=== PATIENT | female | born 1980 | race Caucasian/White ===

== ENCOUNTER 2023-12-14 23:28 | Emergency (ER) | payer OTHER, SELFPAY ==
[2023-12-14 23:44] VITALS: BP 169/94; PULSE 83; TEMP 36.7; O2SAT 98; BMI 21.7
--- NOTE | 2023-12-15 00:11 | ECG_ITS ---
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
--- NOTE | 2023-12-15 00:13 | ED_ITS ---
HPI HPI - General Adult General Chief complaint: Weakness Stated complaint: l flank pain general weakness Time Seen by Provider: 12/14/23 23:52 Source: patient Mode of arrival: walk-in Limitations: no limitations History of Present Illness HPI narrative: This 43-year-old female presents for evaluation of left flank pain with decreased appetite for the past 2 weeks. The patient states that every time she tries to eat or drink something she feels like she needs to belch but she is not belching and then she does not wish to have anything else to eat or drink. She states she basically has no appetite. She denies that she has lost any weight. She has been drinking fluids but states she has not been drinking enough fluids. She does not smoke or drink. She denies any diarrhea but has had small hard yellow bowel movements. She has not had a fever but states she has had cold sweats. She denies any chest pain but has pain in this left flank area with deep breathing. Pain is also made worse with movements such as lying down or suddenly sitting up. She denies any dizziness or syncope. She denies any dysuria or hematuria. She has no focal weakness numbness or tingling. He called her family physician for an appointment but cannot get in until December 25 and states she does not think that she can wait until then to find out what is wrong with her. She has never had a colonoscopy. She is status post hysterectomy. Related Data Home Medications ?Medication ?Instructions ?Recorded ?Confirmed No Known Home Medications 12/14/23 12/14/23 Allergies Allergy/AdvReac Type Severity Reaction Status Date / Time amoxicillin Allergy Intermediate Hives Verified 12/14/23 23:53 Opioids - Morphine Analogues AdvReac Intermediate Vomiting Verified 12/14/23 23:53 Opioid HPI Opioid Management Most Recent Opioid Data: Last Pain Scale 6 12/14/23 23:54 Review of Systems ROS Status of ROS 10 or more systems reviewed and unremark able except as noted in history and below Exam Narrative Exam Narrative: Vital signs and Nursing Notes reviewed: Patient is afebrile with a normal pulse, blood pressure is elevated 169/94, she is not hypoxic with pulse ox of 98% on room air General: Awake, alert, oriented, thin female, no respiratory distress HEENT: Normocephalic atraumatic, mucous membranes are moist and pink, eyes are clear, normal conjunctiva, vision is grossly intact, posterior pharynx is normal in appearance. Neck: Supple, no meningeal signs, no anterior or posterior cervical lymphadenopathy Chest: Lungs are clear to auscultation with good air entry, there is no wheezing rhonchi or rales appreciated no accessory muscle use, patient is speaking in complete sentences-no chest wall tenderness to palpation CVS: Regular rate and rhythm S1-S2, no murmurs rubs or gallops, pulses are brisk and equal bilaterally ABD: Soft, nondistended, nontender, no rebound guarding or rigidity, bowel sounds are normal, no pulsatile masses appreciated, femoral pulses are brisk and equal bilaterally, there is no reproducible tenderness in the epigastrium, right upper quadrant or left upper quadrant. Extremities: Moving all extremities, no lower extremity tenderness or swelling noted, negative Homans' sign, pulses are brisk and equal bilaterally. Mild tenderness to palpation in the left mid to lower flank region. There is no midline bony vertebral tenderness. There is no skin rash noted. Skin: Normal in appearance without rash,pallor, petechiae or purpura Neuro: No focal deficits Constitutional Vital Signs, click to edit/add: Last Vital Signs Temp 98.1 F 12/14/23 23:44 Pulse 63 12/15/23 01:52 Resp 16 12/15/23 01:52 BP 155/93 H 12/15/23 01:52 Pulse Ox 100 12/15/23 01:52 O2 Del Method Room Air 12/14/23 23:44 Course Vital Signs Vital signs: Vital Signs Temperature 98.1 F 12/14/23 23:44 Pulse Rate 83 12/14/23 23:44 Respiratory Rate 16 12/14/23 23:44 Blood Pressure 169/94 H 12/14/23 23:44 Pulse Oximetry 98 12/14/23 23:44 Oxygen Delivery Method Room Air 12/14/23 23:44 Temperature 98.1 F 12/14/23 23:44 Pulse Rate 63 12/15/23 01:52 Respiratory Rate 16 12/15/23 01:52 Blood Pressure 155/93 H 12/15/23 01:52 Pulse Oximetry 100 12/15/23 01:52 Oxygen Delivery Method Room Air 12/14/23 23:44 Medical Decision Making [facility] Narrative Medical decision making narrative: This 43-year-old female, nondrinker, non-smoker presents for evaluation of 2 weeks of left-sided flank pain that is worse with deep breathing and associated with decreased appetite. The patient states every time she tries to eat or drink anything she feels the need to belch but does not belch and then feels full. She denies that she has lost any weight. She is status post hysterectomy. She denies any chest pain but states she does have pain with deep breathing in her left posterior flank area. Her vital signs were normal. EKG done upon arrival was a normal sinus rhythm in the 60s. An IV was placed and she was medicated with IV fluids, Pepcid Toradol and Zofran. This only provided minimal relief for her and she was remedicated with a dose of [place]. She was able to keep that down without difficulty. Routine labs are ordered. She has a normal white count and hemoglobin. Her urine is negative for infection. TSH is normal. Electrolytes, liver function tests, lipase and troponin are all normal. D-dimer was normal. Two-view chest x-ray is negative for acute findings and CT scan of the abdomen pelvis with IV contrast shows an enlarged liver and is otherwise normal. The results of the CT scan were discussed with her and she was given a copy for her records. She is feeling somewhat better at this time and feels comfortable being discharged. I suggested that she follow-up for an outpatient ultrasound of her abdomen as well as she will be referred to outpatient general surgery. She will be discharged home with a prescription for [place] and Protonix and a requisition for the ultrasound. She states she is going to follow-up later today with her family physician and discussed the findings from the ER visit. Her sister states that there is a family history of fatty liver disease. The CT scan did not specifically mention fatty liver disease but this is an option and will be further evaluated with the ultrasound. Medical Records Medical records narrative: The [address] [address] XRay Report Signed Patient: LORA MARTINS MR#: [id number] : 1980 Acct:[id number] Age/Sex: 43 / F ADM Date: 12/14/23 Loc: ER Attending Dr: Ordering Physician: Mayuri Diaz Date of Service: 12/15/23 Procedure(s): XR chest 2V Accession Number(s): [id number] cc: Cyndi Epperson NP; Mayuri Marker~ The [address] [address] Patient Name: LORA MARTINS MRN: [facility]:[id number] date: 1980 Sex: F Assigned Patient Location: ER Current Patient Location: ER Accession/Order Number: [id number] Exam Date: 12/15/2023 01:12 Report Date: 12/15/2023 03:25 At the request of: MAYURI MARKER Procedure: XR chest 2V EXAM: XR chest 2V HISTORY: LEft posterior back pain, SOB COMPARISON: None. TECHNIQUE: PA and lateral chest FINDINGS: Both lungs are well-aerated, expanded and clear. Well-defined pleural margins. Normal heart size and vasculature. Normal skeletal structures and framework. XR/XR chest 2V IMPRESSION: Clear lungs. No acute process or findings. Electronically authenticated by: ROB TSAI Date: 12/15/2023 03:25 [place] [address] CT Scan Report Signed Patient: LORA MARTINS MR#: [id number] : 1980 Acct:[id number] Age/Sex: 43 / F ADM Date: 12/14/23 Loc: ER Attending Dr: Ordering Physician: Mayuri Diaz Date of Service: 12/15/23 Procedure(s): CT abdomen pelvis w con Accession Number(s): [id number] cc: Cyndi Epperson NP~ The [place] [id number] Patient Name: LORA MARTINS MRN: [facility]:[id number] date: 1980 Sex: F Assigned Patient Location: ER Current Patient Location: ER Accession/Order Number: [id number] Exam Date: 12/15/2023 01:23 Report Date: 12/15/2023 03:34 At the request of: MAYURI MARKER Procedure: CT abdomen pelvis w con CT OF THE ABDOMEN AND PELVIS WITH CONTRAST: 12/15/2023 1:23 AM EDT CLINICAL HISTORY: Left flank pain x2 weeks increasing weakness for 2 days. Decreased appetite. Left upper quadrant pain. COMPARISONS: None. TECHNIQUE: Thin section axial CT images were obtained from the lung bases to the pubis symphysis. This CT exam was performed using one or more of the following dose reduction techniques: Automated exposure control, adjustment of the mA and/or kV according to patient size, or use of iterative reconstruction technique. Thin section coronal and sagittal images were reconstructed from the axial data set. Delayed scans obtained through the bladder and pelvis. All images were reviewed and interpreted. CONTRAST: Intravenous contrast was administered. Type and amount is documented at the local institution. FINDINGS: LUNG BASES: No consolidation or pleural fluid. LIVER: Liver appears enlarged extending almost 22 cm in length versus Roge lobe. Slightly heterogeneous enhancement of liver. Could be due to timing of bolus. Correlate with hepatic biopsies with any underlying hepatocellular disease. Normal portal vein enhancement. GALLBLADDER: Normal. BILIARY TREE: No ductal dilatation. PANCREAS: Normal. SPLEEN: Normal. ADRENALS: Normal. KIDNEYS: Simple anterior mid pole right renal cyst measures approximately 1 x 1 cm. Mean attenuation values 17 Hounsfield units. Both kidneys otherwise are normal. No hydronephrosis or urinary tract calculi. URINARY BLADDER: Grossly unremarkable. PELVIC STRUCTURES: Query partial hysterectomy. Poorly with surgical history. SMALL: No evidence of obstruction, gross mass, or inflammatory change. LARGE BOWEL: There is some mild wall thickening at the rectosigmoid. Nonspecific. Correlate for nonspecific inflammation. There is no significant diverticulosis. There is no evidence of diverticulitis. APPENDIX: No active disease with normal appendix. LYMPH NODES: No pathologically enlarged lymph nodes identified. PERITONEUM: No intraperitoneal free air. No free intraperitoneal fluid. MESENTERY: Unremarkable. RETROPERITONEUM: The retroperitoneum is unremarkable. AORTA: Normal in caliber. BODY WALL: No body wall mass. OSSEOUS STRUCTURES: Normal osseous structures and joints. CT/CT abdomen pelvis w con IMPRESSION: 1. Heterogeneous enlarged liver. Correlate with labs. 2. No acute bowel or inflammatory findings. Normal appendix. 3. Simple 1 cm right renal cyst. Electronically authenticated by: ROB TSAI Date: 12/15/2023 03:34 Lab Data Lab results reviewed: Yes I reviewed the patient's lab results Labs: Lab Results 12/14/23 12/14/23 Range/Units 23:45 23:50 WBC 8.9 (4.0-11.0) 10^3/uL RBC 4.45 (4.20-5.40) 10^6/uL Hgb 14.3 (12.0-16.0) g/dL Hct 41.3 (36.0-48.0) % MCV 92.8 (81.0-99.0) fL MCH 32.1 (26.7-34.0) pg MCHC 34.6 (29.9-35.2) g/dL RDW 12.7 (11.0-15.0) % Plt Count 181 (150-450) 10^3/uL MPV 10.8 (9.5-13.5) fL Neut % (Auto) 68.1 (43.0-75.0) % Lymph % (Auto) 25.0 (20.5-60.0) % [place] % (Auto) 5.4 (1.7-12.0) % Eos % (Auto) 0.6 L (0.9-7.0) % Baso % (Auto) 0.6 (0.2-2.0) % Neut # (Auto) 6.1 (1.4-6.5) 10^3/uL Lymph # (Auto) 2.2 (1.2-3.8) 10^3/uL [place] # (Auto) 0.5 (0.3-0.8) 10^3/uL Eos # (Auto) 0.1 (0.0-0.7) 10^3/uL Baso # (Auto) 0.1 (0.0-0.1) 10^3/uL Abs Immat Gran (auto) 0.03 (0.00-0.03) 10^3/uL Imm/Tot Granulo (auto) 0.3 (0.0-0.5) % D-Dimer 0.55 (<=0.59) mg/L FEU Sodium 137 (136-145) mmol/L Potassium 4.0 (3.5-5.1) mmol/L Chloride 102 (98-107) mmol/L Carbon Dioxide 30.8 (21.0-32.0) mmol/L Anion Gap 8.2 BUN 15.0 (7.0-18.0) mg/dL Creatinine 0.92 (0.55-1.02) mg/dL Est GFR ( Amer) >60 (>=60) Est GFR (Non-Af Amer) >60 (>=60) BUN/Creatinine Ratio 16.3 Glucose 99 (74-106) mg/dL Lactate 0.7 (0.4-2.0) mmol/L Calcium 9.5 (8.5-10.1) mg/dL Total Bilirubin 0.9 (0.2-1.0) mg/dL AST 11 L (15-37) U/L ALT 20 (14-59) U/L Alkaline Phosphatase 43 L (46-116) U/L Troponin I High Sens <4.0 L (4.0-51.3) pg/mL Total Protein 7.3 (6.4-8.2) g/dL Albumin 4.3 (3.4-5.0) g/dL Globulin 3.0 g/dL Albumin/Globulin Ratio 1.4 Lipase 43.0 (16.0-77.0) U/L TSH 1.073 (0.358-3.740) uIU/mL Urine Color Yellow (YELLOW) Urine Clarity Clear (CLEAR) Urine pH 6.0 (5.0-9.0) Ur Specific [place] 1.025 (1.005-1.025) Urine Protein Negative (NEG/TRACE) mg/dL Urine Glucose (UA) Negative (NEGATIVE) mg/dL Urine Ketones Negative (NEGATIVE) mg/dL Urine Occult Blood Negative (NEGATIVE) Urine Nitrite Negative (NEGATIVE) Urine Bilirubin Negative (NEGATIVE) Urine Urobilinogen 0.2 (0.2-1.0) EU/dL Ur Leukocyte Esterase Negative (NEGATIVE) Urine RBC 0-2 (0-2) #/HPF Urine WBC None seen (NONE SEEN) #/HPF Ur Squamous Epith Cells Rare (NONE/RARE) #/LPF Urine Crystals None seen (None Seen) #/HPF Urine Bacteria None seen (NONE SEEN) #/HPF Urine Casts None seen (NONE SEEN) #/LPF Urine Mucus Trace A (NONE SEEN) Ur Culture Indicated? No ECG Data Attestation: I personally reviewed and interpreted this ECG as follows: (Sinus rhythm at 64 bpm, normal axis, normal intervals, no acute ST segment elevation or T wave inversion) Discharge Plan Discharge Stand Alone Forms: Portal Instructions Chief Complaint: Weakness Clinical Impression: Abdominal pain, Hepatomegaly Patient Disposition: Home, Self-Care Time of Disposition Decision: 04:04 Condition: Good Prescriptions / Home Meds: No Action No Known Home Medications Print Language: Polish Instructions: Abdominal Pain (ED) Additional Instructions: Use pain medications as needed, use Protonix daily as prescribed. Call to schedule an outpatient abdominal ultrasound. Please do not eat or drink anything for 6 to 8 hours before the ultrasound. Referrals: Cyndi Epperson NP [Primary Care Provider] - 1 week Roderick Andrade MD [Physician] - 1 week
[2023-12-15 00:23] LABS: Basophils Absolute Auto 0.1 10^3/uL (0.0-0.1); Basophils Percent Auto 0.6 % (0.2-2.0); Eosinophils Absolute Auto 0.1 10^3/uL (0.0-0.7); Eosinophils Percent Auto 0.6 % (0.9-7.0); Hematocrit 41.3 % (36.0-48.0); Hemoglobin 14.3 g/dL (12.0-16.0); Immature Granulocytes Abs Auto 0.03 10^3/uL (0.00-0.03); Immature Granulocytes Pct Auto 0.3 % (0.0-0.5); Lymphocytes Absolute Auto 2.2 10^3/uL (1.2-3.8); Mean Corpuscular HGB Conc 34.6 g/dL (29.9-35.2); Mean Corpuscular Hemoglobin 32.1 pg (26.7-34.0); Mean Corpuscular Volume 92.8 fL (81.0-99.0); Mean Platelet Volume 10.8 fL (9.5-13.5); Monocytes Absolute Auto 0.5 10^3/uL (0.3-0.8); Monocytes Percent Auto 5.4 % (1.7-12.0); Neutrophils Absolute Auto 6.1 10^3/uL (1.4-6.5); Neutrophils Percent Auto 68.1 % (43.0-75.0); Platelet Count 181 10^3/uL (150-450); Red Blood Count 4.45 10^6/uL (4.20-5.40); Red Cell Distribution Width 12.7 % (11.0-15.0); White Blood Count 8.9 10^3/uL (4.0-11.0)
[2023-12-15 00:29] VITALS: PULSE 67
[2023-12-15 00:30] VITALS: PULSE 65
[2023-12-15 00:30] LABS: D Dimer 0.55 mg/L FEU (<=0.59)
[2023-12-15 00:35] LABS: Troponin I High Sensitivity <4.0 pg/mL (4.0-51.3)
[2023-12-15 00:36] LABS: Bilirubin Urine NEGATIVE (NEGATIVE); Blood Urine NEGATIVE (NEGATIVE); Clarity Urine CLEAR (CLEAR); Color Urine YELLOW (YELLOW); Glucose Urine UA NEGATIVE (NEGATIVE); Ketones Urine NEGATIVE (NEGATIVE); Leukocyte Esterase Urine NEGATIVE (NEGATIVE); Nitrite Urine NEGATIVE (NEGATIVE); Protein Urine NEGATIVE (NEG/TRACE); Specific Gravity Urine 1.025 (1.005-1.025); Urobilinogen Urine 0.2 EU/dL (0.2-1.0)
[2023-12-15 00:36] LABS: Lactate/Lactic Acid 0.7 mmol/L (0.4-2.0)
[2023-12-15 00:41] LABS: Bacteria Urine NONE SEEN #/HPF (NONE SEEN); Crystals Seen? None Seen #/HPF (None Seen); Mucus Urine TRACE (NONE SEEN); RBC Urine 0-2 #/HPF (0-2); Squamous Epithelial Cell Urine RARE #/LPF (NONE/RARE); WBC Urine NONE SEEN #/HPF (NONE SEEN)
[2023-12-15 00:42] LABS: Cast Seen? NONE SEEN #/LPF (NONE SEEN); Urine Culture Indicated NO
[2023-12-15 00:43] LABS: Alanine Aminotransferase 20 U/L (14-59); Albumin Globulin Ratio 1.4; Albumin Level 4.3 g/dL (3.4-5.0); Alkaline Phosphatase 43 U/L (46-116); Anion Gap 8.2; Aspartate Amino Transferase 11 U/L (15-37); BUN Creatinine Ratio 16.3; Bilirubin Total 0.9 mg/dL (0.2-1.0); Calcium 9.5 mg/dL (8.5-10.1); Carbon Dioxide 30.8 mmol/L (21.0-32.0); Chloride 102 mmol/L (98-107); Estimated GFR (African America >60 (>=60); Estimated GFR (Non-African Ame >60 (>=60); Glucose 99 mg/dL (74-106); Sodium 137 mmol/L (136-145); Thyroid Stimulating Hormone 1.073 uIU/mL (0.358-3.740); Total Protein 7.3 g/dL (6.4-8.2)
[2023-12-15] MEDS: ONDANSETRON PF 4 MG/2 ML VIAL IV (00:43)
[2023-12-15] MEDS: 0.9 % SODIUM CHLORIDE 1,000 ML 1000 ML IV (00:43)
[2023-12-15] MEDS: FAMOTIDINE/PF 20 MG/2 ML VIAL IV (00:47)
[2023-12-15] MEDS: KETOROLAC TROMETHAMINE 30 MG/ML VIAL IVP (00:47)
--- NOTE | 2023-12-15 00:48 | CT_ITS ---
The [address] [address] Patient Name: LORA MARTINS MRN: [id number] date: 1980 Sex: F Assigned Patient Location: ER Current Patient Location: ER Accession/Order Number: [id number] Exam Date: 12/15/2023 01:23 Report Date: 12/15/2023 03:34 At the request of: JENNIFER MARKER Procedure: CT abdomen pelvis w con CT OF THE ABDOMEN AND PELVIS WITH CONTRAST: 12/15/2023 1:23 AM EDT CLINICAL HISTORY: Left flank pain x2 weeks increasing weakness for 2 days. Decreased appetite. Left upper quadrant pain. COMPARISONS: None. TECHNIQUE: Thin section axial CT images were obtained from the lung bases to the pubis symphysis. This CT exam was performed using one or more of the following dose reduction techniques: Automated exposure control, adjustment of the mA and/or kV according to patient size, or use of iterative reconstruction technique. Thin section coronal and sagittal images were reconstructed from the axial data set. Delayed scans obtained through the bladder and pelvis. All images were reviewed and interpreted. CONTRAST: Intravenous contrast was administered. Type and amount is documented at the local institution. FINDINGS: LUNG BASES: No consolidation or pleural fluid. LIVER: Liver appears enlarged extending almost 22 cm in length versus Roge lobe. Slightly heterogeneous enhancement of liver. Could be due to timing of bolus. Correlate with hepatic biopsies with any underlying hepatocellular disease. Normal portal vein enhancement. GALLBLADDER: Normal. BILIARY TREE: No ductal dilatation. PANCREAS: Normal. SPLEEN: Normal. ADRENALS: Normal. KIDNEYS: Simple anterior mid pole right renal cyst measures approximately 1 x 1 cm. Mean attenuation values 17 Hounsfield units. Both kidneys otherwise are normal. No hydronephrosis or urinary tract calculi. URINARY BLADDER: Grossly unremarkable. PELVIC STRUCTURES: Query partial hysterectomy. Poorly with surgical history. SMALL: No evidence of obstruction, gross mass, or inflammatory change. LARGE BOWEL: There is some mild wall thickening at the rectosigmoid. Nonspecific. Correlate for nonspecific inflammation. There is no significant diverticulosis. There is no evidence of diverticulitis. APPENDIX: No active disease with normal appendix. LYMPH NODES: No pathologically enlarged lymph nodes identified. PERITONEUM: No intraperitoneal free air. No free intraperitoneal fluid. MESENTERY: Unremarkable. RETROPERITONEUM: The retroperitoneum is unremarkable. AORTA: Normal in caliber. BODY WALL: No body wall mass. OSSEOUS STRUCTURES: Normal osseous structures and joints. CT/CT abdomen pelvis w con IMPRESSION: 1. Heterogeneous enlarged liver. Correlate with labs. 2. No acute bowel or inflammatory findings. Normal appendix. 3. Simple 1 cm right renal cyst. Electronically authenticated by: ROB TSAI Date: 12/15/2023 03:34
--- NOTE | 2023-12-15 00:49 | XR_ITS ---
[address] [address] Patient Name: LORA MARTINS MRN: [id number] date: 1980 Sex: F Assigned Patient Location: ER Current Patient Location: ER Accession/Order Number: [id number] Exam Date: 12/15/2023 01:12 Report Date: 12/15/2023 03:25 At the request of: JENNIFER MARKER Procedure: XR chest 2V EXAM: XR chest 2V HISTORY: LEft posterior back pain, SOB COMPARISON: None. TECHNIQUE: PA and lateral chest FINDINGS: Both lungs are well-aerated, expanded and clear. Well-defined pleural margins. Normal heart size and vasculature. Normal skeletal structures and framework. XR/XR chest 2V IMPRESSION: Clear lungs. No acute process or findings. Electronically authenticated by: ROB TSAI Date: 12/15/2023 03:25
[2023-12-15 01:48] VITALS: BP 155/93
[2023-12-15 01:52] VITALS: BP 155/93; PULSE 63; O2SAT 100
[2023-12-15] MEDS: HYDROCODONE/ACET 5-325 MG TABLET 1 TAB PO (03:15)
== END 2023-12-15 04:16 | disposition home or self-care (01) ==
PROVIDERS: Emergency Provider Emergency Medicine; PCP Nurse Practitioner
DX: R10.9 Unspecified abdominal pain (principal); R16.0 Hepatomegaly, not elsewhere classified; Z90.710 Acquired absence of both cervix and uterus
CPT/HCPCS: 36415; 71046; 74177; 80053; 81001; 83605; 83690; 84443; 84484; 85025; 85378; 93005; 96374; 96375; 99285; J1885; J2405; Q9967

== ENCOUNTER 2023-12-16 13:57 | Outpatient (OUT) | payer OTHER, SELFPAY ==
--- NOTE | 2023-12-16 14:00 | US_ITS ---
The [address] [address] Patient Name: LORA MARTINS MRN: [id number] date: 1980 Sex: F Assigned Patient Location: US Current Patient Location: US Accession/Order Number: [id number] Exam Date: 12/16/2023 14:05 Report Date: 12/16/2023 15:43 At the request of: JENNIFER MARKER Procedure: US right upper quadrant EXAMINATION: US right upper quadrant HISTORY: Abdominal Pain, Hepatosplenomegaly COMPARISON: CT abdomen pelvis 12/15/2023 TECHNIQUE: Transabdominal evaluation of the right upper quadrant. FINDINGS: LIVER: Slightly prominent, but normal echotexture. No mass or suspicious findings. Color Doppler demonstrates patent hepatic veins. PORTAL VEIN: Duplex Doppler demonstrates normal hepatopetal flow pattern with flow velocity averaging 29 cm/s. GALLBLADDER: No visible gallstones, wall thickening, or pericholecystic free fluid. Negative sonographic Umanzor's sign. BILIARY: No abnormal dilation or stones. Common bile duct diameter is within normal limits. PANCREAS: No visible mass, abnormal atrophy, or duct dilation. KIDNEY: No hydronephrosis. 1.3 cm benign-appearing cyst. No visible mass or stones. Size: 9.8 x 4.9 x 4.1 cm US/US right upper quadrant IMPRESSION: 1. No acute or specific findings to account for patient's symptoms. 2. No suspicious abnormality of the liver. Electronically authenticated by: RAMYA LAYNE Date: 12/16/2023 15:43
== END 2023-12-16 13:58 | disposition home or self-care (01) ==
LOC: US 13:57
PROVIDERS: PCP Nurse Practitioner; Visit Provider Emergency Medicine
DX: R10.84 Generalized abdominal pain (principal); R16.0 Hepatomegaly, not elsewhere classified
CPT/HCPCS: 76705

== ENCOUNTER 2024-01-02 14:34 | Outpatient (OUT) | payer OTHER, SELFPAY ==
--- OUTSIDE RECORDS SUMMARY | 2024-01-02 14:54 | XMS_ITS | CCD ---
Author Organization [facility] Care Team Providers Care Confectionery Cooker Name Role Phone [facility] HAIR DRESSER CYNDI Consulting Unavailable AICHOLZ, HAIR DRESSER CYNDI Primary Care Unavailable AICHOLZ, HAIR DRESSER CYNDI Attending Unavailable AICHOL, HAIR DRESSER CYNDI Admitting Unavailable SNOWEBSILVIA, DR BURAK Rogers Consulting Unavailable KARASIK ., DR HDZ Consulting Unavailabl e AICHHOLZ, [facility] CYNDI Primary Care Unavailable KARASIK ., DR HDZ Attending Unavailabl e KARASIK ., DR HDZ Admitting Unavailabl e PIPPA LOVING Consulting Unavaila ble GEMNUPUR PENNINGTON Consulting Unavailable KARASIK ., DR HDZ Consulting Unavailabl e AICHHOLZ, [facility] CYNDI Primary Care Unavailable KARASIK ., DR HDZ Attending Unavailabl e KARASIK ., DR HDZ Admitting Unavailabl e CEDENO, RAMON Consulting Unavailable AICHHOLZ, HAIR DRESSER CYNDI Primary Care Unavailable KARASIK ., DR HDZ Attending Unavailabl e KARASIK ., DR HDZ Admitting Unavailabl e AICHHOLZ, [facility] CYNDI Primary Care Unavailable KARASIK ., DR HDZ Attending Unavailabl e KARASIK ., DR HDZ Admitting Unavailabl e AICHHOLZ, [facility] CYNDI Primary Care Unavailable KARASIK ., DR HDZ Attending Unavailabl e KARASIK ., DR HDZ Admitting Unavailabl e KARASIK ., DR HDZ Consulting Unavailabl e AICHHOLZ, [facility] CYNDI Primary Care Unavailable KARASIK ., DR HDZ Attending Unavailabl e KARASIK ., DR HDZ Admitting Unavailabl e KARASIK ., DR HDZ Consulting Unavailabl e KARESTEPHANIA SUN Admitting Unavailable AICHHOLZ, HAIR DRESSER CYNDI Primary Care Unavailable KARASIK ., DR HDZ Attending Unavailabl e TED, DR MIKE Flores Consulting Unavailable AICHHOLZ, HAIR DRESSER CYNDI Primary Care Unavailable AICHHOLZ, HAIR DRESSER CYNDI Attending Unavailable AICHHOLZ, HAIR DRESSER CYNDI Admitting Unavailable AICHHOLZ, HAIR DRESSER CYNDI Consulting Unavailable AICHHOLZ, HAIR DRESSER CYNDI Consulting Unavailable AICHHOLZ, HAIR DRESSER CYNDI Primary Care Unavailable AICHHOLZ, HAIR DRESSER CYNDI Attending Unavailable AICHHOLZ, HAIR DRESSER CYNDI Admitting Unavailable AICHHOLZ, HAIR DRESSER CYNDI Consulting Unavailable AICHHOLZ, HAIR DRESSER CYNDI Primary Care Unavailable AICHHOLZ, HAIR DRESSER CYNDI Attending Unavailable AICHHOLZ, HAIR DRESSER CYNDI Admitting Unavailable AICHHOLZ, HAIR DRESSER CYNDI Consulting Unavailable AICHHOLZ, HAIR DRESSER CYNDI Primary Care Unavailable AICHHOLZ, HAIR DRESSER CYNDI Attending Unavailable AICHHOLZ, HAIR DRESSER CYNDI Admitting Unavailable KARASIK ., DR HDZ Consulting Unavailabl e AICHHOLZ, HAIR DRESSER CYNDI Primary Care Unavailable KARASIK ., DR HDZ Attending Unavailabl e KARASIK ., DR HDZ Admitting Unavailabl e KARASIK ., DR HDZ Consulting Unavailabl e AICHHOLZ, HAIR DRESSER CYNDI Primary Care Unavailable KARASIK ., DR HDZ Attending Unavailabl e KARASIK ., DR HDZ Admitting Unavailabl e HEATHER SWEENEY Consulting Unavailable KARASIK ., DR HDZ Procedure Practitioner Pina vailable ADINA YIP Consulting Unavailable AICHHOLZ, HAIR DRESSER CYNDI Primary Care Unavailable KARASIK ., DR HDZ Attending Unavailabl e KARASIK ., DR HDZ Admitting Unavailabl e AICHHOLZ, CYNDI J Primary Care Physician Reza Bedoya Attending Unavailable AICHHOLZ, CYNDI Attending Unavailable SAMUEL MCDERMOTT Attending Unavailable Reza Bedoya Attending Unavailable Booker Shelley Attending Unavaila ble Allergies Allergy Classification Reported Allergen(s) Allergy Type Date of Onset Reaction(s) Facility (1 source) Penicillins Drug allergy (disorder) 5 [facility] Repository (1 source) Mis-Other; Translations: [[facility]] Propensity to adverse reactions (disorder) 2 [facility] Rep[facility] (5 sources) Amoxicillin; Translations: [amoxicillin] Drug Allergy Unkempt [facility] Medications Current Medications Medication Drug Class(es) Dates Sig (Normalized) Sig (Original) dicyclomine hydrochloride 10 mg oral capsule (1 source) Anticholinergic Start: 12-19-2023 End: 12-26-2023 take 1 capsule by mouth every six hours as needed for muscle spasms Bentyl 10 mg Cap 10 mg = 1 cap(s), Oral, q6hr, PRN Spasm, X 7 day(s), # 30 cap(s), Refills(s) 0, Pharmacy: [facility]/pharmacy #[id number], 170.2, cm, 12/19/23 16:15:00 EDT, Height/Length Dosing, 57.8, kg, 12/19/23 16:15:00 EDT, Weight Dosing Start Date: 12/19/23 Stop Date: 12/26/23 Status: Ordered traMADol hydrochloride 50 mg oral tablet (1 source) Opioid Agonist Start: 12-19-2023 take 0.5-1 tablets by mouth every six hours as needed for pain traMADOL 50 mg Tab 0.5-1 tab(s), Oral, q6hr, PRN as needed for pain, # 12 tab(s), Refills(s) 0, Pharmacy: [facility]/pharmacy #[id number], 170.2, cm, 12/19/23 16:15:00 EDT, Height/Length Dosing, 57.8, kg, 12/19/23 16:15:00 EDT, Weight Dosing Start Date: 12/19/23 Status: Ordered Problems Active Problems Problem Classification Problem Date Documented Date Episodic/Chronic Abdominal pain (2 sources) Pelvic and perineal pain; Translations: [Abdominal pain] Onset: 03-30-2022 Episodic Endometriosis (1 source) Endometriosis, unspecified; Translations: [ENDOMETRIOSIS UNSPECIFIED] Onset: 03-30-2022 Chronic Immunizations and screening for infectious disease (1 source) Encounter for screening for human papillomavirus (HPV); Translations: [ENC SCREENING HUMAN PAPILLOMAVIRUS] Onset: 09-19-2022 Episodic Menstrual disorders (7 sources) Dysmenorrhea, unspecified; Translations: [Excessive and frequent menstruation with regular cycle] Onset: 02-01-2022 Chronic Other female genital disorders (4 sources) Unspecified dyspareunia; Translations: [UNSPECIFIED DYSPAREUNIA] Onset: 03-22-2022 Chronic Other liver diseases (1 source) Large liver; Translations: [Hepatomegaly, not elsewhere classified] Onset: 12-19-2023 Episodic Other screening for suspected conditions (not mental disorders or infectious disease) (8 sources) Encounter for screening for malignant neoplasm of cervix; Translations: [Other abnormal and inconclusive findings on diagnostic imaging of breast] Onset: 04-08-2022 Episodic Unclassified (1 source) PERSONAL HISTORY OF COVID-19; Translations: [PERSONAL HISTORY OF COVID-19] Onset: 03-30-2022 Unclassified (4 sources) CONTACT W/AND (SUSP) EXPOS COVID-19; Translations: [CONTACT W/AND (SUSP) EXPOS COVID-19] Onset: 01-06-2022 Past or Other Problems Problem Classification Problem Date Documented Da te Episodic/Chronic Contraceptive and procreative management (1 source) Tubal ligation status; Translations: [TUBAL LIGATION STATUS] Onset: 03-30-2022 Episodic Deficiency and other anemia (1 source) Anemia, unspecified; Translations: [ANEMIA UNSPECIFIED] Onset: 03-30-2022 Episodic Inflammatory diseases of female pelvic organs (1 source) Female pelvic peritoneal adhesions (postinfective); Translations: [FE PELV PERITON ADHES POSTINFECTIVE] Onset: 02-15-2022 Episodic Malaise and fatigue (1 source) Other fatigue; Translations: [OTHER FATIGUE] Onset: 02-15-2022 Episodic Nonmalignant breast conditions (4 sources) Unspecified lump in the left breast, lower outer quadrant; Translations: [Other benign mammary dysplasias of left breast] Onset: 09-22-2021 Episodic Nutritional deficiencies (5 sources) Iron deficiency; Translations: [IRON DEFICIENCY] Onset: 03-09-2022 Episodic Screening and history of mental health and substance abuse codes (1 source) Personal history of nicotine dependence; Translations: [PERSONAL HISTORY OF NICOTINE DEPEND] Onset: 03-30-2022 Episodic Unclassified (1 source) CONTACT W/AND (SUSP) EXPOS COVID-19; Translations: [CONTACT W/AND (SUSP) EXPOS COVID-19] Onset: 01-05-2022 Results Test Name Value Interpretation Reference Range Facility CT Abdomen/Pelvis w/ Contras ton 08-13-2024 CT Abdomen/Pelvis w/ Contrast Exam Date/Time: 12/19/2023 19:53 EDT Reason for Exam: Pain Report IMPRESSION: NO ACUTE INTRA-ABDOMINAL PROCESS IDENTIFIED. EXAM: CT Abdomen/Pelvis w/ Contrast DATE: 12/19/2023 7:33 PM CLINICAL HISTORY: Pain. COMPARISON: None available. TECHNIQUE: Spiral imaging was obtained of the abdomen and pelvis after the uneventful infusion of approximately 100 mL of Isovue [address] scans at this facility use dose modulation, iterative reconstruction, and/or weight based dosing when appropriate to reduce radiation dose to as low as reasonably achievable. Unless otherwise stated, incidental findings identified in this report do not require routine follow-up imaging. FINDINGS: Liver: Borderline enlarged by volume with a developmentally elongated right lobe. No significant fatty infiltration, suspicious mass or lesion. Approximately 4 mm nonenhancing fluid density cyst superior medial segment of the left lobe (image 10 - axial series 2). Biliary: The gallbladder is unremarkable. No abnormal biliary ductal dilatation. Pancreas: No mass, organized fluid collection, or abnormal pancreatic ductal dilatation. Spleen: Unremarkable. Adrenals: Unremarkable. Kidneys: No hydronephrosis, significant urinary tract calculi, or suspicious mass. Two nonenhancing fluid density right renal cysts. GI tract: No abnormal dilation or wall thickening. Normal appendix. Lymph nodes: No pathologically enlarged lymph nodes. Mesentery/peritoneu m: No ascites or mass. Retroperitoneum: No inflammatory changes or mass. Pelvis: The urinary bladder and adnexa are unremarkable. Previous hysterectomy. Vasculature: No aneurysm or dissection. Musculoskeletal: No acute osseous findings identified. Lower thorax: Noncontributory. Report Ordering Provider: Emily Troy FINAL REPORT Dictated: 12/20/2023 9:[address] MD Signed (Electronic Signature): 12/20/2023 9:42 am Signed by: Jayant St MD Transcribed by: YAHIR Technologist: SELENA Technical Comments GFR (mL/min/1/73m2) 80 Contrast: Isovue 300 Contrast amount in ml's: 100 Normal [facility] ED Note-Physicianon 12-20-19 ED Note-Physician ED Note-Physician Basic Information Time Seen: Emily Troy PA-C. 12/19/2023 17:17 Chief Complaint was at [facility] for [facility] pain. had ct's done. still has pain and says hair is falling out and lack of appetite History of Present Illness This patient presents emergency department chief complaint of abdominal pain. She states she is unable to eat because of severe pain. The eating does not make the pain any better, it does not make it any worse. She just does not have an appetite. The patient states she was seen at [facility] last Tuesday. She states they did a CT scan that showed an enlarged liver. She states they also did an ultrasound but she does not think it showed anything. The patient denies any fevers chills or sweats. She is nauseated but does not vomiting. She denies any changes in her bowel habits. She denies any urinary burning frequency or urgency. The patient denies tobacco abuse, alcohol abuse, street drug use. She has had a partial hysterectomy. The patient's is accompanying her very worried because he thinks she is becoming malnourished. He states she has lost a lot of weight in the last month. Review of Systems Constitutional: Denies weight loss, fevers, chills, sweats, malaise Eyes: Denies visual changes, eye pain, double vision, scotomas, floaters ENT: Denies runny nose, epistaxis, sinus pain, ear pain, ringing in ears, tooth ache, sore throat, pain with swallowing Cardiovascular: Denies chest pain, shortness of breath, orthopnea, edema, palpitations, loss of consciousness, claudication Respiratory: Denies cough, sputum production, wheezing, hemoptysis, shortness of breath, dyspnea on exertion Gastrointestinal: Denies difficulty swallowing, indigestion, bloating, vomiting, diarrhea, constipation, hematochezia, melena. + Abdominal pain, abdominal cramping, loss of appetite, unintentional weight loss, nausea Genitourinary: Denies any incontinence of urine, dysuria, hematuria, nocturia, polyuria, hesitancy, frequency, urgency, burning Musculoskeletal: Denies joint pain, morning stiffness, joint swelling, decreased range of motion, crepitus Integumentary: Denies any pruritus, rashes, lesions, wounds, petechiae Neurologic: Denies any changes in sight, smell, hearing, taste, seizures, headache, paresthesia, numbness, weakness, balance disturbance Psychiatric denies any depression, change in sleep patterns, anxiety, difficulty concentrating, paranoia, anhedonia, lack of energy, beatriz Hematologic/lymphat ic: Denies any purpura, petechiae, excessive bleeding, bruising Physical Exam Vitals & Measurements T: 36.8 ?C(Oral) HR: 64(Monitored) RR: 18 BP: 127/87 SpO2: 100% HT: 170.18 cm WT: 57.8 kg BMI: 19.96 Vital signs and nursing notes reviewed. General: Awake, alert, NAD. HEENT: Head is normocephalic, atraumatic. PERRL. EOMI. Sclerae are anicteric. External ears are normal. TMs are intact bilaterally. Canals are clear bilaterally. Nares are patent bilaterally. Oral mucosa is pink and moist. No lesions noted. Tongue protrudes in midline. Uvula rises with phonation. Neck is supple, no no palpable adenopathy. No JVD. Trachea is midline. Thorax: Symmetrical rise and fall Lungs: Clear to auscultation throughout all norton, no wheezes, no crackles Heart: Regular rate and rhythm. No murmur, gallop, or rub Abdomen: Diffuse tenderness on palpation. Bowel sounds are present active and normal. No organomegaly. No palpable masses. No CVA tenderness. Extremities: Motor sensory pulses intact x4 extremities. No lower extremity edema. Skin: No lesions, rashes, ulcerations. No bruising or petechiae. Color appropriate, warm and dry Neuro: No oriented x3, no focal neuro deficits Psych: Mood and affect are normal Medical Decision Making MEDICAL DECISION MAKING Number and Complexity of Problems Differential Diagnosis: Colitis, gastroenteritis, ileus, small bowel obstruction, pancreatitis, cholecystitis, irritable bowel disease, Crohn's disease MDM Data External documents reviewed: OARRS report My EKG interpretation: Noted in chart if applicable My CT interpretation: Noted in chart if applicable My X-ray interpretation: Noted in chart if applicable My Ultrasound interpretation: Not applicable Decision rules/scores evaluated: Noted in chart if applicable Discussed with: Not applicable Treatment and Disposition ED Course: Patient was interviewed and examined. The appropriate ER workup was initiated. Patient was given liter normal saline wide open. Patient was medicated with a dose of morphine and ondansetron for nausea and pain. The blood count 11.5, hemoglobin 14.7, hematocrit 42.6, platelet 173. Pro time 11.8, INR 1.05, PTT 29.0. CMP sodium 138, potassium 4.3, chloride 103, CO2 29, BUN 17, creatinine 0.9, glucose 92, calcium 9.7, remainder of CMP is unremarkable. 0-hour troponin 2.70, [address] scan of the abdomen and pelvis tonight is remarkable for liver is enlarged to 21 cm in length (more content not included)... Normal [facility] Comment on above: Result Comment: Elec tronically Signed By: Emily Troy PA-C\.br\Date and Time Signed: 12/19/23 23:05 EDT\.br\Electronically Co-Signed By: Emily Troy PA-C\.br\Date and Time Co-Signed: 12/19/23 23:06 EDT\.br\Electronically Co-Signed By: Emily Troy PA-C\.br\Date and Time Co-Signed: 12/19/23 23:22 EDT\.br\Electronically Co-Signed By: Reza Bedoya DO\.br\Date and Time Co-Signed: 12/20/23 07:02 EDT BMPon 12-19-2023 Anion gap [Moles/Vol] 10 mmol/L Normal 6-16 [facility] Comment on above: Performed By: #### 2 [id number] #### [facility] [address] [place] [address] Calcium [Mass/Vol] 9.7 mg/dL Normal 8.9-11.1 [facility] Comment on above: Performed By: #### 2 [id number] #### [facility] [address] [place] [address] Chloride [Moles/Vol] 103 mmol/L Normal 101-111 [facility] Comment on above: Performed By: #### 2 [id number] #### [facility] [address] [place] [address] CO2 [Moles/Vol] 29 mmol/L Normal 21-31 [facility] Comment on above: Performed By: #### 2 [id number] #### [facility] [address] [place] [address] Creatinine [Mass/Vol] 0.9 mg/dL Normal 0.5-1.3 [facility] Comment on above: Performed By: #### 2 [id number] #### [facility] [address] [place] [address] Glucose [Mass/Vol] 92 mg/dL Normal 55-199 [facility] Comment on above: Performed By: #### 2 [id number] #### [facility] [address] [place] [address] Potassium [Moles/Vol] 4.3 mmol/L Normal 3.5-5.3 [facility] Comment on above: Performed By: #### 2 [id number] #### [facility] [address] [place] [address] Sodium [Moles/Vol] 138 mmol/L Normal 135-145 [facility] Comment on above: Performed By: #### 2 [id number] #### [facility] [address] [place] [address] Urea nitrogen [Mass/Vol] 17 mg/dL Normal 5-21 [facility] Comment on above: Performed By: #### 2 [id number] #### [facility] [address] [place] [address] Urea nitrogen/Creatinine [Mass ratio] 19 No Units Normal 10-20 [facility] Comment on above: Performed By: #### 2 [id number] #### [facility] [address] [place] [address] CBC w/ Auto Diffon 4 Basophils/100 WBC (Bld) 0.5 % Normal 0.0-2.0 [facility] Comment on above: Performed By: #### 2 [id number] #### [facility] [address] [place] [address] Basophils/Leukocytes Auto (Bld) [Pure # fraction] 0.1 E9/L Normal 0.0-0.2 [facility] Comment on above: Performed By: #### 2 [id number] #### [facility] [address] [place] [address] Eosinophils (Bld) [#/Vol] 0.1 E9/L Normal 0.0-0.5 [facility] Comment on above: Performed By: #### 2 [id number] #### [facility] [address] [place] [address] Eosinophils/100 WBC (Bld) 0.6 % Normal 0.0-8.0 [facility] Comment on above: Performed By: #### 2 [id number] #### [facility] [address] [place] [address] Erythrocyte distribution width (RBC) [Ratio] 13.1 % Normal 10.9-14.2 [facility] Comment on above: Performed By: #### 2 [id number] #### [facility] [address] [place] [address] Hematocrit (Bld) [Volume fraction] 42.6 % Normal 34.0-46.0 [facility] Comment on above: Performed By: #### 2 [id number] #### [facility] [address] [place] [address] Hemoglobin (Bld) [Mass/Vol] 14.7 g/dL Normal 12.0-16.0 [facility] Comment on above: Performed By: #### 2 [id number] #### [facility] [address] [place] [address] Lymphocytes (Bld) [#/Vol] 2.2 E9/L Normal 1.0-4.0 [facility] Comment on above: Performed By: #### 2 [id number] #### [facility] [address] [place] [address] Lymphocytes/100 WBC (Bld) 18.7 % Normal 14.0-50.0 [facility] Comment on above: Performed By: #### 2 [id number] #### [facility] [address] [place] [address] MCH (RBC) [Entitic mass] 31.5 pg Normal 27.0-34.0 [facility] Comment on above: Performed By: #### 2 [id number] #### [facility] [address] [place] [address] MCHC (RBC) [Mass/Vol] 34.5 g/dL Normal 31.4-36.0 [facility] Comment on above: Performed By: #### 2 [id number] #### [facility] [address] [place] [address] MCV (RBC) [Entitic vol] 91.3 fL Normal 80.0-100.0 [facility] Comment on above: Performed By: #### 2 [id number] #### [facility] [address] [place] [address] Monocytes (Bld) [#/Vol] 0.6 E9/L Normal 0.2-1.0 [facility] Comment on above: Performed By: #### 2 [id number] #### [facility] [address] [place] [address] Neutrophils (Bld) [#/Vol] 8.7 E9/L High 2.0-7.5 [facility] Comment on above: Performed By: #### 2 [id number] #### [facility] [address] [place] [address] Neutrophils/100 WBC (Bld) 75.4 % High 36.0-75.0 [facility] Comment on above: Performed By: #### 2 [id number] #### [facility] [address] [place] [address] Platelet mean volume (Bld) [Entitic vol] 8.9 fL Normal 6.4-10.8 [facility] Comment on above: Performed By: #### 2 [id number] #### [facility] [address] [place] [address] Platelets (Bld) [#/Vol] 173.0 E9/L Normal 150.0-500.0 [facility] Comment on above: Performed By: #### 2 [id number] #### [facility] [address] [place] [address] RBC (Bld) [#/Vol] 4.7 E12/L Normal 4.3-5.9 [facility] Comment on above: Performed By: #### 2 [id number] #### [facility] [address] [place] [address] WBC corrected for nucl RBC Auto (Bld) [#/Vol] 11.5 E9/L High 4.0-11.0 [facility] Comment on above: Performed By: #### 2 [id number] #### [facility] [address] [place] [address] CHEMISTRYOrdered By: SYSTEM SYSTEM on 12-19-2023 Albumin [Mass/Vol] 4.3 g/dL Normal 3.3 - 5.0 gm/dL [facility] Albumin/Globulin [Mass ratio] 2.0 {ratio} Normal 1.1 - 2.2 [facility] ALP [Catalytic activity/Vol] 28 [iU]/d Normal 21 - 98 Int._Unit/L [facility] ALT No additional P-5'-P [Catalytic activity/Vol] 14 [iU]/d Normal 6 - 46 Int._Unit/L [facility] AST [Catalytic activity/Vol] 14 [iU]/d Normal 5 - 43 Int._Unit/L [facility] Bilirubin [Mass/Vol] 1.0 mg/dL Normal 0.0 - 1 .1 mg/dL [facility] Bilirubin.direct [Mass/Vol] 0.1 mg/dL Normal 0.0 - 0.4 mg/dL [facility] Bilirubin.indirect [Mass or moles/Vol] 0.9 mg/dL Normal 0.1 - 0.9 mg/dL [facility] Globulin (S) [Mass/Vol] 2.1 g/dL Normal 1.4 - 4.0 gm/dL [facility] Lipase [Catalytic activity/Vol] 18 U/L Normal 13 - 58 unit/L [facility] Protein [Mass/Vol] 6.4 g/dL Normal 6.0 - 7.8 gm/dL [facility] Troponin HS 2.40 pg/mL Low 10.10 - 27.10 pg/mL [facility] Comment on above: Interpretive Data: T he 95% CI (Confidence Interval) PPV (Positive Predictive Value) for myocardial infarction in females is 38 pg/mL, in males 51 pg/mL. The results should be used in conjunction with clinical conditions of myocardial infarction. (Access High Sensitivity Troponin I Instructions For Use, [email or web address], December 2017) Anion gap [Moles/Vol] 10 mmol/L Normal 6 - 16 mEq/L R emisol Chem Calcium [Mass/Vol] 9.7 mg/dL Normal 8.9 - 11. 1 mg/dL [facility] Chloride [Moles/Vol] 103 mmol/L Normal 101 - 1 11 mmol/L [facility] CO2 [Moles/Vol] 29 mmol/L Normal 21 - 31 mmol/L [facility] Creatinine [Mass/Vol] 0.9 mg/dL Normal 0.5 - 1.3 mg/dL [facility] eGFR 80 mL/min/1.73 m2 Normal >=59mL/min /1. 73 m2 [facility] Glucose [Mass/Vol] 92 mg/dL Normal 55 - 199 mg/dL [facility] Potassium [Moles/Vol] 4.3 mmol/L Normal 3.5 - 5.3 mmol/L [facility] Sodium [Moles/Vol] 138 mmol/L Normal 135 - 145 mmol/L [facility] Troponin HS 2.70 pg/mL Low 10.10 - 27.10 pg/mL [facility] Comment on above: Interpretive Data: T he 95% CI (Confidence Interval) PPV (Positive Predictive Value) for myocardial infarction in females is 38 pg/mL, in males 51 pg/mL. The results should be used in conjunction with clinical conditions of myocardial infarction. (Access High Sensitivity Troponin I Instructions For Use, [email or web address], December 2017) Urea nitrogen [Mass/Vol] 17 mg/dL Normal 5 - 21 mg/dL Remisol Chem Urea nitrogen/Creatinine [Mass ratio] 19 mg/mg Normal 10 - 20 Remisol Chem COAGULATIONOrdered By: Courtney Sanches on 12-19-2023 aPTT Coag (PPP) [Time] 29.0 s Normal 25.1 - 36.5 second(s) [facility] Auto Coag Comment on above: Interpretive Data: P arameter 15 days - 4 weeks 1 - 5 months 6 - 11 months 1 - 5 years 6 - 10 years 11 - 17 years PTT Mean: 35.4 (27.6-45.6) Mean: 33.5 (24.8-40.7) Mean: 32.4 (25.1-40.7) Mean: 31.6 (24.0-39.2) Mean: 31.6 (26.9-38.7) Mean: 31.0 (24.6-38.4) Pediatric Reference ranges were obtained from a study by crista Avilez al. prepared from 1437 samples obtained at 7 different centers using the same coagulation reagent and instrumentation as [facility]. Currently there are no coagulation studies available worldwide for children to 14 days, and no normal ranges. Heparin therapeutic range (represented by Anti-Factor Xa activity of 0.2 - 0.4 U/mL) corresponds to PTT of 56.6 - 109.0 sec. INR Coag (PPP) [Relative time] 1.05 {INR} Invalid Interpretation Code [facility] Comment on above: Interpretive Data: I NR results are specifically intended to assess patients stabilized on long-term Anticoagulation therapy suggested INR s Less Intensive Anticoagulation 2.0 3.0 Conventional Range 3.0 4.5 PT Coag (PPP) [Time] 11.8 s Normal 9.4 - 1 2.5 second(s) [facility] Comment on above: Interpretive Data: 1 5 days - 4 weeks 1 - 5 months 6 -11 months 1 5 years 6 10 years 11 -17 years Mean: 11.2 (9.5 12.6) Mean: 11.0 (9.7 12.8) Mean: 11.0 (9.8 13.0) Mean: 11.3 (9.9 13.4) Mean: 11.7 (10.0 14.6) Mean: 11.8 (10.0 - 14.1) Pediatric Reference ranges were obtained from a study by crista Avilez alLucy prepared from 1437 samples obtained at 7 different centers using the same coagulation reagent and instrumentation as [facility]. Currently there are no coagulation studies available worldwide for children to 14 days, and no normal ranges. ED Clinical Summaryon 2023 ED Clinical Summary ED Clinical Summary [facility] [address] [place], [place] [address] ED Clinical Summary Person Information Name: LORA MARTINS/NewAbi Age: 43 Years : 1980 Sex: Female Language: Mongolian PCP: CYNDI EPPERSON CNP Marital Status: Single Visit Id: Visit Reason: Poor nutritional intake; Abdominal pain; Chest pressure - Adult; PAIN LT AND RT SIDE PRESURE IN CHEST ARE Speciality: Acuity: 3 Enc Type: Emergency Med Service: Emergency Arrival: 12/19/2023 15:58:56 Discharge: 12/19/2023 23:16:33 LOS: 000 07:18 Checkin: 12/19/2023 15:58:56 Checkout: 12/19/2023 23:16:33 Dispo Type: Home (Routine DC) EVENTS: Event Name Event Status Request Date/Time Start Date/Time Complete Date/Time Arrive Complete 12/19/2023 15:58:56 12/19/2023 15:58:56 12/19/2023 15:58:56 Document Home Meds Request 12/19/2023 15:58:56 Triage Complete 12/19/2023 15:58:56 12/19/2023 16:15:50 12/19/2023 16:15:50 EKG Complete 12/19/2023 16:09:34 12/19/2023 16:13:21 Pending Labs Complete 12/19/2023 16:44:25 12/19/2023 19:44:04 Lab Complete 12/19/2023 16:44:25 12/19/2023 17:38:44 Bed Assign Complete 12/19/2023 17:10:32 12/19/2023 17:10:32 12/19/2023 17:10:32 Dr Exam Complete 12/19/2023 17:10:32 12/19/2023 17:17:52 12/19/2023 17:17:52 RN Exam Complete 12/19/2023 17:10:32 12/19/2023 17:57:38 12/19/2023 17:57:38 Pending Labs Complete 12/19/2023 17:14:32 12/19/2023 17:14:32 12/19/2023 17:14:32 Pending Labs Complete 12/19/2023 17:14:39 12/19/2023 17:14:39 12/19/2023 17:38:44 Lab Complete 12/19/2023 17:14:39 12/19/2023 17:14:39 12/19/2023 17:38:44 Registration Complete 12/19/2023 17:17:52 12/19/2023 18:06:51 12/19/2023 18:06:51 Dr Exam Complete 12/19/2023 17:18:15 12/19/2023 17:18:15 12/19/2023 17:18:15 Pending Labs Cancel 12/19/2023 17:27:43 12/19/2023 18:30:04 Lab Cancel 12/19/2023 17:27:43 12/19/2023 18:30:04 Reg Complete Request 12/19/2023 18:06:51 Reg Bed Request Complete 12/19/2023 18:06:51 12/19/2023 18:06:51 12/19/2023 18:06:51 Pending Labs Complete 12/19/2023 18:30:20 12/19/2023 18:30:20 12/19/2023 18:59:44 Lab Complete 12/19/2023 18:30:20 12/19/2023 18:30:20 12/19/2023 18:59:44 Meds Admin Request 12/19/2023 18:31:36 Meds Admin Request 12/19/2023 18:37:27 Meds Admin Complete 12/19/2023 18:54:41 12/19/2023 19:16:40 Pending Labs Cancel 12/19/2023 18:58:38 12/19/2023 19:05:42 Lab Cancel 12/19/2023 18:58:38 12/19/2023 19:05:42 Pending Labs Complete 12/19/2023 19:06:08 12/19/2023 19:06:08 12/19/2023 19:18:35 Lab Complete 12/19/2023 19:06:08 12/19/2023 19:06:08 12/19/2023 19:18:35 CT Complete 12/19/2023 19:06:20 12/19/2023 19:33:42 12/19/2023 19:53:05 Discharge Complete 12/19/2023 22:43:50 12/19/2023 23:16:39 12/19/2023 23:16:39 Meds Admin Complete 12/19/2023 23:03:24 12/19/2023 23:13:41 Transfer Complete 12/19/2023 23:16:39 12/19/2023 23:16:39 12/19/2023 23:16:39 ADDRESS: [address] [place] [phone] PHYS DOC NOTES: MEDICAL INFORMATION: Prescriptions Given: New Medications [id number], [address], [place] [id number], [phone] dicyclomine (Bentyl 10 mg Cap) 1 Capsules By Mouth every 6 hours as needed Spasm for 7 Days. Refills: 0. tramadol (traMADOL 50 mg Tab) 0.5-1 tab(s) By Mouth every 6 hours as needed as needed for pain. Refills: 0. PATIENT EDUCATION INFORMATION: Instructions: Hepatomegaly, Sgeh-uu-Ymik; Abdominal Pain, Adult Follow up: With: Address: When: Booker Shelley [address] [facility], [address], [address] [phone] Business (1) In 3 days 12/22/2023 With: Address: When: CYNDI EPPERSON [address] [place], [place] [phone] Business (1) In 3 days DIAGNOSIS: 1:Acute abdominal pain; 2:Hepatomegaly Normal [facility] ED Patient Summaryon 024 ED Patient Summary ED Patient Summary [address] [address] Patient Discharge Instructions Person Information Name: LORA MARTINS Age: 43 Years Arrival Date: 12/19/2023 15:58:56 Discharge Diagnosis: 1:Acute abdominal pain; 2:Hepatomegaly Primary Care Physician: CYNDI EPPERSON CNP Provider Information Primary Provider: Reza Bedoya DO [place] Weighmaster:None The exam and treatment you received in the Emergency Department were for an urgent problem and are not intended as complete care. It is important that you follow up with a doctor, nurse practitioner, or physician?s speech language assistant for ongoing care. If your symptoms become worse or you do not improve as expected and you are unable to reach your usual health care provider, you should return to the Emergency Department. We are available 24 hours a day. LORA MARTINS has been given the following list of patient education materials, prescriptions and follow-up instructions: Follow-up Instructions: With: Address: When: Booker Shelley [address] [place] [address], [address], [address] [phone] [place] (1) In 3 days 12/22/2023 With: Address: When: CYNDI EPPERSON [address] [place], [place] [phone] [facility] (1) In 3 days In the event that this physician does not participate in your insurance network, please consult with your insurance company to find a nearby participating provider. Patient Education Materials: Hepatomegaly, Sdza-tr-Ised; Abdominal Pain, Adult A MESSAGE TO ALL PATIENTS REGARDING OPIOIDS PRESCRIPTION OPIOIDS: WHAT YOU NEED TO KNOW Prescription opioids can be used to help relieve qeywlqux-tc-pwevpb pain and are often prescribed following a surgery or injury, or for certain health conditions. These medications can be an important part of the treatment but also come with serious risks. It is important to work with your healthcare provider to make sure you are getting the safest, most effective care. WHAT ARE THE RISKS AND SIDE EFFECTS OF OPIOID USE? Prescription opioids carry serious risks of addiction and overdose, especially with prolonged use. An opioid overdose, often marked by slowed breathing, can cause sudden . The use of prescription opioids can have a number of side effects as well, even when taken as directed: ? Tolerance?meaning you might need to take more of the medication for the same pain relief ? Physical dependence?meaning you have symptoms of withdrawal when a medication is stopped ? Increased sensitivity to pain ? Constipation ? Nausea, vomiting, and dry mouth ? Sleepiness and dizziness ? Confusion ? Depression ? Low levels of testosterone that can result in lower sex drive, energy, and strength ? Itching and sweating RISKS ARE GREATER WITH: ? History of drug misuse, substance use disorder, or overdose ? Mental health conditions (such as depression or anxiety) ? Sleep apnea ? Older age (65 years and older) ? Avoid alcohol while taking prescription opioids. Also, unless specifically advised by your health care provider, medications to avoid include: ? Benzodiazepines (such as Xanax or Valium) ? Muscle relaxants (such as Soma or Flexeril) ? Hypnotics (such as Ambien or Lunesta) ? Other prescription opioids KNOW YOUR OPTIONS Talk to your health care provider about ways to manage your pain that don?t involve prescription opioids. Some of these options may actually work better and have fewer risks and side effects. Options may include: ? Pain relievers such as acetaminophen, ibuprofen, and naproxen ? Some medication that are also used for depression or seizures ? Physical therapy and exercise ? Cognitive behavioral therapy, a psychological, goal-directed approach, in which patients learn how to modify physical, behavioral, and emotional triggers of pain and stress. IF YOU ARE PRESCRIBED OPIOIDS FOR PAIN: ? Never take opioids in greater amounts or more often than prescribed. ? Follow up with your primary health care provider. o Work together to create a plan on how to manage your pain. o Talk about ways to help manage your pain that don?t involve prescription opioids. o Talk about any and all concerns and side effects. ? Help prevent misuse and abuse o Never sell or share prescription opioids. o Never use another person?s prescription opioids. ? Store prescription opioids in a secure place and out of reach of others (this may include visitors, children, friends, and family). ? Safely dispose of unused prescription opioids: Find your community drug take-back program or your pharmacy mail-back program, or flush them down the toilet, following guidance from the Food and Drug Administration (www.fda.gov/Drugs/ ResourcesForYou). ? Visit www.cdc.gov/drugove rdose to learn about the risks of opioids abuse (more content not included)... Normal [facility] HEMATOLOGYOrdered By: SYSTEM SYSTEM on 12-19-2023 Basophils/100 WBC (Bld) 0.5 % Normal 0.0 - 2.0 % Remisol Heme Basophils/Leukocytes Auto (Bld) [Pure # fraction] 0.1 E9/L Normal 0.0 - 0.2 E9/L Remisol Heme Eosinophils (Bld) [#/Vol] 0.1 E9/L Normal 0.0 - 0.5 E9/L Remisol Heme Eosinophils/100 WBC (Bld) 0.6 % Normal 0.0 - 8.0 % Remisol Heme Erythrocyte distribution width (RBC) [Ratio] 13.1 % Normal 10.9 - 14.2 % Remisol Heme Hematocrit (Bld) [Volume fraction] 42.6 % Normal 34.0 - 46.0 % Remisol Heme Hemoglobin (Bld) [Mass/Vol] 14.7 g/dL Normal 12.0 - 16.0 gm/dL Remisol Heme Lymphocytes (Bld) [#/Vol] 2.2 E9/L Normal 1.0 - 4.0 E9/L Remisol Heme Lymphocytes/100 WBC (Bld) 18.7 % Normal 14.0 - 50.0 % Remisol Heme MCH (RBC) [Entitic mass] 31.5 pg Normal 27.0 - 34.0 pg Remisol Heme MCHC (RBC) [Mass/Vol] 34.5 g/dL Normal 31.4 - 36.0 gm/dL Remisol Heme MCV (RBC) [Entitic vol] 91.3 fL Normal 80.0 - 100.0 fL Remisol Heme Monocytes (Bld) [#/Vol] 0.6 E9/L Normal 0.2 - 1.0 E9/L Remisol Heme Monocytes/100 WBC (Bld) 4.8 % Normal 4.0 - 14.0 % Remisol Heme Neutrophils (Bld) [#/Vol] 8.7 E9/L High 2.0 - 7.5 E9/L Remisol Heme Neutrophils/100 WBC (Bld) 75.4 % High 36.0 - 75.0 % Remisol Heme Platelet mean volume (Bld) [Entitic vol] 8.9 fL Normal 6.4 - 10.8 fL Remisol Heme Platelets (Bld) [#/Vol] 173.0 E9/L Normal 150.0 - 500.0 E9/L Remisol Heme RBC (Bld) [#/Vol] 4.7 E12/L Normal 4.3 - 5.9 E12/L Remisol Heme WBC corrected for nucl RBC Auto (Bld) [#/Vol] 11.5 E9/L High 4.0 - 11.0 E9/L Remisol Heme Hep Func Panelon 12-19-2023 Albumin [Mass/Vol] 4.3 g/dL Normal 3.3-5.0 [facility] Comment on above: Performed By: #### 2 [id number] #### [facility] [address] [place] [address] Albumin/Globulin (S) [Mass conc ratio] 2.0 Normal 1.1-2.2 [facility] Comment on above: Performed By: #### 2 [id number] #### [facility] [address] [place] [address] ALP [Catalytic activity/Vol] 28 Int._Unit/L Normal 21-98 [facility] Comment on above: Performed By: #### 2 [id number] #### [facility] [address] [place] [address] ALT No additional P-5'-P [Catalytic activity/Vol] 14 Int._Unit/L Normal 6-46 [facility] Comment on above: Performed By: #### 2 [id number] #### [facility] [address] [place] [address] AST [Catalytic activity/Vol] 14 Int._Unit/L Normal 5-43 [facility] Comment on above: Performed By: #### 2 [id number] #### [facility] [address] [place] [address] Bilirubin [Mass/Vol] 1.0 mg/dL Normal 0.0-1.1 [facility] Comment on above: Performed By: #### 2 [id number] #### [facility] [address] [place] [address] Bilirubin.direct [Mass/Vol] 0.1 mg/dL Normal 0.0-0.4 [facility] Comment on above: Performed By: #### 2 [id number] #### [facility] [address] [place] [address] Bilirubin.indirect [Mass or moles/Vol] 0.9 mg/dL Normal 0.1-0.9 [facility] Comment on above: Performed By: #### 2 [id number] #### [facility] [address] [place] [address] Globulin (S) [Mass/Vol] 2.1 g/dL Normal 1.4-4.0 [facility] Comment on above: Performed By: #### 2 [id number] #### [facility] [address] [place] [address] Protein [Mass/Vol] 6.4 g/dL Normal 6.0-7.8 [facility] Comment on above: Performed By: #### 2 [id number] #### [facility] [address] [place] [address] Lipase Levelon 12-19-2023 Lipase [Catalytic activity/Vol] 18 U/L Normal 13-58 [facility] Comment on above: Performed By: #### 2 [id number] #### [facility] [address] [place] [address] PT & PTTon 12-19-2023 aPTT Coag (PPP) [Time] 29.0 second(s) Normal 25.1-36.5 [facility] Comment on above: Result Comment: Para meter 15 days - 4 weeks 1 - 5 months 6 - 11 months 1 - 5 years 6 - 10 years 11 - 17 years PTT Mean: 35.4 (27.6-45.6) Mean: 33.5 (24.8-40.7) Mean: 32.4 (25.1-40.7) Mean: 31.6 (24.0-39.2) Mean: 31.6 (26.9-38.7) Mean: 31.0 (24.6-38.4) Pediatric Reference ranges were obtained from a study by crista Avilez al. prepared from 1437 samples obtained at 7 different centers using the same coagulation reagent and instrumentation as [facility]. Currently there are no coagulation studies available worldwide for children to 14 days, and no normal ranges. Heparin therapeutic range (represented by Anti-Factor Xa activity of 0.2 - 0.4 U/mL) corresponds to PTT of 56.6 - 109.0 sec. Performed By: #### 1 [id number] #### [facility] [address] [place] [address] INR Coag (PPP) [Relative time] 1.05 {INR} Invalid Interpretation Code [facility] Comment on above: Result Comment: INR results are specifically intended to assess patients stabilized on long-term Anticoagulation therapy suggested INR?s ?Less Intensive Anticoagulation? 2.0 ? 3.0 Conventional Range 3.0 ? 4.5 Performed By: #### 1 [id number] #### [facility] [address] [place] [address] PT Coag (PPP) [Time] 11.8 second(s) Normal 9.4-12.5 [facility] Comment on above: Result Comment: 15 d ays - 4 weeks 1 - 5 months 6 -11 months 1 ? 5 years 6 ? 10 years 11 -17 years Mean: 11.2 (9.5 ? 12.6) Mean: 11.0 (9.7 ? 12.8) Mean: 11.0 (9.8 ? 13.0) Mean: 11.3 (9.9 ? 13.4) Mean: 11.7 (10.0 ? 14.6) Mean: 11.8 (10.0 - 14.1) Pediatric Reference ranges were obtained from a study by Jeancarlos Zacarias et al. prepared from 1437 samples obtained at 7 different centers using the same coagulation reagent and instrumentation as [facility]. Currently there are no coagulation studies available worldwide for children to 14 days, and no normal ranges. Performed By: #### 1 [id number] #### [facility] [address] [place] [address] Troponin 0 Hr.on 12-19-2023 Troponin HS 2.70 pg/mL Low 10.10-27.10 [facility] Comment on above: Result Comment: The 95% CI (Confidence Interval) PPV (Positive Predictive Value) for myocardial infarction in females is 38 pg/mL, in males 51 pg/mL. The results should be used in conjunction with clinical conditions of myocardial infarction. (Access High Sensitivity Troponin I Instructions For Use, [employer], December 2017) Performed By: #### 1 [id number] #### [facility] [address] [place] [address] Troponin 1 Hr.on 12-19-2023 Troponin HS 2.40 pg/mL Low 10.10-27.10 [facility] Comment on above: Order Comment: 1809 Result Comment: The 95% CI (Confidence Interval) PPV (Positive Predictive Value) for myocardial infarction in females is 38 pg/mL, in males 51 pg/mL. The results should be used in conjunction with clinical conditions of myocardial infarction. (Access High Sensitivity Troponin I Instructions For Use, [email or web address], December 2017) Performed By: #### 1 [id number] #### [facility] [address] [place] [address] eGFRon 12-19-2023 eGFR 80 mL/min/1.73 m2 Normal >=59 [facility] Comment on above: Order Comment: Order added by Discern Expert. Performed By: #### 1 [id number] #### [facility] [address] [place] [address] MG MAMM DIAGNOSTIC 3D [place] CA Don 04-08-2022 MG MAMM DIAGNOSTIC 3D [place] CAD Patient: LORA MARTINS Exam Date: 04/08/2022 : 1980 Gender:F Ordering : KP EPPERSON [facility] Admission #: [id number] Family : Order #: [id number] CLICK HERE TO VIEW EXAM RADIOLOGY REPORT PROCEDURE: MAMMOGRAM DIAGNOSTIC 3D BILATERAL CAD, 04/08/2022, 13:50 ULTRASOUND BREAST BILATERAL LIMITED, 04/08/2022, 14:42 COMPARISON: MAMMO POST BIOPSY LEFT, 09/22/2021. INDICATIONS: Abnormal findings on diagnostic imaging of breast Calculator Name NCI Breast Cancer Risk Assessment Tool 5 Year Breast Cancer Risk 1.20% Lifetime Breast Cancer Risk 10.40% Personal Breast Cancer No Personal Ovarian Cancer No Treatments None Family Cancers Grandmother-paterna l with breast cancer at age 55; Father with unknown cancer at age 59; Mother with pancreatic cancer at age 57. LOCATION: [facility] BREAST COMPOSITION: Heterogeneously dense,which may obscure small masses. FINDINGS: DIAGNOSTIC CATEGORY 2--BENIGN FINDING. NO CHANGE FROM COMPARISON. Scattered benign-appearing nodules are present. Scattered benign-appearing calcifications are present. Scattered benign-appearing lymph nodes are present. RIGHT BREAST: No new significant suspicious finding. Stable calcifications and nodules. Ultrasound demonstrates unchanged 4 mm cyst with debris 7 o'clock LEFT BREAST: No significant suspicious finding. Ultrasound demonstrates complex cyst 5 mm 12 o'clock and micro clip marker within a complex cyst at the 4 o'clock position RECOMMENDATIONS: ROUTINE MAMMOGRAM AND CLINICAL EVALUATION IN 12 MONTHS. PLEASE NOTE: A NORMAL MAMMOGRAM DOES NOT EXCLUDE THE POSSIBILITY OF BREAST CANCER. A CLINICALLY SUSPICIOUS PALPABLE LUMP SHOULD BE BIOPSIED. Dictated by: Mike Jean MD on 04/08/2022 at 15:20 Approved by: Mike Jean MD on 04/08/2022 at 15:21 Normal [facility] US BREAST [place] LIMITEDon 12-0 US BREAST [place] LIMITED Patient: LORA MARTINS Exam Date: 04/08/2022 : 1980 Gender:F Ordering : KP EPPERSON [facility] Admission #: [id number] Family : Order #: [id number] CLICK HERE TO VIEW EXAM RADIOLOGY REPORT PROCEDURE: MAMMOGRAM DIAGNOSTIC 3D BILATERAL CAD, 04/08/2022, 13:50 ULTRASOUND BREAST BILATERAL LIMITED, 04/08/2022, 14:42 COMPARISON: MAMMO POST BIOPSY LEFT, 09/22/2021. INDICATIONS: Abnormal findings on diagnostic imaging of breast Calculator Name NCI Breast Cancer Risk Assessment Tool 5 Year Breast Cancer Risk 1.20% Lifetime Breast Cancer Risk 10.40% Personal Breast Cancer No Personal Ovarian Cancer No Treatments None Family Cancers Grandmother-paterna l with breast cancer at age 55; Father with unknown cancer at age 59; Mother with pancreatic cancer at age 57. LOCATION: [facility] BREAST COMPOSITION: Heterogeneously dense,which may obscure small masses. FINDINGS: DIAGNOSTIC CATEGORY 2--BENIGN FINDING. NO CHANGE FROM COMPARISON. Scattered benign-appearing nodules are present. Scattered benign-appearing calcifications are present. Scattered benign-appearing lymph nodes are present. RIGHT BREAST: No new significant suspicious finding. Stable calcifications and nodules. Ultrasound demonstrates unchanged 4 mm cyst with debris 7 o'clock LEFT BREAST: No significant suspicious finding. Ultrasound demonstrates complex cyst 5 mm 12 o'clock and micro clip marker within a complex cyst at the 4 o'clock position RECOMMENDATIONS: ROUTINE MAMMOGRAM AND CLINICAL EVALUATION IN 12 MONTHS. PLEASE NOTE: A NORMAL MAMMOGRAM DOES NOT EXCLUDE THE POSSIBILITY OF BREAST CANCER. A CLINICALLY SUSPICIOUS PALPABLE LUMP SHOULD BE BIOPSIED. Dictated by: Mike Jean MD on 04/08/2022 at 15:20 Approved by: Mike Jean MD on 04/08/2022 at 15:21 Normal [facility] BUNon 03-23-2022 Urea nitrogen [Mass/Vol] 18.0 mg/dL Normal 7.0-18.0 [facility] Comment on above: Performed By: #### B UN, CREA #### [facility] [address] [place] [address] Dr. Jackie Bhardwaj CBC AUTO DIFFon 03-23-2022 BASO # 0.0 103/ul Normal 0.0-0.1 [facility] Comment on above: Performed By: #### P TT, PT #### [facility] [address] [place] [address] Dr. Jackie Bhardwaj Basophils/100 WBC (Bld) 0.2 % Normal 0.2-2.0 [facility] Comment on above: Performed By: #### P TT, PT #### [facility] [address] [place] [address] Dr. Jackie Bhardwaj EO # 0.1 103/ul Normal 0.0-0.7 [facility] Comment on above: Performed By: #### P TT, PT #### [facility] [address] [place] [address] Dr. Jackie Bhardwaj Eosinophils/100 WBC (Bld) 0.4 % Critically low 0.9-7.0 [facility] Comment on above: Performed By: #### P TT, PT #### [facility] [address] [place] [address] Dr. Jackie Bhardwaj Erythrocyte distribution width (RBC) [Ratio] 12.8 % Normal 11.0-15.0 [facility] Comment on above: Performed By: #### P TT, PT #### [facility] [address] [place] [address] Dr. Jackie Bhardwaj Hematocrit (Bld) [Volume fraction] 30.7 % Critically low 36.0-48.0 [facility] Comment on above: Performed By: #### P TT, PT #### [facility] [address] [address] [address] Jackie Bhardwaj Hemoglobin (Bld) [Mass/Vol] 10.3 g/dL Critically low 12.0-16.0 [facility] Comment on above: Performed By: #### P TT, PT #### [facility] [address] [address] [address] Jackie Bhardwaj IG # 0.04 10e3/ul Critically high 0.00-0.03 [facility] Comment on above: Performed By: #### P TT, PT #### [facility] [address] [address] [address] Jackie Bhardwaj IG % 0.3 % Normal 0.0-0.5 [facility] Comment on above: Performed By: #### P TT, PT #### [facility] [address] [place] [address] Dr. Jackie Bhardwaj LYMPH # 2.7 103/ul Normal 1.2-3.8 [facility] Comment on above: Performed By: #### P TT, PT #### [facility] [address] [address] [address] Jackie Bhardwaj Lymphocytes/100 WBC (Bld) 21.0 % Normal 20.5-60.0 [facility] Comment on above: Performed By: #### P TT, PT #### [facility] [address] [address] [address] Jackie Bhardwaj MANUAL DIFF REQ NO Normal [facility] Comment on above: Performed By: #### P TT, PT #### [facility] [address] [address] [address] Jackie Bhardwaj MCH (RBC) [Entitic mass] 30.7 pg Normal 26.7-34.0 [facility] Comment on above: Performed By: #### P TT, PT #### [facility] [address] [place] [address] Dr. Jackie Bhardwaj MCHC (RBC) [Mass/Vol] 33.6 g/dL Normal 29.9-35.2 [facility] Comment on above: Performed By: #### P TT, PT #### [facility] [address] [place] [address] Dr. Jackie Bhardwaj MCV (RBC) [Entitic vol] 91.6 fL Normal 81.0-99.0 [facility] Comment on above: Performed By: #### P TT, PT #### [facility] [address] [place] [address] Dr. Jackie Bhardwaj MONO # 0.8 103/ul Normal 0.3-0.8 [facility] Comment on above: Performed By: #### P TT, PT #### [facility] [address] [place] [address] Dr. Jackie Bhardwaj Monocytes/100 WBC (Bld) 6.2 % Normal 1.7-12.0 [facility] Comment on above: Performed By: #### P TT, PT #### [facility] [address] [place] [address] Dr. Jackie Bhardwaj NEUT # 9.2 103/ul Critically high 1.4-6.5 [facility] Comment on above: Performed By: #### P TT, PT #### [facility] [address] [place] [address] Dr. Jackie Bhardwaj Neutrophils/100 WBC (Bld) 71.9 % Normal 43.0-75.0 [facility] Comment on above: Performed By: #### P TT, PT #### [facility] [address] [place] [address] Dr. Jackie Bhardwaj Platelet mean volume (Bld) [Entitic vol] 11.2 fL Normal 9.5-13.5 [facility] Comment on above: Performed By: #### P TT, PT #### [facility] [address] [place] [address] Dr. Jackie Bhardwaj PLT 135 103/ul Critically low 150-450 [facility] Comment on above: Performed By: #### P TT, PT #### [facility] [address] [place] [address] Dr. Jackie Bhardwaj RBC 3.35 106/ul Critically low 4.20-5.40 [facility] Comment on above: Performed By: #### P TT, PT #### [facility] [address] [place] [address] Dr. Jackie Bhardwaj WBC 12.8 103/ul Critically high 4.0-11.0 [facility] Comment on above: Performed By: #### P TT, PT #### [facility] [address] [place] [address] Dr. Jackie Bhardwaj CREATININEon 03-23-2022 Creatinine [Mass/Vol] 0.72 mg/dL Normal 0.55-1.02 [facility] Comment on above: Performed By: #### B UN, CREA #### [facility] [address] [place] [address] Dr. Jackie Bhardwaj EGFR-AF GUATEMALAN >60 Normal >=60 [facility] Comment on above: Performed By: #### B UN, CREA #### [facility] [address] [place] [address] Dr. Jackie Bhardwaj EGFR-NON AF GUATEMALAN >60 Normal >=60 [facility] Comment on above: Performed By: #### B UN, CREA #### [facility] [address] [place] [address] Dr. Jackie Bhardwaj ANTIBODY ID PANELon 03-22-20 22 ANTIBODY ID PANEL Antibody ID Anti-D Blood Bank Notes testing performed at [facility] reference lab [place] [facility] Comment on above: Performed By: #### P TT, PT #### [facility] [address] [place] [address] Dr. Jackie Bhardwaj URon 03-22-2022 , QUAL Negative Normal NEGATIVE [facility] Comment on above: Performed By: #### P TT, PT #### [facility] [address] [place] [address] Dr. Jackie Bhardwaj [facility]09 SARS-CoV-2 (COVID-19) RNA JOHN+probe Ql (Unsp spec) Not detected Normal NOT DETECTED [facility] Comment on above: Result Comment: This test is not yet approved or cleared by the [place] FDA. When there are no FDA-approved or cleared tests available, and other criteria are met, FDA can make tests available under an emergency access mechanism called an Emergency Use Authorization (EUA). The EUA for this test is supported by the [place] of Health and Human Service's (HHS's) declaration that circumstances exist to justify the emergency use of in vitro diagnostics for the detection and/or diagnosis of the virus that causes COVID-19. This EUA will remain in effect (meaning this test can be used) for the duration of the COVID-19 declaration justifying emergency of IVDs, unless it is terminated or revoked by FDA (after which the test may no longer be used). When diagnostic testing is negative, the possibility of a false negative should be considered in the context of a patient's recent exposures and the presence of clinical signs and symptoms consistent with SARS-CoV-2. Performed By: #### C VDTB #### [facility] [address] [place] [address] Dr. Jackie Bhardwaj TYPE AND SCREENon 03-18-2022 TYPE AND SCREEN Negative Normal [facility] Comment on above: Performed By: #### P TT, PT #### [facility] [address] [place] [address] Dr. Jackie Bhardwaj LIVER PROFILEon 03-10-2022 Albumin [Mass/Vol] 4.1 g/dL Normal 3.4-5.0 [facility] Comment on above: Performed By: #### L IVER, BMP #### [facility] [address] [place] [address] Dr. Jackie Bhardwaj Albumin/Globulin [Mass ratio] 1.6 {ratio} Normal [facility] Comment on above: Performed By: #### L IVER, BMP #### [facility] [address] [place] [address] Dr. Jackie Bhardwaj ALP [Catalytic activity/Vol] 41 U/L Critically low 46-116 [facility] Comment on above: Performed By: #### L IVER, BMP #### [facility] [address] [place] [address] Dr. Jackie Bhardwaj ALT [Catalytic activity/Vol] 16 U/L Normal 14-59 [facility] Comment on above: Performed By: #### L IVER, BMP #### [facility] [address] [place] [address] Dr. Jackie Bhardwaj AST [Catalytic activity/Vol] 14 U/L Critically low 15-37 [facility] Comment on above: Performed By: #### L IVER, BMP #### [facility] [address] [place] [address] Dr. Jackie Bhardwaj BILI, CONJUGATED 0.1 mg/dL Normal 0.0-0.2 [facility] Comment on above: Performed By: #### L IVER, BMP #### [facility] [address] [place] [address] Dr. Jackie Bhardwaj Bilirubin [Mass/Vol] 0.3 mg/dL Normal 0.2-1.0 [facility] Comment on above: Performed By: #### L IVER, BMP #### [facility] [address] [place] [address] Dr. Jackie Bhardwaj Globulin (S) [Mass/Vol] 2.5 g/dL Normal [facility] Comment on above: Performed By: #### L IVER, BMP #### [facility] [address] [place] [address] Dr. Jackie Bhardwaj Protein [Mass/Vol] 6.6 g/dL Normal 6.4-8.2 [facility] Comment on above: Performed By: #### L IVER, BMP #### [facility] [address] [place] [address] Dr. Jackie Bhardwaj PROF CHEM 8 (BAS METB)on Anion gap [Moles/Vol] 11.6 mmol/L Normal [facility] Comment on above: Performed By: #### L IVER, BMP #### [facility] [address] [place] [address] Dr. Jackie Bhardwaj Calcium [Mass/Vol] 8.8 mg/dL Normal 8.5-10.1 [facility] Comment on above: Performed By: #### L IVER, BMP #### [facility] [address] [address] [address] Jackie Bhardwaj Chloride [Moles/Vol] 102 mmol/L Normal 98-107 [facility] Comment on above: Performed By: #### Robin MANSFIELD, BMP #### [facility] [address] [place] [address] Dr. Jackie Bhardwaj CO2 [Moles/Vol] 28.9 mmol/L Normal 21.0-32.0 [facility] [place] [facility] Comment on above: Performed By: #### Robin MANSFIELD, BMP #### [facility] [address] [place] [address] Dr. Jackie Bhardwaj Creatinine [Mass/Vol] 0.78 mg/dL Normal 0.55-1.02 [facility] Comment on above: Performed By: #### Robin MANSFIELD, BMP #### [facility] [address] [place] [address] Dr. Jackie Bhardwaj EGFR-AF GUATEMALAN >60 Normal >=60 [facility] Comment on above: Performed By: #### Robin MANSFIELD, BMP #### [facility] [address] [place] [address] Dr. Jackie Bhardwaj EGFR-NON AF GUATEMALAN >60 Normal >=60 [facility] Comment on above: Performed By: #### Robin MANSFIELD, BMP #### [facility] [address] [place] [address] Dr. Jackie Bhardwaj Glucose [Mass/Vol] 81 mg/dL Normal 74-106 [facility] Comment on above: Performed By: #### Robin MANSFIELD, BMP #### [facility] [address] [place] [address] Dr. Jackie Bhardwaj Potassium [Moles/Vol] 3.5 mmol/L Normal 3.5-5.1 [facility] Comment on above: Performed By: #### Robin MANSFIELD, BMP #### [facility] [address] [place] [address] Dr. Jackie Bhardwaj Sodium [Moles/Vol] 139 mmol/L Normal 136-145 [facility] Comment on above: Performed By: #### Robin MANSFIELD, BMP #### [facility] [address] [place] [address] Dr. Jackie Bhardwaj Urea nitrogen [Mass/Vol] 21.0 mg/dL Critically high 7.0-18.0 [facility] Comment on above: Performed By: #### L SHYLA, BMP #### [facility] [address] [place] [address] Dr. Jackie Bhardwaj Urea nitrogen/Creatinine [Mass ratio] 26.9 mg/mg Normal [facility] Comment on above: Performed By: #### L SHYLA, BMP #### [facility] [address] [place] [address] Dr. Jackie Bhardwaj PROTIMEon 03-10-2022 INR Coag (PPP) [Relative time] 0.98 {INR} Normal [facility] Comment on above: Performed By: #### P TT, PT #### [facility] [address] [place] [address] Dr. Jackie Bhardwaj INR GUIDELINES SEE BELOW Normal [facility] Comment on above: Result Comment: BILLY RED INR: 2.0 - 3.0 CONDITIONS NOT LISTED BELOW 2.5 - 3.5 FOR PROSTHETIC HEART VALVE REPLACEMENT 2.5 - 3.5 RECURRENT THROMBOSIS Performed By: #### P TT, PT #### [facility] [address] [place] [address] Dr. Jackie Bhardwaj PT Coag (PPP) [Time] 10.6 s Normal 9.0-11.6 [facility] Comment on above: Performed By: #### P TT, PT #### [facility] [address] [place] [address] Dr. Jackie Bhardwaj PTTon 03-10-2022 aPTT Coag (Bld) [Time] 26.3 s Normal 22.3-36.2 [facility] Comment on above: Performed By: #### P TT, PT #### [facility] [address] [place] [address] Dr. Jackie Bhardwaj CBC AUTO DIFFon 03-09-2022 BASO # 0.1 103/ul Normal 0.0-0.1 [facility] Comment on above: Performed By: #### P TT, PT #### [facility] [address] [place] [address] Dr. Jackie Bhardwaj Basophils/100 WBC (Bld) 0.6 % Normal 0.2-2.0 [facility] Comment on above: Performed By: #### P TT, PT #### [facility] [address] [place] [address] Dr. Jackie Bhardwaj EO # 0.2 103/ul Normal 0.0-0.7 [facility] Comment on above: Performed By: #### P TT, PT #### [facility] [address] [place] [address] Dr. Jackie Bhardwaj Eosinophils/100 WBC (Bld) 1.8 % Normal 0.9-7.0 [facility] Comment on above: Performed By: #### P TT, PT #### [facility] [address] [place] [address] Dr. Jackie Bhardwaj Erythrocyte distribution width (RBC) [Ratio] 12.7 % Normal 11.0-15.0 [facility] Comment on above: Performed By: #### P TT, PT #### [facility] [address] [place] [address] Dr. Jackie Bhardwaj Hematocrit (Bld) [Volume fraction] 39.1 % Normal 36.0-48.0 [facility] Comment on above: Performed By: #### P TT, PT #### [facility] [address] [place] [address] Dr. Jackie Bhardwaj Hemoglobin (Bld) [Mass/Vol] 12.8 g/dL Normal 12.0-16.0 [facility] Comment on above: Performed By: #### P TT, PT #### [facility] [address] [place] [address] Dr. Jackie Bhardwaj IG # 0.03 10e3/ul Normal 0.00-0.03 [facility] Comment on above: Performed By: #### P TT, PT #### [facility] [address] [place] [address] Dr. Jackie Bhardwaj IG % 0.3 % Normal 0.0-0.5 [facility] Comment on above: Performed By: #### P TT, PT #### [facility] [address] [place] [address] Dr. Jackie Bhardwaj LYMPH # 3.5 103/ul Normal 1.2-3.8 [facility] Comment on above: Performed By: #### P TT, PT #### [facility] [address] [place] [address] Dr. Jackie Bhardwaj Lymphocytes/100 WBC (Bld) 32.7 % Normal 20.5-60.0 [facility] Comment on above: Performed By: #### P TT, PT #### [facility] [address] [place] [address] Dr. Jackie Bhardwaj MANUAL DIFF REQ NO Normal [facility] Comment on above: Performed By: #### P TT, PT #### [facility] [address] [place] [address] Dr. Jackie Bhardwaj MCH (RBC) [Entitic mass] 30.7 pg Normal 26.7-34.0 [facility] Comment on above: Performed By: #### P TT, PT #### [facility] [address] [place] [address] Dr. Jackie Bhardwaj MCHC (RBC) [Mass/Vol] 32.7 g/dL Normal 29.9-35.2 [facility] Comment on above: Performed By: #### P TT, PT #### [facility] [address] [place] [address] Dr. Jackie Bhardwaj MCV (RBC) [Entitic vol] 93.8 fL Normal 81.0-99.0 [facility] Comment on above: Performed By: #### P TT, PT #### [facility] [address] [place] [address] Dr. Jackie Bhardwaj MONO # 0.7 103/ul Normal 0.3-0.8 [facility] Comment on above: Performed By: #### P TT, PT #### [facility] [address] [place] [address] Dr. Jackie Bhardwaj Monocytes/100 WBC (Bld) 6.3 % Normal 1.7-12.0 [facility] Comment on above: Performed By: #### P TT, PT #### [facility] [address] [address] [address] Jackie Bhardwaj NEUT # 6.2 103/ul Normal 1.4-6.5 [facility] Comment on above: Performed By: #### P TT, PT #### [facility] [address] [address] [address] Jackie Bhardwaj Neutrophils/100 WBC (Bld) 58.3 % Normal 43.0-75.0 [facility] Comment on above: Performed By: #### P TT, PT #### [facility] [address] [address] [address] Jackie Bhardwaj Platelet mean volume (Bld) [Entitic vol] 11.5 fL Normal 9.5-13.5 [facility] Comment on above: Performed By: #### P TT, PT #### [facility] [address] [place] [address] Dr. Jackie Bhardwaj PLT 167 103/ul Normal 150-450 [facility] Comment on above: Performed By: #### P TT, PT #### [facility] [address] [place] [address] Dr. Jackie Bhardwaj RBC 4.17 106/ul Critically low 4.20-5.40 [facility] Comment on above: Performed By: #### P TT, PT #### [facility] [address] [address] [address] Jackie Bhardwaj WBC 10.6 103/ul Normal 4.0-11.0 [facility] Comment on above: Performed By: #### P TT, PT #### [facility] [address] [address] [address] Jackie Bhardwaj IRONon 03-09-2022 Iron [Mass/Vol] 73.0 ug/dL Normal 50.0-170.0 [facility] Comment on above: Performed By: #### P TT, PT #### [facility] [address] [address] [address] Jackie Bhardwaj PREG HCG QUALon 02-01-2022 , QUAL Negative Normal NEGATIVE [facility] Comment on above: Performed By: #### P REG #### [facility] [address] [place], [place] [address] Dr. Jackie Bhardwaj , QUAL Negative Normal NEGATIVE [facility] Comment on above: Result Comment: Prev iously reported as: [id number] On 02/01/2022 06:45 By DM9 Performed By: #### P TT, PT #### [facility] [address] [id number] Jackie Bhardwaj Covid-19 PCR (CVDTB[facility])on 01-08 SARS-CoV-2 (COVID-19) RNA JOHN+probe Ql (Unsp spec) Not detected Normal NOT DETECTED [facility] Comment on above: Result Comment: This test is not yet approved or cleared by the [place] FDA. When there are no FDA-approved or cleared tests available, and other criteria are met, FDA can make tests available under an emergency access mechanism called an Emergency Use Authorization (EUA). The EUA for this test is supported by the [place] of Health and Human Service's (HHS's) declaration that circumstances exist to justify the emergency use of in vitro diagnostics for the detection and/or diagnosis of the virus that causes COVID-19. This EUA will remain in effect (meaning this test can be used) for the duration of the COVID-19 declaration justifying emergency of IVDs, unless it is terminated or revoked by FDA (after which the test may no longer be used). When diagnostic testing is negative, the possibility of a false negative should be considered in the context of a patient's recent exposures and the presence of clinical signs and symptoms consistent with SARS-CoV-2. Performed By: #### C VDTBH #### [facility] [address] [place], [place] [address] Dr. Jackie Bhardwaj Covid-19 PCR (CVDTBH)on 12-09 SARS-CoV-2 (COVID-19) RNA JOHN+probe Ql (Unsp spec) Not detected Normal NOT DETECTED [facility] Comment on above: Result Comment: This test is not yet approved or cleared by the [place] FDA. When there are no FDA-approved or cleared tests available, and other criteria are met, FDA can make tests available under an emergency access mechanism called an Emergency Use Authorization (EUA). The EUA for this test is supported by the [employer] of Health and Human Service's (HHS's) declaration that circumstances exist to justify the emergency use of in vitro diagnostics for the detection and/or diagnosis of the virus that causes COVID-19. This EUA will remain in effect (meaning this test can be used) for the duration of the COVID-19 declaration justifying emergency of IVDs, unless it is terminated or revoked by FDA (after which the test may no longer be used). When diagnostic testing is negative, the possibility of a false negative should be considered in the context of a patient's recent exposures and the presence of clinical signs and symptoms consistent with SARS-CoV-2. Performed By: #### P TT, PT #### [facility] [address] [place] [address] Dr. Jackie Bhardwaj CBC AUTO DIFFon 12-29-2021 BASO # 0.1 103/ul Normal 0.0-0.1 [facility] Comment on above: Performed By: #### C BC #### [facility] [address] [place] [address] Dr. Jackie Bhardwaj Basophils/100 WBC (Bld) 0.4 % Normal 0.2-2.0 [facility] Comment on above: Performed By: #### C BC #### [facility] [address] [place] [address] Dr. Jackie Bhardwaj EO # 0.2 103/ul Normal 0.0-0.7 [facility] Comment on above: Performed By: #### C BC #### [facility] [address] [place] [address] Dr. Jackie Bhardwaj Eosinophils/100 WBC (Bld) 1.6 % Normal 0.9-7.0 [facility] Comment on above: Performed By: #### C BC #### [facility] [address] [place] [address] Dr. Jackie Bahrdwaj Erythrocyte distribution width (RBC) [Ratio] 12.9 % Normal 11.0-15.0 [facility] Comment on above: Performed By: #### C BC #### [facility] [address] [place] [address] Dr. Jackie Bhardwaj Hematocrit (Bld) [Volume fraction] 38.5 % Normal 36.0-48.0 [facility] Comment on above: Performed By: #### C BC #### [facility] [address] [place] [address] Dr. Jackie Bhardwaj Hemoglobin (Bld) [Mass/Vol] 12.8 g/dL Normal 12.0-16.0 [facility] Comment on above: Performed By: #### C BC #### [facility] [address] [place] [address] Dr. Jackie Bhardwaj IG # 0.03 10e3/ul Normal 0.00-0.03 [facility] Comment on above: Performed By: #### C BC #### [facility] [address] [place] [address] Dr. Jackie Bhardwaj IG % 0.3 % Normal 0.0-0.5 [facility] Comment on above: Performed By: #### C BC #### [facility] [address] [place] [address] Dr. Jackie Bhardwaj LYMPH # 3.9 103/ul Critically high 1.2-3.8 [facility] Comment on above: Performed By: #### C BC #### [facility] [address] [place] [address] Dr. Jackie Bhardwaj Lymphocytes/100 WBC (Bld) 33.9 % Normal 20.5-60.0 [facility] Comment on above: Performed By: #### C BC #### [facility] [address] [place] [address] Dr. Jackie Bhardwaj MANUAL DIFF REQ NO Normal [facility] Comment on above: Performed By: #### C BC #### [facility] [address] [place] [address] Dr. Jackie Bhardwaj MCH (RBC) [Entitic mass] 31.4 pg Normal 26.7-34.0 [facility] Comment on above: Performed By: #### C BC #### [facility] [address] [address] [address] Jackie Bhardwaj MCHC (RBC) [Mass/Vol] 33.2 g/dL Normal 29.9-35.2 [facility] Comment on above: Performed By: #### C BC #### [facility] [address] [place] [address] Dr. Jackie Bhardwaj MCV (RBC) [Entitic vol] 94.4 fL Normal 81.0-99.0 [facility] Comment on above: Performed By: #### C BC #### [facility] [address] [place] [address] Dr. Jackie Bhardwaj MONO # 0.7 103/ul Normal 0.3-0.8 [facility] Comment on above: Performed By: #### C BC #### [facility] [address] [place] [address] Dr. Jackie Bhardwaj Monocytes/100 WBC (Bld) 5.8 % Normal 1.7-12.0 [facility] Comment on above: Performed By: #### C BC #### [facility] [address] [place] [address] Dr. Jackie Bhardwaj NEUT # 6.6 103/ul Critically high 1.4-6.5 [facility] Comment on above: Performed By: #### C BC #### [facility] [address] [place] [address] Dr. Jackie Bhardwaj Neutrophils/100 WBC (Bld) 58.0 % Normal 43.0-75.0 [facility] Comment on above: Performed By: #### C BC #### [facility] [address] [place] [address] Dr. Jackie Bhardwaj Platelet mean volume (Bld) [Entitic vol] 11.4 fL Normal 9.5-13.5 [facility] Comment on above: Performed By: #### C BC #### [facility] [address] [place] [address] Dr. Jackie Bhardwaj PLT 168 103/ul Normal 150-450 [facility] Comment on above: Performed By: #### C BC #### [facility] [address] [place] [address] Dr. Jackie Bhardwaj RBC 4.08 106/ul Critically low 4.20-5.40 [facility] Comment on above: Performed By: #### C BC #### [facility] [address] [address] [address] Jackie Bhardwaj WBC 11.4 103/ul Critically high 4.0-11.0 [facility] Comment on above: Performed By: #### C BC #### [facility] [address] [address] [address] Jackie Bhardwaj IRONon 12-29-2021 Iron [Mass/Vol] 41.0 ug/dL Critically low 50.0-170.0 [facility] Comment on above: Performed By: #### P TT, PT #### [facility] [address] [place] [address] Dr. Jackie Bhardwaj US VAC ASST BX BRST LT W CLI Jaya 10-02-2021 US VAC ASST BX BRST LT W CLIP Begin Addendum #1 COLLECTED DATE/TIME: 09/22/2021 09:43 EDT Final Diagnosis Report for [facility] [place] ULTRASOUND GUIDED CORE BIOPSY, LEFT BREAST LESION 4 O'CLOCK: -BENIGN BREAST CYST WITH APOCRINE METAPLASIA. 09/24/2021 faxed to Cyndi Epperson CNP. Verified with Gemma that report was present in office. Original Report PROCEDURE: ULTRASOUND BIOPSY VACCUUM ASSISTED LEFT WITH CLIP COMPARISON: US BREAST VALENTINA LIMITED, 09/17/2021. INDICATIONS: Abnormal findings on diagnostic imaging of breast DESCRIPTION: After obtaining informed consent, a vacuum assisted ultrasound-guided biopsy was performed in the usual sterile manner. The location of the biopsy was then marked as indicated below. FINDINGS: RECOMMENDATIONS: SPECIMEN#, LOCATION: 3 core samples; 4 o'clock left breast complex cyst BIOPSY NEEDLE: 13 gauge Elite vacuum core biopsy needle. MARKER(S) PLACED: A single metallic marker was placed in the appropriate targeted location. MEDICATION: Buffered 1% lidocaine with epinephrine administered locally. COMPLICATIONS: None. PATHOLOGY LAB: Pending. CONCLUSION: 1. Uneventful ultrasound-guided breast biopsy. 2. Pathology results are pending. An addendum to this report will be provided after pathology results are available. 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 INDICATIONS: Mammography abnormal BREAST COMPOSITION: FINDINGS: BIOPSY MARKER: A metallic marker has been placed in the targeted location within the lower-outer quadrant of the left breast. BREAST FINDINGS: Expected post biopsy findings. RECOMMENDATIONS: Dictated by: Burak Nielsen M.D. on 09/22/2021 at 10:13 Approved by: Burak Nielsen M.D. on 09/22/2021 at 10:14 Normal [facility] Complete Blood Count Auto Di ffon 03-03-2021 Basophils (Bld) [#/Vol] 0.1 10*3/uL Normal 0.0-0.2 [facility] Comment on above: Result Comment: PERF ORMED BY: [place] [address] PATHOLOGIST NUT SIFTER MARANDA HOUSTON M.D. Performed By: #### C MP, CBC #### [facility] [address] [place] [address] [place] Basophils/100 WBC (Bld) 0.4 % Normal . [facility] Comment on above: Performed By: #### C MP, CBC #### [facility] [address] [place] [address] Eosinophils (Bld) [#/Vol] 0.1 10*3/uL Normal 0.0-0.45 [facility] Comment on above: Performed By: #### C MP, CBC #### [facility] [address] [place] [address] Eosinophils/100 WBC (Bld) 1.1 % Normal . [facility] Comment on above: Performed By: #### C MP, CBC #### [address] Erythrocyte distribution width (RBC) [Ratio] 13.4 % Normal 11.9-15.3 [facility] Comment on above: Performed By: #### C MP, CBC #### [address] Hematocrit (Bld) [Volume fraction] 40.0 % Normal 34.0-46.4 [facility] Comment on above: Performed By: #### C MP, CBC #### [address] Hemoglobin (Bld) [Mass/Vol] 13.3 g/dL Normal 11.8-15.4 [facility] Comment on above: Performed By: #### C MP, CBC #### [address] Lymphocytes (Bld) [#/Vol] 2.4 10*3/uL Normal 1.00-4.8 [facility] Comment on above: Performed By: #### C MP, CBC #### [address] Lymphocytes/100 WBC (Bld) 20.9 % Normal . [facility] Comment on above: Performed By: #### C MP, CBC #### [address] MCH (RBC) [Entitic mass] 30.5 pg Normal 24.7-34.3 [facility] Comment on above: Performed By: #### C MP, CBC #### [address] MCV (RBC) [Entitic vol] 92.0 fL Normal 80-100 [facility] Comment on above: Performed By: #### C MP, CBC #### [address] Mean Corpuscular HGB Conc 33.2 g/dL Normal 32.0-35.0 [facility] Comment on above: Performed By: #### C MP, CBC #### [address] [place] [address] [place] Monocytes (Bld) [#/Vol] 0.7 10*3/uL Normal 0.0-0.8 [facility] Comment on above: Performed By: #### C MP, CBC #### [facility] [address] [place] [address] [place] Monocytes/100 WBC (Bld) 6.5 % Normal . [facility] Comment on above: Performed By: #### C MP, CBC #### [facility] [address] [place] [address] [place] Neutrophils (Bld) [#/Vol] 8.1 10*3/uL High 1.8-7.7 [facility] Comment on above: Performed By: #### C MP, CBC #### [place] [address] [place] Neutrophils/100 WBC (Bld) 71.1 % Normal . [facility] Comment on above: Performed By: #### C MP, CBC #### [facility] [address] [place] [address] [place] Nucleated RBC/100 WBC (Bld) [Ratio] 0.0 % Normal 0-0.5 [facility] Comment on above: Performed By: #### C MP, CBC #### [place] [address] [place] Platelet mean volume (Bld) [Entitic vol] 9.6 fL Normal 6.3-10.7 [facility] Comment on above: Performed By: #### C MP, CBC #### [facility] [address] [place] [address] [place] Platelets (Bld) [#/Vol] 155 10*3/uL Normal 150-450 [facility] Comment on above: Performed By: #### C MP, CBC #### [facility] [address] [place] [address] [place] RBC (Bld) [#/Vol] 4.35 10*6/uL Normal 3.60-5.00 [facility] Comment on above: Performed By: #### C MP, CBC #### [address] WBC (Bld) [#/Vol] 11.3 10*3/uL High 4.5-11.0 [facility] Comment on above: Performed By: #### C MP, CBC #### [address] Comprehensive Metabolic Pane zelda 03-03-2021 Albumin [Mass/Vol] 4.0 g/dL Normal 3.2-5.5 [facility] Comment on above: Performed By: #### C MP, CBC #### [address] Albumin/Globulin [Mass ratio] 1.8 {ratio} Normal [facility] Comment on above: Performed By: #### C MP, CBC #### [address] ALP [Catalytic activity/Vol] 36 U/L Normal 32-92 [facility] Comment on above: Result Comment: PERF ORMED BY: [place] [address] PATHOLOGIST NUT SIFTER MARANDA HOUSTON M.D. Performed By: #### C MP, CBC #### [address] ALT [Catalytic activity/Vol] 12 U/L Normal 10-60 [facility] Comment on above: Performed By: #### C MP, CBC #### [address] AST [Catalytic activity/Vol] 15 U/L Normal 10-42 [facility] Comment on above: Performed By: #### C MP, CBC #### [address] Bilirubin [Mass/Vol] 0.5 mg/dL Normal 0.3-1.2 [facility] Comment on above: Performed By: #### C MP, CBC #### [address] Calcium [Mass/Vol] 9.4 mg/dL Normal 8.2-10.2 [facility] Comment on above: Performed By: #### C MP, CBC #### [facility] [address] Chloride [Moles/Vol] 104 mmol/L Normal 95-114 [facility] Comment on above: Performed By: #### C MP, CBC #### [facility] [address] CO2 [Moles/Vol] 24.5 mmol/L Normal 22.0-30.0 [facility] Comment on above: Performed By: #### C MP, CBC #### [address] Creatinine [Mass/Vol] 0.75 mg/dL Normal 0.44-1.03 [facility] Comment on above: Performed By: #### C MP, CBC #### [address] Estimated GFR ( Keri > 60 [facility] Comment on above: Result Comment: GFR estimated reference range: According to KDOQI guidelines, <60 ml/min/1.73m2 is sufficient to diagnose a patient with chronic kidney disease. Performed By: #### C MP, CBC #### [address] Estimated GFR (Non- Am > 60 [facility] Comment on above: Performed By: #### C MP, CBC #### [place] [address] [place] Globulin (S) [Mass/Vol] 2.2 g/dL Normal [facility] Comment on above: Performed By: #### C MP, CBC #### [address] Glucose [Mass/Vol] 96 mg/dL Normal 70-100 [facility] Comment on above: Result Comment: [place] Glucose Reference Range is dependent on time and content of last meal. Glucose of more than 200 mg/dL in a nonstressed, ambulatory subject supports the diagnosis of Diabetes Mellitus. ADA recommended reference range Performed By: #### C MP, CBC #### [facility] [address] [place] [address] [place] Potassium [Moles/Vol] 4.1 mmol/L Normal 3.5-5.1 [facility] Comment on above: Performed By: #### C MP, CBC #### [facility] [address] [place] [address] [place] Protein [Mass/Vol] 6.2 g/dL Normal 6.1-7.9 [facility] Comment on above: Performed By: #### C MP, CBC #### [facility] [address] [place] [address] [facility] Sodium [Moles/Vol] 139 mmol/L Normal 136-146 [facility] Comment on above: Performed By: #### C MP, CBC #### [facility] [address] [place] [address] [place] Urea nitrogen [Mass/Vol] 16 mg/dL Normal 9-23 [facility] Comment on above: Performed By: #### C MP, CBC #### [facility] [address] [id number] [place] Vital Signs Date Time Vital Sign Value Performing Clinician Sarthak umana 12-19-2023 23:00-0400 Diastolic blood pressure 91 mm[Hg] Reza Bedoya [facility] 12-19-2023 23:00-0400 Heart rate 63 /min Reza Bedoya [facility] 12-19-2023 23:00-0400 Hourly Rounding Reza Bedoya [facility] 12-19-2023 23:00-0400 Mean blood pressure 107 mm[Hg] Reza Bedoya [facility] 12-19-2023 23:00-0400 Promise to Return Reza Bedoya [facility] 12-19-2023 23:00-0400 SaO2% (BldA) [Mass fraction] 100 % Reza Bedoya [facility] 12-19-2023 23:00-0400 Systolic blood pressure 140 mm[Hg] Reza Aureliano [facility] 12-19-2023 22:00-0400 Diastolic blood pressure 87 mm[Hg] Reza Aureliano [facility] 12-19-2023 22:00-0400 Heart rate 64 /min Reza Aureliano [facility] 12-19-2023 22:00-0400 Hourly Rounding Reza Aureliano [facility] 12-19-2023 22:00-0400 Mean blood pressure 100 mm[Hg] Reza Aureliano [facility] 12-19-2023 22:00-0400 Promise to Return Reza Aureliano [facility] 12-19-2023 22:00-0400 Systolic blood pressure 127 mm[Hg] Reza Aureliano [facility] 12-19-2023 21:00-0400 Diastolic blood pressure 86 mm[Hg] Reza Aureliano [facility] 12-19-2023 21:00-0400 Heart rate 58 /min Reza Aureliano [facility] 12-19-2023 21:00-0400 Hourly Rounding Reza Aureliano [facility] 12-19-2023 21:00-0400 Mean blood pressure 104 mm[Hg] Reza Aureliano [facility] 12-19-2023 21:00-0400 Promise to Return Reza Aureliano [facility] 12-19-2023 21:00-0400 SaO2% (BldA) [Mass fraction] 99 % Reza Aureliano [facility] 12-19-2023 16:05-0400 Body temperature 98.24 [degF] Reza Bedoya [facility] 12-19-2023 16:05-0400 Heart rate 84 /min Reza Bedoya [facility] 12-19-2023 16:05-0400 Respiratory rate 18 /min Reza Bedoya [facility] Encounters Encounter Date Encounter Type Care Provider Facility Start: 01-19-2024 ambulatory Booker Shelley Facility:[facility] Start: 12-26-2023 End: 12-26-2023 ambulatory SAMUEL MCDERMOTT Not Available Start: 12-22-2023 End: 12-22-2023 ambulatory CYNDI EPPERSON Not Available Start: 12-20-2023 [facility]ulatory [facility] Start: 12-19-2023 End: 12-19-2023 Emergency department patient visit Reza Bedoya [facility] Start: 12-19-2023 ambulatory Reza Bedoya Facility:[facility] Start: 09-17-2022 End: 09-17-[address] WILDER OWENS . Facility:[facility] Start: 04-08-2022 End: 04-09-[address] MIKE JEAN Facility:[facility] Start: 03-22-2022 Encounter for preprocedural laboratory examination DR WILDER OWENS . [facility] Start: 03-22-2022 End: 03-23-2022 Evaluation and management of inpatient DR WILDER OWENS . Facility:[facility] Start: 03-18-2022 End: 03-19-[address] WILDER OWENS . Facility:[facility] Start: 03-18-2022 End: 03-19-2022 Encounter for preprocedural laboratory examination DR WILDER OWENS . Facility:[facility] Start: 03-10-2022 End: 03-11-[address] WILDER OWENS . Facility:[facility] Start: 03-09-2022 End: 03-10-2022 ambulatory KP EPPERSON Facility:[facility] Start: 02-01-2022 End: 02-01-[address] WILDER OWENS . Facility:[facility] Start: 01-28-2022 ambulatory KP EPPERSON Facil ity:[facility] Start: 01-27-2022 End: 01-28-[address] WILDER OWENS . Facility:[facility] Start: 01-05-2022 End: 01-05-2022 ambulatory KP EPPERSON Facility:[facility] Start: 12-29-2021 End: 12-30-2021 ambulatory KP EPPERSON Facility:[facility] Start: 11-02-2021 ambulatory KP EPPERSON Facil ity:[facility] Start: 10-29-2021 ambulatory KP EPPERSON Facil ity:[facility] Start: 09-22-2021 End: 09-22-2021 ambulatory KP EPPERSON Facility:[facility] Procedures Date Procedure Procedure Detail Performing Clinician Start: 03-22-2022 Resection of Bilater al Fallopian Tubes, Via Natural or Artificial Opening KP EPPERSON Start: 03-22-2022 Resection of Uterus, Via Natural or Artificial Opening KP EPPERSON Payers Date Payer Category Payer Unknown [id number] 06.24.84 [id number] 1980 Unknown [id number] .. [id number] 1980 Unknown [id number] ..[id number] 0.1.140511.3.579.259 1980 Unknown [id number] ..[id number] 0.1.468592.3.579.259 1980 Unknown [id number] ..[id number] 0.1.723816.3.579.259 1980 Unknown [id number] ..[id number] 0.1.591913.3.579.2.59 1980 Unknown [id number] ..[id number] 0.1.105832.3.579.2.593 1978 Unknown [id number] 2.16.84 0.1.194817.3.579.2.593 1978 Unknown [id number] 2.16.84 0.1.106030.3.579.2.593 1978 Unknown [id number] 2.16.84 0.1.062460.3.579.2.593 1978 Unknown [id number] 2.16.84 0.1.536388.3.579.2.593 1978 Unknown [id number] 2.16.84 0.1.159788.3.579.2.593 1978 Unknown [id number] 2.16.84 0.1.210132.3.579.2.593 1978 Unknown [id number] 2.16.84 0.1.842690.3.579.2.593 1978 Unknown [id number] 2.16.84 0.1.677122.3.579.2.593 1978 Unknown [id number] 2.16.8 40.1.363128.3.579.2.72 1980 Unknown [id number] 2.16.8 40.1.243699.3.579.2.727 1980 Unknown [id number] 2.16.8 40.1.153165.3.579.2.727 1978 Unknown [id number] 2.16.84 0.1.308922.3.579.2.1259 1978 Unknown [id number] 2.16.84 0.1.598265.3.579.2.1259 1978 Unknown [id number] 2.16.8 40.1.021727.3.579.2.727 1978 Unknown [id number] 2.16.8 40.1.300928.3.579.2.727 1978 Unknown [id number] 2.16.8 40.1.058738.3.579.2.727 1959 Unknown [id number] 1961 Unknown [id number] Social History Date Type Detail Facility Tobacco smoking status No Smoking Status Entered [facility] Sex Assigned At Female [facility] Functional Status Date Assessment Result Facility 12-19-2023 Functional Status N/A [facility] Clinical Note 12-20-2023 Note Date & Type Note Facility 12-20-2023 Note Progress Note-Nurse Patient called requesting Zofran after yesterdays visit. Sent to pharmacy per [facility] Discharge instructions 12-20-2023 Note Date & Type Note Facility 12-20-2023 Hospital Discharg e instructions Patient Education 12/19/2023 23:16:40 Hepatomegaly, Iwlx-bn-Vpoe Hepatomegaly Hepatomegaly is when the liver is larger than normal. Some health problems can cause the liver to get bigger. Some people may have a liver that is larger than normal, but they do not know it. What are the causes? Cirrhosis. This is a long-term (chronic) liver problem. It is caused by: ?Drinking too much alcohol. ?Certain diseases. ?An infection. ?Some medicines. Hepatitis. This is an infection of the liver. Having extra fat in your liver (fatty liver disease). Buildup of minerals in the liver. This can happen if you have Beck disease. Cancer. Heart or blood vessel disease. These can cause blood to back up into the liver. In some cases, the cause is not known. What increases the risk? Drinking too much alcohol. Having diabetes. Being very overweight (obese). Being exposed to hepatitis B or hepatitis C. What are the signs or symptoms? Belly (abdominal) pain on your right side. Tiredness (fatigue). Not wanting to eat food. Feeling like you may vomit (nauseous). Vomiting. Your skin and the whites of your eyes turning yellow (jaundice). How is this treated? Treatment for this condition depends on the cause. Follow these instructions at home: What you need to do at home depends on what is causing the condition. You may be asked to do the following: Medicines Take zbhs-hwy-ujfiwdj and prescription medicines only as told by your doctor. Do not take any new medicine unless your doctor says it is okay. ?This includes vitamins, herbs, supplements, and aotf-hdq-qcbhpte medicines. Some of these can hurt your liver. General instructions Stay at a healthy weight. Follow a healthy diet. Eat a lot of these foods: ?Fruits. ?Vegetables. ?Whole grains. Do not drink alcohol. Do not smoke or use any products that contain nicotine or tobacco. If you need help quitting, ask your doctor. Keep all follow-up visits. Contact a doctor if: Your belly pain gets worse. You keep vomiting. You have new symptoms. Your symptoms get worse. Get help right away if: You vomit bright red blood, or your vomit looks like coffee grounds. You have chest pain. You have trouble breathing. These symptoms may be an emergency. Get help right away. Call 911. Do not wait to see if the symptoms will go away. Do not drive yourself to the hospital. Summary Hepatomegaly is when the liver is larger than normal. This condition can be caused by a number of health problems. Symptoms include belly pain on your right side, being tired, not wanting to eat, or the skin and the whites of the eyes turning yellow. Follow what you are told about how to care for yourself at home. Get help right away if you vomit blood, have chest pain, or have trouble breathing. This information is not intended to replace advice given to you by your health care provider. Make sure you discuss any questions you have with your health care provider. Document Revised: 03/24/2022 Document Reviewed: 03/24/2022 [employer] Patient Education 2022 [employer]. 12/19/2023 23:16:40 Abdominal Pain, Adult Abdominal Pain, Adult Pain in the abdomen (abdominal pain) can be caused by many things. Often, abdominal pain is not serious and it gets better with no treatment or by being treated at home. However, sometimes abdominal pain is serious. Your health care provider will ask questions about your medical history and do a physical exam to try to determine the cause of your abdominal pain. Follow these instructions at home: Medicines Take hjzg-zjg-zelvcrw and prescription medicines only as told by your health care provider. Do not take a laxative unless told by your health care provider. General instructions Watch your condition for any changes. Drink enough fluid to keep your urine pale yellow. Keep all follow-up visits as told by your health care provider. This is important. Contact a health care provider if: Your abdominal pain changes or gets worse. You are not hungry or you lose weight without trying. You are constipated or have diarrhea for more than 2 3 days. You have pain when you urinate or have a bowel movement. Your abdominal pain wakes you up at night. Your pain gets worse with meals, after eating, or with certain foods. You are vomiting and cannot keep anything down. You have a fever. You have blood in your urine. Get help right away if: Your pain does not go away as soon as your health care provider told you to expect. You cannot stop vomiting. Your pain is only in areas of the abdomen, such as the right side or the left lower portion of the abdomen. Pain on the right side could be caused by appendicitis. You have bloody or black stools, or stools that look like tar. You have severe pain, cramping, or bloating in your abdomen. You have signs of dehydration, such as: ?Dark urine, very little urine, or no urine. ?Cracked lips. ?Dry mouth. ?Sunken eyes. ?Sleepiness. ?Weakness. You have trouble breathing or chest pain. Summary Often, abdominal pain is not serious and it gets better with no treatment or by being treated at home. However, sometimes abdominal pain is serious. Watch your condition for any changes. Take rgrx-rcj-kjjurog and prescription medicines only as told by your health care provider. Contact a health care provider if your abdominal pain changes or gets worse. Get help right away if you have severe pain, cramping, or bloating in your abdomen. This information is not intended to replace advice given to you by your health care provider. Make sure you discuss any questions you have with your health care provider. Document Revised: 06/13/2020 Document Reviewed: 09/03/2019 [employer] Patient Education 2022 [employer]. Follow Up Care 12/19/2023 16:03:37 With:Booker Shelley Address: [address], [address] [phone] [phone] Business (1) When:12/22/2023 With:CYNDI EPPERSON Address: [address] [place] [address] [phone] Business (1) When:Within 3 Day(s) [facility] Clinical Note 12-19-2023 Note Date & Type Note Facility 12-19-2023 Note ED Patient Education Note Gastroenterology Hepatomegaly Hepatomegaly is when the liver is larger than normal. Some health problems can cause the liver to get bigger. Some people may have a liver that is larger than normal, but they do not know it. What are the causes? ? Cirrhosis. This is a long-term (chronic) liver problem. It is caused by: ? Drinking too much alcohol. ? Certain diseases. ? An infection. ? Some medicines. ? Hepatitis. This is an infection of the liver. ? Having extra fat in your liver (fatty liver disease). ? Buildup of minerals in the liver. This can happen if you have Beck disease. ? Cancer. ? Heart or blood vessel disease. These can cause blood to back up into the liver. In some cases, the cause is not known. What increases the risk? ? Drinking too much alcohol. ? Having diabetes. ? Being very overweight (obese). ? Being exposed to hepatitis B or hepatitis C. What are the signs or symptoms? ? Belly (abdominal) pain on your right side. ? Tiredness (fatigue). ? Not wanting to eat food. ? Feeling like you may vomit (nauseous). ? Vomiting. ? Your skin and the whites of your eyes turning yellow (jaundice). How is this treated? Treatment for this condition depends on the cause. Follow these instructions at home: What you need to do at home depends on what is causing the condition. You may be asked to do the following: Medicines ? Take uqup-egz-imwwqgy and prescription medicines only as told by your doctor. ? Do not take any new medicine unless your doctor says it is okay. ? This includes vitamins, herbs, supplements, and yukc-yhw-hlcyjfg medicines. Some of these can hurt your liver. General instructions ? Stay at a healthy weight. ? Follow a healthy diet. Eat a lot of these foods: ? Fruits. ? Vegetables. ? Whole grains. ? Do not drink alcohol. ? Do not smoke or use any products that contain nicotine or tobacco. If you need help quitting, ask your doctor. ? Keep all follow-up visits. Contact a doctor if: ? Your belly pain gets worse. ? You keep vomiting. ? You have new symptoms. ? Your symptoms get worse. Get help right away if: ? You vomit bright red blood, or your vomit looks like coffee grounds. ? You have chest pain. ? You have trouble breathing. These symptoms may be an emergency. Get help right away. Call 911. ? Do not wait to see if the symptoms will go away. ? Do not drive yourself to the hospital. Summary ? Hepatomegaly is when the liver is larger than normal. ? This condition can be caused by a number of health problems. ? Symptoms include belly pain on your right side, being tired, not wanting to eat, or the skin and the whites of the eyes turning yellow. ? Follow what you are told about how to care for yourself at home. ? Get help right away if you vomit blood, have chest pain, or have trouble breathing. This information is not intended to replace advice given to you by your health care provider. Make sure you discuss any questions you have with your health care provider. Document Revised: 03/24/2022 Document Reviewed: 03/24/2022 [employer] Patient Education ? 2022 [employer] Abdominal Pain, Adult Pain in the abdomen (abdominal pain) can be caused by many things. Often, abdominal pain is not serious and it gets better with no treatment or by being treated at home. However, sometimes abdominal pain is serious. Your health care provider will ask questions about your medical history and do a physical exam to try to determine the cause of your abdominal pain. Follow these instructions at home: Medicines ? Take [id number] and prescription medicines only as told by your health care provider. ? Do not take a laxative unless told by your health care provider. General instructions ? Watch your condition for any changes. ? Drink enough fluid to keep your urine pale yellow. ? Keep all follow-up visits as told by your health care provider. This is important. Contact a health care provider if: ? Your abdominal pain changes or gets worse. ? You are not hungry or you lose weight without trying. ? You are constipated or have diarrhea for more than 2?3 days. ? You have pain when you urinate or have a bowel movement. ? Your abdominal pain wakes you up at night. ? Your pain gets worse with meals, after eating, or with certain foods. ? You are vomiting and cannot keep anything down. ? You have a fever. ? You have blood in your urine. Get help right away if: ? Your pain does not go away as soon as your health care provider told you to expect. ? You cannot stop vomiting. ? Your pain is only in areas of the abdomen, such as the right side or the left lower portion of the abdomen. Pain on the right side could be caused by appendicitis. ? You have bloody or black stools, or stools that look like tar. ? You (more content not included)... [facility] Evaluation + Plan note Note Date & Type Note Facility Evaluation + Plan note No data available for this section [facility] Progress note Note Date & Type Note Facility Progress note No data available for this section [facility] Summary Purpose Family History No Family History Records FoundNo Family History Records Found No data available for this section No Family History Records FoundNo Family History Records FoundNo Family History Records FoundNo Family History Records FoundNo Family History Records FoundNo Family History Records FoundNo Family History Records FoundNo Family History Records FoundNo Family History Records FoundNo Family History Records Found Advance Directives No Advanced Directives Records FoundNo Advanced Directives Records FoundNo Advanced Directives Records FoundNo Advanced Directives Records FoundNo Advanced Directives Records FoundNo Advanced Directives Records FoundNo Advanced Directives Records FoundNo Advanced Directives Records FoundNo Advanced Directives Records FoundNo Advanced Directives Records FoundNo Advanced Directives Records FoundNo Advanced Directives Records Found Additional Source Comments INFORMATION SOURCE (unrecogn ized section and content) DATE CREATED AUTHOR 06/02/2021 [facility] DATE CREATED AUTHOR AUTHOR'S ORGANIZ ATION 09/20/2022 [facility] DATE CREATED AUTHOR AUTHOR'S ORGANIZ ATION 12/20/2023 [facility] DATE CREATED AUTHOR AUTHOR'S ORGANIZ ATION 12/21/2023 [facility] DATE CREATED AUTHOR AUTHOR'S ORGANIZ ATION 12/26/2023 [facility] DATE CREATED AUTHOR AUTHOR'S ANEUDY KIRBY 01/01/2024 [facility] Patient Care team informtimothyo n (unrecognized section and content) Personnel Name: RADHA KP CYNDI J Address: Address: [address] [place] [address] FOR RECORDS PERTAINING TO PATIENTS WHO ARE OR HAVE BEEN ENROLLED IN A CHEMICAL DEPENDENCY/SUBSTANCEABUSE PROGRAM, SOME INFORMATION MAY BE OMITTED. This clinical summary was aggregated from multiple sources. Caution should be exercised in using it in the provision of clinical care. This summary normalizes information from multiple sources, and as a consequence, information in this document may materially change the coding, format and clinical context of patient data. In addition, data may be omitted in some cases. CLINICAL DECISIONS SHOULD BE BASED ON THE PRIMARY CLINICAL RECORDS. [facility] [employer] provides no warranty or guarantee of the accuracy or completeness of information in this document.
== END 2024-01-02 14:35 | disposition home or self-care (01) ==
LOC: PST 14:34
PROVIDERS: PCP Nurse Practitioner; Visit Provider Surgery
DX: Z01.818 Encounter for other preprocedural examination (principal); Z12.11 Encounter for screening for malignant neoplasm of colon

== ENCOUNTER 2024-01-05 06:12 | Outpatient (OUT) | payer OTHER, SELFPAY ==
--- OUTSIDE RECORDS SUMMARY | 2024-01-05 06:14 | XMS_ITS ---
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 Sent to pharmacy per [facility] ED PATIENT EDUCATION NOTE Observed: 12/07 11:16 PM Status: F Source: [facility] ED Patient Education Note Gastroenterology Hepatomegaly Hepatomegaly [...] liver. This can happen if you have Bcek disease. ? Cancer. ? Heart or blood [...] to do the following: Medicines ? Take pexy-kti-djzqeyx and prescription medicines only as told by your doctor. ? Do not take any new medicine unless your doctor says it is okay. ? This includes vitamins, herbs, supplements, and jtdl-kmz-wuvfvbo medicines. Some of these can hurt your [...] provider. Document Revised: 03/24/2022 Document Reviewed: 03/24/2022 [employer] Patient Education ? 2022 [employer].Abdominal Pain, Adult Pain in the abdomen (abdominal [...] these instructions at home: Medicines ? Take gnrm-bmm-sylvwbg and prescription medicines only as told by [...] stools that look like tar. ? You have severe pain, cramping, or bloating in your abdomen. ? You have signs of dehydration, such as: ? Dark urine, very little urine, or no urine. ? Cracked lips. ? Dry mouth. ? Sunken eyes. ? Sleepiness. ? Weakness. ? You have trouble breathing or chest pain. Summary ? Often, abdominal pain is not serious and it gets better with no treatment or by being treated at home. However, sometimes abdominal pain is serious. ? Watch your condition for any changes. ? Take pami-ard-ymlnkff and prescription medicines only as told by your health care provider. ? Contact a health care provider if your abdominal pain changes or gets worse. ? Get help right away if you have severe pain, cramping, or bloating in your abdomen. This information is not intended to replace advice given to you by your health care provider. Make sure you discuss any questions you have with your health care provider. Document Revised: 06/13/2020 Document Reviewed: 09/03/2019 [employer] Patient Education ? 2022 [employer]. ED PATIENT SUMMARY Observed: 12/19/2023 11:16 PM Status: F Source: [facility] ED Patient Summary [address] [address] Patient Discharge Instructions Person Information Name: LORA MARTINS Age: 43 Years Arrival Date: 12/19/2023 15:58:56 Discharge Diagnosis: 1:Acute abdominal pain; 2:Hepatomegaly Primary Care Physician: DAPHNE GARCIA CNP Provider Information Primary Provider: Reza Bedoya DO Advanced Requirements Manager:None The exam and treatment you received in the Emergency Department were for an urgent problem and are not intended as complete care. It is important that you follow up with a doctor, nurse practitioner, or physician?s assistant city attorney for ongoing care. If your symptoms become worse or you do not improve as expected and you are unable to reach your usual health care provider, you should return to the Emergency Department. We are available 24 hours a day. LORA MARTINS has been given the following list of patient education materials, prescriptions and follow-up instructions: Follow-up Instructions: With: Address: When: Booker Shelley [address] [place] [address], [facility] [address], [address] [address] [phone] Business (1) In 3 days 12/22/2023 With: Address: When: DAPHNE GARCIA [address] [place], [place] [id number] [phone] Business (1) In 3 days In the event that this physician does not participate in your insurance network, please consult with your insurance company to find a nearby participating provider. Patient Education Materials: Hepatomegaly, Zuci-qo-Ohhq; Abdominal Pain, Adult A MESSAGE TO ALL PATIENTS REGARDING OPIOIDS PRESCRIPTION OPIOIDS: WHAT YOU NEED TO KNOW Prescription opioids can be used to help relieve bqvswgch-za-ehblay pain and are often prescribed following a [...] unused prescription opioids: Find your community drug take- back program or your pharmacy mail-back program, or flush them down the toilet, following guidance from the Food and Drug Administration (www.fda.gov/Drugs/ResourcesForYou). ? Visit www.cdc.gov/drugoverdose to learn about the risks of opioids abuse and overdose. ? If you believe you may be struggling with addiction, tell your health weekend caregiver and ask for guidance or call [facility]?S National Helpline at 7-034-984-OWOP. i Source: US Department of Health and Human Services/Center for Disease Control & Prevention [facility] Medications Given: Medication Dose Route Sodium Chloride 0.9% intravenous solution 1000.00 mL Initial Volume 1000.00 mL/hr IV Left Antecubital Hardy Sodium Chloride 0.9% intravenous solution 1000.00 mL Initial Volume 1000.00 mL/hr IV Left Antecubital Hardy ondansetron 4.00 mg IV Push Left Antecubital Hardy morphine 2.00 mg IV Push Left Antecubital Radha tramadol 50.00 mg Oral ondansetron 4.00 mg Oral Medication Information: New Medications [facility]/pharmacy #[id number], [address], [place] [id number], [phone] dicyclomine (Bentyl 10 mg Cap) 1 Capsules By Mouth every 6 hours as needed Spasm for 7 Days. Refills: 0. tramadol (traMADOL 50 mg Tab) 0.5-1 tab(s) By Mouth every 6 hours as needed as needed for pain. Refills: 0. Comment: Pharmacy Information: Patient Portal You may access all of your results and other medical record information on our secure patient portal. If you are not signed up for this yet, please contact Health Information Management at [phone] to get signed up today. GAURAV Award Nomination The GAURAV (Diseases Attacking the Immune SYstem) Award is an international recognition program that honors and celebrates the skillful, compassionate care nurses provide every day. Anyone who experiences or observes amazing care being provided by a nurse is encouraged to submit a nomination. To nominate your nurse, use your smart phone to scan the QR code below. You may receive a survey from [employer] asking you to rate your care experience. Your feedback is important and will help us understand what we do well and how we can improve the quality of care we provide to you, your loved ones and our community. It?s an honor to serve you. Thank you for choosing [facility] Patient Education Materials: Hepatomegaly Hepatomegaly is when the liver is [...] to do the following: Medicines ? Take gfhm-guj-hhmunfh and prescription medicines only as told by your doctor. ? Do not take any new medicine unless your doctor says it is okay. ? This includes vitamins, herbs, supplements, and ceac-boz-mmoyvxe medicines. Some of these can hurt your [...] provider. Document Revised: 03/24/2022 Document Reviewed: 03/24/2022 [employer] Patient Education ? 2022 [employer]. Abdominal Pain, Adult Pain in the abdomen [...] these instructions at home: Medicines ? Take radq-bwx-dxlddzs and prescription medicines only as told by [...] stools that look like tar. ? You have severe pain, cramping, or bloating in your abdomen. ? You have signs of dehydration, such as: ? Dark urine, very little urine, or no urine. ? Cracked lips. ? Dry mouth. ? Sunken eyes. ? Sleepiness. ? Weakness. ? You have trouble breathing or chest pain. Summary ? Often, abdominal pain is not serious and it gets better with no treatment or by being treated at home. However, sometimes abdominal pain is serious. ? Watch your condition for any changes. ? Take cysy-irr-unxuuhe and prescription medicines only as told by your health care provider. ? Contact a health care provider if your abdominal pain changes or gets worse. ? Get help right away if you have severe pain, cramping, or bloating in your abdomen. This information is not intended to replace advice given to you by your health care provider. Make sure you discuss any questions you have with your health care provider. Document Revised: 06/13/2020 Document Reviewed: 09/03/2019 Elsevier Patient Education ? 2022 [employer]. I, LORA MARTINS , have received the following patient education materials/instructions and have verbalized understanding: Patient Education Materials: Hepatomegaly, Xcjr-zu-Vxny; Abdominal Pain, Adult Follow-up Instructions: With: Address: When: Booker Shelley [address] [place] [address], [facility] [address], [address] [address] [phone] Business (1) In 3 days 12/22/2023 With: Address: When: DAPHNE GARCIA [address] [place], [place] [phone] Business (1) In 3 days Patient Signature Date Clinician/Nurse Signature Date 12/19/2023 23:16:41 ED CLINICAL SUMMARY Observed: 12/19/2023 11:16 PM Status: F Source: [facility] ED Clinical Summary [address] [address] ED Clinical Summary Person Information Name: LORA MARTINS [place] Age: 43 Years : 1980 Sex: Female Language: Lao PCP: DAPHNE GARCIA CNP Marital Status: Single Visit Id: Visit [...] 12/19/2023 23:16:39 12/19/2023 23:16:39 12/19/2023 23:16:39 ADDRESS: [address] [place] [phone] PHYS DOC NOTES: MEDICAL INFORMATION: Prescriptions Given: New Medications [id number], [address] [facility], [place] [phone], [phone] dicyclomine (Bentyl 10 mg Cap) 1 Capsules By Mouth every 6 hours as needed Spasm for 7 Days. Refills: 0. tramadol (traMADOL 50 mg Tab) 0.5-1 tab(s) By Mouth every 6 hours as needed as needed for pain. Refills: 0. PATIENT EDUCATION INFORMATION: Instructions: Hepatomegaly, Dzxe-aa-Vdzg; Abdominal Pain, Adult Follow up: With: Address: When: Booker Shelley [address] [facility], [address], [address] [phone] Business (1) In 3 days 12/22/2023 With: Address: When: DAPHNE GARCIA [address] [place], [place] [phone] Business (1) In 3 days DIAGNOSIS: 1:Acute abdominal pain; 2:Hepatomegaly ED NOTE-PHYSICIAN Observed: 12/19/2023 11:05 PM Status: F Source: [facility] ED Note-Physician Basic Information Time Seen: Emily Troy PA-C 12/19/2023 17:17 [facility]. had ct's done. still [...] The patient states she was seen at [facility] last Tuesday. She states they did a [...] concentrating, paranoia, anhedonia, lack of energy, beatriz Hematologic/lymphatic: Denies any purpura, petechiae, excessive bleeding, bruising [...] liver is enlarged to 21 cm in length. I had extensive discussion with the patient regarding the results of the entire workup. I did discuss with her that her liver is enlarged. I also discussed with her the degree of discomfort and cramping in her intestine she has that I recommend close follow-up with Dr Shelley and likely he will want to proceed with colonoscopy evaluation. The patient states she has been told this in the past but was reluctant to proceed with colonoscopy. She states at this point she does realize she needs to see the GI physician for follow-up and do what ever testing he deems necessary. I discussed the discharge diagnosis, plan of care, home-going instructions and prescriptions with the patient. Patient will be discharged home in stable condition. She is to return to the emergency department for any further problems or concerns. Shared decision making: I discussed the discharge diagnosis and plan of care with the patient. She is in agreement plan of care. Code status: Not applicable Assessment/Plan 1. Acute abdominal pain (R10.9: Unspecified abdominal pain) Ordered: tramadol, 0.5-1 tab(s), Oral, q6hr, PRN as needed for pain, # 12 tab(s), Refills(s) 0, Pharmacy: [facility]/pharmacy #[id number], 170.2, cm, 12/19/23 16:15:00 EDT, Height/Length Dosing, 57.8, kg, 12/19/23 16:15:00 EDT, Weight Dosing 2. Hepatomegaly (R16.0: Hepatomegaly, not elsewhere classified) Orders: dicyclomine, 10 mg = 1 cap(s), Oral, q6hr, PRN Spasm, X 7 day(s), # 30 cap(s), Refills(s) 0, Pharmacy: [facility]/pharmacy #[id number], 170.2, cm, 12/19/23 16:15:00 EDT, Height/Length Dosing, 57.8, kg, 12/19/23 16:15:00 EDT, Weight Dosing morphine, 2 mg = 1 mL, Injection, IV Push, Once, Stop date 12/19/23 18:52:00 EDT, STAT, Start date 12/19/23 18:52:00 EDT, 12/19/23 18:52:00 EDT ondansetron, 4 mg = 2 mL, Injection, IV Push, Once, Stop date 12/19/23 18:52:00 EDT, STAT, Start date 12/19/23 18:52:00 EDT, 12/19/23 18:52:00 EDT ondansetron, 4 mg = 1 tab(s), Tab-Dis, Oral, Once, Stop date 12/19/23 23:03:00 EDT, STAT, Start date 12/19/23 23:03:00 EDT, 12/19/23 23:03:00 EDT Sodium Chloride 0.9% intravenous solution 1,000 mL, 1,000 mL, IV, 1,000 mL/hr, STAT, Start date 12/19/23 18:31:00 EDT, 1 hour(s), Total volume (mL): 1,000, 57.8 kg, 1.65, m2 Sodium Chloride 0.9% intravenous solution 1,000 mL, 1,000 mL, IV, 1,000 mL/hr, STAT, Start date 12/19/23 18:36:00 EDT, 1 hour(s), Total volume (mL): 1,000, 57.8 kg, 1.65, m2 tramadol, 50 mg = 1 tab(s), Tab, Oral, Once, Stop date 12/19/23 23:03:00 EDT, STAT, Start date 12/19/23 23:03:00 EDT, 12/19/23 23:03:[address] Abdomen/Pelvis w/ Contrast Medications Administered Given Sodium Chloride 0.9% IV Susie 1000 mL 1,000 mL, 1000 mL, IV Sodium Chloride 0.9% IV Susie 1000 mL 1,000 mL, 1000 mL, IV morphine 2 mg/mL Inj, 2 mg, IV Push ondansetron 4 mg/2 mL Inj, 4 mg, IV Push Disposition Plan Patient Discharge Condition Stable Discharge Disposition Home Discharge Prescription List Prescriptions Bentyl 10 mg Cap, 10 mg= 1 cap(s), Oral, q6hr, PRN traMADOL 50 mg Tab, 0.5-1 tab(s), Oral, q6hr, PRN Follow-up With When Contact Information Booker Shelley In 3 days 12/22/2023 EDT [address], [address] [phone] Business (1) Additional Instructions: DAPHNE GARCIA In 3 days [address] [place] [address] [phone] Business (1) Additional Instructions: Patient Education Hepatomegaly, Ijlf-im-Mrfa Abdominal Pain, Adult Attestation I performed a substantive part of the MDM during the patient?s E/M visit. I personally made or approved the documented management plan and acknowledge its risk of complications. (Independent Interpretation) My (EKG/X-Ray/US/CT) interpretation as above. (Discussion) Management/test interpretation discussed with APC. Problem List/Past Medical History Ongoing No qualifying data Historical No qualifying data Medications Inpatient ondansetron 4 mg Dis Tab, 4 mg= 1 tab(s), Oral, Once Sodium Chloride 0.9% IV Susie 1000 mL 1,000 mL, 1000 mL, IV Sodium Chloride 0.9% IV Susie 1000 mL 1,000 mL, 1000 mL, IV traMADOL 50 mg Tab, 50 mg= 1 tab(s), Oral, Once Home Bentyl 10 mg Cap, 10 mg= 1 cap(s), Oral, q6hr, PRN traMADOL 50 mg Tab, 0.5-1 tab(s), Oral, q6hr, PRN Allergies amoxicillin (Unkempt) Social History Alcohol - Denies Alcohol Use, 12/19/2023 Substance Abuse - Denies Substance Abuse, 12/19/2023 Tobacco - Denies Tobacco Use, 12/19/2023 Lab Results WBC: 11.5 E9/L High (12/19/23 17:09:00) RBC: 4.7 E12/L (12/19/23 17:09:00) HGB: 14.7 gm/dL (12/19/23 17:09:00) Hct: 42.6 % (12/19/23 17:09:00) MCV: 91.3 fL (12/19/23 17:09:00) MCH: 31.5 pg (12/19/23 17:09:00) MCHC: 34.5 gm/dL (12/19/23 17:09:00) RDW: 13.1 % (12/19/23 17:09:00) Platelet: 173 E9/L (12/19/23 17:09:00) MPV: 8.9 fL (12/19/23 17:09:00) Neutro Auto: 75.4 % High (12/19/23 17:09:00) Lymph Auto: 18.7 % (12/19/23 17:09:00) Haskell Auto: 4.8 % (12/19/23 17:09:00) Eos Auto: 0.6 % (12/19/23 17:09:00) Basophil Auto: 0.5 % (12/19/23 17:09:00) Neutro Absolute: 8.7 E9/L High (12/19/23 17:09:00) Lymph Absolute: 2.2 E9/L (12/19/23 17:09:00) Haskell Absolute: 0.6 E9/L (12/19/23 17:09:00) Eos Absolute: 0.1 E9/L (12/19/23 17:09:00) Basophil Absolute: 0.1 E9/L (12/19/23 17:09:00) PT: 11.8 second(s) (12/19/23:09:00) INR: 1.05 (12/19/23:09:00) PTT: 29 second(s) (12/19/23 17:09:00) Glucose Lvl: 92 mg/dL (12/19/23 17:09:00) BUN: 17 mg/dL (12/19/23 17:09:00) Creatinine: 0.9 mg/dL (12/19/23 17:09:00) eGFR: 80 mL/min/1.73 m2 (12/19/23 17:09:00) BUN/Creat Ratio: 19 (12/19/23 17:09:00) Sodium Lvl: 138 mmol/L (12/19/23 17:09:00) Potassium Lvl: 4.3 mmol/L (12/19/23 17:09:00) Chloride: 103 mmol/L (12/19/23 17:09:00) CO2: 29 mmol/L (12/19/23 17:09:00) AGAP: 10 mEq/L (12/19/23 17:09:00) Calcium Lvl: 9.7 mg/dL (12/19/23 17:09:00) Alk Phos: 28 Int._Unit/L (12/19/23 18:23:00) ALT: 14 Int._Unit/L (12/19/23 18:23:00) AST: 14 Int._Unit/L (12/19/23 18:23:00) Total Protein: 6.4 gm/dL (12/19/23 18:23:00) Albumin Lvl: 4.3 gm/dL (12/19/23 18:23:00) Globulin: 2.1 gm/dL (12/19/23 18:23:00) A/G Ratio: 2 (12/19/23 18:23:00) Bili Total: 1 mg/dL (12/19/23 18:23:00) Bili Direct: 0.1 mg/dL (12/19/23 18:23:00) Bili Indirect: 0.9 mg/dL (12/19/23 18:23:00) Lipase Lvl: 18 unit/L (12/19/23 18:23:00) Troponin HS: 2.4 pg/mL Low (12/19/23 18:23:00) Diagnostic Results No qualifying data available. EKG Results EC12/19/23: SINUS RHYTHM No ectopy no ST elevation NORMAL ECG Signed By: Reza Bedoya DO 12/19/2023 16:13:50 Result Comment: Electronical ly Signed By: Emily Troy PA-C\.br\Date and Time Signed: 12/19/23 23:05 EDT\.br\Electronically Co-Signed By: Emily Troy PA-C\.br\Date and Time Co-Signed: 12/19/23 23:06 EDT\.br\Electronically Co-Signed By: Emily Troy PA-C\.br\Date and Time Co-Signed: 12/19/23 23:22 EDT\.br\Electronically Co-Signed By: Reza Bedoya DO\.br\Date and Time Co- Signed: 12/20/23 07:[address] ABDOMEN/PELVIS W/ CONTRAST Observed: 12/19/2023 7:33 PM Status: F Source: [facility] Exam Date/Time: 12/19/2023 19:53 EDT Reason for [...] Lymph nodes: No pathologically enlarged lymph nodes. Mesentery/peritoneum: No ascites or mass. Retroperitoneum: No inflammatory changes or mass. Pelvis: The urinary bladder and adnexa are unremarkable. Previous hysterectomy. Vasculature: No aneurysm or dissection. Musculoskeletal: No acute osseous findings identified. Lower thorax: Noncontributory. Report Ordering Provider: Emily Troy FINAL REPORT Dictated: 12/20/2023 9:[address] MD Signed (Electronic Signature): 12/20/2023 9:42 am Signed by: Jayant St MD Transcribed by: DP Technologist: SELENA Technical Comments GFR (mL/min/1/73m2) 80 Contrast: Isovue 300 Contrast amount in ml's: 100 LIPASE LEVEL Collected: 12/19/2023 6:23 PM Status: F Source: [facility] TYPE CODE TESTS RESULT OUT OF RANGE REFERENCE UNITS LAB 3040-3(LOINC) TRIACYLGLYCEROL LIPASE:CCNC:PT:SER /PLAS:QN: 18 Normal 13-58 unit/L Performed By: #### [id number] # ### [facility] [address] [place] [address] HEP FUNC PANEL Collected: 6:23 PM Status: F Source: [facility] TYPE CODE TESTS RESULT OUT OF RANGE REFERENCE UNITS LAB 1744-2([facility]) ALANINE AMINOTRANSFER ASE:CCNC:PT:S ER/PLAS:QN:NO ADDITION OF P-5'-P 14 Normal 6-46 Int._Unit /L LAB 1920-8([facility]) ASPARTATE AMINOTRANSFER ASE:CCNC:PT:S ER/PLAS:QN: 14 Normal 5-43 Int._Unit /L LAB 1751-7([facility]) ALBUMIN:MCNC: PT:SER/PLAS:Q N: 4.3 Normal 3.3-5.0 gm/dL LAB 98169-5([facility]) GLOBULIN:MCNC :PT:SER:QN:CA LCULATED 2.1 Normal 1.4-4.0 gm/dL LAB 11852-3([facility]) ALBUMIN/GLOBU JOSE C:MCRTO:PT: SER:QN: 2.0 Normal 1.1-2.2 LAB 6768-6([facility]) ALKALINE PHOSPHATASE:C CNC:PT:SER/PL :QN: 28 Normal 21-98 Int._Unit /L LAB 1967-7([facility]) BILIRUBIN.GLU CURONIDATED+B ILIRUBIN.ALBU MIN BOUND:MCNC:PT :SER/PLAS:QN: 0.1 Normal 0.0-0.4 mg/dL LAB 60541-8([facility]) BILIRUBIN.NON -GLUCURONIDAT ED:MSCNC:PT:S ER/PLAS:QN: 0.9 Normal 0.1-0.9 mg/dL LAB 1974-2([facility]) BILIRUBIN:MCN C:PT:SER/PLAS :QN: 1.0 Normal 0.0-1.1 mg/dL LAB 2885-2([facility]) PROTEIN:MCNC: PT:SER/PLAS:Q N: 6.4 Normal 6.0-7.8 gm/dL Performed By: #### [id number] # ### [facility] [address] [place] [address] TROPONIN 1 HR. Collected: 4 6:23 PM Status: F Source: [facility] Order Comment: 1809 TYPE CODE TESTS RESULT OUT OF RANGE REFERENCE UNITS LAB [id number]([facility]) Troponin HS 2.40 Low 10.10-27.10 pg/mL Result Comment: The 95% CI ( Confidence Interval) PPV (Positive Predictive Value) for myocardial infarction in females is 38 pg/mL, in males 51 pg/mL. The results should be used in conjunction with clinical conditions of myocardial infarction. (Access High Sensitivity Troponin I Instructions For Use, [employer], December 2017) Performed By: #### [id number] #### [facility] [address] [place] [address] TROPONIN 0 HR. Collected: 5:09 PM Status: F Source: [facility] TYPE CODE TESTS RESULT OUT OF RANGE REFERENCE UNITS LAB 84923534([facility]) Troponin HS 2.70 Low 10.10-27.10 pg/mL Result Comment: The 95% CI ( Confidence Interval) PPV (Positive Predictive Value) for myocardial infarction in females is 38 pg/mL, in males 51 pg/mL. The results should be used in conjunction with clinical conditions of myocardial infarction. (Veronica High Sensitivity Troponin I Instructions For Use, [employer], December 2017) Performed By: #### [id number] #### [facility] [address] [place] [address] CBC W/ AUTO DIFF Collected: 12/19/2023 5:09 PM Statu s: F Source: [facility] TYPE CODE TESTS RESULT OUT OF RANGE REFERENCE UNITS LAB 73409-8([facility]) LEUKOCYTES^^KEREN ECTED FOR NUCLEATED ERYTHROCYTES:NCN C:PT:BLD:QN:AUTO MATED COUNT 11.5 High 4.0-11.0 E9/L LAB 789-8([facility]) ERYTHROCYTES:NCN C:PT:BLD:QN:AUTO MATED COUNT 4.7 Normal 4.3-5.9 E12/L LAB 718-7(LOINC) HEMOGLOBIN:MCNC: PT:BLD:QN: 14.7 Normal 12.0-16.0 gm/dL LAB 4544-3(LOINC) HEMATOCRIT:VFR:P T:BLD:QN:AUTOMAT ED COUNT 42.6 Normal 34.0-46.0 % [facility] 788[facility] ERYTHROCYTE DISTRIBUTION WIDTH:RATIO:PT:R BC:QN:AUTOMATED COUNT 13.1 Normal 10.9-14.2 % LAB 785-6([facility]) ERYTHROCYTE MEAN CORPUSCULAR HEMOGLOBIN:ENTMA SS:PT:RBC:QN:AUT OMATED COUNT 31.5 Normal 27.0-34.0 pg LAB 786-4([facility]) ERYTHROCYTE MEAN CORPUSCULAR HEMOGLOBIN CONCENTRATION:MC NC:PT:RBC:QN:AUT OMATED COUNT 34.5 Normal 31.4-36.0 gm/dL LAB 787-2([facility]) ERYTHROCYTE MEAN CORPUSCULAR VOLUME:ENTVOL:PT :RBC:QN:AUTOMATE D COUNT 91.3 Normal 80.0-100.0 fL LAB 23282-3([facility]) PLATELET MEAN VOLUME:ENTVOL:PT :BLD:QN:AUTOMATE D COUNT 8.9 Normal 6.4-10.8 fL LAB 777-3([facility]) PLATELETS:NCNC:P T:BLD:QN:AUTOMAT ED COUNT 173.0 Normal 150.0-500.0 E9/L LAB 87230-1([facility]) NEUTROPHILS/100 LEUKOCYTES:NFR:P T:BLD:QN: 75.4 High 36.0-75.0 % LAB 731-0(INC) LYMPHOCYTES:NCNC :PT:BLD:QN:AUTOM ATED COUNT 18.7 Normal 14.0-50.0 % LAB 742-7(INC) MONOCYTES:NCNC:P T:BLD:QN:AUTOMAT ED COUNT 0.6 Normal 0.2-1.0 E9/L LAB 713-8([facility]) EOSINOPHILS/100 LEUKOCYTES:NFR:P T:BLD:QN:AUTOMAT ED COUNT 0.6 Normal 0.0-8.0 % LAB 704-7(INC) BASOPHILS:NCNC:P T:BLD:QN:AUTOMAT ED COUNT 0.5 Normal 0.0-2.0 % LAB 751-8(INC) NEUTROPHILS:NCNC :PT:BLD:QN:AUTOM ATED COUNT 8.7 High 2.0-7.5 E9/L LAB 79342-5([facility]) LYMPHOCYTES:NCNC :PT:BLD:QN: 2.2 Normal 1.0-4.0 E9/L LAB 54162-1([facility]) EOSINOPHILS:NCNC :PT:BLD:QN: 0.1 Normal 0.0-0.5 E9/L LAB 44047-2([facility]) BASOPHILS/LEUKOC YTES:NFR.DF:PT:B LD:QN:AUTOMATED COUNT 0.1 Normal 0.0-0.2 E9/L Performed By: #### [id number] # ### [facility] [address] [place] [address] EGFR Collected: 4 5:09 PM Status: F Source: [facility] Order Comment: Order added b y Discern Expert. TYPE CODE TESTS RESULT OUT OF RANGE REFERENCE UNITS LAB [id number]([facility]) eGFR 80 Normal >=59 mL/min/1 . 73 m2 Performed By: #### [id number] #### [facility] [address] [place] [address] PT & PTT Collected: 4 5:09 PM Status: F Source: [facility] REPOSITORY TYPE CODE TESTS RESULT OUT OF RANGE REFERENCE UNITS LAB 5902-2([facility]) COAGULATION TISSUE FACTOR INDUCED:TIME:P T:PPP:QN:COAG 11.8 Normal 9.4-12.5 second( s) Result Comment: 15 days - 4 weeks 1 - [...] the same coagulation reagent and instrumentation as [facility]. Currently there are no coagulation studies available worldwide for children to 14 days, and no normal ranges. LAB 92395-9([facility] ) COAGULATION SURFACE INDUCED:TIME:P T:PPP:QN:COAG 29.0 Normal 25.1-36.5 second( s) Result Comment: Parameter 15 days - 4 weeks 1 - [...] the same coagulation reagent and instrumentation as [facility]. Currently there are no coagulation studies available worldwide for children to 14 days, and no normal ranges. Heparin therapeutic range (represented by Anti-Factor Xa activity of 0.2 - 0.4 U/mL) corresponds to PTT of 56.6 - 109.0 sec. LAB 3651-6([facility]) COAGULATION TISSUE FACTOR INDUCED.INR:RE LTIME:PT:PPP:Q N:COAG 1.05 Unknown Result Comment: INR results are specifically intended to assess patients stabilized on long-term Anticoagulation therapy suggested INR?s ?Less Intensive Anticoagulation? 2.0 ? 3.0 Conventional Range 3.0 ? 4.5 Performed By: #### [id number] #### [facility] [address] [place] [address] BMP Collected: 4 5:09 PM Status: F Source: [facility] REPOSITORY TYPE CODE TESTS RESULT OUT OF RANGE REFERENCE UNITS LAB 2345-7([facility]) GLUCOSE:MCNC :PT:SER/PLAS :QN: 92 Normal 55-199 mg/dL LAB 3094-0(INC) UREA NITROGEN:MCN C:PT:SER/ABILIO S:QN: 17 Normal 5-21 mg/dL LAB 2160-0([facility]) CREATININE:M CNC:PT:SER/P LAS:QN: 0.9 Normal 0.5-1.3 mg/dL LAB 3097-3([facility]) UREA NITROGEN/CRE ATININE:MRTO :PT:SER/PLAS :QN: 19 Normal 10-20 No Units LAB 53328-8([facility]) CALCIUM:MCNC :PT:SER/PLAS :QN: 9.7 Normal 8.9-11.1 mg/dL LAB 2951-2([facility]) SODIUM:SCNC: PT:SER/PLAS: QN: 138 Normal 135-145 mmol/L LAB 2823-3([facility]) POTASSIUM:SC NC:PT:SER/PL :QN: 4.3 Normal 3.5-5.3 mmol/L LAB 5-0([facility]) CHLORIDE:SCN C:PT:SER/ABILIO S:QN: 103 Normal 101-111 mmol/L LAB 2027-9([facility]) CARBON DIOXIDE:SCNC :PT:SER/PLAS :QN: 29 Normal 21-31 mmol/L LAB 22320-6([facility]) ANION GAP:SCNC:PT: SER/PLAS:QN: 10 Normal 6-16 mEq/L Performed By: #### [id number] # ### [facility] [address] [place] [address] ALLERGIES DATE TYPE / CODE NAME / CODE REACTION SEVERITY SOURCE /[id number](SNOMED CT) amoxicillin Unkempt [facility] ENCOUNTERS ADMIT/DISCHARGE ACCOUNT NUMBER ADMITTING ENCOUNTER CLASS LOCATION SOURCE 12/26/2023/ 4 [id number] [facility] 12/22/2023/ 4 [id number] Ambulatory Building:[facility] 12/20/2023 [id number] Ambulatory [facility] DHBuilding:F Estefany [facility] 12/19/2023 [id number] Emergency [facility] :EDRoom: ED-11Bed: CD:[id number] [facility] 12/19/[id number] Emergency [facility] :[facility]Room: ED-11Bed: CD:[id number] [facility] 12/19/[id number] Emergency [facility] :EDRoom: ED-11Bed: CD:[id number] [facility] 12/19/2023/ 4 [id number] Emergency [facility] :EDRoom: ED-11Bed: CD:[id number] [facility] 12/19/2023 [id number] Ambulatory Ursula ding:[facility] PAYERS ENCOUNTER GUARANTOR PAYER SUBSCRIBER SOURCE 12/26/2023 [place]A [place]DER[place]OB: [place] [address]Cza: (HP) Primary Insurance:[employer] olicy Number: [id number] Date:2023-12-07 LORA WONDERDOB: [id number] [place] [address] [facility] 12/22/2023 LORA WONDERDOB: [place] [address]Kzg: (HP) Primary Insurance:[employer] olicy Number: [id number] Date:2023-12-07 LORA WONDERDOB: [id number] [place] [address] [facility] 12/20/2023 LORA WONDERDOB: LOUISA STTel: (HP) Primary Insurance:[employer] BenefitsPolicy Number: [id number] Date:[id number] [address] [address]AL: [facility] 12/19/2023 [facility]ORA WONDERD[facility] Primary Insurance:[employer] BenefitsPolicy Number: [id number] Date:[id number] [address] [address]IR: [facility] 12/19/2023 LOAR WONDERDOB: LOUISA STTel: (HP) Primary Insurance:[employer] BenefitsPolicy Number: [id number] Date:3703-37-73OY [address] [place] [address]: [facility] (HP[facility] Primary Insurance:Health[employer] BenefitsPolicy Number: [id number] Date:6429-46-90XW [address] [address]MZ: [facility] 12/19/2023 [facility] (HP) Primary Insurance:[employer] BenefitsPolicy Number: [id number] Date:7981-44-76IV [address] [address]ZG: [facility]
--- NOTE | 2024-01-05 06:15 | NM_ITS ---
[address] [address] Patient Name: LORA MARTINS MRN: [id number] date: 1980 Sex: F Assigned Patient Location: [place] Current Patient Location: [place] Accession/Order Number: [id number] Exam Date: 01/05/2024 06:15 Report Date: 01/10/2024 15:30 At the request of: DAPHNE GARCIA Procedure: [place] hepatobiliary w pharm EXAMINATION: [place] hepatobiliary w pharm HISTORY: RIGHT UPPER QUADRANT PAIN COMPARISON: Ultrasound right upper quadrant 12/16/2023 TECHNIQUE: Radionuclide hepatobiliary imaging was performed after intravenous injection of 4.9 mCi Tc-99m JULIUS derivative with sequential acquisitions every 1 minute for one hour. Hepatobiliary imaging with gallbladder ejection fraction analysis was then performed with sequential imaging every 1 minute for 60 minutes following ingestion of 8 oz. Ensure Plus. FINDINGS: LIVER: Normal, prompt and uniform radiotracer uptake and clearing. BILIARY DUCTS: Normal radioisotopic biliary excretion. GALLBLADDER: Normal with no evidence of cystic duct obstruction. INTESTINE: Normal with no evidence of common biliary ductal obstruction. EJECTION FRACTION: 89 % within 60 minutes. (Normal EF > 38%). OTHER: Negative. [place] hepatobiliary w pharm IMPRESSION: 1. Normal nuclear medicine HIDA scan. Electronically authenticated by: RAMYA LAYNE Date: 01/10/2024 15:30
== END 2024-01-05 06:13 | disposition home or self-care (01) ==
LOC: NM 06:12
PROVIDERS: PCP Nurse Practitioner; Visit Provider Nurse Practitioner
DX: R10.10 Upper abdominal pain, unspecified (principal); R16.0 Hepatomegaly, not elsewhere classified
CPT/HCPCS: 78227; A9537

== ENCOUNTER 2024-01-09 20:39 | Emergency (ER) | payer OTHER, SELFPAY ==
--- OUTSIDE RECORDS SUMMARY | 2024-01-09 20:46 | XMS_ITS | CCD ---
Author Organization [facility] Care Team Providers Care Equine Breeder Name Role Phone [facility] BIOMATERIALS ENGINEER CYNDI Consulting Unavailable AICHOLZ, BIOMATERIALS ENGINEER CYNDI Primary Care Unavailable AICHOLZ, BIOMATERIALS ENGINEER CYNDI Attending Unavailable AICHOL, BIOMATERIALS ENGINEER CYNDI Admitting Unavailable SNOWEBSILVIA, DR BURAK Rogers Consulting Unavailable KARASIK ., DR HDZ Consulting Unavailabl e AICHHOLZ, [facility] CYNDI Primary Care Unavailable KARASIK ., DR HDZ Attending Unavailabl e KARASIK ., DR HDZ Admitting Unavailabl e PIPPA LOVING Consulting Unavaila ble GEMNUPUR PENNINGTON Consulting Unavailable KARASIK ., DR HDZ Consulting Unavailabl e AICHHOLZ, [facility] CYNDI Primary Care Unavailable KARASIK ., DR HDZ Attending Unavailabl e KARASIK ., DR HDZ Admitting Unavailabl e CEDENO, RAMON Consulting Unavailable AICHHOLZ, BIOMATERIALS ENGINEER CYNDI Primary Care Unavailable KARASIK ., DR HDZ Attending Unavailabl e KARASIK ., DR HDZ Admitting Unavailabl e AICHHOLZ, [facility] CYNDI Primary Care Unavailable KARASIK ., DR HDZ Attending Unavailabl e KARASIK ., DR HDZ Admitting Unavailabl e AICHHOLZ, [facility] CYNDI Primary Care Unavailable KARASIK ., DR HDZ Attending Unavailabl e KARASIK ., DR HDZ Admitting Unavailabl e KARASIK ., DR HDZ Consulting Unavailabl e AICHHOLZ, [facility] CYNDI Primary Care Unavailable KARASIK ., DR HDZ Attending Unavailabl e KARASIK ., DR HDZ Admitting Unavailabl e KARASIK ., DR HDZ Consulting Unavailabl e KARESTEPHANIA SUN Admitting Unavailable AICHHOLZ, BIOMATERIALS ENGINEER CYNDI Primary Care Unavailable KARASIK ., DR HDZ Attending Unavailabl e TED, DR MIKE Flores Consulting Unavailable AICHHOLZ, BIOMATERIALS ENGINEER CYNDI Primary Care Unavailable AICHHOLZ, BIOMATERIALS ENGINEER CYNDI Attending Unavailable AICHHOLZ, BIOMATERIALS ENGINEER CYNDI Admitting Unavailable AICHHOLZ, BIOMATERIALS ENGINEER CYNDI Consulting Unavailable AICHHOLZ, BIOMATERIALS ENGINEER CYNDI Consulting Unavailable AICHHOLZ, BIOMATERIALS ENGINEER CYNDI Primary Care Unavailable AICHHOLZ, BIOMATERIALS ENGINEER CYNDI Attending Unavailable AICHHOLZ, BIOMATERIALS ENGINEER CYNDI Admitting Unavailable AICHHOLZ, BIOMATERIALS ENGINEER CYNDI Consulting Unavailable AICHHOLZ, BIOMATERIALS ENGINEER CYNDI Primary Care Unavailable AICHHOLZ, BIOMATERIALS ENGINEER CYNDI Attending Unavailable AICHHOLZ, BIOMATERIALS ENGINEER CYNDI Admitting Unavailable AICHHOLZ, BIOMATERIALS ENGINEER CYNDI Consulting Unavailable AICHHOLZ, BIOMATERIALS ENGINEER CYNDI Primary Care Unavailable AICHHOLZ, BIOMATERIALS ENGINEER CYNDI Attending Unavailable AICHHOLZ, BIOMATERIALS ENGINEER CYNDI Admitting Unavailable KARASIK ., DR HDZ Consulting Unavailabl e AICHHOLZ, BIOMATERIALS ENGINEER CYNDI Primary Care Unavailable KARASIK ., DR HDZ Attending Unavailabl e KARASIK ., DR HDZ Admitting Unavailabl e KARASIK ., DR HDZ Consulting Unavailabl e AICHHOLZ, BIOMATERIALS ENGINEER CYNDI Primary Care Unavailable KARASIK ., DR HDZ Attending Unavailabl e KARASIK ., DR HDZ Admitting Unavailabl e HEATHER SWEENEY Consulting Unavailable KARASIK ., DR HDZ Procedure Practitioner Pina vailable ADINA YIP Consulting Unavailable AICHHOLZ, BIOMATERIALS ENGINEER CYNDI Primary Care Unavailable KARASIK ., DR HDZ Attending Unavailabl e KARASIK ., DR HDZ Admitting Unavailabl e AICHHOLZ, CYNDI J Primary Care Physician [phone] Reza Bedoya Attending Unavailable AICHHOLZ, CYNDI Attending Unavailable SAMUEL MCDERMOTT Attending Unavailable Reza Bedoya Attending Unavailable Booker Shelley Attending Unavaila ble Allergies Allergy Classification Reported Allergen(s) Allergy Type Date of Onset Reaction(s) Facility (1 source) Penicillins Drug allergy (disorder) 5 [facility] Repository (1 source) Mis-Other; Translations: [place] Propensity to adverse reactions (disorder) 2 [facility] Repository (5 sources) Amoxicillin; Translations: [amoxicillin] Drug Allergy Unkempt [facility] Medications Current Medications Medication Drug Class(es) Dates Sig (Normalized) Sig (Original) dicyclomine hydrochloride 10 mg oral capsule (1 source) Anticholinergic Start: 12-19-2023 End: 12-26-2023 take 1 capsule by mouth every six hours as needed for muscle spasms Bentyl 10 mg Cap 10 mg = 1 cap(s), Oral, q6hr, PRN Spasm, X 7 day(s), # 30 cap(s), Refills(s) 0, Pharmacy: [facility]/pharmacy #[id number], 170.2, cm, 12/19/23 16:15:00 EDT, Height/Length [...] pain, # 12 tab(s), Refills(s) 0, Pharmacy: [facility]/pharmacy #[id number], 170.2, cm, 12/19/23 16:15:00 EDT, Height/Length [...] 300 Contrast amount in ml's: 100 Normal [facility] ED Note-Physicianon 12-20-19 ED Note-Physician ED Note-Physician Basic Information Time Seen: Emily Troy PA-C. 12/19/2023 17:17 Chief Complaint was at [place] for diaphram pain. had ct's done. still [...] The patient states she was seen at [facility] last Tuesday. She states they did a [...] in length (more content not included)... Normal [facility] Comment on above: Result Comment: Elec tronically Signed By: Emily Troy PA-C\.br\Date and Time Signed: 12/19/23 23:05 EDT\.br\Electronically Co-Signed By: Emily Troy PA-C\.br\Date and Time Co-Signed: 12/19/23 23:06 EDT\.br\Electronically Co-Signed By: Emily Troy PA-C\.br\Date and Time Co-Signed: 12/19/23 23:22 EDT\.br\Electronically Co-Signed By: Reza Bedoya DO\.br\Date and Time Co-Signed: 12/20/23 07:02 EDT BMPon 12-19-2023 Anion gap [Moles/Vol] 10 mmol/L Normal 6-16 [facility] Comment on above: Performed By: #### 2 [id number] #### [facility] [address] [place] [address] Calcium [Mass/Vol] 9.7 mg/dL Normal 8.9-11.1 [facility] Comment on above: Performed By: #### 2 [id number] #### [facility] [address] [place] [address] Chloride [Moles/Vol] 103 mmol/L Normal 101-111 [facility] Comment on above: Performed By: #### 2 [id number] #### [facility] [address] [place] [address] CO2 [Moles/Vol] 29 mmol/L Normal 21-31 [facility] Comment on above: Performed By: #### 2 [id number] #### [facility] [address] [place] [address] Creatinine [Mass/Vol] 0.9 mg/dL Normal 0.5-1.3 [facility] Comment on above: Performed By: #### 2 504353 #### [facility] [address] [place] [address] Glucose [Mass/Vol] 92 mg/dL Normal 55-199 [facility] Comment on above: Performed By: #### 2 110888 #### [facility] [address] [place] [address] Potassium [Moles/Vol] 4.3 mmol/L Normal 3.5-5.3 [facility] Comment on above: Performed By: #### 2 [id number] #### [facility] [address] [place] [address] Sodium [Moles/Vol] 138 mmol/L Normal 135-145 [facility] Comment on above: Performed By: #### 2 [id number] #### [facility] [address] [place] [address] Urea nitrogen [Mass/Vol] 17 mg/dL Normal 5-21 [facility] Comment on above: Performed By: #### 2 850449 #### [facility] [address] [place] [address] Urea nitrogen/Creatinine [Mass ratio] 19 No Units Normal 10-20 [facility] Comment on above: Performed By: #### 2 673811 #### [facility] [address] [place] [address] CBC w/ Auto Diffon 4 Basophils/100 WBC (Bld) 0.5 % Normal 0.0-2.0 [facility] Comment on above: Performed By: #### 2 [id number] #### [facility] [address] [place] [address] Basophils/Leukocytes Auto (Bld) [Pure # fraction] 0.1 E9/L Normal 0.0-0.2 [facility] Comment on above: Performed By: #### 2 564676 #### [facility] [address] [place] [address] Eosinophils (Bld) [#/Vol] 0.1 E9/L Normal 0.0-0.5 [facility] Comment on above: Performed By: #### 2 280520 #### [facility] [address] [place] [address] Eosinophils/100 WBC (Bld) 0.6 % Normal 0.0-8.0 [facility] Comment on above: Performed By: #### 2 787603 #### [facility] [address] [place] [address] Erythrocyte distribution width (RBC) [Ratio] 13.1 % Normal 10.9-14.2 [facility] Comment on above: Performed By: #### 2 672342 #### [facility] [address] [place] [address] Hematocrit (Bld) [Volume fraction] 42.6 % Normal 34.0-46.0 [facility] Comment on above: Performed By: #### 2 554104 #### [facility] [address] [place] [address] Hemoglobin (Bld) [Mass/Vol] 14.7 g/dL Normal 12.0-16.0 [facility] Comment on above: Performed By: #### 2 [id number] #### [facility] [address] [place] [address] Lymphocytes (Bld) [#/Vol] 2.2 E9/L Normal 1.0-4.0 [facility] Comment on above: Performed By: #### 2 634191 #### [facility] [address] [place] [address] Lymphocytes/100 WBC (Bld) 18.7 % Normal 14.0-50.0 [facility] Comment on above: Performed By: #### 2 004034 #### [facility] [address] [place] [address] MCH (RBC) [Entitic mass] 31.5 pg Normal 27.0-34.0 [facility] Comment on above: Performed By: #### 2 123467 #### [facility] [address] [place] [address] MCHC (RBC) [Mass/Vol] 34.5 g/dL Normal 31.4-36.0 [facility] Comment on above: Performed By: #### 2 246006 #### [facility] [address] [place] [address] MCV (RBC) [Entitic vol] 91.3 fL Normal 80.0-100.0 [facility] Comment on above: Performed By: #### 2 862086 #### [facility] [address] [place] [address] Monocytes (Bld) [#/Vol] 0.6 E9/L Normal 0.2-1.0 [facility] Comment on above: Performed By: #### 2 286522 #### [facility] [address] [place] [address] Neutrophils (Bld) [#/Vol] 8.7 E9/L High 2.0-7.5 [facility] Comment on above: Performed By: #### 2 975759 #### [facility] [address] [place] [address] Neutrophils/100 WBC (Bld) 75.4 % High 36.0-75.0 [facility] Comment on above: Performed By: #### 2 278372 #### [facility] [address] [place] [address] Platelet mean volume (Bld) [Entitic vol] 8.9 fL Normal 6.4-10.8 [facility] Comment on above: Performed By: #### 2 974835 #### [facility] [address] [place] [address] Platelets (Bld) [#/Vol] 173.0 E9/L Normal 150.0-500.0 [facility] Comment on above: Performed By: #### 2 824836 #### [facility] [address] [place] [address] RBC (Bld) [#/Vol] 4.7 E12/L Normal 4.3-5.9 [facility] Comment on above: Performed By: #### 2 250036 #### [facility] [address] [place] [address] WBC corrected for nucl RBC Auto (Bld) [#/Vol] 11.5 E9/L High 4.0-11.0 [facility] Comment on above: Performed By: #### 2 485043 #### [facility] [address] [place] [address] CHEMISTRYOrdered By: SYSTEM SYSTEM on 12-19-2023 Albumin [...] High Sensitivity Troponin I Instructions For Use, [employer], December 2017) Anion gap [Moles/Vol] 10 mmol/L [...] High Sensitivity Troponin I Instructions For Use, [facility], December 2017) Urea nitrogen [Mass/Vol] 17 mg/dL Normal 5 - 21 mg/dL [facility] Urea nitrogen/Creatinine [Mass ratio] 19 mg/mg Normal 10 - 20 [facility] COAGULATIONOrdered By: Courtney Sanches on 12-19-2023 aPTT Coag (PPP) [Time] 29.0 s Normal 25.1 - 36.5 second(s) [facility] Auto Coag Comment on above: Interpretive Data: [...] the same coagulation reagent and instrumentation as [facility]. Currently there are no coagulation studies available worldwide for children to 14 days, and no normal ranges. Heparin therapeutic range (represented by Anti-Factor Xa activity of 0.2 - 0.4 U/mL) corresponds to PTT of 56.6 - 109.0 sec. INR Coag (PPP) [Relative time] 1.05 {INR} Invalid Interpretation Code [facility] Auto Coag Comment on above: Interpretive Data: I NR results are specifically intended to assess patients stabilized on long-term Anticoagulation therapy suggested INR s Less Intensive Anticoagulation 2.0 3.0 Conventional Range 3.0 4.5 PT Coag (PPP) [Time] 11.8 s Normal 9.4 - 1 2.5 second(s) [facility] Auto Coag Comment on above: Interpretive Data: [...] the same coagulation reagent and instrumentation as [facility]. Currently there are no coagulation studies available worldwide for children to 14 days, and no normal ranges. ED Clinical Summaryon 2023 ED Clinical Summary ED Clinical Summary [facility] [address] [place], [place] [address] ED Clinical Summary Person Information Name: LORA MARTINS/NewAbi Age: 43 Years : 1980 Sex: Female Language: Turkmen PCP: CYNDI EPPERSON CNP Marital Status: Single [...] 12/19/2023 23:16:39 12/19/2023 23:16:39 12/19/2023 23:16:39 ADDRESS: [address] [place] [id number] PHYS DOC NOTES: MEDICAL INFORMATION: Prescriptions Given: New Medications [id number], [address], [place] [id number], [phone] dicyclomine (Bentyl 10 mg Cap) 1 Capsules By Mouth every 6 hours as needed Spasm for 7 Days. Refills: 0. tramadol (traMADOL 50 mg Tab) 0.5-1 tab(s) By Mouth every 6 hours as needed as needed for pain. Refills: 0. PATIENT EDUCATION INFORMATION: Instructions: Hepatomegaly, Dwbn-db-Pnlk; Abdominal Pain, Adult Follow up: With: Address: When: Booker Shelley [address] [facility], [address], [address] [address] [phone] Business (1) In 3 days 12/22/2023 With: Address: When: CYNDI EPPERSON [address] [place], [place] [id number] [phone] Business (1) In 3 days DIAGNOSIS: 1:Acute abdominal pain; 2:Hepatomegaly Normal [facility] ED Patient Summaryon 024 ED Patient Summary ED Patient Summary [address] [address] Patient Discharge Instructions Person Information Name: LORA MARTINS Age: 43 Years Arrival Date: 12/19/2023 15:58:56 Discharge Diagnosis: 1:Acute abdominal pain; 2:Hepatomegaly Primary Care Physician: CYNDI EPPERSON CNP Provider Information Primary Provider: Reza Bedoya DO Advanced Resource Recovery Engineer:None The exam and treatment you received in the Emergency Department were for an urgent problem and are not intended as complete care. It is important that you follow up with a doctor, nurse practitioner, or physician?s floral assistant for ongoing care. If your symptoms [...] Follow-up Instructions: With: Address: When: Booker Shelley [address] [place] [address], [address], [address] [phone] [employer] (1) In 3 days 12/22/2023 With: Address: When: CYNDI EPPERSON [address], [place] [phone] [facility] (1) In 3 days In the event that this physician does not participate in your insurance network, please consult with your insurance company to find a nearby participating provider. Patient Education Materials: Hepatomegaly, Duqa-sp-Wmxp; Abdominal Pain, Adult A MESSAGE TO ALL PATIENTS REGARDING OPIOIDS PRESCRIPTION OPIOIDS: WHAT YOU NEED TO KNOW Prescription opioids can be used to help relieve tmoedhoz-xn-cgqjqp pain and are often prescribed following a [...] opioids abuse (more content not included)... Normal [facility] HEMATOLOGYOrdered By: SYSTEM SYSTEM on 12-19-2023 Basophils/100 [...] 12-19-2023 Albumin [Mass/Vol] 4.3 g/dL Normal 3.3-5.0 [facility] Comment on above: Performed By: #### 2 [id number] #### [facility] [address] [place] [address] Albumin/Globulin (S) [Mass conc ratio] 2.0 Normal 1.1-2.2 [facility] Comment on above: Performed By: #### 2 [id number] #### [facility] [address] [place] [address] ALP [Catalytic activity/Vol] 28 Int._Unit/L Normal 21-98 [facility] Comment on above: Performed By: #### 2 [id number] #### [facility] [address] [place] [address] ALT No additional P-5'-P [Catalytic activity/Vol] 14 Int._Unit/L Normal 6-46 [facility] Comment on above: Performed By: #### 2 837705 #### [facility] [address] [place] [address] AST [Catalytic activity/Vol] 14 Int._Unit/L Normal 5-43 [facility] Comment on above: Performed By: #### 2 935236 #### [facility] [address] [place] [address] Bilirubin [Mass/Vol] 1.0 mg/dL Normal 0.0-1.1 [facility] Comment on above: Performed By: #### 2 923803 #### [facility] [address] [place] [address] Bilirubin.direct [Mass/Vol] 0.1 mg/dL Normal 0.0-0.4 [facility] Comment on above: Performed By: #### 2 286519 #### [facility] [address] [place] [address] Bilirubin.indirect [Mass or moles/Vol] 0.9 mg/dL Normal 0.1-0.9 [facility] Comment on above: Performed By: #### 2 650205 #### [facility] [address] [place] [address] Globulin (S) [Mass/Vol] 2.1 g/dL Normal 1.4-4.0 [facility] Comment on above: Performed By: #### 2 [id number] #### [facility] [address] [place] [address] Protein [Mass/Vol] 6.4 g/dL Normal 6.0-7.8 [facility] Comment on above: Performed By: #### 2 593453 #### [facility] [address] [place] [address] Lipase Levelon 12-19-2023 Lipase [Catalytic activity/Vol] 18 U/L Normal 13-58 [facility] Comment on above: Performed By: #### 2 [id number] #### [facility] [address] [place] [address] PT & PTTon 12-19-2023 aPTT Coag (PPP) [Time] 29.0 second(s) Normal 25.1-36.5 [facility] Comment on above: Result Comment: Para meter [...] the same coagulation reagent and instrumentation as [facility]. Currently there are no coagulation studies available worldwide for children to 14 days, and no normal ranges. Heparin therapeutic range (represented by Anti-Factor Xa activity of 0.2 - 0.4 U/mL) corresponds to PTT of 56.6 - 109.0 sec. Performed By: #### 1 [id number] #### [facility] [address] [place] [address] INR Coag (PPP) [Relative time] 1.05 {INR} Invalid Interpretation Code [facility] Comment on above: Result Comment: INR results are specifically intended to assess patients stabilized on long-term Anticoagulation therapy suggested INR?s ?Less Intensive Anticoagulation? 2.0 ? 3.0 Conventional Range 3.0 ? 4.5 Performed By: #### 1 [id number] #### [facility] [address] [place] [address] PT Coag (PPP) [Time] 11.8 second(s) Normal 9.4-12.5 [facility] Comment on above: Result Comment: 15 d [...] the same coagulation reagent and instrumentation as [facility]. Currently there are no coagulation studies available worldwide for children to 14 days, and no normal ranges. Performed By: #### 1 [id number] #### [facility] [address] [place] [address] Troponin 0 Hr.on 12-19-2023 Troponin HS 2.70 pg/mL Low 10.10-27.10 [facility] Comment on above: Result Comment: The 95% CI (Confidence Interval) PPV (Positive Predictive Value) for myocardial infarction in females is 38 pg/mL, in males 51 pg/mL. The results should be used in conjunction with clinical conditions of myocardial infarction. (Access High Sensitivity Troponin I Instructions For Use, Carlos Jefferson, December 2017) Performed By: #### 1 [id number] #### [facility] [address] [place] [address] Troponin 1 Hr.on 12-19-2023 Troponin HS 2.40 pg/mL Low 10.10-27.10 [facility] Comment on above: Order Comment: 1809 Result Comment: The 95% CI (Confidence Interval) PPV (Positive Predictive Value) for myocardial infarction in females is 38 pg/mL, in males 51 pg/mL. The results should be used in conjunction with clinical conditions of myocardial infarction. (Access High Sensitivity Troponin I Instructions For Use, [facility], December 2017) Performed By: #### 1 [id number] #### [facility] [address] [place] [address] eGFRon 12-19-2023 eGFR 80 mL/min/1.73 m2 Normal >=59 [facility] Comment on above: Order Comment: Order added by Discern Expert. Performed By: #### 1 [id number] #### [facility] [address] [place] [address] [facility] 3D [place] CA Don 04-08-2022 [facility] 3D [place] CAD Patient: LORA MARTINS Exam Date: 04/08/2022 : 1980 Gender:F Ordering : KP EPPERSON [facility] Admission #: [id number] Family : Order #: [id number] CLICK HERE TO VIEW EXAM RADIOLOGY REPORT [...] pancreatic cancer at age 55. LOCATION: [facility] BREAST COMPOSITION: Heterogeneously dense,which may obscure small [...] MD on 04/08/2022 at 15:21 Normal [facility] US BREAST [place] LIMITEDon 12-0 US BREAST [place] LIMITED Patient: LORA MARTINS Exam Date: 04/08/2022 : 1980 Gender:F Ordering : KP EPPERSON [facility] Admission #: [id number] Family : Order #: [id number] CLICK HERE TO VIEW EXAM RADIOLOGY REPORT [...] pancreatic cancer at age 55. LOCATION: [facility] BREAST COMPOSITION: Heterogeneously dense,which may obscure small [...] MD on 04/08/2022 at 15:21 Normal [facility] BUNon 03-23-2022 Urea nitrogen [Mass/Vol] 18.0 mg/dL Normal 7.0-18.0 [facility] Comment on above: Performed By: #### B UN, CREA #### [facility] [address] [place] [address] Dr. Jackie Bhardwaj CBC AUTO DIFFon 03-23-2022 BASO # 0.0 103/ul Normal 0.0-0.1 [facility] Comment on above: Performed By: #### P TT, PT #### [facility] [address] [place] [address] Dr. Jackie Bhardwaj Basophils/100 WBC (Bld) 0.2 % Normal 0.2-2.0 [facility] Comment on above: Performed By: #### P TT, PT #### [facility] [address] [place] [address] Dr. Jackie Bhardwaj EO # 0.1 103/ul Normal 0.0-0.7 [facility] Comment on above: Performed By: #### P TT, PT #### [facility] [address] [place] [address] Dr. Jackie Bhardwaj Eosinophils/100 WBC (Bld) 0.4 % Critically low 0.9-7.0 [facility] Comment on above: Performed By: #### P TT, PT #### [facility] [address] [place] [address] Dr. Jackie Bhardwaj Erythrocyte distribution width (RBC) [Ratio] 12.8 % Normal 11.0-15.0 [facility] Comment on above: Performed By: #### P TT, PT #### [facility] [address] [place] [address] Dr. Jackie Bhardwaj Hematocrit (Bld) [Volume fraction] 30.7 % Critically low 36.0-48.0 [facility] Comment on above: Performed By: #### P TT, PT #### [facility] [address] [address] [address] Jackie Bhardwaj Hemoglobin (Bld) [Mass/Vol] 10.3 g/dL Critically low 12.0-16.0 [facility] Comment on above: Performed By: #### P TT, PT #### [facility] [address] [address] [address] Jackie Bhardwaj IG # 0.04 10e3/ul Critically high 0.00-0.03 [facility] Comment on above: Performed By: #### P TT, PT #### [facility] [address] [address] [address] Jackie Bhardwaj IG % 0.3 % Normal 0.0-0.5 [facility] Comment on above: Performed By: #### P TT, PT #### [facility] [address] [place] [address] Dr. Jackie Bhardwaj LYMPH # 2.7 103/ul Normal 1.2-3.8 [facility] Comment on above: Performed By: #### P TT, PT #### [facility] [address] [address] [address] Jackie Bhardwaj Lymphocytes/100 WBC (Bld) 21.0 % Normal 20.5-60.0 [facility] Comment on above: Performed By: #### P TT, PT #### [facility] [address] [address] [address] Jackie Bhardwaj MANUAL DIFF REQ NO Normal [facility] Comment on above: Performed By: #### P TT, PT #### [facility] [address] [address] [address] Jackie Bhardwaj MCH (RBC) [Entitic mass] 30.7 pg Normal 26.7-34.0 [facility] Comment on above: Performed By: #### P TT, PT #### [facility] [address] [place] [address] Dr. Jackie Bhardwaj MCHC (RBC) [Mass/Vol] 33.6 g/dL Normal 29.9-35.2 [facility] Comment on above: Performed By: #### P TT, PT #### [facility] [address] [place] [address] Dr. Jackie Bhardwaj MCV (RBC) [Entitic vol] 91.6 fL Normal 81.0-99.0 [facility] Comment on above: Performed By: #### P TT, PT #### [facility] [address] [place] [address] Dr. Jackie Bhardwaj MONO # 0.8 103/ul Normal 0.3-0.8 [facility] Comment on above: Performed By: #### P TT, PT #### [facility] [address] [place] [address] Dr. Jackie Bhardwaj Monocytes/100 WBC (Bld) 6.2 % Normal 1.7-12.0 [facility] Comment on above: Performed By: #### P TT, PT #### [facility] [address] [place] [address] Dr. Jackie Bhardwaj NEUT # 9.2 103/ul Critically high 1.4-6.5 [facility] Comment on above: Performed By: #### P TT, PT #### [facility] [address] [place] [address] Dr. Jackie Bhardwaj Neutrophils/100 WBC (Bld) 71.9 % Normal 43.0-75.0 [facility] Comment on above: Performed By: #### P TT, PT #### [facility] [address] [place] [address] Dr. Jackie Bhardwaj Platelet mean volume (Bld) [Entitic vol] 11.2 fL Normal 9.5-13.5 [facility] Comment on above: Performed By: #### P TT, PT #### [facility] [address] [place] [address] Dr. Jackie Bhardwaj PLT 135 103/ul Critically low 150-450 [facility] Comment on above: Performed By: #### P TT, PT #### [facility] [address] [place] [address] Dr. Jackie Bhardwaj RBC 3.35 106/ul Critically low 4.20-5.40 [facility] Comment on above: Performed By: #### P TT, PT #### [facility] [address] [place] [address] Dr. Jackie Bhardwaj WBC 12.8 103/ul Critically high 4.0-11.0 [facility] Comment on above: Performed By: #### P TT, PT #### [facility] [address] [place] [address] Dr. Jackie Bhardwaj CREATININEon 03-23-2022 Creatinine [Mass/Vol] 0.72 mg/dL Normal 0.55-1.02 [facility] Comment on above: Performed By: #### B UN, CREA #### [facility] [address] [place] [address] Dr. Jackie Bhardwaj EGFR-AF VENEZUELAN >60 Normal >=60 [facility] Comment on above: Performed By: #### B UN, CREA #### [facility] [address] [place] [address] Dr. Jackie Bhardwaj EGFR-NON AF VENEZUELAN >60 Normal >=60 [facility] Comment on above: Performed By: #### B UN, CREA #### [facility] [address] [place] [address] Dr. Jackie Bhardwaj ANTIBODY ID PANELon 03-22-20 22 ANTIBODY ID PANEL Antibody ID Anti-D Blood Bank Notes testing performed at [facility] reference lab [place] [facility] Comment on above: Performed By: #### P TT, PT #### [facility] [address] [place] [address] Dr. Jackie Bhardwaj URon 03-22-2022 , QUAL Negative Normal NEGATIVE [facility] Comment on above: Performed By: #### P TT, PT #### [facility] [address] [place] [address] Dr. Jackie Bhardwaj [facility] SARS-CoV-2 (COVID-19) RNA JOHN+probe Ql (Unsp spec) Not detected Normal NOT DETECTED [facility] Comment on above: Result Comment: This test is not yet approved or cleared by the [place] FDA. When there are no FDA-approved or cleared tests available, and other criteria are met, FDA can make tests available under an emergency access mechanism called an Emergency Use Authorization (EUA). The EUA for this test is supported by the [place] of Health and Human Service's (HHS's) declaration [...] SARS-CoV-2. Performed By: #### C VDTB #### [facility] [address] [place] [address] Dr. Jackie Bhardwaj TYPE AND SCREENon 03-18-2022 TYPE AND SCREEN Negative Normal [facility] Comment on above: Performed By: #### P TT, PT #### [facility] [address] [place] [address] Dr. Jackie Bhardwaj LIVER PROFILEon 03-10-2022 Albumin [Mass/Vol] 4.1 g/dL Normal 3.4-5.0 [facility] Comment on above: Performed By: #### L IVER, BMP #### [facility] [address] [place] [address] Dr. Jackie Bhardwaj Albumin/Globulin [Mass ratio] 1.6 {ratio} Normal [facility] Comment on above: Performed By: #### L IVER, BMP #### [facility] [address] [place] [address] Dr. Jackie Bhardwaj ALP [Catalytic activity/Vol] 41 U/L Critically low 46-116 [facility] Comment on above: Performed By: #### L IVER, BMP #### [facility] [address] [place] [address] Dr. Jackie Bhardwaj ALT [Catalytic activity/Vol] 16 U/L Normal 14-59 [facility] Comment on above: Performed By: #### L IVER, BMP #### [facility] [address] [place] [address] Dr. Jackie Bhardwaj AST [Catalytic activity/Vol] 14 U/L Critically low 15-37 [facility] Comment on above: Performed By: #### L IVER, BMP #### [facility] [address] [place] [address] Dr. Jackie Bhardwaj BILI, CONJUGATED 0.1 mg/dL Normal 0.0-0.2 [facility] Comment on above: Performed By: #### L IVER, BMP #### [facility] [address] [place] [address] Dr. Jackie Bhardwaj Bilirubin [Mass/Vol] 0.3 mg/dL Normal 0.2-1.0 [facility] Comment on above: Performed By: #### L IVER, BMP #### [facility] [address] [place] [address] Dr. Jackie Bhardwaj Globulin (S) [Mass/Vol] 2.5 g/dL Normal [facility] Comment on above: Performed By: #### L IVER, BMP #### [facility] [address] [place] [address] Dr. Jackie Bhardwaj Protein [Mass/Vol] 6.6 g/dL Normal 6.4-8.2 [facility] Comment on above: Performed By: #### L IVER, BMP #### [facility] [address] [place] [address] Dr. Jackie Bhardwaj PROF CHEM 8 (BAS METB)on Anion gap [Moles/Vol] 11.6 mmol/L Normal [facility] Comment on above: Performed By: #### L IVER, BMP #### [facility] [address] [place] [address] Dr. Jackie Bhardwaj Calcium [Mass/Vol] 8.8 mg/dL Normal 8.5-10.1 [facility] Comment on above: Performed By: #### L IVER, BMP #### [facility] [address] [address] [address] Jackie Bhardwaj Chloride [Moles/Vol] 102 mmol/L Normal 98-107 [facility] Comment on above: Performed By: #### Robin MANSFIELD, BMP #### [facility] [address] [place] [address] Dr. Jackie Bhardwaj CO2 [Moles/Vol] 28.9 mmol/L Normal 21.0-32.0 [facility] Comment on above: Performed By: #### Robin MANSFIELD, BMP #### [facility] [address] [place] [address] Dr. Jackie Bhardwaj Creatinine [Mass/Vol] 0.78 mg/dL Normal 0.55-1.02 [facility] Comment on above: Performed By: #### Robin MANSFIELD, BMP #### [facility] [address] [place] [address] Dr. Jackie Bhardwaj EGFR-AF VENEZUELAN >60 Normal >=60 [facility] Comment on above: Performed By: #### Robin MANSFIELD, BMP #### [facility] [address] [place] [address] Dr. Jackie Bhardwaj EGFR-NON AF VENEZUELAN >60 Normal >=60 [facility] Comment on above: Performed By: #### Robin MANSFIELD, BMP #### [facility] [address] [place] [address] Dr. Jackie Bhardwaj Glucose [Mass/Vol] 81 mg/dL Normal 74-106 [facility] Comment on above: Performed By: #### Robin MANSFIELD, BMP #### [facility] [address] [place] [address] Dr. Jackie Bhardwaj Potassium [Moles/Vol] 3.5 mmol/L Normal 3.5-5.1 [facility] Comment on above: Performed By: #### Robin MANSFIELD, BMP #### [facility] [address] [place] [address] Dr. Jackie Bhardwaj Sodium [Moles/Vol] 139 mmol/L Normal 136-145 [facility] Comment on above: Performed By: #### Robin MANSFIELD, BMP #### [facility] [address] [place] [address] Dr. Jackie Bhardwaj Urea nitrogen [Mass/Vol] 21.0 mg/dL Critically high 7.0-18.0 [facility] Comment on above: Performed By: #### L SHYLA, BMP #### [facility] [address] [place] [address] Dr. Jackie Bhardwaj Urea nitrogen/Creatinine [Mass ratio] 26.9 mg/mg Normal [facility] Comment on above: Performed By: #### L SHYLA, BMP #### [facility] [address] [place] [address] Dr. Jackie Bhardwaj PROTIMEon 03-10-2022 INR Coag (PPP) [Relative time] 0.98 {INR} Normal [facility] Comment on above: Performed By: #### P TT, PT #### [facility] [address] [place] [address] Dr. Jackie Bhardwaj INR GUIDELINES SEE BELOW Normal [facility] Comment on above: Result Comment: BILLY RED INR: 2.0 - 3.0 CONDITIONS NOT LISTED BELOW 2.5 - 3.5 FOR PROSTHETIC HEART VALVE REPLACEMENT 2.5 - 3.5 RECURRENT THROMBOSIS Performed By: #### P TT, PT #### [facility] [address] [place] [address] Dr. Jackie Bhardwaj PT Coag (PPP) [Time] 10.6 s Normal 9.0-11.6 [facility] Comment on above: Performed By: #### P TT, PT #### [facility] [address] [place] [address] Dr. Jackie Bhardwaj PTTon 03-10-2022 aPTT Coag (Bld) [Time] 26.3 s Normal 22.3-36.2 [facility] Comment on above: Performed By: #### P TT, PT #### [facility] [address] [place] [address] Dr. Jackie Bhardwaj CBC AUTO DIFFon 03-09-2022 BASO # 0.1 103/ul Normal 0.0-0.1 [facility] Comment on above: Performed By: #### P TT, PT #### [facility] [address] [place] [address] Dr. Jackie Bhardwaj Basophils/100 WBC (Bld) 0.6 % Normal 0.2-2.0 [facility] Comment on above: Performed By: #### P TT, PT #### [facility] [address] [place] [address] Dr. Jackie Bhardwaj EO # 0.2 103/ul Normal 0.0-0.7 [facility] Comment on above: Performed By: #### P TT, PT #### [facility] [address] [place] [address] Dr. Jackie Bhardwaj Eosinophils/100 WBC (Bld) 1.8 % Normal 0.9-7.0 [facility] Comment on above: Performed By: #### P TT, PT #### [facility] [address] [place] [address] Dr. Jackie Bhardwaj Erythrocyte distribution width (RBC) [Ratio] 12.7 % Normal 11.0-15.0 [facility] Comment on above: Performed By: #### P TT, PT #### [facility] [address] [place] [address] Dr. Jackie Bhardwaj Hematocrit (Bld) [Volume fraction] 39.1 % Normal 36.0-48.0 [facility] Comment on above: Performed By: #### P TT, PT #### [facility] [address] [place] [address] Dr. Jackie Bhardwaj Hemoglobin (Bld) [Mass/Vol] 12.8 g/dL Normal 12.0-16.0 [facility] Comment on above: Performed By: #### P TT, PT #### [facility] [address] [place] [address] Dr. Jackie Bhardwaj IG # 0.03 10e3/ul Normal 0.00-0.03 [facility] Comment on above: Performed By: #### P TT, PT #### [facility] [address] [place] [address] Dr. Jackie Bhardwaj IG % 0.3 % Normal 0.0-0.5 [facility] Comment on above: Performed By: #### P TT, PT #### [facility] [address] [place] [address] Dr. Jackie Bhardwaj LYMPH # 3.5 103/ul Normal 1.2-3.8 [facility] Comment on above: Performed By: #### P TT, PT #### [facility] [address] [place] [address] Dr. Jackie Bhardwaj Lymphocytes/100 WBC (Bld) 32.7 % Normal 20.5-60.0 [facility] Comment on above: Performed By: #### P TT, PT #### [facility] [address] [place] [address] Dr. Jackie Bhardwaj MANUAL DIFF REQ NO Normal [facility] Comment on above: Performed By: #### P TT, PT #### [facility] [address] [place] [address] Dr. Jackie Bhardwaj MCH (RBC) [Entitic mass] 30.7 pg Normal 26.7-34.0 [facility] Comment on above: Performed By: #### P TT, PT #### [facility] [address] [place] [address] Dr. Jackie Bhardwaj MCHC (RBC) [Mass/Vol] 32.7 g/dL Normal 29.9-35.2 [facility] Comment on above: Performed By: #### P TT, PT #### [facility] [address] [place] [address] Dr. Jackie Bhardwaj MCV (RBC) [Entitic vol] 93.8 fL Normal 81.0-99.0 [facility] Comment on above: Performed By: #### P TT, PT #### [facility] [address] [place] [address] Dr. Jackie Bhardwaj MONO # 0.7 103/ul Normal 0.3-0.8 [facility] Comment on above: Performed By: #### P TT, PT #### [facility] [address] [place] [address] Dr. Jackie Bhardwaj Monocytes/100 WBC (Bld) 6.3 % Normal 1.7-12.0 [facility] Comment on above: Performed By: #### P TT, PT #### [facility] [address] [address] [address] Jackie Bhardwaj NEUT # 6.2 103/ul Normal 1.4-6.5 [facility] Comment on above: Performed By: #### P TT, PT #### [facility] [address] [address] [address] Jackie Bhardwaj Neutrophils/100 WBC (Bld) 58.3 % Normal 43.0-75.0 [facility] Comment on above: Performed By: #### P TT, PT #### [facility] [address] [address] [address] Jackie Bhardwaj Platelet mean volume (Bld) [Entitic vol] 11.5 fL Normal 9.5-13.5 [facility] Comment on above: Performed By: #### P TT, PT #### [facility] [address] [place] [address] Dr. Jackie Bhardwaj PLT 167 103/ul Normal 150-450 [facility] Comment on above: Performed By: #### P TT, PT #### [facility] [address] [place] [address] Dr. Jackie Bhardwaj RBC 4.17 106/ul Critically low 4.20-5.40 [facility] Comment on above: Performed By: #### P TT, PT #### [facility] [address] [address] [address] Jackie Bhardwaj WBC 10.6 103/ul Normal 4.0-11.0 [facility] Comment on above: Performed By: #### P TT, PT #### [facility] [address] [address] [address] Jackie Bhardwaj IRONon 03-09-2022 Iron [Mass/Vol] 73.0 ug/dL Normal 50.0-170.0 [facility] Comment on above: Performed By: #### P TT, PT #### [facility] [address] [address] [address] Jackie Bhardwaj PREG HCG QUALon 02-01-2022 , QUAL Negative Normal NEGATIVE [facility] Comment on above: Performed By: #### P REG #### [facility] [address], [place] [address] Dr. Jackie Bhardwaj , QUAL Negative Normal NEGATIVE [facility] Comment on above: Result Comment: Prev iously reported as: [id number] On 02/01/2022 06:45 By DM9 Performed By: #### P TT, PT #### [facility] [id number] Jackie Bhardwaj Covid-19 PCR (CVDTBH)on 01-08 SARS-CoV-2 (COVID-19) RNA JOHN+probe Ql (Unsp spec) Not detected Normal NOT DETECTED [facility] Comment on above: Result Comment: This test is not yet approved or cleared by the [place] FDA. When there are no FDA-approved or cleared tests available, and other criteria are met, FDA can make tests available under an emergency access mechanism called an Emergency Use Authorization (EUA). The EUA for this test is supported by the [place] of Health and Human Service's (HHS's) declaration [...] SARS-CoV-2. Performed By: #### C VDTBH #### [facility] [address], [place] [address] Dr. Jackie Bhardwaj Covid-19 PCR (CVDTBH)on 12-09 SARS-CoV-2 (COVID-19) RNA JOHN+probe Ql (Unsp spec) Not detected Normal NOT DETECTED [facility] Comment on above: Result Comment: This test is not yet approved or cleared by the [place] FDA. When there are no FDA-approved or cleared tests available, and other criteria are met, FDA can make tests available under an emergency access mechanism called an Emergency Use Authorization (EUA). The EUA for this test is supported by the [employer] [place] of Health and Human Service's (HHS's) declaration [...] Performed By: #### P TT, PT #### [facility] [address] [place] [address] Dr. Jackie Bhardwaj CBC AUTO DIFFon 12-29-2021 BASO # 0.1 103/ul Normal 0.0-0.1 [facility] Comment on above: Performed By: #### C BC #### [facility] [address] [place] [address] Dr. Jackie Bhardwaj Basophils/100 WBC (Bld) 0.4 % Normal 0.2-2.0 [facility] Comment on above: Performed By: #### C BC #### [facility] [address] [place] [address] Dr. Jackie Bhardwaj EO # 0.2 103/ul Normal 0.0-0.7 [facility] Comment on above: Performed By: #### C BC #### [facility] [address] [place] [address] Dr. Jackie Bhardwaj Eosinophils/100 WBC (Bld) 1.6 % Normal 0.9-7.0 [facility] Comment on above: Performed By: #### C BC #### [facility] [address] [place] [address] Dr. Jackie Bhardwaj Erythrocyte distribution width (RBC) [Ratio] 12.9 % Normal 11.0-15.0 [facility] Comment on above: Performed By: #### C BC #### [facility] [address] [place] [address] Dr. Jackie Bhardwaj Hematocrit (Bld) [Volume fraction] 38.5 % Normal 36.0-48.0 [facility] Comment on above: Performed By: #### C BC #### [facility] [address] [place] [address] Dr. Jackie Bhardwaj Hemoglobin (Bld) [Mass/Vol] 12.8 g/dL Normal 12.0-16.0 [facility] Comment on above: Performed By: #### C BC #### [facility] [address] [place] [address] Dr. Jackie Bhardwaj IG # 0.03 10e3/ul Normal 0.00-0.03 [facility] Comment on above: Performed By: #### C BC #### [facility] [address] [place] [address] Dr. Jackie Bhardwaj IG % 0.3 % Normal 0.0-0.5 [facility] Comment on above: Performed By: #### C BC #### [facility] [address] [place] [address] Dr. Jackie Bhardwaj LYMPH # 3.9 103/ul Critically high 1.2-3.8 [facility] Comment on above: Performed By: #### C BC #### [facility] [address] [place] [address] Dr. Jackie Bhardwaj Lymphocytes/100 WBC (Bld) 33.9 % Normal 20.5-60.0 [facility] Comment on above: Performed By: #### C BC #### [facility] [address] [place] [address] Dr. Jackie Bhardwaj MANUAL DIFF REQ NO Normal [facility] Comment on above: Performed By: #### C BC #### [facility] [address] [place] [address] Dr. Jackie Bhardwaj MCH (RBC) [Entitic mass] 31.4 pg Normal 26.7-34.0 [facility] Comment on above: Performed By: #### C BC #### [facility] [address] [address] [address] Jackie Bhardwaj MCHC (RBC) [Mass/Vol] 33.2 g/dL Normal 29.9-35.2 [facility] Comment on above: Performed By: #### C BC #### [facility] [address] [place] [address] Dr. Jackie Bhardwaj MCV (RBC) [Entitic vol] 94.4 fL Normal 81.0-99.0 [facility] Comment on above: Performed By: #### C BC #### [facility] [address] [place] [address] Dr. Jackie Bhardwaj MONO # 0.7 103/ul Normal 0.3-0.8 [facility] Comment on above: Performed By: #### C BC #### [facility] [address] [place] [address] Dr. Jackie Bhardwaj Monocytes/100 WBC (Bld) 5.8 % Normal 1.7-12.0 [facility] Comment on above: Performed By: #### C BC #### [facility] [address] [place] [address] Dr. Jackie Bhardwaj NEUT # 6.6 103/ul Critically high 1.4-6.5 [facility] Comment on above: Performed By: #### C BC #### [facility] [address] [place] [address] Dr. Jackie Bhardwaj Neutrophils/100 WBC (Bld) 58.0 % Normal 43.0-75.0 [facility] Comment on above: Performed By: #### C BC #### [facility] [address] [place] [address] Dr. Jackie Bhardwaj Platelet mean volume (Bld) [Entitic vol] 11.4 fL Normal 9.5-13.5 [facility] Comment on above: Performed By: #### C BC #### [facility] [address] [place] [address] Dr. Jackie Bhardwaj PLT 168 103/ul Normal 150-450 [facility] [facility] Comment on above: Performed By: #### C BC #### [facility] [address] [place] [address] Dr. Jackie Bhardwaj RBC 4.08 106/ul Critically low 4.20-5.40 [facility] Comment on above: Performed By: #### C BC #### [facility] [address] [address] [address] Jackie Bhardwaj WBC 11.4 103/ul Critically high 4.0-11.0 [facility] Comment on above: Performed By: #### C BC #### [facility] [address] [address] [address] Jackie Bhardwaj IRONon 12-29-2021 Iron [Mass/Vol] 41.0 ug/dL Critically low 50.0-170.0 [facility] Comment on above: Performed By: #### P TT, PT #### [facility] [address] [place] [address] Dr. Jackie Bhardwaj US VAC ASST BX BRST LT W CLI Jaya 10-02-2021 US VAC ASST BX BRST LT W CLIP Begin Addendum #1 COLLECTED DATE/TIME: 09/22/2021 09:43 EDT Final Diagnosis Report for [facility] [place] ULTRASOUND GUIDED CORE BIOPSY, LEFT BREAST [...] after pathology results are available. 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 on 09/22/2021 at 10:14 Normal [facility] Complete Blood Count Auto Di ffon 03-03-2021 Basophils (Bld) [#/Vol] 0.1 10*3/uL Normal 0.0-0.2 [facility] Comment on above: Result Comment: PERF ORMED BY: [place] [address] PATHOLOGIST DEBRIDGING MACHINE OPERATOR MARANDA HOUSTON M.D. Performed By: #### C MP, CBC #### [facility] [address] [place] [address] [place] Basophils/100 WBC (Bld) 0.4 % Normal . [facility] Comment on above: Performed By: #### C MP, CBC #### [facility] [address] [place] [address] Eosinophils (Bld) [#/Vol] 0.1 10*3/uL Normal 0.0-0.45 [facility] Comment on above: Performed By: #### C MP, CBC #### [facility] [address] [place] [address] Eosinophils/100 WBC (Bld) 1.1 % Normal . [facility] Comment on above: Performed By: #### C MP, CBC #### [address] Erythrocyte distribution width (RBC) [Ratio] 13.4 % Normal 11.9-15.3 [facility] Comment on above: Performed By: #### C MP, CBC #### [address] Hematocrit (Bld) [Volume fraction] 40.0 % Normal 34.0-46.4 [facility] Comment on above: Performed By: #### C MP, CBC #### [address] Hemoglobin (Bld) [Mass/Vol] 13.3 g/dL Normal 11.8-15.4 [facility] Comment on above: Performed By: #### C MP, CBC #### [address] Lymphocytes (Bld) [#/Vol] 2.4 10*3/uL Normal 1.00-4.8 [facility] Comment on above: Performed By: #### C MP, CBC #### [address] Lymphocytes/100 WBC (Bld) 20.9 % Normal . [facility] Comment on above: Performed By: #### C MP, CBC #### [address] MCH (RBC) [Entitic mass] 30.5 pg Normal 24.7-34.3 [facility] Comment on above: Performed By: #### C MP, CBC #### [address] MCV (RBC) [Entitic vol] 92.0 fL Normal 80-100 [facility] Comment on above: Performed By: #### C MP, CBC #### [address] Mean Corpuscular HGB Conc 33.2 g/dL Normal 32.0-35.0 [facility] Comment on above: Performed By: #### C MP, CBC #### [address] [place] [address] [place] Monocytes (Bld) [#/Vol] 0.7 10*3/uL Normal 0.0-0.8 [facility] Comment on above: Performed By: #### C MP, CBC #### [facility] [address] [place] [address] [place] Monocytes/100 WBC (Bld) 6.5 % Normal . [facility] Comment on above: Performed By: #### C MP, CBC #### [facility] [address] [place] [address] [place] Neutrophils (Bld) [#/Vol] 8.1 10*3/uL High 1.8-7.7 [facility] Comment on above: Performed By: #### C MP, CBC #### [place] [address] [place] Neutrophils/100 WBC (Bld) 71.1 % Normal . [facility] Comment on above: Performed By: #### C MP, CBC #### [facility] [address] [place] [address] [place] Nucleated RBC/100 WBC (Bld) [Ratio] 0.0 % Normal 0-0.5 [facility] Comment on above: Performed By: #### C MP, CBC #### [place] [address] [place] Platelet mean volume (Bld) [Entitic vol] 9.6 fL Normal 6.3-10.7 [facility] Comment on above: Performed By: #### C MP, CBC #### [facility] [address] [place] [address] [place] Platelets (Bld) [#/Vol] 155 10*3/uL Normal 150-450 [facility] Comment on above: Performed By: #### C MP, CBC #### [facility] [address] [place] [address] [place] RBC (Bld) [#/Vol] 4.35 10*6/uL Normal 3.60-5.00 [facility] Comment on above: Performed By: #### C MP, CBC #### [address] WBC (Bld) [#/Vol] 11.3 10*3/uL High 4.5-11.0 [facility] Comment on above: Performed By: #### C MP, CBC #### [address] Comprehensive Metabolic Pane zelda 03-03-2021 Albumin [Mass/Vol] 4.0 g/dL Normal 3.2-5.5 [facility] Comment on above: Performed By: #### C MP, CBC #### [address] Albumin/Globulin [Mass ratio] 1.8 {ratio} Normal [facility] Comment on above: Performed By: #### C MP, CBC #### [address] ALP [Catalytic activity/Vol] 36 U/L Normal 32-92 [facility] Comment on above: Result Comment: PERF ORMED BY: [place] [address] PATHOLOGIST DEBRIDGING MACHINE OPERATOR MARANDA HOUSTON M.D. Performed By: #### C MP, CBC #### [address] ALT [Catalytic activity/Vol] 12 U/L Normal 10-60 [facility] Comment on above: Performed By: #### C MP, CBC #### [address] AST [Catalytic activity/Vol] 15 U/L Normal 10-42 [facility] Comment on above: Performed By: #### C MP, CBC #### [address] Bilirubin [Mass/Vol] 0.5 mg/dL Normal 0.3-1.2 [facility] Comment on above: Performed By: #### C MP, CBC #### [address] Calcium [Mass/Vol] 9.4 mg/dL Normal 8.2-10.2 [facility] Comment on above: Performed By: #### C MP, CBC #### [facility] [address] Chloride [Moles/Vol] 104 mmol/L Normal 95-114 [facility] Comment on above: Performed By: #### C MP, CBC #### [facility] [address] CO2 [Moles/Vol] 24.5 mmol/L Normal 22.0-30.0 [facility] Comment on above: Performed By: #### C MP, CBC #### [address] Creatinine [Mass/Vol] 0.75 mg/dL Normal 0.44-1.03 [facility] Comment on above: Performed By: #### C MP, CBC #### [address] Estimated GFR ( Keri > 60 [facility] Comment on above: Result Comment: GFR estimated reference range: According to KDOQI guidelines, <60 ml/min/1.73m2 is sufficient to diagnose a patient with chronic kidney disease. Performed By: #### C MP, CBC #### [address] Estimated GFR (Non- Am > 60 [facility] Comment on above: Performed By: #### C MP, CBC #### [place] [address] [place] Globulin (S) [Mass/Vol] 2.2 g/dL Normal [facility] Comment on above: Performed By: #### C MP, CBC #### [address] Glucose [Mass/Vol] 96 mg/dL Normal 70-100 [facility] Comment on above: Result Comment: [place] Glucose Reference Range is dependent on time and content of last meal. Glucose of more than 200 mg/dL in a nonstressed, ambulatory subject supports the diagnosis of Diabetes Mellitus. ADA recommended reference range Performed By: #### C MP, CBC #### [facility] [address] [place] [address] [place] Potassium [Moles/Vol] 4.1 mmol/L Normal 3.5-5.1 [facility] Comment on above: Performed By: #### C MP, CBC #### [facility] [address] [place] [address] [place] Protein [Mass/Vol] 6.2 g/dL Normal 6.1-7.9 [facility] Comment on above: Performed By: #### C MP, CBC #### [facility] [address] [place] [address] [facility] Sodium [Moles/Vol] 139 mmol/L Normal 136-146 [facility] Comment on above: Performed By: #### C MP, CBC #### [facility] [address] [place] [address] [place] Urea nitrogen [Mass/Vol] 16 mg/dL Normal 9-23 [facility] Comment on above: Performed By: #### C MP, CBC #### [facility] [address] [id number] [place] Vital Signs Date Time Vital Sign Value Performing Clinician Sarthak umana 12-19-2023 23:00-0400 Diastolic blood pressure 91 mm[Hg] Reza Bedoya [facility] 12-19-2023 23:00-0400 Heart rate 63 /min Reza Bedoya [facility] 12-19-2023 23:00-0400 Hourly Rounding Reza Bedoya [facility] 12-19-2023 23:00-0400 Mean blood pressure 107 mm[Hg] Reza Bedoya [facility] 12-19-2023 23:00-0400 Promise to Return Reza Bedoya [facility] 12-19-2023 23:00-0400 SaO2% (BldA) [Mass fraction] 100 % Reza Bedoya [facility] 12-19-2023 23:00-0400 Systolic blood pressure 140 mm[Hg] Reza Aureliano [facility] 12-19-2023 22:00-0400 Diastolic blood pressure 87 mm[Hg] Reza Aureliano [facility] 12-19-2023 22:00-0400 Heart rate 64 /min Reza Aureliano [facility] 12-19-2023 22:00-0400 Hourly Rounding Reza Aureliano [facility] 12-19-2023 22:00-0400 Mean blood pressure 100 mm[Hg] Reza Aureliano [facility] 12-19-2023 22:00-0400 Promise to Return Reza Aureliano [facility] 12-19-2023 22:00-0400 Systolic blood pressure 127 mm[Hg] Reza Aureliano [facility] 12-19-2023 21:00-0400 Diastolic blood pressure 86 mm[Hg] Reza Aureliano [facility] 12-19-2023 21:00-0400 Heart rate 58 /min Reza Aureliano [facility] 12-19-2023 21:00-0400 Hourly Rounding Reza Aureliano [facility] 12-19-2023 21:00-0400 Mean blood pressure 104 mm[Hg] Reza Aureliano [facility] 12-19-2023 21:00-0400 Promise to Return Reza Aureliano [facility] 12-19-2023 21:00-0400 SaO2% (BldA) [Mass fraction] 99 % Reza Aureliano [facility] 12-19-2023 16:05-0400 Body temperature 98.24 [degF] Reza Bedoya [facility] 12-19-2023 16:05-0400 Heart rate 84 /min Reza Bedoya [facility] 12-19-2023 16:05-0400 Respiratory rate 18 /min Reza Bedoya [facility] Encounters Encounter Date Encounter Type Care Provider Facility Start: 01-19-2024 ambulatory Booker Shelley Facility:[facility] Start: 12-26-2023 End: 12-26-2023 ambulatory SAMUEL MCDERMOTT Not Available Start: 12-22-2023 End: 12-22-2023 ambulatory CYNDI EPPERSON Not Available Start: 12-20-2023 [facility]ulatory [facility] Start: 12-19-2023 End: 12-19-2023 Emergency department patient visit Reza Bedoya [facility] Start: 12-19-2023 ambulatory Reza Bedoya Facility:[facility] Start: 09-17-2022 End: 09-17-[address] WILDER OWENS . Facility:[facility] Start: 04-08-2022 End: 04-09-[address] MIKE JEAN Facility:[facility] Start: 03-22-2022 Encounter for preprocedural laboratory examination DR WILDER OWENS . [facility] Start: 03-22-2022 End: 03-23-2022 Evaluation and management [...] EPPERSON Payers Date Payer Category Payer Unknown [id number] 06.24.84 [id number] 1980 Unknown [id number] .. [id number] 1980 Unknown [id number] ..[id number] 0.1.975443.3.579.259 1978 Unknown [id number] ..[id number] 0.1.984389.3.579.259 1978 Unknown [id number] ..[id number] 0.1.256949.3.579.259 1978 Unknown [id number] ..[id number] 0.1.700056.3.579.2.59 1978 Unknown [id number] ..[id number] 0.1.809581.3.579.2.593 1978 Unknown [id number] 2.16.84 0.1.457297.3.579.2.593 1978 Unknown [id number] 2.16.84 0.1.788123.3.579.2.593 1978 Unknown [id number] 2.16.84 0.1.678627.3.579.2.593 1978 Unknown [id number] 2.16.84 0.1.339129.3.579.2.593 1978 Unknown [id number] 2.16.84 0.1.707448.3.579.2.593 1978 Unknown [id number] 2.16.84 0.1.796202.3.579.2.593 1978 Unknown [id number] 2.16.84 0.1.398302.3.579.2.593 1978 Unknown [id number] 2.16.84 0.1.426189.3.579.2.593 1978 Unknown [id number] 2.16.8 40.1.513327.3.579.2.72 1978 Unknown [id number] 2.16.8 40.1.746984.3.579.2.727 1978 Unknown [id number] 2.16.8 40.1.020987.3.579.2.727 1978 Unknown [id number] 2.16.84 0.1.401194.3.579.2.1259 1978 Unknown [id number] 2.16.84 0.1.946620.3.579.2.1259 1978 Unknown [id number] 2.16.8 40.1.727673.3.579.2.727 1978 Unknown [id number] 2.16.8 40.1.779070.3.579.2.727 1978 Unknown [id number] 2.16.8 40.1.337077.3.579.2.727 1959 Unknown [id number] 1959 Unknown [id number] Social History Date Type Detail Facility Tobacco smoking status No Smoking Status Entered [facility] Sex Assigned At Female [facility] Functional Status Date Assessment Result Facility 12-19-2023 Functional Status N/A [facility] Clinical Note 12-20-2023 Note Date & Type Note Facility 12-20-2023 Note Progress Note-Nurse Patient called requesting Zofran after yesterdays visit. Sent to pharmacy per [facility] Hospital Discharge instructions 12-20-2023 Note Date & Type Note Facility 12-20-2023 Hospital Discharg e instructions Patient Education 12/19/2023 23:16:40 Hepatomegaly, Leon-in-Kndw Hepatomegaly Hepatomegaly is when the liver is [...] asked to do the following: Medicines Take gwat-epm-wnhsmwb and prescription medicines only as told by your doctor. Do not take any new medicine unless your doctor says it is okay. ?This includes vitamins, herbs, supplements, and wngc-pyk-senpxzd medicines. Some of these can hurt your [...] provider. Document Revised: 03/24/2022 Document Reviewed: 03/24/2022 [employer] Patient Education 2022 [employer] 12/19/2023 23:16:40 Abdominal Pain, Adult Abdominal Pain, [...] Follow these instructions at home: Medicines Take zdye-knw-uafanxu and prescription medicines only as told by [...] Watch your condition for any changes. Take noxl-emf-mdhasyn and prescription medicines only as told by [...] provider. Document Revised: 06/13/2020 Document Reviewed: 09/03/2019 [employer] Patient Education 2022 [employer] Follow Up Care 12/19/2023 16:03:37 With:Booker Shelley Address: [address], [address] [phone] Business (1) When:12/22/2023 With:CYNDI EPPERSON Address: [address] [place] [address] [phone] Business (1) When:Within 3 Day(s) [facility] Clinical Note 12-19-2023 Note Date & [...] to do the following: Medicines ? Take oijk-oyl-bhkluta and prescription medicines only as told by your doctor. ? Do not take any new medicine unless your doctor says it is okay. ? This includes vitamins, herbs, supplements, and ghrw-tam-nmtjlrl medicines. Some of these can hurt your [...] provider. Document Revised: 03/24/2022 Document Reviewed: 03/24/2022 [employer] Patient Education ? 2022 [employer] Abdominal Pain, Adult Pain in the [...] these instructions at home: Medicines ? Take xlva-zol-qcsqngx and prescription medicines only as told by [...] tar. ? You (more content not included)... [facility] Evaluation + Plan note Note Date & Type Note Facility Evaluation + Plan note No data available for this section [facility] Progress note Note Date & Type Note Facility Progress note No data available for this section [facility] Summary Purpose Family History No Family [...] section and content) DATE CREATED AUTHOR 06/02/2021 [facility] DATE CREATED AUTHOR AUTHOR'S ORGANIZ ATION 09/20/2022 [facility] DATE CREATED AUTHOR AUTHOR'S ORGANIZ ATION 12/20/2023 [facility] DATE CREATED AUTHOR AUTHOR'S ORGANIZ ATION 12/21/2023 [facility] DATE CREATED AUTHOR AUTHOR'S ORGANIZ ATION 12/26/2023 [facility] EPIC DATE CREATED AUTHOR AUTHOR'S ANEUDY KIRBY 01/01/2024 [facility] Patient Care team informtimothyo n (unrecognized section and content) Personnel Name: RAHDA KP CYNDI J Address: Address: [address] [place] [address] FOR RECORDS PERTAINING TO PATIENTS WHO ARE [...] BE BASED ON THE PRIMARY CLINICAL RECORDS. [facility] [employer] provides no warranty or guarantee of the accuracy or completeness of information in this document.
[2024-01-09 20:47] VITALS: BP 168/117; PULSE 69; TEMP 36.6; O2SAT 99; BMI 19.9
--- NOTE | 2024-01-09 20:56 | NUTR.NU ---
PT SCHEDULED FOR COLONOSCOPY IN THE MORNING FOR ANOREXIA. PT STATES STARTED BOWEL PREP OF DULCOLAX AND MIRALAX AT 2 PM WITH NO RESULTS AND C/O INCREASED NAUSEA
--- NOTE | 2024-01-09 21:17 | XR_ITS ---
The [address] [address] Patient Name: LORA MARTINS MRN: [id number] date: 1980 Sex: F Assigned Patient Location: ER Current Patient Location: ER Accession/Order Number: [id number] Exam Date: 01/09/2024 21:47 Report Date: 01/09/2024 23:30 At the request of: GERMAN CRESPO Procedure: XR acute abdomen series EXAM: XR acute abdomen series HISTORY: abd pain COMPARISON: None. TECHNIQUE: One view of the chest and 2 views of the abdomen were obtained. FINDINGS: The cardiac silhouette is normal in size. The lungs are clear. There is no significant pneumothorax or pleural effusion. No acute osseous abnormality is seen. There are multiple air-fluid levels within nondilated loops of bowel. No intraperitoneal free air is seen. XR/XR acute abdomen series IMPRESSION: 1. No acute cardiopulmonary abnormality. 2. Multiple air-fluid levels within nondilated loops of bowel. This likely represents enteritis and diarrhea. Electronically authenticated by: Evie CONNELL Date: 01/09/2024 23:30
[2024-01-09] MEDS: 0.9 % SODIUM CHLORIDE 1,000 ML 999 ML IV (21:30)
[2024-01-09] MEDS: ONDANSETRON PF 4 MG/2 ML VIAL IV (21:30)
[2024-01-09 21:32] LABS: Basophils Absolute Auto 0.1 10^3/uL (0.0-0.1); Basophils Percent Auto 0.5 % (0.2-2.0); Eosinophils Absolute Auto 0.1 10^3/uL (0.0-0.7); Hematocrit 40.2 % (36.0-48.0); Immature Granulocytes Abs Auto 0.03 10^3/uL (0.00-0.03); Immature Granulocytes Pct Auto 0.3 % (0.0-0.5); Lymphocytes Absolute Auto 3.3 10^3/uL (1.2-3.8); Lymphocytes Percent Auto 30.3 % (20.5-60.0); Mean Corpuscular HGB Conc 34.8 g/dL (29.9-35.2); Mean Corpuscular Hemoglobin 31.6 pg (26.7-34.0); Mean Corpuscular Volume 90.7 fL (81.0-99.0); Mean Platelet Volume 10.8 fL (9.5-13.5); Monocytes Absolute Auto 0.7 10^3/uL (0.3-0.8); Monocytes Percent Auto 6.2 % (1.7-12.0); Neutrophils Absolute Auto 6.7 10^3/uL (1.4-6.5); Neutrophils Percent Auto 61.7 % (43.0-75.0); Platelet Count 165 10^3/uL (150-450); Red Blood Count 4.43 10^6/uL (4.20-5.40); Red Cell Distribution Width 11.9 % (11.0-15.0); White Blood Count 10.9 10^3/uL (4.0-11.0)
[2024-01-09 21:50] LABS: Alanine Aminotransferase 17 U/L (14-59); Albumin Globulin Ratio 1.4; Albumin Level 4.2 g/dL (3.4-5.0); Alkaline Phosphatase 42 U/L (46-116); Anion Gap 9.8; Aspartate Amino Transferase 12 U/L (15-37); BUN Creatinine Ratio 22.6; Bilirubin Total 0.7 mg/dL (0.2-1.0); Calcium 8.9 mg/dL (8.5-10.1); Carbon Dioxide 31.8 mmol/L (21.0-32.0); Chloride 103 mmol/L (98-107); Estimated GFR (African America >60 (>=60); Estimated GFR (Non-African Ame >60 (>=60); Glucose 88 mg/dL (74-106); Potassium 3.6 mmol/L (3.5-5.1); Sodium 141 mmol/L (136-145); Total Protein 7.2 g/dL (6.4-8.2)
[2024-01-10 00:05] VITALS: BP 160/98
--- NOTE | 2024-01-10 00:19 | ED_ITS ---
HPI HPI - General Adult General Chief complaint: Nausea/Vomiting/Diarrhea Stated complaint: NAUSEA, SHAKING Time Seen by Provider: 01/09/24 20:51 Source: patient Mode of arrival: walk-in Limitations: no limitations History of Present Illness HPI narrative: 43-year-old female to the emergency department with chief complaint of nausea, abdominal cramping. Patient reports she has had some chronic abdominal cramping, nausea, vomiting. She has been taking Bentyl, Zofran, omeprazole for this. She has a colonoscopy planned for tomorrow. She took the prep and has increased cramping tonight. She did take her Bentyl tonight. No other complaints at this time. Otherwise at her baseline health. Related Data Home Medications ?Medication ?Instructions ?Recorded ?Confirmed dicyclomine 20 mg tablet 20 mg PO QID PRN abdominal pain 12/30/23 01/09/24 omeprazole 20 mg capsule,delayed 20 mg PO DAILY 12/30/23 01/09/24 release ondansetron 4 mg disintegrating 4 mg PO Q8H PRN nausea and vomiting 12/30/23 01/09/24 tablet tramadol 50 mg tablet 50 mg PO Q6H PRN pain 12/30/23 12/30/23 Allergies Allergy/AdvReac Type Severity Reaction Status Date / Time amoxicillin Allergy Intermediate Hives Verified 12/30/23 11:11 penicillin G Allergy Unknown Rash Verified 12/30/23 11:11 Opioids - Morphine Analogues AdvReac Intermediate Vomiting Verified 12/30/23 11:11 Opioid HPI Opioid Management Most Recent Opioid Data: Last Pain Scale 6 12/14/23 23:54 Review of Systems ROS Status of ROS 10 or more systems reviewed and unremark able except as noted in history and below PFSH PFS Medical History (Updated 01/10/24 @ 00:01 by Hans Latham MD) Dysphagia ?R13.10 - Dysphagia, unspecified (ICD-10) GERD (gastroesophageal reflux disease) ?K21.9 - Gastro-esophageal reflux disease without esophagitis (ICD-10) Hepatomegaly ?R16.0 - Hepatomegaly, not elsewhere classified (ICD-10) Abdominal pain ?R10.9 - Unspecified abdominal pain (ICD-10) Surgical History (Updated 01/02/24 @ 11:22 by Mala Romero RN) History of salpingectomy ?Z90.79 - Acquired absence of other genital organ(s) (ICD-10) History of tonsillectomy ?Z90.89 - Acquired absence of other organs (ICD-10) H/O: hysterectomy ?Z90.710 - Acquired absence of both cervix and uterus (ICD-10) Family History (Updated 12/30/23 @ 11:10 by Tanya Bryant) Mother Family history of cancer Brother Family history of diabetes mellitus FH: mental illness Social History (Updated 01/02/24 @ 11:20 by Mala Romero RN) Within the past year, how often did you have a drink containing alcohol: monthly or less Smoking status: Former smoker Non-prescribed substance use: denies use Previous occupational history: [employer] Highest level of school completed/degree received: Associate degree: occupational, technical, vocational program Exam Narrative Exam Narrative: VITALS: I have reviewed the triage vital signs. GENERAL: Well developed, well appearing adult in no acute distress. NEURO: Alert and oriented. Moves all extremities. Face is symmetric and expressive. EYES: PERRL. No scleral icterus or conjunctival injection. No discharge. HENT: Normocephalic, atraumatic. Hearing is grossly intact. Nares grossly patent and without discharge. Mucous membranes moist. NECK: No JVD. Patient moves neck without restriction. CARDIO: Rhythm regular. Normal rate. No murmur, rub, or gallop. Pulses equal bilaterally in the upper and lower extremity. No lower extremity edema. PULM: Lungs clear to auscultation in all [place]. No wheezes, rales, or rhonchi. No conversational dyspnea. No splinting, stridor, or accessory muscle use. GI/: Abdomen is soft and non-tender. Normoactive bowel sounds. EXTREMITIES: Symmetric muscle bulk. No joint swelling. No clubbing, cyanosis, or deformity. SKIN: Warm and dry. Normal turgor. No rash or lesions appreciated. PSYCH: Mood, affect, and interaction is appropriate to the setting. Constitutional Vital Signs, click to edit/add: Last Vital Signs Temp 97.8 F 01/09/24 20:47 Pulse 69 01/09/24 20:47 Resp 18 01/09/24 20:47 BP 160/98 H 01/10/24 00:05 Pulse Ox 99 01/09/24 20:47 O2 Del Method Room Air 01/09/24 20:47 Course Vital Signs Vital signs: Vital Signs Temperature 97.8 F 01/09/24 20:47 Pulse Rate 69 01/09/24 20:47 Respiratory Rate 18 01/09/24 20:47 Blood Pressure 168/117 H 01/09/24 20:47 Pulse Oximetry 99 01/09/24 20:47 Oxygen Delivery Method Room Air 01/09/24 20:47 Temperature 97.8 F 01/09/24 20:47 Pulse Rate 69 01/09/24 20:47 Respiratory Rate 18 01/09/24 20:47 Blood Pressure 160/98 H 01/10/24 00:05 Pulse Oximetry 99 01/09/24 20:47 Oxygen Delivery Method Room Air 01/09/24 20:47 Medical Decision Making MDM Narrative Medical decision making narrative: Well-appearing 43-year-old female to the emergency department chief complaint of cramping lower abdominal pain and nausea. Vital stable, the patient is afebrile. Abdominal examination is benign. Basic labs and KUB ordered. Patient agrees this plan. Zofran for symptoms. Abdominal series without any acute findings. Lab work unremarkable. Patient felt improved. Discussed that her abdominal cramping increased tonight and nausea is likely from taking a very large fluid osmotic load and the Bentyl. She will follow-up with her doctor. Return precautions were discussed. All questions were answered. The patient was discharged home. Medical Records Medical records reviewed: Yes I reviewed the patient's medical records Lab Data Lab results reviewed: Yes I reviewed the patient's lab results Labs: Lab Results 01/09/24 Range/Units 21:27 WBC 10.9 (4.0-11.0) 10^3/uL RBC 4.43 (4.20-5.40) 10^6/uL Hgb 14.0 (12.0-16.0) g/dL Hct 40.2 (36.0-48.0) % MCV 90.7 (81.0-99.0) fL MCH 31.6 (26.7-34.0) pg MCHC 34.8 (29.9-35.2) g/dL RDW 11.9 (11.0-15.0) % Plt Count 165 (150-450) 10^3/uL MPV 10.8 (9.5-13.5) fL Neut % (Auto) 61.7 (43.0-75.0) % Lymph % (Auto) 30.3 (20.5-60.0) % [place] % (Auto) 6.2 (1.7-12.0) % Eos % (Auto) 1.0 (0.9-7.0) % Baso % (Auto) 0.5 (0.2-2.0) % Neut # (Auto) 6.7 H (1.4-6.5) 10^3/uL Lymph # (Auto) 3.3 (1.2-3.8) 10^3/uL [place] # (Auto) 0.7 (0.3-0.8) 10^3/uL Eos # (Auto) 0.1 (0.0-0.7) 10^3/uL Baso # (Auto) 0.1 (0.0-0.1) 10^3/uL Abs Immat Gran (auto) 0.03 (0.00-0.03) 10^3/uL Imm/Tot Granulo (auto) 0.3 (0.0-0.5) % Sodium 141 (136-145) mmol/L Potassium 3.6 (3.5-5.1) mmol/L Chloride 103 (98-107) mmol/L Carbon Dioxide 31.8 (21.0-32.0) mmol/L Anion Gap 9.8 BUN 19.0 H (7.0-18.0) mg/dL Creatinine 0.84 (0.55-1.02) mg/dL Est GFR ( Amer) >60 (>=60) Est GFR (Non-Af Amer) >60 (>=60) BUN/Creatinine Ratio 22.6 Glucose 88 (74-106) mg/dL Calcium 8.9 (8.5-10.1) mg/dL Total Bilirubin 0.7 (0.2-1.0) mg/dL AST 12 L (15-37) U/L ALT 17 (14-59) U/L Alkaline Phosphatase 42 L (46-116) U/L Total Protein 7.2 (6.4-8.2) g/dL Albumin 4.2 (3.4-5.0) g/dL Globulin 3.0 g/dL Albumin/Globulin Ratio 1.4 Lipase 59.0 (16.0-77.0) U/L Imaging Data Abdominal x-ray: Radiologist's impression: ITS Impressions Chest/Abdomen X-ray 01/09/24 21:17 IMPRESSION: 1. No acute cardiopulmonary abnormality. 2. Multiple air-fluid levels within nondilated loops of bowel. This likely represents enteritis and diarrhea. Electronically authenticated by: Evie CONNELL Date: 01/09/2024 23:30 Discharge Plan Discharge Stand Alone Forms: Work/School Release, Portal Instructions Chief Complaint: Nausea/Vomiting/Diarrhea Clinical Impression: Abdominal pain Patient Disposition: Home, Self-Care Time of Disposition Decision: 23:59 Condition: Good Mode of Transportation: Private Vehicle Prescriptions / Home Meds: No Action dicyclomine 20 mg tablet 20 mg PO QID PRN (Reason: abdominal pain) omeprazole 20 mg capsule,delayed release(DR/EC) 20 mg PO DAILY ondansetron 4 mg tablet,disintegrating 4 mg PO Q8H PRN (Reason: nausea and vomiting) tramadol 50 mg tablet 50 mg PO Q6H PRN (Reason: pain) Print Language: Upper Sorbian Instructions: Abdominal Pain (ED) Additional Instructions: Call the office of your primary care doctor to arrange for follow-up within the above-stated timeframe. Your ED visit was focused on your acute issue and does not replace primary care. You should review your labs, imaging, and diagnoses from this ED visit with your primary care physician. There may be non-emergent/ incidental findings that need further evaluation. You should review your vital signs including blood pressure with your PCP. If you were prescribed medications you should discuss possible side-effects and drug interactions with your pharmacist. Call 911 or go to the nearest Emergency Department if you develop any new or worsening symptoms. Seek immediate medical attention if you develop: worsening abdominal pain, new or worsening nausea, new or worsening vomiting, new or worsening diarrhea, chest pain, shortness of breath, pain with urination, problems urinating, fever, chills, weakness, or any new or worsening symptoms. Referrals: Cyndi Epperson NP [Primary Care Provider] - 1 week Discharge Date/Time: 01/10/24 00:05
== END 2024-01-10 00:05 | disposition home or self-care (01) ==
PROVIDERS: Emergency Provider Student in an Organized Health Care Education/Training Program; PCP Nurse Practitioner
DX: R10.9 Unspecified abdominal pain (principal); Z87.891 Personal history of nicotine dependence
CPT/HCPCS: 36415; 74022; 80053; 83690; 85025; 96361; 96374; 99285; J2405

== ENCOUNTER 2024-01-10 07:29 | Day surgery (SDC) | payer OTHER, SELFPAY ==
--- OUTSIDE RECORDS SUMMARY | 2024-01-10 07:33 | XMS_ITS | CCD ---
Author Organization [facility] Care Team Providers Care Neighborhood Aide Name Role Phone [facility], SAP ANALYST CYNDI Consulting Unavailable AICHOLZ, SAP ANALYST CYNDI Primary Care Unavailable AICHOLZ, SAP ANALYST CYNDI Attending Unavailable AICHOL, SAP ANALYST CYNDI Admitting Unavailable SNOWEBSILVIA, DR BURAK Rogers Consulting Unavailable KARASIK ., DR HDZ Consulting Unavailabl e AICHHOLZ, [facility] CYNDI Primary Care Unavailable KARASIK ., DR HDZ Attending Unavailabl e KARASIK ., DR HDZ Admitting Unavailabl e PIPPA LOVING Consulting Unavaila ble GEMNUPUR PENNINGTON Consulting Unavailable KARASIK ., DR HDZ Consulting Unavailabl e AICHHOLZ, [facility] CYNDI Primary Care Unavailable KARASIK ., DR HDZ Attending Unavailabl e KARASIK ., DR HDZ Admitting Unavailabl e CEDENO, RAMON Consulting Unavailable AICHHOLZ, SAP ANALYST CYNDI Primary Care Unavailable KARASIK ., DR HDZ Attending Unavailabl e KARASIK ., DR HDZ Admitting Unavailabl e AICHHOLZ, [facility] CYNDI Primary Care Unavailable KARASIK ., DR HDZ Attending Unavailabl e KARASIK ., DR HDZ Admitting Unavailabl e AICHHOLZ, [facility] CYNDI Primary Care Unavailable KARASIK ., DR HDZ Attending Unavailabl e KARASIK ., DR HDZ Admitting Unavailabl e KARASIK ., DR HDZ Consulting Unavailabl e AICHHOLZ, [facility] CYNDI Primary Care Unavailable KARASIK ., DR HDZ Attending Unavailabl e KARASIK ., DR HDZ Admitting Unavailabl e KARASIK ., DR HDZ Consulting Unavailabl e KARESTEPHANIA SUN Admitting Unavailable AICHHOLZ, SAP ANALYST CYNDI Primary Care Unavailable KARASIK ., DR HDZ Attending Unavailabl e TED, DR MIKE Flores Consulting Unavailable AICHHOLZ, SAP ANALYST CYNDI Primary Care Unavailable AICHHOLZ, SAP ANALYST CYNDI Attending Unavailable AICHHOLZ, SAP ANALYST CYNDI Admitting Unavailable AICHHOLZ, SAP ANALYST CYNDI Consulting Unavailable AICHHOLZ, SAP ANALYST CYNDI Consulting Unavailable AICHHOLZ, SAP ANALYST CYNDI Primary Care Unavailable AICHHOLZ, SAP ANALYST CYNDI Attending Unavailable AICHHOLZ, SAP ANALYST CYNDI Admitting Unavailable AICHHOLZ, SAP ANALYST CYNDI Consulting Unavailable AICHHOLZ, SAP ANALYST CYNDI Primary Care Unavailable AICHHOLZ, SAP ANALYST CYNDI Attending Unavailable AICHHOLZ, SAP ANALYST CYNDI Admitting Unavailable AICHHOLZ, SAP ANALYST CYNDI Consulting Unavailable AICHHOLZ, SAP ANALYST CYNDI Primary Care Unavailable AICHHOLZ, SAP ANALYST CYNDI Attending Unavailable AICHHOLZ, SAP ANALYST CYNDI Admitting Unavailable KARASIK ., DR HDZ Consulting Unavailabl e AICHHOLZ, SAP ANALYST CYNDI Primary Care Unavailable KARASIK ., DR HDZ Attending Unavailabl e KARASIK ., DR HDZ Admitting Unavailabl e KARASIK ., DR HDZ Consulting Unavailabl e AICHHOLZ, SAP ANALYST CYNDI Primary Care Unavailable KARASIK ., DR HDZ Attending Unavailabl e KARASIK ., DR HDZ Admitting Unavailabl e HEATHER SWEENEY Consulting Unavailable KARASIK ., DR HDZ Procedure Practitioner Pina vailable ADINA YIP Consulting Unavailable AICHHOLZ, SAP ANALYST CYNDI Primary Care Unavailable KARASIK ., DR [...] source) Penicillins Drug allergy (disorder) 5 [facility] Repository (1 source) Mis-Other; Translations: [place] Propensity to adverse reactions (disorder) 2 [facility] Rep[facility] (5 sources) Amoxicillin; Translations: [amoxicillin] Drug Allergy Unkempt [facility] Medications Current Medications Medication Drug Class(es) Dates Sig (Normalized) Sig (Original) dicyclomine hydrochloride 10 mg oral capsule (1 source) Anticholinergic Start: 12-19-2023 End: 12-26-2023 take 1 capsule by mouth every six hours as needed for muscle spasms Bentyl 10 mg Cap 10 mg = 1 cap(s), Oral, q6hr, PRN Spasm, X 7 day(s), # 30 cap(s), Refills(s) 0, Pharmacy: [facility]/pharmacy #[id number], 170.2, cm, 12/19/23 16:15:00 EDT, Height/Length [...] pain, # 12 tab(s), Refills(s) 0, Pharmacy: [facility]/pharmacy #[id number], 170.2, cm, 12/19/23 16:15:00 EDT, Height/Length [...] 300 Contrast amount in ml's: 100 Normal [facility] ED Note-Physicianon 12-20-19 ED Note-Physician ED Note-Physician Basic Information Time Seen: Emily Troy PA-C. 12/19/2023 17:17 Chief Complaint was at [place] for diaphram pain. had ct's done. still [...] The patient states she was seen at [facility] last Tuesday. She states they did [...] in length (more content not included)... Normal [facility] Comment on above: Result Comment: Elec tronically Signed By: Emily Troy PA-C\.br\Date and Time Signed: 12/19/23 23:05 EDT\.br\Electronically Co-Signed By: Emily Troy PA-C\.br\Date and Time Co-Signed: 12/19/23 23:06 EDT\.br\Electronically Co-Signed By: Emily Troy PA-C\.br\Date and Time Co-Signed: 12/19/23 23:22 EDT\.br\Electronically Co-Signed By: Reza Bedoya DO\.br\Date and Time Co-Signed: 12/20/23 07:02 EDT BMPon 12-19-2023 Anion gap [Moles/Vol] 10 mmol/L Normal 6-16 [facility] Comment on above: Performed By: #### 2 [id number] #### [facility] [address] [place] [address] Calcium [Mass/Vol] 9.7 mg/dL Normal 8.9-11.1 [facility] Comment on above: Performed By: #### 2 [id number] #### [facility] [address] [place] [address] Chloride [Moles/Vol] 103 mmol/L Normal 101-111 [facility] Comment on above: Performed By: #### 2 [id number] #### [facility] [address] [place] [address] CO2 [Moles/Vol] 29 mmol/L Normal 21-31 [facility] Comment on above: Performed By: #### 2 [id number] #### [facility] [address] [place] [address] Creatinine [Mass/Vol] 0.9 mg/dL Normal 0.5-1.3 [facility] Comment on above: Performed By: #### 2 [id number] #### [facility] [address] [place] [address] Glucose [Mass/Vol] 92 mg/dL Normal 55-199 [facility] Comment on above: Performed By: #### 2 [id number] #### [facility] [address] [place] [address] Potassium [Moles/Vol] 4.3 mmol/L Normal 3.5-5.3 [facility] Comment on above: Performed By: #### 2 [id number] #### [facility] [address] [place] [address] Sodium [Moles/Vol] 138 mmol/L Normal 135-145 [facility] Comment on above: Performed By: #### 2 [id number] #### [facility] [address] [place] [address] Urea nitrogen [Mass/Vol] 17 mg/dL Normal 5-21 [facility] Comment on above: Performed By: #### 2 360249 #### [facility] [address] [place] [address] Urea nitrogen/Creatinine [Mass ratio] 19 No Units Normal 10-20 [facility] Comment on above: Performed By: #### 2 [id number] #### [facility] [address] [place] [address] CBC w/ Auto Diffon 4 Basophils/100 WBC (Bld) 0.5 % Normal 0.0-2.0 [facility] Comment on above: Performed By: #### 2 [id number] #### [facility] [address] [place] [address] Basophils/Leukocytes Auto (Bld) [Pure # fraction] 0.1 E9/L Normal 0.0-0.2 [facility] Comment on above: Performed By: #### 2 [id number] #### [facility] [address] [place] [address] Eosinophils (Bld) [#/Vol] 0.1 E9/L Normal 0.0-0.5 [facility] Comment on above: Performed By: #### 2 236390 #### [facility] [address] [place] [address] Eosinophils/100 WBC (Bld) 0.6 % Normal 0.0-8.0 [facility] Comment on above: Performed By: #### 2 [id number] #### [facility] [address] [place] [address] Erythrocyte distribution width (RBC) [Ratio] 13.1 % Normal 10.9-14.2 [facility] Comment on above: Performed By: #### 2 [id number] #### [facility] [address] [place] [address] Hematocrit (Bld) [Volume fraction] 42.6 % Normal 34.0-46.0 [facility] Comment on above: Performed By: #### 2 143137 #### [facility] [address] [place] [address] Hemoglobin (Bld) [Mass/Vol] 14.7 g/dL Normal 12.0-16.0 [facility] Comment on above: Performed By: #### 2 [id number] #### [facility] [address] [place] [address] Lymphocytes (Bld) [#/Vol] 2.2 E9/L Normal 1.0-4.0 [facility] Comment on above: Performed By: #### 2 754957 #### [facility] [address] [place] [address] Lymphocytes/100 WBC (Bld) 18.7 % Normal 14.0-50.0 [facility] Comment on above: Performed By: #### 2 523323 #### [facility] [address] [place] [address] MCH (RBC) [Entitic mass] 31.5 pg Normal 27.0-34.0 [facility] Comment on above: Performed By: #### 2 [id number] #### [facility] [address] [place] [address] MCHC (RBC) [Mass/Vol] 34.5 g/dL Normal 31.4-36.0 [facility] Comment on above: Performed By: #### 2 [id number] #### [facility] [address] [place] [address] MCV (RBC) [Entitic vol] 91.3 fL Normal 80.0-100.0 [facility] Comment on above: Performed By: #### 2 [id number] #### [facility] [address] [place] [address] Monocytes (Bld) [#/Vol] 0.6 E9/L Normal 0.2-1.0 [facility] Comment on above: Performed By: #### 2 200625 #### [facility] [address] [place] [address] Neutrophils (Bld) [#/Vol] 8.7 E9/L High 2.0-7.5 [facility] Comment on above: Performed By: #### 2 269157 #### [facility] [address] [place] [address] Neutrophils/100 WBC (Bld) 75.4 % High 36.0-75.0 [facility] Comment on above: Performed By: #### 2 288348 #### [facility] [address] [place] [address] Platelet mean volume (Bld) [Entitic vol] 8.9 fL Normal 6.4-10.8 [facility] Comment on above: Performed By: #### 2 923753 #### [facility] [address] [place] [address] Platelets (Bld) [#/Vol] 173.0 E9/L Normal 150.0-500.0 [facility] Comment on above: Performed By: #### 2 103925 #### [facility] [address] [place] [address] RBC (Bld) [#/Vol] 4.7 E12/L Normal 4.3-5.9 [facility] Comment on above: Performed By: #### 2 308751 #### [facility] [address] [place] [address] WBC corrected for nucl RBC Auto (Bld) [#/Vol] 11.5 E9/L High 4.0-11.0 [facility] Comment on above: Performed By: #### 2 556285 #### [facility] [address] [place] [address] CHEMISTRYOrdered By: SYSTEM SYSTEM on 12-19-2023 Albumin [...] High Sensitivity Troponin I Instructions For Use, [employer], December 2017) Anion gap [Moles/Vol] 10 mmol/L [...] High Sensitivity Troponin I Instructions For Use, [employer], December 2017) Urea nitrogen [Mass/Vol] 17 mg/dL [...] 2023 ED Clinical Summary ED Clinical Summary [facility] [address] [place], [place] [address] ED Clinical Summary Person Information Name: LORA MARTINS/NewAbi Age: 43 Years : 1980 Sex: Female Language: Ukrainian PCP: CYNDI EPPERSON CNP Marital Status: Single [...] 12/19/2023 23:16:39 12/19/2023 23:16:39 12/19/2023 23:16:39 ADDRESS: [address] [place] [id number] PHYS DOC NOTES: MEDICAL INFORMATION: Prescriptions Given: New Medications [id number], [address] [place], [place] [id number], [phone] dicyclomine (Bentyl 10 mg Cap) 1 Capsules By Mouth every 6 hours as needed Spasm for 7 Days. Refills: 0. tramadol (traMADOL 50 mg Tab) 0.5-1 tab(s) By Mouth every 6 hours as needed as needed for pain. Refills: 0. PATIENT EDUCATION INFORMATION: Instructions: Hepatomegaly, Qxsx-sj-Gstu; Abdominal Pain, Adult Follow up: With: Address: When: Booker Shelley [address] [facility], [address], [address] [phone] Business (1) In 3 days 12/22/2023 With: Address: When: CYNDI EPPERSON [address] [place], [place] [phone] Business (1) In 3 days DIAGNOSIS: 1:Acute abdominal pain; 2:Hepatomegaly Normal [facility] ED Patient Summaryon 024 ED Patient Summary ED Patient Summary [address] [address] Patient Discharge Instructions Person Information Name: LORA MARTINS Age: 43 Years Arrival Date: 12/19/2023 15:58:56 Discharge Diagnosis: 1:Acute abdominal pain; 2:Hepatomegaly Primary Care Physician: CYNDI EPPERSON CNP Provider Information Primary Provider: Reza Bedoya DO Advanced Chain Tender:None The exam and treatment you received in the Emergency Department were for an urgent problem and are not intended as complete care. It is important that you follow up with a doctor, nurse practitioner, or physician?s video library assistant for ongoing care. If your symptoms [...] Follow-up Instructions: With: Address: When: Booker Shelley [address] [place] [address], [address], [address] [phone] [facility] (1) In 3 days 12/22/2023 With: Address: When: CYNDI EPPERSON [address], [place] [phone] [facility] (1) In 3 days In the event that this physician does not participate in your insurance network, please consult with your insurance company to find a nearby participating provider. Patient Education Materials: Hepatomegaly, Jrkb-sl-Lfbg; Abdominal Pain, Adult A MESSAGE TO ALL PATIENTS REGARDING OPIOIDS PRESCRIPTION OPIOIDS: WHAT YOU NEED TO KNOW Prescription opioids can be used to help relieve ynetvfme-mz-aptplg pain and are often prescribed following a [...] opioids abuse (more content not included)... Normal [facility] HEMATOLOGYOrdered By: SYSTEM SYSTEM on 12-19-2023 [...] 12-19-2023 Albumin [Mass/Vol] 4.3 g/dL Normal 3.3-5.0 [facility] Comment on above: Performed By: #### 2 [id number] #### [facility] [address] [place] [address] Albumin/Globulin (S) [Mass conc ratio] 2.0 Normal 1.1-2.2 [facility] Comment on above: Performed By: #### 2 119595 #### [facility] [address] [place] [address] ALP [Catalytic activity/Vol] 28 Int._Unit/L Normal 21-98 [facility] Comment on above: Performed By: #### 2 [id number] #### [facility] [address] [place] [address] ALT No additional P-5'-P [Catalytic activity/Vol] 14 Int._Unit/L Normal 6-46 [facility] Comment on above: Performed By: #### 2 460262 #### [facility] [address] [place] [address] AST [Catalytic activity/Vol] 14 Int._Unit/L Normal 5-43 [facility] Comment on above: Performed By: #### 2 [id number] #### [facility] [address] [place] [address] Bilirubin [Mass/Vol] 1.0 mg/dL Normal 0.0-1.1 [facility] Comment on above: Performed By: #### 2 411646 #### [facility] [address] [place] [address] Bilirubin.direct [Mass/Vol] 0.1 mg/dL Normal 0.0-0.4 [facility] Comment on above: Performed By: #### 2 289169 #### [facility] [address] [place] [address] Bilirubin.indirect [Mass or moles/Vol] 0.9 mg/dL Normal 0.1-0.9 [facility] Comment on above: Performed By: #### 2 381362 #### [facility] [address] [place] [address] Globulin (S) [Mass/Vol] 2.1 g/dL Normal 1.4-4.0 [facility] Comment on above: Performed By: #### 2 807371 #### [facility] [address] [place] [address] Protein [Mass/Vol] 6.4 g/dL Normal 6.0-7.8 [facility] Comment on above: Performed By: #### 2 643027 #### [facility] [address] [place] [address] Lipase Levelon 12-19-2023 Lipase [Catalytic activity/Vol] 18 U/L Normal 13-58 [facility] Comment on above: Performed By: #### 2 [id number] #### [facility] [address] [place] [address] PT & PTTon 12-19-2023 aPTT Coag (PPP) [Time] 29.0 second(s) Normal 25.1-36.5 [facility] Comment on above: Result Comment: Para [...] - 109.0 sec. Performed By: #### 1 [id number] #### [facility] [address] [place] [address] INR Coag (PPP) [Relative time] 1.05 {INR} Invalid Interpretation Code [facility] Comment on above: Result Comment: INR results are specifically intended to assess patients stabilized on long-term Anticoagulation therapy suggested INR?s ?Less Intensive Anticoagulation? 2.0 ? 3.0 Conventional Range 3.0 ? 4.5 Performed By: #### 1 [id number] #### [facility] [address] [place] [address] PT Coag (PPP) [Time] 11.8 second(s) Normal 9.4-12.5 [facility] Comment on above: Result Comment: 15 [...] no normal ranges. Performed By: #### 1 [id number] #### [facility] [address] [place] [address] Troponin 0 Hr.on 12-19-2023 Troponin HS 2.70 pg/mL Low 10.10-27.10 [facility] Comment on above: Result Comment: The 95% CI (Confidence Interval) PPV (Positive Predictive Value) for myocardial infarction in females is 38 pg/mL, in males 51 pg/mL. The results should be used in conjunction with clinical conditions of myocardial infarction. (Access High Sensitivity Troponin I Instructions For Use, [employer], December 2017) Performed By: #### 1 [id number] #### [facility] [address] [place] [address] Troponin 1 Hr.on 12-19-2023 Troponin HS 2.40 pg/mL Low 10.10-27.10 [facility] Comment on above: Order Comment: 1809 Result Comment: The 95% CI (Confidence Interval) PPV (Positive Predictive Value) for myocardial infarction in females is 38 pg/mL, in males 51 pg/mL. The results should be used in conjunction with clinical conditions of myocardial infarction. (Access High Sensitivity Troponin I Instructions For Use, [employer], December 2017) Performed By: #### 1 [id number] #### [facility] [address] [place] [address] eGFRon 12-19-2023 eGFR 80 mL/min/1.73 m2 Normal >=59 [facility] Comment on above: Order Comment: Order added by Discern Expert. Performed By: #### 1 [id number] #### [facility] [address] [place] [address] [facility] 3D [place] CA Don 04-08-2022 [facility] 3D [place] CAD Patient: LORA MARTINS Exam Date: 04/08/2022 : 1980 Gender:F Ordering : KP EPPERSON [facility] Admission #: [id number] Family : Order #: [id number] CLICK HERE TO VIEW EXAM RADIOLOGY REPORT [...] pancreatic cancer at age 55. LOCATION: [facility] BREAST COMPOSITION: Heterogeneously dense,which may obscure small [...] MD on 04/08/2022 at 15:21 Normal [facility] US BREAST [place] LIMITEDon 12-0 US BREAST [place] LIMITED Patient: LORA MARTINS Exam Date: 04/08/2022 : 1980 Gender:F Ordering : KP EPPERSON [facility] Admission #: [id number] Family : Order #: [id number] CLICK HERE TO VIEW EXAM RADIOLOGY REPORT [...] pancreatic cancer at age 55. LOCATION: [facility] BREAST COMPOSITION: Heterogeneously dense,which may obscure small [...] MD on 04/08/2022 at 15:21 Normal [facility] BUNon 03-23-2022 Urea nitrogen [Mass/Vol] 18.0 mg/dL Normal 7.0-18.0 [facility] Comment on above: Performed By: #### B UN, CREA #### [facility] [address] [place] [address] Dr. Jackie Bhardwaj CBC AUTO DIFFon 03-23-2022 BASO # 0.0 103/ul Normal 0.0-0.1 [facility] Comment on above: Performed By: #### P TT, PT #### [facility] [address] [place] [address] Dr. Jackie Bhardwaj Basophils/100 WBC (Bld) 0.2 % Normal 0.2-2.0 [facility] Comment on above: Performed By: #### P TT, PT #### [facility] [address] [place] [address] Dr. Jackie Bhardwaj EO # 0.1 103/ul Normal 0.0-0.7 [facility] Comment on above: Performed By: #### P TT, PT #### [facility] [address] [place] [address] Dr. Jackie Bhardwaj Eosinophils/100 WBC (Bld) 0.4 % Critically low 0.9-7.0 [facility] Comment on above: Performed By: #### P TT, PT #### [facility] [address] [place] [address] Dr. Jackie Bhardwaj Erythrocyte distribution width (RBC) [Ratio] 12.8 % Normal 11.0-15.0 [facility] Comment on above: Performed By: #### P TT, PT #### [facility] [address] [place] [address] Dr. Jackie Bhardwaj Hematocrit (Bld) [Volume fraction] 30.7 % Critically low 36.0-48.0 [facility] Comment on above: Performed By: #### P TT, PT #### [facility] [address] [address] [address] Jackie Bhardwaj Hemoglobin (Bld) [Mass/Vol] 10.3 g/dL Critically low 12.0-16.0 [facility] Comment on above: Performed By: #### P TT, PT #### [facility] [address] [address] [address] Jackie Bhardwaj IG # 0.04 10e3/ul Critically high 0.00-0.03 [facility] Comment on above: Performed By: #### P TT, PT #### [facility] [address] [address] [address] Jackie Bhardwaj IG % 0.3 % Normal 0.0-0.5 [facility] Comment on above: Performed By: #### P TT, PT #### [facility] [address] [place] [address] Dr. Jackie Bhardwaj LYMPH # 2.7 103/ul Normal 1.2-3.8 [facility] Comment on above: Performed By: #### P TT, PT #### [facility] [address] [address] [address] Jackie Bhardwaj Lymphocytes/100 WBC (Bld) 21.0 % Normal 20.5-60.0 [facility] Comment on above: Performed By: #### P TT, PT #### [facility] [address] [address] [address] Jackie Bhardwaj MANUAL DIFF REQ NO Normal [facility] Comment on above: Performed By: #### P TT, PT #### [facility] [address] [address] [address] Jackie Bhardwaj MCH (RBC) [Entitic mass] 30.7 pg Normal 26.7-34.0 [facility] Comment on above: Performed By: #### P TT, PT #### [facility] [address] [place] [address] Dr. Jackie Bhardwaj MCHC (RBC) [Mass/Vol] 33.6 g/dL Normal 29.9-35.2 [facility] Comment on above: Performed By: #### P TT, PT #### [facility] [address] [place] [address] Dr. Jackie Bhardwaj MCV (RBC) [Entitic vol] 91.6 fL Normal 81.0-99.0 [facility] Comment on above: Performed By: #### P TT, PT #### [facility] [address] [place] [address] Dr. Jackie Bhardwaj MONO # 0.8 103/ul Normal 0.3-0.8 [facility] Comment on above: Performed By: #### P TT, PT #### [facility] [address] [place] [address] Dr. Jackie Bhardwaj Monocytes/100 WBC (Bld) 6.2 % Normal 1.7-12.0 [facility] Comment on above: Performed By: #### P TT, PT #### [facility] [address] [place] [address] Dr. Jackie Bhardwaj NEUT # 9.2 103/ul Critically high 1.4-6.5 [facility] Comment on above: Performed By: #### P TT, PT #### [facility] [address] [place] [address] Dr. Jackie Bhardwaj Neutrophils/100 WBC (Bld) 71.9 % Normal 43.0-75.0 [facility] Comment on above: Performed By: #### P TT, PT #### [facility] [address] [place] [address] Dr. Jackie Bhardwaj Platelet mean volume (Bld) [Entitic vol] 11.2 fL Normal 9.5-13.5 [facility] Comment on above: Performed By: #### P TT, PT #### [facility] [address] [place] [address] Dr. Jackie Bhardwaj PLT 135 103/ul Critically low 150-450 [facility] Comment on above: Performed By: #### P TT, PT #### [facility] [address] [place] [address] Dr. Jackie Bhardwaj RBC 3.35 106/ul Critically low 4.20-5.40 [facility] Comment on above: Performed By: #### P TT, PT #### [facility] [place] [facility] [address] [place] [address] Dr. Jackie Bhardwaj WBC 12.8 103/ul Critically high 4.0-11.0 [facility] Comment on above: Performed By: #### P TT, PT #### [facility] [place] [facility] [address] [place] [address] Dr. Jackie Bhardwaj CREATININEon 03-23-2022 Creatinine [Mass/Vol] 0.72 mg/dL Normal 0.55-1.02 [facility] Comment on above: Performed By: #### B UN, CREA #### [facility] [place] [facility] [address] [place] [address] Dr. Jackie Bhardwaj EGFR-AF INDIAN >60 Normal >=60 [facility] Comment on above: Performed By: #### B UN, CREA #### [facility] [place] [facility] [address] [place] [address] Dr. Jackie Bhardwaj EGFR-NON AF INDIAN >60 Normal >=60 [facility] Comment on above: Performed By: #### B UN, CREA #### [facility] [place] [facility] [address] [place] [address] Dr. Jackie Bhardwaj ANTIBODY ID PANELon 03-22-20 22 ANTIBODY ID PANEL Antibody ID Anti-D Blood Bank Notes testing performed at [facility] [place] [facility] [place] [facility] Comment on above: Performed By: #### P TT, PT #### [facility] [place] [facility] [address] [place] [address] Dr. Jackie Bhardwaj URon 03-22-2022 , QUAL Negative Normal NEGATIVE [facility] Comment on above: Performed By: #### P TT, PT #### [facility] [place] [facility] [address] [place] [address] Dr. Jackie Bhardwaj [facility]09 SARS-CoV-2 (COVID-19) RNA JOHN+probe Ql (Unsp spec) Not detected Normal NOT DETECTED [facility] [place] [facility] Comment on above: Result Comment: This test is not yet approved or cleared by the [place] FDA. When there are no FDA-approved or cleared tests available, and other criteria are met, FDA can make tests available under an emergency access mechanism called an Emergency Use Authorization (EUA). The EUA for this test is supported by the [place] of Health and Human Service's (HHS's) declaration [...] SARS-CoV-2. Performed By: #### C VDTB #### [facility] [place] [facility] [address] [place] [address] Dr. Jackie Bhardwaj TYPE AND SCREENon 03-18-2022 TYPE AND SCREEN Negative Normal [facility] Comment on above: Performed By: #### P TT, PT #### [facility] [place] [facility] [address] [place] [address] Dr. Jackie Bhardwaj LIVER PROFILEon 03-10-2022 Albumin [Mass/Vol] 4.1 g/dL Normal 3.4-5.0 [facility] Comment on above: Performed By: #### L IVER, BMP #### [facility] [place] [facility] [address] [place] [address] Dr. Jackie Bhardwaj Albumin/Globulin [Mass ratio] 1.6 {ratio} Normal [facility] Comment on above: Performed By: #### L IVER, BMP #### [facility] [place] [facility] [address] [place] [address] Dr. Jackie Bhardwaj ALP [Catalytic activity/Vol] 41 U/L Critically low 46-116 [facility] Comment on above: Performed By: #### L IVER, BMP #### [facility] [place] [facility] [address] [place] [address] Dr. Jackie Bhardwaj ALT [Catalytic activity/Vol] 16 U/L Normal 14-59 [facility] Comment on above: Performed By: #### L IVER, BMP #### [facility] [place] [facility] [address] [place] [address] Dr. Jackie Bhardwaj AST [Catalytic activity/Vol] 14 U/L Critically low 15-37 [facility] Comment on above: Performed By: #### L IVER, BMP #### [facility] [place] [facility] [address] [place] [address] Dr. Jackie Bhardwaj BILI, CONJUGATED 0.1 mg/dL Normal 0.0-0.2 [facility] Comment on above: Performed By: #### L IVER, BMP #### [facility] [place] [facility] [address] [place] [address] Dr. Jackie Bhardwaj Bilirubin [Mass/Vol] 0.3 mg/dL Normal 0.2-1.0 [facility] Comment on above: Performed By: #### L IVER, BMP #### [facility] [place] [facility] [address] [place] [address] Dr. Jackie Bhardwaj Globulin (S) [Mass/Vol] 2.5 g/dL Normal [facility] Comment on above: Performed By: #### L IVER, BMP #### [facility] [place] [facility] [address] [place] [address] Dr. Jackie Bhardwaj Protein [Mass/Vol] 6.6 g/dL Normal 6.4-8.2 [facility] Comment on above: Performed By: #### L IVER, BMP #### [facility] [place] [facility] [address] [place] [address] Dr. Jackie Bhardwaj PROF CHEM 8 (BAS METB)on Anion gap [Moles/Vol] 11.6 mmol/L Normal [facility] Comment on above: Performed By: #### L IVER, BMP #### [facility] [place] [facility] [address] [place] [address] Dr. Jackie Bhardwaj Calcium [Mass/Vol] 8.8 mg/dL Normal 8.5-10.1 [facility] Comment on above: Performed By: #### L IVER, BMP #### [facility] [place] [facility] [address] [address] [address] Jackie Bhardwaj Chloride [Moles/Vol] 102 mmol/L Normal 98-107 [facility] [place] [facility] Comment on above: Performed By: #### Robin MANSFIELD, BMP #### [facility] [place] [facility] [address] [place] [address] Dr. Jackie Bhardwaj CO2 [Moles/Vol] 28.9 mmol/L Normal 21.0-32.0 [facility] Comment on above: Performed By: #### Robin MANSFIELD, BMP #### [facility] [place] [facility] [address] [place] [address] Dr. Jackie Bhardwaj Creatinine [Mass/Vol] 0.78 mg/dL Normal 0.55-1.02 [facility] [place] [facility] Comment on above: Performed By: #### Robin MANSFIELD, BMP #### [facility] [place] [facility] [address] [place] [address] Dr. Jackie Bhardwaj EGFR-AF INDIAN >60 Normal >=60 [facility] Comment on above: Performed By: #### Robin MANSFIELD, BMP #### [facility] [place] [facility] [address] [place] [address] Dr. Jackie Bhardwaj EGFR-NON AF INDIAN >60 Normal >=60 [facility] [place] [facility] Comment on above: Performed By: #### Robin MANSFIELD, BMP #### [facility] [place] [facility] [address] [place] [address] Dr. Jackie Bhardwaj Glucose [Mass/Vol] 81 mg/dL Normal 74-106 [facility] Comment on above: Performed By: #### Robin MANSFIELD, BMP #### [facility] [place] [facility] [address] [place] [address] Dr. Jackie Bhardwaj Potassium [Moles/Vol] 3.5 mmol/L Normal 3.5-5.1 [facility] [place] [facility] Comment on above: Performed By: #### Robin MANSFIELD, BMP #### [facility] [place] [facility] [address] [place] [address] Dr. Jackie Bhardwaj Sodium [Moles/Vol] 139 mmol/L Normal 136-145 [facility] Comment on above: Performed By: #### Robin MANSFIELD, BMP #### [facility] [place] [facility] [address] [place] [address] Dr. Jackie Bhardwaj Urea nitrogen [Mass/Vol] 21.0 mg/dL Critically high 7.0-18.0 [facility] Comment on above: Performed By: #### L SHYLA, BMP #### [facility] [place] [facility] [address] [place] [address] Dr. Jackie Bhardwaj Urea nitrogen/Creatinine [Mass ratio] 26.9 mg/mg Normal [facility] Comment on above: Performed By: #### L SHYLA, BMP #### [facility] [place] [facility] [address] [place] [address] Dr. Jackie Bhardwaj PROTIMEon 03-10-2022 INR Coag (PPP) [Relative time] 0.98 {INR} Normal [facility] [place] [facility] Comment on above: Performed By: #### P TT, PT #### [facility] [place] [facility] [address] [place] [address] Dr. Jackie Bhardwaj INR GUIDELINES SEE BELOW Normal [facility] Comment on above: Result Comment: BILLY RED INR: 2.0 - 3.0 CONDITIONS NOT LISTED BELOW 2.5 - 3.5 FOR PROSTHETIC HEART VALVE REPLACEMENT 2.5 - 3.5 RECURRENT THROMBOSIS Performed By: #### P TT, PT #### [facility] [place] [facility] [address] [place] [address] Dr. Jackie Bhardwaj PT Coag (PPP) [Time] 10.6 s Normal 9.0-11.6 [facility] Comment on above: Performed By: #### P TT, PT #### [facility] [place] [facility] [address] [place] [address] Dr. Jackie Bhardwaj PTTon 03-10-2022 aPTT Coag (Bld) [Time] 26.3 s Normal 22.3-36.2 [facility] Comment on above: Performed By: #### P TT, PT #### [facility] [place] [facility] [address] [place] [address] Dr. Jackie Bhardwaj CBC AUTO DIFFon 03-09-2022 BASO # 0.1 103/ul Normal 0.0-0.1 [facility] Comment on above: Performed By: #### P TT, PT #### [facility] [place] [facility] [address] [place] [address] Dr. Jackie Bhardwaj Basophils/100 WBC (Bld) 0.6 % Normal 0.2-2.0 [facility] [place] [facility] Comment on above: Performed By: #### P TT, PT #### [facility] [place] [facility] [address] [place] [address] Dr. Jackie Bhardwaj EO # 0.2 103/ul Normal 0.0-0.7 [facility] [place] [facility] Comment on above: Performed By: #### P TT, PT #### [facility] [place] [facility] [address] [place] [address] Dr. Jackie Bhardwaj Eosinophils/100 WBC (Bld) 1.8 % Normal 0.9-7.0 [facility] [place] [facility] Comment on above: Performed By: #### P TT, PT #### [facility] [place] [facility] [address] [place] [address] Dr. Jackie Bhardwaj Erythrocyte distribution width (RBC) [Ratio] 12.7 % Normal 11.0-15.0 [facility] Comment on above: Performed By: #### P TT, PT #### [facility] [place] [facility] [address] [place] [address] Dr. Jackie Bhardwaj Hematocrit (Bld) [Volume fraction] 39.1 % Normal 36.0-48.0 [facility] Comment on above: Performed By: #### P TT, PT #### [facility] [place] [facility] [address] [place] [address] Dr. Jackie Bhardwaj Hemoglobin (Bld) [Mass/Vol] 12.8 g/dL Normal 12.0-16.0 [facility] [place] [facility] Comment on above: Performed By: #### P TT, PT #### [facility] [place] [facility] [address] [place] [address] Dr. Jackie Bhardwaj IG # 0.03 10e3/ul Normal 0.00-0.03 [facility] [place] [facility] Comment on above: Performed By: #### P TT, PT #### [facility] [place] [facility] [address] [place] [address] Dr. Jackie Bhardwaj IG % 0.3 % Normal 0.0-0.5 [facility] [place] [facility] Comment on above: Performed By: #### P TT, PT #### [facility] [place] [facility] [address] [place] [address] Dr. Jackie Bhardwaj LYMPH # 3.5 103/ul Normal 1.2-3.8 [facility] Comment on above: Performed By: #### P TT, PT #### [facility] [place] [facility] [address] [place] [address] Dr. Jackie Bhardwaj Lymphocytes/100 WBC (Bld) 32.7 % Normal 20.5-60.0 [facility] Comment on above: Performed By: #### P TT, PT #### [facility] [place] [facility] [address] [place] [address] Dr. Jackie Bhardwaj MANUAL DIFF REQ NO Normal [facility] Comment on above: Performed By: #### P TT, PT #### [facility] [place] [facility] [address] [place] [address] Dr. Jackie Bhardwaj MCH (RBC) [Entitic mass] 30.7 pg Normal 26.7-34.0 [facility] Comment on above: Performed By: #### P TT, PT #### [facility] [place] [facility] [address] [place] [address] Dr. Jackie Bhardwaj MCHC (RBC) [Mass/Vol] 32.7 g/dL Normal 29.9-35.2 [facility] Comment on above: Performed By: #### P TT, PT #### [facility] [place] [facility] [address] [place] [address] Dr. Jackie Bhardwaj MCV (RBC) [Entitic vol] 93.8 fL Normal 81.0-99.0 [facility] Comment on above: Performed By: #### P TT, PT #### [facility] [place] [facility] [address] [place] [address] Dr. Jackie Bhardwaj MONO # 0.7 103/ul Normal 0.3-0.8 [facility] Comment on above: Performed By: #### P TT, PT #### [facility] [place] [facility] [address] [place] [address] Dr. Jackie Bhardwaj Monocytes/100 WBC (Bld) 6.3 % Normal 1.7-12.0 [facility] Comment on above: Performed By: #### P TT, PT #### [facility] [place] [facility] [address] [address] [address] Jackie Bhardwaj NEUT # 6.2 103/ul Normal 1.4-6.5 [facility] [place] [facility] Comment on above: Performed By: #### P TT, PT #### [facility] [place] [facility] [address] [address] [address] Jackie Bhardwaj Neutrophils/100 WBC (Bld) 58.3 % Normal 43.0-75.0 [facility] [place] [facility] Comment on above: Performed By: #### P TT, PT #### [facility] [place] [facility] [address] [address] [address] Jackie Bhardwaj Platelet mean volume (Bld) [Entitic vol] 11.5 fL Normal 9.5-13.5 [facility] [place] [facility] Comment on above: Performed By: #### P TT, PT #### [facility] [place] [facility] [address] [place] [address] Dr. Jackie Bhardwaj PLT 167 103/ul Normal 150-450 [facility] [place] [facility] Comment on above: Performed By: #### P TT, PT #### [facility] [place] [facility] [address] [place] [address] Dr. Jackie Bhardwaj RBC 4.17 106/ul Critically low 4.20-5.40 [facility] Comment on above: Performed By: #### P TT, PT #### [facility] [place] [facility] [address] [address] [address] Jackie Bhardwaj WBC 10.6 103/ul Normal 4.0-11.0 [facility] [place] [facility] Comment on above: Performed By: #### P TT, PT #### [facility] [place] [facility] [address] [address] [address] Jackie Bhardwaj IRONon 03-09-2022 Iron [Mass/Vol] 73.0 ug/dL Normal 50.0-170.0 [facility] Comment on above: Performed By: #### P TT, PT #### [facility] [place] [facility] [address] [address] [address] Jackie Bhardwaj PREG HCG QUALon 02-01-2022 , QUAL Negative Normal NEGATIVE [facility] Comment on above: Performed By: #### P REG #### [facility] [place] [facility] [address] [place], [place] [address] Dr. Jackie Bhardwaj , QUAL Negative Normal NEGATIVE [facility] Comment on above: Result Comment: Prev iously reported as: [id number] On 02/01/2022 06:45 By DM9 Performed By: #### P TT, PT #### [facility] [place] [facility] [id number] Jackie Bhardwaj Covid-19 PCR (CVDTBH)on 01-08 SARS-CoV-2 (COVID-19) RNA JOHN+probe Ql (Unsp spec) Not detected Normal NOT DETECTED [facility] [place] [facility] Comment on above: Result Comment: This test is not yet approved or cleared by the [place] FDA. When there are no FDA-approved or cleared tests available, and other criteria are met, FDA can make tests available under an emergency access mechanism called an Emergency Use Authorization (EUA). The EUA for this test is supported by the [place] of Health and Human Service's (HHS's) declaration [...] SARS-CoV-2. Performed By: #### C VDTBH #### [facility] [place] [facility] [address] [place], [place] [address] Dr. Jackie Bhardwaj Covid-19 PCR (CVDTBH)on 12-09 SARS-CoV-2 (COVID-19) RNA JOHN+probe Ql (Unsp spec) Not detected Normal NOT DETECTED [facility] [place] [facility] Comment on above: Result Comment: This test is not yet approved or cleared by the [place] FDA. When there are no FDA-approved or cleared tests available, and other criteria are met, FDA can make tests available under an emergency access mechanism called an Emergency Use Authorization (EUA). The EUA for this test is supported by the [employer] of Health and Human Service's (HHS's) declaration [...] Performed By: #### P TT, PT #### [facility] [place] [facility] [address] [place] [address] Dr. Jackie Bhardwaj CBC AUTO DIFFon 12-29-2021 BASO # 0.1 103/ul Normal 0.0-0.1 [facility] Comment on above: Performed By: #### C BC #### [facility] [place] [facility] [address] [place] [address] Dr. Jackie Bhardwaj Basophils/100 WBC (Bld) 0.4 % Normal 0.2-2.0 [facility] Comment on above: Performed By: #### C BC #### [facility] [place] [facility] [address] [place] [address] Dr. Jackie Bhardwaj EO # 0.2 103/ul Normal 0.0-0.7 [facility] [place] [facility] Comment on above: Performed By: #### C BC #### [facility] [place] [facility] [address] [place] [address] Dr. Jackie Bhardwaj Eosinophils/100 WBC (Bld) 1.6 % Normal 0.9-7.0 [facility] [place] [facility] Comment on above: Performed By: #### C BC #### [facility] [place] [facility] [address] [place] [address] Dr. Jackie Bhardwaj Erythrocyte distribution width (RBC) [Ratio] 12.9 % Normal 11.0-15.0 [facility] Comment on above: Performed By: #### C BC #### [facility] [place] [facility] [address] [place] [address] Dr. Jackie Bhardwaj Hematocrit (Bld) [Volume fraction] 38.5 % Normal 36.0-48.0 [facility] Comment on above: Performed By: #### C BC #### [facility] [place] [facility] [address] [place] [address] Dr. Jackie Bhardwaj Hemoglobin (Bld) [Mass/Vol] 12.8 g/dL Normal 12.0-16.0 [facility] Comment on above: Performed By: #### C BC #### [facility] [place] [facility] [address] [place] [address] Dr. Jackie Bhardwaj IG # 0.03 10e3/ul Normal 0.00-0.03 [facility] Comment on above: Performed By: #### C BC #### [facility] [place] [facility] [address] [place] [address] Dr. Jackie Bhardwaj IG % 0.3 % Normal 0.0-0.5 [facility] Comment on above: Performed By: #### C BC #### [facility] [place] [facility] [address] [place] [address] Dr. Jackie Bhardwaj LYMPH # 3.9 103/ul Critically high 1.2-3.8 [facility] Comment on above: Performed By: #### C BC #### [facility] [place] [facility] [address] [place] [address] Dr. Jackie Bhardwaj Lymphocytes/100 WBC (Bld) 33.9 % Normal 20.5-60.0 [facility] Comment on above: Performed By: #### C BC #### [facility] [place] [facility] [address] [place] [address] Dr. Jackie Bhardwaj MANUAL DIFF REQ NO Normal [facility] Comment on above: Performed By: #### C BC #### [facility] [place] [facility] [address] [place] [address] Dr. Jackie Bhardwaj MCH (RBC) [Entitic mass] 31.4 pg Normal 26.7-34.0 [facility] Comment on above: Performed By: #### C BC #### [facility] [place] [facility] [address] [address] [address] Jackie Bhardwaj MCHC (RBC) [Mass/Vol] 33.2 g/dL Normal 29.9-35.2 [facility] Comment on above: Performed By: #### C BC #### [facility] [place] [facility] [address] [place] [address] Dr. Jackie Bhardwaj MCV (RBC) [Entitic vol] 94.4 fL Normal 81.0-99.0 [facility] [place] [facility] Comment on above: Performed By: #### C BC #### [facility] [place] [facility] [address] [place] [address] Dr. Jackie Bhardwaj MONO # 0.7 103/ul Normal 0.3-0.8 [facility] [place] [facility] Comment on above: Performed By: #### C BC #### [facility] [place] [facility] [address] [place] [address] Dr. Jackie Bhardwaj Monocytes/100 WBC (Bld) 5.8 % Normal 1.7-12.0 [facility] Comment on above: Performed By: #### C BC #### [facility] [place] [facility] [address] [place] [address] Dr. Jackie Bhardwaj NEUT # 6.6 103/ul Critically high 1.4-6.5 [facility] Comment on above: Performed By: #### C BC #### [facility] [place] [facility] [address] [place] [address] Dr. Jackie Bhardwaj Neutrophils/100 WBC (Bld) 58.0 % Normal 43.0-75.0 [facility] [place] [facility] Comment on above: Performed By: #### C BC #### [facility] [place] [facility] [address] [place] [address] Dr. Jackie Bhardwaj Platelet mean volume (Bld) [Entitic vol] 11.4 fL Normal 9.5-13.5 [facility] [place] [facility] Comment on above: Performed By: #### C BC #### [facility] [place] [facility] [address] [place] [address] Dr. Jackie Bhardwaj PLT 168 103/ul Normal 150-450 [facility] [place] [facility] Comment on above: Performed By: #### C BC #### [facility] [place] [facility] [address] [place] [address] Dr. Jackie Bhardwaj RBC 4.08 106/ul Critically low 4.20-5.40 [facility] Comment on above: Performed By: #### C BC #### [facility] [place] [facility] [address] [address] [address] Jackie Bhardwaj WBC 11.4 103/ul Critically high 4.0-11.0 [facility] Comment on above: Performed By: #### C BC #### [facility] [place] [facility] [address] [address] [address] Jackie Bhardwaj IRONon 12-29-2021 Iron [Mass/Vol] 41.0 ug/dL Critically low 50.0-170.0 [facility] Comment on above: Performed By: #### P TT, PT #### [facility] [place] [facility] [address] [place] [address] Dr. Jackie Bhardwaj US VAC ASST BX BRST LT W CLI Jaya 10-02-2021 US VAC ASST BX BRST LT W CLIP Begin Addendum #1 COLLECTED DATE/TIME: 09/22/2021 09:43 EDT Final Diagnosis Report for [facility] [place] ULTRASOUND GUIDED CORE BIOPSY, LEFT BREAST [...] after pathology results are available. Normal [facility] [place] [facility] MAMMO POST BIOPSY LEFTon MAMMO POST BIOPSY LEFT Patient: LORA MARTINS Exam Date: 09/22/2021 : 1980 Gender:F Ordering : KP CYDNI EPPERSON SAP ANALYST Admission #: [id number] Family : Order #: [id number] CLICK HERE TO VIEW EXAM RADIOLOGY REPORT [...] M.D. on 09/22/2021 at 10:14 Normal [facility] [place] [facility] Complete Blood Count Auto Di ffon 03-03-2021 Basophils (Bld) [#/Vol] 0.1 10*3/uL Normal 0.0-0.2 [facility] Comment on above: Result Comment: PERF ORMED BY: [place] [address] PATHOLOGIST [employer]IE[employer]ICATION[employer] OFFICER MARANDA HOUSTON M.D. Performed By: #### C MP, CBC #### [facility] [address] [place] [address] [place] Basophils/100 WBC (Bld) 0.4 % Normal . [facility] Comment on above: Performed By: #### C MP, CBC #### [facility] [address] [place] [address] Eosinophils (Bld) [#/Vol] 0.1 10*3/uL Normal 0.0-0.45 [facility] Comment on above: Performed By: #### C MP, CBC #### [facility] [address] [place] [address] Eosinophils/100 WBC (Bld) 1.1 % Normal . [facility] Comment on above: Performed By: #### C MP, CBC #### [address] Erythrocyte distribution width (RBC) [Ratio] 13.4 % Normal 11.9-15.3 [facility] Comment on above: Performed By: #### C MP, CBC #### [address] Hematocrit (Bld) [Volume fraction] 40.0 % Normal 34.0-46.4 [facility] Comment on above: Performed By: #### C MP, CBC #### [address] Hemoglobin (Bld) [Mass/Vol] 13.3 g/dL Normal 11.8-15.4 [facility] Comment on above: Performed By: #### C MP, CBC #### [address] Lymphocytes (Bld) [#/Vol] 2.4 10*3/uL Normal 1.00-4.8 [facility] Comment on above: Performed By: #### C MP, CBC #### [address] Lymphocytes/100 WBC (Bld) 20.9 % Normal . [facility] Comment on above: Performed By: #### C MP, CBC #### [address] MCH (RBC) [Entitic mass] 30.5 pg Normal 24.7-34.3 [facility] Comment on above: Performed By: #### C MP, CBC #### [address] MCV (RBC) [Entitic vol] 92.0 fL Normal 80-100 [facility] Comment on above: Performed By: #### C MP, CBC #### [address] Mean Corpuscular HGB Conc 33.2 g/dL Normal 32.0-35.0 [facility] Comment on above: Performed By: #### C MP, CBC #### [address] [place] [address] [place] Monocytes (Bld) [#/Vol] 0.7 10*3/uL Normal 0.0-0.8 [facility] Comment on above: Performed By: #### C MP, CBC #### [facility] [address] [place] [address] [place] Monocytes/100 WBC (Bld) 6.5 % Normal . [facility] Comment on above: Performed By: #### C MP, CBC #### [facility] [address] [place] [address] [place] Neutrophils (Bld) [#/Vol] 8.1 10*3/uL High 1.8-7.7 [facility] Comment on above: Performed By: #### C MP, CBC #### [place] [address] [place] Neutrophils/100 WBC (Bld) 71.1 % Normal . [facility] Comment on above: Performed By: #### C MP, CBC #### [facility] [address] [place] [address] [place] Nucleated RBC/100 WBC (Bld) [Ratio] 0.0 % Normal 0-0.5 [facility] Comment on above: Performed By: #### C MP, CBC #### [place] [address] [place] Platelet mean volume (Bld) [Entitic vol] 9.6 fL Normal 6.3-10.7 [facility] Comment on above: Performed By: #### C MP, CBC #### [facility] [address] [place] [address] [place] Platelets (Bld) [#/Vol] 155 10*3/uL Normal 150-450 [facility] Comment on above: Performed By: #### C MP, CBC #### [facility] [address] [place] [address] [place] RBC (Bld) [#/Vol] 4.35 10*6/uL Normal 3.60-5.00 [facility] Comment on above: Performed By: #### C MP, CBC #### [address] WBC (Bld) [#/Vol] 11.3 10*3/uL High 4.5-11.0 [facility] Comment on above: Performed By: #### C MP, CBC #### [address] Comprehensive Metabolic Pane zelda 03-03-2021 Albumin [Mass/Vol] 4.0 g/dL Normal 3.2-5.5 [facility] Comment on above: Performed By: #### C MP, CBC #### [address] Albumin/Globulin [Mass ratio] 1.8 {ratio} Normal [facility] Comment on above: Performed By: #### C MP, CBC #### [address] ALP [Catalytic activity/Vol] 36 U/L Normal 32-92 [facility] Comment on above: Result Comment: PERF ORMED BY: [place] [address] PATHOLOGIST CHIEF COMMUNICATIONS OFFICER MARANDA HOUSTON M.D. Performed By: #### C MP, CBC #### [address] ALT [Catalytic activity/Vol] 12 U/L Normal 10-60 [facility] Comment on above: Performed By: #### C MP, CBC #### [address] AST [Catalytic activity/Vol] 15 U/L Normal 10-42 [facility] Comment on above: Performed By: #### C MP, CBC #### [address] Bilirubin [Mass/Vol] 0.5 mg/dL Normal 0.3-1.2 [facility] Comment on above: Performed By: #### C MP, CBC #### [address] Calcium [Mass/Vol] 9.4 mg/dL Normal 8.2-10.2 [facility] Comment on above: Performed By: #### C MP, CBC #### [facility] [address] Chloride [Moles/Vol] 104 mmol/L Normal 95-114 [facility] Comment on above: Performed By: #### C MP, CBC #### [facility] [address] CO2 [Moles/Vol] 24.5 mmol/L Normal 22.0-30.0 [facility] Comment on above: Performed By: #### C MP, CBC #### [address] Creatinine [Mass/Vol] 0.75 mg/dL Normal 0.44-1.03 [facility] Comment on above: Performed By: #### C MP, CBC #### [address] Estimated GFR ( Keri > 60 [facility] Comment on above: Result Comment: GFR estimated reference range: According to KDOQI guidelines, <60 ml/min/1.73m2 is sufficient to diagnose a patient with chronic kidney disease. Performed By: #### C MP, CBC #### [address] Estimated GFR (Non- Am > 60 [facility] Comment on above: Performed By: #### C MP, CBC #### [place] [address] [place] Globulin (S) [Mass/Vol] 2.2 g/dL Normal [facility] Comment on above: Performed By: #### C MP, CBC #### [address] Glucose [Mass/Vol] 96 mg/dL Normal 70-100 [facility] Comment on above: Result Comment: [place] Glucose Reference Range is dependent on time and content of last meal. Glucose of more than 200 mg/dL in a nonstressed, ambulatory subject supports the diagnosis of Diabetes Mellitus. ADA recommended reference range Performed By: #### C MP, CBC #### [facility] [address] [place] [address] [place] Potassium [Moles/Vol] 4.1 mmol/L Normal 3.5-5.1 [facility] Comment on above: Performed By: #### C MP, CBC #### [facility] [address] [place] [address] [place] Protein [Mass/Vol] 6.2 g/dL Normal 6.1-7.9 [facility] Comment on above: Performed By: #### C MP, CBC #### [facility] [address] [place] [address] [facility] Sodium [Moles/Vol] 139 mmol/L Normal 136-146 [facility] Comment on above: Performed By: #### C MP, CBC #### [facility] [address] [place] [address] [place] Urea nitrogen [Mass/Vol] 16 mg/dL Normal 9-23 [facility] Comment on above: Performed By: #### C MP, CBC #### [facility] [address] [place] [id number] [place] Vital Signs Date Time Vital Sign Value Performing Clinician Sarthak umana 12-19-2023 23:00-0400 Diastolic blood pressure 91 mm[Hg] Reza Bedoya [facility] 12-19-2023 23:00-0400 Heart rate 63 /min Reza Bedoya [facility] 12-19-2023 23:00-0400 Hourly Rounding Reza Bedoya [facility] 12-19-2023 23:00-0400 Mean blood pressure 107 mm[Hg] Reza Bedoya [facility] 12-19-2023 23:00-0400 Promise to Return Reza Bedoya [facility] 12-19-2023 23:00-0400 SaO2% (BldA) [Mass fraction] 100 % Reza Bedoya [facility] 12-19-2023 23:00-0400 Systolic blood pressure 140 mm[Hg] Reza Aureliano [facility] 12-19-2023 22:00-0400 Diastolic blood pressure 87 mm[Hg] Reza Aureliano [facility] 12-19-2023 22:00-0400 Heart rate 64 /min Reza Aureliano [facility] 12-19-2023 22:00-0400 Hourly Rounding Reza Aureliano [facility] 12-19-2023 22:00-0400 Mean blood pressure 100 mm[Hg] Reza Aureliano [facility] 12-19-2023 22:00-0400 Promise to Return Reza Aureliano [facility] 12-19-2023 22:00-0400 Systolic blood pressure 127 mm[Hg] Reza Aureliano [facility] 12-19-2023 21:00-0400 Diastolic blood pressure 86 mm[Hg] Reza Aureliano [facility] 12-19-2023 21:00-0400 Heart rate 58 /min Reza Aureliano [facility] 12-19-2023 21:00-0400 Hourly Rounding Reza Aureliano [facility] 12-19-2023 21:00-0400 Mean blood pressure 104 mm[Hg] Reza Aureliano [facility] 12-19-2023 21:00-0400 Promise to Return Reza Aureliano [facility] 12-19-2023 21:00-0400 SaO2% (BldA) [Mass fraction] 99 % Reza Aureliano [facility] 12-19-2023 16:05-0400 Body temperature 98.24 [degF] Reza Bedoya [facility] 12-19-2023 16:05-0400 Heart rate 84 /min Reza Bedoya [facility] 12-19-2023 16:05-0400 Respiratory rate 18 /min Reza Bedoya [facility] Encounters Encounter Date Encounter Type Care Provider Facility Start: 01-19-2024 ambulatory Booker Shelley Facility:[facility] Start: 12-26-2023 End: 12-26-2023 ambulatory SAMUEL MCDERMTOT Not Available Start: 12-22-2023 End: 12-22-2023 ambulatory CYNDI EPPERSON Not Available Start: 12-20-2023 [facility]ulatory [facility] Start: 12-19-2023 End: 12-19-2023 Emergency department patient visit Reza Bedoya [facility] Start: 12-19-2023 ambulatory Reza Bedoya Facility:[facility] Start: 09-17-2022 End: 09-17-[address] WILDER OWENS . Facility:[facility] Start: 04-08-2022 End: 04-09-[address] MIKE JEAN Facility:[facility] Start: 03-22-2022 Encounter for preprocedural laboratory examination DR WILDER OWENS . [facility] Start: 03-22-2022 End: 03-23-2022 Evaluation and management [...] EPPERSON Payers Date Payer Category Payer Unknown [id number] 06.24.84 [id number] 1978 Unknown [id number] .. [id number] 1978 Unknown [id number] ..[id number] 0.1.296099.3.579.259 1978 Unknown [id number] ..[id number] 0.1.688681.3.579.259 1978 Unknown [id number] ..[id number] 0.1.711729.3.579.259 1978 Unknown [id number] ..[id number] 0.1.824912.3.579.2.59 1978 Unknown [id number] ..[id number] 0.1.060046.3.579.2.593 1978 Unknown [id number] 2.16.84 0.1.154329.3.579.2.593 1978 Unknown [id number] 2.16.84 0.1.417130.3.579.2.593 1978 Unknown [id number] 2.16.84 0.1.372948.3.579.2.593 1978 Unknown [id number] 2.16.84 0.1.870091.3.579.2.593 1978 Unknown [id number] 2.16.84 0.1.775928.3.579.2.593 1978 Unknown [id number] 2.16.84 0.1.085870.3.579.2.593 1978 Unknown [id number] 2.16.84 0.1.297815.3.579.2.593 1978 Unknown [id number] 2.16.84 0.1.282038.3.579.2.593 1978 Unknown [id number] 2.16.8 40.1.023697.3.579.2.72 1978 Unknown [id number] 2.16.8 40.1.072704.3.579.2.727 1978 Unknown [id number] 2.16.8 40.1.483704.3.579.2.727 1978 Unknown [id number] 2.16.84 0.1.576174.3.579.2.1259 1978 Unknown [id number] 2.16.84 0.1.336295.3.579.2.1259 1978 Unknown [id number] 2.16.8 40.1.014670.3.579.2.727 1978 Unknown [id number] 2.16.8 40.1.963238.3.579.2.727 1978 Unknown [id number] 2.16.8 40.1.618890.3.579.2.727 1959 Unknown [id number] 1959 Unknown [id number] Social History Date Type Detail Facility Tobacco smoking status No Smoking Status Entered [facility] Sex Assigned At Female [facility] Functional Status Date Assessment Result Facility 12-19-2023 Functional Status N/A [facility] Clinical Note 12-20-2023 Note Date & Type Note Facility 12-20-2023 Note Progress Note-Nurse Patient called requesting Zofran after yesterdays visit. Sent to pharmacy per [facility] Hospital Discharge instructions 12-20-2023 Note Date & Type Note Facility 12-20-2023 Hospital Discharg e instructions Patient Education 12/19/2023 23:16:40 Hepatomegaly, Xsbv-tv-Phba Hepatomegaly Hepatomegaly is when the liver is [...] asked to do the following: Medicines Take doqn-eqn-lzrrdnc and prescription medicines only as told by your doctor. Do not take any new medicine unless your doctor says it is okay. ?This includes vitamins, herbs, supplements, and mqdr-dtj-uteqrbk medicines. Some of these can hurt your [...] provider. Document Revised: 03/24/2022 Document Reviewed: 03/24/2022 [employer] Patient Education 2022 [employer]. 12/19/2023 23:16:40 Abdominal Pain, Adult Abdominal Pain, [...] Follow these instructions at home: Medicines Take twkv-mme-zgnlvnn and prescription medicines only as told by [...] Watch your condition for any changes. Take nygz-umy-xrzswot and prescription medicines only as told by [...] provider. Document Revised: 06/13/2020 Document Reviewed: 09/03/2019 [employer] Patient Education 2022 [employer]. Follow Up Care 12/19/2023 16:03:37 With:Booker Shelley Address: [address], [address] [address] [phone] Business (1) When:12/22/2023 With:CYNDI EPPERSON Address: [address] [place] [address] [phone] Business (1) When:Within 3 Day(s) [facility] Clinical Note 12-19-2023 Note Date [...] to do the following: Medicines ? Take fhgh-ifx-fxhaotw and prescription medicines only as told by your doctor. ? Do not take any new medicine unless your doctor says it is okay. ? This includes vitamins, herbs, supplements, and uxao-oei-rynfzrt medicines. Some of these can hurt your [...] provider. Document Revised: 03/24/2022 Document Reviewed: 03/24/2022 [employer] Patient Education ? 2022 [employer] Abdominal Pain, Adult Pain in the [...] these instructions at home: Medicines ? Take btkc-trw-ukpvtkq and prescription medicines only as told by [...] tar. ? You (more content not included)... [facility] Evaluation + Plan note Note Date & Type Note Facility Evaluation + Plan note No data available for this section [facility] Progress note Note Date & Type Note Facility Progress note No data available for this section [facility] Summary Purpose Family History No [...] section and content) DATE CREATED AUTHOR 06/02/2021 [facility] DATE CREATED AUTHOR AUTHOR'S ORGANIZ ATION 09/20/2022 [facility] DATE CREATED AUTHOR AUTHOR'S ORGANIZ ATION 12/20/2023 [facility] DATE CREATED AUTHOR AUTHOR'S ORGANIZ ATION 12/21/2023 [facility] DATE CREATED AUTHOR AUTHOR'S ORGANIZ ATION 12/26/2023 [facility] EPIC DATE CREATED AUTHOR AUTHOR'S ANEUDY KIRBY 01/01/2024 [facility] Patient Care team informtimothyo n (unrecognized section and content) Personnel Name: RADHA KP CYNDI J Address: Address: [address] [place] [address] FOR RECORDS PERTAINING TO PATIENTS WHO ARE [...] BE BASED ON THE PRIMARY CLINICAL RECORDS. [facility] [employer] provides no warranty or guarantee of the accuracy or completeness of information in this document.
[2024-01-10 07:35] VITALS: BP 146/83; PULSE 86; TEMP 36.2; O2SAT 100; BMI 19.8
[2024-01-10] MEDS: LACTATED RINGER'S SOLUTION 1,000 ML 50 ML IV (07:53)
--- NOTE | 2024-01-10 08:07 | W.PM.PROCNOT ---
Date of procedure: 01/10/24 Pre-op diagnosis: GI bleed, change in bowel habits Post-op diagnosis: other (small hiatal hernia ) Procedure: Procedure: Esophagogastroduodenoscopy with biopsy The patient was taken to the endoscopy suite and under monitored conditions was given adequate anesthesia until the patient was sedated.? The endoscope was passed easily into the oropharynx and into the upper esophagus.? The esophagus was completely normal and the z-line was at 34cm.? The scope entered the stomach easily which distended well.? The scope was passed through the pylorus and the duodenal bulb and 1st portion of the duodenum were within normal limits.? No abnormalities identified.? The body of the stomach was carefully inspected and there were no abnormalities identified.??? The scope was retroflexed and there was evidence of a small hiatal hernia.? There was no gastritis in the antrum of the stomach. Biopsies were taken in the antrum for H. Pylori testing.? The patient tolerated the procedure and positioned for colonoscopy. Previous colonoscopy: never procedure: diagnostic colonoscopy The patient was given IV conscious sedation.? The patient's SPO2 remained above 90% throughout the procedure. The colonoscope was inserted per rectum and advanced under direct vision to the cecum without difficulty.? The prep was good.? Findings: Terminal ileum os: normal Cecum/Ascending colon: normal Transverse colon: normal Descending/Sigmoid colon: normal Rectum/Anus: examined in normal and retroflexed positions and was normal Withdrawal Time was (minutes): 8 The colon was decompressed and the scope was removed.? The patient tolerated the procedure well. Recommendations/Plan: 1.? Lifestyle and dietary modifications as discussed 2.? F/U in 10 years for repeat c-scope 3.? Discussed with the family Anesthesia: MAC Surgeon: Stephan Lacey Estimated blood loss (mL): 1 Pathology: other (h/ pylori biopsy ) Condition: stable Disposition: PACU
[2024-01-10 09:23] VITALS: BP 135/83; PULSE 77; TEMP 36.1; O2SAT 100
[2024-01-10 09:38] VITALS: BP 157/92; PULSE 64; O2SAT 100
[2024-01-10 09:53] VITALS: BP 150/83; PULSE 65; O2SAT 100
== END 2024-01-10 10:00 | disposition home or self-care (01) ==
PROVIDERS: PCP Nurse Practitioner; Visit Provider Surgery
PROC: (CPT 813; principal; 2024-01-10 08:35)
DX: R13.10 Dysphagia, unspecified (principal); K92.2 Gastrointestinal hemorrhage, unspecified; R19.4 Change in bowel habit; R10.9 Unspecified abdominal pain; R10.13 Epigastric pain; Z90.710 Acquired absence of both cervix and uterus; Z98.51 Tubal ligation status; Z87.891 Personal history of nicotine dependence; K21.9 Gastro-esophageal reflux disease without esophagitis; R16.0 Hepatomegaly, not elsewhere classified
CPT/HCPCS: 43239; 45378; 88305; 88342; J2704

== ENCOUNTER 2024-01-27 06:51 | Outpatient (OUT) | payer OTHER, SELFPAY ==
--- NOTE | 2024-01-27 06:54 | MM_ITS ---
Patient Name: LORA MARTINS MR#: [id number] : 1980 Exam Date: 01/27/2024 Ordering Doctor: KP Epperson CNP RADIOLOGY REPORT PROCEDURE: MM TOMOSYNTHESIS SCREENING BI COMPARISON: MAMMO POST BIOPSY LEFT, 09/22/2021. MG MAMM DIAGNOSTIC 3D [place] CAD, 04/08/2022. INDICATIONS: Screening for malignant neoplasm Calculator Name NCI Breast Cancer Risk Assessment Tool 5 Year Breast Cancer Risk 1.40% Lifetime Breast Cancer Risk 10.00% Personal Breast Cancer No Personal Ovarian Cancer No Treatments None Family Cancers Grandmother-paternal with breast cancer at age ~55; Father with unknown cancer at age 59; Mother with pancreatic cancer at age 57. LOCATION: [facility] BREAST COMPOSITION: The breasts are heterogeneously dense,which may obscure small masses. FINDINGS: DIAGNOSTIC CATEGORY 2--BENIGN FINDING. NO CHANGE FROM COMPARISON. Scattered benign-appearing nodules are present. Scattered benign-appearing calcifications are present. Scattered benign-appearing lymph nodes are present. RIGHT BREAST: No significant suspicious finding. LEFT BREAST: No significant suspicious finding. RECOMMENDATIONS: ROUTINE MAMMOGRAM AND CLINICAL EVALUATION IN 12 MONTHS. PLEASE NOTE: A NORMAL MAMMOGRAM DOES NOT EXCLUDE THE POSSIBILITY OF BREAST CANCER. A CLINICALLY SUSPICIOUS PALPABLE LUMP SHOULD BE BIOPSIED. Dictated by: Tao Lamb MD on 01/27/2024 at 12:08 Approved by: Tao Lamb MD on 01/27/2024 at 12:09
--- OUTSIDE RECORDS SUMMARY | 2024-01-27 06:54 | XMS_ITS | CCD ---
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 Name Role Phone AICHOLZ, PECAN CLEANER CYNDI Consulting Unavailable AICHHOLZ, PECAN CLEANER CYNDI Primary Care Unavailable AICHOLZ, PECAN CLEANER CYNDI Attending Unavailable AICHHOLZ, PECAN CLEANER CYNDI Admitting Unavailable ROVERTO, DR BURAK Rogers Consulting Unavailable KARASIK ., DR HDZ Consulting Unavailabl e AICHHOLZ, PECAN CLEANER CYNDI Primary Care Unavailable KARASIK ., DR HDZ Attending Unavailabl e KARASIK ., DR HDZ Admitting Unavailabl e PIPPA LOVING Consulting Unavaila ble GEMBUSNUPUR Consulting Unavailable KARASIK ., DR HDZ Consulting Unavailabl e AICHHOLZ, PECAN CLEANER CYNDI Primary Care Unavailable KARASIK ., DR HDZ Attending Unavailabl e KARASIK ., DR HDZ Admitting Unavailabl e RAMON CEDENO Consulting Unavailable AICHHOLZ, PECAN CLEANER CYNDI Primary Care Unavailable KARASIK ., DR HDZ Attending Unavailabl e KARASIK ., DR HDZ Admitting Unavailabl e AICHHOLZ, PECAN CLEANER CYNDI Primary Care Unavailable KARASIK ., DR HDZ Attending Unavailabl e KARASIK ., DR HDZ Admitting Unavailabl e AICHHOLZ, PECAN CLEANER CYNDI Primary Care Unavailable KARASIK ., DR HDZ Attending Unavailabl e KARASIK ., DR HDZ Admitting Unavailabl e KARASIK ., DR HDZ Consulting Unavailabl e AICHHOLZ, PECAN CLEANER CYNDI Primary Care Unavailable KARASIK ., DR HDZ Attending Unavailabl e KARASIK ., DR HDZ Admitting Unavailabl e KARASIK ., DR HDZ Consulting Unavailabl e KARAMLOU, ESTEPHANIA Admitting Unavailable AICHHOLZ, PECAN CLEANER CYNDI Primary Care Unavailable KARASIK ., DR HDZ Attending Unavailabl e TED, DR MIKE Flores Consulting Unavailable AICHHOLZ, PECAN CLEANER CYNDI Primary Care Unavailable AICHHOLZ, PECAN CLEANER CYNDI Attending Unavailable AICHHOLZ, PECAN CLEANER CYNDI Admitting Unavailable AICHHOLZ, PECAN CLEANER CYNDI Consulting Unavailable AICHHOLZ, PECAN CLEANER CYNDI Consulting Unavailable AICHHOLZ, PECAN CLEANER CYNDI Primary Care Unavailable AICHHOLZ, PECAN CLEANER CYNDI Attending Unavailable AICHHOLZ, PECAN CLEANER CYNDI Admitting Unavailable AICHHOLZ, PECAN CLEANER CYNDI Consulting Unavailable AICHHOLZ, PECAN CLEANER CYNDI Primary Care Unavailable AICHHOLZ, PECAN CLEANER CYNDI Attending Unavailable AICHHOLZ, PECAN CLEANER CYNDI Admitting Unavailable AICHHOLZ, PECAN CLEANER CYNDI Consulting Unavailable AICHHOLZ, PECAN CLEANER CYNDI Primary Care Unavailable AICHHOLZ, PECAN CLEANER CYNDI Attending Unavailable AICHHOLZ, PECAN CLEANER CYNDI Admitting Unavailable KARASIK ., DR HDZ Consulting Unavailabl e AICHHOLZ, PECAN CLEANER CYNDI Primary Care Unavailable KARASIK ., DR HDZ Attending Unavailabl e KARASIK ., DR HDZ Admitting Unavailabl e KARASIK ., DR HDZ Consulting Unavailabl e AICHHOLZ, PECAN CLEANER CYNDI Primary Care Unavailable KARASIK ., DR HDZ Attending Unavailabl e KARASIK ., DR HDZ Admitting Unavailabl e HEATHER SWEENEY Consulting Unavailable KARASIK ., DR HDZ Procedure Practitioner Pina vailable ADINA YIP Consulting Unavailable AICHHOLZ, PECAN CLEANER CYNDI Primary Care Unavailable KARASIK ., DR HDZ Attending Unavailabl e KARASIK ., DR HDZ Admitting Unavailabl e AICHHOLZ, CYNDI J Primary Care Physician Reza Bedoya Attending Unavailable DO Samuel Lacey Attending Provider Samuel Lacey Attending Unavailable Samuel Lacey Admitting Unavailable AICHHOLZ, CYNDI Attending Unavailable SAMUEL LACEY Attending Unavailable AICHHOLZ, CYNDI Attending Unavailable Reza Bedoya Attending Unavailable Booker Shelley Attending Unavaila ble SarBooker scanlon Attending Unavaila ble Allergies Allergy Classification Reported Allergen(s) Allergy Type Date of Onset Reaction(s) Facility (1 source) Penicillins Drug allergy (disorder) 5 [facility] Repository (1 source) Misc-Other; Translations: [Misc-Other] Propensity to adverse reactions (disorder) 2 [facility] Rep[facility] (6 sources) Amoxicillin; Translations: [amoxicillin] Drug Allergy Unkempt [facility] Medications Current Medications Medication Drug Class(es) Dates Sig (Normalized) Sig (Original) dicyclomine hydrochloride 10 mg oral capsule (1 source) Anticholinergic Start: 12-19-2023 End: 12-26-2023 take 1 capsule by mouth every six hours as needed for muscle spasms Bentyl 10 mg Cap 10 mg = 1 cap(s), Oral, q6hr, PRN Spasm, X 7 day(s), # 30 cap(s), Refills(s) 0, Pharmacy: [facility]/pharmacy #[id number], 170.2, cm, 12/19/23 [...] pain, # 12 tab(s), Refills(s) 0, Pharmacy: [facility]/pharmacy #[id number], 170.2, cm, 12/19/23 [...] Test Name Value Interpretation Reference Range Facility Gastroenterology Office/Clin ic Noteon 01-19-2024 Gastroenterology Office/Clinic Note Gastroenterology Office/Clinic Note Chief Complaint Abdominal pain HPI Staff Patient is a(n) 43 year old female who presents today for a f/u from [facility] 12/19/23 for acute abdominal pain and hepatomegaly. Fhx fatty liver disease. Denies previous EGD/Colonoscopy. Denies Fhx colon cancer. Denies blood thinners/GLP-1 agonists. Patient states that last Tuesday she had colonoscopy and EGD at [facility]. Abdominal pain: When did you first have this pain: 2-3 months Quality (sharp, dull):constant pressure type pain and when eating she will get left sided pain that is sharp. Constant or comes or go: constant location and radiation: upper abdomen and left side. Relation to food: Food does not improve/worsen symptoms. Has lack of appetite. Worse with food. EGD/Colon 01/10/24 @ [facility]: Normal colon CT 12/15/23 @ [facility]: IMPRESSION: 1. Heterogeneous enlarged liver. Correlate with labs. 2. No acute bowel or inflammatory findings. Normal appendix. 3. Simple 1 cm right renal cyst. RUQ US 12/16/23: IMPRESSION: 1. No acute or specific findings to account for patient's symptoms. 2. No suspicious abnormality of the liver. CT 12/19/23: IMPRESSION: NO ACUTE INTRA-ABDOMINAL PROCESS IDENTIFIED. HIDA 01/04 @ [facility]: IMPRESSION: 1. Normal nuclear medicine HIDA scan. Laboratory Results CBC CMP PT PTT Basophil Absolute: 0.1 E9/L (12/19/23) A/G Ratio: 2 (12/19/23) INR: 1.05 (12/19/23) PTT: 29 second(s) (12/19/23) Basophil Auto: 0.5 % (12/19/23) AGAP: 10 mEq/L (12/19/23) PT: 11.8 second(s) (12/19/23) Eos Absolute: 0.1 E9/L (12/19/23) Albumin Lvl: 4.3 gm/dL (12/19/23) Eos Auto: 0.6 % (12/19/23) Alk Phos: 28 Int._Unit/L (12/19/23) Hct: 42.6 % (12/19/23) ALT: 14 Int._Unit/L (12/19/23) HGB: 14.7 gm/dL (12/19/23) AST: 14 Int._Unit/L (12/19/23) Lymph Absolute: 2.2 E9/L (12/19/23) Bili Total: 1 mg/dL (12/19/23) Lymph Auto: 18.7 % (12/19/23) BUN: 17 mg/dL (12/19/23) MCH: 31.5 pg (12/19/23) BUN/Creat Ratio: 19 (12/19/23) MCHC: 34.5 gm/dL (12/19/23) Calcium Lvl: 9.7 mg/dL (12/19/23) MCV: 91.3 fL (12/19/23) Chloride: 103 mmol/L (12/19/23) Latimer Absolute: 0.6 E9/L (12/19/23) CO2: 29 mmol/L (12/19/23) Latimer Auto: 4.8 % (12/19/23) Creatinine: 0.9 mg/dL (12/19/23) MPV: 8.9 fL (12/19/23) Globulin: 2.1 gm/dL (12/19/23) Neutro Absolute: 8.7 E9/L High (12/19/23) Glucose Lvl: 92 mg/dL (12/19/23) Neutro Auto: 75.4 % High (12/19/23) Potassium Lvl: 4.3 mmol/L (12/19/23) Platelet: 173 E9/L (12/19/23) Sodium Lvl: 138 mmol/L (12/19/23) RBC: 4.7 E12/L (12/19/23) Total Protein: 6.4 gm/dL (12/19/23) RDW: 13.1 % (12/19/23) WBC: 11.5 E9/L High (12/19/23) Lipase: 18 unit/L (12/19/23) History of Present Illness constant pressure in the epigastric area severe pain in LUQ with eating radiates to R shoulder plate limiting her intake Has occasional also vomiting, minimal food intake lost 15 pounds in the past couple months and thinks started Review of Systems PHQ Score Initial Depression Screen Score: 0 SCORE Physical Exam Vitals & Measurements HR: 78(Peripheral) BP: 138/86 HT: 67 in HT: 170 cm WT: 58.2 kg WT: 128.04 lb BMI: 20.14 Assessment/Plan 1. Abdominal pain (R10.9: Unspecified abdominal pain) With early satiety, lost 15 pounds in the past 2 months, before that she had rare episodes like that but now it is constant in the last 2 months Differential includes gastroparesis, functional, other rare etiologies like MALS are considered We will start with gastric emptying study if tolerated Per report she had biopsies for H. pylori on the EGD, will request hold on H. pylori breath test for now Neck step will consider BuSpar or TCA or even mirtazapine Imaging including CT abdomen, ultrasound gallbladder and HIDA scan were negative per report Ordered: H. pylori Breath Test NM Gastric Emptying Study 2. Large liver (R16.0: Hepatomegaly, not elsewhere classified) Consider FibroScan in the future Ordered: H. pylori Breath Test 3. Family history of pancreatic cancer (Z80.0: Family history of malignant neoplasm of digestive organs) Mother at the age of 58, will discuss MRCP in the future Orders: ondansetron, 4 mg = 1 tab(s), Oral, q8hr, PRN Nausea/Vomiting, # 60 tab(s), Refills(s) 3, Pharmacy: [facility]/pharmacy #[id number], 170, cm, 01/19/24 12:39:00 EDT, Height/Length Dosing, 58.2, kg, 01/19/24 12:39:00 EDT, Weight Dosing Follow-up No qualifying data available Problem List/Past Medical History Ongoing Abdominal pain Large liver Historical No qualifying data Procedure/Surgical History Colonoscopy (01/10/2024), EGD (esophagogastroduode noscopic) electrohydraulic lithotripsy of bezoar in stomach (01/10/2024), Resection of Bilateral Fallopian Tubes, Via Natural or Artificial Opening, Resection of Uterus, Via Natural or Artificial Opening. Medications dicyclomine 10 mg Cap omeprazole 20 mg Cap-DR, BID Zofran ODT 4 mg Tab-Dis, 4 mg= 1 tab(s), Oral, (more content not included)... Normal [facility] Comment on above: Result Comment: Elec tronically Signed By: Daphney MCKINLEY, Booker Jenkins\.br\Date and Time Signed: 01/19/24 13:[address] Abdomen/Pelvis w/ Contras ton 12-20-2023 CT Abdomen/Pelvis w/ Contrast Exam Date/Time: 12/19/2023 [...] Lymph nodes: No pathologically enlarged lymph nodes. Mesentery/peritoneum : No ascites or mass. Retroperitoneum: No inflammatory [...] 300 Contrast amount in ml's: 100 Normal [facility] ED Note-Physicianon 12-20-19 ED Note-Physician ED Note-Physician Basic Information Time Seen: Emily Troy PA-C 12/19/2023 17:17 Chief Complaint was at [facility] for diaphram pain. had ct's done. still [...] The patient states she was seen at [facility] last Tuesday. She states they did [...] concentrating, paranoia, anhedonia, lack of energy, beatriz Hematologic/lymphati c: Denies any purpura, petechiae, excessive bleeding, bruising [...] in length (more content not included)... Normal [facility] Comment on above: Result Comment: Elec tronically Signed By: Emily Troy PA-C\.br\Date and Time Signed: 12/19/23 23:05 EDT\.br\Electronically Co-Signed By: Emily Troy PA-C\.br\Date and Time Co-Signed: 12/19/23 23:06 EDT\.br\Electronically Co-Signed By: Emily Troy PA-C\.br\Date and Time Co-Signed: 12/19/23 23:22 EDT\.br\Electronically Co-Signed By: Reza Bedoya DO\.br\Date and Time Co-Signed: 12/20/23 07:02 EDT BMPon 12-19-2023 Anion gap [Moles/Vol] 10 mmol/L Normal 6-16 [facility] Comment on above: Performed By: #### 2 [id number] #### [facility] [address] [place] [address] Calcium [Mass/Vol] 9.7 mg/dL Normal 8.9-11.1 [facility] Comment on above: Performed By: #### 2 [id number] #### [facility] [address] [place] [address] Chloride [Moles/Vol] 103 mmol/L Normal 101-111 [facility] Comment on above: Performed By: #### 2 [id number] #### [facility] [address] [place] [address] CO2 [Moles/Vol] 29 mmol/L Normal 21-31 [facility] Comment on above: Performed By: #### 2 [id number] #### [facility] [address] [place] [address] Creatinine [Mass/Vol] 0.9 mg/dL Normal 0.5-1.3 [facility] Comment on above: Performed By: #### 2 [id number] #### [facility] [address] [place] [address] Glucose [Mass/Vol] 92 mg/dL Normal 55-199 [facility] Comment on above: Performed By: #### 2 [id number] #### [facility] [address] [place] [address] Potassium [Moles/Vol] 4.3 mmol/L Normal 3.5-5.3 [facility] Comment on above: Performed By: #### 2 130094 #### [facility] [address] [place] [address] Sodium [Moles/Vol] 138 mmol/L Normal 135-145 [facility] Comment on above: Performed By: #### 2 253463 #### [facility] [address] [place] [address] Urea nitrogen [Mass/Vol] 17 mg/dL Normal 5-21 [facility] Comment on above: Performed By: #### 2 [id number] #### [facility] [address] [place] [address] Urea nitrogen/Creatinine [Mass ratio] 19 No Units Normal 10-20 [facility] Comment on above: Performed By: #### 2 714227 #### [facility] [address] [place] [address] CBC w/ Auto Diffon 4 Basophils/100 WBC (Bld) 0.5 % Normal 0.0-2.0 [facility] Comment on above: Performed By: #### 2 365121 #### [facility] [address] [place] [address] Basophils/Leukocytes Auto (Bld) [Pure # fraction] 0.1 E9/L Normal 0.0-0.2 [facility] Comment on above: Performed By: #### 2 [id number] #### [facility] [address] [place] [address] Eosinophils (Bld) [#/Vol] 0.1 E9/L Normal 0.0-0.5 [facility] Comment on above: Performed By: #### 2 081393 #### [facility] [address] [place] [address] Eosinophils/100 WBC (Bld) 0.6 % Normal 0.0-8.0 [facility] Comment on above: Performed By: #### 2 444690 #### [facility] [address] [place] [address] Erythrocyte distribution width (RBC) [Ratio] 13.1 % Normal 10.9-14.2 [facility] Comment on above: Performed By: #### 2 257048 #### [facility] [address] [place] [address] Hematocrit (Bld) [Volume fraction] 42.6 % Normal 34.0-46.0 [facility] Comment on above: Performed By: #### 2 292485 #### [facility] [address] [place] [address] Hemoglobin (Bld) [Mass/Vol] 14.7 g/dL Normal 12.0-16.0 [facility] Comment on above: Performed By: #### 2 [id number] #### [facility] [address] [place] [address] Lymphocytes (Bld) [#/Vol] 2.2 E9/L Normal 1.0-4.0 [facility] Comment on above: Performed By: #### 2 304702 #### [facility] [address] [place] [address] Lymphocytes/100 WBC (Bld) 18.7 % Normal 14.0-50.0 [facility] Comment on above: Performed By: #### 2 113280 #### [facility] [address] [place] [address] MCH (RBC) [Entitic mass] 31.5 pg Normal 27.0-34.0 [facility] Comment on above: Performed By: #### 2 465213 #### [facility] [address] [place] [address] MCHC (RBC) [Mass/Vol] 34.5 g/dL Normal 31.4-36.0 [facility] Comment on above: Performed By: #### 2 350332 #### [facility] [address] [place] [address] MCV (RBC) [Entitic vol] 91.3 fL Normal 80.0-100.0 [facility] Comment on above: Performed By: #### 2 030271 #### [facility] [address] [place] [address] Monocytes (Bld) [#/Vol] 0.6 E9/L Normal 0.2-1.0 [facility] Comment on above: Performed By: #### 2 135982 #### [facility] [address] [place] [address] Neutrophils (Bld) [#/Vol] 8.7 E9/L High 2.0-7.5 [facility] Comment on above: Performed By: #### 2 086856 #### [facility] [address] [place] [address] Neutrophils/100 WBC (Bld) 75.4 % High 36.0-75.0 [facility] Comment on above: Performed By: #### 2 573155 #### [facility] [address] [place] [address] Platelet mean volume (Bld) [Entitic vol] 8.9 fL Normal 6.4-10.8 [facility] Comment on above: Performed By: #### 2 253114 #### [facility] [address] [place] [address] Platelets (Bld) [#/Vol] 173.0 E9/L Normal 150.0-500.0 [facility] Comment on above: Performed By: #### 2 690175 #### [facility] [address] [place] [address] RBC (Bld) [#/Vol] 4.7 E12/L Normal 4.3-5.9 [facility] Comment on above: Performed By: #### 2 905101 #### [facility] [address] [place] [address] WBC corrected for nucl RBC Auto (Bld) [#/Vol] 11.5 E9/L High 4.0-11.0 [facility] Comment on above: Performed By: #### 2 497148 #### [facility] [address] [place] [address] CHEMISTRYOrdered By: SYSTEM SYSTEM on 12-19-2023 Albumin [...] High Sensitivity Troponin I Instructions For Use, [place], December 2017) Anion gap [Moles/Vol] 10 mmol/L [...] Instructions For Use, Carlos Von, December 2017) Urea nitrogen [Mass/Vol] 17 mg/dL Normal 5 - 21 mg/dL Remisol Chem Urea nitrogen/Creatinine [Mass ratio] 19 mg/mg Normal 10 - 20 Remisol Chem COAGULATIONOrdered By: Courtney Sanches on 12-19-2023 aPTT Coag (PPP) [Time] 29.0 s Normal 25.1 - 36.5 second(s) [facility] Comment on above: Interpretive Data: Idris greenwood 15 days - 4 weeks 1 - [...] the same coagulation reagent and instrumentation as [facility] Currently there are no coagulation studies available worldwide for children to 14 days, and no normal ranges. Heparin therapeutic range (represented by Anti-Factor Xa activity of 0.2 - 0.4 U/mL) corresponds to PTT of 56.6 - 109.0 sec. INR Coag (PPP) [Relative time] 1.05 {INR} Invalid Interpretation Code [facility] Comment on above: Interpretive Data: I NR results are specifically intended to assess patients stabilized on long-term Anticoagulation therapy suggested INR s Less Intensive Anticoagulation 2.0 3.0 Conventional Range 3.0 4.5 PT Coag (PPP) [Time] 11.8 s Normal 9.4 - 1 2.5 second(s) [facility] Comment on above: Interpretive Data: [...] the same coagulation reagent and instrumentation as [facility] Currently there are no coagulation studies available worldwide for children to 14 days, and no normal ranges. ED Clinical Summaryon 2023 ED Clinical Summary ED Clinical Summary [address] [address] ED Clinical Summary Person Information Name: LORA MARTINS/NewAbi Age: 43 Years : 1980 Sex: Female Language: Lao PCP: CYNDI EPPERSON CNP Marital Status: Single [...] 12/19/2023 23:16:39 12/19/2023 23:16:39 12/19/2023 23:16:39 ADDRESS: [address] [place] [id number] PHYS DOC NOTES: MEDICAL INFORMATION: Prescriptions Given: New Medications [id number], [address], [place] [id number], [phone] dicyclomine (Bentyl 10 mg Cap) 1 Capsules By Mouth every 6 hours as needed Spasm for 7 Days. Refills: 0. tramadol (traMADOL 50 mg Tab) 0.5-1 tab(s) By Mouth every 6 hours as needed as needed for pain. Refills: 0. PATIENT EDUCATION INFORMATION: Instructions: Hepatomegaly, Sago-jy-Rchw; Abdominal Pain, Adult Follow up: With: Address: When: Booker Shelley [address], [address], [address] [phone] Business (1) In 3 days 12/22/2023 With: Address: When: CYNDI EPPERSON [address] [facility], [place], [place] [phone] Business (1) In 3 days DIAGNOSIS: 1:Acute abdominal pain; 2:Hepatomegaly Normal [facility] ED Patient Summaryon 024 ED Patient Summary ED Patient Summary [address] [address] Patient Discharge Instructions Person Information Name: LORA MARTINS Age: 43 Years Arrival Date: 12/19/2023 15:58:56 Discharge Diagnosis: 1:Acute abdominal pain; 2:Hepatomegaly Primary Care Physician: CYNDI EPPERSON CNP Provider Information Primary Provider: Reza Bedoya DO Advanced Is Project Manager:None The exam and treatment you received in the Emergency Department were for an urgent problem and are not intended as complete care. It is important that you follow up with a doctor, nurse practitioner, or physician?s engineer first assistant for ongoing care. If your symptoms [...] Follow-up Instructions: With: Address: When: Booker Shelley [address] [place] [address], [facility], [address] [phone] Business (1) In 3 days 12/22/2023 With: Address: When: CYNDI EPPERSON [address] [place], [place] [phone] [facility] (1) In 3 days In the event that this physician does not participate in your insurance network, please consult with your insurance company to find a nearby participating provider. Patient Education Materials: Hepatomegaly, Ocdt-zz-Gkww; Abdominal Pain, Adult A MESSAGE TO ALL PATIENTS REGARDING OPIOIDS PRESCRIPTION OPIOIDS: WHAT YOU NEED TO KNOW Prescription opioids can be used to help relieve uqcdqsfr-hg-yxwnfg pain and are often prescribed following a [...] guidance from the Food and Drug Administration (www.fda.gov/Drugs/R esourcesForYou). ? Visit www.cdc.gov/drugover dose to learn about the risks of opioids abuse (more content not included)... Normal [facility] HEMATOLOGYOrdered By: SYSTEM SYSTEM on 12-19-2023 Basophils/100 [...] 12-19-2023 Albumin [Mass/Vol] 4.3 g/dL Normal 3.3-5.0 [facility] Comment on above: Performed By: #### 2 [id number] #### [facility] [address] [place] [address] Albumin/Globulin (S) [Mass conc ratio] 2.0 Normal 1.1-2.2 [facility] Comment on above: Performed By: #### 2 693283 #### [facility] [address] [place] [address] ALP [Catalytic activity/Vol] 28 Int._Unit/L Normal 21-98 [facility] Comment on above: Performed By: #### 2 [id number] #### [facility] [address] [place] [address] ALT No additional P-5'-P [Catalytic activity/Vol] 14 Int._Unit/L Normal 6-46 [facility] Comment on above: Performed By: #### 2 [id number] #### [facility] [address] [place] [address] AST [Catalytic activity/Vol] 14 Int._Unit/L Normal 5-43 [facility] Comment on above: Performed By: #### 2 465253 #### [facility] [address] [place] [address] Bilirubin [Mass/Vol] 1.0 mg/dL Normal 0.0-1.1 [facility] Comment on above: Performed By: #### 2 695783 #### [facility] [address] [place] [address] Bilirubin.direct [Mass/Vol] 0.1 mg/dL Normal 0.0-0.4 [facility] Comment on above: Performed By: #### 2 869834 #### [facility] [address] [place] [address] Bilirubin.indirect [Mass or moles/Vol] 0.9 mg/dL Normal 0.1-0.9 [facility] Comment on above: Performed By: #### 2 670187 #### [facility] [address] [place] [address] Globulin (S) [Mass/Vol] 2.1 g/dL Normal 1.4-4.0 [facility] Comment on above: Performed By: #### 2 972974 #### [facility] [address] [place] [address] Protein [Mass/Vol] 6.4 g/dL Normal 6.0-7.8 [facility] Comment on above: Performed By: #### 2 [id number] #### [facility] [address] [place] [address] Lipase Levelon 12-19-2023 Lipase [Catalytic activity/Vol] 18 U/L Normal 13-58 [facility] Comment on above: Performed By: #### 2 [id number] #### [facility] [address] [place] [address] PT & PTTon 12-19-2023 aPTT Coag (PPP) [Time] 29.0 second(s) Normal 25.1-36.5 [facility] Comment on above: Result Comment: Para meter 15 days - 4 weeks 1 - 5 months 6 - 11 months 1 - 5 years 6 - 10 years 11 - 17 years PTT Mean: 35.4 (27.6-45.6) Mean: 33.5 (24.8-40.7) Mean: 32.4 (25.1-40.7) Mean: 31.6 (24.0-39.2) Mean: 31.6 (26.9-38.7) Mean: 31.0 (24.6-38.4) Pediatric Reference ranges were obtained from a study by danielle Avilez. prepared from 1437 samples obtained at 7 different centers using the same coagulation reagent and instrumentation as [facility]. Currently there are no coagulation studies available worldwide for children to 14 days, and no normal ranges. Heparin therapeutic range (represented by Anti-Factor Xa activity of 0.2 - 0.4 U/mL) corresponds to PTT of 56.6 - 109.0 sec. Performed By: #### 1 [id number] #### [facility] [place] [facility] [address] [place] [address] INR Coag (PPP) [Relative time] 1.05 {INR} Invalid Interpretation Code [facility] Comment on above: Result Comment: INR results are specifically intended to assess patients stabilized on long-term Anticoagulation therapy suggested INR?s ?Less Intensive Anticoagulation? 2.0 ? 3.0 Conventional Range 3.0 ? 4.5 Performed By: #### 1 [id number] #### [facility] [place] [facility] [address] [place] [address] PT Coag (PPP) [Time] 11.8 second(s) Normal 9.4-12.5 [facility] [place] [facility] Comment on above: Result Comment: 15 d [...] ranges were obtained from a study by danielle Avilez. prepared from 1437 samples obtained at 7 different centers using the same coagulation reagent and instrumentation as [facility]. Currently there are no coagulation studies available worldwide for children to 14 days, and no normal ranges. Performed By: #### 1 [id number] #### [facility] [place] [facility] [address] [place] [address] Troponin 0 Hr.on 12-19-2023 Troponin HS 2.70 pg/mL Low 10.10-27.10 [facility] [place] [facility] Comment on above: Result Comment: The 95% CI (Confidence Interval) PPV (Positive Predictive Value) for myocardial infarction in females is 38 pg/mL, in males 51 pg/mL. The results should be used in conjunction with clinical conditions of myocardial infarction. (Access High Sensitivity Troponin I Instructions For Use, [employer], December 2017) Performed By: #### 1 [id number] #### [facility] [place] [facility] [address] [place] [address] Troponin 1 Hr.on 12-19-2023 Troponin HS 2.40 pg/mL Low 10.10-27.10 [facility] [place] [facility] Comment on above: Order Comment: 1809 Result Comment: The 95% CI (Confidence Interval) PPV (Positive Predictive Value) for myocardial infarction in females is 38 pg/mL, in males 51 pg/mL. The results should be used in conjunction with clinical conditions of myocardial infarction. (Access High Sensitivity Troponin I Instructions For Use, [employer], December 2017) Performed By: #### 1 [id number] #### [facility] [place] [facility] [address] [place] [address] eGFRon 12-19-2023 eGFR 80 mL/min/1.73 m2 Normal >=59 [facility] [place] [facility] Comment on above: Order Comment: Order added by Discern Expert. Performed By: #### 1 [id number] #### [facility] [place] [facility] [address] [place] [address] MG MAMM DIAGNOSTIC 3D [place] CA Don 04-08-2022 MG MAMM DIAGNOSTIC 3D [place] CAD Patient: LORA MARTINS Exam Date: 04/08/2022 : 1980 Gender:F Ordering : KP EPPERSON CNP Admission #: [id number] Family : Order #: [id number] CLICK HERE TO VIEW EXAM RADIOLOGY REPORT [...] Ovarian Cancer No Treatments None Family Cancers Grandmother-paternal with breast cancer at age 55; Father with unknown cancer at age 59; Mother with pancreatic cancer at age 57. LOCATION: [facility] BREAST COMPOSITION: Heterogeneously dense,which may obscure [...] MD on 04/08/2022 at 15:21 Normal [facility] US BREAST [place] LIMITEDon 12-0 US BREAST [place] LIMITED Patient: LORA MARTINS Exam Date: 04/08/2022 : 1980 Gender:F Ordering : KP EPPERSON [facility] Admission #: [id number] Family : Order #: [id number] CLICK HERE TO VIEW EXAM RADIOLOGY REPORT [...] Ovarian Cancer No Treatments None Family Cancers Grandmother-paternal with breast cancer at age 55; Father with unknown cancer at age 59; Mother with pancreatic cancer at age 57. LOCATION: [facility] BREAST COMPOSITION: Heterogeneously dense,which may obscure [...] MD on 04/08/2022 at 15:21 Normal [facility] BUNon 03-23-2022 Urea nitrogen [Mass/Vol] 18.0 mg/dL Normal 7.0-18.0 [facility] Comment on above: Performed By: #### B UN, CREA #### [facility] [address] [place] [address] Dr. Jackie Bhardwaj CBC AUTO DIFFon 03-23-2022 BASO # 0.0 103/ul Normal 0.0-0.1 [facility] Comment on above: Performed By: #### P TT, PT #### [facility] [address] [place] [address] Dr. Jackie Bhardwaj Basophils/100 WBC (Bld) 0.2 % Normal 0.2-2.0 [facility] Comment on above: Performed By: #### P TT, PT #### [facility] [address] [place] [address] Dr. Jackie Bhardwaj EO # 0.1 103/ul Normal 0.0-0.7 [facility] Comment on above: Performed By: #### P TT, PT #### [facility] [address] [place] [address] Dr. Jackie Bhardwaj Eosinophils/100 WBC (Bld) 0.4 % Critically low 0.9-7.0 [facility] Comment on above: Performed By: #### P TT, PT #### [facility] [address] [place] [address] Dr. Jackie Bhardwaj Erythrocyte distribution width (RBC) [Ratio] 12.8 % Normal 11.0-15.0 [facility] Comment on above: Performed By: #### P TT, PT #### [facility] [address] [place] [address] Dr. Jackie Bhardwaj Hematocrit (Bld) [Volume fraction] 30.7 % Critically low 36.0-48.0 [facility] Comment on above: Performed By: #### P TT, PT #### [facility] [address] [address] [address] Jackie Bhardwaj Hemoglobin (Bld) [Mass/Vol] 10.3 g/dL Critically low 12.0-16.0 [facility] Comment on above: Performed By: #### P TT, PT #### [facility] [address] [place] [address] Dr. Jackie Bhardwaj IG # 0.04 10e3/ul Critically high 0.00-0.03 [facility] Comment on above: Performed By: #### P TT, PT #### [facility] [address] [place] [address] Dr. Jackie Bhardwaj IG % 0.3 % Normal 0.0-0.5 [facility] Comment on above: Performed By: #### P TT, PT #### [facility] [address] [place] [address] Dr. Jackie Bhardwaj LYMPH # 2.7 103/ul Normal 1.2-3.8 [facility] Comment on above: Performed By: #### P TT, PT #### [facility] [address] [place] [address] Dr. Jackie Bhardwaj Lymphocytes/100 WBC (Bld) 21.0 % Normal 20.5-60.0 [facility] Comment on above: Performed By: #### P TT, PT #### [facility] [address] [place] [address] Dr. Jackie Bhardwaj MANUAL DIFF REQ NO Normal [facility] Comment on above: Performed By: #### P TT, PT #### [facility] [address] [place] [address] Dr. Jackie Bhardwaj MCH (RBC) [Entitic mass] 30.7 pg Normal 26.7-34.0 [facility] Comment on above: Performed By: #### P TT, PT #### [facility] [address] [place] [address] Dr. Jackie Bhardwaj MCHC (RBC) [Mass/Vol] 33.6 g/dL Normal 29.9-35.2 [facility] Comment on above: Performed By: #### P TT, PT #### [facility] [address] [place] [address] Dr. Jackie Bhardwaj MCV (RBC) [Entitic vol] 91.6 fL Normal 81.0-99.0 [facility] Comment on above: Performed By: #### P TT, PT #### [facility] [address] [place] [address] Dr. Jackie Bhardwaj MONO # 0.8 103/ul Normal 0.3-0.8 [facility] Comment on above: Performed By: #### P TT, PT #### [facility] [address] [place] [address] Dr. Jackie Bhardwaj Monocytes/100 WBC (Bld) 6.2 % Normal 1.7-12.0 [facility] Comment on above: Performed By: #### P TT, PT #### [facility] [address] [place] [address] Dr. Jackie Bhardwaj NEUT # 9.2 103/ul Critically high 1.4-6.[address] [facility] Comment on above: Performed By: #### P TT, PT #### [facility] [address] [place] [address] Dr. Jackie Bhardwaj Neutrophils/100 WBC (Bld) 71.9 % Normal 43.0-75.0 [facility] Comment on above: Performed By: #### P TT, PT #### [facility] [address] [place] [address] Dr. Jackie Bhardwaj Platelet mean volume (Bld) [Entitic vol] 11.2 fL Normal 9.5-13.5 [facility] Comment on above: Performed By: #### P TT, PT #### [facility] [address] [address] [address] Jackie Bhardwaj PLT 135 103/ul Critically low 150-450 [facility] Comment on above: Performed By: #### P TT, PT #### [facility] [address] [address] [address] Jackie Bhardwaj RBC 3.35 106/ul Critically low 4.20-5.40 [facility] Comment on above: Performed By: #### P TT, PT #### [facility] [address] [address] [address] Jackie Bhardwaj WBC 12.8 103/ul Critically high 4.0-11.0 [facility] Comment on above: Performed By: #### P TT, PT #### [facility] [address] [place] [address] Dr. Jackie Bhardwaj CREATININEon 03-23-2022 Creatinine [Mass/Vol] 0.72 mg/dL Normal 0.55-1.02 [facility] Comment on above: Performed By: #### B UN, CREA #### [facility] [address] [place] [address] Dr. Jackie Bhardwaj EGFR-AF FIJIAN >60 Normal >=60 [facility] Comment on above: Performed By: #### B UN, CREA #### [facility] [address] [place] [address] Dr. Jackie Bhardwaj EGFR-NON AF FIJIAN >60 Normal >=60 [facility] Comment on above: Performed By: #### B UN, CREA #### [facility] [address] [place] [address] Dr. Jackie Bhardwaj ANTIBODY ID PANELon 03-22-20 22 ANTIBODY ID PANEL Antibody ID Anti-D Blood Bank Notes testing performed at [facility] reference lab [facility] Comment on above: Performed By: #### P TT, PT #### [facility] [address] [place] [address] Dr. Jackie Bhardwaj URon 03-22-2022 , QUAL Negative Normal NEGATIVE [facility] Comment on above: Performed By: #### P TT, PT #### [facility] [address] [address] [address] Jackie Bhardwaj Covid-19 PCR ([facility])on 03-09 SARS-CoV-2 (COVID-19) RNA JOHN+probe Ql (Unsp spec) Not detected Normal NOT DETECTED [facility] Comment on above: Result Comment: This test is not yet approved or cleared by the [place] FDA. When there are no FDA-approved or cleared tests available, and other criteria are met, FDA can make tests available under an emergency access mechanism called an Emergency Use Authorization (EUA). The EUA for this test is supported by the [employer] of Health and Human Service's (HHS's) declaration [...] SARS-CoV-2. Performed By: #### C VDTB #### [facility] [address] [place] [address] Dr. Jackie Bhardwaj TYPE AND SCREENon 03-18-2022 TYPE AND SCREEN Negative Normal [facility] Comment on above: Performed By: #### P TT, PT #### [facility] [address] [place], [place] [address] Dr. Jackie Bhardwaj LIVER PROFILEon 03-10-2022 Albumin [Mass/Vol] 4.1 g/dL Normal 3.4-5.0 [facility] Comment on above: Performed By: #### L SHYLA BMP #### [facility] [address] [place] [address] [address] [address] Jackie Bhardwaj Albumin/Globulin [Mass ratio] 1.6 {ratio} Normal [facility] Comment on above: Performed By: #### L SHYLA BMP #### [facility] [address] [address] [address] Jackie Bhardwaj ALP [Catalytic activity/Vol] 41 U/L Critically low 46-116 [facility] Comment on above: Performed By: #### L IVER, BMP #### [facility] [address] [address] [address] Jackie Bhardwaj ALT [Catalytic activity/Vol] 16 U/L Normal 14-59 [facility] Comment on above: Performed By: #### L IVER, BMP #### [facility] [address] [address] [address] Jackie Bhardwaj AST [Catalytic activity/Vol] 14 U/L Critically low 15-37 [facility] Comment on above: Performed By: #### L IVER, BMP #### [facility] [address] [place] [address] Dr. Jackie Bhardwaj BILI, CONJUGATED 0.1 mg/dL Normal 0.0-0.2 [facility] Comment on above: Performed By: #### L IVER, BMP #### [facility] [address] [address] [address] Jackie Bhardwaj Bilirubin [Mass/Vol] 0.3 mg/dL Normal 0.2-1.0 [facility] Comment on above: Performed By: #### L IVER, BMP #### [facility] [address] [address] [address] Jackie Bhardwaj Globulin (S) [Mass/Vol] 2.5 g/dL Normal [facility] Comment on above: Performed By: #### L IVER, BMP #### [facility] [address] [address] [address] Jackie Bhardwaj Protein [Mass/Vol] 6.6 g/dL Normal 6.4-8.2 [facility] Comment on above: Performed By: #### L IVER, BMP #### [facility] [address] [address] [address] Jackie Bhardwaj PROF CHEM 8 (BAS METB)on Anion gap [Moles/Vol] 11.6 mmol/L Normal [facility] Comment on above: Performed By: #### L IVER, BMP #### [facility] [address] [place] [address] Dr. Jackie Bhardwaj Calcium [Mass/Vol] 8.8 mg/dL Normal 8.5-10.1 [facility] Comment on above: Performed By: #### L IVER, BMP #### [facility] [address] [place] [address] Dr. Jackie Bhardwaj Chloride [Moles/Vol] 102 mmol/L Normal 98-107 [facility] Comment on above: Performed By: #### L IVER, BMP #### [facility] [address] [place] [address] Dr. Jackie Bhardwaj CO2 [Moles/Vol] 28.9 mmol/L Normal 21.0-32.0 [facility] Comment on above: Performed By: #### L IVER, BMP #### [facility] [address] [place] [address] Dr. Jackie Bhardwaj Creatinine [Mass/Vol] 0.78 mg/dL Normal 0.55-1.02 [facility] Comment on above: Performed By: #### L IVER, BMP #### [facility] [address] [place] [address] Dr. Jackie Bhardwaj EGFR-AF FIJIAN >60 Normal >=60 [facility] Comment on above: Performed By: #### L IVER, BMP #### [facility] [address] [place] [address] Dr. Jackie Bhardwaj EGFR-NON AF FIJIAN >60 Normal >=60 [facility] Comment on above: Performed By: #### L IVER, BMP #### [facility] [address] [place] [address] Dr. Jackie Bhardwaj Glucose [Mass/Vol] 81 mg/dL Normal 74-106 [facility] Comment on above: Performed By: #### L IVER, BMP #### [facility] [address] [place] [address] Dr. Jackie Bhardwaj Potassium [Moles/Vol] 3.5 mmol/L Normal 3.5-5.1 [facility] Comment on above: Performed By: #### L IVER, BMP #### [facility] [address] [place] [address] Dr. Jackie Bhardwaj Sodium [Moles/Vol] 139 mmol/L Normal 136-145 [facility] Comment on above: Performed By: #### L IVER, BMP #### [facility] [address] [place] [address] Dr. Jackie Bhardwaj Urea nitrogen [Mass/Vol] 21.0 mg/dL Critically high 7.0-18.0 [facility] Comment on above: Performed By: #### L IVER, BMP #### [facility] [address] [place] [address] Dr. Jackie Bhardwaj Urea nitrogen/Creatinine [Mass ratio] 26.9 mg/mg Normal [facility] Comment on above: Performed By: #### L IVER, BMP #### [facility] [address] [place] [address] Dr. Jackie Bhardwaj PROTIMEon 03-10-2022 INR Coag (PPP) [Relative time] 0.98 {INR} Normal [facility] Comment on above: Performed By: #### P TT, PT #### [facility] [address] [place] [address] Dr. Jackie Bhardwaj INR GUIDELINES SEE BELOW Normal [facility] Comment on above: Result Comment: BILLY RED INR: 2.0 - 3.0 CONDITIONS NOT LISTED BELOW 2.5 - 3.5 FOR PROSTHETIC HEART VALVE REPLACEMENT 2.5 - 3.5 RECURRENT THROMBOSIS Performed By: #### P TT, PT #### [facility] [address] [place] [address] Dr. Jackie Bhardwaj PT Coag (PPP) [Time] 10.6 s Normal 9.0-11.6 [facility] Comment on above: Performed By: #### P TT, PT #### [facility] [address] [place] [address] Dr. Jackie Bhardwaj PTTon 03-10-2022 aPTT Coag (Bld) [Time] 26.3 s Normal 22.3-36.2 [facility] Comment on above: Performed By: #### P TT, PT #### [facility] [address] [place] [address] Dr. Jackie Bhardwaj CBC AUTO DIFFon 03-09-2022 BASO # 0.1 103/ul Normal 0.0-0.1 [facility] Comment on above: Performed By: #### P TT, PT #### [facility] [address] [place] [address] Dr. Jackie Bhardwaj Basophils/100 WBC (Bld) 0.6 % Normal 0.2-2.0 [facility] Comment on above: Performed By: #### P TT, PT #### [facility] [address] [place] [address] Dr. Jackie Bhardwaj EO # 0.2 103/ul Normal 0.0-0.7 [facility] Comment on above: Performed By: #### P TT, PT #### [facility] [address] [place] [address] Dr. Jackie Bhardwaj Eosinophils/100 WBC (Bld) 1.8 % Normal 0.9-7.0 [facility] Comment on above: Performed By: #### P TT, PT #### [facility] [address] [place] [address] Dr. Jackie Bhardwaj Erythrocyte distribution width (RBC) [Ratio] 12.7 % Normal 11.0-15.0 [facility] Comment on above: Performed By: #### P TT, PT #### [facility] [address] [place] [address] Dr. Jackie Bhardwaj Hematocrit (Bld) [Volume fraction] 39.1 % Normal 36.0-48.0 [facility] Comment on above: Performed By: #### P TT, PT #### [facility] [address] [place] [address] Dr. Jackie Bhardwaj Hemoglobin (Bld) [Mass/Vol] 12.8 g/dL Normal 12.0-16.0 [facility] Comment on above: Performed By: #### P TT, PT #### [facility] [address] [place] [address] Dr. Jackie Bhardwaj IG # 0.03 10e3/ul Normal 0.00-0.03 [facility] Comment on above: Performed By: #### P TT, PT #### [facility] [address] [place] [address] Dr. Jackie Bhardwaj IG % 0.3 % Normal 0.0-0.5 [facility] Comment on above: Performed By: #### P TT, PT #### [facility] [address] [place] [address] Dr. Jackie Bhardwaj LYMPH # 3.5 103/ul Normal 1.2-3.8 [facility] Comment on above: Performed By: #### P TT, PT #### [facility] [address] [place] [address] Dr. Jackie Bhardwaj Lymphocytes/100 WBC (Bld) 32.7 % Normal 20.5-60.0 [facility] Comment on above: Performed By: #### P TT, PT #### [facility] [address] [place] [address] Dr. Jackie Bhardwaj MANUAL DIFF REQ NO Normal [facility] Comment on above: Performed By: #### P TT, PT #### [facility] [address] [place] [address] Dr. Jackie Bhardwaj MCH (RBC) [Entitic mass] 30.7 pg Normal 26.7-34.0 [facility] Comment on above: Performed By: #### P TT, PT #### [facility] [address] [place] [address] Dr. Jackie Bhardwaj MCHC (RBC) [Mass/Vol] 32.7 g/dL Normal 29.9-35.2 [facility] Comment on above: Performed By: #### P TT, PT #### [facility] [address] [place] [address] Dr. Jackie Bhardwaj MCV (RBC) [Entitic vol] 93.8 fL Normal 81.0-99.0 [facility] Comment on above: Performed By: #### P TT, PT #### [facility] [address] [address] [address] Jackie Bhardwaj MONO # 0.7 103/ul Normal 0.3-0.8 [facility] Comment on above: Performed By: #### P TT, PT #### [facility] [address] [place] [address] Dr. Jackie Bhardwaj Monocytes/100 WBC (Bld) 6.3 % Normal 1.7-12.0 [facility] Comment on above: Performed By: #### P TT, PT #### [facility] [address] [place] [address] Dr. Jackie Bhardwaj NEUT # 6.2 103/ul Normal 1.4-6.5 [facility] Comment on above: Performed By: #### P TT, PT #### [facility] [address] [place] [address] Dr. Jackie Bhardwaj Neutrophils/100 WBC (Bld) 58.3 % Normal 43.0-75.0 [facility] Comment on above: Performed By: #### P TT, PT #### [facility] [address] [place] [address] Dr. Jackie Bhardwaj Platelet mean volume (Bld) [Entitic vol] 11.5 fL Normal 9.5-13.5 [facility] Comment on above: Performed By: #### P TT, PT #### [facility] [address] [place] [address] Dr. Jackie Bhardwaj PLT 167 103/ul Normal 150-450 [facility] Comment on above: Performed By: #### P TT, PT #### [facility] [address] [place] [address] Dr. Jackie Bhardwaj RBC 4.17 106/ul Critically low 4.20-5.[address] [facility] Comment on above: Performed By: #### P TT, PT #### [facility] [address] [place] [address] Dr. Jackie Bhardwaj WBC 10.6 103/ul Normal 4.0-11.0 [facility] Comment on above: Performed By: #### P TT, PT #### [facility] [address] [place] [address] Dr. Jackie Bhardwaj IRONon 03-09-2022 Iron [Mass/Vol] 73.0 ug/dL Normal 50.0-170.[address] [facility] Comment on above: Performed By: #### P TT, PT #### [facility] [address] [address] [address] Jackie Bhardwaj PREG HCG QUALon 02-01-2022 , QUAL Negative Normal NEGATIVE [facility] Comment on above: Performed By: #### P REG #### [facility] [address] [address] [address] Jackie Bhardwaj , QUAL Negative Normal NEGATIVE [facility] Comment on above: Result Comment: Prev iously reported as: [id number] On 02/01/2022 06:45 By DM9 Performed By: #### P TT, PT #### [facility] [address] [place] [address] Dr. Jackie Bhardwaj Covid-19 PCR ([facility])on 01-08 SARS-CoV-2 (COVID-19) RNA JOHN+probe Ql (Unsp spec) Not detected Normal NOT DETECTED [facility] Comment on above: Result Comment: This test is not yet approved or cleared by the [place] FDA. When there are no FDA-approved or cleared tests available, and other criteria are met, FDA can make tests available under an emergency access mechanism called an Emergency Use Authorization (EUA). The EUA for this test is supported by the Tele[employer] of Health and Human Service's (HHS's) declaration [...] SARS-CoV-2. Performed By: #### C VDTBH #### [facility] [address] [place] [address] Dr. Jackie Bhardwaj [facility]on [facility]09 SARS-CoV-2 (COVID-19) RNA JOHN+probe Ql (Unsp spec) Not detected Normal NOT DETECTED [facility] Comment on above: Result Comment: This test is not yet approved or cleared by the [place] FDA. When there are no FDA-approved or cleared tests available, and other criteria are met, FDA can make tests available under an emergency access mechanism called an Emergency Use Authorization (EUA). The EUA for this test is supported by the [place] of Health and Human Service's (HHS's) declaration [...] Performed By: #### P TT, PT #### [facility] [address] [place] [address] Dr. Jackie Bhardwaj CBC AUTO DIFFon 12-29-2021 BASO # 0.1 103/ul Normal 0.0-0.1 [facility] Comment on above: Performed By: #### C BC #### [facility] [address] [place] [address] Dr. Jackie Bhardwaj Basophils/100 WBC (Bld) 0.4 % Normal 0.2-2.0 [facility] Comment on above: Performed By: #### C BC #### [facility] [address] [place] [address] Dr. Jackie Bhardwaj EO # 0.2 103/ul Normal 0.0-0.7 [facility] Comment on above: Performed By: #### C BC #### [facility] [address] [place] [address] Dr. Jackie Bhardwaj Eosinophils/100 WBC (Bld) 1.6 % Normal 0.9-7.0 [facility] Comment on above: Performed By: #### C BC #### [facility] [address] [place] [address] Dr. Jackie Bhardwaj Erythrocyte distribution width (RBC) [Ratio] 12.9 % Normal 11.0-15.0 [facility] Comment on above: Performed By: #### C BC #### [facility] [address] [place] [address] Dr. Jackie Bhardwaj Hematocrit (Bld) [Volume fraction] 38.5 % Normal 36.0-48.0 [facility] Comment on above: Performed By: #### C BC #### [facility] [address] [place] [address] Dr. Jackie Bhardwaj Hemoglobin (Bld) [Mass/Vol] 12.8 g/dL Normal 12.0-16.0 [facility] Comment on above: Performed By: #### C BC #### [facility] [address] [place] [address] Dr. Jackie Bhardwaj IG # 0.03 10e3/ul Normal 0.00-0.03 [facility] Comment on above: Performed By: #### C BC #### [facility] [address] [place] [address] Dr. Jackie Bhardwaj IG % 0.3 % Normal 0.0-0.5 [facility] Comment on above: Performed By: #### C BC #### [facility] [address] [place] [address] Dr. Jackie Bhardwaj LYMPH # 3.9 103/ul Critically high 1.2-3.[address] [facility] Comment on above: Performed By: #### C BC #### [facility] [address] [place] [address] Dr. Jackie Bhardwaj Lymphocytes/100 WBC (Bld) 33.9 % Normal 20.5-60.0 [facility] Comment on above: Performed By: #### C BC #### [facility] [address] [place] [address] Dr. Jackie Bhardwaj MANUAL DIFF REQ NO Normal [facility] Comment on above: Performed By: #### C BC #### [facility] [address] [place] [address] Dr. Jackie Bhardwaj MCH (RBC) [Entitic mass] 31.4 pg Normal 26.7-34.0 [facility] Comment on above: Performed By: #### C BC #### [facility] [address] [place] [address] Dr. Jackie Bhardwaj MCHC (RBC) [Mass/Vol] 33.2 g/dL Normal 29.9-35.2 [facility] Comment on above: Performed By: #### C BC #### [facility] [address] [place] [address] Dr. Jackie Bhardwaj MCV (RBC) [Entitic vol] 94.4 fL Normal 81.0-99.0 [facility] Comment on above: Performed By: #### C BC #### [facility] [address] [place] [address] Dr. Jackie Bhardwaj MONO # 0.7 103/ul Normal 0.3-0.8 [facility] Comment on above: Performed By: #### C BC #### [facility] [address] [place] [address] Dr. Jackie Bhardwaj Monocytes/100 WBC (Bld) 5.8 % Normal 1.7-12.0 [facility] Comment on above: Performed By: #### C BC #### [facility] [address] [place] [address] Dr. Jackie Bhardwaj NEUT # 6.6 103/ul Critically high 1.4-6.[address] [facility] Comment on above: Performed By: #### C BC #### [facility] [address] [place] [address] Dr. Jackie Bhardwaj Neutrophils/100 WBC (Bld) 58.0 % Normal 43.0-75.0 [facility] Comment on above: Performed By: #### C BC #### [facility] [address] [place] [address] Dr. Jackie Bhardwaj Platelet mean volume (Bld) [Entitic vol] 11.4 fL Normal 9.5-13.5 [facility] Comment on above: Performed By: #### C BC #### [facility] [address] [address] [address] Jackie Bhardwaj PLT 168 103/ul Normal 150-450 [facility] Comment on above: Performed By: #### C BC #### [facility] [id number] Jackie Bhardwaj RBC 4.08 106/ul Critically low 4.20-5.40 [facility] Comment on above: Performed By: #### C BC #### [facility] [address] [address] [address] Jackie Bhardwaj WBC 11.4 103/ul Critically high 4.0-11.0 [facility] Comment on above: Performed By: #### C BC #### [facility] [address] [address] [address] Jackie Bhardwaj IRONon 12-29-2021 Iron [Mass/Vol] 41.0 ug/dL Critically low 50.0-170.0 [facility] Comment on above: Performed By: #### P TT, PT #### [facility] [address] [place] [address] Dr. Jackie Bhardwaj US VAC ASST BX BRST LT W CLI Jaya 10-02-2021 US VAC ASST BX BRST LT W CLIP Begin Addendum #1 COLLECTED DATE/TIME: 09/22/2021 09:43 EDT Final Diagnosis Report for [facility] [place] ULTRASOUND GUIDED CORE BIOPSY, LEFT BREAST [...] provided after pathology results are available. Normal [facility] MAMMO POST BIOPSY LEFTon MAMMO POST BIOPSY LEFT Patient: LORA MARTINS Exam Date: 09/22/2021 : 1980 Gender:F Ordering : KP EPPERSON [facility] Admission #: [id number] Family : Order #: [id number] CLICK HERE TO VIEW EXAM RADIOLOGY REPORT [...] Nielsen M.D. on 09/22/2021 at 10:14 Normal [facility] Vital Signs Date Time Vital Sign Value Performing Clinician Sarthak umana 12-19-2023 23:00-0400 Diastolic blood pressure 91 mm[Hg] [employer] [facility] 12-19-2023 23:00-0400 Heart rate 63 /min [employer] [facility] 12-19-2023 23:00-0400 Hourly Rounding [employer] [facility] 12-19-2023 23:00-0400 Mean blood pressure 107 mm[Hg] [employer] [facility] 12-19-2023 23:00-0400 Promise to Return Reza Aureliano [facility] 12-19-2023 23:00-0400 SaO2% (BldA) [Mass fraction] 100 % Reza Aureliano [facility] 12-19-2023 23:00-0400 Systolic blood pressure 140 mm[Hg] Reza Aureliano [facility] 12-19-2023 22:00-0400 Diastolic blood pressure 87 mm[Hg] Reza Aureliano [facility] 12-19-2023 22:00-0400 Heart rate 64 /min Reza Aureliano [facility] 12-19-2023 22:00-0400 Hourly Rounding Reza Aureliano [facility] 12-19-2023 22:00-0400 Mean blood pressure 100 mm[Hg] Reza Aureliano [facility] 12-19-2023 22:00-0400 Promise to Return Reza Aureliano [facility] 12-19-2023 22:00-0400 Systolic blood pressure 127 mm[Hg] Reza Aureliano [facility] 12-19-2023 21:00-0400 Diastolic blood pressure 86 mm[Hg] Reza Aureliano [facility] 12-19-2023 21:00-0400 Heart rate 58 /min Reza Aureliano [facility] 12-19-2023 21:00-0400 Hourly Rounding Reza Aureliano [facility] 12-19-2023 21:00-0400 Mean blood pressure 104 mm[Hg] Reza Aureliano [facility] 12-19-2023 21:00-0400 Promise to Return Reza Aureliano [facility] 12-19-2023 21:00-0400 SaO2% (BldA) [Mass fraction] 99 % Reza Bedoya [facility] 12-19-2023 16:05-0400 Body temperature 98.24 [degF] Reza Bedoya [facility] 12-19-2023 16:05-0400 Heart rate 84 /min Reza Bedoya [facility] 12-19-2023 16:05-0400 Respiratory rate 18 /min Reza Bedoya [facility] Encounters Encounter Date Encounter Type Care Provider Facility Start: 04-19-2024 ambulatory Celeste Talal Sarmini Facility:[facility] Start: 01-19-2024 End: 01-19-2024 ambulatory Celeste Talid Nicolemini Facility:[facility] Start: 01-11-2024 End: 01-11-2024 ambulatory CYNDI AICHHOLZ Not Available Start: 01-10-2024 End: 01-10-2024 ambulatory Samuel Deepthi [facility] Work Phone: Start: 01-10-2024 End: 01-10-2024 Departed Referred DO Samuel Lacey Work Phone: [facility] Start: 12-26-2023 End: 12-26-2023 ambulatory SAMUEL LACEY Not Available Start: 12-22-2023 End: 12-22-2023 ambulatory CYNDI AICHHOLZ Not Available Start: 12-20-2023 ambulatory Reza Bedoya [facility] Start: 12-19-2023 End: 12-19-2023 Emergency department patient visit Reza Bedoya [facility] Start: 12-19-2023 ambulatory Reza Bedoya Facility:[facility] Start: 09-17-2022 End: 09-17-[address] WILDER OWENS . Facility:[facility] Start: 04-08-2022 End: 04-09-[address] MIKE JEAN Facility:[facility] Start: 03-22-2022 Encounter for preprocedural laboratory examination DR WILDER OWENS . [facility] Start: 03-22-2022 End: 03-23-2022 Evaluation and [...] Facility:[facility] Start: 12-29-2021 End: 12-30-2021 ambulatory KP FROSTA RADHA Facility:[facility] Start: 11-02-2021 ambulatory [employer] CYNDI JINNYZ Facil ity:[facility] Start: 10-29-2021 ambulatory [employer] CYNDI JINNYZ Facil ity:[facility] Start: 09-22-2021 End: 09-22-2021 ambulatory [employer] CYNDI RADHA Facility:[facility] Procedures Date Procedure Procedure Detail Performing Clinician Start: 03-22-2022 Resection of Bilater al Fallopian Tubes, Via Natural or Artificial Opening [employer] CYNDI RADHA Start: 03-22-2022 Resection of Uterus, Via Natural or Artificial Opening [employer] CYNDI RADHA Payers Date Payer Category Payer Self-pay [id number] 1980 Unknown [id number] .16.84 0.1.453684.3.579.2.593 1980 Unknown [id number] 2.16.84 0.1.712602.3.579.2.593 1980 Unknown [id number] .16.84 0.1.768595.3.579.2.593 1978 Unknown [id number] .16.84 0.1.706298.3.579.2.593 1978 Unknown [id number] .16.84 0.1.835566.3.579.2.593 1978 Unknown [id number] .16.84 0.1.698888.3.579.2.593 1978 Unknown [id number] .16.84 0.1.264729.3.579.2.593 1978 Unknown [id number] .16.84 0.1.748118.3.579.2.593 1978 Unknown [id number] .16.84 0.1.443262.3.579.2.593 1978 Unknown [id number] .16.84 0.1.472196.3.579.2.593 1978 Unknown [id number] .16.84 0.1.904874.3.579.2.593 1978 Unknown [id number] .16.84 0.1.186142.3.579.2.593 1978 Unknown [id number] .16.84 0.1.729954.3.579.2.59 1978 Unknown [id number] .16.84 0.1.679131.3.579.2.593 1978 Unknown [id number] .16.84 0.1.888054.3.579.2.593 1978 Unknown [id number] 2.16.8 40.1.964877.3.579.2.727 1978 Unknown [id number] 2.16.8 40.1.377609.3.579.2.727 1978 Unknown [id number] 2.16.8 40.1.107118.3.579.2.727 1978 Unknown [id number] 2.16.84 0.1.719061.3.579.2.9 1978 Unknown [id number] 2.16.84 0.1.206938.3.579.2.9 1978 Unknown [id number] 2.16.84 0.1.606148.3.579.2.9 1978 Unknown [id number] 2.16.8 40.1.174634.3.579.2.727 1978 Unknown [id number] 2.16.8 40.1.825502.3.579.2.727 1978 Unknown [id number] 2.16.8 40.1.815350.3.579.2.727 1978 Unknown [id number] 2.16.8 40.1.034132.3.579.2.7 1978 Unknown [id number] 2.16.8 40.1.715275.3.579.2.727 1959 Unknown [id number] 1959 Unknown [id number] Unknown [place] BC/BS [id number] Unknown [id number] 2.16.8 40.1.584235.3.579.2.531 Social History Date Type Detail Facility Tobacco smoking status [facility] Sex Assigned At Female [facility] Start: 1980 Sex Assigned At Female F [facility] Functional Status Date Assessment Result Facility 12-19-2023 Functional Status N/A [facility] Clinical Note 12-20-2023 Note Date & Type Note Facility 12-20-2023 Note Progress Note-Nurse Patient called requesting Aubreedayami after yesterdays visit. Sent to pharmacy per [facility] Discharge instructions 12-20-2023 Note Date & Type Note Facility 12-20-2023 Hospital Discharg e instructions Patient Education 12/19/2023 23:16:40 Hepatomegaly, Vkdi-ut-Lzkv Hepatomegaly Hepatomegaly is when the liver is [...] asked to do the following: Medicines Take ledc-sxz-kvhkgrw and prescription medicines only as told by your doctor. Do not take any new medicine unless your doctor says it is okay. ?This includes vitamins, herbs, supplements, and qzaw-gjp-lztvvva medicines. Some of these can hurt your [...] provider. Document Revised: 03/24/2022 Document Reviewed: 03/24/2022 [employer] (acquired by [employer]) Patient Education 2022 [employer]. 12/19/2023 23:16:40 Abdominal Pain, Adult Abdominal Pain, [...] Follow these instructions at home: Medicines Take ggml-gii-gjsngja and prescription medicines only as told by [...] Watch your condition for any changes. Take qxka-gsg-uefmcov and prescription medicines only as told by [...] provider. Document Revised: 06/13/2020 Document Reviewed: 09/03/2019 [employer] (acquired by [employer]) Patient Education 2022 [employer]. Follow Up Care 12/19/2023 16:03:37 With:Booker Shelley Address: [address] [place] [address] [phone] [phone] Business (1) When:12/22/2023 With:CYNDI EPPERSON Address: [address] [place] [phone] Business (1) When:Within 3 Day(s) [facility] Clinical Note 12-19-2023 Note Date & Type [...] to do the following: Medicines ? Take nqea-cdb-tiptxfb and prescription medicines only as told by your doctor. ? Do not take any new medicine unless your doctor says it is okay. ? This includes vitamins, herbs, supplements, and qkve-mcn-nixcupp medicines. Some of these can hurt your [...] provider. Document Revised: 03/24/2022 Document Reviewed: 03/24/2022 [employer] (acquired by [employer]) Patient Education ? 2022 [employer]. Abdominal Pain, Adult Pain in the abdomen [...] these instructions at home: Medicines ? Take euvm-itz-batgram and prescription medicines only as told by [...] tar. ? You (more content not included)... [facility] Evaluation + Plan note Note Date & Type Note Facility Evaluation + Plan note No data available for this section [facility] Evaluation note Note Date & Type Note Facility Evaluation note No assessment information availa [facility] Work Phone: Progress note Note Date & Type Note Facility Progress note No data available for this section [facility] Summary Purpose Family History No Family History Records Found No data available [...] Found Advance Directives No Advanced Directives Records Found Advance Directive Response Recorded Date/ Time Advance Directives No March 03, 2021 9:55am Additional Source Comments INFORMATION SOURCE (unrecogn ized section and content) DATE CREATED AUTHOR 09/20/2022 [facility] DATE CREATED AUTHOR AUTHOR'S ORGANIZ ATION 12/20/2023 [facility] DATE CREATED AUTHOR AUTHOR'S ORGANIZ ATION 12/21/2023 [facility] DATE CREATED AUTHOR AUTHOR'S ORGANIZ ATION 01/11/2024 [facility] DATE CREATED AUTHOR AUTHOR'S ORGANIZ ATION 01/13/2024 [facility] EPIC DATE CREATED AUTHOR AUTHOR'S ORGANIZ ATION 01/21/2024 [facility] DATE CREATED AUTHOR AUTHOR'S ORGANIZ ATION 01/26/2024 [facility] Patient Care team informatio n (unrecognized section and content) Team Status: Inactive Member Role Status Dates Samuel Lacey DO Attending Provider Active Star t: January 10, 2024 End: January 10, 2024 Goals (unrecognized section and content) Goals may be documented in a n alternate section FOR RECORDS PERTAINING TO PATIENTS WHO ARE [...] BE BASED ON THE PRIMARY CLINICAL RECORDS. [facility] [employer] [facility]. provides no warranty or guarantee of the accuracy or completeness of information in this document.
== END 2024-01-27 06:52 | disposition home or self-care (01) ==
LOC: MAMMO 06:51
PROVIDERS: PCP Nurse Practitioner; Visit Provider Nurse Practitioner
DX: Z12.31 Encounter for screening mammogram for malignant neoplasm of breast (principal); Z80.3 Family history of malignant neoplasm of breast; Z80.8 Family history of malignant neoplasm of other organs or systems
CPT/HCPCS: 77063; 77067

== ENCOUNTER 2024-02-09 02:21 | Emergency (ER) | payer OTHER, SELFPAY ==
[2024-02-09 02:25] VITALS: BP 176/95; PULSE 71; TEMP 37; O2SAT 100; BMI 19.2
--- NOTE | 2024-02-09 02:32 | ECG_ITS ---
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
--- NOTE | 2024-02-09 02:49 | ED_ITS ---
HPI - Abdominal Pain General Chief Complaint: Abdominal Pain Stated Complaint: ABD PAIN Time Seen by Provider: 02/09/24 02:28 Source: patient Mode of arrival: walk-in Limitations: no limitations History of Present Illness HPI narrative: This 43-year-old female who has recently undergone colonoscopy and upper endoscopy testing as well as a stomach emptying test at [facility] earlier this week presents for evaluation of nausea vomiting and epigastric abdominal pain that at times radiates into her left shoulder blade area. The patient was seen here in December by myself and had CT scanning and labs done. At that time it was noted that she had hepatomegaly on her CT scan. Labs were normal. She was discharged home with requisition for an ultrasound of the abdomen and underwent HIDA testing. I reviewed those reports and both were negative. She then underwent colonoscopy and endoscopy in this facility that showed mild hiatal hernia. The patient also states that she was told she had gastritis at that time however the surgeons report does not note gastritis. She takes a proton pump inhibitor and Zofran prior to eating and took this tonight prior to eating but then became nauseated and vomited after eating. She denies any chest pain or shortness of breath. She has not had any dizziness or syncope. Related Data Home Medications ?Medication ?Instructions ?Recorded ?Confirmed dicyclomine 20 mg tablet 20 mg PO QID PRN abdominal pain 12/30/23 02/09/24 omeprazole 20 mg capsule,delayed 20 mg PO DAILY 12/30/23 02/09/24 release ondansetron 4 mg disintegrating 4 mg PO Q8H PRN nausea and vomiting 12/30/23 02/09/24 tablet Allergies Allergy/AdvReac Type Severity Reaction Status Date / Time amoxicillin Allergy Intermediate Hives Verified 02/09/24 02:31 penicillin G Allergy Unknown Rash Verified 02/09/24 02:31 Opioids - Morphine Analogues AdvReac Intermediate Vomiting Verified 02/09/24 02:31 Review of Systems ROS Status of ROS 10 or more systems reviewed and unremark able except as noted in history and below [facility] Medical History (Updated 02/09/24 @ 04:00 by Mayuri Diaz MD) Dysphagia ?R13.10 - Dysphagia, unspecified (ICD-10) GERD (gastroesophageal reflux disease) ?K21.9 - Gastro-esophageal reflux disease without esophagitis (ICD-10) Hepatomegaly ?R16.0 - Hepatomegaly, not elsewhere classified (ICD-10) Abdominal pain ?R10.9 - Unspecified abdominal pain (ICD-10) Surgical History (Updated 01/02/24 @ 11:22 by Mala Romero, DAVID) History of salpingectomy ?Z90.79 - Acquired absence of other genital organ(s) (ICD-10) History of tonsillectomy ?Z90.89 - Acquired absence of other organs (ICD-10) H/O: hysterectomy ?Z90.710 - Acquired absence of both cervix and uterus (ICD-10) Family History (Updated 12/30/23 @ 11:10 by Tanya Bryant) Mother Family history of cancer Brother Family history of diabetes mellitus FH: mental illness Social History (Updated 01/02/24 @ 11:20 by Mala Romero, DAVID) Within the past year, how often did you have a drink containing alcohol: monthly or less Smoking status: Former smoker Non-prescribed substance use: denies use Previous occupational history: [employer] Highest level of school completed/degree received: Associate degree: occupational, technical, vocational program Little interest or pleasure in doing things: not at all Feeling down, depressed, or hopeless: not at all Exam Narrative Exam Narrative: Vital signs and Nursing Notes reviewed: Patient is afebrile with a normal pulse, blood pressure is elevated, she is not hypoxic with pulse ox of 100% on room air General: Awake, alert, oriented, no acute distress, lying comfortably on the stretcher, no active vomiting HEENT: Normocephalic atraumatic, mucous membranes are moist and pink, eyes are clear, normal conjunctiva, vision is grossly intact, no scleral icterus Neck: Supple, no meningeal signs, no anterior or posterior cervical lymphadenopathy Chest: Lungs are clear to auscultation with good air entry, there is no wheezing rhonchi or rales appreciated no accessory muscle use, patient is speaking in complete sentences-no chest wall tenderness to palpation CVS: Regular rate and rhythm S1-S2, no murmurs rubs or gallops, pulses are brisk and equal bilaterally ABD: Soft, flat, nondistended, mild epigastric tenderness with no rebound guarding or rigidity, bowel sounds are normal Extremities: Moving all extremities, no lower extremity tenderness or swelling noted, negative Homans' sign, pulses are brisk and equal bilaterally Skin: Normal in appearance without rash,pallor, petechiae or purpura Neuro: No focal deficits Constitutional Vital Signs, click to edit/add: Last Vital Signs Temp 98.6 F 02/09/24 02:25 Pulse 71 02/09/24 02:25 Resp 18 02/09/24 02:25 BP 176/95 H 02/09/24 02:25 Pulse Ox 100 02/09/24 02:25 O2 Del Method Room Air 02/09/24 02:25 Course Vital Signs Vital signs: Vital Signs Temperature 98.6 F 02/09/24 02:25 Pulse Rate 71 02/09/24 02:25 Respiratory Rate 18 02/09/24 02:25 Blood Pressure 176/95 H 02/09/24 02:25 Pulse Oximetry 100 02/09/24 02:25 Oxygen Delivery Method Room Air 02/09/24 02:25 Temperature 98.6 F 02/09/24 02:25 Pulse Rate 71 02/09/24 02:25 Respiratory Rate 18 02/09/24 02:25 Blood Pressure 176/95 H 02/09/24 02:25 Pulse Oximetry 100 02/09/24 02:25 Oxygen Delivery Method Room Air 02/09/24 02:25 MDM - Abdominal Pain MDM Narrative Medical decision making narrative: This 43-year-old female who has had several months of abdominal pain presents for evaluation of recurrent epigastric abdominal pain associated with nausea and vomiting despite taking her PPI and Zofran before eating earlier today. The patient has been seen several times in this emergency department and had a CT scan done that showed hepatomegaly, normal ultrasound of the abdomen, normal HIDA scan, she had an essentially normal endoscopy that showed a hiatal hernia and according to her gastritis, normal colonoscopy and earlier this week a stomach emptying test at [facility]. She states she has not felt well since the stomach emptying test. In emergency department she was well-appearing with a soft none surgical abdomen. An IV was placed and she was medicated with IV fluids, Zofran, Toradol and Pepcid. Routine labs are ordered and are reviewed. She has a normal white count and hemoglobin. Electrolytes, liver function tests, lactic acid and lipase are all normal. On reevaluation she stated she was feeling better and will be discharged home with recommendation for close follow-up with her family physician and call center coordinator. She declined the need for a note for work or refills on her medications. Lab Data Labs: Lab Results 02/09/24 Range/Units 02:58 WBC 9.1 (4.0-11.0) 10^3/uL RBC 3.94 L (4.20-5.40) 10^6/uL Hgb 12.6 (12.0-16.0) g/dL Hct 36.0 (36.0-48.0) % MCV 91.4 (81.0-99.0) fL MCH 32.0 (26.7-34.0) pg MCHC 35.0 (29.9-35.2) g/dL RDW 12.1 (11.0-15.0) % Plt Count 152 (150-450) 10^3/uL MPV 10.7 (9.5-13.5) fL Neut % (Auto) 59.2 (43.0-75.0) % Lymph % (Auto) 33.2 (20.5-60.0) % [place] % (Auto) 5.8 (1.7-12.0) % Eos % (Auto) 1.1 (0.9-7.0) % Baso % (Auto) 0.6 (0.2-2.0) % Neut # (Auto) 5.4 (1.4-6.5) 10^3/uL Lymph # (Auto) 3.0 (1.2-3.8) 10^3/uL [place] # (Auto) 0.5 (0.3-0.8) 10^3/uL Eos # (Auto) 0.1 (0.0-0.7) 10^3/uL Baso # (Auto) 0.1 (0.0-0.1) 10^3/uL Abs Immat Gran (auto) 0.01 (0.00-0.03) 10^3/uL Imm/Tot Granulo (auto) 0.1 (0.0-0.5) % Sodium 137 (136-145) mmol/L Potassium 3.4 L (3.5-5.1) mmol/L Chloride 103 (98-107) mmol/L Carbon Dioxide 27.0 (21.0-32.0) mmol/L Anion Gap 10.4 BUN 17.0 (7.0-18.0) mg/dL Creatinine 0.88 (0.55-1.02) mg/dL Est GFR ( Amer) >60 (>=60 mL/min/1.73m^2) Est GFR (Non-Af Amer) >60 (>=60 mL/min/1.73m^2) BUN/Creatinine Ratio 19.3 Glucose 83 (74-106) mg/dL Lactate 0.6 (0.4-2.0) mmol/L Calcium 8.7 (8.5-10.1) mg/dL Total Bilirubin 0.9 (0.2-1.0) mg/dL AST 13 L (15-37) U/L ALT 15 (14-59) U/L Alkaline Phosphatase 35 L (46-116) U/L Total Protein 6.3 L (6.4-8.2) g/dL Albumin 3.7 (3.4-5.0) g/dL Globulin 2.6 g/dL Albumin/Globulin Ratio 1.4 Lipase 43.0 (16.0-77.0) U/L Discharge Plan Discharge Chief Complaint: Abdominal Pain Clinical Impression: Abdominal pain Patient Disposition: Home, Self-Care Time of Disposition Decision: 04:00 Condition: Good Prescriptions / Home Meds: No Action dicyclomine 20 mg tablet 20 mg PO QID PRN (Reason: abdominal pain) omeprazole 20 mg capsule,delayed release(DR/EC) 20 mg PO DAILY ondansetron 4 mg tablet,disintegrating 4 mg PO Q8H PRN (Reason: nausea and vomiting) Print Language: Greenlandic Instructions: Abdominal Pain (ED), Chronic Abdominal Pain (DC) Referrals: Cyndi Epperson [facility] [Primary Care Provider] - 1 week
--- OUTSIDE RECORDS SUMMARY | 2024-02-09 03:03 | XMS_ITS | CCD ---
Author Organization [facility] Informat ion Partnership [facility] Care Team Providers Care Shochet Name Role Phone AICHOLZ, EVENING ANCHOR CYNDI Consulting Unavailable AICHHOLZ, EVENING ANCHOR CYNDI Primary Care Unavailable AICHOLZ, EVENING ANCHOR CYNDI Attending Unavailable AICHOLZ, EVENING ANCHOR CYNDI Admitting Unavailable ROVERTO, DR BURAK Rogers Consulting Unavailable KARASIK ., DR HDZ Consulting Unavailabl e AICHHOLZ, EVENING ANCHOR CYNDI Primary Care Unavailable KARASIK ., DR HDZ Attending Unavailabl e KARASIK ., DR HDZ Admitting Unavailabl e PIPPA LOVING Consulting Unavaila ble GEMBUSNUPUR Consulting Unavailable KARASIK ., DR HDZ Consulting Unavailabl e AICHHOLZ, [employer] CYNDI Primary Care Unavailable KARASIK ., DR HDZ Attending Unavailabl e KARASIK ., DR HDZ Admitting Unavailabl e PAO RAMON Consulting Unavailable AICHHOLZ, EVENING ANCHOR CYNDI Primary Care Unavailable KARASIK ., DR HDZ Attending Unavailabl e KARASIK ., DR HDZ Admitting Unavailabl e AICHHOLZ, EVENING ANCHOR CYNDI Primary Care Unavailable KARASIK ., DR HDZ Attending Unavailabl e KARASIK ., DR HDZ Admitting Unavailabl e AICHHOLZ, EVENING ANCHOR CYNDI Primary Care Unavailable KARASIK ., DR HDZ Attending Unavailabl e KARASIK ., DR HDZ Admitting Unavailabl e KARASIK ., DR HDZ Consulting Unavailabl e AICHHOLZ, EVENING ANCHOR CYNDI Primary Care Unavailable KARASIK ., DR HDZ Attending Unavailabl e KARASIK ., DR HDZ Admitting Unavailabl e KARASIK ., DR HDZ Consulting Unavailabl e KARESTEPHANIA SUN Admitting Unavailable AICHHOLZ, EVENING ANCHOR CYNDI Primary Care Unavailable KARASIK ., DR HDZ Attending Unavailabl e TED, DR MIKE Flores Consulting Unavailable AICHHOLZ, EVENING ANCHOR CYNDI Primary Care Unavailable AICHHOLZ, EVENING ANCHOR CYNDI Attending Unavailable AICHHOLZ, EVENING ANCHOR CYNDI Admitting Unavailable AICHHOLZ, EVENING ANCHOR CYNDI Consulting Unavailable AICHHOLZ, EVENING ANCHOR CYNDI Consulting Unavailable AICHHOLZ, EVENING ANCHOR CYNDI Primary Care Unavailable AICHHOLZ, EVENING ANCHOR CYNDI Attending Unavailable AICHHOLZ, EVENING ANCHOR CYNDI Admitting Unavailable AICHHOLZ, EVENING ANCHOR CYNDI Consulting Unavailable AICHHOLZ, EVENING ANCHOR CYNDI Primary Care Unavailable AICHHOLZ, EVENING ANCHOR CYNDI Attending Unavailable AICHHOLZ, EVENING ANCHOR CYNDI Admitting Unavailable AICHHOLZ, EVENING ANCHOR CYNDI Consulting Unavailable AICHHOLZ, EVENING ANCHOR CYNDI Primary Care Unavailable AICHHOLZ, EVENING ANCHOR CYNDI Attending Unavailable AICHHOLZ, EVENING ANCHOR CYNDI Admitting Unavailable KARASIK ., DR HDZ Consulting Unavailabl e AICHHOLZ, EVENING ANCHOR CYNDI Primary Care Unavailable KARASIK ., DR HDZ Attending Unavailabl e KARASIK ., DR HDZ Admitting Unavailabl e KARASIK ., DR HDZ Consulting Unavailabl e AICHHOLZ, EVENING ANCHOR CYNDI Primary Care Unavailable KARASIK ., DR HDZ Attending Unavailabl e KARASIK ., DR HDZ Admitting Unavailabl e HEATHER SWEENEY Consulting Unavailable KARASIK ., DR HDZ Procedure Practitioner Pina vailable ADINA YPI Consulting Unavailable AICHHOLZ, EVENING ANCHOR CYNDI Primary Care Unavailable KARASIK ., DR HDZ Attending Unavailabl e KARASIK ., DR HDZ Admitting Unavailabl e AICHHOLZ, CYNDI J Primary Care Physician Reza Bedoya Attending Unavailable DO Samuel Lacey Attending Provider Samuel Lacey Attending Unavailable Samuel Lacey Admitting Unavailable AICHHOLZ, CYNDI Attending Unavailable SAMUEL LACEY Attending Unavailable AICHHOLZ, CYNDI Attending Unavailable Reza Bedoya Attending Unavailable Booker Shelley Attending Unavaila Booker Garnica Attending Unavaila Booker Garnica Referring Unavaila Booker Garnica Attending Unavaila ble Booker Shelley Admitting Unavaila ble Allergies Allergy Classification Reported Allergen(s) Allergy Type Date of Onset Reaction(s) Facility (1 source) Penicillins Drug allergy (disorder) 5 [facility] Repository (1 source) Misc-Other; Translations: [Misc-Other] Propensity to adverse reactions (disorder) 2 [facility] Repository (6 sources) Amoxicillin; Translations: [amoxicillin] Drug Allergy Unkempt [facility] Medications Current Medications Medication Drug Class(es) Dates Sig (Normalized) Sig (Original) dicyclomine hydrochloride 10 mg oral capsule (1 source) Anticholinergic Start: 12-19-2023 End: 12-26-2023 take 1 capsule by mouth every six hours as needed for muscle spasms Bentyl 10 mg Cap 10 mg = 1 cap(s), Oral, q6hr, PRN Spasm, X 7 day(s), # 30 cap(s), Refills(s) 0, Pharmacy: [facility]/pharmacy #[id number], 170.2, cm, 12/19/23 16:15:00 EDT, [...] pain, # 12 tab(s), Refills(s) 0, Pharmacy: [facility]/pharmacy #[id number], 170.2, cm, 12/19/23 16:15:00 EDT, [...] who presents today for a f/u from [facility] 12/[facility]23 for acute abdominal pain and hepatomegaly. Fhx fatty liver disease. Denies previous EGD/Colonoscopy. Denies Fhx colon cancer. Denies blood thinners/GLP-1 agonists. Patient states that last Tuesday she had colonoscopy and EGD at [facility]. Abdominal pain: When did you first have this pain: 2-3 months Quality (sharp, dull):constant pressure type pain and when eating she will get left sided pain that is sharp. Constant or comes or go: constant location and radiation: upper abdomen and left side. Relation to food: Food does not improve/worsen symptoms. Has lack of appetite. Worse with food. EGD/Colon 01/10/24 @ [facility]: Normal colon CT 12/15/23 @ [place]: IMPRESSION: 1. Heterogeneous enlarged liver. Correlate with labs. 2. No acute bowel or inflammatory findings. Normal appendix. 3. Simple 1 cm right renal cyst. RUQ US 12/16/23: IMPRESSION: 1. No acute or specific findings to account for patient's symptoms. 2. No suspicious abnormality of the liver. CT 12/19/23: IMPRESSION: NO ACUTE INTRA-ABDOMINAL PROCESS IDENTIFIED. HIDA 01/04 @ [facility]: IMPRESSION: 1. Normal nuclear medicine HIDA scan. [...] 91.3 fL (12/19/23) Chloride: 103 mmol/L (12/19/23) [place]ett Absolute: 0.6 E9/L (12/19/23) CO2: 29 mmol/L (12/19/23) [place] Auto: 4.8 % (12/19/23) Creatinine: 0.9 mg/dL [...] Nausea/Vomiting, # 60 tab(s), Refills(s) 3, [id number], 170, cm, 01/19/24 12:39:00 EDT, Height/Length [...] tab(s), Oral, (more content not included)... Normal [facility] Comment on above: Result Comment: Elec tronically Signed By: Daphney MCKINLEY, Booker Jenkins\.wander\Date and Time Signed: 01/19/24 13:[address] [...] Contrast amount in ml's: 100 Normal [facility] ED Note-Physicianon 12-20-19 ED Note-Physician ED Note-Physician Basic Information Time Seen: Emily Troy PA-C. 12/19/2023 17:17 Chief Complaint was at [place] for diaphram pain. had ct's done. still [...] The patient states she was seen at [facility] last Tuesday. She states they did [...] (more content not included)... Normal [facility] Comment on above: Result Comment: Elec tronically Signed By: Emily Troy PA-C\.br\Date and Time Signed: 12/19/23 23:05 EDT\.br\Electronically Co-Signed By: Emily Troy PA-C.br\Date and Time Co-Signed: 12/19/23 23:06 EDT\.br\Electronically Co-Signed By: Emily Troy PA-C.br\Date and Time Co-Signed: 12/19/23 23:22 EDT\.br\Electronically Co-Signed By: Reza Bedoya DO\.br\Date and Time Co-Signed: 12/20/23 07:02 EDT BMPon 12-19-2023 Anion gap [Moles/Vol] 10 mmol/L Normal 6-16 [facility] Comment on above: Performed By: #### 2 [id number] #### [facility] Laboratory [address] [place] [address] Calcium [Mass/Vol] 9.7 mg/dL Normal 8.9-11.1 [facility] Comment on above: Performed By: #### 2 [id number] #### [facility] [address] [place] [address] Chloride [Moles/Vol] 103 mmol/L Normal 101-111 [facility] Comment on above: Performed By: #### 2 [id number] #### [facility] [address] [place] [address] CO2 [Moles/Vol] 29 mmol/L Normal 21-31 [facility] Comment on above: Performed By: #### 2 [id number] #### [facility] [address] [place] [address] Creatinine [Mass/Vol] 0.9 mg/dL Normal 0.5-1.3 [facility] Comment on above: Performed By: #### 2 [id number] #### [facility] [address] [place] [address] Glucose [Mass/Vol] 92 mg/dL Normal 55-199 [facility] Comment on above: Performed By: #### 2 [id number] #### [facility] [address] [place] [address] Potassium [Moles/Vol] 4.3 mmol/L Normal 3.5-5.3 [facility] Comment on above: Performed By: #### 2 [id number] #### [facility] [address] [place] [address] Sodium [Moles/Vol] 138 mmol/L Normal 135-145 [facility] Comment on above: Performed By: #### 2 [id number] #### [facility] [address] [place] [address] Urea nitrogen [Mass/Vol] 17 mg/dL Normal 5-21 [facility] Comment on above: Performed By: #### 2 [id number] #### [facility] [address] [place] [address] Urea nitrogen/Creatinine [Mass ratio] 19 No Units Normal 10-20 [facility] Comment on above: Performed By: #### 2 [id number] #### [facility] [address] [place] [address] CBC w/ Auto Diffon 4 Basophils/100 WBC (Bld) 0.5 % Normal 0.0-2.0 [facility] Comment on above: Performed By: #### 2 [id number] #### [facility] [address] [place] [address] Basophils/Leukocytes Auto (Bld) [Pure # fraction] 0.1 E9/L Normal 0.0-0.2 [facility] Comment on above: Performed By: #### 2 [id number] #### [facility] [address] [place] [address] Eosinophils (Bld) [#/Vol] 0.1 E9/L Normal 0.0-0.5 [facility] Comment on above: Performed By: #### 2 [id number] #### [facility] [address] [place] [address] Eosinophils/100 WBC (Bld) 0.6 % Normal 0.0-8.0 [facility] Comment on above: Performed By: #### 2 [id number] #### [facility] [address] [place] [address] Erythrocyte distribution width (RBC) [Ratio] 13.1 % Normal 10.9-14.2 [facility] Comment on above: Performed By: #### 2 [id number] #### [facility] [address] [place] [address] Hematocrit (Bld) [Volume fraction] 42.6 % Normal 34.0-46.0 [facility] Comment on above: Performed By: #### 2 [id number] #### [facility] [address] [place] [address] Hemoglobin (Bld) [Mass/Vol] 14.7 g/dL Normal 12.0-16.0 [facility] Comment on above: Performed By: #### 2 [id number] #### [facility] [address] [place] [address] Lymphocytes (Bld) [#/Vol] 2.2 E9/L Normal 1.0-4.0 [facility] Comment on above: Performed By: #### 2 [id number] #### [facility] [address] [place] [address] Lymphocytes/100 WBC (Bld) 18.7 % Normal 14.0-50.0 [facility] Comment on above: Performed By: #### 2 [id number] #### [facility] [address] [place] [address] MCH (RBC) [Entitic mass] 31.5 pg Normal 27.0-34.0 [facility] Comment on above: Performed By: #### 2 [id number] #### [facility] [address] [place] [address] MCHC (RBC) [Mass/Vol] 34.5 g/dL Normal 31.4-36.0 [facility] Comment on above: Performed By: #### 2 [id number] #### [facility] [address] [place] [address] MCV (RBC) [Entitic vol] 91.3 fL Normal 80.0-100.0 [facility] Comment on above: Performed By: #### 2 [id number] #### [facility] [address] [place] [address] Monocytes (Bld) [#/Vol] 0.6 E9/L Normal 0.2-1.0 [facility] Comment on above: Performed By: #### 2 [id number] #### [facility] [address] [place] [address] Neutrophils (Bld) [#/Vol] 8.7 E9/L High 2.0-7.5 [facility] Comment on above: Performed By: #### 2 [id number] #### [facility] [address] [place] [address] Neutrophils/100 WBC (Bld) 75.4 % High 36.0-75.0 [facility] Comment on above: Performed By: #### 2 [id number] #### [facility] [address] [place] [address] Platelet mean volume (Bld) [Entitic vol] 8.9 fL Normal 6.4-10.8 [facility] Comment on above: Performed By: #### 2 [id number] #### [facility] [address] [place] [address] Platelets (Bld) [#/Vol] 173.0 E9/L Normal 150.0-500.0 [facility] Comment on above: Performed By: #### 2 [id number] #### [facility] [address] [place] [address] RBC (Bld) [#/Vol] 4.7 E12/L Normal 4.3-5.9 [facility] Comment on above: Performed By: #### 2 [id number] #### [facility] [address] [place] [address] WBC corrected for nucl RBC Auto (Bld) [#/Vol] 11.5 E9/L High 4.0-11.0 [facility] Comment on above: Performed By: #### 2 [id number] #### [facility] [address] [place] [address] CHEMISTRYOrdered By: SYSTEM SYSTEM on 12-19-2023 Albumin [...] Instructions For Use, Carlos Von, December 2017) Anion gap [Moles/Vol] 10 mmol/L [...] Sensitivity Troponin I Instructions For Use, Carlos [place], December 2017) Urea nitrogen [Mass/Vol] 17 mg/dL Normal 5 - 21 mg/dL Remisol Chem Urea nitrogen/Creatinine [Mass ratio] 19 mg/mg Normal 10 - 20 [facility] COAGULATIONOrdered By: Courtney Sanches on 12-19-2023 aPTT Coag (PPP) [Time] 29.0 s Normal 25.1 - 36.5 second(s) [facility] Comment on above: Interpretive Data: [...] the same coagulation reagent and instrumentation as [facility] Currently there are no coagulation studies available worldwide for children to 14 days, and no normal ranges. Heparin therapeutic range (represented by Anti-Factor Xa activity of 0.2 - 0.4 U/mL) corresponds to PTT of 56.6 - 109.0 sec. INR Coag (PPP) [Relative time] 1.05 {INR} Invalid Interpretation Code [facility] Comment on above: Interpretive Data: I NR results are specifically intended to assess patients stabilized on long-term Anticoagulation therapy suggested INR s Less Intensive Anticoagulation 2.0 3.0 Conventional Range 3.0 4.5 PT Coag (PPP) [Time] 11.8 s Normal 9.4 - 1 2.5 second(s) [facility] Comment on above: Interpretive Data: [...] the same coagulation reagent and instrumentation as [facility]. Currently there are no coagulation studies available worldwide for children to 14 days, and no normal ranges. ED Clinical Summaryon 2023 ED Clinical Summary ED Clinical Summary [place] [id number] ED Clinical Summary Person Information Name: LORA MARTINS/Stephanie Age: 43 Years : 1980 Sex: Female Language: Sinhala PCP: CYNDI EPPERSON CNP Marital Status: Single [...] 12/19/2023 23:16:39 12/19/2023 23:16:39 12/19/2023 23:16:39 ADDRESS: [address] [place] [phone] PHYS DOC NOTES: MEDICAL INFORMATION: Prescriptions Given: New Medications [id number], [address], [place] [id number], [phone] dicyclomine (Bentyl 10 mg Cap) 1 Capsules By Mouth every 6 hours as needed Spasm for 7 Days. Refills: 0. tramadol (traMADOL 50 mg Tab) 0.5-1 tab(s) By Mouth every 6 hours as needed as needed for pain. Refills: 0. PATIENT EDUCATION INFORMATION: Instructions: Hepatomegaly, Bivl-ms-Jxqg; Abdominal Pain, Adult Follow up: With: Address: When: Booker Denson [facility], [address], [place] [id number] [phone] Business (1) In 3 days 12/22/2023 With: Address: When: CYNDI EPPERSON [address] [place], [place] [phone] Business (1) In 3 days DIAGNOSIS: 1:Acute abdominal pain; 2:Hepatomegaly Normal [facility] ED Patient Summaryon 024 ED Patient Summary ED Patient Summary [address] [address] Patient Discharge Instructions Person Information Name: LORA MARTINS Age: 43 Years Arrival Date: 12/19/2023 15:58:56 Discharge Diagnosis: 1:Acute abdominal pain; 2:Hepatomegaly Primary Care Physician: CYNDI EPPERSON CNP Provider Information Primary Provider: Reza Bedoya DO Advanced Cell Reliner:None The exam and treatment you received in the Emergency Department were for an urgent problem and are not intended as complete care. It is important that you follow up with a doctor, nurse practitioner, or physician?s psychiatric assistant for ongoing care. If your symptoms [...] Follow-up Instructions: With: Address: When: Booker Shelley [address] [facility], [address], [address] [phone] [facility] (1) In 3 days 12/22/2023 With: Address: When: CYNDI EPPERSON [address] [place], [place] [phone] [facility] (1) In 3 days In the event that this physician does not participate in your insurance network, please consult with your insurance company to find a nearby participating provider. Patient Education Materials: Hepatomegaly, Vkiu-ri-Cnea; Abdominal Pain, Adult A MESSAGE TO ALL PATIENTS REGARDING OPIOIDS PRESCRIPTION OPIOIDS: WHAT YOU NEED TO KNOW Prescription opioids can be used to help relieve absqwwes-be-gqpwrv pain and are often prescribed following a [...] (more content not included)... Normal [facility] HEMATOLOGYOrdered By: SYSTEM SYSTEM on 12-19-2023 Basophils/100 [...] [Mass/Vol] 4.3 g/dL Normal 3.3-5.0 [facility] Comment on above: Performed By: #### 2 [id number] #### [facility] [address] [place] [address] Albumin/Globulin (S) [Mass conc ratio] 2.0 Normal 1.1-2.2 [facility] Comment on above: Performed By: #### 2 [id number] #### [facility] [address] [place] [address] ALP [Catalytic activity/Vol] 28 Int._Unit/L Normal 21-98 [facility] Comment on above: Performed By: #### 2 [id number] #### [facility] [address] [place] [address] ALT No additional P-5'-P [Catalytic activity/Vol] 14 Int._Unit/L Normal 6-46 [facility] Comment on above: Performed By: #### 2 [id number] #### [facility] [address] [place] [address] AST [Catalytic activity/Vol] 14 Int._Unit/L Normal 5-43 [facility] Comment on above: Performed By: #### 2 [id number] #### [facility] [address] [place] [address] Bilirubin [Mass/Vol] 1.0 mg/dL Normal 0.0-1.1 [facility] Comment on above: Performed By: #### 2 [id number] #### [facility] [address] [place] [address] Bilirubin.direct [Mass/Vol] 0.1 mg/dL Normal 0.0-0.4 [facility] Comment on above: Performed By: #### 2 198085 #### [facility] [address] [place] [address] Bilirubin.indirect [Mass or moles/Vol] 0.9 mg/dL Normal 0.1-0.9 [facility] Comment on above: Performed By: #### 2 [id number] #### [facility] [address] [place] [address] Globulin (S) [Mass/Vol] 2.1 g/dL Normal 1.4-4.0 [facility] Comment on above: Performed By: #### 2 [id number] #### [facility] [address] [place] [address] Protein [Mass/Vol] 6.4 g/dL Normal 6.0-7.8 [facility] Comment on above: Performed By: #### 2 [id number] #### [facility] [address] [place] [address] Lipase Levelon 12-19-2023 Lipase [Catalytic activity/Vol] 18 U/L Normal 13-58 [facility] Comment on above: Performed By: #### 2 [id number] #### [facility] [address] [place] [address] PT & PTTon 12-19-2023 aPTT Coag (PPP) [Time] 29.0 second(s) Normal 25.1-36.5 [facility] Comment on above: Result Comment: Para meter 15 days - 4 weeks 1 - 5 months 6 - 11 months 1 - 5 years 6 - 10 years 11 - 17 years PTT Mean: 35.4 (27.6-45.6) Mean: 33.5 (24.8-40.7) Mean: 32.4 (25.1-40.7) Mean: 31.6 (24.0-39.2) Mean: 31.6 (26.9-38.7) Mean: 31.0 (24.6-38.4) Pediatric Reference ranges were obtained from a study by gisela Avilez prepared from 1437 samples obtained at 7 different centers using the same coagulation reagent and instrumentation as [facility]. Currently there are no coagulation studies available worldwide for children to 14 days, and no normal ranges. Heparin therapeutic range (represented by Anti-Factor Xa activity of 0.2 - 0.4 U/mL) corresponds to PTT of 56.6 - 109.0 sec. Performed By: #### 1 [id number] #### [facility] [address] [place] [address] INR Coag (PPP) [Relative time] 1.05 {INR} Invalid Interpretation Code [facility] Comment on above: Result Comment: INR results are specifically intended to assess patients stabilized on long-term Anticoagulation therapy suggested INR?s ?Less Intensive Anticoagulation? 2.0 ? 3.0 Conventional Range 3.0 ? 4.5 Performed By: #### 1 [id number] #### [facility] [facility] [address] [place] [address] PT Coag (PPP) [Time] 11.8 second(s) Normal 9.4-12.5 [facility] Comment on above: Result Comment: 15 d [...] ranges were obtained from a study by gisela Avilez prepared from 1437 samples obtained at 7 different centers using the same coagulation reagent and instrumentation as [facility]. Currently there are no coagulation studies available worldwide for children to 14 days, and no normal ranges. Performed By: #### 1 [id number] #### [facility] [address] [place] [address] Troponin 0 Hr.on 12-19-2023 Troponin HS 2.70 pg/mL Low 10.10-27.10 [facility] Comment on above: Result Comment: The 95% CI (Confidence Interval) PPV (Positive Predictive Value) for myocardial infarction in females is 38 pg/mL, in males 51 pg/mL. The results should be used in conjunction with clinical conditions of myocardial infarction. (Access High Sensitivity Troponin I Instructions For Use, [employer], December 2017) Performed By: #### 1 [id number] #### [facility] [address] [place] [address] Troponin 1 Hr.on 12-19-2023 Troponin HS 2.40 pg/mL Low 10.10-27.10 [facility] Comment on above: Order Comment: [id number] Result Comment: The 95% CI (Confidence Interval) PPV (Positive Predictive Value) for myocardial infarction in females is 38 pg/mL, in males 51 pg/mL. The results should be used in conjunction with clinical conditions of myocardial infarction. (Access High Sensitivity Troponin I Instructions For Use, [employer], December 2017) Performed By: #### 1 [id number] #### [facility] [address] [place] [address] eGFRon 12-19-2023 eGFR 80 mL/min/1.73 m2 Normal >=59 [facility] Comment on above: Order Comment: Order added by Discern Expert. Performed By: #### 1 [id number] #### [facility] [address] [place] [address] MG MAMM DIAGNOSTIC 3D [place] CA Don 04-08-2022 MG MAMM DIAGNOSTIC 3D [place] CAD Patient: LORA MARTINS Exam Date: 04/08/2022 : 1980 Gender:F Ordering : KP [employer] Admission #: [id number] Family : Order #: [id number] CLICK HERE TO VIEW EXAM RADIOLOGY REPORT [...] pancreatic cancer at age 55. LOCATION: [facility] BREAST COMPOSITION: Heterogeneously dense,which may obscure [...] MD on 04/08/2022 at 15:21 Normal [facility] US BREAST [place] LIMITEDon 12-0 US BREAST [place] LIMITED Patient: LORA MARTINS Exam Date: 04/08/2022 : 1980 Gender:F Ordering : KP [employer]ERSON [employer] Admission #: [id number] Family : Order #: [id number] CLICK HERE TO VIEW EXAM RADIOLOGY REPORT [...] pancreatic cancer at age 55. LOCATION: [facility] BREAST COMPOSITION: Heterogeneously dense,which may obscure [...] MD on 04/08/2022 at 15:21 Normal [facility] BUNon 03-23-2022 Urea nitrogen [Mass/Vol] 18.0 mg/dL Normal 7.0-18.0 [facility] Comment on above: Performed By: #### B UN, CREA #### [facility] [address] [place] [address] Dr. Jackie Bhardwaj CBC AUTO DIFFon 03-23-2022 BASO # 0.0 103/ul Normal 0.0-0.1 [facility] Comment on above: Performed By: #### P TT, PT #### [facility] [address] [place] [address] Dr. Jackie Bhardwaj Basophils/100 WBC (Bld) 0.2 % Normal 0.2-2.0 [facility] Comment on above: Performed By: #### P TT, PT #### [facility] [address] [place] [address] Dr. Jackie Bhardwaj EO # 0.1 103/ul Normal 0.0-0.7 [facility] Comment on above: Performed By: #### P TT, PT #### [facility] [address] [place] [address] Dr. Jackie Bhardwaj Eosinophils/100 WBC (Bld) 0.4 % Critically low 0.9-7.0 [facility] Comment on above: Performed By: #### P TT, PT #### [facility] [address] [place] [address] Dr. Jackie Bhardwaj Erythrocyte distribution width (RBC) [Ratio] 12.8 % Normal 11.0-15.0 [facility] Comment on above: Performed By: #### P TT, PT #### [facility] [address] [place] [address] Dr. Jackie Bhardwaj Hematocrit (Bld) [Volume fraction] 30.7 % Critically low 36.0-48.0 [facility] Comment on above: Performed By: #### P TT, PT #### [facility] [address] [place] [address] Dr. Jackie Bhardwaj Hemoglobin (Bld) [Mass/Vol] 10.3 g/dL Critically low 12.0-16.0 [facility] Comment on above: Performed By: #### P TT, PT #### [facility] [address] [place] [address] Dr. Jackie Bhardwaj IG # 0.04 10e3/ul Critically high 0.00-0.03 [facility] Comment on above: Performed By: #### P TT, PT #### [facility] [address] [place] [address] Dr. Jackie Bhardwaj IG % 0.3 % Normal 0.0-0.5 [facility] Comment on above: Performed By: #### P TT, PT #### [facility] [address] [place] [address] Dr. Jackie Bhardwaj LYMPH # 2.7 103/ul Normal 1.2-3.8 [facility] Comment on above: Performed By: #### P TT, PT #### [facility] [address] [place] [address] Dr. Jackie Bhardwaj Lymphocytes/100 WBC (Bld) 21.0 % Normal 20.5-60.0 [facility] Comment on above: Performed By: #### P TT, PT #### [facility] [address] [place] [address] Dr. Jackie Bhardwaj MANUAL DIFF REQ NO Normal [facility] Comment on above: Performed By: #### P TT, PT #### [facility] [address] [place] [address] Dr. Jackie Bhardwaj MCH (RBC) [Entitic mass] 30.7 pg Normal 26.7-34.0 [facility] Comment on above: Performed By: #### P TT, PT #### [facility] [address] [place] [address] Dr. Jackie Bhardwaj MCHC (RBC) [Mass/Vol] 33.6 g/dL Normal 29.9-35.2 [facility] Comment on above: Performed By: #### P TT, PT #### [facility] [address] [place] [address] Dr. Jackie Bhardwaj MCV (RBC) [Entitic vol] 91.6 fL Normal 81.0-99.0 [facility] Comment on above: Performed By: #### P TT, PT #### [facility] [address] [place] [address] Dr. Jackie Bhardwaj MONO # 0.8 103/ul Normal 0.3-0.8 [facility] Comment on above: Performed By: #### P TT, PT #### [facility] [address] [place] [address] Dr. Jackie Bhardwaj Monocytes/100 WBC (Bld) 6.2 % Normal 1.7-12.0 [facility] Comment on above: Performed By: #### P TT, PT #### [facility] [address] [place] [address] Dr. Jackie Bhardwaj NEUT # 9.2 103/ul Critically high 1.4-6.5 [facility] Comment on above: Performed By: #### P TT, PT #### [facility] [address] [place] [address] Dr. Jackie Bhardwaj Neutrophils/100 WBC (Bld) 71.9 % Normal 43.0-75.0 [facility] Comment on above: Performed By: #### P TT, PT #### [facility] [address] [place] [address] Dr. Jackie Bhardwaj Platelet mean volume (Bld) [Entitic vol] 11.2 fL Normal 9.5-13.5 [facility] Comment on above: Performed By: #### P TT, PT #### [facility] [address] [place] [address] Dr. Jackie Bhardwaj PLT 135 103/ul Critically low 150-450 [facility] Comment on above: Performed By: #### P TT, PT #### [facility] [address] [place] [address] Dr. Jackie Bhardwaj RBC 3.35 106/ul Critically low 4.20-5.40 [facility] Comment on above: Performed By: #### P TT, PT #### [facility] [address] [place] [address] Dr. Jackie Bhardwaj WBC 12.8 103/ul Critically high 4.0-11.0 [facility] Comment on above: Performed By: #### P TT, PT #### [facility] [address] [place] [address] Dr. Jackie Bhardwaj CREATININEon 03-23-2022 Creatinine [Mass/Vol] 0.72 mg/dL Normal 0.55-1.02 [facility] Comment on above: Performed By: #### B UN, CREA #### [facility] [address] [place] [address] Dr. Jackie Bhardwaj EGFR-AF MAURITIAN >60 Normal >=60 [facility] Comment on above: Performed By: #### B UN, CREA #### [facility] [address] [place] [address] Dr. Jackie Bhardwaj EGFR-NON AF MAURITIAN >60 Normal >=60 [facility] Comment on above: Performed By: #### B UN, CREA #### [facility] [address] [place] [address] Dr. Jackie Bhardwaj ANTIBODY ID PANELon 03-22-20 22 ANTIBODY ID PANEL Antibody ID Anti-D Blood Bank Notes testing performed at [facility] reference lab [facility] Comment on above: Performed By: #### P TT, PT #### [facility] [address] [address] [address] Jackie Bhardwaj URon 03-22-2022 , QUAL Negative Normal NEGATIVE [facility] Comment on above: Performed By: #### P TT, PT #### [facility] [address] [id number] Jackie Bhardwaj Covid-19 PCR ([facility])on 03-09 SARS-CoV-2 (COVID-19) RNA JOHN+probe Ql (Unsp spec) Not detected Normal NOT DETECTED [facility] Comment on above: Result Comment: This test is not yet approved or cleared by the [place] FDA. When there are no FDA-approved or cleared tests available, and other criteria are met, FDA can make tests available under an emergency access mechanism called an Emergency Use Authorization (EUA). The EUA for this test is supported by the [place] of Health and Human Service's (HHS's) declaration [...] SARS-CoV-2. Performed By: #### C VDTBH #### [facility] [address] [address] [address] Jackie Bhardwaj TYPE AND SCREENon 03-18-2022 TYPE AND SCREEN Negative Normal [facility] Comment on above: Performed By: #### P TT, PT #### [facility] [address] [place], [place] [id number] Dr. Jackie Bhardwaj LIVER PROFILEon 03-10-2022 Albumin [Mass/Vol] 4.1 g/dL Normal 3.4-5.0 [facility] Comment on above: Performed By: #### L IVER, BMP #### [facility] [address] [address] [address] Jackie Bhardwaj Albumin/Globulin [Mass ratio] 1.6 {ratio} Normal [facility] Comment on above: Performed By: #### L SHYLA, BMP #### [facility] [address] [address] [address] Jackie Bhardwaj ALP [Catalytic activity/Vol] 41 U/L Critically low 46-116 [facility] Comment on above: Performed By: #### L SHYLA, BMP #### [facility] [address] [place] [address] Dr. Jackie Bhardwaj ALT [Catalytic activity/Vol] 16 U/L Normal 14-59 [facility] Comment on above: Performed By: #### L SHYLA, BMP #### [facility] [address] [place] [address] Dr. Jackie Bhardwaj AST [Catalytic activity/Vol] 14 U/L Critically low 15-37 [facility] Comment on above: Performed By: #### L SHYLA, BMP #### [facility] [address] [place] [address] Dr. Jackie Bhardwaj BILI, CONJUGATED 0.1 mg/dL Normal 0.0-0.2 [facility] Comment on above: Performed By: #### L SHYLA, BMP #### [facility] [address] [place] [address] Dr. Jackie Bhardwaj Bilirubin [Mass/Vol] 0.3 mg/dL Normal 0.2-1.0 [facility] Comment on above: Performed By: #### L SHYLA, BMP #### [facility] [address] [place] [address] Dr. Jackie Bhardwaj Globulin (S) [Mass/Vol] 2.5 g/dL Normal [facility] Comment on above: Performed By: #### L SHYLA, BMP #### [facility] [address] [place] [address] Dr. Jackie Bhardwaj Protein [Mass/Vol] 6.6 g/dL Normal 6.4-8.2 [facility] Comment on above: Performed By: #### L SHYLA, BMP #### [facility] [address] [place] [address] Dr. Jackie Bhardwaj PROF CHEM 8 (BAS METB)on Anion gap [Moles/Vol] 11.6 mmol/L Normal Th [facility] Comment on above: Performed By: #### L IVER, BMP #### [facility] [address] [place] [address] Dr. aJckie Bhardwaj Calcium [Mass/Vol] 8.8 mg/dL Normal 8.5-10.1 [facility] Comment on above: Performed By: #### L IVER, BMP #### [facility] [address] [place] [address] Dr. Jackie Bhardwaj Chloride [Moles/Vol] 102 mmol/L Normal 98-107 [facility] Comment on above: Performed By: #### L IVER, BMP #### [facility] [address] [place] [address] Dr. Jackie Bhardwaj CO2 [Moles/Vol] 28.9 mmol/L Normal 21.0-32.0 [facility] Comment on above: Performed By: #### L IVER, BMP #### [facility] [address] [place] [address] Dr. Jackie Bhardwaj Creatinine [Mass/Vol] 0.78 mg/dL Normal 0.55-1.02 [facility] Comment on above: Performed By: #### L IVER, BMP #### [facility] [address] [place] [address] Dr. Jackie Bhardwaj EGFR-AF MAURITIAN >60 Normal >=60 [facility] Comment on above: Performed By: #### L IVER, BMP #### [facility] [address] [place] [address] Dr. Jackie Bhardwaj EGFR-NON AF MAURITIAN >60 Normal >=60 [facility] Comment on above: Performed By: #### L IVER, BMP #### [facility] [address] [place] [address] Dr. Jackie Bhardwaj Glucose [Mass/Vol] 81 mg/dL Normal 74-106 [facility] Comment on above: Performed By: #### L IVER, BMP #### [facility] [address] [place] [address] Dr. Jackie Bhardwaj Potassium [Moles/Vol] 3.5 mmol/L Normal 3.5-5.1 [facility] Comment on above: Performed By: #### L IVER, BMP #### [facility] [address] [place] [address] Dr. Jackie Bhardwaj Sodium [Moles/Vol] 139 mmol/L Normal 136-145 [facility] Comment on above: Performed By: #### L IVER, BMP #### [facility] [address] [place] [address] Dr. Jackie Bhardwaj Urea nitrogen [Mass/Vol] 21.0 mg/dL Critically high 7.0-18.0 [facility] Comment on above: Performed By: #### L IVER, BMP #### [facility] [address] [place] [address] Dr. Jackie Bhardwaj Urea nitrogen/Creatinine [Mass ratio] 26.9 mg/mg Normal [facility] Comment on above: Performed By: #### L IVER, BMP #### [facility] [address] [place] [address] Dr. Jackie Bhardwaj PROTIMEon 03-10-2022 INR Coag (PPP) [Relative time] 0.98 {INR} Normal [facility] Comment on above: Performed By: #### P TT, PT #### [facility] [address] [place] [address] Dr. Jackie Bhardwaj INR GUIDELINES SEE BELOW Normal [facility] Comment on above: Result Comment: BILLY RED INR: 2.0 - 3.0 CONDITIONS NOT LISTED BELOW 2.5 - 3.5 FOR PROSTHETIC HEART VALVE REPLACEMENT 2.5 - 3.5 RECURRENT THROMBOSIS Performed By: #### P TT, PT #### [facility] [address] [place] [address] Dr. Jackie Bhardwaj PT Coag (PPP) [Time] 10.6 s Normal 9.0-11.6 [facility] Comment on above: Performed By: #### P TT, PT #### [facility] [address] [place] [address] Dr. Jackie Bhardwaj PTTon 03-10-2022 aPTT Coag (Bld) [Time] 26.3 s Normal 22.3-36.2 Th [facility] Comment on above: Performed By: #### P TT, PT #### [facility] [address] [place] [address] Dr. Jackie Bhardwaj CBC AUTO DIFFon 03-09-2022 BASO # 0.1 103/ul Normal 0.0-0.1 [facility] Comment on above: Performed By: #### P TT, PT #### [facility] [address] [place] [address] Dr. Jackie Bhardwaj Basophils/100 WBC (Bld) 0.6 % Normal 0.2-2.0 [facility] Comment on above: Performed By: #### P TT, PT #### [facility] [address] [place] [address] Dr. Jackie Bhardwaj EO # 0.2 103/ul Normal 0.0-0.7 [facility] Comment on above: Performed By: #### P TT, PT #### [facility] [address] [place] [address] Dr. Jackie Bhardwaj Eosinophils/100 WBC (Bld) 1.8 % Normal 0.9-7.0 [facility] Comment on above: Performed By: #### P TT, PT #### [facility] [address] [place] [address] Dr. Jackie Bhardwaj Erythrocyte distribution width (RBC) [Ratio] 12.7 % Normal 11.0-15.0 [facility] Comment on above: Performed By: #### P TT, PT #### [facility] [address] [place] [address] Dr. Jackie Bhardwaj Hematocrit (Bld) [Volume fraction] 39.1 % Normal 36.0-48.0 [facility] Comment on above: Performed By: #### P TT, PT #### [facility] [address] [place] [address] Dr. Jackie Bhardwaj Hemoglobin (Bld) [Mass/Vol] 12.8 g/dL Normal 12.0-16.0 [facility] Comment on above: Performed By: #### P TT, PT #### [facility] [address] [place] [address] Dr. Jackie Bhardawj IG # 0.03 10e3/ul Normal 0.00-0.03 [facility] Comment on above: Performed By: #### P TT, PT #### [facility] [address] [place] [address] Dr. Jackie Bhardwaj IG % 0.3 % Normal 0.0-0.5 [facility] Comment on above: Performed By: #### P TT, PT #### [facility] [address] [place] [address] Dr. Jackie Bhardwaj LYMPH # 3.5 103/ul Normal 1.2-3.8 [facility] Comment on above: Performed By: #### P TT, PT #### [facility] [address] [place] [address] Dr. Jackie Bhardwaj Lymphocytes/100 WBC (Bld) 32.7 % Normal 20.5-60.0 [facility] Comment on above: Performed By: #### P TT, PT #### [facility] [address] [place] [address] Dr. Jackie Bhardwaj MANUAL DIFF REQ NO Normal [facility] Comment on above: Performed By: #### P TT, PT #### [facility] [address] [place] [address] Dr. Jackie Bhardwaj MCH (RBC) [Entitic mass] 30.7 pg Normal 26.7-34.0 [facility] Comment on above: Performed By: #### P TT, PT #### [facility] [address] [place] [address] Dr. Jackie Bhardwaj MCHC (RBC) [Mass/Vol] 32.7 g/dL Normal 29.9-35.2 [facility] Comment on above: Performed By: #### P TT, PT #### [facility] [address] [place] [address] Dr. Jackie Bhardwaj MCV (RBC) [Entitic vol] 93.8 fL Normal 81.0-99.0 [facility] Comment on above: Performed By: #### P TT, PT #### [facility] [address] [place] [address] Dr. Jackie Bhardwaj MONO # 0.7 103/ul Normal 0.3-0.8 [facility] Comment on above: Performed By: #### P TT, PT #### [facility] [address] [place] [address] Dr. Jackie Bhardwaj Monocytes/100 WBC (Bld) 6.3 % Normal 1.7-12.0 [facility] Comment on above: Performed By: #### P TT, PT #### [facility] [address] [place] [address] Dr. Jackie Bhardwaj NEUT # 6.2 103/ul Normal 1.4-6.5 [facility] Comment on above: Performed By: #### P TT, PT #### [facility] [address] [place] [address] Dr. Jackie Bhardwaj Neutrophils/100 WBC (Bld) 58.3 % Normal 43.0-75.0 [facility] Comment on above: Performed By: #### P TT, PT #### [facility] [address] [place] [address] Dr. Jackie Bhardwaj Platelet mean volume (Bld) [Entitic vol] 11.5 fL Normal 9.5-13.5 [facility] Comment on above: Performed By: #### P TT, PT #### [facility] [address] [place] [address] Dr. Jackie Bhardwaj PLT 167 103/ul Normal 150-450 [facility] Comment on above: Performed By: #### P TT, PT #### [facility] [address] [place] [address] Dr. Jackie Bhardwaj RBC 4.17 106/ul Critically low 4.20-5.40 [facility] Comment on above: Performed By: #### P TT, PT #### [facility] [address] [place] [address] Dr. Jackie Bhardwaj WBC 10.6 103/ul Normal 4.0-11.0 [facility] Comment on above: Performed By: #### P TT, PT #### [facility] [address] [place] [address] Dr. Jackie Bhardwaj IRONon 03-09-2022 Iron [Mass/Vol] 73.0 ug/dL Normal 50.0-170.0 [facility] Comment on above: Performed By: #### P TT, PT #### [facility] [address] [place] [address] Dr. Jackie Bhardwaj PREG HCG QUALon 02-01-2022 , QUAL Negative Normal NEGATIVE [facility] Comment on above: Performed By: #### P REG #### [facility] [address] [place] [address] Dr. Jackie Bhardwaj , QUAL Negative Normal NEGATIVE [facility] Comment on above: Result Comment: Prev iously reported as: [id number] On 02/01/2022 06:45 By DM9 Performed By: #### P TT, PT #### [facility] [address] [place] [address] Dr. Jackie Bhardwaj Covid-19 PCR ([facility])on 01-08 SARS-CoV-2 (COVID-19) RNA JOHN+probe Ql (Unsp spec) Not detected Normal NOT DETECTED [facility] Comment on above: Result Comment: This test is not yet approved or cleared by the [place] FDA. When there are no FDA-approved or cleared tests available, and other criteria are met, FDA can make tests available under an emergency access mechanism called an Emergency Use Authorization (EUA). The EUA for this test is supported by the [employer] of Health and Human Service's (HHS's) declaration [...] SARS-CoV-2. Performed By: #### C VDTBH #### [facility] [address] [place] [address] Dr. Jackie Bhardwaj Covid-19 PCR ([facility])on 12-09 SARS-CoV-2 (COVID-19) RNA JOHN+probe Ql (Unsp spec) Not detected Normal NOT DETECTED [facility] Comment on above: Result Comment: This test is not yet approved or cleared by the [place] FDA. When there are no FDA-approved or cleared tests available, and other criteria are met, FDA can make tests available under an emergency access mechanism called an Emergency Use Authorization (EUA). The EUA for this test is supported by the [employer] of Health and Human Service's (HHS's) declaration [...] Performed By: #### P TT, PT #### [facility] [address] [place] [address] Dr. Jackie Bhardwaj CBC AUTO DIFFon 12-29-2021 BASO # 0.1 103/ul Normal 0.0-0.1 [facility] Comment on above: Performed By: #### C BC #### [facility] [address] [place] [address] Dr. Jackie Bhardwaj Basophils/100 WBC (Bld) 0.4 % Normal 0.2-2.0 [facility] Comment on above: Performed By: #### C BC #### [facility] [address] [place] [address] Dr. Jackie Bhardwaj EO # 0.2 103/ul Normal 0.0-0.7 [facility] Comment on above: Performed By: #### C BC #### [facility] [address] [place] [address] Dr. Jackie Bhardwaj Eosinophils/100 WBC (Bld) 1.6 % Normal 0.9-7.0 [facility] Comment on above: Performed By: #### C BC #### [facility] [address] [place] [address] Dr. Jackie Bhardwaj Erythrocyte distribution width (RBC) [Ratio] 12.9 % Normal 11.0-15.0 [facility] Comment on above: Performed By: #### C BC #### [facility] [address] [place] [address] Dr. Jackie Bhardwaj Hematocrit (Bld) [Volume fraction] 38.5 % Normal 36.0-48.0 [facility] Comment on above: Performed By: #### C BC #### [facility] [facility] [address] [place] [address] Dr. Jackie Bhardwaj Hemoglobin (Bld) [Mass/Vol] 12.8 g/dL Normal 12.0-16.0 [facility] Comment on above: Performed By: #### C BC #### [facility] [address] [place] [address] Dr. Jackie Bhardwaj IG # 0.03 10e3/ul Normal 0.00-0.03 [facility] Comment on above: Performed By: #### C BC #### [facility] [address] [place] [address] Dr. Jackie Bhardwaj IG % 0.3 % Normal 0.0-0.5 [facility] Comment on above: Performed By: #### C BC #### [facility] [address] [place] [address] Dr. Jackie Bhardwaj LYMPH # 3.9 103/ul Critically high 1.2-3.8 [facility] Comment on above: Performed By: #### C BC #### [facility] [address] [place] [address] Dr. Jackie Bhardwaj Lymphocytes/100 WBC (Bld) 33.9 % Normal 20.5-60.0 [facility] Comment on above: Performed By: #### C BC #### [facility] [address] [place] [address] Dr. Jackie Bhardwaj MANUAL DIFF REQ NO Normal [facility] Comment on above: Performed By: #### C BC #### [facility] [address] [place] [address] Dr. Jackie Bhardwaj MCH (RBC) [Entitic mass] 31.4 pg Normal 26.7-34.0 [facility] Comment on above: Performed By: #### C BC #### [facility] [address] [place] [address] Dr. Jackie Bhardwaj MCHC (RBC) [Mass/Vol] 33.2 g/dL Normal 29.9-35.2 [facility] Comment on above: Performed By: #### C BC #### [facility] [address] [place] [address] Dr. Jackie Bhardwaj MCV (RBC) [Entitic vol] 94.4 fL Normal 81.0-99.0 [facility] Comment on above: Performed By: #### C BC #### [facility] [address] [place] [address] Dr. Jackie Bhardwaj MONO # 0.7 103/ul Normal 0.3-0.8 [facility] Comment on above: Performed By: #### C BC #### [facility] [address] [place] [address] Dr. Jackie Bhardwaj Monocytes/100 WBC (Bld) 5.8 % Normal 1.7-12.0 [facility] Comment on above: Performed By: #### C BC #### [facility] [address] [place] [address] Dr. Jackie Bhardwaj NEUT # 6.6 103/ul Critically high 1.4-6.5 [facility] Comment on above: Performed By: #### C BC #### [facility] [address] [place] [address] Dr. Jackie Bhardwaj Neutrophils/100 WBC (Bld) 58.0 % Normal 43.0-75.0 [facility] Comment on above: Performed By: #### C BC #### [facility] [address] [place], [place] [address] Dr. Jackie Bhardwaj Platelet mean volume (Bld) [Entitic vol] 11.4 fL Normal 9.5-13.5 [facility] Comment on above: Performed By: #### C BC #### [facility] [address] [place], [place] [address] Dr. Jackie Bhardwaj PLT 168 103/ul Normal 150-450 [facility] Comment on above: Performed By: #### C BC #### [facility] [address] [place], [place] [address] Dr. Jackie Bhardwaj RBC 4.08 106/ul Critically low 4.20-5.40 [facility] Comment on above: Performed By: #### C BC #### [facility] [address] [place], [place] [address] Dr. Jackie Bhardwaj WBC 11.4 103/ul Critically high 4.0-11.0 [facility] Comment on above: Performed By: #### C BC #### [facility] [address] [place], [place] [address] Dr. Jackie Bhardwaj IRONon 12-29-2021 Iron [Mass/Vol] 41.0 ug/dL Critically low 50.0-170.0 [facility] Comment on above: Performed By: #### P TT, PT #### [facility] [address] [place], [place] [address] Dr. Jackie Bhardwaj US VAC ASST BX BRST LT W CLI Jaya 10-02-2021 US VAC ASST BX BRST LT W CLIP Begin Addendum #1 COLLECTED DATE/TIME: 09/22/2021 09:43 EDT Final Diagnosis Report for [facility] [place] ULTRASOUND GUIDED CORE BIOPSY, LEFT BREAST [...] provided after pathology results are available. Normal [facility] MAMMO POST BIOPSY LEFTon MAMMO POST BIOPSY LEFT Patient: LORA MARTINS Exam Date: 09/22/2021 : 1980 Gender:F Ordering : KP [facility] [employer] Admission #: [id number] Family : Order #: [id number] CLICK HERE TO VIEW EXAM RADIOLOGY REPORT [...] Nielsen M.D. on 09/22/2021 at 10:14 Normal [facility] Vital Signs Date Time Vital Sign Value Performing Clinician Sarthak umana 12-19-2023 23:00-0400 Diastolic blood pressure 91 mm[Hg] Reza Bedoya [facility] 12-19-2023 23:00-0400 Heart rate 63 /min Reza Bedoya [facility] 12-19-2023 23:00-0400 Hourly Rounding Reza Bedoya [facility] 12-19-2023 23:00-0400 Mean blood pressure 107 mm[Hg] Reza Aureliano [facility] 12-19-2023 23:00-0400 Promise to Return Reza Aureliano [facility] 12-19-2023 23:00-0400 SaO2% (BldA) [Mass fraction] 100 % Reza Aureliano [facility] 12-19-2023 23:00-0400 Systolic blood pressure 140 mm[Hg] Reza Aureliano [facility] 12-19-2023 22:00-0400 Diastolic blood pressure 87 mm[Hg] Reza Aureliano [facility] 12-19-2023 22:00-0400 Heart rate 64 /min Reza Aureliano [facility] 12-19-2023 22:00-0400 Hourly Rounding Reza Aureliano [facility] 12-19-2023 22:00-0400 Mean blood pressure 100 mm[Hg] Reza Aureliano [facility] 12-19-2023 22:00-0400 Promise to Return Reza Aureliano [facility] 12-19-2023 22:00-0400 Systolic blood pressure 127 mm[Hg] Reza Aureliano [facility] 12-19-2023 21:00-0400 Diastolic blood pressure 86 mm[Hg] Reza Aureliano [facility] 12-19-2023 21:00-0400 Heart rate 58 /min Reza Aureliano [facility] 12-19-2023 21:00-0400 Hourly Rounding Reza Aureliano [facility] 12-19-2023 21:00-0400 Mean blood pressure 104 mm[Hg] Reza Bedoya [facility] 12-19-2023 21:00-0400 Promise to Return Reza Bedoya [facility] 12-19-2023 21:00-0400 SaO2% (BldA) [Mass fraction] 99 % Reza Bedoya [facility] 12-19-2023 16:05-0400 Body temperature 98.24 [degF] Reza Bedoya [facility] 12-19-2023 16:05-0400 Heart rate 84 /min Reza Bedoya [facility] 12-19-2023 16:05-0400 Respiratory rate 18 /min Reza Bedoya [facility] Encounters Encounter Date Encounter Type Care Provider Facility Start: 04-19-2024 ambulatory Celeste Talal Sarmini Facility:[facility] [place] Start: 02-07-2024 End: 02-07-2024 ambulatory Celeste Talal Sarmini [facility] Start: 01-19-2024 End: 01-19-2024 [facility] [place] Start: 01-11-2024 End: 01-11-2024 ambulatory CYNDI AICHHOLZ Not Available Start: 01-10-2024 End: 01-10-2024 ambulatory Samuel Lacey [facility] Work Phone: Start: 01-10-2024 End: 01-10-2024 Departed Referred DO Samuel Lacey Work Phone: [facility] Start: 12-26-2023 End: 12-26-2023 ambulatory SAMUEL LACEY Not Available Start: 12-22-2023 End: 12-22-2023 ambulatory CYNDI AICHHOLZ Not Available Start: 12-20-2023 ambulatory [facility] Start: 12-19-2023 End: 12-19-2023 Emergency department patient visit Reza Bedoya [facility] Start: 12-19-2023 ambulatory Reza Bedoya Facility:[facility] Start: 09-17-2022 End: 09-17-[address] WILDER OWENS . Facility:[facility] Start: 04-08-2022 End: 04-09-[address] MIKE JEAN Facility:[facility] Start: 03-22-2022 Encounter for preprocedural laboratory examination DR WILDER OWENS . [facility] Start: 03-22-2022 End: 03-23-2022 Evaluation and [...] OWENS . Facility:[facility] Start: 01-28-2022 ambulatory KP FROSTA RADHA Facil ity:[facility] Start: 01-27-2022 End: 01-28-[address] WILDER OWENS . Facility:[facility] Start: 01-05-2022 End: 01-05-2022 ambulatory KP FROSTA RADHA Facility:[facility] Start: 12-29-2021 End: 12-30-2021 ambulatory EVENING ANCHOR CYNDI RADHA Facility:[facility] Start: 11-02-2021 ambulatory EVENING ANCHOR CYNDI RADHA Facil ity:[facility] Start: 10-29-2021 ambulatory EVENING ANCHOR CYNDI RADHA Facil ity:[facility] Start: 09-22-2021 End: 09-22-2021 ambulatory EVENING ANCHOR CYNDI RADHA Facility:[facility] Procedures Date Procedure Procedure Detail Performing Clinician Start: 03-22-2022 Resection of Bilater al Fallopian Tubes, Via Natural or Artificial Opening KP CYNDI EPPERSON Start: 03-22-2022 Resection of Uterus, Via Natural or Artificial Opening EVENING ANCHOR CYNDI EPPERSON Payers Date Payer Category Payer Self-pay [id number] 1980 Unknown [id number] 2.16.84 0.1.806058.3.579.2.593 1980 Unknown [id number] 2.16.84 0.1.216501.3.579.2.593 1980 Unknown [id number] 2.16.84 0.1.446387.3.579.2.593 1978 Unknown [id number] 2.16.84 0.1.876169.3.579.2.593 1978 Unknown [id number] 2.16.84 0.1.743628.3.579.2.593 1978 Unknown [id number] 2.16.84 0.1.318225.3.579.2.593 1978 Unknown [id number] 2.16.84 0.1.091303.3.579.2.593 1978 Unknown [id number] 2.16.84 0.1.165966.3.579.2.593 1978 Unknown [id number] 2.16.84 0.1.516506.3.579.2.593 1978 Unknown [id number] .16.84 0.1.330603.3.579.2.593 1978 Unknown [id number] 2.16.84 0.1.823494.3.579.2.593 1978 Unknown [id number] 2.16.84 0.1.594643.3.579.2.593 1978 Unknown [id number] 2.16.84 0.1.967874.3.579.2.593 1978 Unknown [id number] 2.16.84 0.1.318554.3.579.2.593 1978 Unknown [id number] 2.16.84 0.1.324933.3.579.2.593 1978 Unknown [id number] 2.16.8 40.1.380572.3.579.2.727 1978 Unknown [id number] 2.16.8 40.1.366952.3.579.2.727 1978 Unknown [id number] 2.16.8 40.1.417161.3.579.2.727 1978 Unknown [id number] 2.16.84 0.1.098499.3.579.2.1259 1978 Unknown [id number] 2.16.84 0.1.477325.3.579.2.1259 1978 Unknown [id number] 2.16.84 0.1.453542.3.579.2.1259 1978 Unknown [id number] 2.16.8 40.1.818139.3.579.2.727 1978 Unknown [id number] 2.16.8 40.1.402096.3.579.2.727 1978 Unknown [id number] 2.16.8 40.1.930858.3.579.2.727 1978 Unknown [id number] 2.16.8 40.1.120704.3.579.2.727 1978 Unknown [id number] 2.16.8 40.1.300483.3.579.2.727 1978 Unknown [id number] 2.16.8 40.1.083026.3.579.2.727 1959 Unknown [id number] 1959 Unknown [id number] Unknown [place] BC/BS [id number] Unknown [id number] 2.16.8 40.1.588916.3.579.2.531 Social History Date Type Detail Facility Tobacco smoking status Nura rogers [facility] Sex Assigned At Female [facility] Start: 1980 Sex Assigned At Female [facility] Functional Status Date Assessment Result Facility 12-19-2023 Functional Status N/A [facility] Clinical Note 12-20-2023 Note Date & Type Note Facility 12-20-2023 Note Progress Note-Nurse Patient called requesting Zofran after yesterdays visit. Sent to pharmacy per BING Bhakta [facility] Discharge instructions 12-20-2023 Note Date & Type Note Facility 12-20-2023 Hospital Discharg e instructions Patient Education 12/19/2023 23:16:40 Hepatomegaly, Fmii-bn-Gzwo Hepatomegaly Hepatomegaly is when the liver is [...] asked to do the following: Medicines Take dvsk-tuf-zvzazrm and prescription medicines only as told by your doctor. Do not take any new medicine unless your doctor says it is okay. ?This includes vitamins, herbs, supplements, and ikxd-uvw-klnhrhj medicines. Some of these can hurt your [...] provider. Document Revised: 03/24/2022 Document Reviewed: 03/24/2022 [employer] Patient Education 2022 [employer]. 12/19/2023 23:16:40 Abdominal Pain, Adult Abdominal Pain, [...] Follow these instructions at home: Medicines Take huzd-wgd-pdnaptu and prescription medicines only as told by [...] Watch your condition for any changes. Take japw-kka-yrdoyxa and prescription medicines only as told by [...] provider. Document Revised: 06/13/2020 Document Reviewed: 09/03/2019 [employer] Patient Education 2022 [employer]. Follow Up Care 12/19/2023 16:03:37 With:Booker Shelley Address: [address], [address] [address] [phone] Business (1) When:12/22/2023 With:CYNDI EPPERSON Address: [place] [address] [phone] Business (1) When:Within 3 Day(s) [facility] Clinical Note 12-19-2023 Note Date & [...] to do the following: Medicines ? Take xwhf-zjg-kddsdsg and prescription medicines only as told by your doctor. ? Do not take any new medicine unless your doctor says it is okay. ? This includes vitamins, herbs, supplements, and fyme-wyg-uodpxts medicines. Some of these can hurt your [...] provider. Document Revised: 03/24/2022 Document Reviewed: 03/24/2022 [employer] Patient Education ? 2022 [employer] Abdominal Pain, Adult Pain in the [...] these instructions at home: Medicines ? Take kryc-gru-sshaduw and prescription medicines only as told by [...] You (more content not included)... [facility] Evaluation + Plan note Note Date & Type Note Facility Evaluation + Plan note No data available for this section [facility] Evaluation note Note Date & Type Note Facility Evaluation note [facility] note Note Date & Type Note Facility Progress note No data available for this section [facility] Summary Purpose Family History No Family [...] and content) DATE CREATED AUTHOR 09/20/2022 [facility] DATE CREATED AUTHOR AUTHOR'S ORGANIZ ATION 12/20/2023 [facility] DATE CREATED AUTHOR AUTHOR'S ORGANIZ ATION 12/21/2023 [facility] DATE CREATED AUTHOR AUTHOR'S ORGANIZ ATION 01/11/2024 [facility] DATE CREATED AUTHOR AUTHOR'S ORGANIZ ATION 01/13/2024 [facility] EP[facility] DATE CREATED AUTHOR AUTHOR'S ORGANIZ ATION 01/21/2024 [facility] DATE CREATED AUTHOR AUTHOR'S ORGANIZ ATION 02/08/2024 [facility] Patient Care team informatio n (unrecognized [...] ON THE PRIMARY CLINICAL RECORDS. [facility] [employer] Consult [facility]. provides no warranty or guarantee of the accuracy or completeness of information in this document.
[2024-02-09] MEDS: FAMOTIDINE/PF 20 MG/2 ML VIAL IV (03:10)
[2024-02-09] MEDS: ONDANSETRON PF 4 MG/2 ML VIAL IV (03:10)
[2024-02-09] MEDS: KETOROLAC TROMETHAMINE 30 MG/ML VIAL IVP (03:10)
[2024-02-09 03:23] LABS: Basophils Absolute Auto 0.1 10^3/uL (0.0-0.1); Basophils Percent Auto 0.6 % (0.2-2.0); Eosinophils Absolute Auto 0.1 10^3/uL (0.0-0.7); Eosinophils Percent Auto 1.1 % (0.9-7.0); Hemoglobin 12.6 g/dL (12.0-16.0); Immature Granulocytes Abs Auto 0.01 10^3/uL (0.00-0.03); Immature Granulocytes Pct Auto 0.1 % (0.0-0.5); Lymphocytes Percent Auto 33.2 % (20.5-60.0); Mean Corpuscular Volume 91.4 fL (81.0-99.0); Mean Platelet Volume 10.7 fL (9.5-13.5); Monocytes Absolute Auto 0.5 10^3/uL (0.3-0.8); Monocytes Percent Auto 5.8 % (1.7-12.0); Neutrophils Absolute Auto 5.4 10^3/uL (1.4-6.5); Neutrophils Percent Auto 59.2 % (43.0-75.0); Platelet Count 152 10^3/uL (150-450); Red Blood Count 3.94 10^6/uL (4.20-5.40); Red Cell Distribution Width 12.1 % (11.0-15.0); White Blood Count 9.1 10^3/uL (4.0-11.0)
[2024-02-09 03:39] LABS: Alanine Aminotransferase 15 U/L (14-59); Albumin Globulin Ratio 1.4; Albumin Level 3.7 g/dL (3.4-5.0); Alkaline Phosphatase 35 U/L (46-116); Anion Gap 10.4; Aspartate Amino Transferase 13 U/L (15-37); BUN Creatinine Ratio 19.3; Bilirubin Total 0.9 mg/dL (0.2-1.0); Calcium 8.7 mg/dL (8.5-10.1); Chloride 103 mmol/L (98-107); Estimated GFR (African America >60 (>=60 mL/min/1.73m^2); Estimated GFR (Non-African Ame >60 (>=60 mL/min/1.73m^2); Globulin 2.6 g/dL; Glucose 83 mg/dL (74-106); Potassium 3.4 mmol/L (3.5-5.1); Sodium 137 mmol/L (136-145); Total Protein 6.3 g/dL (6.4-8.2)
[2024-02-09 03:41] LABS: Lactate/Lactic Acid 0.6 mmol/L (0.4-2.0)
[2024-02-09] MEDS: HYDROCODONE/ACET 5-325 MG TABLET 2 TAB PO (04:14)
[2024-02-09 04:16] VITALS: BP 124/82
== END 2024-02-09 04:17 | disposition home or self-care (01) ==
PROVIDERS: Emergency Provider Emergency Medicine; PCP Nurse Practitioner
DX: R10.9 Unspecified abdominal pain (principal); Z87.891 Personal history of nicotine dependence
CPT/HCPCS: 36415; 80053; 83605; 83690; 85025; 93005; 96374; 96375; 99284; J1885; J2405

== ENCOUNTER 2024-02-21 16:18 | Emergency (ER) | payer OTHER, SELFPAY ==
[2024-02-21] VITALS (22 sets, daily range): BP systolic 124–168; BP diastolic 77–101; PULSE 63–79; TEMP 36.4; O2SAT 83–100; BMI 19.7
--- NOTE | 2024-02-21 16:28 | ECG_ITS ---
[facility] Test Date: 2024-02-21 Pat Name: LORA MARTINS Department: Room: - Gender: Female [employer] Producer: : 1980 Requested By: DAPHNE GARCIA Order Number: [id number] Reading MD: ART PARR Measurements Intervals [place] Rate: 74 P: 69 MN: 162 QRS: 66 QRSD: 84 T: 54 QT: 360 QTc: 387 Interpretive Statements 1100 Sinus rhythm 9110 normal ECG Compared to ECG 02/09/2024 02:32:19 Ventricular premature complex(es) no longer present Electronically Signed On 02-23-2024 5:11:57 EDT by ART PARR
--- OUTSIDE RECORDS SUMMARY | 2024-02-21 16:33 | XMS_ITS | CCD ---
Author Organization [facility] Informat ion Partnership [facility] Care Team Providers Care Supervisor Welding Equipment Repairer Name Role Phone AICHOLZ, VEHICLE MAINTENANCE SUPERVISOR CYNDI Consulting Unavailable AICHHOLZ, VEHICLE MAINTENANCE SUPERVISOR CYNDI Primary Care Unavailable AICHOLZ, VEHICLE MAINTENANCE SUPERVISOR CYNDI Attending Unavailable AICHOLZ, VEHICLE MAINTENANCE SUPERVISOR CYNDI Admitting Unavailable ROVERTO, DR BURAK Rogers Consulting Unavailable KARASIK ., DR HDZ Consulting Unavailabl e AICHHOLZ, VEHICLE MAINTENANCE SUPERVISOR CYNDI Primary Care Unavailable KARASIK ., DR HDZ Attending Unavailabl e KARASIK ., DR HDZ Admitting Unavailabl e PIPPA LOVING Consulting Unavaila ble GEMBUSNUPUR Consulting Unavailable KARASIK ., DR HDZ Consulting Unavailabl e AICHHOLZ, [facility] CYNDI Primary Care Unavailable KARASIK ., DR HDZ Attending Unavailabl e KARASIK ., DR HDZ Admitting Unavailabl e PAO RAMON Consulting Unavailable AICHHOLZ, VEHICLE MAINTENANCE SUPERVISOR CYNDI Primary Care Unavailable KARASIK ., DR HDZ Attending Unavailabl e KARASIK ., DR HDZ Admitting Unavailabl e AICHHOLZ, VEHICLE MAINTENANCE SUPERVISOR CYNDI Primary Care Unavailable KARASIK ., DR HDZ Attending Unavailabl e KARASIK ., DR HDZ Admitting Unavailabl e AICHHOLZ, VEHICLE MAINTENANCE SUPERVISOR CYNDI Primary Care Unavailable KARASIK ., DR HDZ Attending Unavailabl e KARASIK ., DR HDZ Admitting Unavailabl e KARASIK ., DR HDZ Consulting Unavailabl e AICHHOLZ, VEHICLE MAINTENANCE SUPERVISOR CYNDI Primary Care Unavailable KARASIK ., DR HDZ Attending Unavailabl e KARASIK ., DR HDZ Admitting Unavailabl e KARASIK ., DR HDZ Consulting Unavailabl e KARESTEPHANIA SUN Admitting Unavailable AICHHOLZ, VEHICLE MAINTENANCE SUPERVISOR CYNDI Primary Care Unavailable KARASIK ., DR HDZ Attending Unavailabl e TED, DR MIKE Flores Consulting Unavailable AICHHOLZ, VEHICLE MAINTENANCE SUPERVISOR CYNDI Primary Care Unavailable AICHHOLZ, VEHICLE MAINTENANCE SUPERVISOR CYNDI Attending Unavailable AICHHOLZ, VEHICLE MAINTENANCE SUPERVISOR CYNDI Admitting Unavailable AICHHOLZ, VEHICLE MAINTENANCE SUPERVISOR CYNDI Consulting Unavailable AICHHOLZ, VEHICLE MAINTENANCE SUPERVISOR CYNDI Consulting Unavailable AICHHOLZ, VEHICLE MAINTENANCE SUPERVISOR CYNDI Primary Care Unavailable AICHHOLZ, VEHICLE MAINTENANCE SUPERVISOR CYNDI Attending Unavailable AICHHOLZ, VEHICLE MAINTENANCE SUPERVISOR CYNDI Admitting Unavailable AICHHOLZ, VEHICLE MAINTENANCE SUPERVISOR CYNDI Consulting Unavailable AICHHOLZ, VEHICLE MAINTENANCE SUPERVISOR CYNDI Primary Care Unavailable AICHHOLZ, VEHICLE MAINTENANCE SUPERVISOR CYNDI Attending Unavailable AICHHOLZ, VEHICLE MAINTENANCE SUPERVISOR CYNDI Admitting Unavailable AICHHOLZ, VEHICLE MAINTENANCE SUPERVISOR CYNDI Consulting Unavailable AICHHOLZ, VEHICLE MAINTENANCE SUPERVISOR CYNDI Primary Care Unavailable AICHHOLZ, VEHICLE MAINTENANCE SUPERVISOR CYNDI Attending Unavailable AICHHOLZ, VEHICLE MAINTENANCE SUPERVISOR CYNDI Admitting Unavailable KARASIK ., DR HDZ Consulting Unavailabl e AICHHOLZ, VEHICLE MAINTENANCE SUPERVISOR CYNDI Primary Care Unavailable KARASIK ., DR HDZ Attending Unavailabl e KARASIK ., DR HDZ Admitting Unavailabl e KARASIK ., DR HDZ Consulting Unavailabl e AICHHOLZ, VEHICLE MAINTENANCE SUPERVISOR CYNDI Primary Care Unavailable KARASIK ., DR HDZ Attending Unavailabl e KARASIK ., DR HDZ Admitting Unavailabl e HEATHER SWEENEY Consulting Unavailable KARASIK ., DR HDZ Procedure Practitioner Pina vailable ADINA YIP Consulting Unavailable AICHHOLZ, VEHICLE MAINTENANCE SUPERVISOR CYNDI Primary Care Unavailable KARASIK ., DR HDZ Attending Unavailabl e KARASIK ., DR HDZ Admitting Unavailabl e AICHHOLZ, CYNDI J Primary Care Physician Reza Bedoya Attending Unavailable DO Samuel Lacey Attending Provider AICHMICKZ, CYNDI Attending Unavailable SAMUEL LACEY Attending Unavailable AICHHOLZ, CYNDI Attending Unavailable Reza Bedoya Attending Unavailable Booker Shelley Attending Unavaila Booker Garnica Attending Unavaila Samuel Goldberg Attending Unavailable Samuel Lacey Admitting Unavailable Booker Shelley Referring Unavaila Booker Garnica Attending Unavaila ble Booker Shelley Admitting Unavaila ble Allergies Allergy Classification Reported Allergen(s) Allergy Type Date of Onset Reaction(s) Facility (1 source) Penicillins Drug allergy (disorder) 5 [facility] Repository (1 source) Misc-Other; Translations: [Misc-Other] Propensity to adverse reactions (disorder) 2 [facility] Repository (7 sources) Amoxicillin; Translations: [amoxicillin] Drug Allergy Unkempt [facility] Medications Current Medications Medication Drug Class(es) Dates Sig (Normalized) Sig (Original) dicyclomine hydrochloride 10 mg oral capsule (2 sources) Anticholinergic Start: 01-19-2024 dicyclomine 10 mg Cap Refills(s) 0 Start Date: 01/19/24 Status: Ordered Start: 12-19-2023 End: 12-26-2023 take 1 capsule by mouth every six hours as needed for muscle spasms Bentyl 10 mg Cap 10 mg = 1 cap(s), Oral, q6hr, PRN Spasm, X 7 day(s), # 30 cap(s), Refills(s) 0, Pharmacy: [facility]/pharmacy #[id number], 170.2, cm, 12/19/23 16:15:00 EDT, Height/Length Dosing, 57.8, kg, 12/19/23 16:15:00 EDT, Weight Dosing Start Date: 12/19/23 Stop Date: 12/26/23 Status: Ordered omeprazole 20 mg delayed release oral capsule (1 source) Proton Pump Inhibitor Start: 01-19-2024 omeprazole 20 mg Cap-DR BID, Refills(s) 0 Start Date: 01/19/24 Status: Ordered ondansetron 4 mg oral tablet (1 source) Serotonin-3 Receptor Antagonist Start: 01-19-2024 take 1 tablet by mouth every eight hours as needed for nausea Zofran 4 mg Tab 4 mg = 1 tab(s), Oral, q8hr, PRN Nausea/Vomiting, # 60 tab(s), Refills(s) 3, Pharmacy: [facility]/pharmacy #[id number], 170, cm, 01/19/24 12:39:00 EDT, Height/Length Dosing, 58.2, kg, 01/19/24 12:39:00 EDT, Weight Dosing Start Date: 01/19/24 Status: Ordered traMADol hydrochloride 50 mg oral tablet (1 source) Opioid Agonist Start: 12-19-2023 take 0.5-1 tablets by mouth every six hours as needed for pain traMADOL 50 mg Tab 0.5-1 tab(s), Oral, q6hr, PRN as needed for pain, # 12 tab(s), Refills(s) 0, Pharmacy: [facility]/pharmacy #[id number], 170.2, cm, 12/19/23 16:15:00 EDT, Height/Length Dosing, 57.8, kg, 12/19/23 16:15:00 EDT, Weight Dosing Start Date: 12/19/23 Status: Ordered Zofran ODT 4 mg Tab-Dis (1 source) Start: 12-20-2023 take 1 tablet by mouth three times daily Zofran ODT 4 mg Tab-Dis 4 mg = 1 tab(s), Oral, TID, # 15 tab(s), Refills(s) 0, Pharmacy: [facility]/pharmacy #[id number], 170.2, cm, 12/19/23 16:15:00 EDT, Height/Length Dosing, 57.8, kg, 12/19/23 16:15:00 EDT, Weight Dosing Start Date: 12/20/23 Status: Ordered Problems Active Problems Problem Classification Problem Date Documented Date Episodic/Chronic Endometriosis (1 source) Endometriosis, unspecified; Translations: [ENDOMETRIOSIS [...] DYSPAREUNIA] Onset: 03-22-2022 Chronic Other liver diseases (2 sources) Large liver; Translations: [Hepatomegaly, not elsewhere classified] [...] Classification Problem Date Documented Da te Episodic/Chronic Abdominal pain (3 sources) Pelvic and perineal pain; Translations: [Abdominal pain] Onset: 03-30-2022 Episodic Contraceptive and procreative management (1 source) Tubal [...] Test Name Value Interpretation Reference Range Facility NM Gastric Emptying Studyon 02-09-2024 NM Gastric Emptying Study Exam Date/Time: 02/07/2024 11:36 EDT Reason for Exam: Other (please specify) Report IMPRESSION: ESSENTIALLY NORMAL GASTRIC EMPTYING. EXAM: NM Gastric Emptying Study DATE: 02/07/2024 7:58 AM CLINICAL HISTORY: Nausea and vomiting. COMPARISON: CT abdomen and pelvis 12/19/2023. TECHNIQUE: 0.8 mCi of technetium 99m sulfur colloid was eaten with 4 oz egg-beaters, 1 slice of toast, 14 g of jelly, and 120 mL of water. Anterior and posterior planar images were obtained initially, at one half hour, one hour, 2 hours, and 3 hours after ingestion. FINDINGS: Percent gastric retention at 0.5 hours, 1 hour, 2 hours, and 3 hours is: 73.6%, 36.8%, 11.9%, and 5.3% respectively. 0.5 hr (Lower limit 70%) 1 hr (Lower limit 30%, Upper limit 90%) 2 hr (Upper limit 60%) 3 hr (Upper limit 30%) 4 hr (Upper limit 10%) Ordering Provider: Booker Shelley FINAL REPORT Dictated: 02/09/2024 3:[address] MD Signed (Electronic Signature): 02/09/2024 3:15 pm Signed by: Jayant St MD Transcribed by: YAHIR Technologist: CORRIE Technical Comments Dose (mCi Tc99m Sulfur Colloid): 0.8 Dose Administered With: 4oz egg beaters, 1 slice of toast, 14g jelly Time Frame Required to Ingest the Meal (mins): 10 % Remainin.5 hr (Lower Limit 70%) 73.6 1.0 hr (Lower Limit 30%, Upper Limit 90%) 36.8 2.0 hr (Upper Limit 60%) 11.9 3.0 hr (Upper Limit 30%) 5.3 Normal [facility] Gastroenterology Office/Clin ic Noteon 01-19-2024 Gastroenterology Office/Clinic Note Gastroenterology Office/Clinic Note Chief Complaint Abdominal pain HPI Staff Patient is a(n) 43 year old female who presents today for a f/u from [facility] 12/19/23 for acute abdominal pain and hepatomegaly. Fhx fatty liver disease. Denies previous EGD/Colonoscopy. Denies Fhx colon cancer. Denies blood thinners/GLP-1 agonists. Patient states that last Tuesday she had colonoscopy and EGD at [facility]. Abdominal pain: When did you first have this pain: 2-3 months Quality (sharp, dull):constant pressure type pain and when eating she will get left sided pain that is sharp. Constant or comes or go: constant location and radiation: upper abdomen and left side. Relation to food: Food does not improve/worsen symptoms. Has lack of appetite. Worse with food. EGD/Colon 01/10/24 @ [place]: Normal colon CT 12/15/23 @ [place]: IMPRESSION: 1. Heterogeneous enlarged liver. Correlate with labs. 2. No acute bowel or inflammatory findings. Normal appendix. 3. Simple 1 cm right renal cyst. RUQ US 12/16/23: IMPRESSION: 1. No acute or specific findings to account for patient's symptoms. 2. No suspicious abnormality of the liver. CT 12/19/23: IMPRESSION: NO ACUTE INTRA-ABDOMINAL PROCESS IDENTIFIED. HIDA 01/04 @ [place]: IMPRESSION: 1. Normal nuclear medicine HIDA scan. [...] 91.3 fL (12/19/23) Chloride: 103 mmol/L (12/19/23) [place] Absolute: 0.6 E9/L (12/19/23) CO2: 29 mmol/L (12/19/23) [place] Auto: 4.8 % (12/19/23) Creatinine: 0.9 mg/dL [...] Nausea/Vomiting, # 60 tab(s), Refills(s) 3, Pharmacy: [facility]/pharmacy #[id number], 170, cm, 01/19/24 12:39:00 EDT, Height/Length [...] tab(s), Oral, (more content not included)... Normal [facility] Comment on above: Result Comment: Elec tronically Signed By: Daphney MCKINLEY, Booker Jenkins\.br\Date and Time Signed: 01/19/24 13:00 EDT Deejay 01-10-2024 L Specimen: [id number] Received: 01/12/24-134 Status: SOUT Req Num: [id number] Spec Type: Surgical Subm Dr: Samuel Lacey, Tissues: A STOMACH FOR HP (PREPYLORIC BX R/O H PYLORI) Procedures: HE/2, Gross/Micro L4, H PYLORI, RECUT Age/ Patient Sex Location Account Attending Physician ArtemioLora 43/F LABELL [id number] Samuel Lacey DO SPEC NUM: [id number] RECD: 01/12/24 STATUS: KATHERINE MARKS NUM: [id number] [place]: 01/10/24 [facility] DR: Samuel Lacey DO ENTERED: 01/12/24-[address]: [place],Lab SPEC TYPE: Surgical DEPT: ARUNA LAWLER ENTERED BY: [id number] RECV BY: [id number] ORDERED: HE/2, Gross/Micro L4, H PYLORI, RECUT ORDERED: HE/2, Gross/Micro L4, H PYLORI, RECUT Supplemental Report Addendum 1 Entered: 02/02/24 Supplemental for findings of H. pylori immunostain as performed per clinician's specimen requisition sheet: -H. pylori immunostain with appropriate control is also negative for identified Helicobacter organism or infection CPT: 30344 Addendum Signed (signature on file) Karen Bhardwaj MD 02/02/24926 Pathological Diagnosis Prepyloric gastric biopsy: -Antral mucosa with mild reactive gastropathy, including minor associated congestion without any other specific changes (no erosion, intestinal metaplasia, or any significant stromal chronic inflammation) Specimen: [id number] Received: 01/12/24 Status: WHITGigi Marks Num: [id number] Spec Type: Surgical Subm Dr: Samuel Lacey DO Tissues: A STOMACH FOR HP (PREPYLORIC BX R/O H PYLORI) Procedures: HE/2, Gross/Micro L4, H PYLORI, RECUT Patient: Lora Martins [id number] (Continued) Specimen: [id number] Received: 01/12/24 (Continued) Pathological Diagnosis (Continued) Signed (signature on file) Karen Bhardwaj MD 02/02/24 0851 Specimen: [id number] Received: 01/12/24 Status: KATHERINE Marks Num: [id number] Spec Type: Surgical Subm Dr: Samuel Lacey DO Tissues: A STOMACH FOR HP (PREPYLORIC BX R/O H PYLORI) Procedures: HE/2, Gross/Micro L4, H PYLORI, RECUT Patient: Lora Martins [id number] (Continued) Specimen: [id number] Received: 01/12/24 (Continued) Pathological Diagnosis (Continued) -Also no other specific features of Helicobacter infection per routine H E morphological assessment Clinical Information Normal EGD Gross Description The specimen was received in formalin with the patient's name and prepyloric biopsy is a castelan irregular shaped portion of soft tissue measuring 0.3 cm in greatest dimension. The specimen is entirely submitted in cassette A1 Microscopic Description Microscopic examinations are performed supporting the above interpretation CPT Codes 08429 Specimen: [id number] Received: 01/12/24 Status: KATHERINE Marks Num: [id number] Spec Type: Surgical Subm Dr: Samuel Lacey DO Tissues: A STOMACH FOR HP (PREPYLORIC BX R/O H PYLORI) Procedures: HE/2, Gross/Micro L4, H PYLORI, RECUT Patient: Lora Martins [id number] (Continued) Signed (signature on file) Karen Bhardwaj MD 02/02/24 0851 Normal [facility] CT Abdomen/Pelvis w/ Contras ton 12-20-2023 CT [...] Contrast amount in ml's: 100 Normal [facility] ED Note-Physicianon 12-20-19 ED Note-Physician ED Note-Physician Basic Information Time Seen: Emily Troy PA-C. 12/19/2023 17:17 Chief Complaint was at [place] for diaphram pain. had ct's done. still [...] The patient states she was seen at [facility] last Tuesday. She states they did [...] in length (more content not included)... Normal [facility] Comment on above: Result Comment: Elec tronically Signed By: Emily Troy PA-C.br\Date and Time Signed: 12/19/23 23:05 EDT\.br\Electronically Co-Signed By: Emily Troy PA-C\.br\Date and Time Co-Signed: 12/19/23 23:06 EDT\.br\Electronically Co-Signed By: Emily Troy PA-C\.br\Date and Time Co-Signed: 12/19/23 23:22 EDT\.br\Electronically Co-Signed By: Reza Bedoya DO\.br\Date and Time Co-Signed: 12/20/23 07:02 EDT BMPon 12-19-2023 Anion gap [Moles/Vol] 10 mmol/L Normal 6-16 [facility] Comment on above: Performed By: #### 2 [id number] #### [facility] [address] [place] [address] Calcium [Mass/Vol] 9.7 mg/dL Normal 8.9-11.1 [facility] Comment on above: Performed By: #### 2 [id number] #### [facility] [address] [place] [address] Chloride [Moles/Vol] 103 mmol/L Normal 101-111 [facility] Comment on above: Performed By: #### 2 [id number] #### [facility] [address] [place] [address] CO2 [Moles/Vol] 29 mmol/L Normal 21-31 [facility] Comment on above: Performed By: #### 2 [id number] #### [facility] [address] [place] [address] Creatinine [Mass/Vol] 0.9 mg/dL Normal 0.5-1.3 [facility] Comment on above: Performed By: #### 2 797209 #### [facility] [address] [place] [address] Glucose [Mass/Vol] 92 mg/dL Normal 55-199 [facility] Comment on above: Performed By: #### 2 253413 #### [facility] [address] [place] [address] Potassium [Moles/Vol] 4.3 mmol/L Normal 3.5-5.3 [facility] Comment on above: Performed By: #### 2 646223 #### [facility] [address] [place] [address] Sodium [Moles/Vol] 138 mmol/L Normal 135-145 [facility] Comment on above: Performed By: #### 2 086190 #### [facility] [address] [place] [address] Urea nitrogen [Mass/Vol] 17 mg/dL Normal 5-21 [facility] Comment on above: Performed By: #### 2 807992 #### [facility] [address] [place] [address] Urea nitrogen/Creatinine [Mass ratio] 19 No Units Normal 10-20 [facility] Comment on above: Performed By: #### 2 752766 #### [facility] [address] [place] [address] CBC w/ Auto Diffon 4 Basophils/100 WBC (Bld) 0.5 % Normal 0.0-2.0 [facility] Comment on above: Performed By: #### 2 714783 #### [facility] [address] [place] [address] Basophils/Leukocytes Auto (Bld) [Pure # fraction] 0.1 E9/L Normal 0.0-0.2 [facility] Comment on above: Performed By: #### 2 876112 #### [facility] [address] [place] [address] Eosinophils (Bld) [#/Vol] 0.1 E9/L Normal 0.0-0.5 [facility] Comment on above: Performed By: #### 2 711381 #### [facility] [address] [place] [address] Eosinophils/100 WBC (Bld) 0.6 % Normal 0.0-8.0 [facility] Comment on above: Performed By: #### 2 988614 #### [facility] [address] [place] [address] Erythrocyte distribution width (RBC) [Ratio] 13.1 % Normal 10.9-14.2 [facility] Comment on above: Performed By: #### 2 135912 #### [facility] [address] [place] [address] Hematocrit (Bld) [Volume fraction] 42.6 % Normal 34.0-46.0 [facility] Comment on above: Performed By: #### 2 203979 #### [facility] [address] [place] [address] Hemoglobin (Bld) [Mass/Vol] 14.7 g/dL Normal 12.0-16.0 [facility] Comment on above: Performed By: #### 2 331798 #### [facility] [address] [place] [address] Lymphocytes (Bld) [#/Vol] 2.2 E9/L Normal 1.0-4.0 [facility] Comment on above: Performed By: #### 2 059058 #### [facility] [address] [place] [address] Lymphocytes/100 WBC (Bld) 18.7 % Normal 14.0-50.0 [facility] Comment on above: Performed By: #### 2 367929 #### [facility] [address] [place] [address] MCH (RBC) [Entitic mass] 31.5 pg Normal 27.0-34.0 [facility] Comment on above: Performed By: #### 2 816651 #### [facility] [address] [place] [address] MCHC (RBC) [Mass/Vol] 34.5 g/dL Normal 31.4-36.0 [facility] Comment on above: Performed By: #### 2 543837 #### [facility] [address] [place] [address] MCV (RBC) [Entitic vol] 91.3 fL Normal 80.0-100.0 [facility] Comment on above: Performed By: #### 2 065517 #### [facility] [address] [place] [address] Monocytes (Bld) [#/Vol] 0.6 E9/L Normal 0.2-1.0 [facility] Comment on above: Performed By: #### 2 383495 #### [facility] [address] [place] [address] Neutrophils (Bld) [#/Vol] 8.7 E9/L High 2.0-7.5 [facility] Comment on above: Performed By: #### 2 267228 #### [facility] [address] [place] [address] Neutrophils/100 WBC (Bld) 75.4 % High 36.0-75.0 [facility] Comment on above: Performed By: #### 2 334735 #### [facility] [address] [place] [address] Platelet mean volume (Bld) [Entitic vol] 8.9 fL Normal 6.4-10.8 [facility] Comment on above: Performed By: #### 2 799597 #### [facility] [address] [place] [address] Platelets (Bld) [#/Vol] 173.0 E9/L Normal 150.0-500.0 [facility] Comment on above: Performed By: #### 2 391428 #### [facility] [address] [place] [address] RBC (Bld) [#/Vol] 4.7 E12/L Normal 4.3-5.9 [facility] Comment on above: Performed By: #### 2 196395 #### [facility] [address] [place] [address] WBC corrected for nucl RBC Auto (Bld) [#/Vol] 11.5 E9/L High 4.0-11.0 [facility] Comment on above: Performed By: #### 2 528112 #### [facility] [address] [place] [address] CHEMISTRYOrdered By: SYSTEM SYSTEM on 12-19-2023 Albumin [...] Sensitivity Troponin I Instructions For Use, Carlos Henderson, December 2017) Urea nitrogen [Mass/Vol] 17 mg/dL Normal 5 - 21 mg/dL Remisol Chem Urea nitrogen/Creatinine [Mass ratio] 19 mg/mg Normal 10 - 20 Remisol Chem COAGULATIONOrdered By: Courtney Sanches on 12-19-2023 aPTT Coag (PPP) [Time] 29.0 s Normal 25.1 - 36.5 second(s) [facility] Auto Coag Comment on above: Interpretive [...] the same coagulation reagent and instrumentation as [facility]. Currently there are no coagulation studies available worldwide for children to 14 days, and no normal ranges. Heparin therapeutic range (represented by Anti-Factor Xa activity of 0.2 - 0.4 U/mL) corresponds to PTT of 56.6 - 109.0 sec. INR Coag (PPP) [Relative time] 1.05 {INR} Invalid Interpretation Code [facility] Auto Coag Comment on above: Interpretive Data: I NR results are specifically intended to assess patients stabilized on long-term Anticoagulation therapy suggested INR s Less Intensive Anticoagulation 2.0 3.0 Conventional Range 3.0 4.5 PT Coag (PPP) [Time] 11.8 s Normal 9.4 - 1 2.5 second(s) [facility] Auto Coag Comment on above: Interpretive [...] the same coagulation reagent and instrumentation as [facility]. Currently there are no coagulation studies available worldwide for children to 14 days, and no normal ranges. ED Clinical Summaryon 2023 ED Clinical Summary ED Clinical Summary [place] [address] ED Clinical Summary Person Information Name: LORA MARTINS/[facility] Age: 43 Years : 1980 Sex: Female Language: Haitian PCP: CYNDI EPPERSON CNP Marital Status: Single [...] 12/19/2023 23:16:39 12/19/2023 23:16:39 12/19/2023 23:16:39 ADDRESS: [address] [place] [id number] [facility] DOC NOTES: MEDICAL INFORMATION: Prescriptions Given: New Medications [id number], [address], [place] [phone], [phone] dicyclomine (Bentyl 10 mg Cap) 1 Capsules By Mouth every 6 hours as needed Spasm for 7 Days. Refills: 0. tramadol (traMADOL 50 mg Tab) 0.5-1 tab(s) By Mouth every 6 hours as needed as needed for pain. Refills: 0. PATIENT EDUCATION INFORMATION: Instructions: Hepatomegaly, Mfsg-di-Nmqq; Abdominal Pain, Adult Follow up: With: Address: When: Celeste Daphney [address], [address], [address] [phone] Business (1) In 3 days 12/22/2023 With: Address: When: CYNDI EPPERSON [address], [place] [phone] Business (1) In 3 days DIAGNOSIS: 1:Acute abdominal pain; 2:Hepatomegaly Normal [facility] ED Patient Summaryon 024 ED Patient Summary ED Patient Summary [address] [address] Patient Discharge Instructions Person Information Name: LORA MARTINS Age: 43 Years Arrival Date: 12/19/2023 15:58:56 Discharge Diagnosis: 1:Acute abdominal pain; 2:Hepatomegaly Primary Care Physician: CYNDI EPPERSON CNP Provider Information Primary Provider: Reza Bedoya DO Advanced Java Technical Architect:None The exam and treatment you received in the Emergency Department were for an urgent problem and are not intended as complete care. It is important that you follow up with a doctor, nurse practitioner, or physician?s fast food sales assistant for ongoing care. If your symptoms become worse or you do not improve as expected and you are unable to reach your usual health care provider, you should return to the Emergency Department. We are available 24 hours a day. LORA MARTINS has been given the following list of patient education materials, prescriptions and follow-up instructions: Follow-up Instructions: With: Address: When: Booker D[address], [address], [employer] [address] [phone] Business (1) In 3 days 12/22/2023 With: Address: When: CYNDI EPPERSON [address] [facility] [place], [place] [phone] [employer] (1) In 3 days In the event that this physician does not participate in your insurance network, please consult with your insurance company to find a nearby participating provider. Patient Education Materials: Hepatomegaly, Yfcq-ok-Zzvs; Abdominal Pain, Adult A MESSAGE TO ALL PATIENTS REGARDING OPIOIDS PRESCRIPTION OPIOIDS: WHAT YOU NEED TO KNOW Prescription opioids can be used to help relieve piaknknh-tn-wdvohz pain and are often prescribed following a [...] opioids abuse (more content not included)... Normal [facility] HEMATOLOGYOrdered By: SYSTEM SYSTEM on 12-19-2023 Basophils/100 [...] 12-19-2023 Albumin [Mass/Vol] 4.3 g/dL Normal 3.3-5.0 [facility] Comment on above: Performed By: #### 2 [id number] #### [facility] [address] [place] [address] Albumin/Globulin (S) [Mass conc ratio] 2.0 Normal 1.1-2.2 [facility] Comment on above: Performed By: #### 2 [id number] #### [facility] [address] [place] [address] ALP [Catalytic activity/Vol] 28 Int._Unit/L Normal 21-98 [facility] Comment on above: Performed By: #### 2 [id number] #### [facility] [address] [place] [address] ALT No additional P-5'-P [Catalytic activity/Vol] 14 Int._Unit/L Normal 6-46 [facility] Comment on above: Performed By: #### 2 [id number] #### [facility] [address] [place] [address] AST [Catalytic activity/Vol] 14 Int._Unit/L Normal 5-43 [facility] Comment on above: Performed By: #### 2 [id number] #### [facility] [address] [place] [address] Bilirubin [Mass/Vol] 1.0 mg/dL Normal 0.0-1.1 [facility] Comment on above: Performed By: #### 2 [id number] #### [facility] [address] [place] [address] Bilirubin.direct [Mass/Vol] 0.1 mg/dL Normal 0.0-0.4 [facility] Comment on above: Performed By: #### 2 [id number] #### [facility] [address] [place] [address] Bilirubin.indirect [Mass or moles/Vol] 0.9 mg/dL Normal 0.1-0.9 [facility] Comment on above: Performed By: #### 2 [id number] #### [facility] [address] [place] [address] Globulin (S) [Mass/Vol] 2.1 g/dL Normal 1.4-4.0 [facility] Comment on above: Performed By: #### 2 [id number] #### [facility] [address] [place] [address] Protein [Mass/Vol] 6.4 g/dL Normal 6.0-7.8 [facility] Comment on above: Performed By: #### 2 [id number] #### [facility] [address] [place] [address] Lipase Levelon 12-19-2023 Lipase [Catalytic activity/Vol] 18 U/L Normal 13-58 [facility] Comment on above: Performed By: #### 2 [id number] #### [facility] [address] [place] [address] PT & PTTon 12-19-2023 aPTT Coag (PPP) [Time] 29.0 second(s) Normal 25.1-36.5 [facility] Comment on above: Result Comment: Para meter [...] the same coagulation reagent and instrumentation as [facility]. Currently there are no coagulation studies available worldwide for children to 14 days, and no normal ranges. Heparin therapeutic range (represented by Anti-Factor Xa activity of 0.2 - 0.4 U/mL) corresponds to PTT of 56.6 - 109.0 sec. Performed By: #### 1 [id number] #### [facility] [address] [place] [address] INR Coag (PPP) [Relative time] 1.05 {INR} Invalid Interpretation Code [facility] Comment on above: Result Comment: INR results are specifically intended to assess patients stabilized on long-term Anticoagulation therapy suggested INR?s ?Less Intensive Anticoagulation? 2.0 ? 3.0 Conventional Range 3.0 ? 4.5 Performed By: #### 1 [id number] #### [facility] [address] [place] [address] PT Coag (PPP) [Time] 11.8 second(s) Normal 9.4-12.5 [facility] Comment on above: Result Comment: 15 d [...] the same coagulation reagent and instrumentation as [facility]. Currently there are no coagulation studies available worldwide for children to 14 days, and no normal ranges. Performed By: #### 1 [id number] #### [facility] [address] [place] [address] Troponin 0 Hr.on 12-19-2023 Troponin HS 2.70 pg/mL Low 10.10-27.10 [facility] Comment on above: Result Comment: The 95% CI (Confidence Interval) PPV (Positive Predictive Value) for myocardial infarction in females is 38 pg/mL, in males 51 pg/mL. The results should be used in conjunction with clinical conditions of myocardial infarction. (Access High Sensitivity Troponin I Instructions For Use, [employer], December 2017) Performed By: #### 1 [id number] #### [facility] [address] [place] [address] Troponin 1 Hr.on 12-19-2023 Troponin HS 2.40 pg/mL Low 10.10-27.10 [facility] Comment on above: Order Comment: 1809 Result Comment: The 95% CI (Confidence Interval) PPV (Positive Predictive Value) for myocardial infarction in females is 38 pg/mL, in males 51 pg/mL. The results should be used in conjunction with clinical conditions of myocardial infarction. (Access High Sensitivity Troponin I Instructions For Use, [employer], December 2017) Performed By: #### 1 [id number] #### [facility] [address] [place] [address] eGFRon 12-19-2023 eGFR 80 mL/min/1.73 m2 Normal >=59 [facility] Comment on above: Order Comment: Order added by Discern Expert. Performed By: #### 1 [id number] #### [facility] [address] [place] [address] [facility]D [place] CA Don 04-08-2022 [facility] [place] CAD Patient: LORA MARTINS Exam Date: 04/08/2022 : 1980 Gender:F Ordering : KP CYNDI EPPERSON [facility] Admission #: [id number] Family : Order #: [id number] CLICK HERE TO VIEW EXAM RADIOLOGY REPORT [...] pancreatic cancer at age 55. LOCATION: [facility] BREAST COMPOSITION: Heterogeneously dense,which may obscure [...] MD on 04/08/2022 at 15:21 Normal [facility] US BREAST [place] LIMITEDon 12-0 US BREAST [place] LIMITED Patient: LORA MARTINS Exam Date: 04/08/2022 : 1980 Gender:F Ordering : KP EPPERSON [employer] Admission #: [id number] Family : Order #: [id number] CLICK HERE TO VIEW EXAM RADIOLOGY REPORT [...] pancreatic cancer at age 55. LOCATION: [facility] BREAST COMPOSITION: Heterogeneously dense,which may obscure [...] MD on 04/08/2022 at 15:21 Normal [facility] BUNon 03-23-2022 Urea nitrogen [Mass/Vol] 18.0 mg/dL Normal 7.0-18.0 [facility] Comment on above: Performed By: #### B UN, CREA #### [facility] [address] [address] [address] Jackie Bhardwaj CBC AUTO DIFFon 03-23-2022 BASO # 0.0 103/ul Normal 0.0-0.1 [facility] Comment on above: Performed By: #### P TT, PT #### [facility] [address] [place] [address] Dr. Jackie Bhardwaj Basophils/100 WBC (Bld) 0.2 % Normal 0.2-2.0 [facility] Comment on above: Performed By: #### P TT, PT #### [facility] [address] [place] [address] Dr. Jackie Bhardwaj EO # 0.1 103/ul Normal 0.0-0.7 [facility] Comment on above: Performed By: #### P TT, PT #### [facility] [address] [place] [address] Dr. Jackie Bhardwaj Eosinophils/100 WBC (Bld) 0.4 % Critically low 0.9-7.0 [facility] Comment on above: Performed By: #### P TT, PT #### [facility] [address] [place] [address] Dr. Jackie Bhardwaj Erythrocyte distribution width (RBC) [Ratio] 12.8 % Normal 11.0-15.0 [facility] Comment on above: Performed By: #### P TT, PT #### [facility] [address] [place] [address] Dr. Jackie Bhardwaj Hematocrit (Bld) [Volume fraction] 30.7 % Critically low 36.0-48.0 [facility] Comment on above: Performed By: #### P TT, PT #### [facility] [address] [place] [address] Dr. Jackie Bhardwaj Hemoglobin (Bld) [Mass/Vol] 10.3 g/dL Critically low 12.0-16.0 [facility] Comment on above: Performed By: #### P TT, PT #### [facility] [address] [place] [address] Dr. Jackie Bhardwaj IG # 0.04 10e3/ul Critically high 0.00-0.03 [facility] Comment on above: Performed By: #### P TT, PT #### [facility] [address] [place] [address] Dr. Jackie Bhardwaj IG % 0.3 % Normal 0.0-0.5 [facility] Comment on above: Performed By: #### P TT, PT #### [facility] [address] [address] [address] Jackie Bhardwaj LYMPH # 2.7 103/ul Normal 1.2-3.8 [facility] Comment on above: Performed By: #### P TT, PT #### [facility] [address] [address] [address] Jackie Bhardwaj Lymphocytes/100 WBC (Bld) 21.0 % Normal 20.5-60.0 [facility] Comment on above: Performed By: #### P TT, PT #### [facility] [address] [address] [address] Jackie Bhardwaj MANUAL DIFF REQ NO Normal [facility] Comment on above: Performed By: #### P TT, PT #### [facility] [address] [place] [address] Dr. Jackie Bhardwaj MCH (RBC) [Entitic mass] 30.7 pg Normal 26.7-34.0 [facility] Comment on above: Performed By: #### P TT, PT #### [facility] [address] [address] [address] Jackie Bhardwaj MCHC (RBC) [Mass/Vol] 33.6 g/dL Normal 29.9-35.2 [facility] Comment on above: Performed By: #### P TT, PT #### [facility] [address] [address] [address] Jackie Bhardwaj MCV (RBC) [Entitic vol] 91.6 fL Normal 81.0-99.0 [facility] Comment on above: Performed By: #### P TT, PT #### [facility] [address] [address] [address] Jackie Bhardwaj MONO # 0.8 103/ul Normal 0.3-0.8 [facility] Comment on above: Performed By: #### P TT, PT #### [facility] [address] [address] [address] Jackie Bhardwaj Monocytes/100 WBC (Bld) 6.2 % Normal 1.7-12.0 [facility] Comment on above: Performed By: #### P TT, PT #### [facility] [address] [address] [address] Jackie Bhardwaj NEUT # 9.2 103/ul Critically high 1.4-6.5 [facility] Comment on above: Performed By: #### P TT, PT #### [facility] [address] [address] [address] Jackie Bhardwaj Neutrophils/100 WBC (Bld) 71.9 % Normal 43.0-75.0 [facility] Comment on above: Performed By: #### P TT, PT #### [facility] [address] [place] [address] Dr. Jackie Bhardwaj Platelet mean volume (Bld) [Entitic vol] 11.2 fL Normal 9.5-13.5 [facility] Comment on above: Performed By: #### P TT, PT #### [facility] [address] [place] [address] Dr. Jackie Bhardwaj PLT 135 103/ul Critically low 150-[address] [facility] Comment on above: Performed By: #### P TT, PT #### [facility] [address] [place] [address] Dr. Jackie Bhardwaj RBC 3.35 106/ul Critically low 4.20-5.40 [facility] Comment on above: Performed By: #### P TT, PT #### [facility] [address] [place] [address] Dr. Jackie Bhardwaj WBC 12.8 103/ul Critically high 4.0-11.0 [facility] Comment on above: Performed By: #### P TT, PT #### [facility] [address] [place] [address] Dr. Jackie Bhardwaj CREATININEon 03-23-2022 Creatinine [Mass/Vol] 0.72 mg/dL Normal 0.55-1.02 [facility] Comment on above: Performed By: #### B UN, CREA #### [facility] [address] [place] [address] Dr. Jackie Bhardwaj EGFR-AF LEBANESE >60 Normal >=60 [facility] Comment on above: Performed By: #### B UN, CREA #### [facility] [address] [address] [address] Jackie Bhardwaj EGFR-NON AF LEBANESE >60 Normal >=60 [facility] Comment on above: Performed By: #### B UN, CREA #### [facility] [address] [address] [address] Jackie Bhardwaj ANTIBODY ID PANELon 03-22-20 22 ANTIBODY ID PANEL Antibody ID Anti-D Blood Bank Notes testing performed at [facility] reference lab Normal [facility] Comment on above: Performed By: #### P TT, PT #### [facility] [address] [place] [address] Dr. Jackie Bhardwaj URon 03-22-2022 , QUAL Negative Normal NEGATIVE [facility] Comment on above: Performed By: #### P TT, PT #### [facility] [address] [address] [address] Jackie Bhardwaj [facility]09 SARS-CoV-2 (COVID-19) RNA JOHN+probe Ql (Unsp spec) Not detected Normal NOT DETECTED [facility] Comment on above: Result Comment: This test is not yet approved or cleared by the [place] FDA. When there are no FDA-approved or cleared tests available, and other criteria are met, FDA can make tests available under an emergency access mechanism called an Emergency Use Authorization (EUA). The EUA for this test is supported by the [employer] of Health and Human Service's (HHS's) declaration [...] SARS-CoV-2. Performed By: #### C VDTBH #### [facility] [address] [address] [address] Jackie Bhardwaj TYPE AND SCREENon 03-18-2022 TYPE AND SCREEN Negative Normal [facility] Comment on above: Performed By: #### P TT, PT #### [facility] [address] [place] [address] Dr. Jackie Bhardwaj LIVER PROFILEon 03-10-2022 Albumin [Mass/Vol] 4.1 g/dL Normal 3.4-5.0 [facility] Comment on above: Performed By: #### L IVER, BMP #### [facility] [address] [place] [address] Dr. Jackie Bhardwaj Albumin/Globulin [Mass ratio] 1.6 {ratio} Normal [facility] Comment on above: Performed By: #### L IVER, BMP #### [facility] [address] [place] [address] Dr. Jackie Bhardwaj ALP [Catalytic activity/Vol] 41 U/L Critically low 46-116 [facility] Comment on above: Performed By: #### L IVER, BMP #### [facility] [address] [place] [address] Dr. Jackie Bhardwaj ALT [Catalytic activity/Vol] 16 U/L Normal 14-59 [facility] Comment on above: Performed By: #### L IVER, BMP #### [facility] [address] [place] [address] Dr. Jackie Bhardwaj AST [Catalytic activity/Vol] 14 U/L Critically low 15-37 [facility] Comment on above: Performed By: #### L IVER, BMP #### [facility] [address] [place] [address] Dr. Jackie Bhardwaj BILI, CONJUGATED 0.1 mg/dL Normal 0.0-0.2 [facility] Comment on above: Performed By: #### L IVER, BMP #### [facility] [address] [place] [address] Dr. Jackie Bhardwaj Bilirubin [Mass/Vol] 0.3 mg/dL Normal 0.2-1.0 [facility] Comment on above: Performed By: #### L IVER, BMP #### [facility] [address] [place] [address] Dr. Jackie Bhardwaj Globulin (S) [Mass/Vol] 2.5 g/dL Normal [facility] Comment on above: Performed By: #### L IVER, BMP #### [facility] [address] [place] [address] Dr. Jackie Bhardwaj Protein [Mass/Vol] 6.6 g/dL Normal 6.4-8.2 [facility] Comment on above: Performed By: #### L IVER, BMP #### [facility] [address] [place] [address] Dr. Jackie Bhardwaj PROF CHEM 8 (BAS METB)on Anion gap [Moles/Vol] 11.6 mmol/L Normal [facility] Comment on above: Performed By: #### L IVER, BMP #### [facility] [address] [place] [address] Dr. Jackie Bhardwaj Calcium [Mass/Vol] 8.8 mg/dL Normal 8.5-10.1 [facility] Comment on above: Performed By: #### L IVER, BMP #### [facility] [address] [place] [address] Dr. Jackie Bhardwaj Chloride [Moles/Vol] 102 mmol/L Normal 98-107 [facility] Comment on above: Performed By: #### L IVER, BMP #### [facility] [address] [place] [address] Dr. Jackie Bhardwaj CO2 [Moles/Vol] 28.9 mmol/L Normal 21.0-32.0 [facility] Comment on above: Performed By: #### L IVER, BMP #### [facility] [address] [place] [address] Dr. Jackie Bhardwaj Creatinine [Mass/Vol] 0.78 mg/dL Normal 0.55-1.02 [facility] Comment on above: Performed By: #### L IVER, BMP #### [facility] [address] [address] [address] Jackie Bhardwaj EGFR-AF LEBANESE >60 Normal >=60 [facility] Comment on above: Performed By: #### Robin MANSFIELD, BMP #### [facility] [address] [address] [address] Jackie Bhardwaj EGFR-NON AF LEBANESE >60 Normal >=60 [facility] Comment on above: Performed By: #### Robin MANSFIELD, BMP #### [facility] [address] [address] [address] Jackie Bahrdwaj Glucose [Mass/Vol] 81 mg/dL Normal 74-106 [facility] Comment on above: Performed By: #### L SHYLA, BMP #### [facility] [address] [address] [address] Jackie Bhardwaj Potassium [Moles/Vol] 3.5 mmol/L Normal 3.5-5.1 [facility] Comment on above: Performed By: #### Robin MANSFIELD, BMP #### [facility] [address] [place] [address] Dr. Jackie Bhardwaj Sodium [Moles/Vol] 139 mmol/L Normal 136-145 [facility] Comment on above: Performed By: #### Robin MANSFIELD, BMP #### [facility] [address] [place] [address] Dr. Jackie Bhardwaj Urea nitrogen [Mass/Vol] 21.0 mg/dL Critically high 7.0-18.0 [facility] Comment on above: Performed By: #### Robin MANSFIELD, BMP #### [facility] [address] [place] [address] Dr. Jackie Bhardwaj Urea nitrogen/Creatinine [Mass ratio] 26.9 mg/mg Normal [facility] Comment on above: Performed By: #### Robin MANSFIELD, BMP #### [facility] [address] [address] [address] Jackie Bhardwaj PROTIMEon 03-10-2022 INR Coag (PPP) [Relative time] 0.98 {INR} Normal [facility] Comment on above: Performed By: #### P TT, PT #### [facility] [address] [place] [address] Dr. Jackie Bhardwaj INR GUIDELINES SEE BELOW Normal [facility] Comment on above: Result Comment: BILLY RED INR: 2.0 - 3.0 CONDITIONS NOT LISTED BELOW 2.5 - 3.5 FOR PROSTHETIC HEART VALVE REPLACEMENT 2.5 - 3.5 RECURRENT THROMBOSIS Performed By: #### P TT, PT #### [facility] [address] [place] [address] Dr. Jackie Bhardwaj PT Coag (PPP) [Time] 10.6 s Normal 9.0-11.6 [facility] Comment on above: Performed By: #### P TT, PT #### [facility] [address] [place] [address] Dr. Jackie Bhardwaj PTTon 03-10-2022 aPTT Coag (Bld) [Time] 26.3 s Normal 22.3-36.2 [facility] Comment on above: Performed By: #### P TT, PT #### [facility] [address] [place] [address] Dr. Jackie Bhardwaj CBC AUTO DIFFon 03-09-2022 BASO # 0.1 103/ul Normal 0.0-0.1 [facility] Comment on above: Performed By: #### P TT, PT #### [facility] [address] [place] [address] Dr. Jackie Bhardwaj Basophils/100 WBC (Bld) 0.6 % Normal 0.2-2.0 [facility] Comment on above: Performed By: #### P TT, PT #### [facility] [address] [place] [address] Dr. Jackie Bhardwaj EO # 0.2 103/ul Normal 0.0-0.7 [facility] Comment on above: Performed By: #### P TT, PT #### [facility] [address] [place] [address] Dr. Jackie Bhardwaj Eosinophils/100 WBC (Bld) 1.8 % Normal 0.9-7.0 [facility] Comment on above: Performed By: #### P TT, PT #### [facility] [address] [place] [address] Dr. Jackie Bhardwaj Erythrocyte distribution width (RBC) [Ratio] 12.7 % Normal 11.0-15.0 [facility] Comment on above: Performed By: #### P TT, PT #### [facility] [address] [place] [address] Dr. Jackie Bhardwaj Hematocrit (Bld) [Volume fraction] 39.1 % Normal 36.0-48.0 [facility] Comment on above: Performed By: #### P TT, PT #### [facility] [address] [place] [address] Dr. Jackie Bhardwaj Hemoglobin (Bld) [Mass/Vol] 12.8 g/dL Normal 12.0-16.0 [facility] Comment on above: Performed By: #### P TT, PT #### [facility] [address] [place] [address] Dr. Jackie Bhardwaj IG # 0.03 10e3/ul Normal 0.00-0.03 [facility] Comment on above: Performed By: #### P TT, PT #### [facility] [address] [place] [address] Dr. Jackie Bhardwaj IG % 0.3 % Normal 0.0-0.5 [facility] Comment on above: Performed By: #### P TT, PT #### [facility] [address] [place] [address] Dr. Jackie Bhardwaj LYMPH # 3.5 103/ul Normal 1.2-3.8 [facility] Comment on above: Performed By: #### P TT, PT #### [facility] [address] [place] [address] Dr. Jackie Bhardwaj Lymphocytes/100 WBC (Bld) 32.7 % Normal 20.5-60.0 [facility] Comment on above: Performed By: #### P TT, PT #### [facility] [address] [place] [address] Dr. Jackie Bhardwaj MANUAL DIFF REQ NO Normal [facility] Comment on above: Performed By: #### P TT, PT #### [facility] [address] [place] [address] Dr. Jackie Bhardwaj MCH (RBC) [Entitic mass] 30.7 pg Normal 26.7-34.0 [facility] Comment on above: Performed By: #### P TT, PT #### [facility] [address] [place] [address] Dr. Jackie Bhardwaj MCHC (RBC) [Mass/Vol] 32.7 g/dL Normal 29.9-35.2 [facility] Comment on above: Performed By: #### P TT, PT #### [facility] [address] [place] [address] Dr. Jackie Bhardwaj MCV (RBC) [Entitic vol] 93.8 fL Normal 81.0-99.0 [facility] Comment on above: Performed By: #### P TT, PT #### [facility] [address] [place] [address] Dr. Jackie Bhardwaj MONO # 0.7 103/ul Normal 0.3-0.8 [facility] Comment on above: Performed By: #### P TT, PT #### [facility] [address] [place] [address] Dr. Jackie Bhardwaj Monocytes/100 WBC (Bld) 6.3 % Normal 1.7-12.0 [facility] Comment on above: Performed By: #### P TT, PT #### [facility] [address] [place] [address] Dr. Jackie Bhardwaj NEUT # 6.2 103/ul Normal 1.4-6.5 [facility] Comment on above: Performed By: #### P TT, PT #### [facility] [address] [place] [address] Dr. Jackie Bhardwaj Neutrophils/100 WBC (Bld) 58.3 % Normal 43.0-75.0 [facility] Comment on above: Performed By: #### P TT, PT #### [facility] [address] [place] [address] Dr. Jackie Bhardwaj Platelet mean volume (Bld) [Entitic vol] 11.5 fL Normal 9.5-13.5 [facility] Comment on above: Performed By: #### P TT, PT #### [facility] [address] [place] [address] Dr. Jackie Bhardwaj PLT 167 103/ul Normal 150-450 [facility] Comment on above: Performed By: #### P TT, PT #### [facility] [address] [place] [address] Dr. Jackie Bhardwaj RBC 4.17 106/ul Critically low 4.20-5.40 [facility] Comment on above: Performed By: #### P TT, PT #### [facility] [address] [place] [address] Dr. Jackie Bhardwaj WBC 10.6 103/ul Normal 4.0-11.0 [facility] Comment on above: Performed By: #### P TT, PT #### [facility] [address] [place] [address] Dr. Jackie Bhardwaj IRONon 03-09-2022 Iron [Mass/Vol] 73.0 ug/dL Normal 50.0-170.0 [facility] Comment on above: Performed By: #### P TT, PT #### [facility] [address] [place] [address] Dr. Jackie Bhardwaj PREG HCG QUALon 02-01-2022 , QUAL Negative Normal NEGATIVE [facility] Comment on above: Performed By: #### P REG #### [facility] [address] [place] [address] Dr. Jackie Bhardwaj , QUAL Negative Normal NEGATIVE [facility] Comment on above: Result Comment: Prev iously reported as: [id number] On 02/01/2022 06:45 By DM9 Performed By: #### P TT, PT #### [facility] [address] [place] [address] Dr. Jackie Bhardwaj Covid-19 PCR (CVDTB)on 01-08 SARS-CoV-2 (COVID-19) RNA JOHN+probe Ql (Unsp spec) Not detected Normal NOT DETECTED [facility] Comment on above: Result Comment: This test is not yet approved or cleared by the [place] FDA. When there are no FDA-approved or cleared tests available, and other criteria are met, FDA can make tests available under an emergency access mechanism called an Emergency Use Authorization (EUA). The EUA for this test is supported by the [employer] of Health and Human Service's (HHS's) declaration [...] SARS-CoV-2. Performed By: #### C VDTB #### [facility] [address] [place] [address] Dr. Jackie Bhardwaj Covid-19 PCR ([facility])on 12-09 SARS-CoV-2 (COVID-19) RNA JOHN+probe Ql (Unsp spec) Not detected Normal NOT DETECTED [facility] Comment on above: Result Comment: This test is not yet approved or cleared by the [place] FDA. When there are no FDA-approved or cleared tests available, and other criteria are met, FDA can make tests available under an emergency access mechanism called an Emergency Use Authorization (EUA). The EUA for this test is supported by the [place] of Health and Human Service's (HHS's) declaration [...] Performed By: #### P TT, PT #### [facility] [address] [address] [address] Jackie Bhardwaj CBC AUTO DIFFon 12-29-2021 BASO # 0.1 103/ul Normal 0.0-0.1 [facility] [place] [facility] Comment on above: Performed By: #### C BC #### [facility] [address] [place] [address] Dr. Jackie Bhardwaj Basophils/100 WBC (Bld) 0.4 % Normal 0.2-2.0 [facility] [place] [facility] Comment on above: Performed By: #### C BC #### [facility] [address] [place] [address] Dr. Jackie Bhardwaj EO # 0.2 103/ul Normal 0.0-0.7 [facility] [place] [facility] Comment on above: Performed By: #### C BC #### [facility] [address] [place] [address] Dr. Jackie Bhardwaj Eosinophils/100 WBC (Bld) 1.6 % Normal 0.9-7.0 [facility] [place] [facility] Comment on above: Performed By: #### C BC #### [facility] [address] [place] [address] Dr. Jackie Bhardwaj Erythrocyte distribution width (RBC) [Ratio] 12.9 % Normal 11.0-15.0 [facility] [place] [facility] Comment on above: Performed By: #### C BC #### [facility] [address] [place] [address] Dr. Jackie Bhardwaj Hematocrit (Bld) [Volume fraction] 38.5 % Normal 36.0-48.0 [facility] [place] [facility] Comment on above: Performed By: #### C BC #### [facility] [address] [place] [address] Dr. Jackie Bhardwaj Hemoglobin (Bld) [Mass/Vol] 12.8 g/dL Normal 12.0-16.0 [facility] Comment on above: Performed By: #### C BC #### [facility] [address] [place] [address] Dr. Jackie Bhardwaj IG # 0.03 10e3/ul Normal 0.00-0.03 [facility] [place] [facility] Comment on above: Performed By: #### C BC #### [facility] [address] [place] [address] Dr. Jackie Bhardwaj IG % 0.3 % Normal 0.0-0.5 [facility] [place] [facility] Comment on above: Performed By: #### C BC #### [facility] [address] [place] [address] Dr. Jackie Bhardwaj LYMPH # 3.9 103/ul Critically high 1.2-3.8 [facility] Comment on above: Performed By: #### C BC #### [facility] [address] [place] [address] Dr. Jackie Bhardwaj Lymphocytes/100 WBC (Bld) 33.9 % Normal 20.5-60.0 [facility] Comment on above: Performed By: #### C BC #### [facility] [address] [place] [address] Dr. Jackie Bhardwaj MANUAL DIFF REQ NO Normal [facility] Comment on above: Performed By: #### C BC #### [facility] [address] [place] [address] Dr. Jackie Bhardwaj MCH (RBC) [Entitic mass] 31.4 pg Normal 26.7-34.0 [facility] [place] [facility] Comment on above: Performed By: #### C BC #### [facility] [address] [place] [address] Dr. Jackie Bhardwaj MCHC (RBC) [Mass/Vol] 33.2 g/dL Normal 29.9-35.2 [facility] Comment on above: Performed By: #### C BC #### [facility] [address] [place] [address] Dr. Jackie Bhardwaj MCV (RBC) [Entitic vol] 94.4 fL Normal 81.0-99.0 [facility] Comment on above: Performed By: #### C BC #### [facility] [address] [place] [address] Dr. Jackie Bhardwaj MONO # 0.7 103/ul Normal 0.3-0.8 [facility] Comment on above: Performed By: #### C BC #### [facility] [address] [address] [address] Jackie Bhardwaj Monocytes/100 WBC (Bld) 5.8 % Normal 1.7-12.0 [facility] [place] [facility] Comment on above: Performed By: #### C BC #### [facility] [address] [place] [address] Dr. Jackie Bhardwaj NEUT # 6.6 103/ul Critically high 1.4-6.5 [facility] Comment on above: Performed By: #### C BC #### [facility] [address] [place] [address] Dr. Jackie Bhardwaj Neutrophils/100 WBC (Bld) 58.0 % Normal 43.0-75.0 [facility] Comment on above: Performed By: #### C BC #### [facility] [address] [place] [address] Dr. Jackie Bhardwaj Platelet mean volume (Bld) [Entitic vol] 11.4 fL Normal 9.5-13.5 [facility] Comment on above: Performed By: #### C BC #### [facility] [address] [place] [address] Dr. Jackie Bhardwaj PLT 168 103/ul Normal 150-450 [facility] [place] [facility] Comment on above: Performed By: #### C BC #### [facility] [address] [place] [address] Dr. Jackie Bhardwaj RBC 4.08 106/ul Critically low 4.20-5.40 [facility] Comment on above: Performed By: #### C BC #### [facility] [address] [place] [address] Dr. Jackie Bhardwaj WBC 11.4 103/ul Critically high 4.0-11.0 [facility] Comment on above: Performed By: #### C BC #### [facility] [address] [place], [place] [id number] Dr. Jackie Bhardwaj IRONon 12-29-2021 Iron [Mass/Vol] 41.0 ug/dL Critically low 50.0-170.0 [facility] Comment on above: Performed By: #### P TT, PT #### [facility] [address] [place] [address] [id number] [address] Jackie Bhardwaj US VAC ASST BX BRST LT W CLI Jaya 10-02-2021 US VAC ASST BX BRST LT W CLIP Begin Addendum #1 COLLECTED DATE/TIME: 09/22/2021 09:43 EDT Final Diagnosis Report for [facility] [place], [place] ULTRASOUND GUIDED CORE BIOPSY, LEFT BREAST [...] after pathology results are available. Normal [facility] MAMMO POST BIOPSY LEFTon MAMMO POST BIOPSY LEFT Patient: LORA MARTINS Exam Date: 09/22/2021 : 1980 Gender:F Ordering : KP EPPERSON CNP Admission #: [id number] Family : Order #: [id number] CLICK HERE TO VIEW EXAM RADIOLOGY REPORT [...] Nielsen M.D. on 09/22/2021 at 10:14 Normal [facility] [place] [facility] Vital Signs Date Time Vital Sign Value Performing Clinician Sarthak umana 12-19-2023 23:00-0400 Diastolic blood pressure 91 mm[Hg] Reza Aureliano [facility] 12-19-2023 23:00-0400 Heart rate 63 /min Reza Aureliano [facility] 12-19-2023 23:00-0400 Hourly Rounding Reza Aureliano [facility] 12-19-2023 23:00-0400 Mean blood pressure 107 mm[Hg] Reza Aureliano [facility] 12-19-2023 23:00-0400 Promise to Return Reza Aureliano [facility] 12-19-2023 23:00-0400 SaO2% (BldA) [Mass fraction] 100 % Reza Aureliano [facility] 12-19-2023 23:00-0400 Systolic blood pressure 140 mm[Hg] Reza Aureliano [facility] 12-19-2023 22:00-0400 Diastolic blood pressure 87 mm[Hg] Reza Aureliano [facility] 12-19-2023 22:00-0400 Heart rate 64 /min Reza Aureliano [facility] 12-19-2023 22:00-0400 Hourly Rounding Reza Aureliano [facility] 12-19-2023 22:00-0400 Mean blood pressure 100 mm[Hg] Reza Aureliano [facility] 12-19-2023 22:00-0400 Promise to Return Reza Aureliano [facility] 12-19-2023 22:00-0400 Systolic blood pressure 127 mm[Hg] Reza Stallingse [facility] 12-19-2023 21:00-0400 Diastolic blood pressure 86 mm[Hg] Reza Stallingse [facility] 12-19-2023 21:00-0400 Heart rate 58 /min Reza Stallingse [facility] 12-19-2023 21:00-0400 Hourly Rounding Reza Bedoya [facility] 12-19-2023 21:00-0400 Mean blood pressure 104 mm[Hg] Reza Stallingse [facility] 12-19-2023 21:00-0400 Promise to Return Reza Bedoya [facility] 12-19-2023 21:00-0400 SaO2% (BldA) [Mass fraction] 99 % Reza Stallingse [facility] 12-19-2023 16:05-0400 Body temperature 98.24 [degF] Reza Bedoya [facility] 12-19-2023 16:05-0400 Heart rate 84 /min Reza Bedoya [facility] 12-19-2023 16:05-0400 Respiratory rate 18 /min Reza Bedoya [facility] Encounters Encounter Date Encounter Type Care Provider Facility Start: 04-19-2024 ambulatory Celeste Talal Sarmini Facility:[facility] Start: 02-07-2024 End: 02-07-2024 ambulatory Celeste Talal Sarmini Facility:[facility] Start: 02-07-2024 End: 02-07-2024 Patient encounter procedure Celeste Talal Sarmini [facility] Start: 01-19-2024 End: 01-19-2024 ambulatory Booker Shelley Facility:[facility] Start: 01-11-2024 End: 01-11-2024 ambulatory CYNDI RAZOMICKAngela Not Available Start: 01-10-2024 End: 01-10-2024 ambulatory Samuel Lacey [facility] Work Phone: Start: 01-10-2024 End: 01-10-2024 Departed Referred DO Samuel Lacey Work Phone: [facility] Start: 12-26-2023 End: 12-26-2023 ambulatory SAMUEL LACEY Not Available Start: 12-22-2023 End: 12-22-2023 ambulatory CYNDI RAZOMICKAngela Not Available Start: 12-20-2023 ambulatory Reza Bedoya [facility] Start: 12-19-2023 End: 12-19-2023 Emergency department patient visit Reza Bedoya [facility] Start: 12-19-2023 ambulatory Reza Bedoya Facility[facility] Start: 09-17-2022 End: 09-17-[address] WILDER OWENS . Facility:[facility] Start: 04-08-2022 End: 04-09-[address] MIKE JEAN Facility:[facility] Start: 03-22-2022 Encounter for preprocedural laboratory examination DR WILDER OWENS . [facility] Start: 03-22-2022 End: 03-23-2022 Evaluation and [...] Date Procedure Procedure Detail Performing Clinician Start: 01-10-2024 Colonoscopy Celeste Sarmini Start: 01-10-2024 Esophagogastroduodenoscopic electrohydraulic lithotripsy of bezoar in stomach Celeste Sarmini Comment on above: Ana Start: 03-22-2022 Resection of Bilateral Fallopian Tubes, Via Natural or Artificial Opening KP EPPERSON Start: 03-22-2022 Resection of Uterus, Via Natural or Artificial Opening KP EPPERSON Resection of Bilater al Fallopian Tubes, Via Natural or Artificial Opening Celeste Sarmini Resection of Uterus, Via Natural or Artificial Opening Celeste Sarmini Immunizations Immunization Date Immunization Notes Care Provider Fa cility 03-25-2021 SARS-CoV-2 (COVID-19 ) mRNA BNT-162b2 vax Celeste Sarmini [facility] 03-04-2021 SARS-CoV-2 (COVID-19 ) mRNA BNT-162b2 vax Celeste Sarmini [facility] 06-01-2013 influenza virus vaccine, unspecified formulation Booker Shelley [facility] 09-14-2012 tetanus toxoid, redu hollie diphtheria toxoid, and acellular pertussis vaccine, adsorbed Booker Shelley [facility] Payers Date Payer Category Payer Self-pay [id number] 1980 Unknown [id number] 2.16.84 0.1.006169.3.579.2.593 1980 Unknown [id number] 2.16.84 0.1.427035.3.579.2.593 1980 Unknown [id number] 2.16.84 0.1.956286.3.579.2.593 1978 Unknown [id number] 2.16.84 0.1.209456.3.579.2.593 1978 Unknown [id number] 2.16.84 0.1.479830.3.579.2.593 1978 Unknown [id number] .16.84 0.1.250277.3.579.2.593 1978 Unknown [id number] 2.16.84 0.1.329883.3.579.2.593 1980 Unknown [id number] 2.16.84 0.1.835293.3.579.2.593 1978 Unknown [id number] 2.16.84 0.1.472797.3.579.2.593 1978 Unknown [id number] 2.16.84 0.1.288727.3.579.2.593 1978 Unknown [id number] 2.16.84 0.1.347340.3.579.2.593 1978 Unknown [id number] 2.16.84 0.1.892623.3.579.2.593 1978 Unknown [id number] 2.16.84 0.1.310663.3.579.2.593 1978 Unknown [id number] 2.16.84 0.1.033297.3.579.2.593 1978 Unknown [id number] 2.16.84 0.1.872115.3.579.2.593 1978 Unknown [id number] 2.16.8 40.1.946576.3.579.2.72 1980 Unknown [id number] 2.16.8 40.1.684049.3.579.272 1980 Unknown [id number] 2.16.8 40.1.065301.3.579.2.72 1978 Unknown [id number] 2.16.84 0.1.062464.3.579.2.1259 1978 Unknown [id number] 2.16.84 0.1.031847.3.579.2.1259 1978 Unknown [id number] 2.16.84 0.1.767616.3.579.2.1259 1978 Unknown [id number] 2.16.8 40.1.466116.3.579.2.72 1978 Unknown [id number] 2.16.8 40.1.613549.3.579.272 1978 Unknown [id number] 2.16.8 40.1.583726.3.579.2.72 1978 Unknown [id number] 2.16.8 40.1.916756.3.579.2 1978 Unknown [id number] 2.16.8 40.1.207529.3.579.2.72 1978 Unknown [id number] 2.16.8 40.1.408947.3.579.2.727 1959 Unknown [id number] 1959 Unknown [id number] Unknown Lakshmi BC/BS [id number] Unknown [id number] 2.16.8 40.1.085128.3.579.2.531 Social History Date Type Detail Facility Tobacco smoking status [facility] Sex Assigned At Female [facility] Start: 1980 Sex Assigned At Female F [facility] Start: 01-19-2024 Tobacco smoking status Never s moked tobacco (finding) [facility] Tobacco smoking status Never [facility] Functional Status Date Assessment Result Facility 12-19-2023 Functional Status N/A [facility] Clinical Note 12-20-2023 Note Date & Type Note Facility 12-20-2023 Note Progress Note-Nurse Patient called requesting Zofran after yesterdays visit. Sent to pharmacy per [facility] Discharge instructions 12-20-2023 Note Date & Type Note Facility 12-20-2023 Hospital Discharg e instructions Patient Education 12/19/2023 23:16:40 Hepatomegaly, Agbo-ma-Fphs Hepatomegaly Hepatomegaly is when the liver is [...] asked to do the following: Medicines Take jwlo-eyi-ffzvopr and prescription medicines only as told by your doctor. Do not take any new medicine unless your doctor says it is okay. ?This includes vitamins, herbs, supplements, and usan-uxy-sgcmupw medicines. Some of these can hurt your [...] provider. Document Revised: 03/24/2022 Document Reviewed: 03/24/2022 [employer] Patient Education 2022 [email or web address]. 12/19/2023 23:16:40 Abdominal Pain, Adult Abdominal Pain, [...] Follow these instructions at home: Medicines Take ddtr-upb-ziezhnn and prescription medicines only as told by [...] Watch your condition for any changes. Take pqfx-ejb-wfnlilo and prescription medicines only as told by [...] provider. Document Revised: 06/13/2020 Document Reviewed: 09/03/2019 [employer] Patient Education 2022 [email or web address]. Follow Up Care 12/19/2023 16:03:37 With:Booker Shelley Address: [address], [address] [facility] [address] [place] [address]- [phone] Business (1) When:12/22/2023 With:CYNDI EPPERSON Address: [address] [place] [address] [phone] Business (1) When:Within 3 Day(s) [facility] Clinical Note 12-19-2023 Note Date [...] to do the following: Medicines ? Take eeho-mvq-glqjjet and prescription medicines only as told by your doctor. ? Do not take any new medicine unless your doctor says it is okay. ? This includes vitamins, herbs, supplements, and drbp-xpg-xtsijfm medicines. Some of these can hurt your [...] provider. Document Revised: 03/24/2022 Document Reviewed: 03/24/2022 [employer] Patient Education ? 2022 [employer] Abdominal Pain, Adult Pain in the [...] these instructions at home: Medicines ? Take funv-qgs-qreepsx and prescription medicines only as told by [...] tar. ? You (more content not included)... [facility] Evaluation + Plan note Note Date & Type Note Facility Evaluation + Plan note No data available for this section [facility] Evaluation + Plan note Laboratory Note Date & Type Note Facility Evaluation + Plan note Future Appointments Appointment Date:04/19/2024 02:45:00 PM Scheduled Provider:Booker Shelley MD Location:[facility] Appointment Type:[facility] Follow Up Future Scheduled TestsH. pylori Breath Test 01/19/24 [facility] Evaluation note Note Date & Type Note Facility Evaluation note No assessment information availa [facility] Work Phone: Hospital Discharge instructions Note Date & Type Note Facility Hospital Discharge instructions No data available for this section [facility] Progress note Note Date & Type Note Facility Progress note No data available for this section [facility] Summary Purpose Family History No [...] DATE CREATED AUTHOR AUTHOR'S ORGANIZ ATION 12/20/2023 [facility] DATE CREATED AUTHOR AUTHOR'S ORGANIZ ATION 12/21/2023 [facility] DATE CREATED AUTHOR AUTHOR'S ORGANIZ ATION 01/13/2024 [facility] EPIC DATE CREATED AUTHOR AUTHOR'S ORGANIZ ATION 01/21/[address] [facility] DATE CREATED AUTHOR AUTHOR'S ORGANIZ ATION 02/14/2024 [facility] DATE CREATED AUTHOR AUTHOR'S ORGANIZ ATION 02/16/2024 [facility] Patient Care team informatio n (unrecognized section [...] BE BASED ON THE PRIMARY CLINICAL RECORDS. [facility] [employer] [facility] provides no warranty or guarantee of the accuracy or completeness of information in this document.
--- NOTE | 2024-02-21 16:40 | ED_ITS ---
HPI HPI - General Adult General Chief complaint: Chest Pain Stated complaint: ALLERGIC REACTION or Chest Pain Time Seen by Provider: 02/21/24 16:21 Source: patient Mode of arrival: walk-in Limitations: no limitations History of Present Illness HPI narrative: This patient is a 43-year-old female who presents to the emergency department for multiple medical complaints today. She states for the last 4 to 5 days she has had pain in the center of her chest radiating up to the jaw. She states she feels foggy today, although she is able to communicate with no difficulty. She has been seen multiple times in this emergency department over the last several months for abdominal pain, she has had EGD/colonoscopy as well as right upper quadrant ultrasound, CT scan and HIDA scan. She states she is due to see the [facility] next week for a special ultrasound to look at blood flow . She states for the last several days she has had pressure and pain in the center of the chest that she feels in her throat as well, she states today when she was taking her pills, she felt like her medications got stuck. She is able to list all of her regular medications with no difficulty. She has no slurred speech at initial interview. She has had a previous hysterectomy with no concern for . Related Data Home Medications ?Medication ?Instructions ?Recorded ?Confirmed dicyclomine 20 mg tablet 20 mg PO QID PRN abdominal pain 12/30/23 02/21/24 omeprazole 20 mg capsule,delayed 20 mg PO DAILY 12/30/23 02/21/24 release ondansetron 4 mg disintegrating 4 mg PO Q8H PRN nausea and vomiting 12/30/23 02/21/24 tablet amitriptyline 25 mg tablet mg 02/21/24 Previous Rx's ?Medication ?Instructions ?Recorded sucralfate 1 gram tablet (Carafate) 1 g PO Q6H PRN abdominal pain #12 02/21/24 tabs Allergies Allergy/AdvReac Type Severity Reaction Status Date / Time amoxicillin Allergy Intermediate Hives Verified 02/09/24 02:31 penicillin G Allergy Unknown Rash Verified 02/09/24 02:31 Opioids - Morphine Analogues AdvReac Intermediate Vomiting Verified 02/09/24 02:31 Opioid HPI Opioid Management Most Recent Opioid Data: Last Pain Scale 3 01/10/24 07:35 01/10/24 Ur Phencyclidine Scrn Negative (NEGATIVE) 02/21/24 17:05 02/06 09/29 Review of Systems ROS Constitutional Denies: fever or chills Ears, nose, mouth, and throat Denies: throat pain Cardiovascular Reports: chest pain Respiratory Denies: shortness of breath or cough Gastrointestinal Denies: abdominal pain, nausea or vomiting Musculoskeletal Denies: back pain or neck pain Integumentary/Breast Denies: rash Hematologic/Lymphatic Denies: easy bruising or easy bleeding PFSH PFSH Medical History (Updated 02/21/24 @ 19:23 by BING Aguilar) Dysphagia ?R13.10 - Dysphagia, unspecified (ICD-10) GERD (gastroesophageal reflux disease) ?K21.9 - Gastro-esophageal reflux disease without esophagitis (ICD-10) Hepatomegaly ?R16.0 - Hepatomegaly, not elsewhere classified (ICD-10) Abdominal pain ?R10.9 - Unspecified abdominal pain (ICD-10) Surgical History (Updated 01/02/24 @ 11:22 by Mala Romero RN) History of salpingectomy ?Z90.79 - Acquired absence of other genital organ(s) (ICD-10) History of tonsillectomy ?Z90.89 - Acquired absence of other organs (ICD-10) H/O: hysterectomy ?Z90.710 - Acquired absence of both cervix and uterus (ICD-10) Family History (Updated 12/30/23 @ 11:10 by Tanya Bryant) Mother Family history of cancer Brother Family history of diabetes mellitus FH: mental illness Social History Within the past year, how often did you have a drink containing alcohol: monthly or less Smoking status: Former smoker Non-prescribed substance use: denies use Previous occupational history: [employer] Highest level of school completed/degree received: Associate degree: occupational, technical, vocational program Little interest or pleasure in doing things: not at all Feeling down, depressed, or hopeless: not at all Exam Narrative Exam Narrative: Gen.: Awake, alert, in no distress Head: Normocephalic, atraumatic ENT: Moist mucous membranes Respiratory: No respiratory distress, lungs clear bilaterally Cardio: Regular rate and rhythm Gastrointestinal: Abdomen is soft, nondistended and nontender to palpation Extremities: Moves extremities equally, no injuries noted Psych: Normal mood and affect Neuro: No focal neuro deficit; clear speech, no facial drooping or altered mental status noted, moves all extremities equally Skin: Warm, dry, intact Constitutional Vital Signs, click to edit/add: Last Vital Signs Temp 97.5 F L 02/21/24 16:23 Pulse 75 02/21/24 17:30 Resp 17 02/21/24 17:30 BP 152/77 H 02/21/24 17:30 Pulse Ox 97 02/21/24 17:30 O2 Del Method Room Air 02/21/24 16:23 Course Vital Signs Vital signs: Vital Signs Temperature 97.5 F L 02/21/24 16:23 Pulse Rate 77 02/21/24 16:23 Respiratory Rate 18 02/21/24 16:23 Blood Pressure 168/96 H 02/21/24 16:23 Pulse Oximetry 97 02/21/24 16:23 Oxygen Delivery Method Room Air 02/21/24 16:23 Temperature 97.5 F L 02/21/24 16:23 Pulse Rate 75 02/21/24 17:30 Respiratory Rate 17 02/21/24 17:30 Blood Pressure 152/77 H 02/21/24 17:30 Pulse Oximetry 97 02/21/24 17:30 Oxygen Delivery Method Room Air 02/21/24 16:23 Medical Decision Making MDM Narrative Medical decision making narrative: Patient treated with a small amount of IV fluid and GI cocktail which she tolerated well. No dysphagia or evidence of esophageal foreign body in the ER. Vital signs are stable, no EKG changes. D-dimer was elevated and the patient was sent for head CT due to her complaint of fogginess today, this is unremar kable. She had a CT angio of the chest which is also unremarkable. She is discharged home to follow-up with PCP and GI and return to the ER if symptoms change or worsen. Suspect esophagitis as the source of her chest pain and discomfort. She was also found to have a hiatal hernia which may be contributing factor. She is in no distress at time of discharge. SHARED APC VISIT, PHYSICIAN ATTESTATION: [id number] I performed a substantive part of the MDM during the patient?s E/M visit. I personally evaluated and examined the patient. I personally made or approved the documented management plan and acknowledge its risk of complications. Medical Records Medical records reviewed: Yes I reviewed the patient's medical records Lab Data Lab results reviewed: Yes I reviewed the patient's lab results Labs: Lab Results 02/21/24 02/21/24 Range/Units 16:35 17:05 WBC 10.6 (4.0-11.0) 10^3/uL RBC 4.44 (4.20-5.40) 10^6/uL Hgb 14.2 (12.0-16.0) g/dL Hct 41.0 (36.0-48.0) % MCV 92.3 (81.0-99.0) fL MCH 32.0 (26.7-34.0) pg MCHC 34.6 (29.9-35.2) g/dL RDW 12.4 (11.0-15.0) % Plt Count 166 (150-450) 10^3/uL MPV 11.0 (9.5-13.5) fL Neut % (Auto) 72.6 (43.0-75.0) % Lymph % (Auto) 21.1 (20.5-60.0) % [place] % (Auto) 5.1 (1.7-12.0) % Eos % (Auto) 0.5 L (0.9-7.0) % Baso % (Auto) 0.5 (0.2-2.0) % Neut # (Auto) 7.7 H (1.4-6.5) 10^3/uL Lymph # (Auto) 2.2 (1.2-3.8) 10^3/uL [place] # (Auto) 0.5 (0.3-0.8) 10^3/uL Eos # (Auto) 0.1 (0.0-0.7) 10^3/uL Baso # (Auto) 0.1 (0.0-0.1) 10^3/uL Abs Immat Gran (auto) 0.02 (0.00-0.03) 10^3/uL Imm/Tot Granulo (auto) 0.2 (0.0-0.5) % PT 10.8 (9.0-11.6) sec INR 1.02 D-Dimer 0.77 H* (<=0.59) mg/L FEU Sodium 142 (136-145) mmol/L Potassium 3.8 (3.5-5.1) mmol/L Chloride 107 (98-107) mmol/L Carbon Dioxide 26.1 (21.0-32.0) mmol/L Anion Gap 12.7 BUN 19.0 H (7.0-18.0) mg/dL Creatinine 0.95 (0.55-1.02) mg/dL Est GFR ( Amer) >60 (>=60 mL/min/1.73m^2) Est GFR (Non-Af Amer) >60 (>=60 mL/min/1.73m^2) BUN/Creatinine Ratio 20.0 Glucose 112 H (74-106) mg/dL Lactate 1.1 (0.4-2.0) mmol/L Calcium 9.2 (8.5-10.1) mg/dL Total Bilirubin 0.6 (0.2-1.0) mg/dL AST 11 L (15-37) U/L ALT 11 L (14-59) U/L Alkaline Phosphatase 40 L (46-116) U/L Troponin I High Sens <4.0 L (4.0-51.3) pg/mL Total Protein 7.2 (6.4-8.2) g/dL Albumin 4.1 (3.4-5.0) g/dL Globulin 3.1 g/dL Albumin/Globulin Ratio 1.3 Lipase 70.0 (16.0-77.0) U/L TSH 0.673 (0.358-3.740) uIU/mL Urine Color Yellow (YELLOW) Urine Clarity Clear (CLEAR) Urine pH 7.0 (5.0-9.0) Ur Specific [place] 1.025 (1.005-1.025) Urine Protein Negative (NEG/TRACE) mg/dL Urine Glucose (UA) Negative (NEGATIVE) mg/dL Urine Ketones Negative (NEGATIVE) mg/dL Urine Occult Blood Negative (NEGATIVE) Urine Nitrite Negative (NEGATIVE) Urine Bilirubin Negative (NEGATIVE) Urine Urobilinogen 1.0 (0.2-1.0) EU/dL Ur Leukocyte Esterase Negative (NEGATIVE) Urine Opiates Screen Negative (NEGATIVE) Ur Buprenorphine Scrn Negative (NEGATIVE) Ur Oxycodone Screen Negative (NEGATIVE) Urine Methadone Screen Negative (NEGATIVE) Ur Barbiturates Screen Negative (NEGATIVE) U Tricyclic Antidepress Negative (NEGATIVE) Ur Phencyclidine Scrn Negative (NEGATIVE) Ur Amphetamines Screen Negative (NEGATIVE) U Methamphetamines Scrn Negative (NEGATIVE) U Benzodiazepines Scrn Negative (NEGATIVE) Urine Cocaine Screen Negative (NEGATIVE) U Cannabinoids Screen Negative (NEGATIVE) Ethanol Quant <3 mg/dL Imaging Data CT scan - head: Attestation: I have reviewed the pertinent imaging results. Radiologist's impression: ITS Impressions Chest CTA 02/21/24 18:14 IMPRESSION: 1. No evidence for pulmonary embolism or other acute intrathoracic process. Electronically authenticated by: LESLY NUNEZ Date: 02/21/2024 19:[address] 02/21/24 18:14 IMPRESSION: No acute intracranial process. Electronically authenticated by: LESLY NUNEZ Date: 02/21/2024 19:04 ECG Data Attestation: I personally reviewed and interpreted this ECG as follows: (Normal sinus rhythm at a rate of 74, no acute ST elevation or ectopy. EKG reviewed by attending physician) Discharge Plan Discharge Chief Complaint: Chest Pain Clinical Impression: Atypical chest pain Patient Disposition: Home, Self-Care Time of Disposition Decision: 19:23 Condition: Good Prescriptions / Home Meds: New sucralfate [Carafate] 1 gram tablet 1 g PO Q6H PRN (Reason: abdominal pain) Qty: 12 0RF No Action amitriptyline 25 mg tablet dicyclomine 20 mg tablet 20 mg PO QID PRN (Reason: abdominal pain) omeprazole 20 mg capsule,delayed release(DR/EC) 20 mg PO DAILY ondansetron 4 mg tablet,disintegrating 4 mg PO Q8H PRN (Reason: nausea and vomiting) Print Language: Nepali Instructions: Noncardiac Chest Pain (ED) Referrals: Cyndi Epperson LEAD SETTER [Primary Care Provider] - 1 week
[2024-02-21 16:58] LABS: Basophils Absolute Auto 0.1 10^3/uL (0.0-0.1); Basophils Percent Auto 0.5 % (0.2-2.0); Eosinophils Absolute Auto 0.1 10^3/uL (0.0-0.7); Eosinophils Percent Auto 0.5 % (0.9-7.0); Hemoglobin 14.2 g/dL (12.0-16.0); Immature Granulocytes Abs Auto 0.02 10^3/uL (0.00-0.03); Immature Granulocytes Pct Auto 0.2 % (0.0-0.5); Lymphocytes Absolute Auto 2.2 10^3/uL (1.2-3.8); Lymphocytes Percent Auto 21.1 % (20.5-60.0); Mean Corpuscular HGB Conc 34.6 g/dL (29.9-35.2); Mean Corpuscular Volume 92.3 fL (81.0-99.0); Monocytes Absolute Auto 0.5 10^3/uL (0.3-0.8); Monocytes Percent Auto 5.1 % (1.7-12.0); Neutrophils Absolute Auto 7.7 10^3/uL (1.4-6.5); Neutrophils Percent Auto 72.6 % (43.0-75.0); Platelet Count 166 10^3/uL (150-450); Red Blood Count 4.44 10^6/uL (4.20-5.40); Red Cell Distribution Width 12.4 % (11.0-15.0); White Blood Count 10.6 10^3/uL (4.0-11.0)
[2024-02-21] MEDS: lidocaine HCL 15 ML, MAG HYDROX/ALUMINUM HYD/SIMETH 30 ML, HYOSCYAMINE SULFATE 0.25 MG PO (17:09)
[2024-02-21] MEDS: 0.9 % SODIUM CHLORIDE 500 ML IV (17:10)
[2024-02-21 17:13] LABS: Alanine Aminotransferase 11 U/L (14-59); Albumin Globulin Ratio 1.3; Albumin Level 4.1 g/dL (3.4-5.0); Alkaline Phosphatase 40 U/L (46-116); Anion Gap 12.7; Aspartate Amino Transferase 11 U/L (15-37); Bilirubin Total 0.6 mg/dL (0.2-1.0); Calcium 9.2 mg/dL (8.5-10.1); Carbon Dioxide 26.1 mmol/L (21.0-32.0); Chloride 107 mmol/L (98-107); Estimated GFR (African America >60 (>=60 mL/min/1.73m^2); Estimated GFR (Non-African Ame >60 (>=60 mL/min/1.73m^2); Globulin 3.1 g/dL; Glucose 112 mg/dL (74-106); Potassium 3.8 mmol/L (3.5-5.1); Sodium 142 mmol/L (136-145); Total Protein 7.2 g/dL (6.4-8.2)
[2024-02-21 17:15] LABS: Lactate/Lactic Acid 1.1 mmol/L (0.4-2.0)
[2024-02-21 17:22] LABS: Ethanol <3 mg/dL; Thyroid Stimulating Hormone 0.673 uIU/mL (0.358-3.740); Troponin I High Sensitivity <4.0 pg/mL (4.0-51.3)
[2024-02-21 17:38] LABS: Bilirubin Urine NEGATIVE (NEGATIVE); Blood Urine NEGATIVE (NEGATIVE); Clarity Urine CLEAR (CLEAR); Color Urine YELLOW (YELLOW); Glucose Urine UA NEGATIVE (NEGATIVE); Ketones Urine NEGATIVE (NEGATIVE); Leukocyte Esterase Urine NEGATIVE (NEGATIVE); Nitrite Urine NEGATIVE (NEGATIVE); Protein Urine NEGATIVE (NEG/TRACE); Specific Gravity Urine 1.025 (1.005-1.025)
[2024-02-21 17:39] LABS: Urine Microscopic Indicated NO
[2024-02-21 17:45] LABS: INR 1.02; Prothrombin Time 10.8 sec (9.0-11.6)
[2024-02-21 17:47] LABS: D Dimer 0.77 mg/L FEU (<=0.59)
[2024-02-21 17:49] LABS: Amphetamine Screen Urine NEGATIVE (NEGATIVE); Barbiturates Screen Urine NEGATIVE (NEGATIVE); Benzodiazepines Screen Urine NEGATIVE (NEGATIVE); Buprenorphine Screen Urine NEGATIVE (NEGATIVE); Cannabinoid Screen Urine NEGATIVE (NEGATIVE); Cocaine Screen Urine NEGATIVE (NEGATIVE); Methadone Screen Urine NEGATIVE (NEGATIVE); Methamphetamines Screen Urine NEGATIVE (NEGATIVE); Opiate Screen Urine NEGATIVE (NEGATIVE); Oxycodone Screen Urine NEGATIVE (NEGATIVE); Phencyclidine Screen Urine NEGATIVE (NEGATIVE); Tricyclic Antidepressant Urine NEGATIVE (NEGATIVE)
--- NOTE | 2024-02-21 18:14 | CT_ITS ---
[address] [address] Patient Name: LORA MARTINS MRN: [id number] date: 1980 Sex: F Assigned Patient Location: ER Current Patient Location: Accession/Order Number: [id number] Exam Date: 02/21/2024 17:59 Report Date: 02/21/2024 19:10 At the request of: CORRINA PRAKASH Procedure: CT angio chest EXAM: CT angio chest HISTORY: Pulmonary embolism COMPARISON: Chest radiograph 12/15/2023 TECHNIQUE: CT angiography of the pulmonary arteries following the administration of intravenous contrast. Coronal and sagittal MIP (maximum intensity projection) images were performed. 3D image processing was also performed. Dose reduction techniques were achieved by using automated exposure control and/or adjustment of mA and/or kV according to patient size and/or use of iterative reconstruction technique. FINDINGS: The study is technically adequate for the diagnosis of pulmonary embolism, with good contrast bolus to the pulmonary arteries. TUBES AND IMPLANTS: None. CHEST WALL AND LOWER NECK: Unremarkable. BONES: No suspicious lesions. UPPER ABDOMEN: Unremarkable. MEDIASTINUM AND GISELLE: Unremarkable. AORTA: No aneurysm or dissection. PULMONARY ARTERIES: No embolism HEART: Unremarkable CORONARY ARTERIES: No coronary artery calcifications. LUNG AND AIRWAYS: Unremarkable. PLEURA: Unremarkable. CT/CT angio chest IMPRESSION: 1. No evidence for pulmonary embolism or other acute intrathoracic process. Electronically authenticated by: LESLY NUNEZ Date: 02/21/2024 19:10
--- NOTE | 2024-02-21 18:14 | CT_ITS ---
The [address] [address] Patient Name: LORA MARTINS MRN: [id number] date: 1980 Sex: F Assigned Patient Location: ER Current Patient Location: ED.MAIN Accession/Order Number: [id number] Exam Date: 02/21/2024 17:59 Report Date: 02/21/2024 19:04 At the request of: CORRINA PRAKASH Procedure: CT head/brain wo con EXAM: CT head/brain wo con HISTORY: Confusion COMPARISON: None. TECHNIQUE: CT of the head without intravenous contrast. Dose reduction techniques were achieved by using automated exposure control and/or adjustment of mA and/or kV according to patient size and/or use of iterative reconstruction technique. FINDINGS: The brain parenchyma density is unremarkable. There is no acute intracranial hemorrhage, extra axial fluid collection, midline shift, or mass effect. There is no evidence to suggest acute infarction. The ventricles, sulci, and cisterns are normal in size and configuration, without evidence of hydrocephalus or herniation. The partially visualized paranasal sinuses and mastoid air cells are well pneumatized and clear. There are no suspicious osseous lytic or sclerotic lesions. There are no acute fractures. The extracranial soft tissues are unremarkable. CT/CT head/brain wo con IMPRESSION: No acute intracranial process. Electronically authenticated by: LESLY NUNEZ Date: 02/21/2024 19:04
== END 2024-02-21 20:19 | disposition home or self-care (01) ==
PROVIDERS: Physician Assistant; Emergency Provider Emergency Medicine; PCP Nurse Practitioner
DX: R07.89 Other chest pain (principal); Z87.891 Personal history of nicotine dependence
CPT/HCPCS: 36415; 70450; 71275; 80053; 80307; 80320; 81003; 83605; 83690; 84443; 84484; 85025; 85378; 85610; 93005; 99285; Q9967

== ENCOUNTER 2024-02-22 16:13 | Outpatient (OUT) | payer OTHER, SELFPAY ==
--- OUTSIDE RECORDS SUMMARY | 2024-02-22 16:22 | XMS_ITS | CCD ---
Author Organization [facility] Informat ion Partnership [facility] Care Team Providers Care Radio Engineering Teacher Name Role Phone AICHOLZ, RESIDENTIAL PEST CONTROL TECHNICIAN CYNDI Consulting Unavailable AICHHOLZ, RESIDENTIAL PEST CONTROL TECHNICIAN CYNDI Primary Care Unavailable AICHOLZ, RESIDENTIAL PEST CONTROL TECHNICIAN CYNDI Attending Unavailable AICHOLZ, RESIDENTIAL PEST CONTROL TECHNICIAN CYNDI Admitting Unavailable ROVERTO, DR BURAK Rogers Consulting Unavailable KARASIK ., DR HDZ Consulting Unavailabl e AICHHOLZ, RESIDENTIAL PEST CONTROL TECHNICIAN CYNDI Primary Care Unavailable KARASIK ., DR HDZ Attending Unavailabl e KARASIK ., DR HDZ Admitting Unavailabl e PIPPA LOVING Consulting Unavaila ble GEMBUSNUPUR Consulting Unavailable KARASIK ., DR HDZ Consulting Unavailabl e AICHHOLZ, [facility] CYNDI Primary Care Unavailable KARASIK ., DR HDZ Attending Unavailabl e KARASIK ., DR HDZ Admitting Unavailabl e PAO RAMON Consulting Unavailable AICHHOLZ, RESIDENTIAL PEST CONTROL TECHNICIAN CYNDI Primary Care Unavailable KARASIK ., DR HDZ Attending Unavailabl e KARASIK ., DR HDZ Admitting Unavailabl e AICHHOLZ, RESIDENTIAL PEST CONTROL TECHNICIAN CYNDI Primary Care Unavailable KARASIK ., DR HDZ Attending Unavailabl e KARASIK ., DR HDZ Admitting Unavailabl e AICHHOLZ, RESIDENTIAL PEST CONTROL TECHNICIAN CYNDI Primary Care Unavailable KARASIK ., DR HDZ Attending Unavailabl e KARASIK ., DR HDZ Admitting Unavailabl e KARASIK ., DR HDZ Consulting Unavailabl e AICHHOLZ, RESIDENTIAL PEST CONTROL TECHNICIAN CYNDI Primary Care Unavailable KARASIK ., DR HDZ Attending Unavailabl e KARASIK ., DR HDZ Admitting Unavailabl e KARASIK ., DR HDZ Consulting Unavailabl e KARESTEPHANIA SUN Admitting Unavailable AICHHOLZ, RESIDENTIAL PEST CONTROL TECHNICIAN CYNDI Primary Care Unavailable KARASIK ., DR HDZ Attending Unavailabl e TED, DR MIKE Flores Consulting Unavailable AICHHOLZ, RESIDENTIAL PEST CONTROL TECHNICIAN CYNDI Primary Care Unavailable AICHHOLZ, RESIDENTIAL PEST CONTROL TECHNICIAN CYNDI Attending Unavailable AICHHOLZ, RESIDENTIAL PEST CONTROL TECHNICIAN CYNDI Admitting Unavailable AICHHOLZ, RESIDENTIAL PEST CONTROL TECHNICIAN CYNDI Consulting Unavailable AICHHOLZ, RESIDENTIAL PEST CONTROL TECHNICIAN CNYDI Consulting Unavailable AICHHOLZ, RESIDENTIAL PEST CONTROL TECHNICIAN CYNDI Primary Care Unavailable AICHHOLZ, RESIDENTIAL PEST CONTROL TECHNICIAN CYNDI Attending Unavailable AICHHOLZ, RESIDENTIAL PEST CONTROL TECHNICIAN CYNDI Admitting Unavailable AICHHOLZ, RESIDENTIAL PEST CONTROL TECHNICIAN CYNDI Consulting Unavailable AICHHOLZ, RESIDENTIAL PEST CONTROL TECHNICIAN CYNDI Primary Care Unavailable AICHHOLZ, RESIDENTIAL PEST CONTROL TECHNICIAN CYNDI Attending Unavailable AICHHOLZ, RESIDENTIAL PEST CONTROL TECHNICIAN CYNDI Admitting Unavailable AICHHOLZ, RESIDENTIAL PEST CONTROL TECHNICIAN CYNDI Consulting Unavailable AICHHOLZ, RESIDENTIAL PEST CONTROL TECHNICIAN CYNDI Primary Care Unavailable AICHHOLZ, RESIDENTIAL PEST CONTROL TECHNICIAN CYNDI Attending Unavailable AICHHOLZ, RESIDENTIAL PEST CONTROL TECHNICIAN CYNDI Admitting Unavailable KARASIK ., DR HDZ Consulting Unavailabl e AICHHOLZ, RESIDENTIAL PEST CONTROL TECHNICIAN CYNDI Primary Care Unavailable KARASIK ., DR HDZ Attending Unavailabl e KARASIK ., DR HDZ Admitting Unavailabl e KARASIK ., DR HDZ Consulting Unavailabl e AICHHOLZ, RESIDENTIAL PEST CONTROL TECHNICIAN CYNDI Primary Care Unavailable KARASIK ., DR HDZ Attending Unavailabl e KARASIK ., DR HDZ Admitting Unavailabl e HEATHER SWEENEY Consulting Unavailable KARASIK ., DR HDZ Procedure Practitioner Pina vailable ADINA YIP Consulting Unavailable AICHHOLZ, RESIDENTIAL PEST CONTROL TECHNICIAN CYNDI Primary Care Unavailable KARASIK ., DR HDZ Attending Unavailabl e KARASIK ., DR HDZ Admitting Unavailabl e AICHHOLZ, CYNDI J Primary Care Physician [phone] Reza Bedoya Attending Unavailable DO Samuel Lacey [...] source) Penicillins Drug allergy (disorder) 5 The Repository (1 source) Misc-Other; Translations: [Misc-Other] Propensity to adverse reactions (disorder) 2 The Repository (7 sources) Amoxicillin; Translations: [amoxicillin] Drug Allergy Unkempt [facility] Medications Current Medications Medication Drug Class(es) Dates [...] day(s), # 30 cap(s), Refills(s) 0, Pharmacy: [facility]/pharmacy #[id number], 170.2, cm, 12/19/23 16:15:00 [...] Nausea/Vomiting, # 60 tab(s), Refills(s) 3, Pharmacy: [facility]/pharmacy #[id number], 170, cm, 01/19/24 12:39:00 [...] pain, # 12 tab(s), Refills(s) 0, Pharmacy: [facility]/pharmacy #[id number], 170.2, cm, 12/19/23 16:15:00 EDT, Height/Length Dosing, 57.8, kg, 12/19/23 16:15:00 EDT, Weight Dosing Start Date: 12/19/23 Status: Ordered Zofran ODT 4 mg Tab-Dis (1 source) Start: 12-20-2023 take 1 tablet by mouth three times daily Zofran ODT 4 mg Tab-Dis 4 mg = 1 tab(s), Oral, TID, # 15 tab(s), Refills(s) 0, Pharmacy: [facility]/pharmacy #[id number], 170.2, cm, 12/19/23 16:15:00 [...] 3.0 hr (Upper Limit 30%) 5.3 Normal [facility] Gastroenterology Office/Clin ic Noteon 01-19-2024 Gastroenterology Office/Clinic Note Gastroenterology Office/Clinic Note Chief Complaint Abdominal pain HPI Staff Patient is a(n) 43 year old female who presents today for a f/u from [facility] ER 12/19/23 for acute abdominal pain and hepatomegaly. Fhx fatty liver disease. Denies previous EGD/Colonoscopy. Denies Fhx colon cancer. Denies blood thinners/GLP-1 agonists. Patient states that last Tuesday she had colonoscopy and EGD at . Abdominal pain: When did you first have this pain: 2-3 months Quality (sharp, dull):constant pressure type pain and when eating she will get left sided pain that is sharp. Constant or comes or go: constant location and radiation: upper abdomen and left side. Relation to food: Food does not improve/worsen symptoms. Has lack of appetite. Worse with food. EGD/Colon 01/10/24 @ [place]: Normal colon CT 12/15/23 @ [place]: IMPRESSION: 1. Heterogeneous enlarged liver. Correlate with labs. 2. No acute bowel or inflammatory findings. Normal appendix. 3. Simple 1 cm right renal cyst. RUQ US 12/16/23: IMPRESSION: 1. No acute or specific findings to account for patient's symptoms. 2. No suspicious abnormality of the liver. CT 12/19/23: IMPRESSION: NO ACUTE INTRA-ABDOMINAL PROCESS IDENTIFIED. HIDA 01/04 @ [place]: IMPRESSION: 1. Normal nuclear medicine HIDA scan. [...] 91.3 fL (12/19/23) Chloride: 103 mmol/L (12/19/23) [place] Absolute: 0.6 E9/L (12/19/23) CO2: 29 mmol/L (12/19/23) [place] Auto: 4.8 % (12/19/23) Creatinine: 0.9 mg/dL [...] Nausea/Vomiting, # 60 tab(s), Refills(s) 3, Pharmacy: [facility]/pharmacy #[id number], 170, cm, 01/19/24 12:39:00 [...] tab(s), Oral, (more content not included)... Normal [facility] Comment on above: Result Comment: Elec tronically Signed By: Daphney MCKNILEY, Booker Jenkins\.br\Date and Time Signed: 01/19/24 13:00 EDT Deejay 01-10-2024 L Specimen: [id number] Received: 01/12/24-134 Status: SOUT Req Num: [id number] Spec Type: Surgical Subm Dr: Samuel Lacey, Tissues: A STOMACH FOR HP (PREPYLORIC BX R/O H PYLORI) Procedures: HE/2, Gross/Micro L4, H PYLORI, RECUT Age/ Patient Sex Location Account Attending Physician ArtemioLora 43/F [place] [id number] Samuel Lacey DO SPEC NUM: [id number] RECD: 01/12/24 STATUS: KATHERINE MARKS NUM: [id number] [place]: 01/10/[address] [facility] [address]: Samuel Lacey DO ENTERED: 01/12/24-[address]: [place],Lab SPEC TYPE: Surgical DEPT: ARUNA LAWLER ENTERED BY: [id number] RECV BY: [id number] ORDERED: HE/2, Gross/Micro L4, H PYLORI, RECUT ORDERED: HE/2, Gross/Micro L4, H PYLORI, RECUT Supplemental Report Addendum 1 Entered: 02/02/24 Supplemental for findings of H. pylori immunostain as performed per clinician's specimen requisition sheet: -H. pylori immunostain with appropriate control is also negative for identified Helicobacter organism or infection CPT: 47316 Addendum Signed (signature on file) Karen Bhardwaj MD 02/02/24926 Pathological Diagnosis Prepyloric gastric biopsy: -Antral mucosa with mild reactive gastropathy, including minor associated congestion without any other specific changes (no erosion, intestinal metaplasia, or any significant stromal chronic inflammation) Specimen: [id number] Received: 01/12/24 Status: WHITGigi Marks Num: [id number] Spec Type: Surgical Subm Dr: Samuel Lacey DO Tissues: A STOMACH FOR HP (PREPYLORIC BX R/O H PYLORI) Procedures: HE/2, Gross/Micro L4, H PYLORI, RECUT Patient: Lora Martins [id number] (Continued) Specimen: [id number] Received: 01/12/24 (Continued) Pathological Diagnosis (Continued) Signed (signature on file) Karen Bhardwaj MD 02/02/24 0851 Specimen: [id number] Received: 01/12/24 Status: KATHERINE Marks Num: [id number] Spec Type: Surgical Subm Dr: Samuel Lacey DO Tissues: A STOMACH FOR HP (PREPYLORIC BX R/O H PYLORI) Procedures: HE/2, Gross/Micro L4, H PYLORI, RECUT Patient: Lora Martins [id number] (Continued) Specimen: [id number] Received: 01/12/24 (Continued) Pathological Diagnosis (Continued) -Also [...] performed supporting the above interpretation CPT Codes 63786 Specimen: [id number] Received: 01/12/24 Status: KATHERINE Marks Num: [id number] Spec Type: Surgical Subm Dr: Samuel Lacey DO Tissues: A STOMACH FOR HP (PREPYLORIC BX R/O H PYLORI) Procedures: HE/2, Gross/Micro L4, H PYLORI, RECUT Patient: Lora Martins [id number] (Continued) Signed (signature on file) Karen Bhardwaj MD 02/02/24 0851 Normal [facility] CT Abdomen/Pelvis w/ Contras [...] Contrast amount in ml's: 100 Normal [facility] ED Note-Physicianon 12-20-19 ED Note-Physician ED Note-Physician Basic Information Time Seen: Emily Troy PA-C. 12/19/2023 17:17 Chief Complaint was at [place] for diaphram pain. had ct's done. still [...] The patient states she was seen at last Tuesday. She states they did a [...] in length (more content not included)... Normal [facility] Comment on above: Result Comment: Elec tronically Signed By: Emily Troy PA-C.br\Date and Time Signed: 12/19/23 23:05 EDT\.br\Electronically Co-Signed By: Emily Troy PA-C\.br\Date and Time Co-Signed: 12/19/23 23:06 EDT\.br\Electronically Co-Signed By: Emily Troy PA-C\.br\Date and Time Co-Signed: 12/19/23 23:22 EDT\.br\Electronically Co-Signed By: Reza Bedoya DO\.br\Date and Time Co-Signed: 12/20/23 07:02 EDT BMPon 12-19-2023 Anion gap [Moles/Vol] 10 mmol/L Normal 6-16 [facility] Comment on above: Performed By: #### 2 [id number] #### [facility] [address] [place] [address] Calcium [Mass/Vol] 9.7 mg/dL Normal 8.9-11.1 [facility] Comment on above: Performed By: #### 2 [id number] #### [facility] [address] [place] [address] Chloride [Moles/Vol] 103 mmol/L Normal 101-111 [facility] Comment on above: Performed By: #### 2 [id number] #### [facility] [address] [place] [address] CO2 [Moles/Vol] 29 mmol/L Normal 21-31 [facility] Comment on above: Performed By: #### 2 [id number] #### [facility] [address] [place] [address] Creatinine [Mass/Vol] 0.9 mg/dL Normal 0.5-1.3 [facility] Comment on above: Performed By: #### 2 [id number] #### [facility] [address] [place] [address] Glucose [Mass/Vol] 92 mg/dL Normal 55-199 [facility] Comment on above: Performed By: #### 2 [id number] #### [facility] [address] [place] [address] Potassium [Moles/Vol] 4.3 mmol/L Normal 3.5-5.3 [facility] Comment on above: Performed By: #### 2 [id number] #### [facility] [address] [place] [address] Sodium [Moles/Vol] 138 mmol/L Normal 135-145 [facility] Comment on above: Performed By: #### 2 385431 #### [facility] [address] [place] [address] Urea nitrogen [Mass/Vol] 17 mg/dL Normal 5-21 [facility] Comment on above: Performed By: #### 2 341104 #### [facility] [address] [place] [address] Urea nitrogen/Creatinine [Mass ratio] 19 No Units Normal 10-20 [facility] Comment on above: Performed By: #### 2 773074 #### [facility] [address] [place] [address] CBC w/ Auto Diffon 4 Basophils/100 WBC (Bld) 0.5 % Normal 0.0-2.0 [facility] Comment on above: Performed By: #### 2 [id number] #### [facility] [address] [place] [address] Basophils/Leukocytes Auto (Bld) [Pure # fraction] 0.1 E9/L Normal 0.0-0.2 [facility] Comment on above: Performed By: #### 2 172902 #### [facility] [address] [place] [address] Eosinophils (Bld) [#/Vol] 0.1 E9/L Normal 0.0-0.5 [facility] Comment on above: Performed By: #### 2 852528 #### [facility] [address] [place] [address] Eosinophils/100 WBC (Bld) 0.6 % Normal 0.0-8.0 [facility] Comment on above: Performed By: #### 2 369562 #### [facility] [address] [place] [address] Erythrocyte distribution width (RBC) [Ratio] 13.1 % Normal 10.9-14.2 [facility] Comment on above: Performed By: #### 2 [id number] #### [facility] [address] [place] [address] Hematocrit (Bld) [Volume fraction] 42.6 % Normal 34.0-46.0 [facility] Comment on above: Performed By: #### 2 592352 #### [facility] [address] [place] [address] Hemoglobin (Bld) [Mass/Vol] 14.7 g/dL Normal 12.0-16.0 [facility] Comment on above: Performed By: #### 2 672677 #### [facility] [address] [place] [address] Lymphocytes (Bld) [#/Vol] 2.2 E9/L Normal 1.0-4.0 [facility] Comment on above: Performed By: #### 2 665858 #### [facility] [address] [place] [address] Lymphocytes/100 WBC (Bld) 18.7 % Normal 14.0-50.0 [facility] Comment on above: Performed By: #### 2 155269 #### [facility] [address] [place] [address] MCH (RBC) [Entitic mass] 31.5 pg Normal 27.0-34.0 [facility] Comment on above: Performed By: #### 2 550446 #### [facility] [address] [place] [address] MCHC (RBC) [Mass/Vol] 34.5 g/dL Normal 31.4-36.0 [facility] Comment on above: Performed By: #### 2 009959 #### [facility] [address] [place] [address] MCV (RBC) [Entitic vol] 91.3 fL Normal 80.0-100.0 [facility] Comment on above: Performed By: #### 2 405773 #### [facility] [address] [place] [address] Monocytes (Bld) [#/Vol] 0.6 E9/L Normal 0.2-1.0 [facility] Comment on above: Performed By: #### 2 078620 #### [facility] [address] [place] [address] Neutrophils (Bld) [#/Vol] 8.7 E9/L High 2.0-7.5 [facility] Comment on above: Performed By: #### 2 005038 #### [facility] [address] [place] [address] Neutrophils/100 WBC (Bld) 75.4 % High 36.0-75.0 [facility] Comment on above: Performed By: #### 2 213405 #### [facility] [address] [place] [address] Platelet mean volume (Bld) [Entitic vol] 8.9 fL Normal 6.4-10.8 [facility] Comment on above: Performed By: #### 2 421501 #### [facility] [address] [place] [address] Platelets (Bld) [#/Vol] 173.0 E9/L Normal 150.0-500.0 [facility] Comment on above: Performed By: #### 2 156784 #### [facility] [address] [place] [address] RBC (Bld) [#/Vol] 4.7 E12/L Normal 4.3-5.9 [facility] Comment on above: Performed By: #### 2 340599 #### [facility] [address] [place] [address] WBC corrected for nucl RBC Auto (Bld) [#/Vol] 11.5 E9/L High 4.0-11.0 [facility] Comment on above: Performed By: #### 2 [id number] #### [facility] [address] [place] [address] CHEMISTRYOrdered By: SYSTEM SYSTEM on 12-19-2023 Albumin [...] Sensitivity Troponin I Instructions For Use, Carlos [place], December 2017) Urea nitrogen [Mass/Vol] 17 mg/dL Normal 5 - 21 mg/dL [facility] Urea nitrogen/Creatinine [Mass ratio] 19 mg/mg Normal 10 - 20 [facility] COAGULATIONOrdered By: Courtney Sanches on 12-19-2023 aPTT Coag (PPP) [Time] 29.0 s Normal 25.1 - 36.5 second(s) [facility] Auto Coag Comment on above: Interpretive Data: [...] the same coagulation reagent and instrumentation as [facility]. Currently there are no coagulation studies available worldwide for children to 14 days, and no normal ranges. Heparin therapeutic range (represented by Anti-Factor Xa activity of 0.2 - 0.4 U/mL) corresponds to PTT of 56.6 - 109.0 sec. INR Coag (PPP) [Relative time] 1.05 {INR} Invalid Interpretation Code [facility] Auto Coag Comment on above: Interpretive Data: I NR results are specifically intended to assess patients stabilized on long-term Anticoagulation therapy suggested INR s Less Intensive Anticoagulation 2.0 3.0 Conventional Range 3.0 4.5 PT Coag (PPP) [Time] 11.8 s Normal 9.4 - 1 2.5 second(s) [facility] Auto Coag Comment on above: Interpretive Data: [...] the same coagulation reagent and instrumentation as [facility]. Currently there are no coagulation studies available worldwide for children to 14 days, and no normal ranges. ED Clinical Summaryon 2023 ED Clinical Summary ED Clinical Summary [place] [address] ED Clinical Summary Person Information Name: LORA MARTINS/[facility] Age: 43 Years : 1980 Sex: Female Language: [place] PCP: CYNDI EPPERSON CNP Marital Status: Single [...] 12/19/2023 23:16:39 12/19/2023 23:16:39 12/19/2023 23:16:39 ADDRESS: [address] [place] [id number] [facility] DOC NOTES: MEDICAL INFORMATION: Prescriptions Given: New Medications [id number], [address], [place] [id number], [phone] dicyclomine (Bentyl 10 mg Cap) 1 Capsules By Mouth every 6 hours as needed Spasm for 7 Days. Refills: 0. tramadol (traMADOL 50 mg Tab) 0.5-1 tab(s) By Mouth every 6 hours as needed as needed for pain. Refills: 0. PATIENT EDUCATION INFORMATION: Instructions: Hepatomegaly, Cnvj-io-Ftxk; Abdominal Pain, Adult Follow up: With: Address: When: Celeste Daphney [address], [address], [address] [phone] Business (1) In 3 days 12/22/2023 With: Address: When: CYNDI EPPERSON [address] [place], [place] [phone] Business (1) In 3 days DIAGNOSIS: 1:Acute abdominal pain; 2:Hepatomegaly Normal [facility] ED Patient Summaryon 024 ED Patient Summary ED Patient Summary [address] [address] Patient Discharge Instructions Person Information Name: LORA MARTINS Age: 43 Years Arrival Date: 12/19/2023 15:58:56 Discharge Diagnosis: 1:Acute abdominal pain; 2:Hepatomegaly Primary Care Physician: CYNDI EPPERSON CNP Provider Information Primary Provider: Reza Bedoya DO Advanced Instructor Psychiatric Aide:None The exam and treatment you received in the Emergency Department were for an urgent problem and are not intended as complete care. It is important that you follow up with a doctor, nurse practitioner, or physician?s miner assistant for ongoing care. If your symptoms [...] Follow-up Instructions: With: Address: When: Booker [address], [address], [employer] [address] [phone] Business (1) In 3 days 12/22/2023 With: Address: When: CYNDI EPPERSON [address] [facility] [place], [place] [phone] [employer] (1) In 3 days In the event that this physician does not participate in your insurance network, please consult with your insurance company to find a nearby participating provider. Patient Education Materials: Hepatomegaly, Cdkq-dm-Utxj; Abdominal Pain, Adult A MESSAGE TO ALL PATIENTS REGARDING OPIOIDS PRESCRIPTION OPIOIDS: WHAT YOU NEED TO KNOW Prescription opioids can be used to help relieve hgwtiunj-uw-rircnn pain and are often prescribed following a [...] opioids abuse (more content not included)... Normal [facility] HEMATOLOGYOrdered By: SYSTEM SYSTEM on 12-19-2023 [...] 12-19-2023 Albumin [Mass/Vol] 4.3 g/dL Normal 3.3-5.0 [facility] Comment on above: Performed By: #### 2 [id number] #### [facility] [address] [place] [address] Albumin/Globulin (S) [Mass conc ratio] 2.0 Normal 1.1-2.2 [facility] Comment on above: Performed By: #### 2 [id number] #### [facility] [address] [place] [address] ALP [Catalytic activity/Vol] 28 Int._Unit/L Normal 21-98 [facility] Comment on above: Performed By: #### 2 [id number] #### [facility] [address] [place] [address] ALT No additional P-5'-P [Catalytic activity/Vol] 14 Int._Unit/L Normal 6-46 [facility] Comment on above: Performed By: #### 2 625107 #### [facility] [address] [place] [address] AST [Catalytic activity/Vol] 14 Int._Unit/L Normal 5-43 [facility] Comment on above: Performed By: #### 2 041210 #### [facility] [address] [place] [address] Bilirubin [Mass/Vol] 1.0 mg/dL Normal 0.0-1.1 [facility] Comment on above: Performed By: #### 2 430603 #### [facility] [address] [place] [address] Bilirubin.direct [Mass/Vol] 0.1 mg/dL Normal 0.0-0.4 [facility] Comment on above: Performed By: #### 2 438202 #### [facility] [address] [place] [address] Bilirubin.indirect [Mass or moles/Vol] 0.9 mg/dL Normal 0.1-0.9 [facility] Comment on above: Performed By: #### 2 286978 #### [facility] [address] [place] [address] Globulin (S) [Mass/Vol] 2.1 g/dL Normal 1.4-4.0 [facility] Comment on above: Performed By: #### 2 156681 #### [facility] [address] [place] [address] Protein [Mass/Vol] 6.4 g/dL Normal 6.0-7.8 [facility] Comment on above: Performed By: #### 2 375149 #### [facility] [address] [place] [address] Lipase Levelon 12-19-2023 Lipase [Catalytic activity/Vol] 18 U/L Normal 13-58 [facility] Comment on above: Performed By: #### 2 455608 #### [facility] [address] [place] [address] PT & PTTon 12-19-2023 aPTT Coag (PPP) [Time] 29.0 second(s) Normal 25.1-36.5 [facility] Comment on above: Result Comment: Para [...] the same coagulation reagent and instrumentation as [facility]. Currently there are no coagulation studies available worldwide for children to 14 days, and no normal ranges. Heparin therapeutic range (represented by Anti-Factor Xa activity of 0.2 - 0.4 U/mL) corresponds to PTT of 56.6 - 109.0 sec. Performed By: #### 1 [id number] #### [facility] [address] [place] [address] INR Coag (PPP) [Relative time] 1.05 {INR} Invalid Interpretation Code [facility] Comment on above: Result Comment: INR results are specifically intended to assess patients stabilized on long-term Anticoagulation therapy suggested INR?s ?Less Intensive Anticoagulation? 2.0 ? 3.0 Conventional Range 3.0 ? 4.5 Performed By: #### 1 [id number] #### [facility] [address] [place] [address] PT Coag (PPP) [Time] 11.8 second(s) Normal 9.4-12.5 [facility] Comment on above: Result Comment: 15 [...] the same coagulation reagent and instrumentation as [facility]. Currently there are no coagulation studies available worldwide for children to 14 days, and no normal ranges. Performed By: #### 1 [id number] #### [facility] [address] [place] [address] Troponin 0 Hr.on 12-19-2023 Troponin HS 2.70 pg/mL Low 10.10-27.10 [facility] Comment on above: Result Comment: The 95% CI (Confidence Interval) PPV (Positive Predictive Value) for myocardial infarction in females is 38 pg/mL, in males 51 pg/mL. The results should be used in conjunction with clinical conditions of myocardial infarction. (Access High Sensitivity Troponin I Instructions For Use, [employer], December 2017) Performed By: #### 1 [id number] #### [facility] [address] [place] [address] Troponin 1 Hr.on 12-19-2023 Troponin HS 2.40 pg/mL Low 10.10-27.10 [facility] Comment on above: Order Comment: 1809 Result Comment: The 95% CI (Confidence Interval) PPV (Positive Predictive Value) for myocardial infarction in females is 38 pg/mL, in males 51 pg/mL. The results should be used in conjunction with clinical conditions of myocardial infarction. (Access High Sensitivity Troponin I Instructions For Use, [employer], December 2017) Performed By: #### 1 [id number] #### [facility] [address] [place] [address] eGFRon 12-19-2023 eGFR 80 mL/min/1.73 m2 Normal >=59 [facility] Comment on above: Order Comment: Order added by Discern Expert. Performed By: #### 1 [id number] #### [facility] [address] [place] [address] MG MAMM DIAGNOSTIC 3D [place] CA Don 04-08-2022 MG MAMM DIAGNOSTIC 3D [place] CAD Patient: LORA MARTINS Exam Date: 04/08/2022 : 1980 Gender:F Ordering : KP CYNDI EPPERSON [facility] Admission #: [id number] Family : Order #: [id number] CLICK HERE TO VIEW EXAM RADIOLOGY REPORT [...] pancreatic cancer at age 55. LOCATION: The BREAST COMPOSITION: Heterogeneously dense,which may obscure small [...] MD on 04/08/2022 at 15:21 Normal The US BREAST [place] LIMITEDon 12-0 US BREAST [place] LIMITED Patient: LORA MARTINS Exam Date: 04/08/2022 : 1980 Gender:F Ordering : KP EPPERSON [employer] Admission #: [id number] Family : Order #: [id number] CLICK HERE TO VIEW EXAM RADIOLOGY REPORT [...] pancreatic cancer at age 55. LOCATION: The BREAST COMPOSITION: Heterogeneously dense,which may obscure small [...] MD on 04/08/2022 at 15:21 Normal The BUNon 03-23-2022 Urea nitrogen [Mass/Vol] 18.0 mg/dL Normal 7.0-18.0 The Comment on above: Performed By: #### B UN, CREA #### Laboratory [address] [address] [address] Jackie Bhardwaj CBC AUTO DIFFon 03-23-2022 BASO # 0.0 103/ul Normal 0.0-0.1 [facility] Comment on above: Performed By: #### P TT, PT #### Laboratory [address] [place] [address] Dr. Jackie Bhardwaj Basophils/100 WBC (Bld) 0.2 % Normal 0.2-2.0 [facility] Comment on above: Performed By: #### P TT, PT #### Laboratory [address] [place] [address] Dr. Jackie Bhardwaj EO # 0.1 103/ul Normal 0.0-0.7 The Comment on above: Performed By: #### P TT, PT #### Laboratory [address] [place] [address] Dr. Jackie Bhardwaj Eosinophils/100 WBC (Bld) 0.4 % Critically low 0.9-7.0 [facility] Comment on above: Performed By: #### P TT, PT #### Laboratory [address] [place] [address] Dr. Jackie Bhardwaj Erythrocyte distribution width (RBC) [Ratio] 12.8 % Normal 11.0-15.0 [facility] Comment on above: Performed By: #### P TT, PT #### Laboratory [address] [place] [address] Dr. Jackie Bhardwaj Hematocrit (Bld) [Volume fraction] 30.7 % Critically low 36.0-48.0 [facility] Comment on above: Performed By: #### P TT, PT #### Laboratory [address] [place] [address] Dr. Jackie Bhardwaj Hemoglobin (Bld) [Mass/Vol] 10.3 g/dL Critically low 12.0-16.0 [facility] Comment on above: Performed By: #### P TT, PT #### Laboratory [address] [place] [address] Dr. Jackie Bhardwaj IG # 0.04 10e3/ul Critically high 0.00-0.03 [facility] Comment on above: Performed By: #### P TT, PT #### Laboratory [address] [place] [address] Dr. Jackie Bhardwaj IG % 0.3 % Normal 0.0-0.5 The Comment on above: Performed By: #### P TT, PT #### Laboratory [address] [address] [address] Jackie Bhardwaj LYMPH # 2.7 103/ul Normal 1.2-3.8 The Comment on above: Performed By: #### P TT, PT #### Laboratory [address] [address] [address] Jackie Bhardwaj Lymphocytes/100 WBC (Bld) 21.0 % Normal 20.5-60.0 [facility] Comment on above: Performed By: #### P TT, PT #### Laboratory [address] [address] [address] Jackie Bhardwaj MANUAL DIFF REQ NO Normal [facility] Comment on above: Performed By: #### P TT, PT #### Laboratory [address] [place] [address] Dr. Jackie Bhardwaj MCH (RBC) [Entitic mass] 30.7 pg Normal 26.7-34.0 [facility] Comment on above: Performed By: #### P TT, PT #### Laboratory [address] [address] [address] Jackie Bhardwaj MCHC (RBC) [Mass/Vol] 33.6 g/dL Normal 29.9-35.2 The Comment on above: Performed By: #### P TT, PT #### Laboratory [address] [address] [address] Jackie Bhardwaj MCV (RBC) [Entitic vol] 91.6 fL Normal 81.0-99.0 [facility] Comment on above: Performed By: #### P TT, PT #### Laboratory [address] [address] [address] Jackie Bhardwaj MONO # 0.8 103/ul Normal 0.3-0.8 [facility] Comment on above: Performed By: #### P TT, PT #### Laboratory [address] [address] [address] Jackie Bhardwaj Monocytes/100 WBC (Bld) 6.2 % Normal 1.7-12.0 [facility] Comment on above: Performed By: #### P TT, PT #### Laboratory [address] [address] [address] Jackie Bhardwaj NEUT # 9.2 103/ul Critically high 1.4-6.5 [facility] Comment on above: Performed By: #### P TT, PT #### Laboratory [address] [address] [address] Jackie Bhardwaj Neutrophils/100 WBC (Bld) 71.9 % Normal 43.0-75.0 [facility] Comment on above: Performed By: #### P TT, PT #### Laboratory [address] [place] [address] Dr. Jackie Bhardwaj Platelet mean volume (Bld) [Entitic vol] 11.2 fL Normal 9.5-13.5 [facility] Comment on above: Performed By: #### P TT, PT #### Laboratory [address] [place] [address] Dr. Jackie Bhardwaj PLT 135 103/ul Critically low 150-450 [facility] Comment on above: Performed By: #### P TT, PT #### Laboratory [address] [place] [address] Dr. Jackie Bhardwaj RBC 3.35 106/ul Critically low 4.20-5.40 [facility] Comment on above: Performed By: #### P TT, PT #### Laboratory [address] [place] [address] Dr. Jackie Bhardwaj WBC 12.8 103/ul Critically high 4.0-11.0 [facility] Comment on above: Performed By: #### P TT, PT #### Laboratory [address] [place] [address] Dr. Jackie Bhardwaj CREATININEon 03-23-2022 Creatinine [Mass/Vol] 0.72 mg/dL Normal 0.55-1.02 [facility] Comment on above: Performed By: #### B UN, CREA #### Laboratory [address] [place] [address] Dr. Jackie Bhardwaj EGFR-AF CROATIAN >60 Normal >=60 [facility] Comment on above: Performed By: #### B UN, CREA #### Laboratory [address] [address] [address] Jackie Bhardwaj EGFR-NON AF CROATIAN >60 Normal >=60 [facility] Comment on above: Performed By: #### B UN, CREA #### Laboratory [address] [address] [address] Jackie Bhardwaj ANTIBODY ID PANELon 03-22-20 22 ANTIBODY ID PANEL Antibody ID Anti-D Blood Bank Notes testing performed at [facility] reference lab Normal The Comment on above: Performed By: #### P TT, PT #### Laboratory [address] [place] [address] Dr. Jackie Bhardwaj URon 03-22-2022 , QUAL Negative Normal NEGATIVE [facility] Comment on above: Performed By: #### P TT, PT #### Laboratory [address] [address] [address] Jackie Bhardw[facility]09 SARS-CoV-2 (COVID-19) RNA JOHN+probe Ql (Unsp spec) Not detected Normal NOT DETECTED The Comment on above: Result Comment: This test is not yet approved or cleared by the [place] FDA. When there are no FDA-approved or cleared tests available, and other criteria are met, FDA can make tests available under an emergency access mechanism called an Emergency Use Authorization (EUA). The EUA for this test is supported by the Destination Coordinator of Health and Human Service's (HHS's) declaration [...] SARS-CoV-2. Performed By: #### C VDTBH #### Laboratory [address] [address] [address] Jackie Bhardwaj TYPE AND SCREENon 03-18-2022 TYPE AND SCREEN Negative Normal [facility] Comment on above: Performed By: #### P TT, PT #### Laboratory [address] [place] [address] Dr. Jackie Bhardwaj LIVER PROFILEon 03-10-2022 Albumin [Mass/Vol] 4.1 g/dL Normal 3.4-5.[address] [facility] Comment on above: Performed By: #### L IVER, BMP #### Laboratory [address] [place] [address] Dr. Jackie Bhardwaj Albumin/Globulin [Mass ratio] 1.6 {ratio} Normal [facility] Comment on above: Performed By: #### L IVER, BMP #### Laboratory [address] [place] [address] Dr. Jackie Bhardwaj ALP [Catalytic activity/Vol] 41 U/L Critically low 46-116 [facility] Comment on above: Performed By: #### L IVER, BMP #### Laboratory [address] [place] [address] Dr. Jakcie Bhardwaj ALT [Catalytic activity/Vol] 16 U/L Normal 14-59 [facility] Comment on above: Performed By: #### L IVER, BMP #### Laboratory [address] [place] [address] Dr. Jackie Bhardwaj AST [Catalytic activity/Vol] 14 U/L Critically low 15-37 [facility] Comment on above: Performed By: #### L IVER, BMP #### Laboratory [address] [place] [address] Dr. Jackie Bhardwaj BILI, CONJUGATED 0.1 mg/dL Normal 0.0-0.2 [facility] Comment on above: Performed By: #### L IVER, BMP #### Laboratory [address] [place] [address] Dr. Jackie Bhardwaj Bilirubin [Mass/Vol] 0.3 mg/dL Normal 0.2-1.0 [facility] Comment on above: Performed By: #### L IVER, BMP #### Laboratory [address] [place] [address] Dr. Jackie Bhardwaj Globulin (S) [Mass/Vol] 2.5 g/dL Normal [facility] Comment on above: Performed By: #### L IVER, BMP #### Laboratory [address] [place] [address] Dr. Jackie Bhardwaj Protein [Mass/Vol] 6.6 g/dL Normal 6.4-8.[address] [facility] Comment on above: Performed By: #### L IVER, BMP #### Laboratory [address] [place] [address] Dr. Jackie Bhardwaj PROF CHEM 8 (BAS METB)on Anion gap [Moles/Vol] 11.6 mmol/L Normal [facility] Comment on above: Performed By: #### L IVER, BMP #### Laboratory [address] [place] [address] Dr. Jackie Bhardwaj Calcium [Mass/Vol] 8.8 mg/dL Normal 8.5-10.1 [facility] Comment on above: Performed By: #### L IVER, BMP #### Laboratory [address] [place] [address] Dr. Jackie Bhardwaj Chloride [Moles/Vol] 102 mmol/L Normal 98-107 [facility] Comment on above: Performed By: #### L IVER, BMP #### Laboratory [address] [place] [address] Dr. Jackie Bhardwaj CO2 [Moles/Vol] 28.9 mmol/L Normal 21.0-32.0 [facility] Comment on above: Performed By: #### L IVER, BMP #### Laboratory [address] [place] [address] Dr. Jackie Bhardwaj Creatinine [Mass/Vol] 0.78 mg/dL Normal 0.55-1.02 [facility] Comment on above: Performed By: #### L IVER, BMP #### Laboratory [address] [address] [address] Jackie Bhardwaj EGFR-AF CROATIAN >60 Normal >=60 [facility] Comment on above: Performed By: #### Robin MANSFIELD, BMP #### Laboratory [address] [address] [address] Jackie Bhardwaj EGFR-NON AF CROATIAN >60 Normal >=60 The Comment on above: Performed By: #### Robin MANSFIELD, BMP #### Laboratory [address] [address] [address] Jackie Bhardwaj Glucose [Mass/Vol] 81 mg/dL Normal 74-106 [facility] Comment on above: Performed By: #### L SHYLA, BMP #### Laboratory [address] [address] [address] Jackie Bhardwaj Potassium [Moles/Vol] 3.5 mmol/L Normal 3.5-5.1 [facility] Comment on above: Performed By: #### Robin MANSFIELD, BMP #### Laboratory [address] [place] [address] Dr. Jackie Bhardwaj Sodium [Moles/Vol] 139 mmol/L Normal 136-145 [facility] Comment on above: Performed By: #### Robin MANSFIELD, BMP #### Laboratory [address] [place] [address] Dr. Jackie Bhardwaj Urea nitrogen [Mass/Vol] 21.0 mg/dL Critically high 7.0-18.0 [facility] Comment on above: Performed By: #### Robin MANSFIELD, BMP #### Laboratory [address] [place] [address] Dr. Jackie Bhardwaj Urea nitrogen/Creatinine [Mass ratio] 26.9 mg/mg Normal [facility] Comment on above: Performed By: #### Robin MANSFIELD, BMP #### Laboratory [address] [address] [address] Jackie Bhardwaj PROTIMEon 03-10-2022 INR Coag (PPP) [Relative time] 0.98 {INR} Normal The Comment on above: Performed By: #### P TT, PT #### Laboratory [address] [place] [address] Dr. Jackie Bhardwaj INR GUIDELINES SEE BELOW Normal [facility] Comment on above: Result Comment: BILLY RED INR: 2.0 - 3.0 CONDITIONS NOT LISTED BELOW 2.5 - 3.5 FOR PROSTHETIC HEART VALVE REPLACEMENT 2.5 - 3.5 RECURRENT THROMBOSIS Performed By: #### P TT, PT #### Laboratory [address] [place] [address] Dr. Jackie Bhardwaj PT Coag (PPP) [Time] 10.6 s Normal 9.0-11.6 [facility] Comment on above: Performed By: #### P TT, PT #### Laboratory [address] [place] [address] Dr. Jackie Bhardwaj PTTon 03-10-2022 aPTT Coag (Bld) [Time] 26.3 s Normal 22.3-36.2 [facility] Comment on above: Performed By: #### P TT, PT #### Laboratory [address] [place] [address] Dr. Jackie Bhardwaj CBC AUTO DIFFon 03-09-2022 BASO # 0.1 103/ul Normal 0.0-0.1 [facility] Comment on above: Performed By: #### P TT, PT #### Laboratory [address] [place] [address] Dr. Jackie Bhardwaj Basophils/100 WBC (Bld) 0.6 % Normal 0.2-2.0 [facility] Comment on above: Performed By: #### P TT, PT #### Laboratory [address] [place] [address] Dr. Jackie Bhardwaj EO # 0.2 103/ul Normal 0.0-0.7 [facility] Comment on above: Performed By: #### P TT, PT #### Laboratory [address] [place] [address] Dr. Jackie Bhardwaj Eosinophils/100 WBC (Bld) 1.8 % Normal 0.9-7.0 [facility] Comment on above: Performed By: #### P TT, PT #### Laboratory [address] [place] [address] Dr. Jackie Bhardwaj Erythrocyte distribution width (RBC) [Ratio] 12.7 % Normal 11.0-15.0 [facility] Comment on above: Performed By: #### P TT, PT #### Laboratory [address] [place] [address] Dr. Jackie Bhardwaj Hematocrit (Bld) [Volume fraction] 39.1 % Normal 36.0-48.0 [facility] Comment on above: Performed By: #### P TT, PT #### Laboratory [address] [place] [address] Dr. Jackie Bhardwaj Hemoglobin (Bld) [Mass/Vol] 12.8 g/dL Normal 12.0-16.0 [facility] Comment on above: Performed By: #### P TT, PT #### Laboratory [address] [place] [address] Dr. Jackie Bhardwaj IG # 0.03 10e3/ul Normal 0.00-0.03 [facility] Comment on above: Performed By: #### P TT, PT #### Laboratory [address] [place] [address] Dr. Jackie Bhardwaj IG % 0.3 % Normal 0.0-0.5 [facility] Comment on above: Performed By: #### P TT, PT #### Laboratory [address] [place] [address] Dr. Jackie Bhardwaj LYMPH # 3.5 103/ul Normal 1.2-3.8 The Comment on above: Performed By: #### P TT, PT #### Laboratory [address] [place] [address] Dr. Jackie Bhardwaj Lymphocytes/100 WBC (Bld) 32.7 % Normal 20.5-60.0 The Comment on above: Performed By: #### P TT, PT #### Laboratory [address] [place] [address] Dr. Jackie Bhardwaj MANUAL DIFF REQ NO Normal [facility] Comment on above: Performed By: #### P TT, PT #### Laboratory [address] [place] [address] Dr. Jackie Bhardwaj MCH (RBC) [Entitic mass] 30.7 pg Normal 26.7-34.0 The Comment on above: Performed By: #### P TT, PT #### Laboratory [address] [place] [address] Dr. Jackie Bhardwaj MCHC (RBC) [Mass/Vol] 32.7 g/dL Normal 29.9-35.2 The Comment on above: Performed By: #### P TT, PT #### Laboratory [address] [place] [address] Dr. Jackie Bhardwaj MCV (RBC) [Entitic vol] 93.8 fL Normal 81.0-99.0 The Comment on above: Performed By: #### P TT, PT #### Laboratory [address] [place] [address] Dr. Jackie Bhardwaj MONO # 0.7 103/ul Normal 0.3-0.8 The Comment on above: Performed By: #### P TT, PT #### Laboratory [address] [place] [address] Dr. Jackie Bhardwaj Monocytes/100 WBC (Bld) 6.3 % Normal 1.7-12.0 The Comment on above: Performed By: #### P TT, PT #### Laboratory [address] [place] [address] Dr. Jackie Bhardwaj NEUT # 6.2 103/ul Normal 1.4-6.5 The Comment on above: Performed By: #### P TT, PT #### Laboratory [address] [place] [address] Dr. Jackie Bhardwaj Neutrophils/100 WBC (Bld) 58.3 % Normal 43.0-75.0 The Comment on above: Performed By: #### P TT, PT #### Laboratory [address] [place] [address] Dr. Jackie Bhardwaj Platelet mean volume (Bld) [Entitic vol] 11.5 fL Normal 9.5-13.5 The Comment on above: Performed By: #### P TT, PT #### Laboratory [address] [place] [address] Dr. Jackie Bhardwaj PLT 167 103/ul Normal 150-450 The Comment on above: Performed By: #### P TT, PT #### Laboratory [address] [place] [address] Dr. Jackie Bhardwaj RBC 4.17 106/ul Critically low 4.20-5.40 [facility] Comment on above: Performed By: #### P TT, PT #### Laboratory [address] [place] [address] Dr. Jackie Bhardwaj WBC 10.6 103/ul Normal 4.0-11.0 The Comment on above: Performed By: #### P TT, PT #### Laboratory [address] [place] [address] Dr. Jackie Bhardwaj IRONon 03-09-2022 Iron [Mass/Vol] 73.0 ug/dL Normal 50.0-170.0 [facility] Comment on above: Performed By: #### P TT, PT #### Laboratory [address] [place] [address] Dr. Jackie Bhardwaj PREG HCG QUALon 02-01-2022 , QUAL Negative Normal NEGATIVE [facility] Comment on above: Performed By: #### P REG #### Laboratory [address] [place] [address] Dr. Jackie Bhardwaj , QUAL Negative Normal NEGATIVE [facility] Comment on above: Result Comment: Prev iously reported as: [id number] On 02/01/2022 06:45 By DM9 Performed By: #### P TT, PT #### Laboratory [address] [place] [address] Dr. Jackie Bhardwaj Covid-19 PCR (CVDTB)on 01-08 SARS-CoV-2 (COVID-19) RNA JOHN+probe Ql (Unsp spec) Not detected Normal NOT DETECTED The Comment on above: Result Comment: This test is not yet approved or cleared by the [place] FDA. When there are no FDA-approved or cleared tests available, and other criteria are met, FDA can make tests available under an emergency access mechanism called an Emergency Use Authorization (EUA). The EUA for this test is supported by the Destination Coordinator of Health and Human Service's (HHS's) declaration [...] SARS-CoV-2. Performed By: #### C VDTB #### Laboratory [address] [place] [address] Dr. Jackie Bhardwaj Covid-19 PCR ([facility])on 12-09 SARS-CoV-2 (COVID-19) RNA JOHN+probe Ql (Unsp spec) Not detected Normal NOT DETECTED The Comment on above: Result Comment: This test is not yet approved or cleared by the [place] FDA. When there are no FDA-approved or cleared tests available, and other criteria are met, FDA can make tests available under an emergency access mechanism called an Emergency Use Authorization (EUA). The EUA for this test is supported by the [place] of Health and Human Service's (HHS's) declaration [...] Performed By: #### P TT, PT #### Laboratory [address] [address] [address] Jackie Bhardwaj CBC AUTO DIFFon 12-29-2021 BASO # 0.1 103/ul Normal 0.0-0.1 [facility] Comment on above: Performed By: #### C BC #### Laboratory [address] [place] [address] Dr. Jackie Bhardwaj Basophils/100 WBC (Bld) 0.4 % Normal 0.2-2.0 [facility] Comment on above: Performed By: #### C BC #### Laboratory [address] [place] [address] Dr. Jackie Bhardwaj EO # 0.2 103/ul Normal 0.0-0.7 [facility] Comment on above: Performed By: #### C BC #### Laboratory [address] [place] [address] Dr. Jackie Bhardwaj Eosinophils/100 WBC (Bld) 1.6 % Normal 0.9-7.0 [facility] Comment on above: Performed By: #### C BC #### Laboratory [address] [place] [address] Dr. Jackie Bhardwaj Erythrocyte distribution width (RBC) [Ratio] 12.9 % Normal 11.0-15.0 [facility] Comment on above: Performed By: #### C BC #### Laboratory [address] [place] [address] Dr. Jackie Bhardwaj Hematocrit (Bld) [Volume fraction] 38.5 % Normal 36.0-48.0 [facility] Comment on above: Performed By: #### C BC #### Laboratory [address] [place] [address] Dr. Jackie Bhardwaj Hemoglobin (Bld) [Mass/Vol] 12.8 g/dL Normal 12.0-16.0 The Comment on above: Performed By: #### C BC #### Laboratory [address] [place] [address] Dr. Jackie Bhardwaj IG # 0.03 10e3/ul Normal 0.00-0.03 [facility] Comment on above: Performed By: #### C BC #### Laboratory [address] [place] [address] Dr. Jackie Bhardwaj IG % 0.3 % Normal 0.0-0.5 [facility] Comment on above: Performed By: #### C BC #### Laboratory [address] [place] [address] Dr. Jackie Bhardwaj LYMPH # 3.9 103/ul Critically high 1.2-3.8 [facility] Comment on above: Performed By: #### C BC #### Laboratory [address] [place] [address] Dr. Jackie Bhardwaj Lymphocytes/100 WBC (Bld) 33.9 % Normal 20.5-60.0 The Comment on above: Performed By: #### C BC #### Laboratory [address] [place] [address] Dr. Jackie Bhardwaj MANUAL DIFF REQ NO Normal [facility] Comment on above: Performed By: #### C BC #### Laboratory [address] [place] [address] Dr. Jackie Bhardwaj MCH (RBC) [Entitic mass] 31.4 pg Normal 26.7-34.0 [facility] Comment on above: Performed By: #### C BC #### Laboratory [address] [place] [address] Dr. Jackie Bhardwaj MCHC (RBC) [Mass/Vol] 33.2 g/dL Normal 29.9-35.2 The Comment on above: Performed By: #### C BC #### Laboratory [address] [place] [address] Dr. Jackie Bhardwaj MCV (RBC) [Entitic vol] 94.4 fL Normal 81.0-99.0 The Comment on above: Performed By: #### C BC #### Laboratory [address] [place] [address] Dr. Jackie Bhardwaj MONO # 0.7 103/ul Normal 0.3-0.8 The Comment on above: Performed By: #### C BC #### Laboratory [address] [address] [address] Jackie Bhardwaj Monocytes/100 WBC (Bld) 5.8 % Normal 1.7-12.0 [facility] Comment on above: Performed By: #### C BC #### Laboratory [address] [place] [address] Dr. Jackie Bhardwaj NEUT # 6.6 103/ul Critically high 1.4-6.5 [facility] Comment on above: Performed By: #### C BC #### Laboratory [address] [place] [address] Dr. Jackie Bhardwaj Neutrophils/100 WBC (Bld) 58.0 % Normal 43.0-75.0 The Comment on above: Performed By: #### C BC #### Laboratory [address] [place] [address] Dr. Jackie Bhardwaj Platelet mean volume (Bld) [Entitic vol] 11.4 fL Normal 9.5-13.5 The Comment on above: Performed By: #### C BC #### Laboratory [address] [place] [address] Dr. Jackie Bhardwaj PLT 168 103/ul Normal 150-450 [facility] Comment on above: Performed By: #### C BC #### Laboratory [address] [place] [address] Dr. Jackie Bhardwaj RBC 4.08 106/ul Critically low 4.20-5.40 [facility] Comment on above: Performed By: #### C BC #### Laboratory [address] [place] [address] Dr. Jackie Bhardwaj WBC 11.4 103/ul Critically high 4.0-11.0 [facility] Comment on above: Performed By: #### C BC #### Laboratory [address] [place], [place] [id number] Dr. Jackie Bhardwaj IRONon 12-29-2021 Iron [Mass/Vol] 41.0 ug/dL Critically low 50.0-170.0 [facility] Comment on above: Performed By: #### P TT, PT #### Laboratory [address] [place] [id number] [address] Jackie Bhardwaj US VAC ASST BX BRST LT W CLI Jaya 10-02-2021 US VAC ASST BX BRST LT W CLIP Begin Addendum #1 COLLECTED DATE/TIME: 09/22/2021 09:43 EDT Final Diagnosis Report for [facility] [place], [place] ULTRASOUND GUIDED CORE BIOPSY, LEFT BREAST [...] after pathology results are available. Normal The MAMMO POST BIOPSY LEFTon MAMMO POST BIOPSY LEFT Patient: LORA MARTINS Exam Date: 09/22/2021 : 1980 Gender:F Ordering : KP EPPERSON CNP Admission #: [id number] Family : Order #: [id number] CLICK HERE TO VIEW EXAM RADIOLOGY REPORT [...] Nielsen M.D. on 09/22/2021 at 10:14 Normal [facility] Vital Signs Date Time Vital Sign Value Performing Clinician Sarthak umana 12-19-2023 23:00-0400 Diastolic blood pressure 91 mm[Hg] Reza Aureliano [facility] 12-19-2023 23:00-0400 Heart rate 63 /min Reza Aureliano [facility] 12-19-2023 23:00-0400 Hourly Rounding Reza Aureliano [facility] 12-19-2023 23:00-0400 Mean blood pressure 107 mm[Hg] Reza Aureliano [facility] 12-19-2023 23:00-0400 Promise to Return Reza Aureliano [facility] 12-19-2023 23:00-0400 SaO2% (BldA) [Mass fraction] 100 % Reza Aureliano [facility] 12-19-2023 23:00-0400 Systolic blood pressure 140 mm[Hg] Reza Aureliano [facility] 12-19-2023 22:00-0400 Diastolic blood pressure 87 mm[Hg] Reza Aureliano [facility] 12-19-2023 22:00-0400 Heart rate 64 /min Reza Aureliano [facility] 12-19-2023 22:00-0400 Hourly Rounding Reza Aureliano [facility] 12-19-2023 22:00-0400 Mean blood pressure 100 mm[Hg] Reza Aureliano [facility] 12-19-2023 22:00-0400 Promise to Return Reza Aureliano [facility] 12-19-2023 22:00-0400 Systolic blood pressure 127 mm[Hg] Reza Stallingse [facility] 12-19-2023 21:00-0400 Diastolic blood pressure 86 mm[Hg] Reza Stallingse [facility] 12-19-2023 21:00-0400 Heart rate 58 /min Reza Stallingse [facility] 12-19-2023 21:00-0400 Hourly Rounding Reza Bedoya [facility] 12-19-2023 21:00-0400 Mean blood pressure 104 mm[Hg] Reza Stallingse [facility] 12-19-2023 21:00-0400 Promise to Return Reza Bedoya [facility] 12-19-2023 21:00-0400 SaO2% (BldA) [Mass fraction] 99 % Reza Stallingse [facility] 12-19-2023 16:05-0400 Body temperature 98.24 [degF] Reza Bedoya [facility] 12-19-2023 16:05-0400 Heart rate 84 /min Reza Bedoya [facility] 12-19-2023 16:05-0400 Respiratory rate 18 /min Reza Bedoya [facility] Encounters Encounter Date Encounter Type Care Provider Facility Start: 04-19-2024 ambulatory Celeste Talal Sarmini Facility:[facility] Start: 02-07-2024 End: 02-07-2024 ambulatory Celeste Talal Sarmini Facility:[facility] Start: 02-07-2024 End: 02-07-2024 Patient encounter procedure Celeste Talal Sarmini [facility] Start: 01-19-2024 End: 01-19-2024 ambulatory Booker Shelley Facility:[facility] Start: 01-11-2024 End: 01-11-2024 ambulatory CYNDI RAZOMICKAngela Not Available Start: 01-10-2024 End: 01-10-2024 ambulatory Samuel Lacey [facility] Work Phone: Start: 01-10-2024 End: 01-10-2024 Departed Referred DO Samuel Lacye Work Phone: [facility] Start: 12-26-2023 End: 12-26-2023 ambulatory SAMUEL LACEY Not Available Start: 12-22-2023 End: 12-22-2023 ambulatory CYNDI RAZOMICKAngela Not Available Start: 12-20-2023 ambulatory Reza Bedoya Facility: [facility] Start: 12-19-2023 End: 12-19-2023 Emergency department patient visit Reza Bedoya [facility] Start: 12-19-2023 ambulatory Reza Bedoya Facility:[facility] Start: 09-17-2022 End: 09-17-[address] WILDER OWENS . Facility:[facility] Start: 04-08-2022 End: 04-09-[address] MIKE JEAN Facility:[facility] Start: 03-22-2022 Encounter for preprocedural laboratory examination DR WILDER OWENS . The Start: 03-22-2022 End: 03-23-2022 Evaluation and management [...] (COVID-19 ) mRNA BNT-162b2 vax Celeste Sarmini [facility] 03-04-2021 SARS-CoV-2 (COVID-19 ) mRNA BNT-162b2 vax Celeste Sarmini [facility] 06-01-2013 influenza virus vaccine, unspecified formulation Booker Shelley [facility] 09-14-2012 tetanus toxoid, redu hollie diphtheria toxoid, and acellular pertussis vaccine, adsorbed Booker Shelley [facility] Payers Date Payer Category Payer Self-pay [id number] 1980 Unknown [id number] 2.16.84 0.1.356962.3.579.2.593 1980 Unknown [id number] 2.16.84 0.1.573488.3.579.2.593 1980 Unknown [id number] 2.16.84 0.1.428059.3.579.2.593 1980 Unknown [id number] 2.16.84 0.1.744819.3.579.2.593 1978 Unknown [id number] 2.16.84 0.1.991980.3.579.2.593 1978 Unknown [id number] .16.84 0.1.851884.3.579.2.593 1978 Unknown [id number] 2.16.84 0.1.833512.3.579.2.593 1978 Unknown [id number] 2.16.84 0.1.291474.3.579.2.593 1978 Unknown [id number] 2.16.84 0.1.145991.3.579.2.593 1978 Unknown [id number] 2.16.84 0.1.565801.3.579.2.593 1978 Unknown [id number] 2.16.84 0.1.892198.3.579.2.593 1978 Unknown [id number] 2.16.84 0.1.889646.3.579.2.593 1978 Unknown [id number] 2.16.84 0.1.741149.3.579.2.593 1978 Unknown [id number] 2.16.84 0.1.511433.3.579.2.593 1978 Unknown [id number] 2.16.84 0.1.700406.3.579.2.593 1978 Unknown [id number] 2.16.8 40.1.077449.3.579.2.72 1978 Unknown [id number] 2.16.8 40.1.672243.3.579.272 1978 Unknown [id number] 2.16.8 40.1.798326.3.579.2.72 1978 Unknown [id number] 2.16.84 0.1.627665.3.579.2.1259 1978 Unknown [id number] 2.16.84 0.1.222357.3.579.2.1259 1978 Unknown [id number] 2.16.84 0.1.138500.3.579.2.1259 1978 Unknown [id number] 2.16.8 40.1.683396.3.579.2.72 1978 Unknown [id number] 2.16.8 40.1.967812.3.579.272 1978 Unknown [id number] 2.16.8 40.1.615886.3.579.2.72 1978 Unknown [id number] 2.16.8 40.1.364907.3.579.2 1978 Unknown [id number] 2.16.8 40.1.535949.3.579.2.72 1978 Unknown [id number] 2.16.8 40.1.666344.3.579.2.727 1959 Unknown [id number] 1959 Unknown [id number] Unknown Lakshmi BC/BS [id number] Unknown [id number] 2.16.8 40.1.704295.3.579.2.531 Social History Date Type Detail Facility Tobacco smoking status [facility] Sex Assigned At Female [facility] Start: 1980 Sex Assigned At Female [facility] Start: 01-19-2024 Tobacco smoking status Never s moked tobacco (finding) [facility] Tobacco smoking status Never [facility] Functional Status Date Assessment Result Facility 12-19-2023 Functional Status N/A [facility] Clinical Note 12-20-2023 Note Date & Type Note Facility 12-20-2023 Note Progress Note-Nurse Patient called requesting Zofran after yesterdays visit. Sent to pharmacy per [facility] Bhakta [facility] Hospital Discharge instructions 12-20-2023 Note Date & Type Note Facility 12-20-2023 Hospital Discharg e instructions Patient Education 12/19/2023 23:16:40 Hepatomegaly, Kkii-xe-Coke Hepatomegaly Hepatomegaly is when the liver is [...] asked to do the following: Medicines Take akgh-ubv-zpiekzu and prescription medicines only as told by your doctor. Do not take any new medicine unless your doctor says it is okay. ?This includes vitamins, herbs, supplements, and ddei-agz-nulnbsh medicines. Some of these can hurt your [...] provider. Document Revised: 03/24/2022 Document Reviewed: 03/24/2022 [employer] Patient Education 2022 [employer]. 12/19/2023 23:16:40 Abdominal Pain, Adult Abdominal Pain, [...] Follow these instructions at home: Medicines Take lkyr-vao-spqhfeo and prescription medicines only as told by [...] Watch your condition for any changes. Take ssdl-dnf-dpwixgz and prescription medicines only as told by [...] provider. Document Revised: 06/13/2020 Document Reviewed: 09/03/2019 [employer] Patient Education 2022 [employer]. Follow Up Care 12/19/2023 16:03:37 With:Booker Shelley Address: [address], [address] [facility] [address] [place] [address]- [phone] Business (1) When:12/22/2023 With:CYNDI EPPERSON Address: [address] [place] [address] [phone] Business (1) When:Within 3 Day(s) [facility] Clinical Note 12-19-2023 Note Date & Type [...] to do the following: Medicines ? Take qqww-njx-ijhkeyk and prescription medicines only as told by your doctor. ? Do not take any new medicine unless your doctor says it is okay. ? This includes vitamins, herbs, supplements, and gpdd-tqa-ounngxt medicines. Some of these can hurt your [...] provider. Document Revised: 03/24/2022 Document Reviewed: 03/24/2022 [employer] Patient Education ? 2022 [employer] Abdominal Pain, Adult Pain in the [...] these instructions at home: Medicines ? Take lniu-kkz-hvhnfze and prescription medicines only as told by [...] tar. ? You (more content not included)... [facility] Evaluation + Plan note Note Date & Type Note Facility Evaluation + Plan note No data available for this section [facility] Evaluation + Plan note Laboratory Note Date & Type Note Facility Evaluation + Plan note Future Appointments Appointment Date:04/19/2024 02:45:00 PM Scheduled Provider:Booker Shelley MD Location:[facility] Appointment Type:[facility] Follow Up Future Scheduled TestsH. pylori Breath Test 01/19/24 [facility] Evaluation note Note Date & Type Note Facility Evaluation note No assessment information availa [facility] Work Phone: Hospital Discharge instructions Note Date & Type Note Facility Hospital Discharge instructions No data available for this section [facility] Progress note Note Date & Type Note Facility Progress note No data available for this section [facility] Summary Purpose Family History No Family History [...] CREATED AUTHOR AUTHOR'S ORGANIZ ATION 12/20/2023 [facility] DATE CREATED AUTHOR AUTHOR'S ORGANIZ ATION 12/21/2023 [facility] DATE CREATED AUTHOR AUTHOR'S ORGANIZ ATION 01/13/2024 [facility] EPIC DATE CREATED AUTHOR AUTHOR'S ORGANIZ ATION 01/21/2024 [facility] DATE CREATED AUTHOR AUTHOR'S ORGANIZ ATION 02/14/2024 [facility] DATE CREATED AUTHOR AUTHOR'S ORGANIZ ATION 02/16/2024 [facility] Patient Care team informatio n [...] THE PRIMARY CLINICAL RECORDS. [facility]. provides no warranty or guarantee of the accuracy or completeness of information in this document.
[2024-02-22 17:01] LABS: Amylase 57 U/L (25-115)
[2024-02-22 17:07] LABS: Erythrocyte Sedimentation Rate 3 mm/hr (<=20)
[2024-02-22 17:08] LABS: C Reactive Protein <0.50 mg/dL (<=0.50)
[2024-02-24 06:10] LABS: Antistreptolysin O Ab 124.7 IU/mL (0.0-200.0)
[2024-02-27 12:08] LABS: Antinuclear Antibodies, IFA Positive (.); Nuclear Dot Pattern >1:1280 (.)
== END 2024-02-22 16:14 | disposition home or self-care (01) ==
PROVIDERS: PCP Nurse Practitioner; Visit Provider Nurse Practitioner
DX: R10.10 Upper abdominal pain, unspecified (principal); R16.0 Hepatomegaly, not elsewhere classified
CPT/HCPCS: 36415; 82150; 83690; 85652; 86038; 86060; 86140

== ENCOUNTER 2024-03-06 06:59 | Emergency (ER) | payer OTHER, SELFPAY ==
[2024-03-06 07:03] VITALS: BP 135/98; PULSE 82; TEMP 36.5; O2SAT 100; BMI 19.7
--- OUTSIDE RECORDS SUMMARY | 2024-03-06 07:07 | XMS_ITS | CCD ---
Author Organization [facility] Informat ion Partnership [facility] Care Team Providers Care Bottom Man Name Role Phone AICHOLZ, BENCH TOOL MAKER CYNDI Consulting Unavailable AICHHOLZ, BENCH TOOL MAKER CYNDI Primary Care Unavailable AICHOLZ, BENCH TOOL MAKER CYNDI Attending Unavailable AICHHOLZ, BENCH TOOL MAKER CYNDI Admitting Unavailable ROVERTO, DR RAMYA Rogers Consulting Unavailable KARASIK ., DR HDZ Consulting Unavailabl e AICHHOLZ, BENCH TOOL MAKER CYNDI Primary Care Unavailable KARASIK ., DR HDZ Attending Unavailabl e KARASIK ., DR HDZ Admitting Unavailabl e PIPPA LOVING Consulting Unavaila ble GEMBUSNUPUR Consulting Unavailable KARASIK ., DR HDZ Consulting Unavailabl e AICHHOLZ, [facility] CYNDI Primary Care Unavailable KARASIK ., DR HDZ Attending Unavailabl e KARASIK ., DR HDZ Admitting Unavailabl e RAMON CEDENO Consulting Unavailable AICHHOLZ, BENCH TOOL MAKER CYNDI Primary Care Unavailable KARASIK ., DR HDZ Attending Unavailabl e KARASIK ., DR HDZ Admitting Unavailabl e AICHHOLZ, BENCH TOOL MAKER CYNDI Primary Care Unavailable KARASIK ., DR HDZ Attending Unavailabl e KARASIK ., DR HDZ Admitting Unavailabl e AICHHOLZ, BENCH TOOL MAKER CYNDI Primary Care Unavailable KARASIK ., DR HDZ Attending Unavailabl e KARASIK ., DR HDZ Admitting Unavailabl e KARASIK ., DR HDZ Consulting Unavailabl e AICHHOLZ, BENCH TOOL MAKER CYNDI Primary Care Unavailable KARASIK ., DR HDZ Attending Unavailabl e KARASIK ., DR HDZ Admitting Unavailabl e KARASIK ., DR HDZ Consulting Unavailabl e KARAMLOU, ESTEPHANIA Admitting Unavailable AICHHOLZ, BENCH TOOL MAKER CYNDI Primary Care Unavailable KARASIK ., DR HDZ Attending Unavailabl e TED, DR MIKE Flores Consulting Unavailable AICHHOLZ, BENCH TOOL MAKER CYNDI Primary Care Unavailable AICHHOLZ, BENCH TOOL MAKER CYNDI Attending Unavailable AICHHOLZ, BENCH TOOL MAKER CYNDI Admitting Unavailable AICHHOLZ, BENCH TOOL MAKER CYNDI Consulting Unavailable AICHHOLZ, BENCH TOOL MAKER CYNDI Consulting Unavailable AICHHOLZ, BENCH TOOL MAKER CYNDI Primary Care Unavailable AICHHOLZ, BENCH TOOL MAKER CYNDI Attending Unavailable AICHHOLZ, BENCH TOOL MAKER CYNDI Admitting Unavailable AICHHOLZ, BENCH TOOL MAKER CYNDI Consulting Unavailable AICHHOLZ, BENCH TOOL MAKER CYNDI Primary Care Unavailable AICHHOLZ, BENCH TOOL MAKER CYNDI Attending Unavailable AICHHOLZ, BENCH TOOL MAKER CYNDI Admitting Unavailable AICHHOLZ, BENCH TOOL MAKER CYNDI Consulting Unavailable AICHHOLZ, BENCH TOOL MAKER CYNDI Primary Care Unavailable AICHHOLZ, BENCH TOOL MAKER CYNDI Attending Unavailable AICHHOLZ, BENCH TOOL MAKER CYNDI Admitting Unavailable KARASIK ., DR HDZ Consulting Unavailabl e AICHHOLZ, BENCH TOOL MAKER CYNDI Primary Care Unavailable KARASIK ., DR HDZ Attending Unavailabl e KARASIK ., DR HDZ Admitting Unavailabl e KARASIK ., DR HDZ Consulting Unavailabl e AICHHOLZ, BENCH TOOL MAKER CYNDI Primary Care Unavailable KARASIK ., DR HDZ Attending Unavailabl e KARASIK ., DR HDZ Admitting Unavailabl e HEATHER SWEENEY Consulting Unavailable KARASIK ., DR HDZ Procedure Practitioner Pina vailable ADINA YIP Consulting Unavailable AICHHOLZ, BENCH TOOL MAKER CYNDI Primary Care Unavailable KARASIK ., DR HDZ Attending Unavailabl e KARASIK ., DR HDZ Admitting Unavailabl e AICHHOLZ, CYNDI J Primary Care Physician Reza Bedoya Attending Unavailable DO Samuel Lacey Attending Provider [phone] Reza Bedoya Attending Unavailable Booker Shelley Attending Unavaila Booker Garnica Attending Unavaila Samuel Goldberg Attending Unavailable Samuel Lacey Admitting Unavailable Booker Shelley Referring Unavaila Booker Garnica Attending Unavaila Booker Garnica Admitting UnavailRogelio Duvall MD Primary Care Provider Zeenat DYNAMITE SHOOTER, Cyndi Unavailable CYNDI EPPERSON Attending Unavailable SAMUEL LACEY Attending Unavailable CYNDI EPPERSON Attending Unavailable CYNDI EPPERSON Attending Unavailable SELF Referring Unavailable CYNDI EPPERSON Primary Care Unavailable JONATHAN RUBI Attending Unavailable Allergies Allergy Classification Reported Allergen(s) Allergy Type Date of Onset Reaction(s) Facility (2 sources) Penicillins; Translations: [PENICILLINS] Drug allergy (disorder) 5 [facility] Repository (1 source) Misc-Other; Translations: [Misc-Other] Propensity to adverse reactions (disorder) 2 [facility] (12 sources) Amoxicillin; Translations: [amoxicillin] Drug Allergy 4 [facility] (4 sources) Acetaminophen / oxyCODONE Drug Allergy 4 GI intolerance [facility] (4 sources) Penicillin G Drug Allergy 4 Rash [facility] Medications Current Medications Medication Drug Class(es) Dates Sig (Normalized) Sig (Original) amitriptyline hydrochloride 25 mg oral tablet (4 sources) Tricyclic Antidepressant Start: 02-10-2024 take 1 tablet by mouth at bedtime amitriptyline (Elavil) 25 MG tablet Take 25 mg by mouth at bedtime 02/10/2024 Active dicyclomine hydrochloride 10 mg oral capsule (6 sources) Anticholinergic Start: 01-19-2024 End: 03-07-2024 take 1 capsule by mouth every eight hours dicyclomine (Bentyl) 10 MG capsule Indications: Pain of upper abdomen Take 1 capsule (10 mg) by mouth every 8 (eight) hours if needed (abd pain/cramping) 90 capsule 02/06/2024 03/07/2024 Active Start: 12-19-2023 End: 12-26-2023 take 1 capsule by mouth every six hours as needed for muscle spasms Bentyl 10 mg Cap 10 mg = 1 cap(s), Oral, q6hr, PRN Spasm, X 7 day(s), # 30 cap(s), Refills(s) 0, Pharmacy: [facility]/pharmacy #[id number], 170.2, cm, 12/19/23 16:15:00 EDT, Height/Length Dosing, 57.8, kg, 12/19/23 16:15:00 EDT, Weight Dosing Start Date: 12/19/23 Stop Date: 12/26/23 Status: Ordered omeprazole 20 mg delayed release oral capsule (5 sources) Proton Pump Inhibitor Start: 12-22-2023 take 1 capsule by mouth before mealtime omeprazole (PriLOSEC) [address] capsule Indications: Pain of upper abdomen Take 1 capsule (20 mg) by mouth in the morning. Take before meals. Do not crush or chew.. 30 capsule 1 12/22/2023 Active ondansetron 4 mg oral tablet (5 sources) Serotonin-3 Receptor Antagonist Start: 01-19-2024 take 1 tablet by mouth every eight hours as needed for nausea Zofran 4 mg Tab 4 mg = 1 tab(s), Oral, q8hr, PRN Nausea/Vomiting, # 60 tab(s), Refills(s) 3, Pharmacy: [facility]/pharmacy #[id number], 170, cm, 01/19/24 12:39:00 EDT, Height/Length Dosing, 58.2, kg, 01/19/24 12:39:00 EDT, Weight Dosing Start Date: 01/19/24 Status: Ordered Start: 12-20-2023 take 1 tablet by livia th every eight hours as needed ondansetron ODT (Zofran-ODT) 4 MG disintegrating tablet Take 4 mg by mouth every 8 (eight) hours if needed 12/20/2023 Active sucralfate 1000 mg oral tablet (4 sources) Aluminum Complex Start: 02-21-2024 sucralfate (Carafate) 1 g tablet Take 1 g by mouth 02/21/2024 Active traMADol hydrochloride 50 mg oral tablet (5 sources) Opioid Agonist Start: 12-19-2023 take 1 tablet by mouth every six hours as needed for pain traMADol (Ultram) 50 MG tablet Take 50 mg by mouth every 6 (six) hours if needed for severe pain Pt is taking half of 50mg (25mg) every 6hrs PRN 12/19/2023 Active Zofran ODT 4 mg Tab-Dis (1 source) Start: 12-20-2023 take 1 tablet by mouth three times daily Zofran ODT 4 mg Tab-Dis 4 mg = 1 tab(s), Oral, TID, # 15 tab(s), Refills(s) 0, Pharmacy: [facility]/pharmacy #[id number], 170.2, cm, 12/19/23 16:15:00 EDT, Height/Length Dosing, 57.8, kg, 12/19/23 16:15:00 EDT, Weight Dosing Start Date: 12/20/23 Status: Ordered Problems Active Problems Problem Classification Problem Date Documented Date Episodic/Chronic Abdominal pain (9 sources) Pelvic and perineal pain; Translations: [Abdominal pain] Onset: 03-30-2022 Episodic Anxiety disorders (6 sources) Panic attack; Translations: [Panic disorder [episodic paroxysmal anxiety]] Onset: 12-22-2023 02-22-2024 Chronic Endometriosis (5 sources) Endometriosis, unspecified; Translations: [Endometriosis (clinical)] Onset: 03-30-2022 12-22-2023 Chronic Glaucoma (4 sources) Ocular hypertension; Translations: [Ocular hypertension, unspecified eye] Onset: 12-22-2023 12-22-2023 Chronic Immunizations and screening for infectious disease (4 sources) Encounter for screening for human papillomavirus (HPV); Translations: [Raised antinuclear antibody] Onset: 09-19-2022 03-01-2024 Episodic Menstrual disorders (11 sources) Dysmenorrhea, unspecified; Translations: [Excessive and frequent menstruation with regular cycle] Onset: 02-01-2022 Chronic Nonspecific chest pain (6 sources) Tight chest; Translations: [Other chest pain] Onset: 02-22-2024 02-22-2024 Episodic Nutritional deficiencies (9 sources) Iron deficiency; Translations: [Iron deficiency] Onset: 03-09-2022 Episodic Other eye disorders (4 sources) Myogenic ptosis; 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] Onset: 12-22-2023 12-22-2023 Episodic Other female genital disorders (4 sources) Unspecified dyspareunia; Translations: [UNSPECIFIED DYSPAREUNIA] Onset: 03-22-2022 Chronic Other liver diseases (8 sources) Large liver; Translations: [Hepatomegaly, not elsewhere classified] Onset: 12-19-2023 Episodic Other screening for suspected conditions (not mental disorders or infectious disease) (16 sources) Encounter for screening for malignant neoplasm [...] dysplasias of left breast] Onset: 09-22-2021 Episodic Screening and history of mental health and substance abuse codes (1 source) Personal history of nicotine dependence; Translations: [PERSONAL HISTORY OF NICOTINE DEPEND] Onset: 03-30-2022 Episodic Unclassified (1 source) CONTACT W/AND (SUSP) EXPOS COVID-19; Translations: [CONTACT W/AND (SUSP) EXPOS COVID-19] Onset: 01-05-2022 Results Test Name Value Interpretation Reference Range Facility 36on 03-02-2024 36 Patient called stating that her labs were resulted yesterday at [facility]. I updated them in her chart in care everywhere. Patient & her partner would like you to review them & contact them to discuss results. Normal [facility] US MESENTERIC ARTERY CMPLT V LABon 03-02-2024 US MESENTERIC ARTERY CMPLT VAS LAB Non-Invasive Vascular Laboratory [facility] J35 Renal or Mesenteric Duplex Bilateral/Complete Date of service/time: 03/02/2024 8:15:26 AM Name: MRS. NIKKI MARTINS Date of : 1980 Age: 43 years Gender: F Clinical Indication Abdominal pain. TECHNIQUE -------- A visceral duplex ultrasound examination was performed, including grayscale imaging and color Doppler and spectral Doppler examination of the below mentioned arteries and veins. FINDINGS -------- Aorta proximal PSV: 70 cm/s. EDV: 16 cm/s. Aorta at renals PSV: 67 cm/s. EDV: 0 cm/s. Aorta mid PSV: 94 cm/s. EDV: 0 cm/s. Aorta distal PSV: 84 cm/s. EDV: 0 cm/s. Celiac origin PSV: 321 cm/s. EDV: 100 cm/s. Celiac proximal PSV: 280 cm/s. EDV: 86 cm/s. Celiac mid PSV: 162 cm/s. EDV: 65 cm/s. Celiac distal PSV: 149 cm/s. EDV: 54 cm/s. Celiac with inspiration greater than PSV: 189 cm/s. EDV: 62 cm/s. Superior mesenteric artery origin PSV: 130 cm/s. EDV: 20 cm/s. Superior mesenteric artery proximal PSV: 148 cm/s. EDV: 22 cm/s. Superior mesenteric artery mid PSV: 163 cm/s. EDV: 22 cm/s. Superior mesenteric artery distal PSV: 138 cm/s. EDV: 17 cm/s. Inferior mesenteric artery origin PSV: 119 cm/s. EDV: 0 cm/s. Inferior mesenteric artery proximal PSV: 126 cm/s. EDV: 0 cm/s. Inferior mesenteric artery mid PSV: 131 cm/s. EDV: 12 cm/s. IMPRESSION AORTA Patent. MESENTERIC VESSELS Celiac: Evidence of dynamic elevated velocities due to median arcuate ligament compression. Hepatic: Not evaluated. Splenic: Not evaluated. Superior mesenteric artery: 0-69% stenosis. No evidence of hemodynamically significant stenosis. Inferior mesenteric artery: 0-69% stenosis. No evidence of hemodynamically significant stenosis. Technologist: Elisha Rose RVT Interpreting physician: CHATO Bright DO Final CC [employer] [facility] : [id number] [email or web address] See Link below for Image Normal [facility] Office Visiton 02-29-2024 Follow-up visit [id number] ArtemioNikki 1980 F Date Provider Department Center 02/29/2024 JONATHAN CHOI [facility] INF [facility] No family history on file Level of Service:02878 OK OFFICE/OUTPATIENT NEW HIGH MDM 60 MINUTES Normal [facility] ALL AMYLASEon 02-22-2024 Amylase [Catalytic activity/Vol] 57 U/L 25 - 115 U/L [facility] ALL C REACTIVE PROTEINon CRP [Mass/Vol] mg/L [facility]dL [facility] ALL SED RATEon 02-22-2024 TBH SED RATE 3 NINF [facility] LIPASEon 02-22-2024 Lipase [Catalytic activity/Vol] 52 U/L 16.0 - 77.0 U/L [facility] No Panel Informationon 02-21 [facility] NM Gastric Emptying Studyon 02-09-2024 LA Gastric Emptying Study Exam Date/Time: 02/07/2024 11:36 EDT Reason for Exam: Other (please specify) Report IMPRESSION: ESSENTIALLY NORMAL GASTRIC EMPTYING. EXAM: LA Gastric Emptying Study DATE: 02/07/2024 7:58 AM [...] 3.0 hr (Upper Limit 30%) 5.3 Normal [facility] Gastroenterology Office/Clin ic Noteon 01-19-2024 Gastroenterology Office/Clinic Note Gastroenterology Office/Clinic Note Chief Complaint Abdominal pain HPI Staff Patient is a(n) 43 year old female who presents today for a f/u from [facility] 12/19/23 for acute abdominal pain and hepatomegaly. Fhx fatty liver disease. Denies previous EGD/Colonoscopy. Denies Fhx colon cancer. Denies blood thinners/GLP-1 agonists. Patient states that last Tuesday she had colonoscopy and EGD at [facility]. Abdominal pain: When did you first have [...] @ [place]: Normal colon CT 12/15/23 @ [place]: IMPRESSION: 1. Heterogeneous enlarged liver. Correlate with labs. 2. No acute bowel or inflammatory findings. Normal appendix. 3. Simple 1 cm right renal cyst. RUQ US 12/16/23: IMPRESSION: 1. No acute or specific findings to account for patient's symptoms. 2. No suspicious abnormality of the liver. CT 12/19/23: IMPRESSION: NO ACUTE INTRA-ABDOMINAL PROCESS IDENTIFIED. HIDA 01/04 @ [place]: IMPRESSION: 1. Normal nuclear medicine HIDA scan. [...] 91.3 fL (12/19/23) Chloride: 103 mmol/L (12/19/23) Leslie Absolute: 0.6 E9/L (12/19/23) CO2: 29 mmol/L (12/19/23) Leslie Auto: 4.8 % (12/19/23) Creatinine: 0.9 mg/dL [...] Nausea/Vomiting, # 60 tab(s), Refills(s) 3, Pharmacy: [facility]/pharmacy #[id number], 170, cm, 01/19/24 12:39:00 [...] tab(s), Oral, (more content not included)... Normal [facility] Comment on above: Result Comment: Elec tronically Signed By: Daphney MCKINLEY, Booker Jenkins\.br\Date and Time Signed: 01/19/24 13:00 EDT Deejay 01-10-2024 L Specimen: [id number] Received: 01/12/24 Status: KATHERINE Marks Num: [id number] Spec Type: Surgical Subm Dr: Samuel Lacey DO Tissues: A STOMACH FOR HP (PREPYLORIC BX R/O H PYLORI) Procedures: HE/2, Gross/Micro L4, H PYLORI, RECUT Age/ Patient Sex Location Account Attending Physician Nikki Martins 43/F [facility] [id number] Samuel Lacey DO SPEC NUM: [id number] RECD: 01/12/24 STATUS: KATHERINE MARKS NUM: [id number] ELENO: 01/10/[address]: Samuel Lacey DO ENTERED: 01/12/24-4[address] [facility] DR: Shay Perez SPEC TYPE: Surgical DEPT: ARUNA LAWLER ENTERED BY: [id number] RECV BY: [id number] ORDERED: HE/2, Gross/Micro L4, H PYLORI, RECUT ORDERED: HE/2, Gross/Micro L4, H PYLORI, RECUT Supplemental Report Addendum 1 Entered: 02/02/24 Supplemental for findings of H. pylori immunostain as performed per clinician's specimen requisition sheet: -H. pylori immunostain with appropriate control is also negative for identified Helicobacter organism or infection CPT: 85298 Addendum Signed (signature on file) Karen Bhardwaj MD 02/02/24926 Pathological Diagnosis Prepyloric gastric biopsy: -Antral mucosa with mild reactive gastropathy, including minor associated congestion without any other specific changes (no erosion, intestinal metaplasia, or any significant stromal chronic inflammation) Specimen: [id number] Received: 01/12/247388 Status: KATHERINE Marks Num: [id number] Spec Type: Surgical Subm Dr: Samuel Lacey DO Tissues: A STOMACH FOR HP (PREPYLORIC BX R/O H PYLORI) Procedures: HE/2, Gross/Micro L4, H PYLORI, RECUT Patient: Nikki Martins [id number] (Continued) Specimen: [id number] Received: 01/12/24 (Continued) Pathological Diagnosis (Continued) Signed (signature on file) Karen Bhardwaj MD 02/02/24 0851 Specimen: [id number] Received: 01/12/24 Status: KATHERINE Marks Num: [id number] Spec Type: Surgical Subm Dr: Samuel Lacey DO Tissues: A STOMACH FOR HP (PREPYLORIC BX R/O H PYLORI) Procedures: HE/2, Gross/Micro L4, H PYLORI, RECUT Patient: Nikki Martins [id number] (Continued) Specimen: [id number] Received: 01/12/24 (Continued) Pathological Diagnosis (Continued) -Also [...] performed supporting the above interpretation CPT Codes 19921 Specimen: [id number] Received: 01/12/24 Status: KATHERINE Marks Num: [id number] Spec Type: Surgical Subm Dr: Samuel Lacey DO Tissues: A STOMACH FOR HP (PREPYLORIC BX R/O H PYLORI) Procedures: HE/2, Gross/Micro L4, H PYLORI, RECUT Patient: Nikki Martins [id number] (Continued) Signed (signature on file) Karen Bhardwaj MD 02/02/24 0851 Normal [facility] CT Abdomen/Pelvis w/ Contras ton [...] 300 Contrast amount in ml's: 100 Normal [facility] ED Note-Physicianon 12-20-19 ED Note-Physician ED Note-Physician Basic Information Time Seen: Emily Troy PA-C. 12/19/2023 17:17 Chief Complaint was at [facility] for di[facility]ram pain. had ct's done. still [...] The patient states she was seen at [facility] last Tuesday. She states they [...] difficulty concentrating, paranoia, anhedonia, lack of energy, ebatriz Hematologic/lymphati c: Denies any purpura, petechiae, excessive [...] in length (more content not included)... Normal [facility] Comment on above: Result Comment: Elec tronically Signed By: Emily Troy PA-C\.br\Date and Time Signed: 12/19/23 23:05 EDT\.br\Electronically Co-Signed By: Emily Troy PA-C.br\Date and Time Co-Signed: 12/19/23 23:06 EDT\.br\Electronically Co-Signed By: Emily Troy PA-C.br\Date and Time Co-Signed: 12/19/23 23:22 EDT\.br\Electronically Co-Signed By: Reza Bedoya DO\.br\Date and Time Co-Signed: 12/20/23 07:02 EDT BMPon 12-19-2023 Anion gap [Moles/Vol] 10 mmol/L Normal 6-16 [facility] Comment on above: Performed By: #### 2 [id number] #### [facility] [address] [place] [address] Calcium [Mass/Vol] 9.7 mg/dL Normal 8.9-11.1 [facility] Comment on above: Performed By: #### 2 [id number] #### [facility] [address] [place] [address] Chloride [Moles/Vol] 103 mmol/L Normal 101-111 [facility] Comment on above: Performed By: #### 2 [id number] #### [facility] [address] [place] [address] CO2 [Moles/Vol] 29 mmol/L Normal 21-31 [facility] Comment on above: Performed By: #### 2 [id number] #### [facility] [address] [place] [address] Creatinine [Mass/Vol] 0.9 mg/dL Normal 0.5-1.3 [facility] Comment on above: Performed By: #### 2 [id number] #### [facility] [address] [place] [address] Glucose [Mass/Vol] 92 mg/dL Normal 55-199 [facility] Comment on above: Performed By: #### 2 [id number] #### [facility] [address] [place] [address] Potassium [Moles/Vol] 4.3 mmol/L Normal 3.5-5.3 [facility] Comment on above: Performed By: #### 2 [id number] #### [facility] [address] [place] [address] Sodium [Moles/Vol] 138 mmol/L Normal 135-145 [facility] Comment on above: Performed By: #### 2 [id number] #### [facility] [address] [place] [address] Urea nitrogen [Mass/Vol] 17 mg/dL Normal 5-21 [facility] Comment on above: Performed By: #### 2 [id number] #### [facility] [address] [place] [address] Urea nitrogen/Creatinine [Mass ratio] 19 No Units Normal 10-20 [facility] Comment on above: Performed By: #### 2 [id number] #### [facility] [address] [place] [address] CBC w/ Auto Diffon 4 Basophils/100 WBC (Bld) 0.5 % Normal 0.0-2.0 [facility] Comment on above: Performed By: #### 2 [id number] #### [facility] [address] [place] [address] Basophils/Leukocytes Auto (Bld) [Pure # fraction] 0.1 E9/L Normal 0.0-0.2 [facility] Comment on above: Performed By: #### 2 195026 #### [facility] [address] [place] [address] Eosinophils (Bld) [#/Vol] 0.1 E9/L Normal 0.0-0.5 [facility] Comment on above: Performed By: #### 2 [id number] #### [facility] [address] [place] [address] Eosinophils/100 WBC (Bld) 0.6 % Normal 0.0-8.0 [facility] Comment on above: Performed By: #### 2 [id number] #### [facility] [address] [place] [address] Erythrocyte distribution width (RBC) [Ratio] 13.1 % Normal 10.9-14.2 [facility] Comment on above: Performed By: #### 2 [id number] #### [facility] [address] [place] [address] Hematocrit (Bld) [Volume fraction] 42.6 % Normal 34.0-46.0 [facility] Comment on above: Performed By: #### 2 [id number] #### [facility] [address] [place] [address] Hemoglobin (Bld) [Mass/Vol] 14.7 g/dL Normal 12.0-16.0 [facility] Comment on above: Performed By: #### 2 937222 #### [facility] [address] [place] [address] Lymphocytes (Bld) [#/Vol] 2.2 E9/L Normal 1.0-4.0 [facility] Comment on above: Performed By: #### 2 735014 #### [facility] [address] [place] [address] Lymphocytes/100 WBC (Bld) 18.7 % Normal 14.0-50.0 [facility] Comment on above: Performed By: #### 2 235393 #### [facility] [address] [place] [address] MCH (RBC) [Entitic mass] 31.5 pg Normal 27.0-34.0 [facility] Comment on above: Performed By: #### 2 614148 #### [facility] [address] [place] [address] MCHC (RBC) [Mass/Vol] 34.5 g/dL Normal 31.4-36.0 [facility] Comment on above: Performed By: #### 2 [id number] #### [facility] [address] [place] [address] MCV (RBC) [Entitic vol] 91.3 fL Normal 80.0-100.0 [facility] Comment on above: Performed By: #### 2 010050 #### [facility] [address] [place] [address] Monocytes (Bld) [#/Vol] 0.6 E9/L Normal 0.2-1.0 [facility] Comment on above: Performed By: #### 2 [id number] #### [facility] [address] [place] [address] Neutrophils (Bld) [#/Vol] 8.7 E9/L High 2.0-7.5 [facility] Comment on above: Performed By: #### 2 665772 #### [facility] [address] [place] [address] Neutrophils/100 WBC (Bld) 75.4 % High 36.0-75.0 [facility] Comment on above: Performed By: #### 2 [id number] #### [facility] [address] [place] [address] Platelet mean volume (Bld) [Entitic vol] 8.9 fL Normal 6.4-10.8 [facility] Comment on above: Performed By: #### 2 [id number] #### [facility] [address] [place] [address] Platelets (Bld) [#/Vol] 173.0 E9/L Normal 150.0-500.0 [facility] Comment on above: Performed By: #### 2 101889 #### [facility] [address] [place] [address] RBC (Bld) [#/Vol] 4.7 E12/L Normal 4.3-5.9 [facility] Comment on above: Performed By: #### 2 [id number] #### [facility] [address] [address] WBC corrected for nucl RBC Auto (Bld) [#/Vol] 11.5 E9/L High 4.0-11.0 [facility] Comment on above: Performed By: #### 2 [id number] #### [facility] [address] [place] [address] CHEMISTRYOrdered By: SYSTEM SYSTEM on 12-19-2023 Albumin [...] Chem eGFR 80 mL/min/1.73 m2 Normal >=59mL/min /1 .73 m2 Remisol Chem Glucose [Mass/Vol] 92 mg/dL [...] 29.0 s Normal 25.1 - 36.5 second(s) [facility] Auto Coag Comment on above: Interpretive Data: [...] the same coagulation reagent and instrumentation as [facility]. Currently there are no coagulation studies available worldwide for children to 14 days, and no normal ranges. Heparin therapeutic range (represented by Anti-Factor Xa activity of 0.2 - 0.4 U/mL) corresponds to PTT of 56.6 - 109.0 sec. INR Coag (PPP) [Relative time] 1.05 {INR} Invalid Interpretation Code [facility] Auto Coag Comment on above: Interpretive Data: I NR results are specifically intended to assess patients stabilized on long-term Anticoagulation therapy suggested INR s Less Intensive Anticoagulation 2.0 3.0 Conventional Range 3.0 4.5 PT Coag (PPP) [Time] 11.8 s Normal 9.4 - 1 2.5 second(s) [facility] Auto Coag Comment on above: Interpretive Data: [...] were obtained from a study by crista vAilez al. prepared from 1437 samples obtained at 7 different centers using the same coagulation reagent and instrumentation as [facility]. Currently there are no coagulation studies available worldwide for children to 14 days, and no normal ranges. ED Clinical Summaryon 2023 ED Clinical Summary ED Clinical Summary [place] [id number] ED Clinical Summary Person Information [facility]: [facility] Age[facility] 43 Years : 1980 Sex: Female Language: Kyrgyz PCP: CYNDI EPPERSON CNP Marital Status: Single [...] 12/19/2023 23:16:39 12/19/2023 23:16:39 12/19/2023 23:16:39 ADDRESS: [address] [place] [phone] PHYS DOC NOTES: MEDICAL INFORMATION: Prescriptions Given: New Medications [id number], [address] [place], [place] [id number], [phone] dicyclomine (Bentyl 10 mg Cap) 1 Capsules By Mouth every 6 hours as needed Spasm for 7 Days. Refills: 0. tramadol (traMADOL 50 mg Tab) 0.5-1 tab(s) By Mouth every 6 hours as needed as needed for pain. Refills: 0. PATIENT EDUCATION INFORMATION: Instructions: Hepatomegaly, Idla-kt-Cfwy; Abdominal Pain, Adult Follow up: With: Address: When: [address], [address], [address] [phone] Business (1) In 3 days 12/22/2023 With: Address: When: CYNDI ZEENAT [address] [place], [place] [phone] Business (1) In 3 days DIAGNOSIS: 1:Acute abdominal pain; 2:Hepatomegaly Normal [facility] ED Patient Summaryon 024 ED Patient Summary ED Patient Summary [address] [address] Patient Discharge Instructions Person Information Name: NIKKI MARTINS Age: 43 Years Arrival Date: 12/19/2023 15:58:56 Discharge Diagnosis: 1:Acute abdominal pain; 2:Hepatomegaly Primary Care Physician: CYNDI EPPERSON CNP Provider Information Primary Provider: Reza Bedoya DO Advanced Property Adjuster:None The exam and treatment you received in the Emergency Department were for an urgent problem and are not intended as complete care. It is important that you follow up with a doctor, nurse practitioner, or physician?s butcher's assistant for ongoing care. If your symptoms become worse or you do not improve as expected and you are unable to reach your usual health care provider, you should return to the Emergency Department. We are available 24 hours a day. NIKKI MARTINS has been given the following list of patient education materials, prescriptions and follow-up instructions: Follow-up Instructions: With: Address: When: [address], [address], [address] [phone] [email or web address] (1) In 3 days 12/22/2023 With: Address: When: CYNDI EPPERSON [address] [place] [phone] [email or web address] (1) In 3 days In the event that this physician does not participate in your insurance network, please consult with your insurance company to find a nearby participating provider. Patient Education Materials: Hepatomegaly, Rxra-py-Doud; Abdominal Pain, Adult A MESSAGE TO ALL PATIENTS REGARDING OPIOIDS PRESCRIPTION OPIOIDS: WHAT YOU NEED TO KNOW Prescription opioids can be used to help relieve rignpytx-xn-qaebws pain and are often prescribed following a [...] opioids abuse (more content not included)... Normal [facility] HEMATOLOGYOrdered By: SYSTEM SYSTEM on 12-19-2023 [...] 12-19-2023 Albumin [Mass/Vol] 4.3 g/dL Normal 3.3-5.0 [facility] Comment on above: Performed By: #### 2 [id number] #### [facility] [address] [place] [address] Albumin/Globulin (S) [Mass conc ratio] 2.0 Normal 1.1-2.2 [facility] Comment on above: Performed By: #### 2 [id number] #### [facility] [address] [place] [address] ALP [Catalytic activity/Vol] 28 Int._Unit/L Normal 21-98 [facility] Comment on above: Performed By: #### 2 [id number] #### [facility] [address] [place] [address] ALT No additional P-5'-P [Catalytic activity/Vol] 14 Int._Unit/L Normal 6-46 [facility] Comment on above: Performed By: #### 2 [id number] #### [facility] [address] [place] [address] AST [Catalytic activity/Vol] 14 Int._Unit/L Normal 5-43 [facility] Comment on above: Performed By: #### 2 [id number] #### [facility] [address] [place] [address] Bilirubin [Mass/Vol] 1.0 mg/dL Normal 0.0-1.1 [facility] Comment on above: Performed By: #### 2 [id number] #### [facility] [address] [place] [address] Bilirubin.direct [Mass/Vol] 0.1 mg/dL Normal 0.0-0.4 [facility] Comment on above: Performed By: #### 2 [id number] #### [facility] [address] [place] [address] Bilirubin.indirect [Mass or moles/Vol] 0.9 mg/dL Normal 0.1-0.9 [facility] Comment on above: Performed By: #### 2 [id number] #### [facility] [address] [place] [address] Globulin (S) [Mass/Vol] 2.1 g/dL Normal 1.4-4.0 [facility] Comment on above: Performed By: #### 2 [id number] #### [facility] [address] [place] [address] Protein [Mass/Vol] 6.4 g/dL Normal 6.0-7.8 [facility] Comment on above: Performed By: #### 2 [id number] #### [facility] [address] [place] [address] Lipase Levelon 12-19-2023 Lipase [Catalytic activity/Vol] 18 U/L Normal 13-58 [facility] Comment on above: Performed By: #### 2 [id number] #### [facility] [address] [place] [address] PT & PTTon 12-19-2023 aPTT Coag (PPP) [Time] 29.0 second(s) Normal 25.1-36.5 [facility] Comment on above: Result Comment: Para [...] the same coagulation reagent and instrumentation as [facility]. Currently there are no coagulation studies available worldwide for children to 14 days, and no normal ranges. Heparin therapeutic range (represented by Anti-Factor Xa activity of 0.2 - 0.4 U/mL) corresponds to PTT of 56.6 - 109.0 sec. Performed By: #### 1 [id number] #### [facility] [address] [place] [address] INR Coag (PPP) [Relative time] 1.05 {INR} Invalid Interpretation Code [facility] Comment on above: Result Comment: INR results are specifically intended to assess patients stabilized on long-term Anticoagulation therapy suggested INR?s ?Less Intensive Anticoagulation? 2.0 ? 3.0 Conventional Range 3.0 ? 4.5 Performed By: #### 1 [id number] #### [facility] [address] [place] [address] PT Coag (PPP) [Time] 11.8 second(s) Normal 9.4-12.5 [facility] Comment on above: Result Comment: 15 [...] the same coagulation reagent and instrumentation as [facility]. Currently there are no coagulation studies available worldwide for children to 14 days, and no normal ranges. Performed By: #### 1 [id number] #### [facility] [address] [place] [address] Troponin 0 Hr.on 12-19-2023 Troponin HS 2.70 pg/mL Low 10.10-27.10 [facility] Comment on above: Result Comment: The 95% CI (Confidence Interval) PPV (Positive Predictive Value) for myocardial infarction in females is 38 pg/mL, in males 51 pg/mL. The results should be used in conjunction with clinical conditions of myocardial infarction. (Access High Sensitivity Troponin I Instructions For Use, Dahu, December 2017) Performed By: #### 1 [id number] #### [facility] [address] [place] [address] Troponin 1 Hr.on 12-19-2023 Troponin HS 2.40 pg/mL Low 10.10-27.10 [facility] Comment on above: Order Comment: 1809 Result Comment: The 95% CI (Confidence Interval) PPV (Positive Predictive Value) for myocardial infarction in females is 38 pg/mL, in males 51 pg/mL. The results should be used in conjunction with clinical conditions of myocardial infarction. (Access High Sensitivity Troponin I Instructions For Use, Dahu, December 2017) Performed By: #### 1 [id number] #### [facility] [address] [place] [address] eGFRon 12-19-2023 eGFR 80 mL/min/1.73 m2 Normal >=59 [facility] Comment on above: Order Comment: Order added by Discern Expert. Performed By: #### 1 [id number] #### [facility] [address] [place] [address] MG MAMM DIAGNOSTIC 3D [place] CA Don 04-08-2022 MG MAMM DIAGNOSTIC 3D [place] CAD Patient: NIKKI MARTINS Exam Date: 04/08/2022 : 1980 Gender:F Ordering : KP [facility] Admission #: [id number] Family : Order #: [id number] CLICK HERE TO VIEW EXAM RADIOLOGY REPORT [...] pancreatic cancer at age 55. LOCATION: [facility] BREAST COMPOSITION: Heterogeneously dense,which may [...] MD on 04/08/2022 at 15:21 Normal [facility] US BREAST [place] LIMITEDon 12-0 US BREAST [place] LIMITED Patient: NIKKI MARTINS Exam Date: 04/08/2022 : 1980 Gender:F Ordering : KP [facility] Admission #: [id number] Family : Order #: [id number] CLICK HERE TO VIEW EXAM RADIOLOGY REPORT [...] pancreatic cancer at age 55. LOCATION: [facility] BREAST COMPOSITION: Heterogeneously dense,which may [...] MD on 04/08/2022 at 15:21 Normal [facility] BUNon 03-23-2022 Urea nitrogen [Mass/Vol] 18.0 mg/dL Normal 7.0-18.0 [facility] Comment on above: Performed By: #### B UN, CREA #### [facility] [address] [address] [address] Jackie Bhardwaj CBC AUTO DIFFon 03-23-2022 BASO # 0.0 103/ul Normal 0.0-0.1 [facility] Comment on above: Performed By: #### P TT, PT #### [facility] [address] [place], [place] [address] Dr. Jackie Bhardwaj Basophils/100 WBC (Bld) 0.2 % Normal 0.2-2.0 [facility] Comment on above: Performed By: #### P TT, PT #### [facility] [address] [place] [address] [address] Jackie Bhardwaj EO # 0.1 103/ul Normal 0.0-0.7 [facility] Comment on above: Performed By: #### P TT, PT #### [facility] [address] [place] [address] Dr. Jackie Bhardwaj Eosinophils/100 WBC (Bld) 0.4 % Critically low 0.9-7.0 [facility] Comment on above: Performed By: #### P TT, PT #### [facility] [address] [place] [address] Dr. Jackie Bhardwaj Erythrocyte distribution width (RBC) [Ratio] 12.8 % Normal 11.0-15.0 [facility] Comment on above: Performed By: #### P TT, PT #### [facility] [address] [place] [address] Dr. Jackie Bhardwaj Hematocrit (Bld) [Volume fraction] 30.7 % Critically low 36.0-48.0 [facility] Comment on above: Performed By: #### P TT, PT #### [facility] [address] [place] [address] Dr. Jackie Bhardwaj Hemoglobin (Bld) [Mass/Vol] 10.3 g/dL Critically low 12.0-16.0 [facility] Comment on above: Performed By: #### P TT, PT #### [facility] [address] [place] [address] Dr. Jackie Bhardwaj IG # 0.04 10e3/ul Critically high 0.00-0.03 [facility] Comment on above: Performed By: #### P TT, PT #### [facility] [address] [place] [address] Dr. Jackie Bhardwaj IG % 0.3 % Normal 0.0-0.5 [facility] Comment on above: Performed By: #### P TT, PT #### [facility] [address] [place] [address] Dr. Jackie Bhardwaj LYMPH # 2.7 103/ul Normal 1.2-3.8 [facility] Comment on above: Performed By: #### P TT, PT #### [facility] [address] [place] [address] Dr. Jackie Bhardwaj Lymphocytes/100 WBC (Bld) 21.0 % Normal 20.5-60.0 [facility] Comment on above: Performed By: #### P TT, PT #### [facility] [address] [place] [address] Dr. Jackie Bhardwaj MANUAL DIFF REQ NO Normal [facility] Comment on above: Performed By: #### P TT, PT #### [facility] [address] [place] [address] Dr. Jackie Bhardwaj MCH (RBC) [Entitic mass] 30.7 pg Normal 26.7-34.0 [facility] Comment on above: Performed By: #### P TT, PT #### [facility] [address] [place] [address] Dr. Jackie Bhardwaj MCHC (RBC) [Mass/Vol] 33.6 g/dL Normal 29.9-35.2 [facility] Comment on above: Performed By: #### P TT, PT #### [facility] [address] [place] [address] Dr. Jackie Bhardwaj MCV (RBC) [Entitic vol] 91.6 fL Normal 81.0-99.0 [facility] Comment on above: Performed By: #### P TT, PT #### [facility] [address] [place] [address] Dr. Jackie Bhardwaj MONO # 0.8 103/ul Normal 0.3-0.8 [facility] Comment on above: Performed By: #### P TT, PT #### [facility] [address] [place] [address] Dr. Jackie Bhardwaj Monocytes/100 WBC (Bld) 6.2 % Normal 1.7-12.0 [facility] Comment on above: Performed By: #### P TT, PT #### [facility] [address] [place] [address] Dr. Jackie Bhardwaj NEUT # 9.2 103/ul Critically high 1.4-6.5 [facility] Comment on above: Performed By: #### P TT, PT #### [facility] [address] [place] [address] Dr. Jackie Bhardwaj Neutrophils/100 WBC (Bld) 71.9 % Normal 43.0-75.0 [facility] Comment on above: Performed By: #### P TT, PT #### [facility] [address] [place] [address] Dr. Jackie Bhardwaj Platelet mean volume (Bld) [Entitic vol] 11.2 fL Normal 9.5-13.5 [facility] Comment on above: Performed By: #### P TT, PT #### [facility] [address] [place] [address] Dr. Jackie Bhardwaj PLT 135 103/ul Critically low 150-450 [facility] Comment on above: Performed By: #### P TT, PT #### [facility] [address] [place] [address] Dr. Jackie Bhardwaj RBC 3.35 106/ul Critically low 4.20-5.40 [facility] Comment on above: Performed By: #### P TT, PT #### [facility] [address] [place] [address] Dr. Jackie Bhardwaj WBC 12.8 103/ul Critically high 4.0-11.0 [facility] Comment on above: Performed By: #### P TT, PT #### [facility] [address] [place] [address] Dr. Jackie Bhardwaj CREATININEon 03-23-2022 Creatinine [Mass/Vol] 0.72 mg/dL Normal 0.55-1.02 [facility] Comment on above: Performed By: #### B UN, CREA #### [facility] [address] [place] [address] Dr. Jackie Bhardwaj EGFR-AF MARTINIQUAIS >60 Normal >=60 [facility] Comment on above: Performed By: #### B UN, CREA #### [facility] [address] [place] [address] Dr. Jackie Bhardwaj EGFR-NON AF MARTINIQUAIS >60 Normal >=60 [facility] Comment on above: Performed By: #### B UN, CREA #### [facility] [address] [place] [address] Dr. Jackie Bhardwaj ANTIBODY ID PANELon 03-22-20 22 ANTIBODY ID PANEL Antibody ID Anti-D Blood Bank Notes testing performed at [facility] reference lab Normal [facility] Comment on above: Performed By: #### P TT, PT #### [facility] [address] [place], [place] [address] Dr. Jackie Bhardwaj URon 03-22-2022 , QUAL Negative Normal NEGATIVE [facility] Comment on above: Performed By: #### P TT, PT #### [facility] [address] [place] [address] [address] Jackie Bhardwaj Covid-19 PCR (CVDTB)on 03-09 SARS-CoV-2 (COVID-19) RNA JOHN+probe Ql (Unsp spec) Not detected Normal NOT DETECTED [facility] Comment on above: Result Comment: This test is not yet approved or cleared by the [place] FDA. When there are no FDA-approved or cleared tests available, and other criteria are met, FDA can make tests available under an emergency access mechanism called an Emergency Use Authorization (EUA). The EUA for this test is supported by the Application Support Manager of Health and Human Service's (HHS's) declaration [...] SARS-CoV-2. Performed By: #### C VDTBH #### [facility] [address] [place], [place] [id number] Dr. Jackie Bhardwaj TYPE AND SCREENon 03-18-2022 TYPE AND SCREEN Negative Normal [facility] Comment on above: Performed By: #### P TT, PT #### [facility] [address] [place] [id number] [address] Jackie Bhardwaj LIVER PROFILEon 03-10-2022 Albumin [Mass/Vol] 4.1 g/dL Normal 3.4-5.0 [facility] Comment on above: Performed By: #### Robin MANSFIELD, BMP #### [facility] [address] [place] [address] Dr. Jackie Bhardwaj Albumin/Globulin [Mass ratio] 1.6 {ratio} Normal [facility] Comment on above: Performed By: #### Robin MANSFIELD, BMP #### [facility] [address] [place] [address] [address] Jackie Bhardwaj ALP [Catalytic activity/Vol] 41 U/L Critically low 46-116 [facility] Comment on above: Performed By: #### Robin MANSFIELD, BMP #### [facility] [address] [place] [address] Dr. Jackie Bhardwaj ALT [Catalytic activity/Vol] 16 U/L Normal 14-59 [facility] Comment on above: Performed By: #### Robin MANSFIELD, BMP #### [facility] [address] [place] [address] Dr. Jackie Bhardwaj AST [Catalytic activity/Vol] 14 U/L Critically low 15-37 [facility] Comment on above: Performed By: #### Robin MANSFIELD, BMP #### [facility] [address] [place] [address] Dr. Jackie Bhardwaj BILI, CONJUGATED 0.1 mg/dL Normal 0.0-0.2 [facility] [place] Comment on above: Performed By: #### Robin MANSFIELD, BMP #### [facility] [address] [place] [address] Dr. Jackie Bhardwaj Bilirubin [Mass/Vol] 0.3 mg/dL Normal 0.2-1.0 [facility] Comment on above: Performed By: #### Robin MANSFIELD, BMP #### [facility] [address] [place] [address] Dr. Jackie Bhardwaj Globulin (S) [Mass/Vol] 2.5 g/dL Normal [facility] Comment on above: Performed By: #### Robin MANSFIELD, BMP #### [facility] [address] [place] [address] Dr. Jackie Bhardwaj Protein [Mass/Vol] 6.6 g/dL Normal 6.4-8.2 [facility] Comment on above: Performed By: #### L IVER, BMP #### [facility] [address] [place] [address] Dr. Jackie Bhardwaj PROF CHEM 8 (BAS METB)on Anion gap [Moles/Vol] 11.6 mmol/L Normal [facility] Comment on above: Performed By: #### L IVER, BMP #### [facility] [address] [place] [address] Dr. Jackie Bhardwaj Calcium [Mass/Vol] 8.8 mg/dL Normal 8.5-10.1 [facility] Comment on above: Performed By: #### L IVER, BMP #### [facility] [address] [place] [address] Dr. Jackie Bhardwaj Chloride [Moles/Vol] 102 mmol/L Normal 98-107 [facility] Comment on above: Performed By: #### L IVER, BMP #### [facility] [address] [place] [address] Dr. Jackie Bhardwaj CO2 [Moles/Vol] 28.9 mmol/L Normal 21.0-32.0 [facility] [place] Comment on above: Performed By: #### L IVER, BMP #### [facility] [address] [place] [address] Dr. Jackie Bhardwaj Creatinine [Mass/Vol] 0.78 mg/dL Normal 0.55-1.02 [facility] Comment on above: Performed By: #### L IVER, BMP #### [facility] [address] [place] [address] Dr. Jackie Bhardwaj EGFR-AF MARTINIQUAIS >60 Normal >=60 [facility] Comment on above: Performed By: #### L IVER, BMP #### [facility] [address] [place] [address] Dr. Jackie Bhardwaj EGFR-NON AF MARTINIQUAIS >60 Normal >=60 [facility] Comment on above: Performed By: #### L IVER, BMP #### [facility] [address] [place] [address] [address] Jackie Bhardwaj Glucose [Mass/Vol] 81 mg/dL Normal 74-106 [facility] Comment on above: Performed By: #### L IVER, BMP #### [facility] [address] [place] [address] [address] Jackie Bhardwaj Potassium [Moles/Vol] 3.5 mmol/L Normal 3.5-5.1 [facility] Comment on above: Performed By: #### L IVER, BMP #### [facility] [address] [place] [address] Dr. Jackie Bhardwaj Sodium [Moles/Vol] 139 mmol/L Normal 136-145 [facility] Comment on above: Performed By: #### L IVER, BMP #### [facility] [address] [place] [address] Dr. Jackie Bhardwaj Urea nitrogen [Mass/Vol] 21.0 mg/dL Critically high 7.0-18.0 [facility] Comment on above: Performed By: #### L IVER, BMP #### [facility] [address] [place] [address] Dr. Jackie Bhardwaj Urea nitrogen/Creatinine [Mass ratio] 26.9 mg/mg Normal [facility] Comment on above: Performed By: #### L IVSILVIA, BMP #### [facility] [address] [place] [address] Dr. Jackie Bhardwaj PROTIMEon 03-10-2022 INR Coag (PPP) [Relative time] 0.98 {INR} Normal [facility] Comment on above: Performed By: #### P TT, PT #### [facility] [address] [place] [address] Dr. Jackie Bhardwaj INR GUIDELINES SEE BELOW Normal [facility] Comment on above: Result Comment: BILLY RED INR: 2.0 - 3.0 CONDITIONS NOT LISTED BELOW 2.5 - 3.5 FOR PROSTHETIC HEART VALVE REPLACEMENT 2.5 - 3.5 RECURRENT THROMBOSIS Performed By: #### P TT, PT #### [facility] [address] [place] [address] Dr. Jackie Bhardwaj PT Coag (PPP) [Time] 10.6 s Normal 9.0-11.6 [facility] Comment on above: Performed By: #### P TT, PT #### [facility] [address] [place] [address] Dr. Jackie Bhardwaj PTTon 03-10-2022 aPTT Coag (Bld) [Time] 26.3 s Normal 22.3-36.2 [facility] Comment on above: Performed By: #### P TT, PT #### [facility] [address] [place] [address] Dr. Jackie Bhardwaj CBC AUTO DIFFon 03-09-2022 BASO # 0.1 103/ul Normal 0.0-0.1 [facility] Comment on above: Performed By: #### P TT, PT #### [facility] [address] [place] [address] Dr. Jackie Bhardwaj Basophils/100 WBC (Bld) 0.6 % Normal 0.2-2.0 [facility] Comment on above: Performed By: #### P TT, PT #### [facility] [address] [place] [address] Dr. Jackie Bhardwaj EO # 0.2 103/ul Normal 0.0-0.7 [facility] Comment on above: Performed By: #### P TT, PT #### [facility] [address] [place] [address] Dr. Jackie Bhardwaj Eosinophils/100 WBC (Bld) 1.8 % Normal 0.9-7.0 [facility] Comment on above: Performed By: #### P TT, PT #### [facility] [address] [place] [address] Dr. Jackie Bhardwaj Erythrocyte distribution width (RBC) [Ratio] 12.7 % Normal 11.0-15.0 [facility] Comment on above: Performed By: #### P TT, PT #### [facility] [address] [place] [address] Dr. Jackie Bhardwaj Hematocrit (Bld) [Volume fraction] 39.1 % Normal 36.0-48.0 [facility] Comment on above: Performed By: #### P TT, PT #### [facility] [address] [place] [address] Dr. Jackie Bhardwaj Hemoglobin (Bld) [Mass/Vol] 12.8 g/dL Normal 12.0-16.0 [facility] Comment on above: Performed By: #### P TT, PT #### [facility] [address] [place] [address] Dr. Jackie Bhardwaj IG # 0.03 10e3/ul Normal 0.00-0.03 [facility] Comment on above: Performed By: #### P TT, PT #### [facility] [address] [place] [address] Dr. Jackie Bhardwaj IG % 0.3 % Normal 0.0-0.5 [facility] Comment on above: Performed By: #### P TT, PT #### [facility] [address] [place] [address] Dr. Jackie Bhardawj LYMPH # 3.5 103/ul Normal 1.2-3.8 [facility] Comment on above: Performed By: #### P TT, PT #### [facility] [address] [place] [address] Dr. Jackie Bhardwaj Lymphocytes/100 WBC (Bld) 32.7 % Normal 20.5-60.0 [facility] Comment on above: Performed By: #### P TT, PT #### [facility] [address] [place] [address] Dr. Jackie Bhardwaj MANUAL DIFF REQ NO Normal [facility] Comment on above: Performed By: #### P TT, PT #### [facility] [address] [place] [address] Dr. Jackie Bhardwaj MCH (RBC) [Entitic mass] 30.7 pg Normal 26.7-34.0 [facility] Comment on above: Performed By: #### P TT, PT #### [facility] [address] [place] [address] Dr. Jackie Bhardwaj MCHC (RBC) [Mass/Vol] 32.7 g/dL Normal 29.9-35.2 [facility] Comment on above: Performed By: #### P TT, PT #### [facility] [address] [place] [address] Dr. Jackie Bhardwaj MCV (RBC) [Entitic vol] 93.8 fL Normal 81.0-99.0 [facility] Comment on above: Performed By: #### P TT, PT #### [facility] [address] [place] [address] Dr. Jackie Bhardwaj MONO # 0.7 103/ul Normal 0.3-0.8 [facility] Comment on above: Performed By: #### P TT, PT #### [facility] [address] [place] [address] Dr. Jackie Bhardwaj Monocytes/100 WBC (Bld) 6.3 % Normal 1.7-12.0 [facility] Comment on above: Performed By: #### P TT, PT #### [facility] [address] [place] [address] Dr. Jackie Bhardwaj NEUT # 6.2 103/ul Normal 1.4-6.5 [facility] Comment on above: Performed By: #### P TT, PT #### [facility] [address] [place] [address] Dr. Jackie Bhardwaj Neutrophils/100 WBC (Bld) 58.3 % Normal 43.0-75.0 [facility] Comment on above: Performed By: #### P TT, PT #### [facility] [address] [place] [address] Dr. Jackie Bhardwaj Platelet mean volume (Bld) [Entitic vol] 11.5 fL Normal 9.5-13.5 [facility] Comment on above: Performed By: #### P TT, PT #### [facility] [address] [place] [address] Dr. Jackie Bhardwaj PLT 167 103/ul Normal 150-450 [facility] Comment on above: Performed By: #### P TT, PT #### [facility] [address] [place] [address] Dr. Jackie Bhardwaj RBC 4.17 106/ul Critically low 4.20-5.40 [facility] Comment on above: Performed By: #### P TT, PT #### [facility] [address] [place] [address] Dr. Jackie Bhardwaj WBC 10.6 103/ul Normal 4.0-11.0 [facility] Comment on above: Performed By: #### P TT, PT #### [facility] [address] [place] [address] Dr. Jackie Bhardwaj IRONon 03-09-2022 Iron [Mass/Vol] 73.0 ug/dL Normal 50.0-170.0 [facility] Comment on above: Performed By: #### P TT, PT #### [facility] [address] [place] [address] Dr. Jackie Bhardwaj PREG HCG QUALon 02-01-2022 , QUAL Negative Normal NEGATIVE [facility] Comment on above: Performed By: #### P REG #### [facility] [address] [place] [address] Dr. Jackie Bhardwaj , QUAL Negative Normal NEGATIVE [facility] Comment on above: Result Comment: Prev iously reported as: [id number] On 02/01/2022 06:45 By DM9 Performed By: #### P TT, PT #### [facility] [address] [place] [address] Dr. Jackie Bhardwaj [facility]08 SARS-CoV-2 (COVID-19) RNA JOHN+probe Ql (Unsp spec) Not detected Normal NOT DETECTED [facility] Comment on above: Result Comment: This test is not yet approved or cleared by the [place] FDA. When there are no FDA-approved or cleared tests available, and other criteria are met, FDA can make tests available under an emergency access mechanism called an Emergency Use Authorization (EUA). The EUA for this test is supported by the Application Support Manager of Health and Human Service's (HHS's) declaration [...] SARS-CoV-2. Performed By: #### C VDTBH #### [facility] [address] [place] [address] Dr. Jackie Bhardwaj Covid-19 PCR ([facility])on 12-09 SARS-CoV-2 (COVID-19) RNA JOHN+probe Ql (Unsp spec) Not detected Normal NOT DETECTED [facility] Comment on above: Result Comment: This test is not yet approved or cleared by the [place] FDA. When there are no FDA-approved or cleared tests available, and other criteria are met, FDA can make tests available under an emergency access mechanism called an Emergency Use Authorization (EUA). The EUA for this test is supported by the [place] of Health and Human Service's (HHS's) declaration [...] Performed By: #### P TT, PT #### [facility] [address] [place] [address] [address] [address] Jackie Bhardwaj CBC AUTO DIFFon 12-29-2021 BASO # 0.1 103/ul Normal 0.0-0.1 [facility] Comment on above: Performed By: #### C BC #### [facility] [address] [place] [address] [address] [address] Jackie Bhardwaj Basophils/100 WBC (Bld) 0.4 % Normal 0.2-2.0 [facility] Comment on above: Performed By: #### C BC #### [facility] [address] [place] [address] Dr. Jackie Bhardwaj EO # 0.2 103/ul Normal 0.0-0.7 [facility] Comment on above: Performed By: #### C BC #### [facility] [address] [place] [address] Dr. Jackie Bhardwaj Eosinophils/100 WBC (Bld) 1.6 % Normal 0.9-7.0 [facility] Comment on above: Performed By: #### C BC #### [facility] [address] [place] [address] Dr. Jackie Bhardwaj Erythrocyte distribution width (RBC) [Ratio] 12.9 % Normal 11.0-15.0 [facility] Comment on above: Performed By: #### C BC #### [facility] [address] [place] [address] Dr. Jackie Bhardwaj Hematocrit (Bld) [Volume fraction] 38.5 % Normal 36.0-48.0 [facility] Comment on above: Performed By: #### C BC #### [facility] [address] [place] [address] Dr. Jackie Bhardwaj Hemoglobin (Bld) [Mass/Vol] 12.8 g/dL Normal 12.0-16.0 [facility] Comment on above: Performed By: #### C BC #### [facility] [address] [place] [address] Dr. Jackie Bhardwaj IG # 0.03 10e3/ul Normal 0.00-0.03 [facility] Comment on above: Performed By: #### C BC #### [facility] [address] [place] [address] Dr. Jackie Bhardwaj IG % 0.3 % Normal 0.0-0.5 [facility] Comment on above: Performed By: #### C BC #### [facility] [address] [place] [address] Dr. Jackie Bhardwaj LYMPH # 3.9 103/ul Critically high 1.2-3.8 [facility] Comment on above: Performed By: #### C BC #### [facility] [address] [place] [address] Dr. Jackie Bhardwaj Lymphocytes/100 WBC (Bld) 33.9 % Normal 20.5-60.0 [facility] Comment on above: Performed By: #### C BC #### [facility] [address] [place] [address] Dr. Jackie Bhardwaj MANUAL DIFF REQ NO Normal [facility] Comment on above: Performed By: #### C BC #### [facility] [address] [place] [address] Dr. Jackie Bhardwaj MCH (RBC) [Entitic mass] 31.4 pg Normal 26.7-34.0 [facility] Comment on above: Performed By: #### C BC #### [facility] [address] [place] [address] Dr. Jackie Bhardwaj MCHC (RBC) [Mass/Vol] 33.2 g/dL Normal 29.9-35.2 [facility] Comment on above: Performed By: #### C BC #### [facility] [address] [place] [address] Dr. Jackie Bhardwaj MCV (RBC) [Entitic vol] 94.4 fL Normal 81.0-99.0 [facility] Comment on above: Performed By: #### C BC #### [facility] [address] [place] [address] Dr. Jackie Bhardwaj MONO # 0.7 103/ul Normal 0.3-0.8 [facility] Comment on above: Performed By: #### C BC #### [facility] [address] [place] [address] Dr. Jackie Bhardwaj Monocytes/100 WBC (Bld) 5.8 % Normal 1.7-12.0 [facility] Comment on above: Performed By: #### C BC #### [facility] [address] [place] [address] Dr. Jackie Bhardwaj NEUT # 6.6 103/ul Critically high 1.4-6.5 [facility] Comment on above: Performed By: #### C BC #### [facility] [address] [place], [place] [address] Dr. Jackie Bhardwaj Neutrophils/100 WBC (Bld) 58.0 % Normal 43.0-75.0 [facility] Comment on above: Performed By: #### C BC #### [facility] [address] [place], [place] [address] Dr. Jackie Bhardwaj Platelet mean volume (Bld) [Entitic vol] 11.4 fL Normal 9.5-13.5 [facility] Comment on above: Performed By: #### C BC #### [facility] [address] [place], [place] [address] Dr. Jackie Bhardwaj PLT 168 103/ul Normal 150-450 [facility] Comment on above: Performed By: #### C BC #### [facility] [address] [place] [address] [address] Jackie Bhardwaj RBC 4.08 106/ul Critically low 4.20-5.40 [facility] Comment on above: Performed By: #### C BC #### [facility] [address] [place], [place] [address] Dr. Jackie Bhardwaj WBC 11.4 103/ul Critically high 4.0-11.0 [facility] [place] Comment on above: Performed By: #### C BC #### [facility] [address] [place], [place] [address] Dr. Jackie Bhardwaj IRONon 12-29-2021 Iron [Mass/Vol] 41.0 ug/dL Critically low 50.0-170.0 [facility] Comment on above: Performed By: #### P TT, PT #### [facility] [address] [address] [address] Jackie Bhardwaj US VAC ASST BX BRST LT W CLI Jaya 10-02-2021 US VAC ASST BX BRST LT W CLIP Begin Addendum #1 COLLECTED DATE/TIME: 09/22/2021 09:43 EDT Final Diagnosis Report for [place] ULTRASOUND GUIDED CORE BIOPSY, LEFT BREAST LESION 4 O'CLOCK: -BENIGN BREAST CYST WITH APOCRINE METAPLASIA. 09/24/2021 faxed to Cyndi Epperson CNP. Verified with Gemma that report was present in office. Original Report PROCEDURE: ULTRASOUND BIOPSY VACCUUM ASSISTED LEFT WITH CLIP COMPARISON: US BREAST VALENTNIA LIMITED, 09/17/2021. INDICATIONS: Abnormal findings on diagnostic [...] provided after pathology results are available. Normal [facility] MAMMO POST BIOPSY LEFTon MAMMO POST BIOPSY LEFT Patient: NIKKI MARTINS Exam Date: 09/22/2021 : 1980 Gender:F Ordering : KP EPPERSNO [employer] Admission #: [id number] Family : Order #: [id number] CLICK HERE TO VIEW EXAM RADIOLOGY REPORT PROCEDURE: MAMMOGRAM POST BIOPSY IMAGES COMPARISON: MAMM VALENTINA DIAG FU, 09/17/2021. INDICATIONS: Mammography abnormal BREAST COMPOSITION: FINDINGS: BIOPSY MARKER: A metallic marker has been placed in the targeted location within the lower-outer quadrant of the left breast. BREAST FINDINGS: Expected post biopsy findings. RECOMMENDATIONS: Dictated by: Ramya Nielsen M.D. on 09/22/2021 at 10:13 Approved by: Ramya Nielsen M.D. on 09/22/2021 at 10:14 Normal [facility] Vital Signs Date Time Vital Sign Value Performing Clinician Facility 02-22-2024 15:04-0400 Body height 171.5 cm Cyndi Epperson [employer] Work Phone: [facility] 02-22-2024 15:04-0400 Body mass index (BMI) [Ratio] 19.91 kg/m2 Cyndi Philipholz [employer] Work Phone: [facility] 02-22-2024 15:04-0400 Body temperature 99.39 [degF] Cyndiedward Philipholz [employer] Work Phone: [facility] 02-22-2024 15:04-0400 Body weight 58.51 kg Cyndiedward Mariscalhholz [employer] Work Phone: [facility] 02-22-2024 15:04-0400 Diastolic blood pressure 86 mm[Hg] Cyndi Daveyhholz [employer] Work Phone: [facility] 02-22-2024 15:04-0400 Heart rate 73 /min Cyndi Daveyhholz [employer] Work Phone: [facility] 02-22-2024 15:04-0400 Respiratory rate 18 /min Cyndi Daveyhholz [employer] Work Phone: [facility] 02-22-2024 15:04-0400 SaO2% (BldA) [Mass fraction] 100 % Cydni Tameraholz [employer] Work Phone: [facility] 02-22-2024 15:04-0400 Systolic blood pressure 130 mm[Hg] Cyndi Daveyhholz [employer] Work Phone: [facility] 12-19-2023 23:00-0400 Diastolic blood pressure 91 mm[Hg] Reza Bedoya [facility] 12-19-2023 23:00-0400 Heart rate 63 /min Reza Bedoya [facility] 12-19-2023 23:00-0400 Hourly Rounding Reza Bedoya [facility] 12-19-2023 23:00-0400 Mean blood pressure 107 mm[Hg] Reza Bedoya [facility] 12-19-2023 23:00-0400 Promise to Return Reza Bedoya [facility] 12-19-2023 23:00-0400 SaO2% (BldA) [Mass fraction] 100 % Reza Aureliano [facility] 12-19-2023 23:00-0400 Systolic blood pressure 140 mm[Hg] Reza Aureliano [facility] 12-19-2023 22:00-0400 Diastolic blood pressure 87 mm[Hg] Reza Aureliano [facility] 12-19-2023 22:00-0400 Heart rate 64 /min Reza Aureliano [facility] 12-19-2023 22:00-0400 Hourly Rounding Reza Aureliano [facility] 12-19-2023 22:00-0400 Mean blood pressure 100 mm[Hg] Reza Aureliano [facility] 12-19-2023 22:00-0400 Promise to Return Reza Aureliano [facility] 12-19-2023 22:00-0400 Systolic blood pressure 127 mm[Hg] Reza Aureliano [facility] 12-19-2023 21:00-0400 Diastolic blood pressure 86 mm[Hg] Reza Aureliano [facility] 12-19-2023 21:00-0400 Heart rate 58 /min Reza Aureliano [facility] 12-19-2023 21:00-0400 Hourly Rounding Reza Aureliano [facility] 12-19-2023 21:00-0400 Mean blood pressure 104 mm[Hg] Reza Aureliano [facility] 12-19-2023 21:00-0400 Promise to Return Reza Aureliano [facility] 12-19-2023 21:00-0400 SaO2% (BldA) [Mass fraction] 99 % Reza Bedoya [facility] 12-19-2023 16:05-0400 Body temperature 98.24 [degF] Reza Bedoya [facility] 12-19-2023 16:05-0400 Heart rate 84 /min Reza Bedoya [facility] 12-19-2023 16:05-0400 Respiratory rate 18 /min Reza Bedoya [facility] Encounters Encounter Date Encounter Type Care Provider Facility Start: 04-19-2024 ambulatory Booker Shelley Facility:[facility] Start: 03-02-2024 End: 03-02-2024 ambulatory SELF Facility:[facility] Start: 03-01-2024 End: 03-01-2024 Orders Only Cyndi Epperson [employer] Work Phone: [facility] Comment on above: Elevated antinuclear antibody (SERA) level (Primary Dx) Start: 02-29-2024 End: 02-29-[address] [facility] Start: 02-22-2024 End: 02-22-2024 Office outpatient visit 25 minutes Cyndi Epperson [employer] Work Phone: [facility] Comment on above: Pain of upper abdome n (Primary Dx); Enlarged liver; Panic attack (CMS/HCC); Chest tightness Start: 02-22-2024 End: 02-22-2024 ambulatory CYNDI EPPERSON Not Available Start: 02-22-2024 End: 02-22-2024 Clinisync Result Encounter Cyndi Epperson [employer] Work Phone: [facility] Unsolicited Start: 02-22-2024 End: 02-22-2024 Clinisync Result Encounter Cyndi Epperson [employer] Work Phone: [facility] Unsolicited Start: 02-07-2024 End: 02-07-2024 ambulatory Booker Shelley Facility:[facility] Start: 02-07-2024 End: 02-07-2024 Patient encounter procedure Booker Shelley [facility] Start: 01-19-2024 End: 01-19-2024 ambulatory Booker Shelley Facility:[facility] Start: 01-11-2024 End: 01-11-2024 ambulatory CYNDI AICPerfectoHOLZ Not Available Start: 01-10-2024 End: 01-10-2024 ambulatory Samuel Deepthi [facility] Work Phone: Start: 01-10-2024 End: 01-10-2024 Departed Referred DO Samuel Deepthi Work Phone: [facility] Start: 12-26-2023 End: 12-26-2023 ambulatory SAMUEL LACEY Not Available Start: 12-22-2023 End: 12-22-2023 ambulatory CYNDI AICHHOLZ Not Available Start: 12-20-2023 ambulatory Reza Bedoya [email or web address] Start: 12-19-2023 End: 12-19-2023 Emergency department patient visit Reza Bedoya [facility] Start: 12-19-2023 ambulatory Reza Bedoya Facility:[facility] Start: 09-17-2022 End: 09-17-[address] WILDER OWENS . Facility:[facility] Start: 04-08-2022 End: 04-09-[address] MIKE JEAN Facility:[facility] Start: 03-22-2022 Encounter for preprocedural laboratory examination DR WILDER OWENS . [facility] Start: 03-22-2022 End: 03-23-2022 Evaluation and management of inpatient DR WILDER OWENS . Facility:[facility] Start: 03-18-2022 End: 03-19-[address] WILDER OWENS . Facility:[facility] Start: 03-18-2022 End: 03-19-2022 Encounter for preprocedural laboratory examination DR WILDER OWENS . Facility:[facility] Start: 03-10-2022 End: 03-11-[address] WILDER OWENS . Facility:[facility] Start: 03-09-2022 End: 03-10-2022 ambulatory [employer] CYNDI AICHHOLZ Facility:[facility] Start: 02-01-2022 End: 02-01-[address] WILDER OWENS . Facility:[facility] Start: 01-28-2022 ambulatory [employer] CYNDI AICHHOLZ Facil ity:[facility] Start: 01-27-2022 End: 01-28-[address] WILDER OWENS . Facility:[facility] Start: 01-05-2022 End: 01-05-2022 ambulatory [employer] CYNDI AICHHOLZ Facility:[facility] Start: 12-29-2021 End: 12-30-2021 ambulatory [employer] CYNDI AICHHOLZ Facility:[facility] Start: 11-02-2021 ambulatory [employer] CYNDI AICHHOLZ Facil ity:[facility] Start: 10-29-2021 ambulatory [employer] CYNDI AICHHOLZ Facil ity:[facility] Start: 09-22-2021 End: 09-22-2021 ambulatory [employer] CYNDI AICHHOLZ Facility:[facility] Procedures Date Procedure Procedure Detail Performing Clinician Start: 02-22-2024 ALL AMYLASE Cyndi Aichholz [employer] Work Phone: Start: 02-22-2024 ALL C REACTIVE PROTEIN Cyndi Aichholz [employer] Work Phone: Start: 02-22-2024 ALL SED RATE Cyndi Aichholz [employer] Work Phone: Start: 02-22-2024 CCF LIPASE Cyndi Aichholz [employer] Work Phone: Start: 01-30-2024 Mammography Cyndi Aichholz [employer] Work Phone: Start: 01-10-2024 Colonoscopy Cyndi Aichholz [employer] Work Phone: Start: 01-10-2024 Colonoscopy Booker Chungi Start: 01-10-2024 Esophagogastroduodenoscopic electrohydraulic lithotripsy of bezoar in stomach Booker Shelley Comment on above: Ana Start: 03-22-2022 Resection of Bilateral Fallopian Tubes, Via Natural or Artificial Opening KP FROSTA ZEENAT Start: 03-22-2022 Resection of Uterus, Via Natural or Artificial Opening KP EPPERSON Resection of Bilater al Fallopian Tubes, Via Natural or Artificial Opening Booker Shelley Resection of Uterus, Via Natural or Artificial Opening [place] Plan of Treatment Date Care Activity Detail Author Start: 01-09-2034 Screening for malignant neoplasm of colon [facility] Start: 01-29-2025 Screening for malignant neoplasm of breast Mammogram [facility] Start: 03-28-2024 End: 03-28-2024 Patient encounter procedure 03/28/2024 8:40 AM EST Office Visit [facility] [address] [place] [address] Cyndi Epperson, SURINDER [address] [place] [id number] [facility] Start: 02-22-2024 End: 02-21-2025 Amylase [Enzymatic activity/volume] in Serum or Plasma Amylase Lab Routine Pain of upper abdomen Expected: 02/22/2024 (Approximate), Expires: 02/21/2025 [facility] Comment on above: Expected: 02/22/2024 (Approximate), Expi res: 02/21/2025 Start: 02-22-2024 End: 02-21-2025 Antistreptolysin O titer Antistreptolysin O titer Lab Routine Pain of upper abdomen Enlarged liver Expected: 02/22/2024 (Approximate), Expires: 02/21/2025 [facility] Comment on above: Expected: 02/22/2024 (Approximate), Expi res: 02/21/2025 Start: 02-22-2024 End: 02-21-2025 C reactive protein [Mass/volume] in Serum or Plasma C-reactive protein Lab Routine Pain of upper abdomen Enlarged liver Expected: 02/22/2024 (Approximate), Expires: 02/21/2025 [facility] Comment on above: Expected: 02/22/2024 (Approximate), Expi res: 02/21/2025 Start: 02-22-2024 End: 02-21-2025 Erythrocyte sedimentation rate Sedimentation rate, automated Lab Routine Pain of upper abdomen Enlarged liver Expected: 02/22/2024 (Approximate), Expires: 02/21/2025 [facility] Work Phone: Comment on above: Expected: 02/22/2024 (Approximate), Expi res: 02/21/2025 Start: 02-22-2024 End: 02-21-2025 Lipase [Enzymatic activity/volume] in Serum or Plasma Lipase Lab Routine Pain of upper abdomen Expected: 02/22/2024 (Approximate), Expires: 02/21/2025 [facility] Comment on above: Expected: 02/22/2024 (Approximate), Expi res: 02/21/2025 Start: 02-22-2024 End: 02-21-2025 Nuclear Ab [Titer] in Serum by Immunofluorescence SERA Lab Routine Pain of upper abdomen Enlarged liver Expected: 02/22/2024 (Approximate), Expires: 02/21/2025 [facility] Comment on above: Expected: 02/22/2024 (Approximate), Expi res: 02/21/2025 Start: 2008 Screening for malignant neoplasm of cervix HPV/Cotest [facility] Start: 11-23-1999 Screening for malignant neoplasm of cervix Pap Smear [facility] Start: 1978 Screening for malignant neoplasm of colon [facility] Immunizations Immunization Date Immunization Notes Care Provider Fa cility 03-25-2021 SARS-CoV-2 (COVID-19 ) mRNA BNT-162b2 mandeep Shelley [facility] 03-04-2021 SARS-CoV-2 (COVID-19 ) mRNA BNT-162b2 hollyx Booker Shelley [facility] 06-01-2013 influenza virus vaccine, unspecified formulation Celeste Sarmini [facility] 06-01-2013 influenza, seasonal, injectable Cyndi Zeenat CADENA Work Phone: [facility] 09-14-2012 tetanus toxoid, redu hollie diphtheria toxoid, and acellular pertussis vaccine, adsorbed Celeste Sarmini [facility] Payers Date Payer Category Payer Self-pay [id number] 2023 Private Health Insurance [facility] ..[id number] 1978 Unknown [id number] 840.1.365488.3.579 .2 1978 Unknown [id number] 840.1.749835.3.579 .2 1978 Unknown [id number] 840.1.407232.3.579 .2 1978 Unknown [id number] 840.1.815962.3.579 .2. 1978 Unknown [id number] 840.1.877888.3.579 .2. 1978 Unknown [id number] 2840.1.125250.3.579 .2. 1978 Unknown [id number] 2.16.840.1.594931.3.579 .2.59 1978 Unknown [id number] 2.16.840.1.887762.3.579 .259 1978 Unknown [id number] 2.16.840.1.393103.3.579 .259 1978 Unknown [id number] 2.16.840.1.640360.3.579 .259 1978 Unknown [id number] 2.16.840.1.133335.3.579 .259 1978 Unknown [id number] 2.16.840.1.958787.3.579 .259 1978 Unknown [id number] 2.16.840.1.289147.3.579 .259 1978 Unknown [id number] 2..840.1.821606.3.579 .259 1978 Unknown [id number] 2.16.840.1.842160.3.579 .259 1978 Unknown [id number] 2.16.840.1.913005.3.579 .272 1978 Unknown [id number] 2.16.840.1.391995.3.579 .272 1978 Unknown [id number] 2.16.840.1.597279.3.579 .272 1978 Unknown [id number] 2.16.840.1.442548.3.579 .272 1978 Unknown [id number] 2.16.840.1.868153.3.579 .272 1978 Unknown [id number] 2.16.840.1.427760.3.579 .272 1978 Unknown [id number] 2.16.840.1.779050.3.579 .272 1978 Unknown [id number] 2.16.840.1.776187.3.579 .2.727 1978 Unknown [id number] 2.16.840.1.427668.3.579 .2.727 1978 Unknown [id number] 2.16.840.1.162969.3.579 .2.1258 1978 Unknown [id number] 2.16.840.1.527093.3.579 .2.1258 1978 Unknown [id number] 2.16.840.1.547363.3.579 .2.1258 1978 Unknown [id number] 2.16.840.1.418547.3.579 .2.1259 1959 Unknown [id number] 1959 Unknown [id number] Unknown Lakshmi BC/BS [id number] Unknown [id number] 2.16.840.1.345104.3.579 .2.531 Social History Date Type Detail Facility Tobacco smoking status [facility] Start: 02-22-2024 Sex Assigned At Female [facility] Start: 1980 Sex Assigned At Female [facility] Start: 01-19-2024 Tobacco smoking status Never smoked tobacco (finding) [facility] Tobacco smoking status Never [facility] Start: 12-22-2023 Tobacco smoking status NHIS Ex-smoker [facility] End: 05-09-2020 History of tobacco use Current smoker [facility] End: 05-09-2020 History of tobacco use Cigarette Smoker [facility] Start: 12-22-2023 Tobacco use and exposure Smokeless tobacco non-user [facility] Start: 02-22-2024 Alcoholic beverage intake Ex-drinker (finding) [facility] Start: 02-22-2024 History of Social function [facility] Start: 12-22-2023 Alcohol Comment caffine: 1 cup of coffee daily [facility] Start: 12-22-2023 Gender identity Identifies as female gender (finding) [facility] Start: 12-22-2023 Sexual orientation Heterosexual (finding) [facility] Functional Status Date Assessment Result Facility 12-19-2023 Functional Status N/A [facility] Clinical Notes 12-19-2023 to 02-29-2024 Cyndi Epperson, SURINDER - 02/22/2024 4:27 PM Davin Epperson, SURINDER - 02/22/2024 4:26 PM Davin Epperson, DYNAMITE SHOOTER - 02/22/2024 4:25 PM Davin Epperson, DYNAMITE SHOOTER - 02/22/2024 3:00 PM EDTLaboratory Note Date & Type Note Facility 02-29-2024 Note Subjective Patient ID: Nikki Martins is a 43 y.o. female. 43-year-old woman who complains of epigastric discomfort that appears to radiate to her left side and anorexia. She reports weight loss of approximately 15 pounds since the symptoms began in October or November. She has undergone extensive evaluation which has included a normal HIDA scan, normal abdominal ultrasound, normal gastric emptying study, normal EGD, and normal colonoscopy. She was told that she has a hiatal hernia. Briefly, she says that her symptoms began in October or November shortly after a camping trip to [place] with her boyfriend who apparently has similar symptoms. She was in [place] for 2 days continuing and swimming. She denies any fresh water consumption. She says since that time she has had epigastric discomfort and bloating and decreased appetite. She says she has lost approximately 15 pounds. She says that she is mostly eating boost and Ensure. She is planning on going to [facility] 02 March for continued evaluation. Currently, she denies fever, chills, night sweats, chest pain, shortness of breath, myalgia, arthralgia, joint swelling, rash. She denies hematochezia. She denies hematuria. She says she has had hair loss. Qsubvlptp-mwrxszybqv-azliy Past medical history/past surgical history-endometriosis, G3, P4, tonsils, tota hysterectomy 2021 Social history-lives in [place], works at [employer], rare alcohol, quit smoking 3 years ago, no travel outside of the country Review of Systems Constitutional: Negative for chills, fatigue and fever. Respiratory: Negative for cough and shortness of breath. Cardiovascular: Negative for chest pain and leg swelling. Gastrointestinal: Negative for abdominal pain, diarrhea, nausea and vomiting. Genitourinary: Negative for difficulty urinating and hematuria. Musculoskeletal: Negative for arthralgias and joint swelling. Skin: Negative for rash. Neurological: Negative for light-headedness and headaches. Objective Physical Exam Vitals reviewed. Constitutional: Appearance: Normal appearance. HENT: Head: Normocephalic. Mouth/Throat: Mouth: Mucous membranes are moist. Pharynx: No oropharyngeal exudate or posterior oropharyngeal erythema. Eyes: General: No scleral icterus. Extraocular Movements: Extraocular movements intact. Pupils: Pupils are equal, round, and reactive to light. Cardiovascular: Rate and Rhythm: Normal rate and regular rhythm. Heart sounds: No murmur heard. Pulmonary: Effort: Pulmonary effort is normal. Breath sounds: Normal breath sounds. Abdominal: General: Abdomen is flat. Bowel sounds are normal. There is no distension. Palpations: Abdomen is soft. There is no mass. Tenderness: There is no abdominal tenderness. There is no right CVA tenderness or left CVA tenderness. Musculoskeletal: Cervical back: No rigidity. Right lower leg: No edema. Left lower leg: No edema. Lymphadenopathy: Cervical: No cervical adenopathy. Skin: Capillary Refill: Capillary refill takes less than 2 seconds. Coloration: Skin is not jaundiced. Findings: No rash. Neurological: General: No focal deficit present. Mental Status: She is alert and oriented to person, place, and time. Psychiatric: Mood and Affect: Mood normal. Laboratory: No results found for: AST , ALT , ALBUMIN , PROT No results found for: HEPBSAG , HEPBSAB , HEPBCAB 1. Epigastric pain Assessment/Plan 43 y.o. female with several months of epigastric discomfort and bloating and weight loss. I did an outside hospital she has had significant workup which includes normal HIDA scan, normal abdominal ultrasound, normal gastric emptying study, normal EGD and normal colonoscopy. THe differential diagnosis includes: 1. Gastroesophageal Reflux Disease (GERD) 2. Gastritis or Peptic Ulcer Disease (PUD). 3. Giardiasis. Less likely would be Cryptosporidium 4. Pancreatitis- unlikely 5. Cardiac (less likely). Overall, among the infectious disease causes, Giardia is possible. Plan: She should follow-up with gastroenterology I will call the patient and ask her to produce a stool specimen for enteric and parasite DNA. I will check her thyroid [facility] 02-22-2024 History of Present illness Narrative Associated Problem(s): Chest tightness Reviewed CT chest and labs ?GI source, anxiety?? Associated Problem(s): Panic attack (CMS/HCC) Cause of chest pain?? Associated Problem(s): Pain of upper abdomen Cont with GI Check amylase and lipase Fu in 4 weeks Images from the original note were not included. Nikki Martins is a 43 y.o. female presents with chief complaint of No chief complaint on file. HPI: Epigastric: constant pain, burning, pressure, if eating pain pressure worsens, and pain starts shooting to left side. No relationship to certain types of food, is not eating greasy foods, spicy foods, caffeine . +nausea (zofran prn meals) ordered from GI At work does a lot of twisting/bending/pushing which she does think is worse. ER last night: feeling off, head feeling foggy, chest tightness, middle of chest shooting into neck. She reports that it feels like her pills are getting stuck when she swallows, not Has had an EGD/Colonosocpy, gastric emptying study normal, has appt with [facility] on 03/02/24 to look at blood supply of stomac\[ SUBJECTIVE: MEDICATIONS: Current Outpatient Medications Medication Instructions amitriptyline (ELAVIL) 25 mg, Nightly dicyclomine (BENTYL) 10 mg, Oral, Every 8 hours PRN omeprazole (PRILOSEC) 20 mg, Oral, Daily before breakfast, Do not crush or chew. ondansetron ODT (ZOFRAN-ODT) 4 mg, Every 8 hours PRN traMADol (ULTRAM) 50 mg, Every 6 hours PRN ALLERGIES: Allergies Allergen Reactions Amoxicillin Hives Percocet [Oxycodone-Acetaminophen] GI intolerance Nausea, vomiting, and dizziness Penicillin G Rash REVIEW OF SYMPTOMS: Review of Systems Constitutional: Negative for appetite change, chills and fever. HENT: Negative for congestion, ear pain and sore throat. Eyes: Negative for pain, discharge, redness and visual disturbance. Respiratory: Negative for cough, shortness of breath and wheezing. Cardiovascular: Positive for chest pain. Negative for palpitations and leg swelling. Gastrointestinal: Positive for abdominal pain (epigstric) and nausea. Negative for blood in stool, constipation, diarrhea and vomiting. Genitourinary: Negative for difficulty urinating, dysuria and frequency. Musculoskeletal: Negative for arthralgias, back pain, joint swelling and myalgias. Skin: Negative for rash and wound. Neurological: Negative for dizziness, tremors, seizures, syncope and headaches. Psychiatric/Behavioral: Negative for behavioral problems, self-injury and suicidal ideas. The patient is nervous/anxious. Hematological: Does not bruise/bleed easily. Endocrine: Negative for polydipsia, polyphagia and polyuria. Allergic/Immunologic: Negative for environmental allergies and food allergies. PAST MEDICAL HISTORY No past medical history on file. Past Surgical History: Procedure Laterality Date HYSTERECTOMY 03/2022 family history includes Cancer in her mother; Diabetes in her brother; Mental illness in her brother. OBJECTIVE: Visit Vitals BP 130/86 (BP Location: Left arm, Patient Position: Sitting, BP Cuff Size: Adult long) Pulse 73 Temp 99.4 F (Temporal) Resp 18 Ht 5' 7.5 Wt 129 lb SpO2 100% BMI 19.91 kg/m Smoking Status Former BSA 1.67 m Physical Exam Vitals and nursing note reviewed. Constitutional: General: She is not in acute distress. Appearance: Normal appearance. HENT: Head: Normocephalic and atraumatic. Right Ear: External ear normal. Left Ear: External ear normal. Nose: Nose normal. Mouth/Throat: Mouth: Mucous membranes are moist. Eyes: Extraocular Movements: Extraocular movements intact. Conjunctiva/sclera: Conjunctivae normal. Cardiovascular: Rate and Rhythm: Normal rate and regular rhythm. Pulses: Normal pulses. Heart sounds: Normal heart sounds. Pulmonary: Effort: Pulmonary effort is normal. Breath sounds: Normal breath sounds. Abdominal: General: Bowel sounds are normal. There is no distension. Palpations: Abdomen is soft. There is no mass. Tenderness: There is no abdominal tenderness (epigastric). Musculoskeletal: General: No tenderness. Normal range of motion. Cervical back: Normal range of motion and neck supple. Right lower leg: No edema. Left lower leg: No edema. Lymphadenopathy: Cervical: No cervical adenopathy. Skin: General: Skin is warm and dry. Capillary Refill: Capillary refill takes 2 to 3 seconds. Findings: No rash. Neurological: General: No focal deficit present. Mental Status: She is alert and oriented to person, place, and time. Psychiatric: Mood and Affect: Mood normal. Behavior: Behavior normal. Thought Content: Thought content normal. Judgment: Judgment normal. ASSESSMENT AND PLAN: No follow-ups on file. Problem List Items Addressed This Visit Pain of upper abdomen - Primary Cont with GI Check amylase and lipase Fu in 4 weeks Relevant Orders Sedimentation rate, automated C-reactive protein SERA Antistreptolysin O titer Amylase Lipase Panic attack (CMS/HCC) Cause of chest pain?? Enlarged liver Relevant Orders Sedimentation rate, automated C-reactive protein SERA Antistreptolysin O titer Chest tightness Reviewed CT chest and labs ?GI source, anxiety?? documented in this encounter [facility] 12-20-2023 Note Progress Note-Nurse Patient called requesting Carmelita after yesterdays visit. Sent to pharmacy per BING Bhakta [facility] 12-20-2023 Hospital Discharge instructions Patient Education 12/19/2023 23:16:40 Hepatomegaly, Zwul-gh-Nlra Hepatomegaly Hepatomegaly is when the liver is [...] asked to do the following: Medicines Take aqrv-rgs-oozenjr and prescription medicines only as told by your doctor. Do not take any new medicine unless your doctor says it is okay. ?This includes vitamins, herbs, supplements, and ibqd-oip-zeawsji medicines. Some of these can hurt your [...] provider. Document Revised: 03/24/2022 Document Reviewed: 03/24/2022 [employer] Patient Education 2022 [employer]. 12/19/2023 23:16:40 Abdominal Pain, Adult Abdominal Pain, [...] Follow these instructions at home: Medicines Take ffin-gif-uaeymmx and prescription medicines only as told by [...] Watch your condition for any changes. Take llxm-jfg-kizwcmm and prescription medicines only as told by [...] provider. Document Revised: 06/13/2020 Document Reviewed: 09/03/2019 [employer] Patient Education 2022 [employer]. Follow Up Care 12/19/2023 16:03:37 With:Booker Shelley Address: [address] [place] [address], [facility] [address] [phone] Business (1) When:12/22/2023 With:CYNDI EPPERSON Address: [address] [place] [phone] Business (1) When:Within 3 Day(s) [facility] 12-19-2023 Note ED Patient Education Note Gastroenterology [...] to do the following: Medicines ? Take wkgu-tct-jxmjgvo and prescription medicines only as told by your doctor. ? Do not take any new medicine unless your doctor says it is okay. ? This includes vitamins, herbs, supplements, and vziz-ubs-lnpgxvf medicines. Some of these can hurt your [...] provider. Document Revised: 03/24/2022 Document Reviewed: 03/24/2022 [employer] Patient Education ? 2022 [employer] Abdominal Pain, Adult Pain in the [...] these instructions at home: Medicines ? Take htou-xhr-coboinp and prescription medicines only as told by [...] tar. ? You (more content not included)... [facility] Evaluation + Plan note No data available for this section [facility] Evaluation + Plan note Future Appointments Appointment Date:04/19/2024 02:45:00 PM Scheduled Provider:Booker Shelley MD Location:[facility] Appointment Type:[facility] Follow Up Future Scheduled TestsH. pylori Breath Test 01/19/24 [facility] Evaluation note No assessment inform ation [facility] Work Phone: Evaluation note Diagnosis Pain of upper abdomen- Primary Enlarged liver Hepatomegaly Encounter for screening mammogram for malignant neoplasm of breast- Primary Pain of upper abdomen Pain of upper abdomen- Primary Enlarged liver Hepatomegaly Panic attack (CMS/HCC) Panic disorder without agoraphobia Chest tightness Other chest pain documented in this encounter [facility] HealthcareEvaluation note* Diagnosis Pain of upper abdomen- Primary Enlarged liver Hepatomegaly Encounter for screening mammogram for malignant neoplasm of breast- Primary Pain of upper abdomen Pain of upper abdomen- Primary Enlarged liver Hepatomegaly Panic attack (CMS/HCC) Panic disorder without agoraphobia Chest tightness Other chest pain Elevated antinuclear antibody (SERA) level- Primary Other and unspecified nonspecific immunological findings [facility] No data available for this section [facility] Progress note No data available for this section [facility] Summary Purpose Family History No Family [...] and content) DATE CREATED AUTHOR 09/20/2022 [facility] DATE CREATED AUTHOR AUTHOR'S ORGANIZ ATION 12/20/2023 [facility] DATE CREATED AUTHOR AUTHOR'S ORGANIZ ATION 12/21/2023 [facility] DATE CREATED AUTHOR AUTHOR'S ORGANIZ ATION 01/21/2024 [facility] DATE CREATED AUTHOR AUTHOR'S ORGANIZ ATION 02/14/2024 [facility] DATE CREATED AUTHOR AUTHOR'S ORGANIZ ATION 02/16/2024 [facility] DATE CREATED AUTHOR AUTHOR'S ORGANIZ ATION 02/25/20[address] [facility] DATE CREATED AUTHOR AUTHOR'S ORGANIZ ATION 03/03/2024 [facility] DATE CREATED AUTHOR AUTHOR'S ORGANIZ ATION 03/04/2024 [facility] Patient Care team informatio n (unrecognized section and content) Team Status: Inactive Member Role Status Dates Samuel Lacey DO Attending Provider Active Star t: January 10, 2024 End: January 10, 2024 Bottom Man Relationship Specialty Start Date End Date Rogelio Brown MD [address] [place] [phone] PCP - General Family Medicine 12/12/23 Cyndi Epperson NP [address] [place] [phone] Nurse Practitioner Family Medicine 12/12/23 Bottom Man Relationship Specialty Start Date End Date Rogelio Brown MD [address] [place] [phone] PCP - General Family Medicine 12/12/23 Cyndi Epperson NP [address] [place] [phone] Nurse Practitioner Family Medicine 12/12/23 Bottom Man Relationship Specialty Start Date End Date Rogelio Brown MD [address] [place] [phone] PCP - General Family Medicine 12/12/23 Cyndi Epperson NP [address] [place] [phone] Nurse Practitioner Family Medicine 12/12/23 Goals (unrecognized section and content) Goals may [...] BE BASED ON THE PRIMARY CLINICAL RECORDS. [facility] provides no warranty or guarantee of the accuracy or completeness of information in this document.
--- NOTE | 2024-03-06 07:41 | ED.ABDPAIN1 ---
HPI - Abdominal Pain General Chief Complaint: Abdominal Pain Stated Complaint: ABDOMINAL PAIN Time Seen by Provider: 03/06/24 07:41 Source: patient and family Mode of arrival: walk-in Limitations: no limitations History of Present Illness HPI narrative: Patient appears with abdominal pain. I have reviewed previous records which are quite extensive and I have also interviewed the patient. She is complaining of discomfort in the epigastric area and sometimes it goes to the right upper quadrant. She has not had a cholecystectomy but she has had numerous ultrasounds and HIDA scans, all of which are negative. She is not running a fever. No change in bowel movements. She has not had any urinary symptomatology. She has been taking Bentyl as well as a proton pump inhibitor. She has had recent endoscopy. She has been to the [facility] for other ultrasound studies. Her primary care doctor is working her up for possible autoimmune disease and she does have some test results that suggest this could be an etiology. She is not on any other analgesics. Related Data Home Medications ?Medication ?Instructions ?Recorded ?Confirmed omeprazole 20 mg capsule,delayed 20 mg PO DAILY 12/30/23 02/21/24 release ondansetron 4 mg disintegrating 4 mg PO Q8H PRN nausea and vomiting 12/30/23 02/21/24 tablet amitriptyline 25 mg tablet mg 02/21/24 dicyclomine 10 mg capsule 10 mg PO TID 03/06/24 03/06/24 ondansetron HCl 4 mg tablet 4 mg PO Q8H PRN nausea and vomiting 03/06/24 03/06/24 Previous Rx's ?Medication ?Instructions ?Recorded sucralfate 1 gram tablet (Carafate) 1 g PO Q6H PRN abdominal pain #12 02/21/24 tabs Allergies Allergy/AdvReac Type Severity Reaction Status Date / Time amoxicillin Allergy Intermediate Hives Verified 03/06/24 07:03 penicillin G Allergy Unknown Rash Verified 03/06/24 07:03 Opioids - Morphine Analogues AdvReac Intermediate Vomiting Verified 03/06/24 07:03 [facility] Medical History (Updated 03/06/24 @ 08:30 by Marcos Boswell MD) Dysphagia ?R13.10 - Dysphagia, unspecified (ICD-10) GERD (gastroesophageal reflux disease) ?K21.9 - Gastro-esophageal reflux disease without esophagitis (ICD-10) Hepatomegaly ?R16.0 - Hepatomegaly, not elsewhere classified (ICD-10) Abdominal pain ?R10.9 - Unspecified abdominal pain (ICD-10) Surgical History History of salpingectomy ?Z90.79 - Acquired absence of other genital organ(s) (ICD-10) History of tonsillectomy ?Z90.89 - Acquired absence of other organs (ICD-10) H/O: hysterectomy ?Z90.710 - Acquired absence of both cervix and uterus (ICD-10) Family History (Updated 12/30/23 @ 11:10 by Tanya Bryant) Mother Family history of cancer Brother Family history of diabetes mellitus FH: mental illness Social History Within the past year, how often did you have a drink containing alcohol: monthly or less Smoking status: Former smoker Non-prescribed substance use: denies use Previous occupational history: [employer] Highest level of school completed/degree received: Associate degree: occupational, technical, vocational program Little interest or pleasure in doing things: not at all Feeling down, depressed, or hopeless: not at all Exam Narrative Exam Narrative: This patient is awake alert good historian does not appear in any distress. Moves about comfortably. Moderately anxious skin warm and dry mucous membranes are pink with no evidence of scleral icterus or anemia. Examination abdomen shows substantial increase in bowel sounds. There is no peritoneal findings, there is no guarding rebound rigidity. Umanzor sign is negative no tenderness at McBurney's point. There is no abdominal distention. Skin is warm and dry with no pallor or diaphoresis. Constitutional Vital Signs, click to edit/add: Last Vital Signs Temp 97.7 F 03/06/24 07:03 Pulse 82 03/06/24 07:03 Resp 20 03/06/24 07:03 BP 135/98 H 03/06/24 07:03 Pulse Ox 100 03/06/24 07:03 Course Vital Signs Vital signs: Vital Signs Temperature 97.7 F 03/06/24 07:03 Pulse Rate 82 03/06/24 07:03 Respiratory Rate 20 03/06/24 07:03 Blood Pressure 135/98 H 03/06/24 07:03 Pulse Oximetry 100 03/06/24 07:03 Temperature 97.7 F 03/06/24 07:03 Pulse Rate 82 03/06/24 07:03 Respiratory Rate 20 03/06/24 07:03 Blood Pressure 135/98 H 03/06/24 07:03 Pulse Oximetry 100 03/06/24 07:03 MDM - Abdominal Pain MDM Narrative Medical decision making narrative: This patient presents with a benign abdomen, normal vital signs afebrile and has had extensive testing. There is a suggestion that she may have autoimmune disease. She currently is being managed and seen by a number of physicians which is complicating the follow-up process. Her primary care doctor is orchestrating this. At this stage I believe we can stop the Bentyl and begin high Cosamin on a trial basis. I do not believe she needs any narcotic analgesics at this time. Lab Data Labs: Lab Results 03/06/24 Range/Units 07:35 WBC 7.9 (4.0-11.0) 10^3/uL RBC 4.15 L (4.20-5.40) 10^6/uL Hgb 13.2 (12.0-16.0) g/dL Hct 38.1 (36.0-48.0) % MCV 91.8 (81.0-99.0) fL MCH 31.8 (26.7-34.0) pg MCHC 34.6 (29.9-35.2) g/dL RDW 12.2 (11.0-15.0) % Plt Count 155 (150-450) 10^3/uL MPV 10.4 (9.5-13.5) fL Neut % (Auto) 61.1 (43.0-75.0) % Lymph % (Auto) 32.0 (20.5-60.0) % [place]one % (Auto) 5.3 (1.7-12.0) % Eos % (Auto) 0.9 (0.9-7.0) % Baso % (Auto) 0.4 (0.2-2.0) % Neut # (Auto) 4.8 (1.4-6.5) 10^3/uL Lymph # (Auto) 2.5 (1.2-3.8) 10^3/uL [place]one # (Auto) 0.4 (0.3-0.8) 10^3/uL Eos # (Auto) 0.1 (0.0-0.7) 10^3/uL Baso # (Auto) 0.0 (0.0-0.1) 10^3/uL Abs Immat Gran (auto) 0.02 (0.00-0.03) 10^3/uL Imm/Tot Granulo (auto) 0.3 (0.0-0.5) % Sodium 144 (136-145) mmol/L Potassium 3.8 (3.5-5.1) mmol/L Chloride 105 (98-107) mmol/L Carbon Dioxide 28.8 (21.0-32.0) mmol/L Anion Gap 14.0 BUN 20.0 H (7.0-18.0) mg/dL Creatinine 1.07 H (0.55-1.02) mg/dL Est GFR ( Amer) >60 (>=60 mL/min/1.73m^2) Est GFR (Non-Af Amer) 55 L (>=60 mL/min/1.73m^2) BUN/Creatinine Ratio 18.7 Glucose 88 (74-106) mg/dL Calcium 9.4 (8.5-10.1) mg/dL Total Bilirubin 0.7 (0.2-1.0) mg/dL AST 11 L (15-37) U/L ALT 16 (14-59) U/L Alkaline Phosphatase 35 L (46-116) U/L Total Protein 7.2 (6.4-8.2) g/dL Albumin 4.1 (3.4-5.0) g/dL Globulin 3.1 g/dL Albumin/Globulin Ratio 1.3 Lipase 39.0 (16.0-77.0) U/L Discharge Plan Discharge Chief Complaint: Abdominal Pain Clinical Impression: Abdominal pain Patient Disposition: Home, Self-Care Time of Disposition Decision: 08:30 Prescriptions / Home Meds: No Action amitriptyline 25 mg tablet sucralfate [Carafate] 1 gram tablet 1 g PO Q6H PRN (Reason: abdominal pain) Qty: 12 0RF omeprazole 20 mg capsule,delayed release(DR/EC) 20 mg PO DAILY ondansetron 4 mg tablet,disintegrating 4 mg PO Q8H PRN (Reason: nausea and vomiting) dicyclomine 10 mg capsule 10 mg PO TID ondansetron HCl 4 mg tablet 4 mg PO Q8H PRN (Reason: nausea and vomiting) Print Language: [place] Additional Instructions: Stop Bentyl begin hide cholestyramine. Definitely tried to follow-up with your GI docs to discuss your lab test Referrals: Cyndi Epperson NP [Primary Care Provider] - 1 week
[2024-03-06 07:43] LABS: Basophils Percent Auto 0.4 % (0.2-2.0); Eosinophils Absolute Auto 0.1 10^3/uL (0.0-0.7); Eosinophils Percent Auto 0.9 % (0.9-7.0); Hematocrit 38.1 % (36.0-48.0); Hemoglobin 13.2 g/dL (12.0-16.0); Immature Granulocytes Abs Auto 0.02 10^3/uL (0.00-0.03); Immature Granulocytes Pct Auto 0.3 % (0.0-0.5); Lymphocytes Absolute Auto 2.5 10^3/uL (1.2-3.8); Mean Corpuscular HGB Conc 34.6 g/dL (29.9-35.2); Mean Corpuscular Hemoglobin 31.8 pg (26.7-34.0); Mean Corpuscular Volume 91.8 fL (81.0-99.0); Mean Platelet Volume 10.4 fL (9.5-13.5); Monocytes Absolute Auto 0.4 10^3/uL (0.3-0.8); Monocytes Percent Auto 5.3 % (1.7-12.0); Neutrophils Absolute Auto 4.8 10^3/uL (1.4-6.5); Neutrophils Percent Auto 61.1 % (43.0-75.0); Platelet Count 155 10^3/uL (150-450); Red Blood Count 4.15 10^6/uL (4.20-5.40); Red Cell Distribution Width 12.2 % (11.0-15.0); White Blood Count 7.9 10^3/uL (4.0-11.0)
[2024-03-06 08:00] LABS: Alanine Aminotransferase 16 U/L (14-59); Albumin Globulin Ratio 1.3; Albumin Level 4.1 g/dL (3.4-5.0); Alkaline Phosphatase 35 U/L (46-116); Aspartate Amino Transferase 11 U/L (15-37); BUN Creatinine Ratio 18.7; Bilirubin Total 0.7 mg/dL (0.2-1.0); Calcium 9.4 mg/dL (8.5-10.1); Carbon Dioxide 28.8 mmol/L (21.0-32.0); Chloride 105 mmol/L (98-107); Estimated GFR (African America >60 (>=60 mL/min/1.73m^2); Estimated GFR (Non-African Ame 55 (>=60 mL/min/1.73m^2); Globulin 3.1 g/dL; Glucose 88 mg/dL (74-106); Potassium 3.8 mmol/L (3.5-5.1); Sodium 144 mmol/L (136-145); Total Protein 7.2 g/dL (6.4-8.2)
== END 2024-03-06 08:41 | disposition home or self-care (01) ==
PROVIDERS: Emergency Provider Emergency Medicine Emergency Medical Services; PCP Nurse Practitioner
DX: R10.9 Unspecified abdominal pain (principal); Z87.891 Personal history of nicotine dependence
CPT/HCPCS: 36415; 80053; 83690; 85025; 99283

== ENCOUNTER 2024-03-16 10:02 | Outpatient (OUT) | payer OTHER, SELFPAY ==
--- OUTSIDE RECORDS SUMMARY | 2024-03-16 10:22 | XMS_ITS | CCD ---
Author Organization [facility] Informat ion Partnership [facility] [place] [facility] Care Team Providers Care Nurse Substance Abuse Name Role Phone AICHOLZ, OIL BURNER TECHNICIAN CYNDI Consulting Unavailable AICHHOLZ, OIL BURNER TECHNICIAN CYNDI Primary Care Unavailable AICHOLZ, OIL BURNER TECHNICIAN CYNDI Attending Unavailable AICHOLZ, OIL BURNER TECHNICIAN CYNDI Admitting Unavailable ROVERTO, DR RAMYA Rogers Consulting Unavailable KARASIK ., DR HDZ Consulting Unavailabl e AICHHOLZ, OIL BURNER TECHNICIAN CYNDI Primary Care Unavailable KARASIK ., DR HDZ Attending Unavailabl e KARASIK ., DR HDZ Admitting Unavailabl e PIPPA LOVING Consulting Unavaila ble GEMBUSNUPUR Consulting Unavailable KARASIK ., DR HDZ Consulting Unavailabl e AICHHOLZ, [facility] CYNDI Primary Care Unavailable KARASIK ., DR HDZ Attending Unavailabl e KARASIK ., DR HDZ Admitting Unavailabl e PAO RAMON Consulting Unavailable AICHHOLZ, OIL BURNER TECHNICIAN CYNDI Primary Care Unavailable KARASIK ., DR HDZ Attending Unavailabl e KARASIK ., DR HDZ Admitting Unavailabl e AICHHOLZ, OIL BURNER TECHNICIAN YCNDI Primary Care Unavailable KARASIK ., DR HDZ Attending Unavailabl e KARASIK ., DR HDZ Admitting Unavailabl e AICHHOLZ, OIL BURNER TECHNICIAN CYNDI Primary Care Unavailable KARASIK ., DR HDZ Attending Unavailabl e KARASIK ., DR DHZ Admitting Unavailabl e KARASIK ., DR HDZ Consulting Unavailabl e AICHHOLZ, OIL BURNER TECHNICIAN CYNDI Primary Care Unavailable KARASIK ., DR HDZ Attending Unavailabl e KARASIK ., DR HDZ Admitting Unavailabl e KARASIK ., DR HDZ Consulting Unavailabl e KARESTEPHANIA SUN Admitting Unavailable AICHHOLZ, OIL BURNER TECHNICIAN CYNDI Primary Care Unavailable KARASIK ., DR HDZ Attending Unavailabl e TED, DR MIKE Flores Consulting Unavailable AICHHOLZ, OIL BURNER TECHNICIAN CYNDI Primary Care Unavailable AICHHOLZ, OIL BURNER TECHNICIAN CYNDI Attending Unavailable AICHHOLZ, OIL BURNER TECHNICIAN CYNDI Admitting Unavailable AICHHOLZ, OIL BURNER TECHNICIAN CYNDI Consulting Unavailable AICHHOLZ, OIL BURNER TECHNICIAN CYNDI Consulting Unavailable AICHHOLZ, OIL BURNER TECHNICIAN CYNDI Primary Care Unavailable AICHHOLZ, OIL BURNER TECHNICIAN CYNDI Attending Unavailable AICHHOLZ, OIL BURNER TECHNICIAN CYNDI Admitting Unavailable AICHHOLZ, OIL BURNER TECHNICIAN CYNDI Consulting Unavailable AICHHOLZ, OIL BURNER TECHNICIAN CYNDI Primary Care Unavailable AICHHOLZ, OIL BURNER TECHNICIAN CYNDI Attending Unavailable AICHHOLZ, OIL BURNER TECHNICIAN CYNDI Admitting Unavailable AICHHOLZ, OIL BURNER TECHNICIAN CYNDI Consulting Unavailable AICHHOLZ, OIL BURNER TECHNICIAN CYNDI Primary Care Unavailable AICHHOLZ, OIL BURNER TECHNICIAN CYNDI Attending Unavailable AICHHOLZ, OIL BURNER TECHNICIAN CYNDI Admitting Unavailable KARASIK ., DR HDZ Consulting Unavailabl e AICHHOLZ, OIL BURNER TECHNICIAN CYNDI Primary Care Unavailable KARASIK ., DR HDZ Attending Unavailabl e KARASIK ., DR HDZ Admitting Unavailabl e KARASIK ., DR HDZ Consulting Unavailabl e AICHHOLZ, OIL BURNER TECHNICIAN CYNDI Primary Care Unavailable KARASIK ., DR HDZ Attending Unavailabl e KARASIK ., DR HDZ Admitting Unavailabl e HEATHER SWEENEY Consulting Unavailable KARASIK ., DR HDZ Procedure Practitioner Pina vailable ADINA YIP Consulting Unavailable AICHHOLZ, OIL BURNER TECHNICIAN CYNDI Primary Care Unavailable KARASIK ., DR HDZ Attending Unavailabl e KARASIK ., DR HDZ Admitting Unavailabl e AICHHOLZ, CYNDI J Primary Care Physician Reza Bedoya Attending Unavailable DO Samuel Lacey Attending Provider Reza Bedoya Attending Unavailable Booker Shelley Attending Unavaila Booker Garnica Attending Unavaila Samuel Goldberg Attending Unavailable Samuel Lacey Admitting Unavailable Rogelio Brown MD Primary Care Provider [phone] Aicsanjay MEDICAL CUSTOMER SERVICE REPRESENTATIVE, Cyndi Unavailable ZEENAT, CYNDI Attending Unavailable SAMUEL LACEY Attending Unavailable CYNDI EPPERSON Attending Unavailable CYNDI EPPERSON Attending Unavailable SELF Referring Unavailable CYNDI EPPERSON KEYA Primary Care Unavailable JONATHAN RUBI Attending Unavailable Nicolemini, Booker Jenkins Attending Unavaila ble SarminiBooker Referring Unavaila ble Sarmini, Booker Jenkins Attending Unavaila ble Sarmini, Celeste Talal Admitting Unavaila ble Allergies Allergy Classification Reported Allergen(s) Allergy Type Date of Onset Reaction(s) Facility (2 sources) Penicillins; Translations: [PENICILLINS] Drug allergy (disorder) 5 [facility] (1 source) Misc-Other; Translations: [Misc-Other] Propensity to adverse reactions (disorder) 2 [facility] (14 sources) Amoxicillin; Translations: [amoxicillin] Drug Allergy 4 [facility] (5 sources) Acetaminophen / oxyCODONE Drug Allergy 4 GI intolerance [facility] (5 sources) Penicillin G Drug Allergy 4 Rash [facility] Medications Current Medications Medication Drug Class(es) Dates Sig (Normalized) Sig (Original) amitriptyline hydrochloride 50 mg oral tablet (6 sources) Tricyclic Antidepressant Start: 03-09-2024 take 1 tablet by mouth once daily at bedtime amitriptyline 50 mg Tab 50 mg = 1 tab(s), Oral, Once a day (at bedtime), # 90 tab(s), Refills(s) 3, Pharmacy: [facility]/pharmacy #[id number], 170, cm, 03/09/24 8:14:00 EDT, Height/Length Dosing, 57, kg, 03/09/24 8:14:00 EDT, Weight Dosing Start Date: 03/09/24 Status: Ordered Start: 02-10-2024 take 1 tablet by livia th at bedtime amitriptyline (Elavil) 25 MG tablet Take 25 mg by mouth at bedtime 02/10/2024 Active dicyclomine hydrochloride 10 mg oral capsule (7 sources) Anticholinergic Start: 01-19-2024 End: 03-07-2024 dicyclomine 10 mg Cap Refills(s) 0 Start Date: 01/19/24 Status: Ordered Start: 12-19-2023 End: 12-26-2023 take 1 capsule by mouth every six hours as needed for muscle spasms Bentyl 10 mg Cap 10 mg = 1 cap(s), Oral, q6hr, PRN Spasm, X 7 day(s), # 30 cap(s), Refills(s) 0, [id number], 170.2, cm, 12/19/23 16:15:00 EDT, Height/Length Dosing, 57.8, kg, 12/19/23 16:15:00 EDT, Weight Dosing Start Date: 12/19/23 Stop Date: 12/26/23 Status: Ordered omeprazole 20 mg delayed release oral capsule (7 sources) Proton Pump Inhibitor Start: 12-22-2023 omeprazole 20 mg Cap-DR BID, Refills(s) 0 Start Date: 01/19/24 Status: Ordered ondansetron 4 mg oral tablet (7 sources) Serotonin-3 Receptor Antagonist Start: 01-19-2024 take 1 tablet by mouth every eight hours as needed for nausea Zofran 4 mg Tab 4 mg = 1 tab(s), Oral, q8hr, PRN Nausea/Vomiting, # 60 tab(s), Refills(s) 3, [id number] 170, cm, 01/19/24 12:39:00 EDT, Height/Length Dosing, 58.2, kg, 01/19/24 12:39:00 EDT, Weight Dosing Start Date: 01/19/24 Status: Ordered Start: 12-20-2023 take 1 tablet by livia every eight hours as needed ondansetron ODT (Zofran-ODT) 4 MG disintegrating tablet Take 4 mg by mouth every 8 (eight) hours if needed 12/20/2023 Active sucralfate 1000 mg oral tablet (5 sources) Aluminum Complex Start: 02-21-2024 sucralfate (Carafate) 1 g tablet Take 1 g by mouth 02/21/2024 Active traMADol hydrochloride 50 mg oral tablet (6 sources) Opioid Agonist Start: 12-19-2023 take 1 tablet by mouth every six hours as needed for pain traMADol (Ultram) 50 MG tablet Take 50 mg by mouth every 6 (six) hours if needed for severe pain Pt is taking half of 50mg (25mg) every 6hrs PRN 12/19/2023 Active Zofran ODT 4 mg Tab-Dis (2 sources) Start: 12-20-2023 take 1 tablet by mouth three times daily Zofran ODT 4 mg Tab-Dis 4 mg = 1 tab(s), Oral, TID, # 15 tab(s), Refills(s) 0, Pharmacy: [facility]/pharmacy #[id number], 170.2, cm, 12/19/23 16:15:00 EDT, Height/Length Dosing, 57.8, kg, 12/19/23 16:15:00 EDT, Weight Dosing Start Date: 12/20/23 Status: Ordered Problems Active Problems Problem Classification Problem Date Documented Da te Episodic/Chronic Abdominal pain (13 sources) Pelvic and perineal pain; Translations: [Abdominal pain] Onset: 2 Episodic Comment on above: Outside Source Comme nt: Last Assessment & Plan: Cont omeprazole and anti spasmodic Has GI appt 01/19/24, Unclear etiology: I do not think all related to HH, ?IBS? ??anxiety Will fu in 6 weeks Anxiety disorders (8 sources) Panic attack; Translations: [Panic disorder [episodic paroxysmal anxiety]] Onset: 4 02-22-2024 Chronic Endometriosis (7 sources) Endometriosis, unspecified; Translations: [Endometriosis (clinical)] Onset: 2 12-22-2023 Chronic Esophageal disorders (1 source) Gastroesophageal reflux disease 03-08-2024 Chronic Glaucoma (6 sources) Ocular hypertension; Translations: [Ocular hypertension, unspecified eye] Onset: 4 12-22-2023 Chronic Immunizations and screening for infectious disease (5 sources) Encounter for screening for human papillomavirus (HPV); Translations: [Raised antinuclear antibody] Onset: 3 03-01-2024 Episodic Menstrual disorders (13 sources) Dysmenorrhea, unspecified; Translations: [Excessive and frequent menstruation with regular cycle] Onset: 2 Chronic Nonspecific chest pain (7 sources) Tight chest; Translations: [Other chest pain] Onset: 4 02-22-2024 Episodic Nutritional deficiencies (11 sources) Iron deficiency; Translations: [Iron deficiency] Onset: 2 Episodic Other eye disorders (6 sources) Myogenic ptosis; 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] Onset: 4 12-22-2023 Episodic Other female genital disorders (4 sources) Unspecified dyspareunia; Translations: [UNSPECIFIED DYSPAREUNIA] Onset: 2 Chronic Other gastrointestinal disorders (1 source) Dysphagia 03-08-2024 Episodic Other liver diseases (11 sources) Large liver; Translations: [Hepatomegaly, not elsewhere classified] Onset: 4 Episodic Other screening for suspected conditions (not mental disorders or infectious disease) (19 sources) Encounter for screening for malignant neoplasm of cervix; Translations: [Other abnormal and inconclusive findings on diagnostic imaging of breast] Onset: 2 Episodic Residual codes; unclassified (1 source) Family history of malignant neoplasm of digestive organ; Translations: [Family history of malignant neoplasm of digestive organs] Onset: 4 Episodic Residual codes; unclassified (1 source) Family history of malignant neoplasm of pancreas 03-08-2024 Episodic Unclassified (1 source) PERSONAL HISTORY OF COVID-19; Translations: [PERSONAL HISTORY OF COVID-19] Onset: 2 Unclassified (4 sources) CONTACT W/AND (SUSP) EXPOS COVID-19; Translations: [CONTACT W/AND (SUSP) EXPOS COVID-19] Onset: 2 Past or Other Problems Problem Classification Problem [...] Test Name Value Interpretation Reference Range Facility Provider Letteron 03-13-2024 Provider Letter Provider Letter March 13, 2024 NIKKI MARTINS [address] [place] [id number] : 1980 Dear Nikki, We received a call from stating they have tried to reach you regarding your referral to Dr. Hossein Potter (Michael), doctor of vascular surgery for your new diagnosis of MALS. You can call to schedule with Dr. Potter's assistant surveyor, Yvonne, at office #: [phone]. Dr. Potter's address: [address] [place] [address] Please call the office with any questions or concerns. Thank you, [facility] [phone] [facility] Ambulatory Visit Summaryon 1 05-09-2023 Ambulatory Visit Summary Ambulatory Visit Summary NIKKI MARTINS :1980 Visit Date:03/09/2024 Ambulatory Visit Instructions Your Diagnosis Abdominal pain Large liver Family history of pancreatic cancer Your Care Team Attending Physician - Daphney MCKINLEY, Booker Jenkins Primary Care Physician - CYNDI EPPERSON CNP This Is Your Medications List amitriptyline (amitriptyline 50 mg Tab) Contact prescribing physician if questions or concerns dicyclomine (dicyclomine 10 mg Cap) omeprazole (omeprazole 20 mg Cap-DR) ondansetron (Zofran 4 mg Tab) ondansetron (Zofran ODT 4 mg Tab-Dis) Procedures Performed Colonoscopy (01/10/2024), EGD (esophagogastroduode noscopic) electrohydraulic lithotripsy of bezoar in stomach (01/10/2024), History of tonsillectomy, Resection of Bilateral Fallopian Tubes, Via Natural or Artificial Opening, Resection of Uterus, Via Natural or Artificial Opening. Discharge Vitals Heart Rate (Peripheral) 82 Respiratory Rate 16 Blood Pressure 132/85 Height 170 cm Height 67 in Weight 57 kg Weight 125.4 lb BMI 19.72 Medications What How Much When Instructions New amitriptyline (amitriptyline 50 mg Tab) 1 Tablets By Mouth Once a day (at bedtime) Refills: 3 Pickup at [facility]/pharmacy #[id number] Unchanged dicyclomine (dicyclomine 10 mg Cap) Contact prescribing physician if questions or concerns Unchanged omeprazole (omeprazole 20 mg Cap-DR) 2 times a day Contact prescribing physician if questions or concerns Unchanged ondansetron (Zofran 4 mg Tab) 1 Tablets By Mouth Every 8 hours as needed for Nausea/Vomiting Contact prescribing physician if questions or concerns Unchanged ondansetron (Zofran ODT 4 mg Tab-Dis) 1 Tablets By Mouth 3 times a day Contact prescribing physician if questions or concerns Pharmacy Information [facility]/pharmacy #[id number]: [address], [place] [id number] [phone] Allergies amoxicillin (Unkempt) Problems Ongoing - Any problem that you are currently receiving treatment for. Abdominal pain Dysmenorrhea Dysphagia Endometriosis (clinical) Family history of pancreatic cancer Gastroesophageal reflux disease Iron deficiency Large liver Mammography abnormal Myogenic ptosis Ocular hypertension Panic attack Upper abdominal pain Patient Survey You may receive a survey via text or e-mail asking about your office visit. Please share your experience with us by completing your survey. We appreciate your feedback and thank you for choosing us for your care. Normal [facility] Gastroenterology Office/Clin ic Noteon 03-09-2024 Gastroenterology Office/Clinic Note Gastroenterology Office/Clinic Note Chief Complaint epigastric to belly button, and right sided pain. 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 Taking Amitriptyline - helping nausea but not pain. [facility]. Seen @ [facility] 03/06/24 for abdominal pain. ED stopped bentyl and started her on hyoscyamine. Patient was unable to take Questran and went back to Bentyl. Stool testing ordered for enteric and parasite DNA. Last visit 01/19/24 w/Dr. Shelley: Assessment/Plan 1. Abdominal pain (R10.9: Unspecified abdominal [...] and HIDA scan were negative per report 2. Large liver (R16.0: Hepatomegaly, not elsewhere classified) Consider FibroScan in the future 3. Family history of pancreatic cancer (Z80.0: Family history of malignant neoplasm of digestive organs) Mother at the age of 58, will discuss MRCP in the future US mesenteric 03/02/24 @ [facility]: IMPRESSION AORTA Patent. MESENTERIC VESSELS Celiac: Evidence of dynamic elevated velocities due to median arcuate ligament compression. Hepatic: Not evaluated. Splenic: Not evaluated. Superior mesenteric artery: 0-69% stenosis. No evidence of hemodynamically significant stenosis. Inferior mesenteric artery: 0-69% stenosis. No evidence of hemodynamically significant stenosis. GES 02/07/24: IMPRESSION: ESSENTIALLY NORMAL GASTRIC EMPTYING. EGD/Colon 01/10/24 @ [facility]: Normal colon Normal EGD - random biopsies for H pylori Pathology: -H. pylori immunostain with appropriate control is also negative for identified Helicobacter organism or infection CT 12/15/23 @ [facility]: IMPRESSION: 1. Heterogeneous [...] IMPRESSION: 1. Normal nuclear medicine HIDA scan. Labs 02/22/24 @ [facility]: CRP <0.50 Amylase 57 Lipase 52.0 Antistreptolysin O Ab 124.7 Antinuclear Antibodies, IFA positive Speckled Pattern 1:640 (abnormal) Nuclear Dot Pattern >1:1280 (abnormal) Review of Systems PHQ Score Initial Depression Screen Score: 0 SCORE Physical Exam Vitals & Measurements HR: 82(Peripheral) RR: 16 BP: 132/85 HT: 67 in HT: 170 cm WT: 57 kg WT: 125.4 lb BMI: 19.72 Assessment/Plan 1. Abdominal pain (R10.9: Unspecified abdominal pain) Mild right upper quadrant pain, persistent, associated with early satiety, recurrent vomiting, and about 20 pounds weight loss Has recurrent CTs at [facility] in December 2023, showed borderline enlarged liver, otherwise unremarkable. Liver enzymes within normal limits, pancreatic enzymes within normal limits Gastric emptying study within normal limits EGD was also done at [facility] We tried amitriptyline 25 mg at bedtime, it helped decrease the pain a little bit, decrease the vomiting, but she still not eating well and losing weight I sent her to [facility] for abdomen ultrasound duplex suggestive of MALS Although the pain is not typical to be in the right upper quadrant for MALS, given the persistence of symptoms it is reasonable to refer to surgery for consultation I will also proceed with FibroScan, although fatty liver can cause some pain due to liver Enlargement, but That Pain Usually Is Not Severe and persistent, also with weight loss. Expect fatty liver to decrease in size, it is reasonable to obtain FibroScan 2. Large liver (R16.0: Hepatomegaly, not elsewhere classified) 3. Family history of pancreatic cancer (Z80.0: Family history of malignant neoplasm of digestive organs) Mother at the age of 58, will discuss genetic testing and MRCP in the future Follow-up No qualifying data available Problem List/Past Medical History Ongoing Abdominal pain Dysmenorrhea Dysphagia Endometriosis (clinical) Family history of pancreatic cancer Gastroesophageal reflux disease Iron deficiency Large liver Mammography abnormal Myogenic ptosis Ocular hypertension Panic attack Upper abdominal pain Historical No qualifying data Procedure/Surgical History Colonoscopy (01/10/2024), EGD (esophagogastroduode noscopic) electrohydraulic lithotripsy of (more content not included)... Normal [facility] Comment on above: Result Comment: Elec tronically Signed By: Daphney MCKINLEY, Booker Jenkins\.br\Date and Time Signed: 03/09/24 08:39 EDT 36on 03-02-2024 36 Patient called stating that her labs were resulted yesterday at [facility]. I updated them in her chart in care everywhere. Patient & her partner would like you to review them & contact them to discuss results. Normal [facility] US MESENTERIC ARTERY CMPLT V LABon 03-02-2024 US MESENTERIC ARTERY CMPLT VAS LAB Non-Invasive Vascular Laboratory [facility] [place] J35 Renal or Mesenteric Duplex Bilateral/Complete Date [...] Interpreting physician: CHATO Bright DO Final CC [employer] [facility] : [id number] [email or web address] See Link below for Image Normal [facility] Office Visiton 02-29-2024 Follow-up visit [id number] Nikki Martins 1980 F Date Provider Department Center 02/29/2024 JONATHAN CHOI [facility] INF [facility] No family history on file Level of Service:52873 [facility] OFFICE/OUTPATIENT NEW HIGH MDM [address] [facility] ALL AMYLASEon 02-22-2024 Amylase [Catalytic activity/Vol] 57 U/L 25 - 115 U/L [facility] ALL C REACTIVE PROTEINon CRP [Mass/Vol] mg/L [facility] - 0.50 mg/dL [facility] ALL SED RATEon 02-22-2024 [facility] SED RATE 3 NINF [facility] LIPASEon 02-22-2024 Lipase [Catalytic activity/Vol] 52 U/L 16.0 - 77.0 U/L [facility] No Panel Informationon 02-21 [facility] [place] Gastric Emptying Studyon 02-09-2024 NM Gastric [...] 3.0 hr (Upper Limit 30%) 5.3 Normal [facility] Gastroenterology Office/Clin ic Noteon 01-19-2024 Gastroenterology Office/Clinic Note Gastroenterology Office/Clinic Note Chief Complaint Abdominal pain HPI Staff Patient is a(n) 43 year old female who presents today for a f/u from [facility] 12/[facility]23 for acute abdominal pain and hepatomegaly. Fhx fatty liver disease. Denies previous EGD/Colonoscopy. Denies Fhx colon cancer. Denies blood thinners/GLP-1 agonists. Patient states that last Tuesday she had colonoscopy and EGD at [facility]. Abdominal pain: When did you first [...] @ [facility]: Normal colon CT 12/15/23 @ [facility]: IMPRESSION: 1. Heterogeneous enlarged liver. Correlate with labs. 2. No acute bowel or inflammatory findings. Normal appendix. 3. Simple 1 cm right renal cyst. RUQ US 12/16/23: IMPRESSION: 1. No acute or specific findings to account for patient's symptoms. 2. No suspicious abnormality of the liver. CT 12/19/23: IMPRESSION: NO ACUTE INTRA-ABDOMINAL PROCESS IDENTIFIED. HIDA 01/04 @ [facility]: IMPRESSION: 1. Normal nuclear medicine HIDA scan. [...] 91.3 fL (12/19/23) Chloride: 103 mmol/L (12/19/23) [facility] Absolute: 0.6 E9/L (12/19/23) CO2: 29 mmol/L (12/19/23) [facility] Auto: 4.8 % (12/19/23) Creatinine: 0.9 mg/dL [...] Nausea/Vomiting, # 60 tab(s), Refills(s) 3, Pharmacy: [facility]/pharmacy #[id number], 170, cm, 01/19/24 12:39:00 EDT, Height/Length [...] tab(s), Oral, (more content not included)... Normal [facility] Comment on above: Result Comment: Elec tronically Signed By: Daphney MCKINLEY, Booker Jenkins\.br\Date and Time Signed: 01/19/24 13:00 EDT Deejay 01-10-2024 L Specimen: [id number] Received: 01/12/24-134 Status: SOUT Relucrecia Num: [id number] Spec Type: Surgical Subm Dr: Samuel aLcey, DO Tissues: A STOMACH FOR HP (PREPYLORIC BX R/O H PYLORI) Procedures: HE/2, Gross/Micro L4, H PYLORI, RECUT Age/ Patient Sex Location Account Attending Physician Nikki Martins 43/F [facility] [id number] Samuel Lacey DO SPEC NUM: [id number] RECD: 01/12/24-134 STATUS: KATHERINE MARKS NUM: [id number] [place]: 01/10/24-[address] [facility] [address]: Samuel Lacey DO ENTERED: 01/12/24-[address]: [facility] SPEC TYPE: Surgical DEPT: ARUNA LAWLER ENTERED BY: [id number] RECV BY: [id number] ORDERED: HE/2, Gross/Micro L4, H PYLORI, RECUT ORDERED: HE/2, Gross/Micro L4, H PYLORI, RECUT Supplemental Report Addendum 1 Entered: 02/02/24 Supplemental for findings of H. pylori immunostain as performed per clinician's specimen requisition sheet: -H. pylori immunostain with appropriate control is also negative for identified Helicobacter organism or infection CPT: 36772 Addendum Signed (signature on file) Karen Bhardwaj MD 02/02/24926 Pathological Diagnosis Prepyloric gastric biopsy: -Antral mucosa with mild reactive gastropathy, including minor associated congestion without any other specific changes (no erosion, intestinal metaplasia, or any significant stromal chronic inflammation) Specimen: [id number] Received: 01/12/24 Status: KATHERINE Marks Num: [id number] Spec Type: Surgical Subm Dr: Samuel Lacey DO Tissues: A STOMACH FOR HP (PREPYLORIC BX R/O H PYLORI) Procedures: HE/2, Gross/Micro L4, H PYLORI, RECUT Patient: Nikki Martins [id number] (Continued) Specimen: [id number] Received: 01/12/24 (Continued) Pathological Diagnosis (Continued) Signed (signature on file) Karen Bhardwaj MD 02/02/24 0851 Specimen: [id number] Received: 01/12/24 Status: KATHERINE Marks Num: [id number] Spec Type: Surgical Subm Dr: Samuel Lacey DO Tissues: A STOMACH FOR HP (PREPYLORIC BX R/O H PYLORI) Procedures: HE/2, Gross/Micro L4, H PYLORI, RECUT Patient: Nikki Martins [id number] (Continued) Specimen: [id number] Received: 01/12/24-1348 (Continued) Pathological Diagnosis (Continued) -Also no other [...] performed supporting the above interpretation CPT Codes 26766 Specimen: [id number] Received: 01/12/24 Status: KATHERINE Marks Num: [id number] Spec Type: Surgical Subm Dr: Samuel Lacey DO Tissues: A STOMACH FOR HP (PREPYLORIC BX R/O H PYLORI) Procedures: HE/2, Gross/Micro L4, H PYLORI, RECUT Patient: Nikki Martins [id number] (Continued) Signed (signature on file) Karen Bhardwaj MD 02/02/24 0851 Normal [facility] CT Abdomen/Pelvis w/ Contras ton [...] Signature): 12/20/2023 9:42 am Signed by: Jayant tS MD Transcribed by: YAHIR Technologist: SELENA Technical Comments GFR (mL/min/1/73m2) 80 Contrast: Isovue 300 Contrast amount in ml's: 100 Normal [facility] [facility] ED Note-Physicianon 12-20-19 ED Note-Physician ED Note-Physician Basic Information Time Seen: Emily Troy PA-C. 12/19/2023 17:17 Chief Complaint was at [facility] for [facility]ram pain. had ct's done. still [...] The patient states she was seen at [facility] last Tuesday. She states they did [...] in length (more content not included)... Normal [facility] Comment on above: Result Comment: Elec tronically Signed By: Emily Troy PA-C\.br\Date and Time Signed: 12/19/23 23:05 EDT\.br\Electronically Co-Signed By: Emily Troy PA-C\.br\Date and Time Co-Signed: 12/19/23 23:06 EDT\.br\Electronically Co-Signed By: Emily Troy PA-C.br\Date and Time Co-Signed: 12/19/23 23:22 EDT\.br\Electronically Co-Signed By: Reza Bedoya DO\.br\Date and Time Co-Signed: 12/20/23 07:02 EDT BMPon 12-19-2023 Anion gap [Moles/Vol] 10 mmol/L Normal 6-16 [facility] Comment on above: Performed By: #### 2 [id number] #### [facility] [address] [place] [address] Calcium [Mass/Vol] 9.7 mg/dL Normal 8.9-11.1 [facility] Comment on above: Performed By: #### 2 [id number] #### [facility] [address] [place] [address] Chloride [Moles/Vol] 103 mmol/L Normal 101-111 [facility] Comment on above: Performed By: #### 2 [id number] #### [facility] [address] [facility] [place] [address] CO2 [Moles/Vol] 29 mmol/L Normal 21-31 [facility] Comment on above: Performed By: #### 2 [id number] #### [facility] [address] [place] [address] Creatinine [Mass/Vol] 0.9 mg/dL Normal 0.5-1.3 [facility] Comment on above: Performed By: #### 2 [id number] #### [facility] [address] [place] [address] Glucose [Mass/Vol] 92 mg/dL Normal 55-199 [facility] Comment on above: Performed By: #### 2 [id number] #### [facility] [address] [place] [address] Potassium [Moles/Vol] 4.3 mmol/L Normal 3.5-5.3 [facility] Comment on above: Performed By: #### 2 [id number] #### [facility] [address] [place] [address] Sodium [Moles/Vol] 138 mmol/L Normal 135-145 [facility] Comment on above: Performed By: #### 2 [id number] #### [facility] [address] [place] [address] Urea nitrogen [Mass/Vol] 17 mg/dL Normal 5-21 [facility] Comment on above: Performed By: #### 2 [id number] #### [facility] [address] [place] [address] Urea nitrogen/Creatinine [Mass ratio] 19 No Units Normal 10-20 [facility] Comment on above: Performed By: #### 2 [id number] #### [facility] [address] [place] [address] CBC w/ Auto Diffon 4 Basophils/100 WBC (Bld) 0.5 % Normal 0.0-2.0 [facility] Comment on above: Performed By: #### 2 [id number] #### [facility] [address] [place] [address] Basophils/Leukocytes Auto (Bld) [Pure # fraction] 0.1 E9/L Normal 0.0-0.2 [facility] Comment on above: Performed By: #### 2 [id number] #### [facility] [address] [place] [address] Eosinophils (Bld) [#/Vol] 0.1 E9/L Normal 0.0-0.5 [facility] Comment on above: Performed By: #### 2 [id number] #### [facility] [address] [place] [address] Eosinophils/100 WBC (Bld) 0.6 % Normal 0.0-8.0 [facility] Comment on above: Performed By: #### 2 [id number] #### [facility] [address] [place] [address] Erythrocyte distribution width (RBC) [Ratio] 13.1 % Normal 10.9-14.2 [facility] Comment on above: Performed By: #### 2 [id number] #### [facility] [address] [place] [address] Hematocrit (Bld) [Volume fraction] 42.6 % Normal 34.0-46.0 [facility] Comment on above: Performed By: #### 2 [id number] #### [facility] [address] [place] [address] Hemoglobin (Bld) [Mass/Vol] 14.7 g/dL Normal 12.0-16.0 [facility] Comment on above: Performed By: #### 2 [id number] #### [facility] [address] [place] [address] Lymphocytes (Bld) [#/Vol] 2.2 E9/L Normal 1.0-4.0 [facility] Comment on above: Performed By: #### 2 [id number] #### [facility] [address] [place] [address] Lymphocytes/100 WBC (Bld) 18.7 % Normal 14.0-50.0 [facility] Comment on above: Performed By: #### 2 170621 #### [facility] [address] [place] [address] MCH (RBC) [Entitic mass] 31.5 pg Normal 27.0-34.0 [facility] Comment on above: Performed By: #### 2 [id number] #### [facility] [address] [place] [address] MCHC (RBC) [Mass/Vol] 34.5 g/dL Normal 31.4-36.0 [facility] Comment on above: Performed By: #### 2 235314 #### [facility] [address] [place] [address] MCV (RBC) [Entitic vol] 91.3 fL Normal 80.0-100.0 [facility] Comment on above: Performed By: #### 2 632851 #### [facility] [address] [place] [address] Monocytes (Bld) [#/Vol] 0.6 E9/L Normal 0.2-1.0 [facility] Comment on above: Performed By: #### 2 [id number] #### [facility] [address] [place] [address] Neutrophils (Bld) [#/Vol] 8.7 E9/L High 2.0-7.5 [facility] Comment on above: Performed By: #### 2 587162 #### [facility] [address] [place] [address] Neutrophils/100 WBC (Bld) 75.4 % High 36.0-75.0 [facility] Comment on above: Performed By: #### 2 863097 #### [facility] [address] [place] [address] Platelet mean volume (Bld) [Entitic vol] 8.9 fL Normal 6.4-10.8 [facility] Comment on above: Performed By: #### 2 851782 #### [facility] [address] [place] [address] Platelets (Bld) [#/Vol] 173.0 E9/L Normal 150.0-500.0 [facility] Comment on above: Performed By: #### 2 [id number] #### [facility] [address] [place] [address] RBC (Bld) [#/Vol] 4.7 E12/L Normal 4.3-5.9 [facility] Comment on above: Performed By: #### 2 [id number] #### [facility] [address] [place] [address] WBC corrected for nucl RBC Auto (Bld) [#/Vol] 11.5 E9/L High 4.0-11.0 [facility] Comment on above: Performed By: #### 2 804697 #### [facility] [address] [place] [address] CHEMISTRYOrdered By: SYSTEM SYSTEM on 12-19-2023 Albumin [...] High Sensitivity Troponin I Instructions For Use, [employer], December 2017) Urea nitrogen [Mass/Vol] 17 mg/dL Normal 5 - 21 mg/dL [facility] Urea nitrogen/Creatinine [Mass ratio] 19 mg/mg Normal 10 - 20 [facility] COAGULATIONOrdered By: Courtney Sanches on 12-19-2023 aPTT Coag (PPP) [Time] 29.0 s Normal 25.1 - 36.5 second(s) [facility] Comment on above: Interpretive Data: [...] the same coagulation reagent and instrumentation as [facility]. Currently there are no coagulation studies available worldwide for children to 14 days, and no normal ranges. Heparin therapeutic range (represented by Anti-Factor Xa activity of 0.2 - 0.4 U/mL) corresponds to PTT of 56.6 - 109.0 sec. INR Coag (PPP) [Relative time] 1.05 {INR} Invalid Interpretation Code [facility] Comment on above: Interpretive Data: I NR results are specifically intended to assess patients stabilized on long-term Anticoagulation therapy suggested INR s Less Intensive Anticoagulation 2.0 3.0 Conventional Range 3.0 4.5 PT Coag (PPP) [Time] 11.8 s Normal 9.4 - 1 2.5 second(s) [facility] Comment on above: Interpretive Data: [...] the same coagulation reagent and instrumentation as [facility]. Currently there are no coagulation studies available worldwide for children to 14 days, and no normal ranges. ED Clinical Summaryon 2023 ED Clinical Summary ED Clinical Summary [place] [address] ED Clinical Summary Person Information Name: NIKKI MARTINS/[facility] Age: 43 Years : 1980 Sex: Female Language: Hungarian PCP: CYNDI EPPERSON CNP Marital Status: Single [...] 12/19/2023 23:16:39 12/19/2023 23:16:39 12/19/2023 23:16:39 ADDRESS: [address] [place] [phone] PHYS DOC NOTES: MEDICAL INFORMATION: Prescriptions Given: New Medications [id number], [address], [place] [id number], [phone] dicyclomine (Bentyl 10 mg Cap) 1 Capsules By Mouth every 6 hours as needed Spasm for 7 Days. Refills: 0. tramadol (traMADOL 50 mg Tab) 0.5-1 tab(s) By Mouth every 6 hours as needed as needed for pain. Refills: 0. PATIENT EDUCATION INFORMATION: Instructions: Hepatomegaly, Uhit-cc-Cqfc; Abdominal Pain, Adult Follow up: With: Address: When: Celeste Daphney [address], [address], [employer] [address] [place] [phone] Business (1) In 3 days 12/22/2023 With: Address: When: CYNDI EPPERSON [address] [place], [place] [phone] Business (1) In 3 days DIAGNOSIS: 1:Acute abdominal pain; 2:Hepatomegaly Normal [facility] ED Patient Summaryon 024 ED Patient Summary ED Patient Summary [address] [address] Patient Discharge Instructions Person Information Name: NIKKI MARTINS Age: 43 Years Arrival Date: 12/19/2023 15:58:56 Discharge Diagnosis: 1:Acute abdominal pain; 2:Hepatomegaly Primary Care Physician: CYNDI EPPERSON CNP Provider Information Primary Provider: Reza Bedoya DO Advanced Social Service Worker:None The exam and treatment you received in the Emergency Department were for an urgent problem and are not intended as complete care. It is important that you follow up with a doctor, nurse practitioner, or physician?s assistant surveyor for ongoing care. If your symptoms become worse or you do not improve as expected and you are unable to reach your usual health care provider, you should return to the Emergency Department. We are available 24 hours a day. NIKKI MARTINS has been given the following list of patient education materials, prescriptions and follow-up instructions: Follow-up Instructions: With: Address: When: [address], [address], [facility] [address] [place] [phone] Business (1) In 3 days 12/22/2023 With: Address: When: CYNDI EPPERSON [address] [place], [place] [phone] Business (1) In 3 days In the event that this physician does not participate in your insurance network, please consult with your insurance company to find a nearby participating provider. Patient Education Materials: Hepatomegaly, Vlwc-km-Fsbv; Abdominal Pain, Adult A MESSAGE TO ALL PATIENTS REGARDING OPIOIDS PRESCRIPTION OPIOIDS: WHAT YOU NEED TO KNOW Prescription opioids can be used to help relieve yjktymak-yo-gjhfcd pain and are often prescribed following a [...] opioids abuse (more content not included)... Normal [facility] HEMATOLOGYOrdered By: SYSTEM SYSTEM on 12-19-2023 [...] 12-19-2023 Albumin [Mass/Vol] 4.3 g/dL Normal 3.3-5.0 [facility] Comment on above: Performed By: #### 2 [id number] #### [facility] [address] [place] [address] Albumin/Globulin (S) [Mass conc ratio] 2.0 Normal 1.1-2.2 [facility] Comment on above: Performed By: #### 2 [id number] #### [facility] [address] [place] [address] ALP [Catalytic activity/Vol] 28 Int._Unit/L Normal 21-98 [facility] Comment on above: Performed By: #### 2 [id number] #### [facility] [address] [place] [address] ALT No additional P-5'-P [Catalytic activity/Vol] 14 Int._Unit/L Normal 6-46 [facility] Comment on above: Performed By: #### 2 [id number] #### [facility] [address] [place] [address] AST [Catalytic activity/Vol] 14 Int._Unit/L Normal 5-43 [facility] Comment on above: Performed By: #### 2 [id number] #### [facility] [address] [place] [address] Bilirubin [Mass/Vol] 1.0 mg/dL Normal 0.0-1.1 [facility] Comment on above: Performed By: #### 2 [id number] #### [facility] [address] [place] [address] Bilirubin.direct [Mass/Vol] 0.1 mg/dL Normal 0.0-0.4 [facility] Comment on above: Performed By: #### 2 [id number] #### [facility] [address] [place] [address] Bilirubin.indirect [Mass or moles/Vol] 0.9 mg/dL Normal 0.1-0.9 [facility] Comment on above: Performed By: #### 2 [id number] #### [facility] [address] [place] [address] Globulin (S) [Mass/Vol] 2.1 g/dL Normal 1.4-4.0 [facility] Comment on above: Performed By: #### 2 670445 #### [facility] [address] [place] [address] Protein [Mass/Vol] 6.4 g/dL Normal 6.0-7.8 [facility] Comment on above: Performed By: #### 2 [id number] #### [facility] [address] [place] [address] Lipase Levelon 12-19-2023 Lipase [Catalytic activity/Vol] 18 U/L Normal 13-58 [facility] Comment on above: Performed By: #### 2 [id number] #### [facility] [address] [place] [address] PT & PTTon 12-19-2023 aPTT Coag (PPP) [Time] 29.0 second(s) Normal 25.1-36.5 [facility] Comment on above: Result Comment: Para [...] the same coagulation reagent and instrumentation as [facility]. Currently there are no coagulation studies available worldwide for children to 14 days, and no normal ranges. Heparin therapeutic range (represented by Anti-Factor Xa activity of 0.2 - 0.4 U/mL) corresponds to PTT of 56.6 - 109.0 sec. Performed By: #### 1 [id number] #### [facility] [address] [place] [address] INR Coag (PPP) [Relative time] 1.05 {INR} Invalid Interpretation Code [facility] Comment on above: Result Comment: INR results are specifically intended to assess patients stabilized on long-term Anticoagulation therapy suggested INR?s ?Less Intensive Anticoagulation? 2.0 ? 3.0 Conventional Range 3.0 ? 4.5 Performed By: #### 1 [id number] #### [facility] [address] [place] [address] PT Coag (PPP) [Time] 11.8 second(s) Normal 9.4-12.5 [facility] Comment on above: Result Comment: 15 [...] the same coagulation reagent and instrumentation as [facility]. Currently there are no coagulation studies available worldwide for children to 14 days, and no normal ranges. Performed By: #### 1 [id number] #### [facility] [address] [place] [address] Troponin 0 Hr.on 12-19-2023 Troponin HS 2.70 pg/mL Low 10.10-27.10 [facility] Comment on above: Result Comment: The 95% CI (Confidence Interval) PPV (Positive Predictive Value) for myocardial infarction in females is 38 pg/mL, in males 51 pg/mL. The results should be used in conjunction with clinical conditions of myocardial infarction. (Access High Sensitivity Troponin I Instructions For Use, [employer], December 2017) Performed By: #### 1 [id number] #### [facility] [address] [place] [address] Troponin 1 Hr.on 12-19-2023 Troponin HS 2.40 pg/mL Low 10.10-27.10 [facility] Comment on above: Order Comment: 1809 Result Comment: The 95% CI (Confidence Interval) PPV (Positive Predictive Value) for myocardial infarction in females is 38 pg/mL, in males 51 pg/mL. The results should be used in conjunction with clinical conditions of myocardial infarction. (Access High Sensitivity Troponin I Instructions For Use, [employer], December 2017) Performed By: #### 1 [id number] #### [facility] [address] [place] [address] eGFRon 12-19-2023 eGFR 80 mL/min/1.73 m2 Normal >=59 [facility] Comment on above: Order Comment: Order added by Discern Expert. Performed By: #### 1 [id number] #### [facility] [address] [place] [address] MG MAMM DIAGNOSTIC 3D [place] CA Don 04-08-2022 MG MAMM DIAGNOSTIC 3D [place] CAD Patient: LAKSHMINIKKILucy Exam Date: 04/08/2022 : 1980 Gender:F Ordering : KP CYNDI EPPERSON OIL BURNER TECHNICIAN Admission #: [id number] Family : Order #: [id number] CLICK HERE TO VIEW EXAM RADIOLOGY REPORT [...] pancreatic cancer at age 55. LOCATION: [facility] BREAST COMPOSITION: Heterogeneously dense,which may obscure [...] MD on 04/08/2022 at 15:21 Normal [facility] US BREAST [place] LIMITEDon - US BREAST [place] LIMITED Patient: NIKKI MARTINS Exam Date: 04/08/2022 : 1980 Gender:F Ordering : KP EPPERSON OIL BURNER TECHNICIAN Admission #: [id number] Family : Order #: [id number] CLICK HERE TO VIEW EXAM RADIOLOGY REPORT PROCEDURE: MAMMOGRAM DIAGNOSTIC 3D BILATERAL CAD, 04/08/2022, 13:50 ULTRASOUND BREAST BILATERAL LIMITED, 04/08/2022, 14:42 COMPARISON: MAMMO POST BIOPSY LEFT, 09/22/2021. INDICATIONS: Abnormal findings on diagnostic imaging of breast Calculator Name [facility] Breast Cancer Risk Assessment Tool 5 Year Breast Cancer Risk 1.20% Lifetime Breast Cancer Risk 10.40% Personal Breast Cancer No Personal Ovarian Cancer No Treatments None Family Cancers Grandmother-paternal with breast cancer at age 55; Father with unknown cancer at age 59; Mother with pancreatic cancer at age 57. LOCATION: [facility] BREAST COMPOSITION: Heterogeneously dense,which may obscure [...] MD on 04/08/2022 at 15:21 Normal [facility] BUNon 03-23-2022 Urea nitrogen [Mass/Vol] 18.0 mg/dL Normal 7.0-18.0 [facility] Comment on above: Performed By: #### B ERNST GARLAND #### [facility] [address] [place] [address] [address] Jackie Bhardwaj CBC AUTO DIFFon 03-23-2022 BASO # 0.0 103/ul Normal 0.0-0.1 [facility] Comment on above: Performed By: #### P TT, PT #### [facility] [address] [place] [address] Dr. Jackie Bhardwaj Basophils/100 WBC (Bld) 0.2 % Normal 0.2-2.0 [facility] Comment on above: Performed By: #### P TT, PT #### [facility] [address] [place] [address] Dr. Jackie Bhardwaj EO # 0.1 103/ul Normal 0.0-0.7 [facility] Comment on above: Performed By: #### P TT, PT #### [facility] [address] [place] [address] Dr. Jackie Bhardwaj Eosinophils/100 WBC (Bld) 0.4 % Critically low 0.9-7.0 [facility] Comment on above: Performed By: #### P TT, PT #### [facility] [address] [place] [address] Dr. Jackie Bhardwaj Erythrocyte distribution width (RBC) [Ratio] 12.8 % Normal 11.0-15.0 [facility] Comment on above: Performed By: #### P TT, PT #### [facility] [address] [place] [address] Dr. Jackie Bhardwaj Hematocrit (Bld) [Volume fraction] 30.7 % Critically low 36.0-48.0 [facility] Comment on above: Performed By: #### P TT, PT #### [facility] [address] [place] [address] Dr. Jackie Bhardwaj Hemoglobin (Bld) [Mass/Vol] 10.3 g/dL Critically low 12.0-16.0 [facility] Comment on above: Performed By: #### P TT, PT #### [facility] [address] [place] [address] Dr. Jackie Bhardwaj IG # 0.04 10e3/ul Critically high 0.00-0.03 [facility] Comment on above: Performed By: #### P TT, PT #### [facility] [address] [place] [address] Dr. Jackie Bhardwaj IG % 0.3 % Normal 0.0-0.5 [facility] Comment on above: Performed By: #### P TT, PT #### [facility] [address] [place] [address] [address] Jackie Bhardwaj LYMPH # 2.7 103/ul Normal 1.2-3.8 [facility] Comment on above: Performed By: #### P TT, PT #### [facility] [address] [place] [address] [address] Jackie Bhardwaj Lymphocytes/100 WBC (Bld) 21.0 % Normal 20.5-60.0 [facility] Comment on above: Performed By: #### P TT, PT #### [facility] [address] [place] [address] Dr. Jackie Bhardwaj MANUAL DIFF REQ NO Normal [facility] Comment on above: Performed By: #### P TT, PT #### [facility] [address] [place] [address] Dr. Jackie Bhardwaj MCH (RBC) [Entitic mass] 30.7 pg Normal 26.7-34.0 [facility] Comment on above: Performed By: #### P TT, PT #### [facility] [address] [place] [address] Dr. Jackie Bhardwaj MCHC (RBC) [Mass/Vol] 33.6 g/dL Normal 29.9-35.2 [facility] Comment on above: Performed By: #### P TT, PT #### [facility] [address] [place] [address] Dr. Jackie Bhardwaj MCV (RBC) [Entitic vol] 91.6 fL Normal 81.0-99.0 [facility] Comment on above: Performed By: #### P TT, PT #### [facility] [address] [place] [address] Dr. Jackie Bhardwaj MONO # 0.8 103/ul Normal 0.3-0.8 [facility] Comment on above: Performed By: #### P TT, PT #### [facility] [address] [place] [address] Dr. Jackie Bhardwaj Monocytes/100 WBC (Bld) 6.2 % Normal 1.7-12.0 [facility] Comment on above: Performed By: #### P TT, PT #### [facility] [address] [place] [address] Dr. Jackie Bhardwaj NEUT # 9.2 103/ul Critically high 1.4-6.5 [facility] Comment on above: Performed By: #### P TT, PT #### [facility] [address] [place] [address] Dr. Jackie Bhardwaj Neutrophils/100 WBC (Bld) 71.9 % Normal 43.0-75.0 [facility] Comment on above: Performed By: #### P TT, PT #### [facility] [address] [place] [address] Dr. Jackie Bhardwaj Platelet mean volume (Bld) [Entitic vol] 11.2 fL Normal 9.5-13.5 [facility] Comment on above: Performed By: #### P TT, PT #### [facility] [address] [place] [address] Dr. Jackie Bhardwaj PLT 135 103/ul Critically low 150-450 [facility] Comment on above: Performed By: #### P TT, PT #### [facility] [address] [place] [address] Dr. Jackie Bhardwaj RBC 3.35 106/ul Critically low 4.20-5.40 [facility] Comment on above: Performed By: #### P TT, PT #### [facility] [address] [place] [address] Dr. Jackie Bhardwaj WBC 12.8 103/ul Critically high 4.0-11.0 [facility] Comment on above: Performed By: #### P TT, PT #### [facility] [address] [place] [address] Dr. Jackie Bhardwaj CREATININEon 03-23-2022 Creatinine [Mass/Vol] 0.72 mg/dL Normal 0.55-1.02 [facility] Comment on above: Performed By: #### B UN, CREA #### [facility] [address] [place] [address] Dr. Jackie Bhardwaj EGFR-AF ANGUILLAN >60 Normal >=60 [facility] Comment on above: Performed By: #### B UN, CREA #### [facility] [address] [place] [address] Dr. Jackie Bhardwaj EGFR-NON AF ANGUILLAN >60 Normal >=60 [facility] Comment on above: Performed By: #### B UN, CREA #### [facility] [address] [place] [address] Dr. Jackie Bhardwaj ANTIBODY ID PANELon 03-22-20 ANTIBODY ID PANEL Antibody ID Anti-D Blood Bank Notes testing performed at [facility] reference lab [facility] Comment on above: Performed By: #### P TT, PT #### [facility] [address] [place] [address] Dr. Jackie Bhardwaj URon 03-22-2022 , QUAL Negative Normal NEGATIVE [facility] Comment on above: Performed By: #### P TT, PT #### [facility] [address] [place] [address] Dr. Jackie Bhardwaj Covid-19 PCR (CVDTB)on 03-09 SARS-CoV-2 (COVID-19) RNA JOHN+probe Ql (Unsp spec) Not detected Normal NOT DETECTED [facility] Comment on above: Result Comment: This test is not yet approved or cleared by the [place] FDA. When there are no FDA-approved or cleared tests available, and other criteria are met, FDA can make tests available under an emergency access mechanism called an Emergency Use Authorization (EUA). The EUA for this test is supported by the [place] of Health and Human Service's (HHS's) declaration [...] SARS-CoV-2. Performed By: #### C VDTBH #### [facility] [address] [place] [address] Dr. Jackie Bhardwaj TYPE AND SCREENon 03-18-2022 TYPE AND SCREEN Negative Normal [facility] Comment on above: Performed By: #### P TT, PT #### [facility] [address] [place] [address] Dr. Jackie Bhardwaj LIVER PROFILEon 03-10-2022 Albumin [Mass/Vol] 4.1 g/dL Normal 3.4-5.0 [facility] Comment on above: Performed By: #### L IVER, BMP #### [facility] [address] [place] [address] Dr. Jackie Bhardwaj Albumin/Globulin [Mass ratio] 1.6 {ratio} Normal [facility] Comment on above: Performed By: #### L IVER, BMP #### [facility] [address] [place] [address] Dr. Jackie Bhardwaj ALP [Catalytic activity/Vol] 41 U/L Critically low 46-116 [facility] Comment on above: Performed By: #### L IVER, BMP #### [facility] [address] [place] [address] Dr. Jackie Bhardwaj ALT [Catalytic activity/Vol] 16 U/L Normal 14-59 [facility] Comment on above: Performed By: #### L IVER, BMP #### [facility] [address] [place] [address] Dr. Jackie Bhardwaj AST [Catalytic activity/Vol] 14 U/L Critically low 15-37 [facility] Comment on above: Performed By: #### L IVER, BMP #### [facility] [address] [place] [address] Dr. Jackie Bhardwaj BILI, CONJUGATED 0.1 mg/dL Normal 0.0-0.2 [facility] Comment on above: Performed By: #### L IVER, BMP #### [facility] [address] [place] [address] Dr. Jackie Bhardwaj Bilirubin [Mass/Vol] 0.3 mg/dL Normal 0.2-1.0 [facility] Comment on above: Performed By: #### L IVER, BMP #### [facility] [address] [place] [address] Dr. Jackie Bhardwaj Globulin (S) [Mass/Vol] 2.5 g/dL Normal [facility] Comment on above: Performed By: #### L IVER, BMP #### [facility] [address] [place] [address] Dr. Jackie Bhardwaj Protein [Mass/Vol] 6.6 g/dL Normal 6.4-8.2 [facility] Comment on above: Performed By: #### L IVER, BMP #### [facility] [address] [place] [address] Dr. Jackie Bhardwaj PROF CHEM 8 (BAS METB)on Anion gap [Moles/Vol] 11.6 mmol/L Normal [facility] Comment on above: Performed By: #### L IVER, BMP #### [facility] [address] [place] [address] Dr. Jackie Bhardwaj Calcium [Mass/Vol] 8.8 mg/dL Normal 8.5-10.1 [facility] Comment on above: Performed By: #### L IVER, BMP #### [facility] [address] [place] [address] Dr. Jackie Bhardwaj Chloride [Moles/Vol] 102 mmol/L Normal 98-107 [facility] Comment on above: Performed By: #### L IVER, BMP #### [facility] [address] [place] [address] Dr. Jackie Bhardwaj CO2 [Moles/Vol] 28.9 mmol/L Normal 21.0-32.0 [facility] Comment on above: Performed By: #### L IVER, BMP #### [facility] [address] [place] [address] Dr. Jackie Bhardwaj Creatinine [Mass/Vol] 0.78 mg/dL Normal 0.55-1.02 [facility] Comment on above: Performed By: #### L IVER, BMP #### [facility] [address] [address] [address] Jackie Bhardwaj EGFR-AF ANGUILLAN >60 Normal >=60 [facility] Comment on above: Performed By: #### L SHYLA, BMP #### [facility] [address] [address] [address] Jackie Bhardwaj EGFR-NON AF ANGUILLAN >60 Normal >=60 [facility] Comment on above: Performed By: #### L SHYLA, BMP #### [facility] [address] [address] [address] Jackie Bhardwaj Glucose [Mass/Vol] 81 mg/dL Normal 74-106 [facility] Comment on above: Performed By: #### L SHYLA, BMP #### [facility] [address] [place] [address] Dr. Jackie Bhardwaj Potassium [Moles/Vol] 3.5 mmol/L Normal 3.5-5.1 [facility] Comment on above: Performed By: #### Robin MANSFIELD, BMP #### [facility] [address] [place] [address] Dr. Jackie Bhardwaj Sodium [Moles/Vol] 139 mmol/L Normal 136-145 [facility] Comment on above: Performed By: #### L SHYLA, BMP #### [facility] [address] [place] [address] Dr. Jackie Bhardwaj Urea nitrogen [Mass/Vol] 21.0 mg/dL Critically high 7.0-18.0 [facility] Comment on above: Performed By: #### Robin MANSFIELD, BMP #### [facility] [address] [place] [address] Dr. Jackie Bhardwaj Urea nitrogen/Creatinine [Mass ratio] 26.9 mg/mg Normal [facility] Comment on above: Performed By: #### L SHYLA, BMP #### [facility] [address] [place] [address] Dr. Jackie Bhardwaj PROTIMEon 03-10-2022 INR Coag (PPP) [Relative time] 0.98 {INR} Normal [facility] Comment on above: Performed By: #### P TT, PT #### [facility] [address] [place] [address] Dr. Jackie Bhardwaj INR GUIDELINES SEE BELOW Normal [facility] Comment on above: Result Comment: BILLY RED INR: 2.0 - 3.0 CONDITIONS NOT LISTED BELOW 2.5 - 3.5 FOR PROSTHETIC HEART VALVE REPLACEMENT 2.5 - 3.5 RECURRENT THROMBOSIS Performed By: #### P TT, PT #### [facility] [address] [place] [address] Dr. Jackie Bhardwaj PT Coag (PPP) [Time] 10.6 s Normal 9.0-11.6 [facility] Comment on above: Performed By: #### P TT, PT #### [facility] [address] [place] [address] Dr. Jackie Bhardwaj PTTon 03-10-2022 aPTT Coag (Bld) [Time] 26.3 s Normal 22.3-36.2 [facility] Comment on above: Performed By: #### P TT, PT #### [facility] [address] [place] [address] Dr. Jackie Bhardwaj CBC AUTO DIFFon 03-09-2022 BASO # 0.1 103/ul Normal 0.0-0.1 [facility] Comment on above: Performed By: #### P TT, PT #### [facility] [address] [place] [address] Dr. Jackie Bhardwaj Basophils/100 WBC (Bld) 0.6 % Normal 0.2-2.0 [facility] Comment on above: Performed By: #### P TT, PT #### [facility] [address] [place] [address] Dr. Jackie Bhardwaj EO # 0.2 103/ul Normal 0.0-0.7 [facility] Comment on above: Performed By: #### P TT, PT #### [facility] [address] [place] [address] Dr. Jackie Bhardwaj Eosinophils/100 WBC (Bld) 1.8 % Normal 0.9-7.0 [facility] Comment on above: Performed By: #### P TT, PT #### [facility] [address] [place] [address] Dr. Jackie Bhardwaj Erythrocyte distribution width (RBC) [Ratio] 12.7 % Normal 11.0-15.0 [facility] Comment on above: Performed By: #### P TT, PT #### [facility] [address] [place] [address] Dr. Jackie Bhardwaj Hematocrit (Bld) [Volume fraction] 39.1 % Normal 36.0-48.0 [facility] Comment on above: Performed By: #### P TT, PT #### [facility] [address] [place] [address] Dr. Jackie Bhardwaj Hemoglobin (Bld) [Mass/Vol] 12.8 g/dL Normal 12.0-16.0 [facility] Comment on above: Performed By: #### P TT, PT #### [facility] [address] [place] [address] Dr. Jackie Bhardwaj IG # 0.03 10e3/ul Normal 0.00-0.03 [facility] Comment on above: Performed By: #### P TT, PT #### [facility] [address] [place] [address] Dr. Jackie Bhardwaj IG % 0.3 % Normal 0.0-0.5 [facility] Comment on above: Performed By: #### P TT, PT #### [facility] [address] [place] [address] Dr. Jackie Bhardwaj LYMPH # 3.5 103/ul Normal 1.2-3.8 [facility] Comment on above: Performed By: #### P TT, PT #### [facility] [address] [place] [address] Dr. Jackie Bhardwja Lymphocytes/100 WBC (Bld) 32.7 % Normal 20.5-60.0 [facility] Comment on above: Performed By: #### P TT, PT #### [facility] [address] [place] [address] Dr. Jackie Bhardwaj MANUAL DIFF REQ NO Normal [facility] Comment on above: Performed By: #### P TT, PT #### [facility] [address] [place] [address] Dr. Jackie Bahrdwaj MCH (RBC) [Entitic mass] 30.7 pg Normal 26.7-34.0 [facility] Comment on above: Performed By: #### P TT, PT #### [facility] [address] [place] [address] Dr. Jackie Bhardwaj MCHC (RBC) [Mass/Vol] 32.7 g/dL Normal 29.9-35.2 [facility] Comment on above: Performed By: #### P TT, PT #### [facility] [address] [place] [address] Dr. Jackie Bhardwaj MCV (RBC) [Entitic vol] 93.8 fL Normal 81.0-99.0 [facility] Comment on above: Performed By: #### P TT, PT #### [facility] [address] [place] [address] Dr. Jackie Bhardwaj MONO # 0.7 103/ul Normal 0.3-0.8 [facility] Comment on above: Performed By: #### P TT, PT #### [facility] [address] [place] [address] Dr. Jackie Bhardwaj Monocytes/100 WBC (Bld) 6.3 % Normal 1.7-12.0 [facility] Comment on above: Performed By: #### P TT, PT #### [facility] [address] [place] [address] Dr. Jackie Bhardwaj NEUT # 6.2 103/ul Normal 1.4-6.5 [facility] Comment on above: Performed By: #### P TT, PT #### [facility] [address] [place] [address] Dr. Jackie Bhardwaj Neutrophils/100 WBC (Bld) 58.3 % Normal 43.0-75.0 [facility] Comment on above: Performed By: #### P TT, PT #### [facility] [address] [place] [address] Dr. Jackie Bhardwaj Platelet mean volume (Bld) [Entitic vol] 11.5 fL Normal 9.5-13.5 [facility] Comment on above: Performed By: #### P TT, PT #### [facility] [address] [place] [address] Dr. Jackie Bhardwaj PLT 167 103/ul Normal 150-450 [facility] Comment on above: Performed By: #### P TT, PT #### [facility] [address] [place] [address] Dr. Jackie Bhardwaj RBC 4.17 106/ul Critically low 4.20-5.40 [facility] Comment on above: Performed By: #### P TT, PT #### [facility] [address] [place] [address] Dr. Jackie Bhardwaj WBC 10.6 103/ul Normal 4.0-11.0 [facility] Comment on above: Performed By: #### P TT, PT #### [facility] [address] [place] [address] Dr. Jackie Bhardwaj IRONon 03-09-2022 Iron [Mass/Vol] 73.0 ug/dL Normal 50.0-170.0 [facility] Comment on above: Performed By: #### P TT, PT #### [facility] [address] [place] [address] Dr. Jackie Bhardwaj PREG HCG QUALon 02-01-2022 , QUAL Negative Normal NEGATIVE [facility] Comment on above: Performed By: #### P REG #### [facility] [address] [place] [address] Dr. Jackie Bhardwaj , QUAL Negative Normal NEGATIVE [facility] Comment on above: Result Comment: Prev iously reported as: [id number] On 02/01/2022 06:45 By DM9 Performed By: #### P TT, PT #### [facility] [address] [place] [address] Dr. Jackie Bhardwaj [facility]08 SARS-CoV-2 (COVID-19) RNA JOHN+probe Ql (Unsp spec) Not detected Normal NOT DETECTED [facility] Comment on above: Result Comment: This test is not yet approved or cleared by the [place] FDA. When there are no FDA-approved or cleared tests available, and other criteria are met, FDA can make tests available under an emergency access mechanism called an Emergency Use Authorization (EUA). The EUA for this test is supported by the [place] of Health and Human Service's (HHS's) declaration [...] consistent with SARS-CoV-2. Performed By: #### C [facility] #### [facility] [address] [place] [address] Dr. Jackie Bhardwaj Covid-19 PCR ([facility])on 12-09 SARS-CoV-2 (COVID-19) RNA JOHN+probe Ql (Unsp spec) Not detected Normal NOT DETECTED [facility] Comment on above: Result Comment: This test is not yet approved or cleared by the [place] FDA. When there are no FDA-approved or cleared tests available, and other criteria are met, FDA can make tests available under an emergency access mechanism called an Emergency Use Authorization (EUA). The EUA for this test is supported by the [place] of Health and Human Service's (HHS's) declaration [...] Performed By: #### P TT, PT #### [facility] [address] [place] [address] Dr. Jackie Bhardwaj CBC AUTO DIFFon 12-29-2021 BASO # 0.1 103/ul Normal 0.0-0.1 [facility] Comment on above: Performed By: #### C BC #### [facility] [address] [place] [address] Dr. Jackie Bhardwaj Basophils/100 WBC (Bld) 0.4 % Normal 0.2-2.0 [facility] Comment on above: Performed By: #### C BC #### [facility] [address] [place] [address] Dr. Jackie Bhardwaj EO # 0.2 103/ul Normal 0.0-0.7 [facility] Comment on above: Performed By: #### C BC #### [facility] [address] [place] [address] Dr. Jackie Bhardwaj Eosinophils/100 WBC (Bld) 1.6 % Normal 0.9-7.0 [facility] Comment on above: Performed By: #### C BC #### [facility] [address] [place] [address] Dr. Jackie Bhardwaj Erythrocyte distribution width (RBC) [Ratio] 12.9 % Normal 11.0-15.0 [facility] Comment on above: Performed By: #### C BC #### [facility] [address] [place] [address] Dr. Jackie Bhardwaj Hematocrit (Bld) [Volume fraction] 38.5 % Normal 36.0-48.0 [facility] Comment on above: Performed By: #### C BC #### [facility] [address] [place] [address] Dr. Jackie Bhardwaj Hemoglobin (Bld) [Mass/Vol] 12.8 g/dL Normal 12.0-16.0 [facility] Comment on above: Performed By: #### C BC #### [facility] [address] [place] [address] Dr. Jackie Bhardwaj IG # 0.03 10e3/ul Normal 0.00-0.03 [facility] Comment on above: Performed By: #### C BC #### [facility] [address] [place] [address] Dr. Jackie Bhardwaj IG % 0.3 % Normal 0.0-0.5 [facility] Comment on above: Performed By: #### C BC #### [facility] [address] [place] [address] Dr. Jackie Bhardwaj LYMPH # 3.9 103/ul Critically high 1.2-3.8 [facility] Comment on above: Performed By: #### C BC #### [facility] [address] [place] [address] Dr. Jackie Bhardwaj Lymphocytes/100 WBC (Bld) 33.9 % Normal 20.5-60.0 [facility] Comment on above: Performed By: #### C BC #### [facility] [address] [place] [address] Dr. Jackie Bhardwaj MANUAL DIFF REQ NO Normal [facility] Comment on above: Performed By: #### C BC #### [facility] [address] [place] [address] Dr. Jackie Bhardwaj MCH (RBC) [Entitic mass] 31.4 pg Normal 26.7-34.0 [facility] Comment on above: Performed By: #### C BC #### [facility] [address] [place] [address] Dr. Jackie Bhardwaj MCHC (RBC) [Mass/Vol] 33.2 g/dL Normal 29.9-35.2 [facility] Comment on above: Performed By: #### C BC #### [facility] [address] [place] [address] Dr. Jackie Bhardwaj MCV (RBC) [Entitic vol] 94.4 fL Normal 81.0-99.0 [facility] Comment on above: Performed By: #### C BC #### [facility] [address] [place] [address] Dr. Jackie Bhardwaj MONO # 0.7 103/ul Normal 0.3-0.8 [facility] Comment on above: Performed By: #### C BC #### [facility] [address] [address] [address] Jackie Bhardwaj Monocytes/100 WBC (Bld) 5.8 % Normal 1.7-12.0 [facility] Comment on above: Performed By: #### C BC #### [facility] [address] [address] [address] Jackie Bhardwaj NEUT # 6.6 103/ul Critically high 1.4-6.5 [facility] Comment on above: Performed By: #### C BC #### [facility] [address] [address] [address] Jackie Bhardwaj Neutrophils/100 WBC (Bld) 58.0 % Normal 43.0-75.0 [facility] Comment on above: Performed By: #### C BC #### [facility] [address] [address] [address] Jackie Bhardwaj Platelet mean volume (Bld) [Entitic vol] 11.4 fL Normal 9.5-13.5 [facility] Comment on above: Performed By: #### C BC #### [facility] [address] [address] [address] Jackie Bhardwaj PLT 168 103/ul Normal 150-450 [facility] Comment on above: Performed By: #### C BC #### [facility] [address] [address] [address] Jackie Bhardwaj RBC 4.08 106/ul Critically low 4.20-5.40 [facility] Comment on above: Performed By: #### C BC #### [facility] [address] [address] [address] Jackie Bhardwaj WBC 11.4 103/ul Critically high 4.0-11.0 [facility] Comment on above: Performed By: #### C BC #### [facility] [address] [address] [address] Jackie Bhardwaj IRONon 12-29-2021 Iron [Mass/Vol] 41.0 ug/dL Critically low 50.0-170.0 [facility] Comment on above: Performed By: #### P TT, PT #### [facility] [address] [place], [place] [address] Dr. Jackie Bhardwaj US VAC ASST BX BRST LT W CLI Jaya 10-02-2021 US VAC ASST BX BRST LT W CLIP Begin Addendum #1 COLLECTED DATE/TIME: 09/22/2021 09:43 EDT Final Diagnosis Report for [facility] [place], [place] ULTRASOUND GUIDED CORE BIOPSY, LEFT BREAST [...] after pathology results are available. Normal [facility] MAMMO POST BIOPSY LEFTon MAMMO POST BIOPSY LEFT Patient: NIKKI MARTINS Exam Date: 09/22/2021 : 1980 Gender:F Ordering : KP EPPERSON CNP Admission #: [id number] Family : Order #: [id number] CLICK HERE TO VIEW EXAM RADIOLOGY REPORT [...] Nielsen M.D. on 09/22/2021 at 10:14 Normal [facility] Vital Signs Date Time Vital Sign Value Performing Clinician Facility 03-09-2024 08:11-0400 Blood Pressure Location Celeste Sarmini [facility] 03-09-2024 08:11-0400 Diastolic blood pressure 85 mm[Hg] Celeste Sarmini [facility] 03-09-2024 08:11-0400 Heart rate 82 /min Celeste Sarmini [facility] 03-09-2024 08:11-0400 Respiratory rate 16 /min Celeste Sarmini [facility] 03-09-2024 08:11-0400 Systolic blood pressure 132 mm[Hg] Celeste Sarmini [facility] 02-22-2024 15:04-0400 Body height 171.5 cm Cyndi Epperson MEDICAL CUSTOMER SERVICE REPRESENTATIVE Work Phone: [facility] 02-22-2024 15:04-0400 Body mass index (BMI) [Ratio] 19.91 kg/m2 Cyndi Zeenat MEDICAL CUSTOMER SERVICE REPRESENTATIVE Work Phone: [facility] 02-22-2024 15:04-0400 Body temperature 99.39 [degF] Cyndi Zeenat MEDICAL CUSTOMER SERVICE REPRESENTATIVE Work Phone: [facility] 02-22-2024 15:04-0400 Body weight 58.51 kg Cyndi Zeenat MEDICAL CUSTOMER SERVICE REPRESENTATIVE Work Phone: [facility] 02-22-2024 15:04-0400 Diastolic blood pressure 86 mm[Hg] Cyndi Zeenat MEDICAL CUSTOMER SERVICE REPRESENTATIVE Work Phone: [facility] 02-22-2024 15:04-0400 Heart rate 73 /min Cyndi Zeenat MEDICAL CUSTOMER SERVICE REPRESENTATIVE Work Phone: [facility] 02-22-2024 15:04-0400 Respiratory rate 18 /min Cyndi Epperson MEDICAL CUSTOMER SERVICE REPRESENTATIVE Work Phone: [facility] 02-22-2024 15:04-0400 SaO2% (BldA) [Mass fraction] 100 % Cyndi Epperson MEDICAL CUSTOMER SERVICE REPRESENTATIVE Work Phone: [facility] 02-22-2024 15:04-0400 Systolic blood pressure 130 mm[Hg] Cyndi Epperson MEDICAL CUSTOMER SERVICE REPRESENTATIVE Work Phone: [facility] 12-19-2023 23:00-0400 Diastolic blood pressure 91 mm[Hg] Reza Stallingse [facility] 12-19-2023 23:00-0400 Heart rate 63 /min Reza Stallingse [facility] 12-19-2023 23:00-0400 Hourly Rounding Reza Stallingse [facility] 12-19-2023 23:00-0400 Mean blood pressure 107 mm[Hg] Reza Aureliano [facility] 12-19-2023 23:00-0400 Promise to Return Reza Stallingse [facility] 12-19-2023 23:00-0400 SaO2% (BldA) [Mass fraction] 100 % Reza Aureliano [facility] 12-19-2023 23:00-0400 Systolic blood pressure 140 mm[Hg] Reza Aureliano [facility] 12-19-2023 22:00-0400 Diastolic blood pressure 87 mm[Hg] Reza Aureliano [facility] 12-19-2023 22:00-0400 Heart rate 64 /min Reza Aureliano [facility] 12-19-2023 22:00-0400 Hourly Rounding Reza Aureliano [facility] 12-19-2023 22:00-0400 Mean blood pressure 100 mm[Hg] Reza Aureliano [facility] 12-19-2023 22:00-0400 Promise to Return Reza Aureliano [facility] 12-19-2023 22:00-0400 Systolic blood pressure 127 mm[Hg] Reza Aurelinao [facility] 12-19-2023 21:00-0400 Diastolic blood pressure 86 mm[Hg] Reza Aureliano [facility] 12-19-2023 21:00-0400 Heart rate 58 /min Reza Aureliano [facility] 12-19-2023 21:00-0400 Hourly Rounding Reza Aureliano [facility] 12-19-2023 21:00-0400 Mean blood pressure 104 mm[Hg] Reza Aureliano [facility] 12-19-2023 21:00-0400 Promise to Return Reza Aureliano [facility] 12-19-2023 21:00-0400 SaO2% (BldA) [Mass fraction] 99 % Reza Aureliano [facility] 12-19-2023 16:05-0400 Body temperature 98.24 [degF] Reza Aureliano [facility] 12-19-2023 16:05-0400 Heart rate 84 /min Reza Aureliano [facility] 12-19-2023 16:05-0400 Respiratory rate 18 /min Reza Aureliano [facility] Encounters Encounter Date Encounter Type Care Provider Facility Start: 04-19-2024 ambulatory Booker Shelley Facility:[facility] Start: 03-09-2024 End: 03-09-2024 ambulatory Booker Shelley Facility:[facility] Start: 03-09-2024 End: 03-09-2024 Patient encounter procedure Booker Shelley [facility] Start: 03-08-2024 End: 03-08-2024 Refill Cyndi Epperson MEDICAL CUSTOMER SERVICE REPRESENTATIVE Work Phone: [facility] Start: 03-02-2024 End: 03-02-2024 ambulatory SELF Facility:[facility] Start: 03-01-2024 End: 03-01-2024 Orders Only Cyndi Epperson MEDICAL CUSTOMER SERVICE REPRESENTATIVE Work Phone: [facility] Comment on above: Elevated antinuclear antibody (SERA) level (Primary Dx) Start: 02-29-2024 End: 02-29-2024 ambulatory [facility] Start: 02-22-2024 End: 02-22-2024 Office outpatient visit 25 minutes Cyndi Epperson MEDICAL CUSTOMER SERVICE REPRESENTATIVE Work Phone: [facility] Comment on above: Pain of upper abdome n (Primary Dx); Enlarged liver; Panic attack (CMS/HCC); Chest tightness Start: 02-22-2024 End: 02-22-2024 ambulatory CYNDI EPPERSON Not Available Start: 02-22-2024 End: 02-22-2024 Clinisync Result Encounter Cnydi Epperson MEDICAL CUSTOMER SERVICE REPRESENTATIVE Work Phone: [facility] Unsolicited Start: 02-22-2024 End: 02-22-2024 Clinisync Result Encounter Cyndi Epperson MEDICAL CUSTOMER SERVICE REPRESENTATIVE Work Phone: [facility] External Department Unsolicited Start: 02-07-2024 End: 02-07-2024 ambulatory Booker Shelley [place] Start: 02-07-2024 End: 02-07-2024 Patient encounter procedure Booker Shelley [facility] Start: 01-19-2024 End: 01-19-2024 ambulatory Booker Shelley Facility:[facility] Start: 01-11-2024 End: 01-11-2024 ambulatory CYNDI RAZOSANJAY Not Available Start: 01-10-2024 End: 01-10-2024 ambulatory Samuel Lacey [facility] Work Phone: Start: 01-10-2024 End: 01-10-2024 Departed Referred DO Samuel Lacey Work Phone: [facility] Start: 12-26-2023 End: 12-26-2023 ambulatory SAMUEL LACEY Not Available Start: 12-22-2023 End: 12-22-2023 ambulatory CYNDI RAZOSANJAY Not Available Start: 12-20-2023 ambulatory Reza Bedoya [facility] Start: 12-19-2023 End: 12-19-2023 Emergency department patient visit Reza Bedoya [facility] Start: 12-19-2023 ambulatory Reza Bedoya Facility:[facility] Start: 09-17-2022 End: 09-17-[address] WILDER OWENS . Facility:[facility] Start: 04-08-2022 End: 04-09-[address] MIKE JEAN Facility:[facility] Start: 03-22-2022 Encounter for preprocedural laboratory examination DR WILDER OWENS . [facility] Start: 03-22-2022 End: 03-23-2022 Evaluation and management of inpatient DR WILDER OWENS . Facility:[facility] Start: 03-18-2022 End: 03-19-[address] WILDER OWENS . Facility:[facility] Start: 03-18-2022 End: 03-19-2022 Encounter for preprocedural laboratory examination DR WILDER OWENS . Facility:[facility] Start: 03-10-2022 End: 03-11-[address] WILDER OWENS . Facility:[facility] Start: 03-09-2022 End: 03-10-2022 ambulatory KP STEARNSZ Facility:[facility] Start: 02-01-2022 End: 02-01-[address] WILDER OWENS . Facility:[facility] Start: 01-28-2022 ambulatory KP EPPERSON Facil ity:[facility] Start: 01-27-2022 End: 01-28-[address] WILDER OWENS . Facility:[facility] Start: 01-05-2022 End: 01-05-2022 ambulatory OIL BURNER TECHNICIAN CYNDIVenkat EPPERSON Facility:[facility] Start: 12-29-2021 End: 12-30-2021 ambulatory OIL BURNER TECHNICIAN CYNDI JINNYZ Facility:[facility] Start: 11-02-2021 ambulatory OIL BURNER TECHNICIAN CYNDI JINNYZ Facil ity:[facility] Start: 10-29-2021 ambulatory OIL BURNER TECHNICIAN CYNDI AICCORNELLZ Facil ity:[facility] Start: 09-22-2021 End: 09-22-2021 ambulatory OIL BURNER TECHNICIAN CYNDI AICHHOLZ Facility:[facility] Procedures Date Procedure Procedure Detail Performing Clinician Start: 02-22-2024 ALL AMYLASE Cyndi Aichaniyaz MEDICAL CUSTOMER SERVICE REPRESENTATIVE Work Phone: Start: 02-22-2024 ALL C REACTIVE PROTEIN Cyndi Aichholz MEDICAL CUSTOMER SERVICE REPRESENTATIVE Work Phone: Start: 02-22-2024 ALL SED RATE Cyndi Aichaniyaz MEDICAL CUSTOMER SERVICE REPRESENTATIVE Work Phone: Start: 02-22-2024 CCF LIPASE Cyndi Aichholz MEDICAL CUSTOMER SERVICE REPRESENTATIVE Work Phone: Start: 01-30-2024 Mammography Cyndi Aichholz MEDICAL CUSTOMER SERVICE REPRESENTATIVE Work Phone: Start: 01-10-2024 Colonoscopy Cyndi Aichholz MEDICAL CUSTOMER SERVICE REPRESENTATIVE Work Phone: Start: 01-10-2024 Colonoscopy Booker Riveramini Start: 01-10-2024 Esophagogastroduodenoscopic electrohydraulic lithotripsy of bezoar in stomach Celestecaro Riveramini Comment on above: Ana Start: 03-22-2022 Resection of Bilateral Fallopian Tubes, Via Natural or Artificial Opening OIL BURNER TECHNICIAN CYNDI ZEENAT Start: 03-22-2022 Resection of Uterus, Via Natural or Artificial Opening OIL BURNER TECHNICIAN CYNDI ZEENAT History of tonsillectomy Pantera madison Shelley Resection of Bilater al Fallopian Tubes, Via Natural or Artificial Opening Booker Rivreamineryn Resection of Uterus, Via Natural or Artificial Opening Celeste Nicolemini Plan of Treatment Date Care Activity Detail Author Start: 01-09-2034 Screening for malignant neoplasm of colon [facility] Start: 01-29-2025 Screening for malignant neoplasm of breast Mammogram [facility] Start: 03-28-2024 End: 03-28-2024 Patient encounter procedure 03/28/2024 8:40 AM EST Office Visit [facility] [address] [place] [phone] Cyndi Epperson, MEDICAL CUSTOMER SERVICE REPRESENTATIVE [address] [place] [phone] [facility] Start: 02-22-2024 End: 02-21-2025 Amylase [Enzymatic activity/volume] in Serum or Plasma Amylase Lab Routine Pain of upper abdomen Expected: 02/22/2024 (Approximate), Expires: 02/21/2025 [facility] Comment on above: Expected: 02/22/2024 (Approximate), Expi res: 02/21/2025 Start: 02-22-2024 End: 02-21-2025 Antistreptolysin O titer Antistreptolysin O titer Lab Routine Pain of upper abdomen Enlarged liver Expected: 02/22/2024 (Approximate), Expires: 02/21/2025 [facility] Comment on above: Expected: 02/22/2024 (Approximate), Expi res: 02/21/2025 Start: 02-22-2024 End: 02-21-2025 C reactive protein [Mass/volume] in Serum or Plasma C-reactive protein Lab Routine Pain of upper abdomen Enlarged liver Expected: 02/22/2024 (Approximate), Expires: 02/21/2025 [facility] Comment on above: Expected: 02/22/2024 (Approximate), Expi res: 02/21/2025 Start: 02-22-2024 End: 02-21-2025 Erythrocyte sedimentation rate Sedimentation rate, automated Lab Routine Pain of upper abdomen Enlarged liver Expected: 02/22/2024 (Approximate), Expires: 02/21/2025 [facility] Work Phone: Comment on above: Expected: 02/22/2024 (Approximate), Expi res: 02/21/2025 Start: 02-22-2024 End: 02-21-2025 Lipase [Enzymatic activity/volume] in Serum or Plasma Lipase Lab Routine Pain of upper abdomen Expected: 02/22/2024 (Approximate), Expires: 02/21/2025 [facility] Comment on above: Expected: 02/22/2024 (Approximate), Expi res: 02/21/2025 Start: 02-22-2024 End: 02-21-2025 Nuclear Ab [Titer] in Serum by Immunofluorescence SERA Lab Routine Pain of upper abdomen Enlarged liver Expected: 02/22/2024 (Approximate), Expires: 02/21/2025 [facility] Comment on above: Expected: 02/22/2024 (Approximate), Expi res: 02/21/2025 Start: 2008 Screening for malignant neoplasm of cervix HPV/Cotest [facility] Start: 11-23-1999 Screening for malignant neoplasm of cervix Pap Smear [facility] Start: 1978 Screening for malignant neoplasm of colon [facility] Immunizations Immunization Date Immunization Notes Care Provider Fa cility 03-25-2021 SARS-CoV-2 (COVID-19 ) mRNA [id number] TherOx [facility] 03-04-2021 SARS-CoV-2 (COVID-19 ) mRNA BNT-[id number] [employer] Celeste OggiFinogi [facility] 06-01-2013 influenza virus vaccine, unspecified formulation Celeste Nicolemini [facility] 06-01-2013 influenza, seasonal, injectable Cyndi Zeenat CADENA Work Phone: [facility] 09-14-2012 tetanus toxoid, redu hollie diphtheria toxoid, and acellular pertussis vaccine, adsorbed Celeste Nicolemini [facility] Payers Date Payer Category Payer Self-pay [id number] 2023 Private Health Insurance [facility] [id number] 1978 Unknown [id number] 2840.1.590165.3.579 .2.59 1978 Unknown [id number] 2840.1.043219.3.579 .2.59 1978 Unknown [id number] 2.16840.1.851110.3.579 .2.59 1978 Unknown [id number] 2.16840.1.199046.3.579 .2.59 1978 Unknown [id number] 2.16840.1.307445.3.579 .2.59 1978 Unknown [id number] 2.16840.1.655632.3.579 .2.59 1978 Unknown [id number] 2.16.840.1.982379.3.579 .2.593 1978 Unknown [id number] 2.16.840.1.526252.3.579 .259 1978 Unknown [id number] 2.16.840.1.941665.3.579 .259 1978 Unknown [id number] 2.16.840.1.646523.3.579 .259 1978 Unknown [id number] 2.16.840.1.299214.3.579 .259 1978 Unknown [id number] 2.840.1.797486.3.579 .2 1978 Unknown [id number] 2.16.840.1.553113.3.579 .259 1978 Unknown [id number] 2.840.1.160210.3.579 .2 1978 Unknown [id number] 2.16.840.1.812801.3.579 .2 1978 Unknown [id number] 2.16.840.1.293000.3.579 .2 1978 Unknown [id number] 2.16.840.1.398353.3.579 .2 1978 Unknown [id number] 2.16840.1.915058.3.579 .2 1978 Unknown [id number] 2.16.840.1.982622.3.579 .2 1978 Unknown [id number] 2.16.840.1.520623.3.579 .2 1978 Unknown [id number] 2.16.840.1.407611.3.579 .2 1978 Unknown [id number] 2.16.840.1.903002.3.579 .2 1978 Unknown [id number] 2.16.840.1.212219.3.579 .2.9 1978 Unknown [id number] 2.16.840.1.012120.3.579 .2.1258 1978 Unknown [id number] 2.16.840.1.720137.3.579 .2.1258 1978 Unknown [id number] 2.16.840.1.509885.3.579 .2.1258 1978 Unknown [id number] 2.16.840.1.285865.3.579 .2.7 1978 Unknown [id number] 2.16.840.1.463929.3.579 .2. 1978 Unknown [id number] 2.16.840.1.332520.3.579 .2.727 1959 Unknown [id number] 1959 Unknown [id number] Unknown [place] BC/BS [id number] Unknown [id number] 2.16.840.1.051752.3.579 .2.531 Social History Date Type Detail Facility Tobacco smoking status [facility] Start: 02-22-2024 Sex Assigned At Female [facility] Start: 1980 Sex Assigned At Female [facility] Start: 01-19-2024 End: 03-09-2024 Tobacco smoking status Never smoked tobacco (finding) [facility] Tobacco smoking status Never [facility] Start: 12-22-2023 Tobacco smoking status NHIS Ex-smoker [facility] End: 05-09-2020 History of tobacco use Current smoker [facility] End: 05-09-2020 History of tobacco use Cigarette Smoker [facility] Start: 12-22-2023 Tobacco use and exposure Smokeless tobacco non-user [facility] Start: 02-22-2024 Alcoholic beverage intake Ex-drinker (finding) [facility] Start: 02-22-2024 History of Social function [facility] Start: 12-22-2023 Alcohol Comment caffine: 1 cup of coffee daily [facility] Start: 12-22-2023 Gender identity Identifies as female gender (finding) [facility] Start: 12-22-2023 Sexual orientation Heterosexual (finding) [facility] Functional Status Date Assessment Result Facility 03-09-2024 Functional Status N/A [facility] 12-19-2023 Functional Status N/A [facility] Clinical Notes 12-19-2023 to 02-29-2024 Cyndi Epperson, MEDICAL CUSTOMER SERVICE REPRESENTATIVE - 02/22/2024 4:27 PM EDSheryl Epperson, MEDICAL CUSTOMER SERVICE REPRESENTATIVE - 02/22/2024 4:26 PM Davin Epperson, MEDICAL CUSTOMER SERVICE REPRESENTATIVE - 02/22/2024 4:25 PM EDSheryl Epperson, MEDICAL CUSTOMER SERVICE REPRESENTATIVE - 02/22/2024 3:00 PM EDTLaboratoryLaboratory Note Date & Type Note Facility 02-29-2024 [...] November shortly after a camping trip to [place] with her boyfriend who apparently has similar symptoms. She was in [place] for 2 days continuing and swimming. She denies any fresh water consumption. She says since that time she has had epigastric discomfort and bloating and decreased appetite. She says she has lost approximately 15 pounds. She says that she is mostly eating boost and Ensure. She is planning on going to [facility] 02 March for continued evaluation. Currently, she denies fever, chills, night sweats, chest pain, shortness of breath, myalgia, arthralgia, joint swelling, rash. She denies hematochezia. She denies hematuria. She says she has had hair loss. Chzjsvaht-qaogiqdguf-sntdt Past medical history/past surgical history-endometriosis, G3, P4, tonsils, tota hysterectomy 2021 Social history-lives in [place], works at [employer], rare alcohol, quit smoking 3 years ago, [...] parasite DNA. I will check her thyroid [facility] 02-22-2024 History of Present illness Narrative [...] ?GI source, anxiety?? documented in this encounter [facility] 12-20-2023 Note Progress Note-Nurse Patient called requesting [facility] after yesterdays visit. Sent to pharmacy per [facility] 12-20-2023 Hospital Discharge instructions Patient Education 12/19/2023 23:16:40 Hepatomegaly, Zllv-rq-Ovev Hepatomegaly Hepatomegaly is when the liver is [...] asked to do the following: Medicines Take ptnd-riy-bqgwohe and prescription medicines only as told by your doctor. Do not take any new medicine unless your doctor says it is okay. ?This includes vitamins, herbs, supplements, and yjxt-ahs-orsmpmb medicines. Some of these can hurt your [...] provider. Document Revised: 03/24/2022 Document Reviewed: 03/24/2022 [employer] Patient Education 2022 [employer]. 12/19/2023 23:16:40 Abdominal Pain, Adult Abdominal Pain, [...] Follow these instructions at home: Medicines Take zocr-goi-iaqyfks and prescription medicines only as told by [...] Watch your condition for any changes. Take hmkf-yap-pnbkugc and prescription medicines only as told by [...] provider. Document Revised: 06/13/2020 Document Reviewed: 09/03/2019 [employer] Patient Education 2022 [employer]. Follow Up Care 12/19/2023 16:03:37 With:Booker Shelley Address: [address] [place] [address], [facility] [address] [phone] Business (1) When:12/22/2023 With:CYNDI EPPERSON Address: [address] [place] [phone] Business (1) When:Within 3 Day(s) [facility] 12-19-2023 Note ED Patient Education Note [...] to do the following: Medicines ? Take zmlv-rbl-kwggibs and prescription medicines only as told by your doctor. ? Do not take any new medicine unless your doctor says it is okay. ? This includes vitamins, herbs, supplements, and olta-szu-onbhmhc medicines. Some of these can hurt your [...] provider. Document Revised: 03/24/2022 Document Reviewed: 03/24/2022 [employer]ui Patient Education ? 2022 [employer] Abdominal Pain, Adult Pain in the [...] these instructions at home: Medicines ? Take axmx-ivu-snecqvw and prescription medicines only as told by [...] tar. ? You (more content not included)... [facility] Evaluation + Plan note No data available for this section [facility] Evaluation + Plan note Future Appointments Appointment Date:04/19/2024 02:45:00 PM Scheduled Provider:Booker Shelley MD [facility] Appointment Type:[facility] Follow Up Future Scheduled TestsH. pylori Breath Test 01/19/24 [facility] Evaluation + Plan note Future Appointments Appointment Date:03/16/2024 09:00:00 AM Scheduled Provider: Location:[facility] Appointment Type:Surgery FT Future Scheduled TestsH. pylori Breath Test 01/19/24 [facility] Evaluation note No assessment inform ation available [facility] Work Phone: Evaluation note Diagnosis Pain of upper abdomen- Primary Enlarged liver Hepatomegaly Encounter for screening mammogram for malignant neoplasm of breast- Primary Pain of upper abdomen Pain of upper abdomen- Primary Enlarged liver Hepatomegaly Panic attack (CMS/HCC) Panic disorder without agoraphobia Chest tightness Other chest pain documented in this encounter [facility] Diagnosis Pain of upper abdomen- [...] instructions No data available for this section [facility] Progress note No data available for this section [facility] Reason for referral (narrative) Referred by: Booker Shelley MD [facility] Summary Purpose Family History No Family History [...] for this section No Family History Records Found Advance Directives No Advanced Directives Records Found Advance Directive Response Recorded Date/ Time Advance Directives No March 03, 2021 9:55am Additional Source Comments INFORMATION SOURCE (unrecogn ized section and content) DATE CREATED AUTHOR 09/20/2022 [facility] DATE CREATED AUTHOR AUTHOR'S ORGANIZ ATION 12/20/2023 [facility] DATE CREATED AUTHOR AUTHOR'S ORGANIZ ATION 12/21/2023 [facility] DATE CREATED AUTHOR AUTHOR'S ORGANIZ ATION 01/21/2024 [facility] DATE CREATED AUTHOR AUTHOR'S ORGANIZ ATION 02/14/2024 [facility] DATE CREATED AUTHOR AUTHOR'S ORGANIZ ATION 02/25/2024 [facility] DATE CREATED AUTHOR AUTHOR'S ORGANIZ ATION 03/03/2024 [facility] DATE CREATED AUTHOR AUTHOR'S ORGANIZ ATION 03/04/2024 [facility] DATE CREATED AUTHOR AUTHOR'S ORGANIZ ATION 03/14/2024 [facility] Patient Care team informatio n (unrecognized section and content) Team Status: Inactive Member Role Status Dates Samuel Lacey DO Attending Provider Active Star t: January 10, 2024 End: January 10, 2024 Nurse Substance Abuse Relationship Specialty Start Date End Date Rogelio Brown MD [address] [place] [phone] PCP - General Family Medicine 12/12/23 Cyndi Epperson NP [address] [place] [phone] Nurse Practitioner Family Medicine 12/12/23 Nurse Substance Abuse Relationship Specialty Start Date End Date Rogelio Brown MD [address] [place] [phone] PCP - General Family Medicine 12/12/23 Cyndi Epperson NP [address] [place] [phone] Nurse Practitioner Family Medicine 12/12/23 Nurse Substance Abuse Relationship Specialty Start Date End Date Rogelio Brown MD [address] [place] [phone] PCP - General Family Medicine 12/12/23 Cyndi Epperson NP [address] [place] [phone] Nurse Practitioner Family Medicine 12/12/23 Nurse Substance Abuse Relationship Specialty Start Date End Date Rogelio Brown MD [address] [place] [phone] PCP - General Family Medicine 12/12/23 Cyndi Epperson NP [address] [place] [phone] Nurse Practitioner Family Medicine 12/12/23 Goals (unrecognized [...] BE BASED ON THE PRIMARY CLINICAL RECORDS. [facility]. provides no warranty or guarantee of the accuracy or completeness of information in this document.
[2024-03-16 11:22] LABS: TSH W/ REFLEX FT4 0.618 uIU/mL (0.358-3.740)
== END 2024-03-16 10:03 | disposition home or self-care (01) ==
LOC: LAB 10:02
PROVIDERS: PCP Nurse Practitioner
DX: R10.13 Epigastric pain (principal); R63.4 Abnormal weight loss
CPT/HCPCS: 36415; 84443

== ENCOUNTER 2024-05-31 07:44 | Outpatient (OUT) | payer OTHER, SELFPAY ==
--- OUTSIDE RECORDS SUMMARY | 2024-05-31 07:56 | XMS_ITS | CCD ---
Author Organization [facility] Care Team Providers Care Field Director Name Role Phone AICHHOLZ, INDUSTRIAL TECHNICIAN CYNDI Consulting Unavailable AICHHOLZ, INDUSTRIAL TECHNICIAN CYNDI Primary Care Unavailable AICHHOLZ, INDUSTRIAL TECHNICIAN CYNDI Attending Unavailable AICHHOLZ, INDUSTRIAL TECHNICIAN CYNDI Admitting Unavailable ROVERTO, DR RAMYA Rogers Consulting Unavailable KARASIK ., DR HDZ Consulting Unavailabl e AICHHOLZ, INDUSTRIAL TECHNICIAN CYNDI Primary Care Unavailable KARASIK ., DR HDZ Attending Unavailabl e KARASIK ., DR HDZ Admitting Unavailabl e PIPPA LOVING Consulting Unavaila ble GEMNUPUR PENNINGTON Consulting Unavailable KARASIK ., DR HDZ Consulting Unavailabl e AICHHOLZ, INDUSTRIAL TECHNICIAN CYNDI Primary Care Unavailable KARASIK ., DR HDZ Attending Unavailabl e KARASIK ., DR HDZ Admitting Unavailabl e CEDENO, RAMON Consulting Unavailable AICHHOLZ, INDUSTRIAL TECHNICIAN CYNDI Primary Care Unavailable KARASIK ., DR HDZ Attending Unavailabl e KARASIK ., DR HDZ Admitting Unavailabl e AICHHOLZ, INDUSTRIAL TECHNICIAN CYNDI Primary Care Unavailable KARASIK ., DR HDZ Attending Unavailabl e KARASIK ., DR HDZ Admitting Unavailabl e AICHHOLZ, INDUSTRIAL TECHNICIAN CYNDI Primary Care Unavailable KARASIK ., DR DHZ Attending Unavailabl e KARASIK ., DR HDZ Admitting Unavailabl e KARASIK ., DR HDZ Consulting Unavailabl e AICHHOLZ, INDUSTRIAL TECHNICIAN CYNDI Primary Care Unavailable KARASIK ., DR HDZ Attending Unavailabl e KARASIK ., DR HZD Admitting Unavailabl e KARASIK ., DR HDZ Consulting Unavailabl e ESTEPHANIA COWAN Admitting Unavailable AICHHOLZ, INDUSTRIAL TECHNICIAN CYNDI Primary Care Unavailable KARASIK ., DR HDZ Attending Unavailabl e TED, DR MIKE Flores Consulting Unavailable AICHHOLZ, INDUSTRIAL TECHNICIAN CYNDI Primary Care Unavailable AICHHOLZ, INDUSTRIAL TECHNICIAN CYNDI Attending Unavailable AICHHOLZ, INDUSTRIAL TECHNICIAN CYNDI Admitting Unavailable AICHHOLZ, INDUSTRIAL TECHNICIAN CYNDI Consulting Unavailable AICHHOLZ, INDUSTRIAL TECHNICIAN CYNDI Consulting Unavailable AICHHOLZ, INDUSTRIAL TECHNICIAN CYNDI Primary Care Unavailable AICHHOLZ, INDUSTRIAL TECHNICIAN CYNDI Attending Unavailable AICHHOLZ, INDUSTRIAL TECHNICIAN CYNDI Admitting Unavailable AICHHOLZ, INDUSTRIAL TECHNICIAN CYNDI Consulting Unavailable AICHHOLZ, INDUSTRIAL TECHNICIAN CYNDI Primary Care Unavailable AICHHOLZ, INDUSTRIAL TECHNICIAN CYNDI Attending Unavailable AICHHOLZ, INDUSTRIAL TECHNICIAN CYNDI Admitting Unavailable AICHHOLZ, INDUSTRIAL TECHNICIAN CYNDI Consulting Unavailable AICHHOLZ, INDUSTRIAL TECHNICIAN CYNDI Primary Care Unavailable AICHHOLZ, INDUSTRIAL TECHNICIAN CYNDI Attending Unavailable AICHHOLZ, INDUSTRIAL TECHNICIAN CYNDI Admitting Unavailable KARASIK ., DR HDZ Consulting Unavailabl e AICHHOLZ, INDUSTRIAL TECHNICIAN CYNDI Primary Care Unavailable KARASIK ., DR HDZ Attending Unavailabl e KARASIK ., DR HDZ Admitting Unavailabl e KARASIK ., DR HDZ Consulting Unavailabl e AICHHOLZ, INDUSTRIAL TECHNICIAN CYNDI Primary Care Unavailable KARASIK ., DR HDZ Attending Unavailabl e KARASIK ., DR HDZ Admitting Unavailabl e HEATHER SWEENEY Consulting Unavailable KARASIK ., DR HDZ Procedure Practitioner Pina vailable ADINA YIP Consulting Unavailable AICHHOLZ, INDUSTRIAL TECHNICIAN CYNDI Primary Care Unavailable KARASIK ., DR HDZ Attending Unavailabl e KARASIK ., DR HDZ Admitting Unavailabl e AICHHOLZ, CYNDI J Primary Care Physician [phone] Reza Bedoya Attending Unavailable DO Samuel Lacey Attending Provider [phone] Reza Bedoya Attending Unavailable Booker Shelley Attending UnavailBooker Bae Attending UnavailRogelio Duvall MD Primary Care Provider [phone] Aicholz CHEMICALS FERMENTATION OPERATOR, Cyndi Unavailable SELF Referring Unavailable AICHHOLZ, CYNDI KEYA Primary Care Unavailable JONATHAN RUBI Attending Unavailable Booker Shelley Admitting Unavaila Booker Garnica Attending Unavaila ble Sarmini, Celeste Talal Referring Unavaila ble Sarmini, Celeste Talal Attending Unavaila ble Sarmini, Celeste Talal Admitting Unavaila ble Sarmini, Celeste Talal Attending Unavaila ble Sarmini, Celeste Talal Referring Unavaila ble Samuel Lacey DO Attending Provider Weston Isabel MD Attending Provider Samuel Lacey Admitting Unavailable Samuel Lacey Attending Unavailable Maame, Weston Attending Unavailable Weston Isabel Admitting Unavailable Maame, Weston Admitting Unavailable Maame, Weston Attending Unavailable AICHHOLZ, CYNDI Attending Unavailable SHARRONSAMUEL JOHNSON Attending Unavailable AICHHOLZ, CYNDI Attending Unavailable AICHHOLZ, CYNDI Attending Unavailable AICHHOLZ, CYNDI Attending Unavailable AICHHOLZ, CYNDI Attending Unavailable Unavailable Primary Care Provider Unavailabl e PARK, WOOSUP M Referring Unavailable PARK, WOOSUP M Referring Unavailable PARK, WOOSUP M Referring Unavailable PARK, WOOSUP M Referring Unavailable PARK, WOOSUP M Referring Unavailable PARK, WOOSUP M Attending Unavailable Allergies Allergy Classification Reported Allergen(s) Allergy Type Date of Onset Reaction(s) Facility (3 sources) Penicillins; Translations: [PENICILLINS] Drug allergy (disorder) 04-06-20 15 [facility] Repository (1 source) Misc-Other; Translations: [Misc-Other] Propensity to adverse reactions (disorder) 09-18-19 22 [facility] Repository (20 sources) Amoxicillin; Translations: [amoxicillin] Drug Allergy 12-22-19 24 [facility] (20 sources) Acetaminophen / oxyCODONE; Translations: [OXYCODONE-ACETAM INOPHEN] Drug Allergy 12-22-19 24 GI intolerance [facility] (20 sources) Penicillin G Drug Allergy 12-22-19 24 Rash [facility] (1 source) ALLERGIES NOT ON FILE; Translations: [ALLERGIES NOT ON FILE] Propensity to adverse reactions (disorder) [facility] Repository (2 sources) Morphinan opioid; Translations: [OPIOIDS - MORPHINE ANALOGUES] Drug Intolerance 12-14-19 24 Nausea/vomitin g [facility] (1 source) Penicillins Drug Allergy 04-06-20 15 Anaphylaxis, Hives, Rash, Unknown [facility] Work Phone: Medications Current Medications Medication Drug Class(es) Dates Sig (Normalized) Sig (Original) amitriptyline hydrochloride 50 mg oral tablet (20 sources) Tricyclic Antidepressant Start: 03-09-2024 take 1 tablet by mouth at bedtime amitriptyline (Elavil) 50 MG tablet Take 50 mg by mouth at bedtime 03/09/2024 Active Start: 02-10-2024 End: 03-28-2024 take 1 tablet by mouth at bedtime amitriptyline (Elavil) 25 MG tablet Take 25 mg by mouth at bedtime 02/10/2024 03/28/2024 Discontinued (Therapy completed) cholecalciferol 0.025 mg oral tablet (5 sources) Vitamin D take 1 tablet by mouth once daily cholecalciferol (Vitamin D-3) 25 MCG (1000 UT) tablet Take 1 tablet (1,000 Units) by mouth once daily. Active dicyclomine hydrochloride 10 mg oral capsule (20 sources) Anticholinergic Start: 03-18-20 End: 04-17-20 take 1 capsule by mouth every eight hours dicyclomine (Bentyl) 10 MG capsule Indications: Pain of upper abdomen Take 1 capsule (10 mg) by mouth every 8 (eight) hours if needed (abd cramping) 90 capsule 03/18/2024 04/17/2024 Active Start: 01-04-2024 End: 03-07-2024 take 1 capsule by mouth every eight hours dicyclomine (Bentyl) 10 MG capsule Indications: Pain of upper abdomen Take 1 capsule (10 mg) by mouth every 8 (eight) hours if needed (abd pain/cramping) 90 capsule 02/06/2024 03/07/2024 Active Start: 12-22-2023 End: 01-04-2024 take 1 tablet by mouth every six hours dicyclomine (Bentyl) 20 MG tablet Indications: Pain of upper abdomen Take 1 tablet (20 mg) by mouth every 6 (six) hours if needed (abd pain/cramping) for up to 10 days 40 tablet 12/22/2023 01/04/2024 Discontinued (Therapy completed) Start: 12-19-2023 End: 12-26-2023 take 1 capsule by mouth every six hours as needed for muscle spasms Bentyl 10 mg Cap 10 mg = 1 cap(s), Oral, q6hr, PRN Spasm, X 7 day(s), # 30 cap(s), Refills(s) 0, Pharmacy: [facility]/pharmacy #[id number], 170.2, cm, 12/19/23 16:15:00 EDT, Height/Length Dosing, 57.8, kg, 12/19/23 16:15:00 EDT, Weight Dosing Start Date: 12/19/23 Stop Date: 12/26/23 Status: Ordered dicyclomine (Gregor tyl) 20 MG tablet Take 20 mg by mouth every 12 (twelve) hours if needed (abd cramping) Active 12 hr hyoscyamine sulfate 0.375 mg extended release oral tablet (7 sources) Start: 03-06-2024 End: 04-30-2024 take 1 tablet by mouth every twelve hours in the morning hyoscyamine ER (Levbid) 0.375 MG 12 hr tablet Take 375 mcg by mouth in the morning and 375 mcg before bedtime. 03/06/2024 04/30/2024 Discontinued (Therapy completed) omeprazole 20 mg delayed release oral capsule (20 sources) Proton Pump Inhibitor Start: 12-22-2023 End: 06-13-2024 take 1 capsule by mouth in the morning omeprazole (PriLOSEC) [address] capsule Indications: Pain of upper abdomen Take 1 capsule (20 mg) by mouth in the morning and 1 capsule (20 mg) in the evening. Take before meals. 60 capsule 1 05/14/2024 06/13/2024 Active ondansetron 4 mg oral tablet (20 sources) Serotonin-3 Receptor Antagonist Start: 01-19-2024 take 1 tablet by mouth every eight hours as needed for nausea and vomiting ondansetron (Zofran) 4 MG tablet Take 4 mg by mouth every 8 (eight) hours if needed for nausea or vomiting 03/17/2024 Active Start: 12-20-2023 End: 03-28-2024 ondansetron ODT (Zofran-ODT) 4 mg disintegrating tablet Dissolve 1 tablet (4 mg) in the mouth. 12/20/2023 Active pilocarpine hydrochloride 5 mg oral tablet (1 source) Cholinergic Receptor Agonist Start: 05-22-2024 take 1 tablet by mouth four times daily at bedtime as needed pilocarpine (Salagen) 5 mg tablet TAKE 1 TABLET BY MOUTH 4 TIMES A DAY NEEDED (15 MINUTES BEFORE MEALS AND AT BEDTIME) 05/22/2024 Active sucralfate 1000 mg oral tablet (9 sources) Aluminum Complex Start: 02-21-2024 End: 03-28-2024 sucralfate (Carafate) 1 g tablet Take 1 g by mouth 02/21/2024 03/28/2024 Discontinued (Therapy completed) traMADol hydrochloride 50 mg oral tablet (19 sources) Opioid Agonist Start: 12-19-2023 End: 04-30-2024 take 1 tablet by mouth every six hours as needed for pain traMADol (Ultram) 50 MG tablet Take 50 mg by mouth every 6 (six) hours if needed for severe pain Pt is taking half of 50mg (25mg) every 6hrs PRN 12/19/2023 04/30/2024 Discontinued (Therapy completed) vitamin b12 1 mg oral tablet (5 sources) Vitamin B12 take 1 tablet by mouth once daily cyanocobalamin (Vitamin B-12) 1,000 mcg tablet Take 1 tablet (1,000 mcg) by mouth once daily. Active Zofran ODT 4 mg Tab-Dis (4 sources) Start: 12-20-2023 take 1 tablet by mouth three times daily Zofran ODT 4 mg Tab-Dis 4 mg = 1 tab(s), Oral, TID, # 15 tab(s), Refills(s) 0, Pharmacy: [facility]/pharmacy #[id number], 170.2, cm, 12/19/23 16:15:00 EDT, Height/Length Dosing, 57.8, kg, 12/19/23 16:15:00 EDT, Weight Dosing Start Date: 12/20/23 Status: Ordered Problems Active Problems Problem Classification Problem Date Documented Da te Episodic/Chronic Abdominal hernia (4 sources) Hiatal hernia; Translations: [Diaphragmatic hernia without obstruction or gangrene] Onset: 5 05-29-2024 Episodic Abdominal pain (20 sources) Pelvic and perineal pain; Translations: [Abdominal pain] Onset: 2 Episodic Comment on above: Outside Source Comme nt: Last Assessment & Plan: Cont omeprazole and anti spasmodic Has GI appt 01/19/24, Unclear etiology: I do not think all related to HH, ?IBS? ??anxiety Will fu in 6 weeks Anxiety disorders (20 sources) Panic attack; Translations: [Panic disorder [episodic paroxysmal anxiety]] Onset: 4 02-22-2024 Chronic Endometriosis (20 sources) Endometriosis, unspecified; Translations: [Endometriosis (clinical)] Onset: 2 12-22-2023 Chronic Esophageal disorders (11 sources) Gastroesophageal reflux disease; Translations: [Gastro-esophageal reflux disease without esophagitis] Onset: 4 03-08-2024 Chronic Glaucoma (20 sources) Ocular hypertension; Translations: [Ocular hypertension, unspecified eye] Onset: 4 12-22-2023 Chronic Immunizations and screening for infectious disease (20 sources) Encounter for screening for human papillomavirus (HPV); Translations: [Raised antinuclear antibody] Onset: 3 03-01-2024 Episodic Menstrual disorders (20 sources) Dysmenorrhea, unspecified; Translations: [Excessive and frequent menstruation with regular cycle] Onset: 2 Chronic Nonspecific chest pain (18 sources) Tight chest; Translations: [Other chest pain] Onset: 4 02-22-2024 Episodic Other circulatory disease (3 sources) Celiac artery compression syndrome; 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-2024 Chronic Other circulatory disease (2 sources) Celiac artery compression syndrome; 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)] Onset: 5 Chronic Other female genital disorders (4 sources) Unspecified dyspareunia; Translations: [UNSPECIFIED DYSPAREUNIA] Onset: 2 Chronic Other gastrointestinal disorders (11 sources) Dysphagia; Translations: [Dysphagia, unspecified] Onset: 4 03-08-2024 Episodic Residual codes; unclassified (2 sources) Family history of malignant neoplasm of digestive organ; Translations: [Family history of malignant neoplasm of digestive organs] Onset: 4 Episodic Residual codes; unclassified (11 sources) Family history of malignant neoplasm of pancreas; Translations: [Family history of malignant neoplasm of digestive organs] Onset: 4 03-08-2024 Episodic Unclassified (1 source) PERSONAL HISTORY [...] left breast] Onset: 09-22-2021 Episodic Nutritional deficiencies (20 sources) Iron deficiency; Translations: [Iron deficiency] Onset: 03-09-2022 Episodic Other eye disorders (20 sources) Myogenic ptosis; 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] Onset: 12-22-2023 12-22-2023 Episodic Other liver diseases (20 sources) Large liver; Translations: [Hepatomegaly, not elsewhere classified] Onset: 12-19-2023 Episodic Other screening for suspected conditions (not mental disorders or infectious disease) (20 sources) Encounter for screening for malignant neoplasm of cervix; Translations: [Other abnormal and inconclusive findings on diagnostic imaging of breast] Onset: 04-08-2022 Episodic Screening and history of mental health and substance abuse codes (1 source) Personal history of nicotine dependence; Translations: [PERSONAL HISTORY OF NICOTINE DEPEND] Onset: 03-30-2022 Episodic Unclassified (1 source) CONTACT W/AND (SUSP) EXPOS COVID-19; Translations: [CONTACT W/AND (SUSP) EXPOS COVID-19] Onset: 01-05-2022 Unclassified (1 source) Onset: 05-29-2024 05-29-2024 Results Test Name Value Interpretation Reference Range Facility CT TRANSFER OF OUTSIDE FILMS on 05-17-2024 CT TRANSFER OF OUTSIDE FILMS Outside images for comparison or treatment purposes, not interpreted by Radiologists. [facility] NM TRANSFER OF OUTSIDE FILMS on 05-17-2024 NM TRANSFER OF OUTSIDE FILMS Outside images for comparison or treatment purposes, not interpreted by Radiologists. [facility] Study Interpretation of outs adriana studyon 05-17-2024 Outside images for comparison or treatment purposes, not interpreted by Radiologists. IMAGING Outside images for comparison or treatment purposes, not interpreted by Radiologists. IMAGING Outside images for comparison or treatment purposes, not interpreted by Radiologists. IMAGING Outside images for comparison or treatment purposes, not interpreted by Radiologists. IMAGING Outside images for comparison or treatment purposes, not interpreted by Radiologists. IMAGING US TRANSFER OF OUTSIDE FILMS on 05-17-2024 US TRANSFER OF OUTSIDE FILMS Outside images for comparison or treatment purposes, not interpreted by Radiologists. [facility] US TRANSFER OF OUTSIDE FILMS Outside images for comparison or treatment purposes, not interpreted by Radiologists. [facility] XR TRANSFER OF OUTSIDE FILMS on 05-17-2024 XR TRANSFER OF OUTSIDE FILMS Outside images for comparison or treatment purposes, not interpreted by Radiologists. [facility] Appearance of UrineOrdered B y: Weston Isabel on 03-27-2024 Appearance (U) Urine appearance Clear [facility] Bacteria [Presence] in Urine by AutomatedOrdered By: Weston Isabel on 03-27-2024 Bacteria Auto Ql (U) Bacteria [Presence] in Urine by Automated None Seen [facility] Basophils Auto (Bld) [#/Vol] Ordered By: Weston Isabel on 03-27-2024 Basophils (Bld) [#/Vol] Automated basophil count 0.0-0.2 [facility] Basophils/100 WBC Auto (Bld) Ordered By: Weston Isabel on 03-27-2024 Basophils/100 WBC (Bld) Automated basophil % . [facility] Bilirubin Test strip Ql (U)O rdered By: Weston Isabel on 03-27-2024 Bilirubin Ql (U) Bilirubin.total [Presence] in Urine by Test strip Negative [facility] Color Auto (U)Ordered By: Anna Isabel on 03-27-2024 Color (U) Color of Urine by Auto Yellow [facility] Complement C3on 03-27-2024 Complement C3 97 mg/dL Normal 82-167 [facility] Comment on above: Result Comment: Perf ormed at: [facility] [id number] Loop Tacker: Igor Galarza PhD, Phone: [phone] Performed By: #### C BC, CK, MISC2 LAB, CREAT, ADDONUAPLUS #### [address] #### C3, C4, RNA POLYMR, MITOM2, CH50 #### [facility] , Complement C4on 03-27-2024 Complement C4 22 mg/dL Normal 12-38 [facility] Comment on above: Result Comment: PERF ORMED BY: [place] [id number] PATHOLOGIST SKIRT PANEL ASSEMBLER DANICA MORA M.D. Performed By: #### C BC, CK, MISC2 LAB, CREAT, ADDONUAPLUS #### [address] #### C3, C4, RNA POLYMR, MITOM2, CH50 #### [facility] , Complement Total (CH50)on Complement Total (CH50) 45 Normal >41 [facility] Comment on above: Result Comment: Age Male Female 1 - 30 days Not Estab. Not Estab. 31 days - 6 months >32 >20 7 months - 17 years >39 >39 >17 years >41 >41 NOTE: The adult ( >17 years ) reference interval range is used to flag abnormals on this report. If the patient is 17 years old or younger, use the table above to determine out of range values. Performed at: [facility] [address] [place] [id number] Loop Tacker: Igor Galarza PhD, Phone: [phone] PERFORMED BY: [place] [id number] PATHOLOGIST SKIRT PANEL ASSEMBLER DANICA MORA M.D. Performed By: #### C BC, CK, MISC2 LAB, CREAT, ADDONUAPLUS #### [address] #### C3, C4, RNA POLYMR, MITOM2, CH50 #### [facility] , Complete Blood Count Auto Di ffon 03-27-2024 Basophils (Bld) [#/Vol] 0.0 10*3/uL Normal 0.0-0.2 [facility] Comment on above: Result Comment: PERF ORMED BY: [place] [id number] PATHOLOGIST SKIRT PANEL ASSEMBLER DANICA MORA M.D. Performed By: #### C BC, CK, MISC2 LAB, CREAT, ADDONUAPLUS #### [address] #### C3, C4, RNA POLYMR, MITOM2, CH50 #### [facility] , Basophils/100 WBC (Bld) 0.6 % Normal . [facility] Comment on above: Performed By: #### C BC, CK, MISC2 LAB, CREAT, ADDONUAPLUS #### [address] #### C3, C4, RNA POLYMR, MITOM2, CH50 #### [facility] , Eosinophils (Bld) [#/Vol] 0.1 10*3/uL Normal 0.0-0.45 [facility] Comment on above: Performed By: #### C BC, CK, MISC2 LAB, CREAT, ADDONUAPLUS #### [place] [address] [place] #### C3, C4, RNA POLYMR, MITOM2, CH50 #### [facility] , Eosinophils/100 WBC (Bld) 1.0 % Normal . [facility] Comment on above: Performed By: #### C BC, CK, MISC2 LAB, CREAT, ADDONUAPLUS #### [address] #### C3, C4, RNA POLYMR, MITOM2, CH50 #### [facility] , Erythrocyte distribution width (RBC) [Ratio] 12.4 % Normal 11.9-15.3 [facility] Comment on above: Performed By: #### C BC, CK, MISC2 LAB, CREAT, ADDONUAPLUS #### [address] #### C3, C4, RNA POLYMR, MITOM2, CH50 #### [facility] , Hematocrit (Bld) [Volume fraction] 41.0 % Normal 34.0-46.4 [facility] Comment on above: Performed By: #### C BC, CK, MISC2 LAB, CREAT, ADDONUAPLUS #### [address] #### C3, C4, RNA POLYMR, MITOM2, CH50 #### [facility] , Hemoglobin (Bld) [Mass/Vol] 14.3 g/dL Normal 11.8-15.4 [facility] Comment on above: Performed By: #### C BC, CK, MISC2 LAB, CREAT, ADDONUAPLUS #### [address] #### C3, C4, RNA POLYMR, MITOM2, CH50 #### [facility] , Lymphocytes (Bld) [#/Vol] 1.8 10*3/uL Normal 1.00-4.8 [facility] Comment on above: Performed By: #### C BC, CK, MISC2 LAB, CREAT, ADDONUAPLUS #### [place] [address] [place] #### C3, C4, RNA POLYMR, MITOM2, CH50 #### [facility] , Lymphocytes/100 WBC (Bld) 27.7 % Normal . [facility] Comment on above: Performed By: #### C BC, CK, MISC2 LAB, CREAT, ADDONUAPLUS #### [address] #### C3, C4, RNA POLYMR, MITOM2, CH50 #### [facility] , MCH (RBC) [Entitic mass] 31.5 pg Normal 24.7-34.3 [facility] Comment on above: Performed By: #### C BC, CK, MISC2 LAB, CREAT, ADDONUAPLUS #### [address] #### C3, C4, RNA POLYMR, MITOM2, CH50 #### [facility] , MCV (RBC) [Entitic vol] 90.2 fL Normal 80-100 [facility] Comment on above: Performed By: #### C BC, CK, MISC2 LAB, CREAT, ADDONUAPLUS #### [address] #### C3, C4, RNA POLYMR, MITOM2, CH50 #### [facility] , Mean Corpuscular HGB Conc 34.9 g/dL Normal 32.0-35.0 [facility] Comment on above: Performed By: #### C BC, CK, MISC2 LAB, CREAT, ADDONUAPLUS #### [address] #### C3, C4, RNA POLYMR, MITOM2, CH50 #### [facility] , Monocytes (Bld) [#/Vol] 0.3 10*3/uL Normal 0.0-0.8 [facility] Comment on above: Performed By: #### C BC, CK, MISC2 LAB, CREAT, ADDONUAPLUS #### [place] [address] [place] #### C3, C4, RNA POLYMR, MITOM2, CH50 #### [facility] , Monocytes/100 WBC (Bld) 5.1 % Normal . [facility] Comment on above: Performed By: #### C BC, CK, MISC2 LAB, CREAT, ADDONUAPLUS #### [address] #### C3, C4, RNA POLYMR, MITOM2, CH50 #### [facility] , Neutrophils (Bld) [#/Vol] 4.4 10*3/uL Normal 1.8-7.7 [facility] Comment on above: Performed By: #### C BC, CK, MISC2 LAB, CREAT, ADDONUAPLUS #### [place] [address] [place] #### C3, C4, RNA POLYMR, MITOM2, CH50 #### [facility] , Neutrophils/100 WBC (Bld) 65.6 % Normal . [facility] Comment on above: Performed By: #### C BC, CK, MISC2 LAB, CREAT, ADDONUAPLUS #### [address] #### C3, C4, RNA POLYMR, MITOM2, CH50 #### [facility] , NRBC% 0.2 /100{WBC} Normal 0-0.5 [facility] Comment on above: Performed By: #### C BC, CK, MISC2 LAB, CREAT, ADDONUAPLUS #### [place] [address] [place] #### C3, C4, RNA POLYMR, MITOM2, CH50 #### [facility] , Platelet mean volume (Bld) [Entitic vol] 8.9 fL Normal 6.3-10.[address] [facility] Comment on above: Performed By: #### C BC, CK, MISC2 LAB, CREAT, ADDONUAPLUS #### [address] #### C3, C4, RNA POLYMR, MITOM2, CH50 #### [facility] , Platelets (Bld) [#/Vol] 151 10*3/uL Normal 150-450 [facility] Comment on above: Performed By: #### C BC, CK, MISC2 LAB, CREAT, ADDONUAPLUS #### [address] #### C3, C4, RNA POLYMR, MITOM2, CH50 #### [facility] , RBC (Bld) [#/Vol] 4.55 10*6/uL Normal 3.60-5.00 [facility] Comment on above: Performed By: #### C BC, CK, MISC2 LAB, CREAT, ADDONUAPLUS #### [address] #### C3, C4, RNA POLYMR, MITOM2, CH50 #### [facility] , WBC (Bld) [#/Vol] 6.6 10*3/uL Normal 3.8-11.6 [facility] Comment on above: Performed By: #### C BC, CK, MISC2 LAB, CREAT, ADDONUAPLUS #### [address] [address] #### C3, C4, RNA POLYMR, MITOM2, CH50 #### [facility] , Creatine Kinaseon 03-27-2024 CK [Catalytic activity/Vol] 63 U/L Normal 30-223 [facility] Comment on above: Result Comment: PERF ORMED BY: [place] [address] PATHOLOGIST SKIRT PANEL ASSEMBLER DANICA MORA M.D. Performed By: #### C BC, CK, MISC2 LAB, CREAT, ADDONUAPLUS #### [place] [address] [place] #### C3, C4, RNA POLYMR, MITOM2, CH50 #### [facility] , Creatine kinase [Enzymatic a ctivity/volume] in Serum or PlasmaOrdered By: Weston Isabel on 03-27-2024 CK [Catalytic activity/Vol] Creatine kinase [Enzymatic activity/volume] in Serum or Plasma 30-223 [facility] Creatinineon 03-27-2024 Creatinine [Mass/Vol] 0.93 mg/dL Normal 0.60-1.20 [facility] Comment on above: Performed By: #### C BC, CK, MISC2 LAB, CREAT, ADDONUAPLUS #### [address] #### C3, C4, RNA POLYMR, MITOM2, CH50 #### [facility] , GFR/1.73 sq M.predicted MDRD (S/P/Bld) [Vol rate/Area] mL/min/{1.73_m2} Normal [facility] Comment on above: Result Comment: PERF ORMED BY: [place] [address] PATHOLOGIST SKIRT PANEL ASSEMBLER DANICA MORA M.D. Performed By: #### C BC, CK, MISC2 LAB, CREAT, ADDONUAPLUS #### [address] #### C3, C4, RNA POLYMR, MITOM2, CH50 #### [facility] , Creatinine [Mass/volume] in Serum or PlasmaOrdered By: Weston Isabel on 03-27-2024 Creatinine [Mass/Vol] Creatinine [Mass/volume] in Serum or Plasma 0.60-1.20 [facility] Dipstick and Microscopicon 1 05-27-2023 Appearance (U) Clear Normal Clear [facility] Comment on above: Order Comment: Name Collection Type:: Clean-Voided Midstream Performed By: #### C BC, CK, MISC2 LAB, CREAT, ADDONUAPLUS #### [address] #### C3, C4, RNA POLYMR, MITOM2, CH50 #### [facility] , Bacteria,Urine None Seen Normal None Seen [facility] Comment on above: Order Comment: Name Collection Type:: Clean-Voided Midstream Performed By: #### C BC, CK, MISC2 LAB, CREAT, ADDONUAPLUS #### [address] #### C3, C4, RNA POLYMR, MITOM2, CH50 #### [facility] , Bilirubin,Urine Negative Normal Negative [facility] Comment on above: Order Comment: Name Collection Type:: Clean-Voided Midstream Performed By: #### C BC, CK, MISC2 LAB, CREAT, ADDONUAPLUS #### [address] #### C3, C4, RNA POLYMR, MITOM2, CH50 #### [facility] , Color (U) Light-Yellow Normal Yellow The [facility] Comment on above: Order Comment: Name Collection Type:: Clean-Voided Midstream Performed By: #### C BC, CK, MISC2 LAB, CREAT, ADDONUAPLUS #### [address] #### C3, C4, RNA POLYMR, MITOM2, CH50 #### [facility] , Glucose Ql (U) Normal Normal Normal [facility] Comment on above: Order Comment: Name Collection Type:: Clean-Voided Midstream Performed By: #### C BC, CK, MISC2 LAB, CREAT, ADDONUAPLUS #### [address] #### C3, C4, RNA POLYMR, MITOM2, CH50 #### [facility] , Hyaline Casts,Urine None Normal 0-8 [facility] Comment on above: Order Comment: Name Collection Type:: Clean-Voided Midstream Result Comment: PERF ORMED BY: [place] [address] PATHOLOGIST SKIRT PANEL ASSEMBLER DANICA MORA M.D. Performed By: #### C BC, CK, MISC2 LAB, CREAT, ADDONUAPLUS #### [address] #### C3, C4, RNA POLYMR, MITOM2, CH50 #### [facility] , Ketones Ql (U) Negative Normal Negative [facility] Comment on above: Order Comment: Name Collection Type:: Clean-Voided Midstream Performed By: #### C BC, CK, MISC2 LAB, CREAT, ADDONUAPLUS #### [place] [address] [place] #### C3, C4, RNA POLYMR, MITOM2, CH50 #### [facility] , Leukocyte esterase Test strip Ql (U) Negative Normal Negative [facility] Comment on above: Order Comment: Name Collection Type:: Clean-Voided Midstream Performed By: #### C BC, CK, MISC2 LAB, CREAT, ADDONUAPLUS #### [place] [address] [place] #### C3, C4, RNA POLYMR, MITOM2, CH50 #### [facility] , Nitrite,Urine Negative Normal Negative [facility] Comment on above: Order Comment: Name Collection Type:: Clean-Voided Midstream Performed By: #### C BC, CK, MISC2 LAB, CREAT, ADDONUAPLUS #### [address] #### C3, C4, RNA POLYMR, MITOM2, CH50 #### [facility] , Occult Blood,Urine Negative Normal Negative [facility] Comment on above: Order Comment: Name Collection Type:: Clean-Voided Midstream Performed By: #### C BC, CK, MISC2 LAB, CREAT, ADDONUAPLUS #### [address] #### C3, C4, RNA POLYMR, MITOM2, CH50 #### [facility] , pH (U) 5.5 [pH] Normal 5.0-9.0 [facility] Comment on above: Order Comment: Name Collection Type:: Clean-Voided Midstream Performed By: #### C BC, CK, MISC2 LAB, CREAT, ADDONUAPLUS #### [address] #### C3, C4, RNA POLYMR, MITOM2, CH50 #### [facility] , Protein,Urine Negative Normal Negative [facility] Comment on above: Order Comment: Name Collection Type:: Clean-Voided Midstream Performed By: #### C BC, CK, MISC2 LAB, CREAT, ADDONUAPLUS #### [address] #### C3, C4, RNA POLYMR, MITOM2, CH50 #### [facility] , RBC,Urine 1 [HPF] Normal 0-4 [facility] Comment on above: Order Comment: Name Collection Type:: Clean-Voided Midstream Performed By: #### C BC, CK, MISC2 LAB, CREAT, ADDONUAPLUS #### [address] #### C3, C4, RNA POLYMR, MITOM2, CH50 #### [facility] , Specificy [place],Urine 1.019 Normal 1.001-1.030 [facility] Comment on above: Order Comment: Name Collection Type:: Clean-Voided Midstream Performed By: #### C BC, CK, MISC2 LAB, CREAT, ADDONUAPLUS #### [address] [place] [address] [place] #### C3, C4, RNA POLYMR, MITOM2, CH50 #### [facility] , Squamous Epithelial Cell,Urine 1 [HPF] Normal 0-2 [facility] Comment on above: Order Comment: Name Collection Type:: Clean-Voided Midstream Performed By: #### C BC, CK, MISC2 LAB, CREAT, ADDONUAPLUS #### [address] #### C3, C4, RNA POLYMR, MITOM2, CH50 #### [facility] , Urobilinogen,Urine Normal Normal Normal [facility] Comment on above: Order Comment: Name Collection Type:: Clean-Voided Midstream Performed By: #### C BC, CK, MISC2 LAB, CREAT, ADDONUAPLUS #### [address] #### C3, C4, RNA POLYMR, MITOM2, CH50 #### [facility] , WBC,Urine 1 [HPF] Normal 0-4 [facility] Comment on above: Order Comment: Name Collection Type:: Clean-Voided Midstream Performed By: #### C BC, CK, MISC2 LAB, CREAT, ADDONUAPLUS #### [address] #### C3, C4, RNA POLYMR, MITOM2, CH50 #### [facility] , Eosinophils Auto (Bld) [#/Vo l]Ordered By: Weston Isabel on 03-27-2024 Eosinophils (Bld) [#/Vol] Automated eosinophil count 0.0-0.45 [facility] Eosinophils/100 WBC Auto (Bl d)Ordered By: Weston Isabel on 03-27-2024 Eosinophils/100 WBC (Bld) Automated eosinophil % . [facility] Epithelial cells.squamous [# /area] in Urine sediment by Automated countOrdered By: Weston Isabel on 03-27-2024 Epithelial cells.squamous Auto (Urine sed) [#/Area] Epithelial cells.squamous [#/area] in Urine sediment by Automated count 0-2 [facility] Erythrocyte distribution wid th Auto (RBC) [Ratio]Ordered By: Weston Isabel on 03-27-2024 Erythrocyte distribution width (RBC) [Ratio] Erythrocyte distribution width [Ratio] by Automated count 11.9-15.3 [facility] Erythrocytes [#/area] in Uri ne sediment by Automated countOrdered By: Weston Isabel on 03-27-2024 RBC Auto (Urine sed) [#/Area] Erythrocytes [#/area] in Urine sediment by Automated count 0-4 [facility] Glucose [Mass/volume] in Uri ne by Test stripOrdered By: Weston Isabel on 03-27-2024 Glucose Test strip (U) [Mass/Vol] Glucose [Mass/volume] in Urine by Test strip Normal [facility] Hematocrit Auto (Bld) [Volum e fraction]Ordered By: Weston Isabel on 03-27-2024 Hematocrit (Bld) [Volume fraction] Hematocrit [Volume Fraction] of Blood by Automated count 34.0-46.4 [facility] Hemoglobin Test strip Ql (U) Ordered By: Weston Isabel on 03-27-2024 Hemoglobin Ql (U) Hemoglobin [Presence] in Urine by Test strip Negative [facility] Hemoglobin [Mass/volume] in BloodOrdered By: Weston Isabel on 03-27-2024 Hemoglobin (Bld) [Mass/Vol] Hemoglobin [Mass/volume] in Blood 11.8-15.4 [facility] Hyaline casts [#/area] in Ur ine sediment by Automated countOrdered By: Weston Isabel on 03-27-2024 Hyaline casts Auto (Urine sed) [#/Area] Hyaline casts [#/area] in Urine sediment by Automated count 0-8 [facility] Ketones Test strip Ql (U)Ord ered By: Weston Isabel on 03-27-2024 Ketones Ql (U) Ketones [Presence] in Urine by Test strip Negative [facility] Leukocyte esterase [Presence ] in Urine by Test stripOrdered By: Weston Isabel on 03-27-2024 Leukocyte esterase Test strip Ql (U) Leukocyte esterase [Presence] in Urine by Test strip Negative [facility] Leukocytes [#/area] in Urine sediment by Automated countOrdered By: Weston Isabel on 03-27-2024 WBC Auto (Urine sed) [#/Area] Leukocytes [#/area] in Urine sediment by Automated count 0-4 [facility] Leukocytes [#/volume] correc mamie for nucleated erythrocytes in Blood by Automated counOrdered By: Weston Isabel on 03-27-2024 WBC corrected for nucl RBC Auto (Bld) [#/Vol] Leukocytes [#/volume] corrected for nucleated erythrocytes in Blood by Automated coun 3.8-11.6 [facility] Lymphocytes Auto (Bld) [#/Vo l]Ordered By: Weston Isabel on 03-27-2024 Lymphocytes (Bld) [#/Vol] Lymphocytes [#/volume] in Blood by Automated count 1.00-4.8 [facility] Lymphocytes/100 WBC Auto (Bl d)Ordered By: Weston Isabel on 03-27-2024 Lymphocytes/100 WBC (Bld) Lymphocytes/100 leukocytes in Blood by Automated count . [facility] MCH Auto (RBC) [Entitic mass ]Ordered By: Weston Isabel on 03-27-2024 MCH (RBC) [Entitic mass] MCH [Entitic mass] by Automated count 24.7-34.3 [facility] MCHC Auto (RBC) [Mass/Vol]Or dered By: Weston Isabel on 03-27-2024 MCHC (RBC) [Mass/Vol] MCHC [Mass/volume] by Automated count 32.0-35.0 [facility] MCV Auto (RBC) [Entitic vol] Ordered By: Weston Isabel on 03-27-2024 MCV (RBC) [Entitic vol] MCV [Entitic volume] by Automated count 80-100 [facility] MISC2 LABon 03-27-2024 MISC2 LAB Normal [facility] Comment on above: Order Comment: Misc 2 Test Name: TEST# [id number] NPX-2 Result Comment: See report. Scanned copy available in EMR. PERFORMED BY: [address] [place] [address] PATHOLOGIST SKIRT PANEL ASSEMBLER DANICA MORA M.D. Performed By: #### C BC, CK, MISC2 LAB, CREAT, ADDONUAPLUS #### [facility] [address] [place] [address] [place] #### C3, C4, RNA POLYMR, MITOM2, CH50 #### [facility] , Mitochondrial (M2) Antibodyo n 03-27-2024 Mitochondrial (M2) Antibody <20.0 Normal 0.0-20.0 [facility] Comment on above: Result Comment: Nega tive 0.0 - 20.0 Equivocal 20.1 - 24.9 Positive >24.9 Mitochondrial (M2) Antibodies are found in 90-96% of patients with primary biliary cirrhosis. Performed at: [facility] [address] [id number] Loop Tacker: Igor Galarza PhD, Phone: [phone] Performed By: #### C BC, CK, MISC2 LAB, CREAT, ADDONUAPLUS #### [facility] [address] [place] [address] #### C3, C4, RNA POLYMR, MITOM2, CH50 #### [facility] , Monocytes Auto (Bld) [#/Vol] Ordered By: Weston Isabel on 03-27-2024 Monocytes (Bld) [#/Vol] Automated blood monocyte count 0.0-0.8 [facility] Monocytes/100 WBC Auto (Bld) Ordered By: Weston Isabel on 03-27-2024 Monocytes/100 WBC (Bld) Automated monocyte % . [facility] Neutrophils Auto (Bld) [#/Vo l]Ordered By: Weston Isabel on 03-27-2024 Neutrophils (Bld) [#/Vol] Neutrophils [#/volume] in Blood by Automated count 1.8-7.7 [facility] Neutrophils/100 WBC Auto (Bl d)Ordered By: Weston Isabel on 03-27-2024 Neutrophils/100 WBC (Bld) Automated neutrophil % . [facility] Nitrite Test strip Ql (U)Ord ered By: Weston Isabel on 03-27-2024 Nitrite Ql (U) Nitrite [Presence] in Urine by Test strip Negative [facility] No Panel InformationOrdered By: Weston Isabel on 03-27-2024 Estimated GFR (CKD-EPI) > 60.0 mL/Min [facility] Creatinine Clearance (Chem N/A [facility] Nucleated erythrocytes [Pres ence] in Blood by Automated countOrdered By: Weston Isabel on 03-27-2024 Nucleated RBC Auto Ql (Bld) Nucleated erythrocytes [Presence] in Blood by Automated count 0-0.5 [facility] Platelet mean volume Auto (B ld) [Entitic vol]Ordered By: Weston Isabel on 03-27-2024 Platelet mean volume (Bld) [Entitic vol] Platelet mean volume [Entitic volume] in Blood by Automated count 6.3-10.7 [facility] Platelets Auto (Bld) [#/Vol] Ordered By: Weston Isabel on 03-27-2024 Platelets (Bld) [#/Vol] Platelets [#/volume] in Blood by Automated count 150-450 [facility] Protein Test strip (U) [Mass /Vol]Ordered By: Weston Isabel on 03-27-2024 Protein (U) [Mass/Vol] Protein [Mass/volume] in Urine by Test strip Negative [facility] RBC Auto (Bld) [#/Vol]Ordere d By: Weston Isabel on 03-27-2024 RBC (Bld) [#/Vol] Erythrocytes [#/volume] in Blood by Automated count 3.60-5.00 [facility] RNA Polymerase IIion 024 RNA Polymerase IIi <20 Normal <20 [facility] Comment on above: Result Comment: Nega tive: <20 Weak Positive: 20 - 39 Moderate Positive: 40 - 80 Strong Positive: >80 Performed at: [facility] [address] [place] [id number] Loop Tacker: Robert Lee MD, Phone: [phone] PERFORMED BY: [facility] [address] [place] [address] PATHOLOGIST SKIRT PANEL ASSEMBLER DANICA MORA M.D. Performed By: #### C BC, CK, MISC2 LAB, CREAT, ADDONUAPLUS #### [facility] [address] #### C3, C4, RNA POLYMR, MITOM2, CH50 #### [facility] , Specific gravity Test strip (U) [Rel density]Ordered By: Weston Isabel on 03-27-2024 Specific gravity (U) [Rel density] Specific gravity of Urine by Test strip 1.001-1.030 [facility] Urobilinogen Test strip (U) [Mass/Vol]Ordered By: Weston Isabel on 03-27-2024 Urobilinogen (U) [Mass/Vol] Urobilinogen [Mass/volume] in Urine by Test strip Normal [facility] WBC Auto (Bld) [#/Vol]Ordere d By: Weston Isabel on 03-27-2024 WBC (Bld) [#/Vol] Leukocytes [#/volume] in Blood by Automated count 3.8-11.6 [facility] pH Test strip (U)Ordered By: Weston Isabel on 03-27-2024 pH (U) pH of Urine by Test strip 5.0-9.0 [facility] TSH W/REFLEX T4on 03-16-2024 TSH Qn 0.618 m[IU]/L [facility] Provider Letteron 03-13-2024 Provider Letter Provider Letter March 13, 20[address] [place] [id number] : 1980 Dear Nikki, We received a call from stating they have tried to reach you regarding your referral to Dr. Hossein Cohen (Michael), doctor of vascular surgery for your new diagnosis of MALS. You can call to schedule with Dr. Cohen's fish hatchery assistant, Yvonne, at office #: [phone]. Dr. Cohen's address: [address] [place] [address] Please call the office with any questions or concerns. Thank you, [facility] [phone] [facility] Ambulatory Visit Summaryon 1 1-01-2024 Ambulatory Visit Summary Ambulatory Visit Summary NIKKI MARTINS :1980 Visit Date:03/09/2024 Ambulatory Visit Instructions Your Diagnosis Abdominal pain Large liver Family history of pancreatic cancer Your Care Team Attending Physician - Daphney MCKINLEY, Booker Jnekins Primary Care Physician - CYNDI EPPERSON CNP [...] day (at bedtime) Refills: 3 Pick[address] [facility]/pharmacy #[id number] Unchanged dicyclomine (dicyclomine 10 mg Cap) [...] physician if questions or concerns Pharmacy Information [facility]/pharmacy #[id number]: [address] [place], [place] [id number] [phone] Allergies amoxicillin (Unkempt) Problems Ongoing - Any [...] for choosing us for your care. Normal [facility] Gastroenterology Office/Clin ic Noteon 03-09-2024 Gastroenterology Office/Clinic Note Gastroenterology Office/Clinic Note Chief Complaint epigastric to belly button, and right sided pain. 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 Taking Amitriptyline - helping nausea but not pain. US completed at [facility] - see below. Seen @ [place] ED 03/06/24 for abdominal pain. ED stopped [...] in the future US mesenteric 03/02/24 @ CC: IMPRESSION AORTA Patent. MESENTERIC VESSELS Celiac: Evidence of dynamic elevated velocities due to median arcuate ligament compression. Hepatic: Not evaluated. Splenic: Not evaluated. Superior mesenteric artery: 0-69% stenosis. No evidence of hemodynamically significant stenosis. Inferior mesenteric artery: 0-69% stenosis. No evidence of hemodynamically significant stenosis. [facility] 02/07/24: IMPRESSION: ESSENTIALLY NORMAL GASTRIC EMPTYING. EGD/Colon 01/10/24 @ [place]: Normal colon Normal EGD - random biopsies for H pylori Pathology: -H. pylori immunostain with appropriate control is also negative for identified Helicobacter organism or infection CT 12/15/23 @ [place]: IMPRESSION: 1. Heterogeneous enlarged liver. Correlate with labs. 2. No acute bowel or inflammatory findings. Normal appendix. 3. Simple 1 cm right renal cyst. RUQ US 12/16/23: IMPRESSION: 1. No acute or specific findings to account for patient's symptoms. 2. No suspicious abnormality of the liver. CT 12/19/23: IMPRESSION: NO ACUTE INTRA-ABDOMINAL PROCESS IDENTIFIED. HIDA 01/04 @ [place]: IMPRESSION: 1. Normal nuclear medicine HIDA scan. Labs 02/22/24 @ [place]: CRP <0.50 Amylase 57 Lipase 52.0 Antistreptolysin [...] pounds weight loss Has recurrent CTs at [facility] in December 2023, showed borderline enlarged liver, otherwise unremarkable. Liver enzymes within normal limits, pancreatic enzymes within normal limits Gastric emptying study within normal limits EGD was also done at [place] We tried amitriptyline 25 mg at bedtime, [...] lithotripsy of (more content not included)... Normal [facility] Comment on above: Result Comment: Elec tronically Signed By: Daphney MCKINLEY, Booker Jenkins\.br\Date and Time Signed: 03/09/24 08:39 EDT 36on 03-02-2024 36 Patient called stating that her labs were resulted yesterday at [facility]. I updated them in her chart in care everywhere. Patient & her partner would like you to review them & contact them to discuss results. Normal [facility] US MESENTERIC ARTERY CMPLT V LABon 03-02-2024 US MESENTERIC ARTERY CMPLT VAS LAB Non-Invasive Vascular Laboratory [facility] J35 Renal or Mesenteric Duplex Bilateral/Complete Date [...] Interpreting physician: CHATO Bright DO Final CC [facility] : [id number] [email or web address] See Link below for Image Normal [facility] Office Visiton 02-29-2024 Follow-up visit [id number] Nikki Martins 1980 F Date Provider Department Center 02/29/2024 Michael-JONATHAN [facility] INF [facility] No family history on file Level of Service:98791 ND OFFICE/OUTPATIENT NEW HIGH MDM 60 MINUTES Normal [facility] ALL AMYLASEon 02-22-2024 Amylase [Catalytic activity/Vol] 57 U/L 25 - 115 U/L [facility] ALL C REACTIVE PROTEINon CRP [Mass/Vol] mg/L NINF - 0.50 mg/dL [facility] ALL SED RATEon 02-22-2024 TBH SED RATE 3 NINF [facility] LIPASEon 02-22-2024 Lipase [Catalytic activity/Vol] 52 U/L 16.0 - 77.0 U/L [facility] No Panel Informationon 02-21 [facility] NM Gastric Emptying Studyon 02-09-2024 NM Gastric [...] 3.0 hr (Upper Limit 30%) 5.3 Normal [facility] Gastroenterology Office/Clin ic Noteon 01-19-2024 Gastroenterology Office/Clinic Note Gastroenterology Office/Clinic Note Chief Complaint Abdominal pain HPI Staff Patient is a(n) 43 year old female who presents today for a f/u from [facility] 12/[facility]23 for acute abdominal pain and hepatomegaly. Fhx fatty liver disease. Denies previous EGD/Colonoscopy. Denies Fhx colon cancer. Denies blood thinners/GLP-1 agonists. Patient states that last Tuesday she had colonoscopy and EGD at [facility]. Abdominal pain: When did you [...] @ [facility]: Normal colon CT 12/15/23 @ [facility]: IMPRESSION: 1. Heterogeneous enlarged liver. Correlate with labs. 2. No acute bowel or inflammatory findings. Normal appendix. 3. Simple 1 cm right renal cyst. RUQ US 12/16/23: IMPRESSION: 1. No acute or specific findings to account for patient's symptoms. 2. No suspicious abnormality of the liver. CT 12/19/23: IMPRESSION: NO ACUTE INTRA-ABDOMINAL PROCESS IDENTIFIED. HIDA 01/04 @ [place]: IMPRESSION: 1. Normal nuclear medicine HIDA scan. [...] 91.3 fL (12/19/23) Chloride: 103 mmol/L (12/19/23) [place] Absolute: 0.6 E9/L (12/19/23) CO2: 29 mmol/L (12/19/23) [place] Auto: 4.8 % (12/19/23) Creatinine: 0.9 mg/dL [...] tab(s), Oral, (more content not included)... Normal [facility] Comment on above: Result Comment: Elec tronically Signed By: Daphney MCKINLEY, Booker Jenkins\.br\Date and Time Signed: 01/19/24 13:00 EDT Deejay 01-10-2024 L Specimen: [id number] Received: 01/12/24 Status: KATHERINE Marks Num: [id number] Spec Type: Surgical Subm Dr: Samuel Lacey DO Tissues: A STOMACH FOR HP (PREPYLORIC BX R/O H PYLORI) Procedures: HE/2, Gross/Micro L4, H PYLORI, RECUT Age/ Patient Sex Location Account Attending Physician Nikki Martins 43/F [facility] [id number] Samuel Lacey DO SPEC NUM: [id number] RECD: 01/12/24 STATUS: KATHERINE MARKS NUM: [id number] ELENO: 01/10/[address]: Samuel Lacey DO ENTERED: 01/12/[address]: Ana,Lab SPEC TYPE: Surgical DEPT: ARUNA LAWLER ENTERED BY: [id number] RECV BY: [id number] ORDERED: HE/2, Gross/Micro L4, H PYLORI, RECUT ORDERED: HE/2, Gross/Micro L4, H PYLORI, RECUT Supplemental Report Addendum 1 Entered: 02/02/24 Supplemental for findings of H. pylori immunostain as performed per clinician's specimen requisition sheet: -H. pylori immunostain with appropriate control is also negative for identified Helicobacter organism or infection CPT: 45109 Addendum Signed (signature on file) Karen Bhardwaj MD 02/02/24926 Pathological Diagnosis Prepyloric gastric biopsy: -Antral mucosa with mild reactive gastropathy, including minor associated congestion without any other specific changes (no erosion, intestinal metaplasia, or any significant stromal chronic inflammation) Specimen: [id number] Received: 01/12/24 Status: KATHERINE Marks Num: [id number] Spec Type: Surgical Subm Dr: Samuel Lacey DO Tissues: A STOMACH FOR HP (PREPYLORIC BX R/O H PYLORI) Procedures: HE/2, Gross/Micro L4, H PYLORI, RECUT Patient: Nikki Martins [id number] (Continued) Specimen: [id number] Received: 01/12/24 (Continued) Pathological Diagnosis (Continued) Signed (signature on file) Karen Bhardwaj MD 02/02/24 0851 Specimen: [id number] Received: 01/12/24 Status: KATHERINE Marks Num: [id number] Spec Type: Surgical Subm Dr: Samuel Lacey DO Tissues: A STOMACH FOR HP (PREPYLORIC BX R/O H PYLORI) Procedures: HE/2, Gross/Micro L4, H PYLORI, RECUT Patient: Nikki Martins [id number] (Continued) Specimen: [id number] Received: 01/12/24 (Continued) Pathological Diagnosis (Continued) -Also [...] performed supporting the above interpretation CPT Codes 28356 Specimen: [id number] Received: 01/12/24 Status: KATHERINE Marks Num: [id number] Spec Type: Surgical Subm Dr: Samuel Lacey DO Tissues: A STOMACH FOR HP (PREPYLORIC BX R/O H PYLORI) Procedures: HE/2, Gross/Micro L4, H PYLORI, RECUT Patient: Nikki Martins [id number] (Continued) Signed (signature on file) Karen Bhardwaj MD 02/02/24 0851 Normal [facility] CT Abdomen/Pelvis w/ Contras ton [...] 300 Contrast amount in ml's: 100 Normal [facility] ED Note-Physicianon 12-20-19 ED Note-Physician ED Note-Physician Basic Information Time Seen: Woodrow JJ Emily Drummond. 12/19/2023 17:17 Chief Complaint was at [facility] for diaphram pain. had ct's done. still [...] The patient states she was seen at [facility] last Tuesday. She states they [...] in length (more content not included)... Normal [facility] Comment on above: Result Comment: Elec tronically Signed By: Emily Troy PA-C\.br\Date and Time Signed: 12/19/23 23:05 EDT\.br\Electronically Co-Signed By: Emily Troy PA-C\.br\Date and Time Co-Signed: 12/19/23 23:06 EDT\.br\Electronically Co-Signed By: Emily Troy PA-C\.br\Date and Time Co-Signed: 12/19/23 23:22 EDT\.br\Electronically Co-Signed By: Reza Bedoya DO\.br\Date and Time Co-Signed: 12/20/23 07:02 EDT BMPon 12-19-2023 Anion gap [Moles/Vol] 10 mmol/L Normal 6-16 [facility] Comment on above: Performed By: #### 2 [id number] #### [facility] [address] [place] [address] Calcium [Mass/Vol] 9.7 mg/dL Normal 8.9-11.1 [facility] Comment on above: Performed By: #### 2 [id number] #### [facility] [address] [place] [address] Chloride [Moles/Vol] 103 mmol/L Normal 101-111 [facility] Comment on above: Performed By: #### 2 [id number] #### [facility] [address] [place] [address] CO2 [Moles/Vol] 29 mmol/L Normal 21-31 [facility] Comment on above: Performed By: #### 2 [id number] #### [facility] [address] [place] [address] Creatinine [Mass/Vol] 0.9 mg/dL Normal 0.5-1.3 [facility] Comment on above: Performed By: #### 2 [id number] #### [facility] [address] [place] [address] Glucose [Mass/Vol] 92 mg/dL Normal 55-199 [facility] Comment on above: Performed By: #### 2 [id number] #### [facility] [address] [place] [address] Potassium [Moles/Vol] 4.3 mmol/L Normal 3.5-5.3 [facility] Comment on above: Performed By: #### 2 185677 #### [facility] [address] [place] [address] Sodium [Moles/Vol] 138 mmol/L Normal 135-145 [facility] Comment on above: Performed By: #### 2 [id number] #### [facility] [address] [place] [address] Urea nitrogen [Mass/Vol] 17 mg/dL Normal 5-21 [facility] Comment on above: Performed By: #### 2 [id number] #### [facility] [address] [place] [address] Urea nitrogen/Creatinine [Mass ratio] 19 No Units Normal 10-20 [facility] Comment on above: Performed By: #### 2 [id number] #### [facility] [address] [place] [address] CBC w/ Auto Diffon 4 Basophils/100 WBC (Bld) 0.5 % Normal 0.0-2.0 [facility] Comment on above: Performed By: #### 2 [id number] #### [facility] [address] [place] [address] Basophils/Leukocytes Auto (Bld) [Pure # fraction] 0.1 E9/L Normal 0.0-0.2 [facility] Comment on above: Performed By: #### 2 384153 #### [facility] [address] [place] [address] Eosinophils (Bld) [#/Vol] 0.1 E9/L Normal 0.0-0.5 [facility] Comment on above: Performed By: #### 2 180862 #### [facility] [address] [place] [address] Eosinophils/100 WBC (Bld) 0.6 % Normal 0.0-8.0 [facility] Comment on above: Performed By: #### 2 599348 #### [facility] [address] [place] [address] Erythrocyte distribution width (RBC) [Ratio] 13.1 % Normal 10.9-14.2 [facility] Comment on above: Performed By: #### 2 370203 #### [facility] [address] [place] [address] Hematocrit (Bld) [Volume fraction] 42.6 % Normal 34.0-46.0 [facility] Comment on above: Performed By: #### 2 108157 #### [facility] [address] [place] [address] Hemoglobin (Bld) [Mass/Vol] 14.7 g/dL Normal 12.0-16.0 [facility] Comment on above: Performed By: #### 2 765405 #### [facility] [address] [place] [address] Lymphocytes (Bld) [#/Vol] 2.2 E9/L Normal 1.0-4.0 [facility] Comment on above: Performed By: #### 2 213846 #### [facility] [address] [place] [address] Lymphocytes/100 WBC (Bld) 18.7 % Normal 14.0-50.0 [facility] Comment on above: Performed By: #### 2 222525 #### [facility] [address] [place] [address] MCH (RBC) [Entitic mass] 31.5 pg Normal 27.0-34.0 [facility] Comment on above: Performed By: #### 2 339776 #### [facility] [address] [place] [address] MCHC (RBC) [Mass/Vol] 34.5 g/dL Normal 31.4-36.0 [facility] Comment on above: Performed By: #### 2 063527 #### [facility] [address] [place] [address] MCV (RBC) [Entitic vol] 91.3 fL Normal 80.0-100.0 [facility] Comment on above: Performed By: #### 2 024465 #### [facility] [address] [place] [address] Monocytes (Bld) [#/Vol] 0.6 E9/L Normal 0.2-1.0 [facility] Comment on above: Performed By: #### 2 865399 #### [facility] [address] [place] [address] Neutrophils (Bld) [#/Vol] 8.7 E9/L High 2.0-7.5 [facility] Comment on above: Performed By: #### 2 610293 #### [facility] [address] [place] [address] Neutrophils/100 WBC (Bld) 75.4 % High 36.0-75.0 [facility] Comment on above: Performed By: #### 2 529302 #### [facility] [address] [place] [address] Platelet mean volume (Bld) [Entitic vol] 8.9 fL Normal 6.4-10.8 [facility] Comment on above: Performed By: #### 2 368609 #### [facility] [address] [place] [address] Platelets (Bld) [#/Vol] 173.0 E9/L Normal 150.0-500.0 [facility] Comment on above: Performed By: #### 2 893369 #### [facility] [address] [place] [address] RBC (Bld) [#/Vol] 4.7 E12/L Normal 4.3-5.9 [facility] Comment on above: Performed By: #### 2 333504 #### [facility] [address] [place] [address] WBC corrected for nucl RBC Auto (Bld) [#/Vol] 11.5 E9/L High 4.0-11.0 [facility] Comment on above: Performed By: #### 2 814196 #### [facility] [address] [place] [address] CHEMISTRYOrdered By: SYSTEM SYSTEM on 12-19-2023 Albumin [...] High Sensitivity Troponin I Instructions For Use, [employer], December 2017) Anion gap [Moles/Vol] 10 mmol/L [...] High Sensitivity Troponin I Instructions For Use, [employer], December 2017) Urea nitrogen [Mass/Vol] 17 mg/dL Normal 5 - 21 mg/dL [facility] Urea nitrogen/Creatinine [Mass ratio] 19 mg/mg Normal 10 - 20 [facility] COAGULATIONOrdered By: Courtney Sanches on 12-19-2023 aPTT Coag (PPP) [Time] 29.0 s Normal 25.1 - 36.5 second(s) [facility] Comment on above: Interpretive Data: Idris iveter 15 days - 4 weeks 1 - [...] the same coagulation reagent and instrumentation as [facility]. Currently there are no coagulation studies available worldwide for children to 14 days, and no normal ranges. Heparin therapeutic range (represented by Anti-Factor Xa activity of 0.2 - 0.4 U/mL) corresponds to PTT of 56.6 - 109.0 sec. INR Coag (PPP) [Relative time] 1.05 {INR} Invalid Interpretation Code [facility] Comment on above: Interpretive Data: I NR results are specifically intended to assess patients stabilized on long-term Anticoagulation therapy suggested INR s Less Intensive Anticoagulation 2.0 3.0 Conventional Range 3.0 4.5 PT Coag (PPP) [Time] 11.8 s Normal 9.4 - 1 2.5 second(s) [facility] Comment on above: Interpretive Data: [...] the same coagulation reagent and instrumentation as [facility]. Currently there are no coagulation studies available worldwide for children to 14 days, and no normal ranges. ED Clinical Summaryon 2023 ED Clinical Summary ED Clinical Summary [address] [address] ED Clinical Summary Person Information Name: NIKKI MARTINS/Stephanie Age: 43 Years : 1980 Sex: Female Language: Somali PCP: CYNDI EPPERSON CNP Marital Status: Single [...] 12/19/2023 23:16:39 12/19/2023 23:16:39 12/19/2023 23:16:39 ADDRESS: [address] [place] [id number] PHYS DOC NOTES: MEDICAL INFORMATION: Prescriptions Given: New Medications [id number], [address], [place] [phone], [phone] dicyclomine (Bentyl 10 mg Cap) 1 Capsules By Mouth every 6 hours as needed Spasm for 7 Days. Refills: 0. tramadol (traMADOL 50 mg Tab) 0.5-1 tab(s) By Mouth every 6 hours as needed as needed for pain. Refills: 0. PATIENT EDUCATION INFORMATION: Instructions: Hepatomegaly, Dals-kl-Gvtq; Abdominal Pain, Adult Follow up: With: Address: When: Booker Shelley [address] [facility], [address], [address] [phone] Business (1) In 3 days 12/22/2023 With: Address: When: CYNDI EPPERSON [address] [place], [place] [phone] Business (1) In 3 days DIAGNOSIS: 1:Acute abdominal pain; 2:Hepatomegaly Normal [facility] ED Patient Summaryon 024 ED Patient Summary ED Patient Summary [place] [id number] Patient Discharge Instructions Person Information Name: NIKKI MARTISN Age: 43 Years Arrival Date: 12/19/2023 15:58:56 Discharge Diagnosis: 1:Acute abdominal pain; 2:Hepatomegaly Primary Care Physician: CYNDI EPPERSON CNP Provider Information Primary Provider: Reza Bedoya DO Advanced Hatch Supervisor:None The exam and treatment you received in the Emergency Department were for an urgent problem and are not intended as complete care. It is important that you follow up with a doctor, nurse practitioner, or physician?s fish hatchery assistant for ongoing care. If your symptoms [...] Follow-up Instructions: With: Address: When: Booker Shelley [address] [place] [address], [address], [address] [phone] Business (1) In 3 days 12/22/2023 With: Address: When: CYNDI EPPERSON [address], [place] [phone] Business (1) In 3 days In the event that this physician does not participate in your insurance network, please consult with your insurance company to find a nearby participating provider. Patient Education Materials: Hepatomegaly, Vjxy-ff-Fvfn; Abdominal Pain, Adult A MESSAGE TO ALL PATIENTS REGARDING OPIOIDS PRESCRIPTION OPIOIDS: WHAT YOU NEED TO KNOW Prescription opioids can be used to help relieve ngiurfuu-ps-pkwmkd pain and are often prescribed following a [...] opioids abuse (more content not included)... Normal [facility] HEMATOLOGYOrdered By: SYSTEM SYSTEM on 12-19-2023 Basophils/100 [...] 12-19-2023 Albumin [Mass/Vol] 4.3 g/dL Normal 3.3-5.0 [facility] Comment on above: Performed By: #### 2 [id number] #### [facility] [address] [place] [address] Albumin/Globulin (S) [Mass conc ratio] 2.0 Normal 1.1-2.2 [facility] Comment on above: Performed By: #### 2 875911 #### [facility] [address] [place] [address] ALP [Catalytic activity/Vol] 28 Int._Unit/L Normal 21-98 [facility] Comment on above: Performed By: #### 2 727512 #### [facility] [address] [place] [address] ALT No additional P-5'-P [Catalytic activity/Vol] 14 Int._Unit/L Normal 6-46 [facility] Comment on above: Performed By: #### 2 251948 #### [facility] [address] [place] [address] AST [Catalytic activity/Vol] 14 Int._Unit/L Normal 5-43 [facility] Comment on above: Performed By: #### 2 [id number] #### [facility] [address] [place] [address] Bilirubin [Mass/Vol] 1.0 mg/dL Normal 0.0-1.1 [facility] Comment on above: Performed By: #### 2 033437 #### [facility] [address] [place] [address] Bilirubin.direct [Mass/Vol] 0.1 mg/dL Normal 0.0-0.4 [facility] Comment on above: Performed By: #### 2 858256 #### [facility] [address] [place] [address] Bilirubin.indirect [Mass or moles/Vol] 0.9 mg/dL Normal 0.1-0.9 [facility] Comment on above: Performed By: #### 2 884366 #### [facility] [address] [place] [address] Globulin (S) [Mass/Vol] 2.1 g/dL Normal 1.4-4.0 [facility] Comment on above: Performed By: #### 2 122430 #### [facility] [address] [place] [address] Protein [Mass/Vol] 6.4 g/dL Normal 6.0-7.8 [facility] Comment on above: Performed By: #### 2 295282 #### [facility] [address] [place] [address] Lipase Levelon 12-19-2023 Lipase [Catalytic activity/Vol] 18 U/L Normal 13-58 [facility] Comment on above: Performed By: #### 2 146597 #### [facility] [address] [place] [address] PT & PTTon 12-19-2023 aPTT Coag (PPP) [Time] 29.0 second(s) Normal 25.1-36.5 [facility] Comment on above: Result Comment: Para meter [...] the same coagulation reagent and instrumentation as [facility]. Currently there are no coagulation studies available worldwide for children to 14 days, and no normal ranges. Heparin therapeutic range (represented by Anti-Factor Xa activity of 0.2 - 0.4 U/mL) corresponds to PTT of 56.6 - 109.0 sec. Performed By: #### 1 [id number] #### [facility] [address] [place] [address] INR Coag (PPP) [Relative time] 1.05 {INR} Invalid Interpretation Code [facility] Comment on above: Result Comment: INR results are specifically intended to assess patients stabilized on long-term Anticoagulation therapy suggested INR?s ?Less Intensive Anticoagulation? 2.0 ? 3.0 Conventional Range 3.0 ? 4.5 Performed By: #### 1 [id number] #### [facility] [address] [place] [address] PT Coag (PPP) [Time] 11.8 second(s) Normal 9.4-12.5 [facility] Comment on above: Result Comment: 15 d [...] were obtained from a study by Jeancarlos Zacarais et al. prepared from 1437 samples obtained at 7 different centers using the same coagulation reagent and instrumentation as [facility]. Currently there are no coagulation studies available worldwide for children to 14 days, and no normal ranges. Performed By: #### 1 [id number] #### [facility] [address] [place] [address] Troponin 0 Hr.on 12-19-2023 Troponin HS 2.70 pg/mL Low 10.10-27.10 [facility] Comment on above: Result Comment: The 95% CI (Confidence Interval) PPV (Positive Predictive Value) for myocardial infarction in females is 38 pg/mL, in males 51 pg/mL. The results should be used in conjunction with clinical conditions of myocardial infarction. (Access High Sensitivity Troponin I Instructions For Use, [employer], December 2017) Performed By: #### 1 [id number] #### [facility] [address] [place] [address] Troponin 1 Hr.on 12-19-2023 Troponin HS 2.40 pg/mL Low 10.10-27.10 [facility] Comment on above: Order Comment: 1809 Result Comment: The 95% CI (Confidence Interval) PPV (Positive Predictive Value) for myocardial infarction in females is 38 pg/mL, in males 51 pg/mL. The results should be used in conjunction with clinical conditions of myocardial infarction. (Access High Sensitivity Troponin I Instructions For Use, [employer], December 2017) Performed By: #### 1 [id number] #### [facility] [address] [place] [address] eGFRon 12-19-2023 eGFR 80 mL/min/1.73 m2 Normal >=59 [facility] Comment on above: Order Comment: Order added by Discern Expert. Performed By: #### 1 [id number] #### [facility] [address] [place] [address] MG [facility] DI[facility]NOST[facility] 3D [place] CA Don 04-08-2022 MG [facility] DIAGNOST[facility] 3D [place] CAD Patient: NIKKI MARTINS Exam Date: 04/08/2022 : 1980 Gender:F Ordering : KP EPPERSON [employer] Admission #: [id number] Family : Order #: [id number] CLICK HERE TO VIEW EXAM RADIOLOGY REPORT [...] pancreatic cancer at age 55. LOCATION: [facility] BREAST COMPOSITION: Heterogeneously dense,which may [...] MD on 04/08/2022 at 15:21 Normal [facility] US BREAST [place] LIMITEDon 12-0 US BREAST [place] LIMITED Patient: NIKKI MARTINS Exam Date: 04/08/2022 : 1980 Gender:F Ordering : KP EPPERSON [employer] Admission #: [id number] Family : Order #: [id number] CLICK HERE TO VIEW EXAM RADIOLOGY REPORT [...] pancreatic cancer at age 55. LOCATION: [facility] BREAST COMPOSITION: Heterogeneously dense,which may [...] MD on 04/08/2022 at 15:21 Normal [facility] BUNon 03-23-2022 Urea nitrogen [Mass/Vol] 18.0 mg/dL Normal 7.0-18.0 [facility] Comment on above: Performed By: #### B UN, CREA #### [facility] [address] [place] [address] Dr. Jackie Bhardwaj CBC AUTO DIFFon 03-23-2022 BASO # 0.0 103/ul Normal 0.0-0.1 [facility] Comment on above: Performed By: #### P TT, PT #### [facility] [address] [place] [address] Dr. Jackie Bhardwaj Basophils/100 WBC (Bld) 0.2 % Normal 0.2-2.0 [facility] Comment on above: Performed By: #### P TT, PT #### [facility] [address] [place] [address] Dr. Jackie Bhardwaj EO # 0.1 103/ul Normal 0.0-0.7 [facility] Comment on above: Performed By: #### P TT, PT #### [facility] [address] [place] [address] Dr. Jackie Bhardwaj Eosinophils/100 WBC (Bld) 0.4 % Critically low 0.9-7.0 [facility] Comment on above: Performed By: #### P TT, PT #### [facility] [address] [place] [address] Dr. Jackie Bhardwaj Erythrocyte distribution width (RBC) [Ratio] 12.8 % Normal 11.0-15.0 [facility] Comment on above: Performed By: #### P TT, PT #### [facility] [address] [place] [address] Dr. Jackie Bhardwaj Hematocrit (Bld) [Volume fraction] 30.7 % Critically low 36.0-48.0 [facility] Comment on above: Performed By: #### P TT, PT #### [facility] [address] [place] [address] Dr. Jackie Bhardwaj Hemoglobin (Bld) [Mass/Vol] 10.3 g/dL Critically low 12.0-16.0 [facility] Comment on above: Performed By: #### P TT, PT #### [facility] [address] [place] [address] Dr. Jackie Bhardwaj IG # 0.04 10e3/ul Critically high 0.00-0.03 [facility] Comment on above: Performed By: #### P TT, PT #### [facility] [address] [place] [address] Dr. Jackie Bhardwaj IG % 0.3 % Normal 0.0-0.5 [facility] Comment on above: Performed By: #### P TT, PT #### [facility] [address] [place] [address] Dr. Jackie Bhardwaj LYMPH # 2.7 103/ul Normal 1.2-3.8 [facility] Comment on above: Performed By: #### P TT, PT #### [facility] [address] [place] [address] Dr. Jackie Bhardwaj Lymphocytes/100 WBC (Bld) 21.0 % Normal 20.5-60.0 [facility] Comment on above: Performed By: #### P TT, PT #### [facility] [address] [place] [address] Dr. Jackie Bhardwaj MANUAL DIFF REQ NO Normal [facility] Comment on above: Performed By: #### P TT, PT #### [facility] [address] [place] [address] Dr. Jackie Bhardwaj MCH (RBC) [Entitic mass] 30.7 pg Normal 26.7-34.0 [facility] Comment on above: Performed By: #### P TT, PT #### [facility] [address] [place] [address] Dr. Jackie Bhardwaj MCHC (RBC) [Mass/Vol] 33.6 g/dL Normal 29.9-35.2 [facility] Comment on above: Performed By: #### P TT, PT #### [facility] [address] [place] [address] Dr. Jackie Bhardwaj MCV (RBC) [Entitic vol] 91.6 fL Normal 81.0-99.0 [facility] Comment on above: Performed By: #### P TT, PT #### [facility] [address] [place] [address] Dr. Jackie Bhardwaj MONO # 0.8 103/ul Normal 0.3-0.8 [facility] Comment on above: Performed By: #### P TT, PT #### [facility] [address] [place] [address] Dr. Jackie Bhardwaj Monocytes/100 WBC (Bld) 6.2 % Normal 1.7-12.0 [facility] Comment on above: Performed By: #### P TT, PT #### [facility] [address] [place] [address] Dr. Jackie Bhardwaj NEUT # 9.2 103/ul Critically high 1.4-6.5 [facility] Comment on above: Performed By: #### P TT, PT #### [facility] [address] [place] [address] Dr. Jackie Bhardwaj Neutrophils/100 WBC (Bld) 71.9 % Normal 43.0-75.0 [facility] Comment on above: Performed By: #### P TT, PT #### [facility] [address] [place] [address] Dr. Jackie Bhardwaj Platelet mean volume (Bld) [Entitic vol] 11.2 fL Normal 9.5-13.5 [facility] Comment on above: Performed By: #### P TT, PT #### [facility] [address] [place] [address] Dr. Jackie Bhardwaj PLT 135 103/ul Critically low 150-450 [facility] Comment on above: Performed By: #### P TT, PT #### [facility] [address] [place] [address] Dr. Jackie Bhardwaj RBC 3.35 106/ul Critically low 4.20-5.40 [facility] Comment on above: Performed By: #### P TT, PT #### [facility] [address] [place] [address] Dr. Jackie Bhardwaj WBC 12.8 103/ul Critically high 4.0-11.0 [facility] Comment on above: Performed By: #### P TT, PT #### [facility] [address] [place] [address] Dr. Jackie Bhardwaj CREATININEon 03-23-2022 Creatinine [Mass/Vol] 0.72 mg/dL Normal 0.55-1.02 [facility] Comment on above: Performed By: #### B UN, CREA #### [facility] [address] [place] [address] Dr. Jackie Bhardwaj EGFR-AF BURUNDIAN >60 Normal >=60 [facility] Comment on above: Performed By: #### B UN, CREA #### [facility] [address] [place] [address] Dr. Jackie Bhardwaj EGFR-NON AF BURUNDIAN >60 Normal >=60 [facility] Comment on above: Performed By: #### B UN, CREA #### [facility] [address] [place] [address] Dr. Jackie Bhardwaj ANTIBODY ID PANELon 03-22-20 22 ANTIBODY ID PANEL Antibody ID Anti-D Blood Bank Notes testing performed at [facility] reference lab Normal [facility] Comment on above: Performed By: #### P TT, PT #### [facility] [address] [place] [address] Dr. Jackie Bhardwaj URon 03-22-2022 , QUAL Negative Normal NEGATIVE [facility] Comment on above: Performed By: #### P TT, PT #### [facility] [address] [place] [address] Dr. Jackie Bhardwaj [facility]09 SARS-CoV-2 (COVID-19) RNA JOHN+probe Ql (Unsp spec) Not detected Normal NOT DETECTED [facility] Comment on above: Result Comment: This test is not yet approved or cleared by the [place] FDA. When there are no FDA-approved or cleared tests available, and other criteria are met, FDA can make tests available under an emergency access mechanism called an Emergency Use Authorization (EUA). The EUA for this test is supported by the Carousel Operator of Health and Human Service's (HHS's) declaration [...] SARS-CoV-2. Performed By: #### C VDTBH #### [facility] [address] [place] [address] Dr. Jackie Bhardwaj TYPE AND SCREENon 03-18-2022 TYPE AND SCREEN Negative Normal [facility] Comment on above: Performed By: #### P TT, PT #### [facility] [address] [place] [address] Dr. Jackie Bhardwaj LIVER PROFILEon 03-10-2022 Albumin [Mass/Vol] 4.1 g/dL Normal 3.4-5.0 [facility] Comment on above: Performed By: #### L SHYLA BMP #### [facility] [address] [place] [address] Dr. Jackie Bhardwaj Albumin/Globulin [Mass ratio] 1.6 {ratio} Normal [facility] Comment on above: Performed By: #### L SHYLA BMP #### [facility] [address] [place] [address] Dr. Jackie Bhardwaj ALP [Catalytic activity/Vol] 41 U/L Critically low 46-116 [facility] Comment on above: Performed By: #### L SHYLA, BMP #### [facility] [address] [place] [address] Dr. Jackie Bhardwaj ALT [Catalytic activity/Vol] 16 U/L Normal 14-59 [facility] Comment on above: Performed By: #### L IVER, BMP #### [facility] [address] [place] [address] Dr. Jackie Bhardwaj AST [Catalytic activity/Vol] 14 U/L Critically low 15-37 [facility] Comment on above: Performed By: #### L IVER, BMP #### [facility] [address] [place] [address] Dr. Jackie Bhardwaj BILI, CONJUGATED 0.1 mg/dL Normal 0.0-0.2 [facility] Comment on above: Performed By: #### L IVSILVIA, BMP #### [facility] [address] [place] [address] Dr. Jackie Bhardwaj Bilirubin [Mass/Vol] 0.3 mg/dL Normal 0.2-1.0 [facility] Comment on above: Performed By: #### L IVSILVIA, BMP #### [facility] [address] [place] [address] Dr. Jackie Bhardwaj Globulin (S) [Mass/Vol] 2.5 g/dL Normal [facility] Comment on above: Performed By: #### L SHYLA, BMP #### [facility] [address] [place] [address] Dr. Jackie Bhardwaj Protein [Mass/Vol] 6.6 g/dL Normal 6.4-8.2 [facility] Comment on above: Performed By: #### L IVSILVIA, BMP #### [facility] [address] [place] [address] Dr. Jackie Bhardwaj PROF CHEM 8 (BAS METB)on Anion gap [Moles/Vol] 11.6 mmol/L Normal [facility] Comment on above: Performed By: #### L IVER, BMP #### [facility] [address] [place] [address] Dr. Jackie Bhardwaj Calcium [Mass/Vol] 8.8 mg/dL Normal 8.5-10.1 [facility] Comment on above: Performed By: #### L IVSILVIA, BMP #### [facility] [address] [address] [address] Jackie Bhardwaj Chloride [Moles/Vol] 102 mmol/L Normal 98-107 [facility] Comment on above: Performed By: #### L SHYLA, BMP #### [facility] [address] [address] [address] Jackie Bhardwaj CO2 [Moles/Vol] 28.9 mmol/L Normal 21.0-32.0 [facility] Comment on above: Performed By: #### L SHYLA, BMP #### [facility] [address] [address] [address] Jackie Bhardwaj Creatinine [Mass/Vol] 0.78 mg/dL Normal 0.55-1.02 [facility] Comment on above: Performed By: #### L SHYLA, BMP #### [facility] [address] [place] [address] Dr. Jackie Bhardwaj EGFR-AF BURUNDIAN >60 Normal >=60 [facility] Comment on above: Performed By: #### L SYHLA, BMP #### [facility] [address] [address] [address] Jackie Bhardwaj EGFR-NON AF BURUNDIAN >60 Normal >=60 [facility] Comment on above: Performed By: #### L SHYLA, BMP #### [facility] [address] [address] [address] Jackie Bhardwaj Glucose [Mass/Vol] 81 mg/dL Normal 74-106 [facility] Comment on above: Performed By: #### L SHYLA, BMP #### [facility] [address] [address] [address] Jackie Bhardwaj Potassium [Moles/Vol] 3.5 mmol/L Normal 3.5-5.1 [facility] Comment on above: Performed By: #### L SHYLA, BMP #### [facility] [address] [address] [address] Jackie Bhardwaj Sodium [Moles/Vol] 139 mmol/L Normal 136-145 [facility] Comment on above: Performed By: #### L SYHLA, BMP #### [facility] [address] [place] [address] Dr. Jackie Bhardwaj Urea nitrogen [Mass/Vol] 21.0 mg/dL Critically high 7.0-18.0 [facility] Comment on above: Performed By: #### L SHYLA, BMP #### [facility] [address] [place] [address] Dr. Jackie Bhardwaj Urea nitrogen/Creatinine [Mass ratio] 26.9 mg/mg Normal [facility] Comment on above: Performed By: #### L SHYLA BMP #### [facility] [address] [place] [address] Dr. Jackie Bhardwaj PROTIMEon 03-10-2022 INR Coag (PPP) [Relative time] 0.98 {INR} Normal [facility] Comment on above: Performed By: #### P TT, PT #### [facility] [address] [place] [address] Dr. Jackie Bhardwaj INR GUIDELINES SEE BELOW Normal [facility] Comment on above: Result Comment: BILLY RED INR: 2.0 - 3.0 CONDITIONS NOT LISTED BELOW 2.5 - 3.5 FOR PROSTHETIC HEART VALVE REPLACEMENT 2.5 - 3.5 RECURRENT THROMBOSIS Performed By: #### P TT, PT #### [facility] [address] [place] [address] Dr. Jackie Bhardwaj PT Coag (PPP) [Time] 10.6 s Normal 9.0-11.6 [facility] Comment on above: Performed By: #### P TT, PT #### [facility] [address] [place] [address] Dr. Jackie Bhardwaj PTTon 03-10-2022 aPTT Coag (Bld) [Time] 26.3 s Normal 22.3-36.2 [facility] Comment on above: Performed By: #### P TT, PT #### [facility] [address] [place] [address] Dr. Jackie Bhardwaj CBC AUTO DIFFon 03-09-2022 BASO # 0.1 103/ul Normal 0.0-0.1 [facility] Comment on above: Performed By: #### P TT, PT #### [facility] [address] [place] [address] Dr. Jackie Bhardwaj Basophils/100 WBC (Bld) 0.6 % Normal 0.2-2.0 [facility] Comment on above: Performed By: #### P TT, PT #### [facility] [address] [place] [address] Dr. Jackie Bhardwaj EO # 0.2 103/ul Normal 0.0-0.7 [facility] Comment on above: Performed By: #### P TT, PT #### [facility] [address] [place] [address] Dr. Jackie Bhardwaj Eosinophils/100 WBC (Bld) 1.8 % Normal 0.9-7.0 [facility] Comment on above: Performed By: #### P TT, PT #### [facility] [address] [place] [address] Dr. Jackie Bhardwaj Erythrocyte distribution width (RBC) [Ratio] 12.7 % Normal 11.0-15.0 [facility] Comment on above: Performed By: #### P TT, PT #### [facility] [address] [place] [address] Dr. Jackie Bhardwaj Hematocrit (Bld) [Volume fraction] 39.1 % Normal 36.0-48.0 [facility] Comment on above: Performed By: #### P TT, PT #### [facility] [address] [place] [address] Dr. Jackie Bhardwaj Hemoglobin (Bld) [Mass/Vol] 12.8 g/dL Normal 12.0-16.0 [facility] Comment on above: Performed By: #### P TT, PT #### [facility] [address] [place] [address] Dr. Jackie Bhardwaj IG # 0.03 10e3/ul Normal 0.00-0.03 [facility] Comment on above: Performed By: #### P TT, PT #### [facility] [address] [place] [address] Dr. Jackie Bhardwaj IG % 0.3 % Normal 0.0-0.5 [facility] Comment on above: Performed By: #### P TT, PT #### [facility] [address] [address] [address] Jackie Bhardwaj LYMPH # 3.5 103/ul Normal 1.2-3.8 [facility] Comment on above: Performed By: #### P TT, PT #### [facility] [address] [address] [address] Jackie Bhardwaj Lymphocytes/100 WBC (Bld) 32.7 % Normal 20.5-60.0 [facility] Comment on above: Performed By: #### P TT, PT #### [facility] [address] [address] [address] Jackie Bhardwaj MANUAL DIFF REQ NO Normal [facility] Comment on above: Performed By: #### P TT, PT #### [facility] [address] [place] [address] Dr. Jackie Bhardwaj MCH (RBC) [Entitic mass] 30.7 pg Normal 26.7-34.0 [facility] Comment on above: Performed By: #### P TT, PT #### [facility] [address] [address] [address] Jackie Bhardwaj MCHC (RBC) [Mass/Vol] 32.7 g/dL Normal 29.9-35.2 [facility] Comment on above: Performed By: #### P TT, PT #### [facility] [address] [address] [address] Jackie Bhardwaj MCV (RBC) [Entitic vol] 93.8 fL Normal 81.0-99.0 [facility] Comment on above: Performed By: #### P TT, PT #### [facility] [address] [address] [address] Jackie Bhardwaj MONO # 0.7 103/ul Normal 0.3-0.8 [facility] Comment on above: Performed By: #### P TT, PT #### [facility] [address] [address] [address] Jackie Bhardwaj Monocytes/100 WBC (Bld) 6.3 % Normal 1.7-12.0 [facility] Comment on above: Performed By: #### P TT, PT #### [facility] [address] [address] [address] Jackie Bhardwaj NEUT # 6.2 103/ul Normal 1.4-6.5 [facility] Comment on above: Performed By: #### P TT, PT #### [facility] [address] [address] [address] Jackie Bhardwaj Neutrophils/100 WBC (Bld) 58.3 % Normal 43.0-75.0 [facility] Comment on above: Performed By: #### P TT, PT #### [facility] [address] [address] [address] Jackie Bhardwaj Platelet mean volume (Bld) [Entitic vol] 11.5 fL Normal 9.5-13.5 [facility] Comment on above: Performed By: #### P TT, PT #### [facility] [address] [address] [address] Jackie Bhardwaj PLT 167 103/ul Normal 150-450 [facility] Comment on above: Performed By: #### P TT, PT #### [facility] [address] [address] [address] Jackie Bhardwaj RBC 4.17 106/ul Critically low 4.20-5.40 [facility] Comment on above: Performed By: #### P TT, PT #### [facility] [address] [address] [address] Jackie Bhardwaj WBC 10.6 103/ul Normal 4.0-11.0 [facility] Comment on above: Performed By: #### P TT, PT #### [facility] [address] [address] [address] Jackie Bhardwaj IRONon 03-09-2022 Iron [Mass/Vol] 73.0 ug/dL Normal 50.0-170.0 [facility] Comment on above: Performed By: #### P TT, PT #### [facility] [address] [address] [address] Jackie Bhardwaj PREG HCG QUALon 02-01-2022 , QUAL Negative Normal NEGATIVE [facility] Comment on above: Performed By: #### P REG #### [facility] [address] [address] [address] Jackie Bhardwaj , QUAL Negative Normal NEGATIVE [facility] Comment on above: Result Comment: Prev iously reported as: [id number] On 02/01/2022 06:45 By DM9 Performed By: #### P TT, PT #### [facility] [address] [address] [address] Jackie Bhardwaj Covid-19 PCR ([facility])on 01-08 SARS-CoV-2 (COVID-19) RNA JOHN+probe Ql (Unsp spec) Not detected Normal NOT DETECTED [facility] Comment on above: Result Comment: This test is not yet approved or cleared by the [place] FDA. When there are no FDA-approved or cleared tests available, and other criteria are met, FDA can make tests available under an emergency access mechanism called an Emergency Use Authorization (EUA). The EUA for this test is supported by the Carousel Operator of Health and Human Service's (HHS's) declaration [...] SARS-CoV-2. Performed By: #### C VDTBH #### [facility] [address] [address] [address] Jackie Bhardwaj Covid-19 PCR ([facility])on 12-09 SARS-CoV-2 (COVID-19) RNA JOHN+probe Ql (Unsp spec) Not detected Normal NOT DETECTED [facility] Comment on above: Result Comment: This test is not yet approved or cleared by the [place] FDA. When there are no FDA-approved or cleared tests available, and other criteria are met, FDA can make tests available under an emergency access mechanism called an Emergency Use Authorization (EUA). The EUA for this test is supported by the Carousel Operator of Health and Human Service's (HHS's) declaration [...] Performed By: #### P TT, PT #### [facility] [address] [place] [address] Dr. Jackie Bhardwaj CBC AUTO DIFFon 12-29-2021 BASO # 0.1 103/ul Normal 0.0-0.1 [facility] Comment on above: Performed By: #### C BC #### [facility] [address] [place] [address] Dr. Jackie Bhardwaj Basophils/100 WBC (Bld) 0.4 % Normal 0.2-2.0 [facility] Comment on above: Performed By: #### C BC #### [facility] [address] [place] [address] Dr. Jackie Bhardwaj EO # 0.2 103/ul Normal 0.0-0.7 [facility] Comment on above: Performed By: #### C BC #### [facility] [address] [place] [address] Dr. Jackie Bhardwaj Eosinophils/100 WBC (Bld) 1.6 % Normal 0.9-7.0 [facility] Comment on above: Performed By: #### C BC #### [facility] [address] [place] [address] Dr. Jackie Bhardwaj Erythrocyte distribution width (RBC) [Ratio] 12.9 % Normal 11.0-15.0 [facility] Comment on above: Performed By: #### C BC #### [facility] [address] [place] [address] Dr. Jackie Bhardwaj Hematocrit (Bld) [Volume fraction] 38.5 % Normal 36.0-48.0 [facility] Comment on above: Performed By: #### C BC #### [facility] [address] [place] [address] Dr. Jacike Bhardwaj Hemoglobin (Bld) [Mass/Vol] 12.8 g/dL Normal 12.0-16.0 [facility] Comment on above: Performed By: #### C BC #### [facility] [address] [place] [address] Dr. Jackie Bhardwaj IG # 0.03 10e3/ul Normal 0.00-0.03 [facility] Comment on above: Performed By: #### C BC #### [facility] [address] [place] [address] Dr. Jackie Bhardwaj IG % 0.3 % Normal 0.0-0.5 [facility] Comment on above: Performed By: #### C BC #### [facility] [address] [place] [address] Dr. Jackie Bhardwaj LYMPH # 3.9 103/ul Critically high 1.2-3.8 [facility] Comment on above: Performed By: #### C BC #### [facility] [address] [place] [address] Dr. Jackie Bhardwaj Lymphocytes/100 WBC (Bld) 33.9 % Normal 20.5-60.0 [facility] Comment on above: Performed By: #### C BC #### [facility] [address] [place] [address] Dr. Jackie Bhardwaj MANUAL DIFF REQ NO Normal [facility] Comment on above: Performed By: #### C BC #### [facility] [address] [place] [address] Dr. Jackie Bhardwaj MCH (RBC) [Entitic mass] 31.4 pg Normal 26.7-34.0 [facility] Comment on above: Performed By: #### C BC #### [facility] [address] [address] [address] Jackie Bhardwaj MCHC (RBC) [Mass/Vol] 33.2 g/dL Normal 29.9-35.2 [facility] Comment on above: Performed By: #### C BC #### [facility] [address] [address] [address] Jackie Bhardwaj MCV (RBC) [Entitic vol] 94.4 fL Normal 81.0-99.0 [facility] Comment on above: Performed By: #### C BC #### [facility] [address] [address] [address] Jackie Bhardwaj MONO # 0.7 103/ul Normal 0.3-0.8 [facility] Comment on above: Performed By: #### C BC #### [facility] [address] [place] [address] Dr. Jackie Bhardwaj Monocytes/100 WBC (Bld) 5.8 % Normal 1.7-12.0 [facility] Comment on above: Performed By: #### C BC #### [facility] [address] [address] [address] Jackie Bhardwaj NEUT # 6.6 103/ul Critically high 1.4-6.5 [facility] Comment on above: Performed By: #### C BC #### [facility] [address] [place] [address] Dr. Jackie Bhardwaj Neutrophils/100 WBC (Bld) 58.0 % Normal 43.0-75.0 [facility] Comment on above: Performed By: #### C BC #### [facility] [address] [address] [address] Jackie Bhardwaj Platelet mean volume (Bld) [Entitic vol] 11.4 fL Normal 9.5-13.5 [facility] Comment on above: Performed By: #### C BC #### [facility] [address] [address] [address] Jackie Bhardwaj PLT 168 103/ul Normal 150-450 [facility] Comment on above: Performed By: #### C BC #### [facility] [address] [place], [place] [address] Dr. Jcakie Bhardwaj RBC 4.08 106/ul Critically low 4.20-5.40 [facility] Comment on above: Performed By: #### C BC #### [facility] [address] [place], [place] [address] Dr. Jackie Bhardwaj WBC 11.4 103/ul Critically high 4.0-11.0 [facility] Comment on above: Performed By: #### C BC #### [facility] [address] [place], [place] [address] Dr. Jackie Bhardwaj IRONon 12-29-2021 Iron [Mass/Vol] 41.0 ug/dL Critically low 50.0-170.0 [facility] Comment on above: Performed By: #### P TT, PT #### [facility] [address] [place], [place] [address] Dr. Jackie Bhardwaj US VAC ASST BX BRST LT W CLI Jaya 10-02-2021 US VAC ASST BX BRST LT W CLIP Begin Addendum #1 COLLECTED DATE/TIME: 09/22/2021 09:43 EDT Final Diagnosis Report for THE [place] [place] ULTRASOUND GUIDED CORE BIOPSY, LEFT BREAST [...] after pathology results are available. Normal [facility] MAMMO POST BIOPSY LEFTon MAMMO POST BIOPSY LEFT Patient: NIKKI MARTINS Exam Date: 09/22/2021 : 1980 Gender:F Ordering : KP EPPERSON INDUSTRIAL TECHNICIAN Admission #: [id number] Family : Order #: [id number] CLICK HERE TO VIEW EXAM RADIOLOGY REPORT [...] M.D. on 09/22/2021 at 10:14 Normal [facility] Vital Signs Date Time Vital Sign Value Performing Clinician Facility 05-29-2024 10:28-0500 Body weight 57.15 kg Hossein Cohen MD Work Phone: [facility] 05-29-2024 10:28-0500 Diastolic blood pressure 95 mm[Hg] Hossein Cohen MD Work Phone: [facility] 05-29-2024 10:28-0500 Heart rate 78 /min Hossein Cohen MD Work Phone: [facility] 05-29-2024 10:28-0500 SaO2% (BldA) [Mass fraction] 100 % Hossein Cohen MD Work Phone: [facility] 05-29-2024 10:28-0500 Systolic blood pressure 150 mm[Hg] Hossein Cohen MD Work Phone: [facility] 04-30-2024 09:05-0500 Body height 171.5 cm Cyndi Epperson NP Work Phone: [facility] 04-30-2024 09:05-0500 Body mass index (BMI) [Ratio] 20.03 kg/m2 Cyndi Epperson CHEMICALS FERMENTATION OPERATOR Work Phone: [facility] 04-30-2024 09:05-0500 Body temperature 98.49 [degF] Cyndi Rubioz CHEMICALS FERMENTATION OPERATOR Work Phone: [facility] 04-30-2024 09:05-0500 Body weight 58.88 kg Cyndi Rubioz CHEMICALS FERMENTATION OPERATOR Work Phone: [facility] 04-30-2024 09:05-0500 Diastolic blood pressure 82 mm[Hg] Cyndi Tameraholz CHEMICALS FERMENTATION OPERATOR Work Phone: [facility] 04-30-2024 09:05-0500 Heart rate 85 /min Cyndi Rubioz CHEMICALS FERMENTATION OPERATOR Work Phone: [facility] 04-30-2024 09:05-0500 Respiratory rate 18 /min Cyndivenkat Ruiboz CHEMICALS FERMENTATION OPERATOR Work Phone: [facility] 04-30-2024 09:05-0500 SaO2% (BldA) [Mass fraction] 100 % Cyndi Tameraholz CHEMICALS FERMENTATION OPERATOR Work Phone: [facility] 04-30-2024 09:05-0500 Systolic blood pressure 132 mm[Hg] Cyndi Rubioz CHEMICALS FERMENTATION OPERATOR Work Phone: [facility] [facility] 03-28-2024 08:45-0500 Body height 171.5 cm Cyndi Rubioz CHEMICALS FERMENTATION OPERATOR Work Phone: [facility] 03-28-2024 08:45-0500 Body mass index (BMI) [Ratio] 19.04 kg/m2 Cyndi Tameraholz CHEMICALS FERMENTATION OPERATOR Work Phone: [facility] 03-28-2024 08:45-0500 Body temperature 98.49 [degF] Cyndi Philipholz CHEMICALS FERMENTATION OPERATOR Work Phone: [facility] 03-28-2024 08:45-0500 Body weight 55.97 kg Cyndivenkat Philipholz CHEMICALS FERMENTATION OPERATOR Work Phone: [place] [id number] 08:45-0500 Diastolic blood pressure 84 mm[Hg] Cyndi Zeenat CHEMICALS FERMENTATION OPERATOR Work Phone: [facility] 03-28-2024 08:45-0500 Heart rate 85 /min Cyndi Zeenat CHEMICALS FERMENTATION OPERATOR Work Phone: [facility] 03-28-2024 08:45-0500 Respiratory rate 19 /min Cyndi Zeenat CHEMICALS FERMENTATION OPERATOR Work Phone: [facility] 03-28-2024 08:45-0500 SaO2% (BldA) [Mass fraction] 99 % Cyndi Zeenat CHEMICALS FERMENTATION OPERATOR Work Phone: [facility] 03-28-2024 08:45-0500 Systolic blood pressure 132 mm[Hg] Cyndi Ramiroz CHEMICALS FERMENTATION OPERATOR Work Phone: [facility] 03-09-2024 08:11-0400 Blood Pressure Location Celeste Sarmini [facility] 03-09-2024 08:11-0400 Diastolic blood pressure 85 mm[Hg] Celeste Sarmini [facility] 03-09-2024 08:11-0400 Heart rate 82 /min Celeste Sarmini [facility] 03-09-2024 08:11-0400 Respiratory rate 16 /min Celeste Sarmini [facility] 03-09-2024 08:11-0400 Systolic blood pressure 132 mm[Hg] Celeste Sarmini [facility] 02-22-2024 15:04-0400 Body height 171.5 cm Cyndi Epperson CHEMICALS FERMENTATION OPERATOR Work Phone: [facility] 02-22-2024 15:04-0400 Body mass index (BMI) [Ratio] 19.91 kg/m2 Cyndi Ramiroz CHEMICALS FERMENTATION OPERATOR Work Phone: [facility] 02-22-2024 15:04-0400 Body temperature 99.39 [degF] Cyndi Epperson CHEMICALS FERMENTATION OPERATOR Work Phone: [facility] 02-22-2024 15:04-0400 Body weight 58.51 kg Cyndi Epperson CHEMICALS FERMENTATION OPERATOR Work Phone: [facility] 02-22-2024 15:04-0400 Diastolic blood pressure 86 mm[Hg] Cyndi Rubioz CHEMICALS FERMENTATION OPERATOR Work Phone: [facility] 02-22-2024 15:04-0400 Heart rate 73 /min Cyndi Rubioz CHEMICALS FERMENTATION OPERATOR Work Phone: [facility] 02-22-2024 15:04-0400 Respiratory rate 18 /min Cyndi Rubioz CHEMICALS FERMENTATION OPERATOR Work Phone: [facility] 02-22-2024 15:04-0400 SaO2% (BldA) [Mass fraction] 100 % Cyndi Rubioz CHEMICALS FERMENTATION OPERATOR Work Phone: [facility] 02-22-2024 15:04-0400 Systolic blood pressure 130 mm[Hg] Cyndi Rubioz CHEMICALS FERMENTATION OPERATOR Work Phone: [facility] 01-19-2024 12:42-0400 Diastolic blood pressure 86 mm[Hg] Celeste Sarmini [facility] 01-19-2024 12:42-0400 Mean blood pressure 103 mm[Hg] Celeste Sarmini [facility] 01-19-2024 12:42-0400 Systolic blood pressure 138 mm[Hg] Celeste Sarmini [facility] 01-19-2024 12:31-0400 Blood Pressure Location Celeste Sarmini [facility] 01-19-2024 12:31-0400 Diastolic blood pressure 93 mm[Hg] Celeste Sarmini [facility] 01-19-2024 12:31-0400 Heart rate 78 /min Celeset Sarmini [facility] 01-19-2024 12:31-0400 Systolic blood pressure 143 mm[Hg] Celeste Sarmini [facility] 01-11-2024 16:09-0400 Body height 171.5 cm Cyndi Ramiroz CHEMICALS FERMENTATION OPERATOR Work Phone: [facility] 01-11-2024 16:09-0400 Body mass index (BMI) [Ratio] 19.84 kg/m2 Cyndi Aichholz CHEMICALS FERMENTATION OPERATOR Work Phone: [facility] 01-11-2024 16:09-0400 Body temperature 98.01 [degF] Cyndi Daveyhaniyaz CHEMICALS FERMENTATION OPERATOR Work Phone: [facility] 01-11-2024 16:09-0400 Body weight 58.33 kg Cyndi Aichholz CHEMICALS FERMENTATION OPERATOR Work Phone: [facility] 01-11-2024 16:09-0400 Diastolic blood pressure 80 mm[Hg] Cyndi Aichholz CHEMICALS FERMENTATION OPERATOR Work Phone: [facility] 01-11-2024 16:09-0400 Heart rate 71 /min Cyndi Aichholz CHEMICALS FERMENTATION OPERATOR Work Phone: [facility] 01-11-2024 16:09-0400 Respiratory rate 20 /min Cyndi Aichholz CHEMICALS FERMENTATION OPERATOR Work Phone: [facility] 01-11-2024 16:09-0400 SaO2% (BldA) [Mass fraction] 100 % Cyndi Aichholz CHEMICALS FERMENTATION OPERATOR Work Phone: [facility] 01-11-2024 16:09-0400 Systolic blood pressure 140 mm[Hg] Cyndi Aichholz CHEMICALS FERMENTATION OPERATOR Work Phone: [facility] 12-19-2023 23:00-0400 Diastolic blood pressure 91 mm[Hg] Reza Aureliano [facility] 12-19-2023 23:00-0400 Heart rate 63 /min Reza Aureliano [facility] 12-19-2023 23:00-0400 Hourly Rounding Reza Aureliano [facility] 12-19-2023 23:00-0400 Mean blood pressure 107 mm[Hg] Reza Aureliano [facility] 12-19-2023 23:00-0400 Promise to Return Reza Aureliano [facility] 12-19-2023 23:00-0400 SaO2% (BldA) [Mass fraction] 100 % Reza Aureliano [facility] 12-19-2023 23:00-0400 Systolic blood pressure 140 mm[Hg] Reza Aureliano [facility] 12-19-2023 22:00-0400 Diastolic blood pressure 87 mm[Hg] Reza Aureliano [facility] 12-19-2023 22:00-0400 Heart rate 64 /min Reza Aureliano [facility] 12-19-2023 22:00-0400 Hourly Rounding Reza Aureliano [facility] 12-19-2023 22:00-0400 Mean blood pressure 100 mm[Hg] Reza Aureliano [facility] 12-19-2023 22:00-0400 Promise to Return Reza Aureliano [facility] 12-19-2023 22:00-0400 Systolic blood pressure 127 mm[Hg] Reza Aureliano [facility] 12-19-2023 21:00-0400 Diastolic blood pressure 86 mm[Hg] Reza Bedoya [facility] 12-19-2023 21:00-0400 Heart rate 58 /min Reza Bedoya [facility] 12-19-2023 21:00-0400 Hourly Rounding Reza Bedoya [facility] 12-19-2023 21:00-0400 Mean blood pressure 104 mm[Hg] Reza Bedoya [facility] 12-19-2023 21:00-0400 Promise to Return Reza Bedoya [facility] 12-19-2023 21:00-0400 SaO2% (BldA) [Mass fraction] 99 % Reza Bedoya [facility] 12-19-2023 16:05-0400 Body temperature 98.24 [degF] Reza Bedoya [facility] 12-19-2023 16:05-0400 Heart rate 84 /min Reza Bedoya [facility] 12-19-2023 16:05-0400 Respiratory rate 18 /min Reza Bedoya [facility] Encounters Encounter Date Encounter Type Care Provider Facility Start: 05-29-2024 End: 05-29-2024 Office outpatient new 60 minutes Hossein Cohen MD Work Phone: [facility] Comment on above: 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); Hiatal hernia Start: 05-29-2024 End: 05-29-2024 ambulatory HOSSEIN COHEN [facility] Start: 05-17-2024 End: 05-17-2024 Subsequent hospital visit by physician Rad External Film EF RAD EXTERNAL FILM [facility]IRTUAL Comment on above: Arrived Start: 05-17-2024 End: 05-17-2024 ambulatory [facility] Start: 05-14-2024 End: 05-14-2024 Refill Cyndi Aichholz CHEMICALS FERMENTATION OPERATOR Work Phone: [facility] Comment on above: Pain of upper abdome n Start: 05-11-2024 End: 05-11-2024 Refill Cyndi Aichholz CHEMICALS FERMENTATION OPERATOR Work Phone: [facility] Comment on above: Pain of upper abdome n Start: 04-30-2024 End: 04-30-2024 Bamboo flowsheet Cyndi Aichholz CHEMICALS FERMENTATION OPERATOR Work Phone: [facility] Start: 04-30-2024 End: 04-30-2024 Bamboo flowsheet Cyndi Aichholz CHEMICALS FERMENTATION OPERATOR Work Phone: [facility] Start: 04-30-2024 End: 04-30-2024 Office outpatient visit 25 minutes Cyndi Aichholz CHEMICALS FERMENTATION OPERATOR Work Phone: [facility] Comment on above: Pain of upper abdome n (Primary Dx); Elevated antinuclear antibody (SERA) level Start: 04-30-2024 End: 04-30-2024 ambulatory CYNDI AICHHOLZ Not Available Start: 04-19-2024 ambulatory Booker Shelley Facility:[facility] Start: 04-16-2024 End: 04-16-2024 Refill Cyndi Aichholz CHEMICALS FERMENTATION OPERATOR Work Phone: [facility] Comment on above: Pain of upper abdome n Start: 03-28-2024 End: 03-28-2024 Bamboo flowsheet Cyndi Aichholz CHEMICALS FERMENTATION OPERATOR Work Phone: [facility] Start: 03-28-2024 End: 03-28-2024 Bamboo flowsheet Cyndi Aichholz CHEMICALS FERMENTATION OPERATOR Work Phone: [facility] Start: 03-28-2024 End: 03-28-2024 ambulatory CYNDI AICHHOLZ Not Available Start: 03-28-2024 End: 03-28-2024 Office outpatient visit 15 minutes Cyndi Epperson CHEMICALS FERMENTATION OPERATOR Work Phone: [facility] Comment on above: Pain of upper abdome n (Primary Dx); Elevated antinuclear antibody (SERA) level Start: 03-27-2024 End: 03-27-2024 Patient encounter procedure Samuel Lacey DO Work Phone: [facility] [address] Work Phone: Start: 03-27-2024 End: 03-27-2024 ambulatory Weston Isabel [facility] Work Phone: Start: 03-22-2024 ambulatory Weston Isabel Facility :[facility] Start: 03-17-2024 End: 03-18-2024 Refill Cyndi Epperson CHEMICALS FERMENTATION OPERATOR Work Phone: [facility] Comment on above: Pain of upper abdome n Start: 03-16-2024 End: 03-16-2024 Clinisync Result Encounter Generic External Data Provider [facility] External Department Unsolicited Start: 03-16-2024 End: 03-16-2024 Clinisync Result Encounter Generic External Data Provider [facility] External Department Unsolicited Start: 03-16-2024 End: 03-16-2024 ambulatory Celeste Talal Sarmini Facility[facility] Start: 03-16-2024 End: 03-16-2024 Patient encounter procedure Celeste Talal Sarmini [facility] Start: 03-09-2024 End: 03-09-2024 ambulatory Celeste Talal Sarmini Facility:[facility] Start: 03-09-2024 End: 03-09-2024 Patient encounter procedure Ceelste Talal Sarmini [facility] Start: 03-08-2024 End: 03-08-2024 Refill Cyndi Zeenat CHEMICALS FERMENTATION OPERATOR Work Phone: [facility] Start: 03-02-2024 End: 03-02-2024 ambulatory SELF Facility:[facility] Start: 03-01-2024 End: 03-01-2024 Orders Only Cyndi Zeenat CHEMICALS FERMENTATION OPERATOR Work Phone: [facility] Comment on above: Elevated antinuclear antibody (SERA) level (Primary Dx) Start: 02-29-2024 End: 02-29-2024 ambulatory [facility] Start: 02-22-2024 End: 02-22-2024 Office outpatient visit 25 minutes Cyndi Epperson CHEMICALS FERMENTATION OPERATOR Work Phone: [facility] Comment on above: Pain of upper abdome n (Primary Dx); Enlarged liver; Panic attack (CMS/HCC); Chest tightness Start: 02-22-2024 End: 02-22-2024 ambulatory CYNDI ZEENAT Not Available Start: 02-22-2024 End: 02-22-2024 Clinisync Result Encounter Cyndi Zeenat CHEMICALS FERMENTATION OPERATOR Work Phone: [facility] External [facility] Unsolicited Start: 02-22-2024 End: 02-22-2024 Clinisync Result Encounter Cyndi Daveyperfectolori CHEMICALS FERMENTATION OPERATOR Work Phone: [facility] External Department Unsolicited Start: 02-09-2024 Non-patient / Non-visit Samuel rogers DO Work Phone: [facility] Work Phone: Start: 02-07-2024 End: 02-07-2024 ambulatory Booker Riveramini Facility:[facility] Start: 02-07-2024 End: 02-07-2024 Patient encounter procedure Celeste Talal Sarmini [facility] Start: 02-06-2024 End: 02-06-2024 Refill Cyndi Epperson CHEMICALS FERMENTATION OPERATOR Work Phone: [facility] Comment on above: Pain of upper abdome n Start: 01-19-2024 End: 01-19-2024 ambulatory Booker Shelley Facility:[facility] Start: 01-19-2024 End: 01-19-2024 Patient encounter procedure Booker Shelley [facility] Start: 01-11-2024 End: 01-11-2024 Office outpatient visit 15 minutes Cyndi Epperson CHEMICALS FERMENTATION OPERATOR Work Phone: [facility] Comment on above: Encounter for screen ing mammogram for malignant neoplasm of breast (Primary Dx); Pain of upper abdomen Start: 01-11-2024 End: 01-11-2024 ambulatory CYNDI EPPERSON Not Available Start: 01-10-2024 End: 01-10-2024 ambulatory Samuel Lacey [facility] Work Phone: Start: 01-10-2024 End: 01-10-2024 Departed Referred DO Samuel Lacey Work Phone: [facility] Start: 01-04-2024 End: 01-04-2024 Refill Cyndi Epperson CHEMICALS FERMENTATION OPERATOR Work Phone: [facility] Comment on above: Pain of upper abdome n (Primary Dx) Start: 12-26-2023 End: 12-26-2023 ambulatory SAMUEL LACEY Not Available Start: 12-22-2023 End: 12-22-2023 ambulatory CYNDIVenkat EPPERSON Not Available Start: 12-20-2023 ambulatory Reza Bedoya [facility] Start: 12-19-2023 End: 12-19-2023 Emergency department patient visit Reza Bedoya [facility] Start: 12-19-2023 ambulatory Reza Bedoya Facility:[facility] Start: 09-17-2022 End: 09-17-[address] WILDER OWENS . Facility:[facility] Start: 04-08-2022 End: 04-09-[address] MIKE JEAN Facility:[facility] Start: 03-22-2022 Encounter for preprocedural laboratory examination DR WILDER OWENS . [facility] Start: 03-22-2022 End: 03-23-2022 Evaluation and management of inpatient DR WILDER OWENS . Facility:[facility] Start: 03-18-2022 End: 03-19-[address] WILDER OWENS . Facility:[facility] Start: 03-18-2022 End: 03-19-2022 Encounter for preprocedural laboratory examination DR WLIDER OWENS . Facility:[facility] Start: 03-10-2022 End: 03-11-[address] WILDER OWENS . Facility:[facility] Start: 03-09-2022 End: 03-10-2022 ambulatory INDUSTRIAL TECHNICIAN CYNDI EPPERSON Facility:[facility] Start: 02-01-2022 End: 02-01-[address] WILDER OWENS . Facility:[facility] Start: 01-28-2022 ambulatory INDUSTRIAL TECHNICIAN CYNDI RAMIROZ Facil ity:[facility] Start: 01-27-2022 End: 01-28-[address] WILDER OWENS . Facility:[facility] Start: 01-05-2022 End: 01-05-2022 ambulatory INDUSTRIAL TECHNICIAN CYNDI ZEENAT Facility:[facility] Start: 12-29-2021 End: 12-30-2021 ambulatory INDUSTRIAL TECHNICIAN CYNDI RAMIROZ Facility:[facility] Start: 11-02-2021 ambulatory INDUSTRIAL TECHNICIAN CYNDI RAMIROZ Facil ity:[facility] Start: 10-29-2021 ambulatory INDUSTRIAL TECHNICIAN CYNDI TAMERAHOLZ Facil ity:[facility] Start: 09-22-2021 End: 09-22-2021 ambulatory INDUSTRIAL TECHNICIAN CYNDI AICPerfectoHOLZ Facility:[facility] Procedures Date Procedure Procedure Detail Performing Clinician Start: 05-17-2024 End: 05-17-2024 Study Interpretation of outside study Hossein Cohen MD Work Phone: Start: 05-17-2024 End: 05-17-2024 Study Interpretation of outside study Hossein Cohen MD Work Phone: Start: 03-16-2024 TSH W/REFLEX T4 Generic External Data Provider Start: 02-22-2024 ALL AMYLASE Cyndi Tameraaniyaz CHEMICALS FERMENTATION OPERATOR Work Phone: Start: 02-22-2024 ALL C REACTIVE PROTEIN Cyndi Ramiroz CHEMICALS FERMENTATION OPERATOR Work Phone: Start: 02-22-2024 ALL SED RATE Cyndi aDveyperfectoaniyaz CHEMICALS FERMENTATION OPERATOR Work Phone: Start: 02-22-2024 CCF LIPASE Cyndi Tameraholz CHEMICALS FERMENTATION OPERATOR Work Phone: Start: 01-30-2024 Mammography Cyndi Philipaniyaz CHEMICALS FERMENTATION OPERATOR Work Phone: Start: 01-10-2024 Colonoscopy Cyndi Ramiroz CHEMICALS FERMENTATION OPERATOR Work Phone: Start: 01-10-2024 Colonoscopy Celeste Sarmini Start: 01-10-2024 Esophagogastroduodenoscopic electrohydraulic lithotripsy of bezoar in stomach Celeste Sarmini Comment on above: Ana Start: 03-22-2022 Resection of Bilateral Fallopian Tubes, Via Natural or Artificial Opening INDUSTRIAL TECHNICIAN CYNDI ZEENAT Start: 03-22-2022 Resection of Uterus, Via Natural or Artificial Opening INDUSTRIAL TECHNICIAN CYNDI EPPERSON History of tonsillectomy Mu markd Sarmini Resection of Bilater al Fallopian Tubes, Via Natural or Artificial Opening Celeste Sarmini Resection of Uterus, Via Natural or Artificial Opening Celeste Sarmini Plan of Treatment Date Care Activity Detail Author Start: 01-09-2034 Screening for malignant neoplasm of colon [facility] Start: 2028 Zoster Vaccines (1 of 2) Zoster Vaccines (1 of 2) [facility] Start: 01-29-2025 Screening for malignant neoplasm of breast Mammogram [facility] Start: 07-02-2024 End: 07-02-2024 Patient encounter procedure 07/02/2024 9:00 AM EST Office Visit [facility] [address] [place] [address] Cyndi Epperson, SURINDER [address] [place] [phone] [facility] Start: 05-29-2024 End: 05-29-2024 Patient encounter procedure 05/29/2024 10:30 AM EST Office Visit [facility] [address] [place] [phone] [place] [address] [place], [place] [id number] [facility] Start: 04-30-2024 End: 04-30-2024 Patient encounter procedure [facility] Comment on above: Pain of upper abdomen (Primary Dx); Elevated antinuclear antibody (SERA) level Start: 03-28-2024 End: 03-28-2024 Patient encounter procedure 03/28/2024 8:40 AM EST Office Visit [facility] [address] [place] [address] Cyndi Epperson, SURINDER [address] [place] [phone] [facility] Start: 03-27-2024 Hemolytic complement CH50 level [facility] Start: 03-27-2024 [facility] Start: 02-22-2024 End: 02-22-2024 Patient encounter procedure 02/22/2024 3:00 PM EDT Office Visit [facility] [address] [place] [address] Cyndi Epperson, SURINDER [address] [place] [phone] [facility] Start: 02-22-2024 End: 02-21-2025 Amylase [Enzymatic activity/volume] in Serum or Plasma Amylase Lab Routine Pain of upper abdomen Expected: 02/22/2024 (Approximate), Expires: 02/21/2025 [facility] Comment on above: Expected: 02/22/2024 (Approximate), Expi res: 02/21/2025 Start: 02-22-2024 End: 02-21-2025 Antistreptolysin O titer Antistreptolysin O titer Lab Routine Pain of upper abdomen Enlarged liver Expected: 02/22/2024 (Approximate), Expires: 02/21/2025 [facility] Comment on above: Expected: 02/22/2024 (Approximate), Expi res: 02/21/2025 Start: 02-22-2024 End: 02-21-2025 C reactive protein [Mass/volume] in Serum or Plasma C-reactive protein Lab Routine Pain of upper abdomen Enlarged liver Expected: 02/22/2024 (Approximate), Expires: 02/21/2025 [facility] Comment on above: Expected: 02/22/2024 (Approximate), Expi res: 02/21/2025 Start: 02-22-2024 End: 02-21-2025 Erythrocyte sedimentation rate Sedimentation rate, automated Lab Routine Pain of upper abdomen Enlarged liver Expected: 02/22/2024 (Approximate), Expires: 02/21/2025 [facility] Work Phone: Comment on above: Expected: 02/22/2024 (Approximate), Expi res: 02/21/2025 Start: 02-22-2024 End: 02-21-2025 Lipase [Enzymatic activity/volume] in Serum or Plasma Lipase Lab Routine Pain of upper abdomen Expected: 02/22/2024 (Approximate), Expires: 02/21/2025 [facility] Comment on above: Expected: 02/22/2024 (Approximate), Expi res: 02/21/2025 Start: 02-22-2024 End: 02-21-2025 Nuclear Ab [Titer] in Serum by Immunofluorescence SERA Lab Routine Pain of upper abdomen Enlarged liver Expected: 02/22/2024 (Approximate), Expires: 02/21/2025 [facility] Comment on above: Expected: 02/22/2024 (Approximate), Expi res: 02/21/2025 Start: 01-11-2024 End: 03-12-2025 MG Breast - bilateral Screening Bilateral screening mammogram Imaging Routine Encounter for screening mammogram for malignant neoplasm of breast Expected: 01/11/2024 (Approximate), Expires: 03/12/2025 [facility] Work Phone: Comment on above: Expected: 01/11/2024 (Approximate), Expi res: 03/12/2025 Start: 01-10-2024 End: 01-10-2024 Patient encounter procedure 01/10/2024 1:20 PM EDT Office Visit [facility] [address] [place] [phone] Cyndi Epperson NP [address] [place] [phone] [facility] Start: 01-10-2024 End: 01-10-2024 Patient encounter procedure 01/10/2024 8:45 AM EDT Procedure Visit [facility] Samuel Lacey, [address] [place] [address] [facility] Start: 01-08-2024 COVID-19 Vaccine ( season) COVID-19 Vaccine ( season) [facility] Start: 01-08-2024 Influenza vaccination Influenza Vaccine (#1) [facility] Start: 09-14-2022 DTaP/Tdap/Td Vaccines (2 - Td or Tdap) DTaP/Tdap/Td Vaccines (2 - Td or Tdap) [facility] Start: 2018 Screening for malignant neoplasm of breast Mammogram [facility] Start: 2008 Screening for malignant neoplasm of cervix HPV/Cotest [facility] Start: 11-23-1999 Screening for malignant neoplasm of cervix [facility] Start: 1997 Hepatitis A Vaccines (1 of 2 - Risk 2-dose series) Hepatitis A Vaccines (1 of 2 - Risk 2-dose series) [facility] Start: 1997 Hepatitis B Vaccines (1 of 3 - 19+ 3-dose series) Hepatitis B Vaccines (1 of 3 - 19+ 3-dose series) [facility] Start: 1996 Hepatitis C screening Hepatitis C Screening [facility] Start: 11-23-1979 MMR Vaccines (1 of 1 - Standard series) MMR Vaccines (1 of 1 - Standard series) [facility] Start: 1978 HIV screening HIV Screening [facility] Start: 1978 Lipid panel Lipid Panel [facility] Start: 1978 Screening for malignant neoplasm of colon [facility] Start: 1978 Yearly Adult Physical Yearly Adult Physical [facility] Complement C3 [Mass/ volume] in Serum or Plasma [facility] Complement C4 [Mass/ volume] in Serum or Plasma [facility] Mitochondria M2 IgG Ab [Units/volume] in Serum [facility] RNA polymerase III I gG Ab [Units/volume] in Serum or Plasma by Immunoassay [facility] Immunizations Immunization Date Immunization Notes Care Provider Fa cility 03-25-2021 Pfizer Purple Cap SARS-CoV-2 Vaccination Cyndi Epperson CHEMICALS FERMENTATION OPERATOR Work Phone: [facility] 03-04-2021 Pfizer Purple Cap SARS-CoV-2 Vaccination Cyndi Zeenat CHEMICALS FERMENTATION OPERATOR Work Phone: [facility] 06-01-2013 influenza virus vaccine, unspecified formulation Booker Shelley [facility] 06-01-2013 influenza, seasonal, injectable Cyndi Epperson CHEMICALS FERMENTATION OPERATOR Work Phone: [facility] 09-14-2012 tetanus toxoid, redu hollie diphtheria toxoid, and acellular pertussis vaccine, adsorbed Cyndi Zeenat CHEMICALS FERMENTATION OPERATOR Work Phone: [facility] Payers Date Payer Category Payer Self-pay [id number] 2023 Private Health Insurance [employer] [id number] 2023 Unknown [employer] [id number] 2023-Present [phone] [address] [address] [place] [address] [id number] 2023 Managed Care (Private) [facility] [id number] 1978 Unknown [id number] 1978 Unknown [id number] 1978 Unknown [id number] 1978 Unknown [id number] 1978 Unknown [id number] 1978 Unknown [id number] 1980 Unknown [id number] 2.16.840.1.422080.3.579. 259 1978 Unknown [id number] 2.16.840.1.806069.3.579. 2.59 1978 Unknown [id number] 2.16.840.1.004315.3.579. 259 1978 Unknown [id number] 2.16.840.1.742030.3.579. 259 1978 Unknown [id number] 2.16.840.1.136936.3.579. 259 1978 Unknown [id number] 2.16.840.1.359215.3.579. 259 1978 Unknown [id number] 2.16.840.1.041091.3.579. 259 1978 Unknown [id number] 2.16.840.1.210776.3.579. 259 1978 Unknown [id number] 2.16.840.1.505965.3.579. 259 1978 Unknown [id number] 2.16.840.1.880007.3.579. 272 1978 Unknown [id number] 2.16.840.1.180133.3.579. 272 1978 Unknown [id number] 2.16.840.1.492273.3.579. 272 1978 Unknown [id number] 2.16.840.1.393669.3.579. 272 1978 Unknown [id number] 2.16.840.1.481538.3.579. 272 1978 Unknown [id number] 2.16.840.1.239896.3.579. 2.72 1978 Unknown [id number] 2.16.840.1.795377.3.579. 2. 1978 Unknown [id number] 2.16.840.1.690083.3.579. 2. 1978 Unknown [id number] 2.16840.1.781020.3.579. 2. 1978 Unknown [id number] 2.16.840.1.527889.3.579. 2. 1978 Unknown [id number] 2.840.1.587660.3.579. 2. 1978 Unknown [id number] 2.840.1.049149.3.579. 2.1258 1978 Unknown [id number] 2.0.1.406827.3.579. 2.1258 1978 Unknown [id number] 2.840.1.986964.3.579. 2.1258 1978 Unknown [id number] 2.840.1.675681.3.579. 2.1258 1978 Unknown [id number] 2.840.1.088833.3.579. 2.1258 1978 Unknown [id number] 2.840.1.331370.3.579. 2.1258 1978 Unknown [id number] 2.840.1.604817.3.579. 2.1244 1978 Unknown [id number] 2.840.1.348284.3.579. 2.1244 1978 Unknown [id number] 2.840.1.995847.3.579. 2.1244 1978 Unknown [id number] 2.840.1.629427.3.579. 2.1244 1978 Unknown [id number] 2.16840.1.028214.3.579. 2.1245 1978 Unknown [id number] 2.16.840.1.742414.3.579. 2.1244 1959 Unknown [id number] 1959 Unknown [id number] Unknown Lakshmi BC/BS [id number] Unknown [id number] 2.16.840.1.189071.3.579. 2.531 Unknown [id number] 2.16.840.1.159010.3.579. 2.531 Unknown [id number] 2.16.840.1.095195.3.579. 2.531 Social History Date Type Detail Facility Tobacco smoking status [facility] Start: 02-22-2024 End: 05-29-2024 Sex Assigned At Female [facility] Start: 1980 Sex Assigned At Female F [facility] Start: 01-19-2024 End: 05-29-2024 Tobacco smoking status Never smoked tobacco (finding) [facility] Tobacco smoking status Never [facility] Start: 12-22-2023 Tobacco smoking status FLIS Ex-smoker [facility] End: 05-09-2020 History of tobacco use Current smoker [facility] End: 05-09-2020 History of tobacco use Cigarette Smoker [facility] Start: 12-22-2023 End: 05-29-2024 Tobacco use and exposure Smokeless tobacco non-user [facility] Start: 02-22-2024 End: 04-30-2024 Alcoholic beverage intake Ex-drinker (finding) [facility] Start: 02-22-2024 End: 05-29-2024 History of Social function [facility] Start: 12-22-2023 Alcohol Comment caffine: 1 cup of coffee daily [facility] Start: 12-22-2023 Gender identity Identifies as female gender (finding) [facility] Start: 12-22-2023 Sexual orientation Heterosexual (fin ding) [facility] Tobacco smoking status [facility] Unknown if ever smoked [facility] Work Phone: Start: 03-28-2024 Sex Patient sex un known (finding) [facility] Start: 1980 Sex assigned at Not on file [facility] Work Phone: Start: 05-29-2024 Alcoholic beverage intake Lifetime non-drinker (finding) [facility] Work Phone: How often to you hav e a drink containing alcohol? Never [facility] Work Phone: NEGATED: Highlighted rowStart: NINF History of tobacco use Passive smoker [facility] Work Phone: Functional Status Date Assessment Result Facility 03-09-2024 Functional Status N/A [facility] 01-19-2024 Functional Status N/A [facility] 12-19-2023 Functional Status N/A [facility] Clinical Notes 12-19-2023 to 05-29-2024 Hossein Cohen MD - 05/29/2024 10:30 AM CHELA ARMSTRONG - 04/30/2024 9:00 AM Fredrick Epperson NP - 04/30/2024 9:00 AM Fredrick Epperson NP - 04/30/2024 6:18 AM ESTPatient InstructionsLaboratory Note Date & Type Note Facility 05-29-2024 History of Present illness Narrative Vascular Surgery Consultation, History, Physical Nikki Martins is a 43 y.o. year old female patient. History: The patient is a 43-year-old woman with development of epigastric abdominal pain that is postprandial. This has been present since November 2023. Eating makes this much worse. She has had an extensive workup including EGD, colonoscopy, HIDA scan and gastric emptying study which have been normal except for the finding of a small hiatal hernia. She has lost about 10 to 20 pounds since this started. A duplex which was transferred and available from the outside shows a peak velocity in the celiac axis of 280 cm/s in expiration and this normalizes with inspiration. Next We went over the pathoanatomy of median arcuate ligament syndrome and the role of celiac axis and celiac plexus compression and the etiology. I am going to refer her for celiac plexus block through a consultation with pain medicine. 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 I will see her after these consultations. No past medical history on file. No past surgical history on file. Active Ambulatory Problems Diagnosis Date Noted No Active Ambulatory Problems Resolved Ambulatory Problems Diagnosis Date Noted No Resolved Ambulatory Problems No Additional Past Medical History Review of Systems Constitutional: Negative. HENT: Negative. Eyes: Negative. Respiratory: Negative. Cardiovascular: Negative. Gastrointestinal: Negative. Endocrine: Negative. Genitourinary: Negative. Musculoskeletal: Negative. Skin: Negative. Allergic/Immunologic: Negative. Neurological: Negative. Hematological: Negative. Psychiatric/Behavioral: Negative. Allergies Allergen Reactions Penicillins Anaphylaxis, Hives, Rash and Unknown Opioids - Morphine Analogues Nausea/vomiting Oxycodone-Acetaminophen GI intolerance Nausea, vomiting, and dizziness Vitals: Visit Vitals BP (!) 150/95 Pulse 78 Physical Exam: Vascular Physical Exam Constitutional: General: She is awake. Eyes: Extraocular Movements: Extraocular movements intact. Pupils: Pupils are equal, round, and reactive to light. Cardiovascular: Rate and Rhythm: Normal rate. Pulses: Femoral pulses are 2+ on the right side and 2+ on the left side. Pulmonary: Effort: Pulmonary effort is normal. Abdominal: General: Abdomen is flat. Tenderness: There is abdominal tenderness. Musculoskeletal: General: Normal range of motion. Skin: General: Skin is warm and dry. Neurological: General: No focal deficit present. Mental Status: She is alert and oriented to person, place, and time. Psychiatric: Mood and Affect: Mood normal. Behavior: Behavior normal. Labs: LABS: CBC with Differential: No results found for: WBC , RBC , HGB , HCT , PLT , MCV , MCH , MCHC , RDW , NRBC , SEGSPCT , BANDSPCT , BLASTSPCT , METASPCT , LYMPHOPCT , PROMYELOPCT , MONOPCT , MYELOPCT , EOSPCT , BASOPCT , MONOSABS , LYMPHSABS , EOSABS , BASOSABS , DIFFTYPE CMP: No results found for: NA , K , CL , CO2 , BUN , CREATININE , AGRATIO , GLUCOSE , GLU , PROT , CALCIUM , BILITOT , ALKPHOS , AST , ALT BMP: No results found for: NA , K , CL , CO2 , BUN , CREATININE , CALCIUM , GLUCOSE , GLU Magnesium:No results found for: MG Troponin: No results found for: TROPHS BNP: No results found for: BNP No results found for: PR1 , BMPR1A , INR , PROTIME , PTT , CHOL , LDLF , HDL Imaging: Assessment/Plan Diagnoses and all orders for this visit: Median arcuate ligament syndrome (CMS-HCC) - Referral to Pain Medicine; Future - Referral to General Surgery; Future Hiatal hernia - Referral to General Surgery; Future documented in this encounter [facility] Work Phone: 04-30-2024 History of Present illness Narrative Pt states her feet and hands have been swelling often Pt states she has to watch how much and what she eats- she has had two emesis in the last month Pt takes dicyclomine twice a day D3 and B12 Images from the original note were not included. Nikki Martins is a 43 y.o. female presents with chief complaint of Abdominal Pain HPI: Is Abdominal Pain This is a chronic problem. The current episode started more than 1 month ago. The onset quality is sudden. The problem occurs constantly. The problem has been waxing and waning (worse with meats, citrus foods, garlic/onion/tomato). The pain is located in the epigastric region. The pain is severe. The quality of the pain is aching (pressure feeling, like fist is being jabbed in diaphragm). The abdominal pain does not radiate. Associated symptoms include anorexia, arthralgias (hands/wrist/feet), nausea and vomiting (occ). Pertinent negatives include no belching, constipation, diarrhea, dysuria, fever, flatus, frequency, headaches, hematochezia, hematuria, melena, myalgias or weight loss. The pain is aggravated by eating and movement. The pain is relieved by Nothing. She has tried proton pump inhibitors (anti spasmodics) for the symptoms. The treatment provided no relief. There is no history of gallstones. SUBJECTIVE: MEDICATIONS: Current Outpatient Medications Medication Instructions amitriptyline (ELAVIL) 50 mg, Nightly omeprazole (PRILOSEC) 20 mg, Oral, Daily before breakfast ondansetron (ZOFRAN) 4 mg, Every 8 hours PRN ALLERGIES: Allergies Allergen Reactions Amoxicillin Hives Percocet [Oxycodone-Acetaminophen] GI intolerance Nausea, vomiting, and dizziness Penicillin G Rash REVIEW OF SYMPTOMS: Review of Systems Constitutional: Negative for appetite change, chills, fever and weight loss. HENT: Negative for congestion, ear pain and sore throat. Eyes: Negative for pain, discharge, redness and visual disturbance. Respiratory: Negative for cough, shortness of breath and wheezing. Cardiovascular: Negative for chest pain, palpitations and leg swelling. Gastrointestinal: Positive for abdominal pain, anorexia, nausea and vomiting (occ). Negative for blood in stool, constipation, diarrhea, flatus, hematochezia and melena. Genitourinary: Negative for difficulty urinating, dysuria, frequency and hematuria. Musculoskeletal: Positive for arthralgias (hands/wrist/feet). Negative for back pain, joint swelling and myalgias. Skin: Negative for rash and wound. Neurological: Negative for dizziness, tremors, seizures, syncope and headaches. Psychiatric/Behavioral: Negative for behavioral problems, self-injury and suicidal ideas. The patient is not nervous/anxious. Hematological: Does not bruise/bleed easily. Endocrine: Negative for polydipsia, polyphagia and polyuria. Allergic/Immunologic: Negative for environmental allergies and food allergies. PAST MEDICAL HISTORY History reviewed. No pertinent past medical history. Past Surgical History: Procedure Laterality Date HYSTERECTOMY 03/2022 family history includes Cancer in her mother; Diabetes in her brother; Mental illness in her brother. OBJECTIVE: Visit Vitals BP 132/82 (BP Location: Left arm, Patient Position: Sitting, BP Cuff Size: Adult long) Pulse 85 Temp 98.5 F (Temporal) Resp 18 Ht 5' 7.5 Wt 129 lb 12.8 oz SpO2 100% BMI 20.03 kg/m Smoking Status Former BSA 1.68 m Physical Exam Vitals and nursing note [...] mass. Tenderness: There is no abdominal tenderness (generalized tenderness epigastric region). Musculoskeletal: General: Normal range of motion. Cervical back: Normal range of motion and neck supple. Right lower leg: No edema. Left lower leg: No edema. Skin: General: Skin is warm and dry. Capillary Refill: Capillary refill takes 2 to 3 seconds. Findings: No rash. Neurological: General: No focal deficit present. Mental Status: She is alert and oriented to person, place, and time. Psychiatric: Mood and Affect: Mood normal. Behavior: Behavior normal. Thought Content: Thought content normal. Judgment: Judgment normal. ASSESSMENT AND PLAN: Follow up in about 2 months (around 07/01/2024) for Recheck. Problem List Items Addressed This Visit Pain of upper abdomen - Primary Cont with GI Is waiting for an appt with surgeon this is scheduled for later in May 2024, she reports that Dr Shellye's office has reached out 3 times about an expedited appt, still nothing Pt is frustrated as she continues to have pain, does not feel getting to the bottom of things I have urged pt to contact the surgeon she was supposed to see and get appt rescheduled, Again have her touch base with her local GI as well Lengthy discussion with pt that this is beyond my scope of practice with her current GI symptoms and if they are not being controlled then she needs to reach out to her specialists Elevated antinuclear antibody (SERA) level Continue with Rheumatology Since last appt I did send letter to Dr Shelley about her SERA pattern of nuclear dot pattern, his office did respond to this letter indicating that he felt this was a non specific finding, and recommended pt to fu with Rheumatology I did send a letter out dated 04/23/[address] Isabel regarding Dr Shelley's opinion regarding this I provided pt with copies of these Also had sent my chart pics with rash, I had advised her to reach out to Rheumatology regarding this, she still needs to get with them, tried to send pics through my chart but did not go through Associated Problem(s): Elevated antinuclear antibody (SERA) level Continue with Rheumatology Since last appt I did send letter to Dr Shelley about her SERA pattern of nuclear dot pattern, his office did respond to this letter indicating that he felt this was a non specific finding, and recommended pt to fu with Rheumatology I did send a letter out dated 04/23/[address] Isabel [address] Shelley's opinion regarding this I provided pt with copies of these Also had sent my chart pics with rash, I had advised her to reach out to Rheumatology regarding this, she still needs to get with them, tried to send pics through my chart but did not go through Associated Problem(s): Pain of upper abdomen Cont with GI Is waiting for an appt with surgeon this is scheduled for later in May 2024, she reports that Dr Shelley's office has reached out 3 times about an expedited appt, still nothing Pt is frustrated as she continues to have pain, does not feel getting to the bottom of things I have urged pt to contact the surgeon she was supposed to see and get appt rescheduled, Again have her touch base with her local GI as well Lengthy discussion with pt that this is beyond my scope of practice with her current GI symptoms and if they are not being controlled then she needs to reach out to her specialists documented in this encounter [facility] 04-30-2024 Instructions Cyndi Epperson NP - 04/30/2024 9:00 AM EST Abd pain: continue to work with your local GI doctor Dr Shelley, I would like him to fill any of your nausea, anti spasmodic meds and omeprazole. This way if you are still needing it, they can be actively engaged in helping you get the help you need. Schedule a follow up with them Rash: Call Dr Isabel's office for them to get an appt to discuss the rashes etc as well documented in this encounter [facility] 03-28-2024 History of Present illness Narrative Associated Problem(s): Pain of upper abdomen Cont with GI Is waiting for an appt with surgeon Pt is frustrated as she continues to have pain, does not feel getting to the bottom of things I have urged pt to contact the surgeon she was supposed to see and get appt rescheduled, Again have her touch base with her local GI as well Lengthy discussion with pt that this is beyond my scope of practice with her current GI symptoms and if they are not being controlled then she needs to reach out to her specialists Associated Problem(s): Elevated antinuclear antibody (SERA) level Continue with Rheumatology Pt was suppose to have a appt on Tuesday with the surgeon however they had called her to cancel her appt and has not called her back to reschedule as of yet. Pt was sent home from work yesterday due to almost passing out she has not returned back to work. She was taken by ambulance to health center and then taken to the hospital and was told they were not going to do anything else for her. Pt states she had gotten blood done yesterday and since her anti spasm medication was taken down she has not been able to stay awake she is very fatigue she states she has slept a total of 20 hrs in the last 24hr Images from the original note were not included. Nikki Martins is a 43 y.o. female presents with chief complaint of Abdominal Pain and GI Problem HPI: Here for a recheck. Still with same complaints of abd pain, saw her GI in [place], was supposed to be sent on to a specialist in [place] Dr Loza Since last visit autoimmune testing was back and she was referred to Rheumatology as well Presents here today , frustrated, miserable, and wanting some form of treatment for her condition. 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 To date not rescheduled. 03/22/[address] Isabel: had not received her labs, she had labs redrawn yesterday fu to [facility] 05/22/24 Off 03/27/24-03/29/24gg Abdominal Pain This is a recurrent problem. The current episode started more than 1 month ago. The onset quality is gradual. The problem occurs constantly. The problem has been waxing and waning. The pain is located in the epigastric region. The pain is severe. The abdominal pain does not radiate. Associated symptoms include anorexia and nausea. Pertinent negatives include no arthralgias, constipation, diarrhea, dysuria, fever, frequency, headaches, myalgias or vomiting. Nothing aggravates the pain. The pain is relieved by Nothing. She has tried proton pump inhibitors, H2 blockers, oral narcotic analgesics and antacids for the symptoms. The treatment provided mild relief. Prior diagnostic workup includes CT scan, GI consult, ultrasound, lower endoscopy and upper endoscopy. There is no history of gallstones or irritable bowel syndrome. GI Problem The primary symptoms include fatigue, abdominal pain and nausea. Primary symptoms do not include fever, vomiting, diarrhea, dysuria, myalgias, arthralgias or rash. The problem has not changed since onset. The fatigue began more than 1 week ago. The illness is also significant for anorexia. The illness does not include chills, constipation or back pain. Associated medical issues do not include inflammatory bowel disease, gallstones, gastric bypass, bowel resection or irritable bowel syndrome. SUBJECTIVE: MEDICATIONS: Current Outpatient Medications Medication Instructions amitriptyline (ELAVIL) 50 mg, Nightly dicyclomine (BENTYL) 10 mg, Oral, Every 8 hours PRN hyoscyamine ER (LEVBID) 375 mcg, 2 times daily omeprazole (PRILOSEC) 20 mg, Oral, Daily before breakfast, Do not crush or chew. ondansetron (ZOFRAN) 4 mg, Every 8 hours PRN traMADol (ULTRAM) 50 mg, Every 6 hours PRN ALLERGIES: Allergies Allergen Reactions Amoxicillin Hives Percocet [Oxycodone-Acetaminophen] GI intolerance Nausea, vomiting, and dizziness Penicillin G Rash REVIEW OF SYMPTOMS: Review of Systems Constitutional: Positive for fatigue and unexpected weight change. Negative for appetite change, chills and fever. HENT: Negative for congestion, ear pain and sore throat. Eyes: Negative for pain, discharge, redness and visual disturbance. Respiratory: Negative for cough, shortness of breath and wheezing. Cardiovascular: Negative for chest pain, palpitations and leg swelling. Gastrointestinal: Positive for abdominal pain, anorexia and nausea. Negative for blood in stool, constipation, diarrhea and vomiting. Genitourinary: Negative for difficulty urinating, dysuria and frequency. Musculoskeletal: Negative for arthralgias, back pain, joint swelling and myalgias. Skin: Negative for rash and wound. Neurological: Positive for dizziness. Negative for tremors, seizures, syncope and headaches. Psychiatric/Behavioral: Negative for behavioral problems, self-injury and suicidal ideas. The patient is not nervous/anxious. Hematological: Does not bruise/bleed easily. Endocrine: Negative for polydipsia, polyphagia and polyuria. Allergic/Immunologic: Negative for environmental allergies and food allergies. PAST MEDICAL HISTORY History reviewed. No pertinent past medical history. Past Surgical History: Procedure Laterality Date HYSTERECTOMY 03/2022 family history includes Cancer in her mother; Diabetes in her brother; Mental illness in her brother. OBJECTIVE: Visit Vitals BP 132/84 (BP Location: Left arm, Patient Position: Sitting, BP Cuff Size: Adult long) Pulse 85 Temp 98.5 F (Temporal) Resp 19 Ht 5' 7.5 Wt 123 lb 6.4 oz SpO2 99% BMI 19.04 kg/m Smoking Status Former BSA 1.63 m Physical Exam Vitals and nursing note [...] mass. Tenderness: There is no abdominal tenderness. Musculoskeletal: General: Normal range of motion. Cervical back: Normal range of motion and neck supple. Right lower leg: No edema. Left lower leg: No edema. Skin: General: Skin is warm and dry. [...] upper abdomen - Primary Cont with GI Is waiting for an appt with surgeon Pt is frustrated as she continues to have pain, does not feel getting to the bottom of things I have urged pt to contact the surgeon she was supposed to see and get appt rescheduled, Again have her touch base with her local GI as well Lengthy discussion with pt that this is beyond my scope of practice with her current GI symptoms and if they are not being controlled then she needs to reach out to her specialists Elevated antinuclear antibody (SERA) level Continue with Rheumatology documented in this encounter [facility] 02-29-2024 Note Subjective Patient ID: Nikki Martins [...] November shortly after a camping trip to [place] with her boyfriend who apparently has similar symptoms. She was in [place] for 2 days continuing and swimming. She denies any fresh water consumption. She says since that time she has had epigastric discomfort and bloating and decreased appetite. She says she has lost approximately 15 pounds. She says that she is mostly eating boost and Ensure. She is planning on going to [facility] 02 March for continued evaluation. Currently, she denies fever, chills, night sweats, chest pain, shortness of breath, myalgia, arthralgia, joint swelling, rash. She denies hematochezia. She denies hematuria. She says she has had hair loss. [id number] Past medical history/past surgical history-endometriosis, G3, P4, tonsils, tota hysterectomy 2021 Social history-lives in [place], works at [employer], rare alcohol, quit smoking 3 years ago, [...] parasite DNA. I will check her thyroid [facility] 02-22-2024 History of Present illness Narrative Associated [...] ?GI source, anxiety?? documented in this encounter [facility] 01-19-2024 Evaluation + Plan note Future Scheduled TestsH. pylori Breath Test 01/19/24 [facility] 01-11-2024 History of Present illness Narrative Associated Problem(s): Pain of upper abdomen Cont omeprazole and anti spasmodic Has GI appt 01/19/24, Unclear etiology: I do not think all related to HH, ?IBS? ??anxiety Will fu in 6 weeks Pt states that pain has not changed, the medication does help where it is tolerable but overall no changes. Pt states she has had frequent diarrhea since her colonoscopy and her bp at the hospital was 168/117 Pt was told that she has a Hiatal hernia and biopsied a few dark spots-waiting for results. Images from the original note were not included. Nikki Martins is a 43 y.o. female presents with chief complaint of No chief complaint on file. HPI: Fu to abd pain: since last visit she has had HIDA scan which was negative Also had EGD/Colonoscopy: did biopsy to r/o h pylori, and she also was told had a HH No other new symptoms at this time She is taking PPI as well as anti spasmodic Was to have an appt with GI as well: this was rescheduled for 01/19/24. SUBJECTIVE: MEDICATIONS: Current Outpatient Medications Medication Instructions dicyclomine (BENTYL) 10 mg, Oral, Every 8 hours PRN omeprazole (PRILOSEC) 20 mg, Oral, Daily before breakfast, Do not crush or chew. ondansetron ODT (ZOFRAN-ODT) 4 mg, Oral, Every 8 hours PRN traMADol (ULTRAM) 50 mg, Oral, Every 6 hours PRN, Pt is taking half of 50mg (25mg) every 6hrs PRN ALLERGIES: Allergies Allergen Reactions Amoxicillin Hives Percocet [Oxycodone-Acetaminophen] GI intolerance Nausea, vomiting, and dizziness Penicillin G Rash REVIEW OF SYMPTOMS: Review of Systems Constitutional: Negative for appetite change, chills and fever. HENT: Negative for congestion, ear pain and sore throat. Eyes: Negative for pain, discharge, redness and visual disturbance. Respiratory: Negative for cough, shortness of breath and wheezing. Cardiovascular: Negative for chest pain, palpitations and leg swelling. Gastrointestinal: Positive for abdominal pain. Negative for blood in stool, constipation, diarrhea (liquid yellow since her scope yesterday), nausea (occ) and vomiting. Genitourinary: Negative for difficulty urinating, dysuria and frequency. Musculoskeletal: Negative for arthralgias, back pain, joint swelling and myalgias. Skin: Negative for rash and wound. Neurological: Negative for dizziness, tremors, seizures, syncope and headaches. Psychiatric/Behavioral: Negative for behavioral problems, self-injury and suicidal ideas. The patient is not nervous/anxious. Hematological: Does not bruise/bleed easily. Endocrine: Negative for polydipsia, polyphagia and polyuria. Allergic/Immunologic: Negative for environmental allergies and food allergies. PAST MEDICAL HISTORY No past medical history on file. Past Surgical History: Procedure Laterality Date HYSTERECTOMY 03/2022 family history includes Cancer in her mother; Diabetes in her brother; Mental illness in her brother. OBJECTIVE: Visit Vitals BP 140/80 (BP Location: Left arm, Patient Position: Sitting, BP Cuff Size: Adult long) Pulse 71 Temp 98 F (Temporal) Resp 20 Ht 5' 7.5 Wt 128 lb 9.6 oz SpO2 100% BMI 19.84 kg/m Smoking Status Former BSA 1.67 m [...] mass. Tenderness: There is no abdominal tenderness (generalized upper abd). There is no guarding or rebound. Musculoskeletal: General: Normal range of motion. Cervical back: Normal range of motion and neck supple. Right lower leg: No edema. Left lower leg: No edema. Skin: General: Skin is warm and dry. [...] Addressed This Visit Pain of upper abdomen Cont omeprazole and anti spasmodic Has GI appt 01/19/24, Unclear etiology: I do not think all related to HH, ?IBS? ??anxiety Will fu in 6 weeks Encounter for screening mammogram for malignant neoplasm of breast - Primary Relevant Orders Bilateral screening mammogram documented in this encounter [facility] 12-20-2023 Note Progress Note-Nurse Patient called requesting Aubreefran after yesterdays visit. Sent to pharmacy per BING Bhakta [facility] 12-20-2023 Hospital Discharge instructions Patient Education 12/19/2023 23:16:40 Hepatomegaly, Ivxh-vk-Lyuu Hepatomegaly Hepatomegaly is when the liver is [...] asked to do the following: Medicines Take ctqg-hmy-rlrkkkq and prescription medicines only as told by your doctor. Do not take any new medicine unless your doctor says it is okay. ?This includes vitamins, herbs, supplements, and xxhs-mje-dejkpnn medicines. Some of these can hurt your [...] provider. Document Revised: 03/24/2022 Document Reviewed: 03/24/2022 [employer] Patient Education 2022 [employer]. 12/19/2023 23:16:40 Abdominal Pain, Adult Abdominal Pain, [...] Follow these instructions at home: Medicines Take jtfn-llh-guujfxm and prescription medicines only as told by [...] Watch your condition for any changes. Take cmvk-hnw-kewyuel and prescription medicines only as told by [...] provider. Document Revised: 06/13/2020 Document Reviewed: 09/03/2019 [employer] Patient Education 2022 [employer]. Follow Up Care 12/19/2023 16:03:37 With:Booker Shelley Address: [address] [place] [address], [facility] [address] [phone] Business (1) When:12/22/2023 With:CYNDI EPPERSON Address: [address] [place] [phone] Business (1) When:Within 3 Day(s) [facility] 12-19-2023 Note ED Patient Education Note Gastroenterology [...] to do the following: Medicines ? Take qept-pnq-swqetbw and prescription medicines only as told by your doctor. ? Do not take any new medicine unless your doctor says it is okay. ? This includes vitamins, herbs, supplements, and oebs-tsd-ubfojeb medicines. Some of these can hurt your [...] provider. Document Revised: 03/24/2022 Document Reviewed: 03/24/2022 [employer] Patient Education ? 2022 [employer]. Abdominal Pain, Adult Pain in the abdomen [...] these instructions at home: Medicines ? Take mcmf-cmx-rjfgjak and prescription medicines only as told by [...] tar. ? You (more content not included)... [facility] Evaluation + Plan note No data available for this section [facility] Evaluation + Plan note Future Appointments Appointment Date:04/19/2024 02:45:00 PM Scheduled Provider:Daphney MCKINLEY, Booker Jenkins Location[place] Appointment Type:[facility] Follow Up Future Scheduled TestsH. pylori Breath Test 01/19/24 [facility] Evaluation + Plan note Future Appointments Appointment Date:03/16/2024 09:00:00 AM Scheduled Provider: Location:[facility] Appointment Type:Surgery FT Future Scheduled TestsH. pylori Breath Test 01/19/24 [facility] Evaluation + Plan note Future Appointments Appointment Date:04/19/2024 02:45:00 PM Scheduled Provider:Booker Shelley MD Location[place] Appointment Type:[facility] Follow Up Future Scheduled TestsH. pylori Breath Test 01/19/24NM Gastric Emptying Study 01/19/24 [facility] Evaluation note No assessment inform ation available [facility] Work Phone: Evaluation note Diagnosis Pain [...] immunological findings [facility] Diagnosis Pain of upper abdomen- Primary Enlarged liver Hepatomegaly Encounter for screening mammogram for malignant neoplasm of breast- Primary Pain of upper abdomen Pain of upper abdomen- Primary Enlarged liver Hepatomegaly Panic attack (CMS/HCC) Panic disorder without agoraphobia Chest tightness Other chest pain Pain of upper abdomen [facility] Diagnosis Pain of upper abdomen- Primary Enlarged liver Hepatomegaly Encounter for screening mammogram for malignant neoplasm of breast- Primary Pain of upper abdomen Pain of upper abdomen- Primary Enlarged liver Hepatomegaly Panic attack (CMS/HCC) Panic disorder without agoraphobia Chest tightness Other chest pain Pain of upper abdomen- Primary Elevated antinuclear antibody (SERA) level Other and unspecified nonspecific immunological findings [facility] Diagnosis Pain of upper abdomen- Primary Enlarged liver Hepatomegaly Encounter for screening mammogram for malignant neoplasm of breast- Primary Pain of upper abdomen Pain of upper abdomen- Primary Enlarged liver Hepatomegaly Panic attack (CMS/HCC) Panic disorder without agoraphobia Chest tightness Other chest pain Pain of upper abdomen- Primary Elevated antinuclear antibody (SERA) level Other and unspecified nonspecific immunological findings Pain of upper abdomen [facility] Diagnosis Pain of upper abdomen- Primary [facility] Diagnosis Encounter for screening mammogram for malignant neoplasm of breast- Primary Pain of upper abdomen [facility] Diagnosis Pain of upper abdomen [facility] Diagnosis Pain of upper abdomen- Primary Enlarged liver Hepatomegaly Encounter for screening mammogram for malignant neoplasm of breast- Primary Pain of upper abdomen Pain of upper abdomen- Primary Enlarged liver Hepatomegaly Panic attack (CMS/HCC) Panic disorder without agoraphobia Chest tightness Other chest pain Pain of upper abdomen- Primary Elevated antinuclear antibody (SERA) level Other and unspecified nonspecific immunological findings Pain of upper abdomen- Primary Elevated antinuclear antibody (SERA) level Other and unspecified nonspecific immunological findings [facility] Diagnosis Pain of upper abdomen- Primary Enlarged liver Hepatomegaly Encounter for screening mammogram for malignant neoplasm of breast- Primary Pain of upper abdomen Pain of upper abdomen- Primary Enlarged liver Hepatomegaly Panic attack (CMS/HCC) Panic disorder without agoraphobia Chest tightness Other chest pain Pain of upper abdomen- Primary Elevated antinuclear antibody (SERA) level Other and unspecified nonspecific immunological findings Pain of upper abdomen- Primary Elevated antinuclear antibody (SERA) level Other and unspecified nonspecific immunological findings Pain of upper abdomen [facility] Diagnosis Pain of upper abdomen- Primary Enlarged liver Hepatomegaly Encounter for screening mammogram for malignant neoplasm of breast- Primary Pain of upper abdomen Pain of upper abdomen- Primary Enlarged liver Hepatomegaly Panic attack (CMS/HCC) Panic disorder without agoraphobia Chest tightness Other chest pain Pain of upper abdomen- Primary Elevated antinuclear antibody (SERA) level Other and unspecified nonspecific immunological findings Pain of upper abdomen- Primary Elevated antinuclear antibody (SERA) level Other and unspecified nonspecific immunological findings Pain of upper abdomen [facility] Diagnosis 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 Hiatal hernia Diaphragmatic hernia without mention of obstruction or gangrene documented in this encounter [facility] Work Phone: Hospital Discharge instructions No data available for this section [facility] Progress note No data available for this section [facility] Reason for referral (narrative) Referred by: Booker Shelley MD [facility] Summary Purpose Family History No [...] No data available for this section No data available for this section No Family History Records FoundNo Family History Records Found No data available for this section No Family History Records FoundNo Family History Records FoundNo Family History Records Found Advance Directives No Advanced Directives Records Found Advance Directive Response Recorded Date/ Time Advance Directives No March 03, 2021 9:55am Advance Directive Response Recorded Date/ Time Advance Directives No March 03, 2021 8:55am Additional Source Comments INFORMATION SOURCE (unrecogn ized section and content) DATE CREATED AUTHOR 09/20/2022 [facility] DATE CREATED AUTHOR AUTHOR'S ORGANIZ ATION 12/20/2023 [facility] DATE CREATED AUTHOR AUTHOR'S ORGANIZ ATION 12/21/2023 [facility] DATE CREATED AUTHOR AUTHOR'S ORGANIZ ATION 01/21/2024 [facility] DATE CREATED AUTHOR AUTHOR'S ORGANIZ ATION 03/03/2024 [facility] DATE CREATED AUTHOR AUTHOR'S ORGANIZ ATION 03/04/2024 [facility] DATE CREATED AUTHOR AUTHOR'S ORGANIZ ATION 03/25/2024 [facility] DATE CREATED AUTHOR AUTHOR'S ORGANIZ ATION 04/10/2024 [facility] DATE CREATED AUTHOR AUTHOR'S ORGANIZ ATION 05/02/2024 [facility] DATE CREATED AUTHOR AUTHOR'S ORGANIZ ATION 05/26/2024 [facility] DATE CREATED AUTHOR AUTHOR'S ORGANIZ ATION 05/30/2024 [facility] Patient Care team informatio n (unrecognized section and content) Team Status: Inactive Member Role Status Dates Samuel Lacey DO Attending Provider Active Star t: January 10, 2024 End: January 10, 2024 Field Director Relationship Specialty Start Date End Date Rogelio Brown MD [address] [place] [address] PCP - General Family Medicine 12/12/23 Cyndi Epperson NP [address] [place] [address] Nurse Practitioner Family Medicine 12/12/23 Field Director Relationship Specialty Start Date End Date Rogelio Brown MD [address] [place] [address] PCP - General Family Medicine 12/12/23 Cyndi Epperson NP [address] [place] [address] Nurse Practitioner Family Medicine 12/12/23 Field Director Relationship Specialty Start Date End Date Rogelio Brown MD [address] [place] [address] PCP - General Family Medicine 12/12/23 Cyndi Epperson NP [address] [place] [address] Nurse Practitioner Family Medicine 12/12/23 Field Director Relationship Specialty Start Date End Date Rogelio Brown MD [address] [place] [address] PCP - General Family Medicine 12/12/23 Cyndi Epperson NP [address] [place] [address] Nurse Practitioner Family Medicine 12/12/23 Field Director Relationship Specialty Start Date End Date Rogelio Brown MD [address] [place] [address] PCP - General Family Medicine 12/12/23 Cyndi Epperson NP [address] [place] [address] Nurse Practitioner Family Medicine 12/12/23 Team Status: Active Member Role Status Dates Edwardo Mann DO Attending Provider Active Sta rt: February 09, 2024 Team Status: Inactive Member Role Status Dates Weston Isabel MD Attending Provider Active St art: March 27, 2024 End: March 27, 2024 Field Director Relationship Specialty Start Date End Date Rogelio Brown MD [address] [place] [address] PCP - General Family Medicine 12/12/23 Cyndi Epperson NP [address] [place] [address] Nurse Practitioner Family Medicine 12/12/23 Field Director Relationship Specialty Start Date End Date Rogelio Brown MD [address] [place] [address] PCP - General Family Medicine 12/12/23 Cyndi Epperson NP [address] [place] [address] Nurse Practitioner Family Medicine 12/12/23 Field Director Relationship Specialty Start Date End Date Rogelio Brown MD [address] [place] [address] PCP - General Family Medicine 12/12/23 Cyndi Epperson NP [address] [place] [address] Nurse Practitioner Family Medicine 12/12/23 Field Director Relationship Specialty Start Date End Date Rogelio Brown MD [address] [place] [address] PCP - General Family Medicine 12/12/23 Cyndi Epperson NP [address] [place] [address] Nurse Practitioner Family Medicine 12/12/23 Field Director Relationship Specialty Start Date End Date Rogelio Brown MD [address] [place] [address] PCP - General Family Medicine 12/12/23 Cyndi Epperson NP [address] [place] [address] Nurse Practitioner Family Medicine 12/12/23 Field Director Relationship Specialty Start Date End Date Rogelio Brown MD [address] [place] [address] PCP - General Family Medicine 12/12/23 Cyndi Epperson NP [address] [place] [address] Nurse Practitioner Family Medicine 12/12/23 Field Director Relationship Specialty Start Date End Date Rogelio Brown MD [address] [place] [address] PCP - General Family Medicine 12/12/23 Cyndi Epperson NP [address] [place] [address] Nurse Practitioner Family Medicine 12/12/23 Field Director Relationship Specialty Start Date End Date Rogelio Brown MD [address] [place] [address] PCP - General Family Medicine 12/12/23 Cyndi Epperson NP [address] [place] [address] Nurse Practitioner Family Medicine 12/12/23 Field Director Relationship Specialty Start Date End Date Rogelio Brown MD [address] [place] [address] PCP - General Family Medicine 12/12/23 Cyndi Epperson NP [address] [place] [address] Nurse Practitioner Family Medicine 12/12/23 Goals (unrecognized section and content) Goals may be documented in a n alternate section Reason for Visit (unrecogniz ed section and content) Reason Comments Med Refill Reason Comments Abdominal Pain GI Problem Reason Comments Abdominal Pain Reason Onset Date Comments Med Refill 05/11/2024 Reason Comments New Patient Visit New patient visit FOR RECORDS PERTAINING TO PATIENTS WHO ARE [...] BE BASED ON THE PRIMARY CLINICAL RECORDS. [facility] [employer] [facility]. provides no warranty or guarantee of the accuracy or completeness of information in this document.
== END 2024-05-31 07:45 | disposition home or self-care (01) ==
LOC: LAB 07:46
PROVIDERS: PCP Nurse Practitioner; Visit Provider Internal Medicine Rheumatology
DX: R76.0 Raised antibody titer (principal)
CPT/HCPCS: 36415; 83516

== ENCOUNTER 2024-11-28 15:24 | Emergency (ER) | payer OTHER, SELFPAY ==
[2024-11-28] VITALS (20 sets, daily range): BP systolic 124–166; BP diastolic 73–105; PULSE 58–81; TEMP 36.9; O2SAT 97–100; BMI 20.4
--- NOTE | 2024-11-28 15:27 | XR_ITS ---
The [place] [id number] Patient Name: LORA MARTINS MRN: [id number] date: 1980 Sex: F Assigned Patient Location: ED.MAIN Current Patient Location: ED.MAIN Accession/Order Number: [id number] Exam Date: 11/28/2024 16:14 Report Date: 11/28/2024 16:14 At the request of: MAISHA LOMELI MD Procedure: XR chest 1V Single view chest: CLINICAL HISTORY: cp COMPARISON: None FINDINGS: The heart is normal in size. The lungs are clear. The pulmonary vasculature is normal. Mediastinum and hilar regions are unremarkable. No pleural effusions are seen. Visualized bones are intact. XR/XR chest 1V IMPRESSION: NEGATIVE CHEST. Impression dictated by: Kaden Gupta Jr., D.O. 11/28/2024 4:14 PM Dictation Location: [place] [address] Electronically authenticated by: [id number] Y Date: 11/28/2024 16:14
--- NOTE | 2024-11-28 15:27 | ECG_ITS ---
[facility] Test Date: 2024-11-28 Pat Name: LORA MARTINS Department: Room: - Gender: Female Cannoneer: : 1980 Requested By: [id number] Order Number: [id number] Reading MD: LOLY NAVARRO M.D. Measurements Intervals [place] Rate: 71 P: 90 VT: 172 QRS: 78 QRSD: 84 T: 71 QT: 374 QTc: 396 Interpretive Statements 1100 Sinus rhythm 9110 normal ECG Compared to ECG 02/21/2024 16:29:47 No significant changes Electronically Signed On 11-30-2024 6:42:13 EDT by LOLY NAVARRO M.D.
--- OUTSIDE RECORDS SUMMARY | 2024-11-28 15:34 | XMS_ITS | Encounter Summary ---
Author Organization [facility] Address [address] [facility] [place] [address] Care Team Providers Care Range Rider Name Role Phone Rogelio Brown MD Primary Care Provider Cyndi Epperson NP Unavailable [phone] Encounter Details Date Type Department Care Team ([facility] st Contact Info) Description 02/09/2024 Orders Only [facility] [address] [place] [address] Cyndi Epperson NP [address] [place] [address] Social History Tobacco Use Types Packs/Day Years Used Date Smoking Tobacco: Former Cigarettes Q uit: 2020 Smokeless Tobacco: Never Alcohol Use Standard Drinks/Week Comments Not Currently 0 (1 standard drink = 0.6 oz pure alcohol) caffine: 1 cup of coffee daily Comments Unknown Sex and Gender Information Value Date Recorded Sex Assigned at Female 12/22/2023 8:58 AM EDT Legal Sex Female 11:21 PM EDT Gender Identity Female 12/22/2023 8:58 AM EDT Sexual Orientation Straight 12/22/2023 8: 58 AM EDT documented as of this encounter Plan of Treatment Not on file documented as of this encounter Procedures Procedure Name Priority Date/Time Associated Diagnosis Comments SCANNED LABS Routine 02/09/2024 7:57 AM EDT documented in this encounter Results * SCANNED LABS (02/09/2024 7:57 AM EDT) us Cyndi Aichholz HOSPICE EDUCATOR LAB CHG PERFORMABLES Final Resu lt documented in this encounter Visit Diagnoses Not on filedocumented in this encounter Care Teams Range Rider Relationship Specialty Start Date End Date Rogelio Brown MD [address] [place] [address] PCP - General Family Medicine 12/12/23 Cyndi Epperson NP [address] [place] [address] Nurse Practitioner Family Medicine 12/12/23 documented as of this encounter
--- OUTSIDE RECORDS SUMMARY | 2024-11-28 15:34 | XMS_ITS | Encounter Summary ---
Author Organization [facility] Address [address] [facility] [place] [address] Care Team Providers Care Pharmacy Technician Infusion Name Role Phone Rogelio Brown MD Primary Care Provider Cyndi Epperson FRAME CARVER SPINDLE Unavailable [phone] Encounter Details Date Type Department Care Team ([facility] st Contact Info) Description 12/15/2023 Orders Only [facility] [address] [facility] [place] [phone] Mayuri Diaz MD [address] [place] [address] Social History Tobacco Use Types Packs/Day Years Used Date Smoking Tobacco: Never Assessed Comments Unknown Sex and Gender Information Value Date Recorded Sex Assigned at Female 12/22/2023 8:58 AM EDT Legal Sex Female 11:21 PM EDT Gender Identity Female 12/22/2023 8:58 AM EDT Sexual Orientation Straight 12/22/2023 8: 58 AM EDT documented as of this encounter Plan of Treatment Not on file documented as of this encounter Procedures Procedure Name Priority Date/Time Associated Diagnosis Comments XR CHEST 2 VIEWS Routine 12/15/2023 12:02 PM EDT documented in this encounter Results * XR chest 2 views (12/15/2023 12:02 PM EDT) Anatomical Region Laterality Modality Chest Radiographic Toña ging Mayuri Diaz MD IMG XR PROCEDURES Final Result documented in this encounter Visit Diagnoses Not on filedocumented in this encounter Care Teams Pharmacy Technician Infusion Relationship Specialty Start Date End Date Rogelio Brown MD [address] [place] [address] PCP - General Family Medicine 12/12/23 Cyndi Epperson NP [address] [place] [address] Nurse Practitioner Family Medicine 12/12/23 documented as of this encounter
--- OUTSIDE RECORDS SUMMARY | 2024-11-28 15:34 | XMS_ITS | Encounter Summary ---
Author Organization [facility] Address [address] [place] [address] Care Team Providers Care Media Sales Representative Name Role Phone Rogelio Brown MD Primary Care Provider [phone] Cyndi Epperson NP Unavailable [phone] Encounter Details Date Type Department Care Team ([facility] st Contact Info) Description 02/22/2024 Orders Only [facility] [address] [place] [address] Cyndi Epperson NP [address] [place] [address] Social History Tobacco Use Types Packs/Day Years [...] Date/Time Associated Diagnosis Comments SCANNED LABS Routine 02/22/2024 3:[address] ANGIO CHEST W CONT(INCL WO) Routine 02/21/2024 8:48 AM EDT documented in this encounter Results * SCANNED LABS (02/22/2024 3:09 PM EDT) us Cyndi Epperson ADMINISTRATIVE SUPPORT COORDINATOR LAB CHG PERFORMABLES Final Resu lt * CT ANGIO CHEST W CONT(INCL WO) (02/21/2024 8:48 AM EDT) Anatomical Region Laterality Modality Radiographic Toña ging us Cyndi Epperson ADMINISTRATIVE SUPPORT COORDINATOR IMG XR PROCEDURES Final Result documented in this encounter Visit Diagnoses Not on filedocumented in this encounter Care Teams Media Sales Representative Relationship Specialty Start Date End Date Rogelio Brown MD [address] [place] [address] PCP - General Family Medicine 12/12/23 Cyndi Epperson NP [address] [place] [address] Nurse Practitioner Family Medicine 12/12/23 documented as of this encounter
--- OUTSIDE RECORDS SUMMARY | 2024-11-28 15:34 | XMS_ITS | Encounter Summary ---
Author Organization [facility] Address [address] [place] [address] Care Team Providers Care Supervisor Special Services Name Role Phone Rogelio Brown MD Primary Care Provider Cyndi Epperson NP Unavailable [phone] Encounter Details Date Type Department Care Team (Late st Contact Info) Description 01/27/2024 Clinisync Result Encounter [facility] External Department Unsolicited Cyndi Epperson, SURINDER [address] [place] [address] Social History Tobacco Use Types Packs/Day Years [...] Procedure Name Priority Date/Time Associated Diagnosis Comments MM TOMOSYNTHESIS SCREENING BI 01/27/2024 12:09 PM EDT documented in this encounter Results * MM TOMOSYNTHESIS SCREENING BI (01/27/2024 12:09 PM EDT) Anatomical Region Laterality Modality Other 01/27/2024 12:0 9 PM EDT Narrative 01/27/2024 12:10 PM EDT [facility] [place] [id number] Mammography Report Signed Patient: LORA MARTINS MR#: [id number] : 1980 Acct:[id number] Age/Sex: 43 / F ADM Date: 01/27/24 Loc: MAMMO Attending Dr: Cyndi Epperson NP Ordering Physician: Cyndi Epperson NP Results: Date of Service: 01/27/24 Follow Up: Procedure(s): MM tomosynthesis screening BI Accession Number(s): [id number] cc: Cyndi Epperson NP Patient Name: LORA MARTINS MR#: [id number] : 1980 Exam Date: 01/27/2024 Ordering Doctor: KP Epperson CNP RADIOLOGY REPORT PROCEDURE: MM TOMOSYNTHESIS SCREENING BI COMPARISON: MAMMO POST BIOPSY LEFT, 09/22/2021. MG MAMM DIAGNOSTIC 3D [place] CAD, 04/08/2022. INDICATIONS: Screening for malignant neoplasm Calculator Name NCI Breast Cancer Risk Assessment Tool 5 Year Breast Cancer Risk 1.40% Lifetime Breast Cancer Risk 10.00% Personal Breast Cancer No Personal Ovarian Cancer No Treatments None Family Cancers Grandmother-paternal with breast cancer at age 55; Father with unknown cancer at age 59; Mother with pancreatic cancer at age 57. LOCATION: [facility] BREAST COMPOSITION: The breasts are heterogeneously dense,which may obscure small masses. FINDINGS: DIAGNOSTIC CATEGORY 2--BENIGN FINDING. NO CHANGE FROM COMPARISON. Scattered benign-appearing nodules are present. Scattered benign-appearing calcifications are present. Scattered benign-appearing lymph nodes are present. RIGHT BREAST: No significant suspicious finding. LEFT BREAST: No significant suspicious finding. RECOMMENDATIONS: ROUTINE MAMMOGRAM AND CLINICAL EVALUATION IN 12 MONTHS. PLEASE NOTE: A NORMAL MAMMOGRAM DOES NOT EXCLUDE THE POSSIBILITY OF BREAST CANCER. A CLINICALLY SUSPICIOUS PALPABLE LUMP SHOULD BE BIOPSIED. Dictated by: Tao Lamb MD on 01/27/2024 at 12:08 Approved by: Tao Lamb MD on 01/27/2024 at 12:09 Dictated By: Tao Lamb M.D. Signed By: 01/27/24 1210 DD/ 1209 TD/TT: Director Data Architecture: Procedure Note Radiology, Radiologist, MD - 01/27/2024 [facility] [place] [id number] Mammography Report Signed Patient: LORA MARTINS LMR#: [id number] : 1980Acct:[id number] Age/Sex: 43 / FADM Date: 01/27/24 Loc: MAMMO Attending Dr: Cyndi Epperson NP Ordering Physician: Cyndi Epperson NPResults: Date of Service: 01/27/24Follow Up: Procedure(s): MM tomosynthesis screening BI Accession Number(s): [id number] cc: Cyndi Epperson NP Patient Name: LORA MARTINS MR#: [id number] : 1980 Exam Date: 01/27/2024 Ordering Doctor: KP Epperson HVAC TECHNICIAN RESIDENTIAL RADIOLOGY REPORT PROCEDURE: MM TOMOSYNTHESIS SCREENING BI COMPARISON: MAMMO POST BIOPSY LEFT, 09/22/2021. MG MAMM DIAGNOSTIC 3DBIL CAD, 04/08/2022. INDICATIONS: Screening for malignant neoplasm Calculator Name NCI Breast Cancer Risk Assessment Tool 5 Year Breast Cancer Risk 1.40% Lifetime Breast Cancer Risk 10.00% Personal Breast Cancer No Personal Ovarian Cancer No Treatments None Family Cancers Grandmother-paternal with breast cancer at age 55; Father with unknown cancer at age 59; Mother with pancreatic cancer at age57. LOCATION: [facility] BREAST COMPOSITION: The breasts are heterogeneously dense,which may obscure small masses. FINDINGS: DIAGNOSTIC CATEGORY 2--BENIGN FINDING. NO CHANGE FROM COMPARISON. Scattered benign-appearing nodules are present. Scatteredbenign-appearing calcifications are present. Scattered benign-appearing lymph nodes are present. RIGHT BREAST: No significant suspicious finding. LEFT BREAST: No significant suspicious finding. RECOMMENDATIONS: ROUTINE MAMMOGRAM AND CLINICAL EVALUATION IN 12 MONTHS. PLEASE NOTE: A NORMAL MAMMOGRAM DOES NOT EXCLUDE THE POSSIBILITY OFBREAST CANCER. A CLINICALLY SUSPICIOUS PALPABLE LUMP SHOULD BE BIOPSIED. Dictated by: Tao Lamb MD on 01/27/2024 at 12:08 Approved by: Toa Lamb MD on 01/27/2024 at 12:09 Dictated By: Tao Lamb M.D. Signed By:01/27/24 1210 DD/ 1209 TD/TT: Director Data Architecture: us Cyndi Epperson LIVING COACH [facility] Final Result documented in this encounter Visit Diagnoses Not on filedocumented in this encounter Care Teams Supervisor Special Services Relationship Specialty Start Date End Date Rogelio Brown MD [address] [place] [address] PCP - General Family Medicine 12/12/23 Cyndi Epperson NP [address] [place] [address] Nurse Practitioner Family Medicine 12/12/23 documented as of this encounter
--- OUTSIDE RECORDS SUMMARY | 2024-11-28 15:34 | XMS_ITS | Clinical Summary ---
Author Organization [facility] Address [id number] [address] [place] [address] Care Team Providers Care Director Targeted Marketing Name Role Phone Unavailable Primary Care Provider Unavailabl e Social History Tobacco Use Types Packs/Day Years Used Date Smoking Tobacco: Never Assessed Childcare Answer Date Recorded Childcare Unknown 10/18/2018 Employment Answer Date Recorded Employment Unknown 10/18/2018 Comments Unknown Sex and Gender Information Value Date Recorded Sex Assigned at Not on file Legal Sex Female 12:12 PM EDT Gender Identity Not on file Sexual Orientation Not on file Plan of Treatment Health Maintenance Due Date Last Done Comments Depression Screening 1990 Tobacco Screening 1990 Adult BMI Screening 1996 DTaP,Tdap and Td Vaccines (1 - Tdap) 1997 Pap Smear 08/19/2017 08/19/2014 Influenza Vaccine 01/07/2025 Medical Devices Not on file Procedures Procedure Name Priority Date/Time Associated Diagnosis Comments HIGH RISK HPV W/INEZ Routine 08/19/2014 12:00 PM EDT from Last 3 Months or Most Recently Relevant to Health Maintenance Results * High risk HPV w/inez (08/19/2014 12:00 PM EDT) Hpv specimen type ThinPrep 08/20/2014 2:32 PM EDT [facility] Hpv 16 Negative Negative 08/21/2014 2:55 PM EDT [facility] Hpv 18 Negative Negative 08/21/2014 2:55 PM EDT [facility] Other high risk hpv Negative Negative 08/21/2014 2:55 PM EDT [facility] Comment: HPV types 31,33,35,39,45,52,56,58,59,66 and 68 DNA were undetectable. 08/19/2014 12:0 0 PM EDT 08/20/2014 2:27 PM EDT us Conversion Provider LAB BLOOD ORDERABLES Elzbieta strong Result [facility] from Last 3 Months or Most Recently Relevant to Health Maintenance
--- OUTSIDE RECORDS SUMMARY | 2024-11-28 15:34 | XMS_ITS | Encounter Summary ---
Author Organization [facility] Address [address] [facility] [place] [address] Care Team Providers Care First Responder Name Role Phone Rogelio Brown MD Primary Care Provider Cyndi Epperson NP Unavailable [phone] Encounter Details Date Type Department Care Team ([facility] st Contact Info) Description 01/30/2024 Orders Only [facility] [address] [place] [address] Cyndi Epperson, SURINDER [address] [place] [address] Social History Tobacco Use Types Packs/Day Years [...] Procedure Name Priority Date/Time Associated Diagnosis Comments BI MAMMOGRAM SCREENING TOMOSYNTHESIS BILATERAL Routine 01/30/2024 11:32 AM EDT documented in this encounter Results * Bilateral screening mammogram with tomosynthesis (01/30/2024 11:32 AM EDT) Anatomical Region Laterality Modality Breast Bilateral Mammography us Cyndi Epperson RIGHT OF WAY CLEARER IMG BI PROCEDURES Final Result documented in this encounter Visit Diagnoses Not on filedocumented in this encounter Care Teams First Responder Relationship Specialty Start Date End Date Rogelio Brown MD [address] [place] [address] PCP - General Family Medicine 12/12/23 Cyndi Epperson NP [address] [place] [address] Nurse Practitioner Family Medicine 12/12/23 documented as of this encounter
--- OUTSIDE RECORDS SUMMARY | 2024-11-28 15:34 | XMS_ITS | Encounter Summary ---
Author Organization [facility] Address [address] [place] [address] Care Team Providers Care Jacquard Loom Heddles Tier Name Role Phone Rogelio Brown MD Primary Care Provider [phone] Cyndi Epperson NP Unavailable [phone] Encounter Details Date Type Department Care Team (Late st Contact Info) Description 12/16/2023 Clinisync Result Encounter [facility] External Department Unsolicited Provider, Generic External Data Social History Tobacco Use Types Packs/Day Years [...] Procedure Name Priority Date/Time Associated Diagnosis Comments US RIGHT UPPER QUADRANT 12/16/2023 3:43 PM EDT documented in this encounter Results * US RIGHT UPPER QUADRANT (12/16/2023 3:43 PM EDT) Anatomical Region Laterality Modality Other 12/16/2023 3:43 PM EDT Narrative 12/19/2023 8:51 AM EDT [facility] [address] [place] [address] Ultrasound Report Signed Patient: LORA ULLOA MR#: [id number] : 1980 Acct:[id number] Age/Sex: 43 / F ADM Date: 12/16/23 Loc: US Attending Dr: Mayuri Diaz M.D. Ordering Physician: Mayuri Diaz Date of Service: 12/16/23 Procedure(s): US right upper quadrant Accession Number(s): [id number] cc: Cyndi Epperson NP; Mayuri Diaz [facility] [place] [address] Patient Name: LORA ULLOA MRN: [facility]:[id number] date: 1980 Sex: F Assigned Patient Location: US Current Patient Location: US Accession/Order Number: [id number] Exam Date: 12/16/2023 14:05 Report Date: 12/16/2023 15:43 At the request of: MAYURI DIAZ Procedure: US right upper quadrant EXAMINATION: US right upper quadrant HISTORY: Abdominal Pain, Hepatosplenomegaly COMPARISON: CT abdomen pelvis 12/15/2023 TECHNIQUE: Transabdominal evaluation of the right upper quadrant. FINDINGS: LIVER: Slightly prominent, but normal echotexture. No mass or suspicious findings. Color Doppler demonstrates patent hepatic veins. PORTAL VEIN: Duplex Doppler demonstrates normal hepatopetal flow pattern with flow velocity averaging 29 cm/s. GALLBLADDER: No visible gallstones, wall thickening, or pericholecystic free fluid. Negative sonographic Umanzor's sign. BILIARY: No abnormal dilation or stones. Common bile duct diameter is within normal limits. PANCREAS: No visible mass, abnormal atrophy, or duct dilation. KIDNEY: No hydronephrosis. 1.3 cm benign-appearing cyst. No visible mass or stones. Size: 9.8 x 4.9 x 4.1 cm US/US right upper quadrant IMPRESSION: 1. No acute or specific findings to account for patient's symptoms. 2. No suspicious abnormality of the liver. Electronically authenticated by: BURAK NIELSEN Date: 12/16/2023 15:43 Dictated By: Burak Nielsen M.D. Signed By: 12/19/23 0851 DD/ 1543 TD/TT: Ski Lift Attendant: Procedure Note Radiology, Radiologist, MD - 12/19/2023 [facility] [place] [id number] Ultrasound Report Signed Patient: LORA ULLOA LMR#: [id number] : 1980Acct:[id number] Age/Sex: 43 / FADM Date: 12/16/23 Loc: US Attending Dr: Mayuri Diaz M.D. Ordering Physician: Mayuri Diaz Date of Service: 12/16/23 Procedure(s): US right upper quadrant Accession Number(s): [id number] cc: Cyndi Epperson NP; Mayuri Diaz [place] [address] Patient Name: LORA ULLOA MRN: [id number] date: 1980 Sex: F Assigned Patient Location: US Current Patient Location: US Accession/Order Number: [id number] Exam Date: 12/16/2023 14:05 Report Date: 12/16/2023 15:43 At the request of: MAYURI DIAZ Procedure: US right upper quadrant EXAMINATION: US right upper quadrant HISTORY: Abdominal Pain, Hepatosplenomegaly COMPARISON: CT abdomen pelvis 12/15/2023 TECHNIQUE: Transabdominal evaluation of the right upper quadrant. FINDINGS: LIVER: Slightly prominent, but normal echotexture. No mass or suspicious findings. Color Doppler demonstrates patent hepatic veins. PORTAL VEIN: Duplex Doppler demonstrates normal hepatopetal flow patternwith flow velocity averaging 29 cm/s. GALLBLADDER: No visible gallstones, wall thickening, or pericholecysticfree fluid. Negative sonographic Umanzor's sign. BILIARY: No abnormal dilation or stones. Common bile duct diameter iswithin normal limits. PANCREAS: No visible mass, abnormal atrophy, or duct dilation. KIDNEY: No hydronephrosis. 1.3 cm benign-appearing cyst. No visible massor stones. Size: 9.8 x 4.9 x 4.1 cm US/US right upper quadrant IMPRESSION: 1. No acute or specific findings to account for patient's symptoms. 2. No suspicious abnormality of the liver. Electronically authenticated by: BURAK NIELSEN Date: 12/16/2023 15:43 Dictated By: Burak Nielsen M.D. Signed By:12/19/23 0851 DD/ 1543 TD/TT: Ski Lift Attendant: us Generic External Data Provider [facility] Final Result documented in this encounter Visit Diagnoses Not on filedocumented in this encounter Care Teams Jacquard Loom Heddles Tier Relationship Specialty Start Date End Date Rogelio Brown MD [address] [place] [address] PCP - General Family Medicine 12/12/23 Cyndi Epperson NP [address] [place] [address] Nurse Practitioner Family Medicine 12/12/23 documented as of this encounter
--- OUTSIDE RECORDS SUMMARY | 2024-11-28 15:34 | XMS_ITS | Encounter Summary ---
Author Organization [facility] Address [address] [place] [address] Care Team Providers Care Sulfuric Acid Plant Operator Name Role Phone Rogelio Brown MD Primary Care Provider Cyndi Epperson NP Unavailable [phone] Encounter Details Date Type Department Care Team ([facility] st Contact Info) Description 12/16/2023 Orders Only [facility] [address] [place] [address] Cyndi Epperson NP [address] [place] [address] Social History Tobacco Use Types Packs/Day Years [...] Procedure Name Priority Date/Time Associated Diagnosis Comments ELECTROCARDIOGRAM REPORT Routine 024 9:55 AM EDT documented in this encounter Results * Electrocardiogram Report (12/15/2023 9:55 AM EDT) us Cyndi Epperson NP IN CLINIC/BEDSIDE ORDERABLES Fi nal Result documented in this encounter Visit Diagnoses Not on filedocumented in this encounter Care Teams Sulfuric Acid Plant Operator Relationship Specialty Start Date End Date Rogelio Brown MD [address] [place] [address] PCP - General Family Medicine 12/12/23 Cyndi Epperson NP [address] [place] [address] Nurse Practitioner Family Medicine 12/12/23 documented as of this encounter
--- OUTSIDE RECORDS SUMMARY | 2024-11-28 15:34 | XMS_ITS | Encounter Summary ---
Author Organization [facility] Address [address] [place] [address] Care Team Providers Care Safety Investigator Name Role Phone Rogelio Brown MD Primary Care Provider [phone] Cyndi Epperson NP Unavailable [phone] Encounter Details Date Type Department Care Team (Late st Contact Info) Description 01/10/2024 Clinisync Result Encounter [facility] External Department Unsolicited Cyndi Epperson, SURINDER [address] [place] [address] Social History Tobacco Use Types Packs/Day Years [...] Procedure Name Priority Date/Time Associated Diagnosis Comments NM HEPATOBILIARY SCAN W PHARMACOLOGICAL INTERVENTION 01/10/2024 3:30 PM EDT documented in this encounter Results * NM HEPATOBILIARY SCAN W PHARMACOLOGICAL INTERVENTION (01/10/2024 3:30 PM EDT) Anatomical Region Laterality Modality Radiographic Toña ging 01/10/2024 3:30 PM EDT Narrative 01/10/2024 3:33 [place] [address] Nuclear Medicine Report Signed Patient: LORA MARTINS MR#: [id number] : 1980 Acct:[id number] Age/Sex: 43 / F ADM Date: 01/05/24 Loc: NM Attending Dr: Cyndi Epperson METAL BED ASSEMBLER Ordering Physician: Cyndi Epperson NP Date of Service: 01/05/24 Procedure(s): CA hepatobiliary w pharm Accession Number(s): [id number] cc: Cyndi Epperson NP [place] [address] Patient Name: LORA MARTINS MRN: [id number] date: 1980 Sex: F Assigned Patient Location: CA Current Patient Location: CA Accession/Order Number: [id number] Exam Date: 01/05/2024 06:15 Report Date: 01/10/2024 15:30 At the request of: CYNDI EPPERSON Procedure: CA hepatobiliary w pharm EXAMINATION: CA hepatobiliary w pharm HISTORY: RIGHT UPPER QUADRANT PAIN COMPARISON: Ultrasound right upper quadrant 12/16/2023 TECHNIQUE: Radionuclide hepatobiliary imaging was performed after intravenous injection of 4.9 mCi Tc-99m JULIUS derivative with sequential acquisitions every 1 minute for one hour. Hepatobiliary imaging with gallbladder ejection fraction analysis was then performed with sequential imaging every 1 minute for 60 minutes following ingestion of 8 oz. Ensure Plus. FINDINGS: LIVER: Normal, prompt and uniform radiotracer uptake and clearing. BILIARY DUCTS: Normal radioisotopic biliary excretion. GALLBLADDER: Normal with no evidence of cystic duct obstruction. INTESTINE: Normal with no evidence of common biliary ductal obstruction. EJECTION FRACTION: 89 % within 60 minutes. (Normal EF > 38%). OTHER: Negative. CA/CA hepatobiliary w pharm IMPRESSION: 1. Normal nuclear medicine HIDA scan. Electronically authenticated by: BURAK NIELSEN Date: 01/10/2024 15:30 Dictated By: Burak Nielsen M.D. Signed By: 01/10/24 1533 DD/ 1530 TD/TT: Stem Teacher: Procedure Note Radiology, Radiologist, MD - 01/10/2024 [place] [address] Nuclear Medicine Report Signed Patient: LORA MARTINS LMR#: [id number] : 1980Acct:[id number] Age/Sex: 43 / FADM Date: 01/05/24 Loc: NM Attending Dr: Cyndi Epperson NP Ordering Physician: Cyndi Epperson NP Date of Service: 01/05/24 Procedure(s): CA hepatobiliary w pharm Accession Number(s): [id number] cc: Cyndi Epperson NP [place] [address] Patient Name: LORA MARTINS MRN: [id number] date: 1980 Sex: F Assigned Patient Location: CA Current Patient Location: CA Accession/Order Number: [id number] Exam Date: 01/05/2024 06:15 Report Date: 01/10/2024 15:30 At the request of: CYNDI EPPERSON Procedure: CA hepatobiliary w pharm EXAMINATION: CA hepatobiliary w pharm HISTORY: RIGHT UPPER QUADRANT PAIN COMPARISON: Ultrasound right upper quadrant 12/16/2023 TECHNIQUE: Radionuclide hepatobiliary imaging was performed afterintravenous injection of 4.9 mCi Tc-99m JULIUS derivative with sequential acquisitionsevery 1 minute for one hour. Hepatobiliary imaging with gallbladder ejectionfraction analysis was then performed with sequential imaging every 1 minute for 60 minutes following ingestion of 8 oz. Ensure Plus. FINDINGS: LIVER: Normal, prompt and uniform radiotracer uptake and clearing. BILIARY DUCTS: Normal radioisotopic biliary excretion. GALLBLADDER: Normal with no evidence of cystic duct obstruction. INTESTINE: Normal with no evidence of common biliary ductal obstruction. EJECTION FRACTION: 89 % within 60 minutes. (Normal EF > 38%). OTHER: Negative. NM/CA hepatobiliary w pharm IMPRESSION: 1. Normal nuclear medicine HIDA scan. Electronically authenticated by: BURAK NIELSEN Date: 01/10/2024 15:30 Dictated By: Burak Nielsen M.D. Signed By:01/10/24 1533 DD/ 1530 TD/TT: Stem Teacher: us Cyndi Epperson NP IMG XR PROCEDURES Final Result documented in this encounter Visit Diagnoses Not on filedocumented in this encounter Care Teams Safety Investigator Relationship Specialty Start Date End Date Rogelio Brown MD [address] [place] [address] PCP - General Family Medicine 12/12/23 Cyndi Epperson NP [address] [place] [address] Nurse Practitioner Family Medicine 12/12/23 documented as of this encounter
--- OUTSIDE RECORDS SUMMARY | 2024-11-28 15:34 | XMS_ITS | Encounter Summary ---
Author Organization [facility] Address [address] [place] [facility] [place] [address] Care Team Providers Care Ham Clerk Name Role Phone Rogelio Brown MD Primary Care Provider Cyndi Epperson NP Unavailable [phone] Encounter Details Date Type Department Care Team ([facility] st Contact Info) Description 01/10/2024 Orders Only [facility] [address] [place] [address] Cyndi Epperson NP [address] [place] [address] Social History Tobacco Use Types Packs/Day Years [...] Date/Time Associated Diagnosis Comments SCANNED LABS Routine 01/10/2024 12:06 PM EDT documented in this encounter Results * SCANNED LABS (01/10/2024 12:06 PM EDT) us Cyndi Aichholz DIRECTOR RECREATION LAB CHG PERFORMABLES Final Resu lt documented in this encounter Visit Diagnoses Not on filedocumented in this encounter Care Teams Ham Clerk Relationship Specialty Start Date End Date Rogelio Brown MD [address] [place] [address] PCP - General Family Medicine 12/12/23 Cyndi Epperson NP [address] [place] [address] Nurse Practitioner Family Medicine 12/12/23 documented as of this encounter
--- OUTSIDE RECORDS SUMMARY | 2024-11-28 15:34 | XMS_ITS | Encounter Summary ---
Author Organization [facility] Address [address] [place] [address] Care Team Providers Care Mathematics Education Professor Name Role Phone Rogelio Brown MD Primary Care Provider [phone] Cyndi Epperson NP Unavailable [phone] Encounter Details Date Type Department Care Team (Late st Contact Info) Description 02/10/2024 Orders Only [facility] [address] [place] [address] Cyndi Epperson NP [address] [place] [address] Social History Tobacco Use Types Packs/Day Years [...] Name Priority Date/Time Associated Diagnosis Comments NM GASTRIC EMPTYING SOLID Routine 02/07/2024 9:25 AM EDT documented in this encounter Results * NM gastric emptying solid (02/07/2024 9:25 AM EDT) Anatomical Region Laterality Modality Body Nuclear Medicine Cyndi Epperson LINING LAYER IMG NM PROCEDURES Final Result documented in this encounter Visit Diagnoses Not on filedocumented in this encounter Care Teams Mathematics Education Professor Relationship Specialty Start Date End Date Rogelio Brown MD [address] [place] [address] PCP - General Family Medicine 12/12/23 Cyndi Epperson NP [address] [place] [address] Nurse Practitioner Family Medicine 12/12/23 documented as of this encounter
--- OUTSIDE RECORDS SUMMARY | 2024-11-28 15:34 | XMS_ITS | Encounter Summary ---
Author Organization [facility] Address [address] [place] [address] Care Team Providers Care Dean Of Chapel Name Role Phone Rogelio Brown MD Primary Care Provider Cyndi Epperson NP Unavailable [phone] Encounter Details Date Type Department Care Team ([facility] st Contact Info) Description 12/21/2023 Orders Only [facility] [address] [place] [address] Cyndi Epperson NP [address] [place] [address] Social History Tobacco Use Types Packs/Day Years [...] Procedure Name Priority Date/Time Associated Diagnosis Comments CT ABDOMEN & PELVIS W Routine 12/19/2023 9:24 AM EDT documented in this encounter Results * CT ABDOMEN & PELVIS W (12/19/2023 9:24 AM EDT) Anatomical Region Laterality Modality Radiographic Toña ging us Cyndi Epperson NP IMG XR PROCEDURES Final Result documented in this encounter Visit Diagnoses Not on filedocumented in this encounter Care Teams Dean Of Chapel Relationship Specialty Start Date End Date Rogelio Brown MD [address] [place] [address] PCP - General Family Medicine 12/12/23 Cyndi Epperson NP [address] [place] [address] Nurse Practitioner Family Medicine 12/12/23 documented as of this encounter
--- OUTSIDE RECORDS SUMMARY | 2024-11-28 15:34 | XMS_ITS | Clinical Summary ---
Author Organization [facility] Address [address] [facility] [address] Care Team Providers Care Pie Maker Name Role Phone Rogelio Brown MD Primary Care Provider [phone] Cyndi Epperson NP Unavailable [phone] Allergies Active Allergy Reactions Criticality Noted Date Comments Amoxicillin Hives 12/22/2023 Penicillin G Rash Low 12/22/2023 Oxycodone-Acetaminophen GI intolerance 12/22/19 24 Nausea, vomiting, and dizziness Medications ondansetron (Zofran) 4 MG tablet Take 4 mg by mouth every 8 (eight) hours if needed for nausea or vomiting 03/17/2024 Active amitriptyline (Elavil) 50 MG tablet Take 50 mg by mouth at bedtime 03/09/2024 Active dicyclomine (Bentyl) 20 MG tablet Take 20 mg by mouth every 12 (twelve) hours if needed (abd cramping) Active cyanocobalamin (Vitamin B-12) 1000 MCG tablet Take 1,000 mcg by mouth Daily Active cholecalciferol (Vitamin D-3) 25 MCG (1000 UT) tabletIndicatio ns:Vitamin D Deficiency Take 1,000 Units by mouth Daily Active omeprazole (PriLOSEC) [address] capsuleIndicati ons:Pain of upper abdomen Take 1 capsule (20 mg) by mouth in the morning and 1 capsule (20 mg) in the evening. Take before meals. 60 capsule 1 06/15/2024 Active Active Problems Problem Noted Date Diagnosed Date Family history of pancreatic cancer 03/28/2024 Gastroesophageal reflux disease 03/28/2024 Dysphagia 03/28/2024 Elevated antinuclear antibody (SERA) level 2023 Assessment & Plan (04/30/2024 9:39 AM EST): Continue with Rheumatology Since last appt I [...] my chart but did not go through Assessment & Plan (03/28/2024 12:48 PM EST): Continue with Rheumatology Chest tightness 02/22/2024 Assessment & Plan (02/22/2024 4:27 PM EDT): Reviewed CT chest and labs ?GI source, anxiety?? Encounter for screening mamm ogram for malignant neoplasm of breast 01/11/2024 Pain of upper abdomen 12/22/2023 Assessment & Plan (04/30/2024 9:40 AM EST): Cont with GI Is waiting for an [...] needs to reach out to her specialists Assessment & Plan (03/28/2024 12:55 PM EST): Cont with GI Is waiting for an [...] needs to reach out to her specialists Assessment & Plan (02/22/2024 4:25 PM EDT): Cont with GI Check amylase and lipase Fu in 4 weeks Assessment & Plan (01/11/2024 4:46 PM EDT): Cont omeprazole and anti spasmodic Has GI appt 01/19/24, Unclear etiology: I do not think all related to HH, ?IBS? 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 Enlarged liver 12/22/2023 Assessment & Plan (12/22/2023 4:56 PM EDT): No acute findings, and doubtful that this is causing her abd pain Keep GI appt for 01/02/24 Encounters Date Type Department Care Team Description 09/14/2024 Clinisync Result Encounter [facility] External Department Unsolicited Provider, Generic External Data from Last 3 Months Immunizations Immunization Administration Dates Next Due Influenza, Unspecified 06/01/2013 Influenza, seasonal, injectable 06/01/2013 Pfizer Purple Cap SARS-CoV-2 Vaccination 021,03/04/2021 Tdap 09/14/2012 Family History Medical History Relation Name Comments Diabetes Brother Sky Mental illness Brother Sky Cancer Mother Lorraine Relation Name Status Comments Brother Sky Mother Lorraine Social History Tobacco Use Types Packs/Day Years Used Date Smoking Tobacco: Former Cigarettes Q uit: 2020 Smokeless Tobacco: Never Tobacco Cessation:Counseling Given: Not Answered Alcohol Use Standard Drinks/Week Comments Not Currently 0 (1 standard drink = 0.6 oz pure alcohol) caffine: 1 cup of coffee daily [facility] of Occupat ional [facility] - Occupational Stress Questionnaire Answer Date Recorded Do you feel stress - tense, restless, nervous, or anxious, or unable to sleep at night because your mind is troubled all the time - these days? Patient declined 04/30/2024 Comments Unknown Sex and Gender Information Value Date Recorded Sex Assigned at Female 12/22/2023 8:58 AM EDT Legal Sex Female 11:21 PM EDT Gender Identity Female 12/22/2023 8:58 AM EDT Sexual Orientation Straight 12/22/2023 8: 58 AM EDT Last Filed Vital Signs Vital Sign Reading Time Taken Comments Blood Pressure 132/82 04/30/2024 9:05 AM EST Pulse 85 04/30/2024 9:05 AM EST Temperature 36.9 C (98.5 F) 04/30/2024 9:05 AM EST Respiratory Rate 18 04/30/2024 9:05 AM EST Oxygen Saturation 100% 04/30/2024 9:05 AM EST Inhaled Oxygen Concentration - - Weight 58.9 kg (129 lb 12.8 oz) 04/30/2024 9:05 AM EST Height 171.5 cm (5' 7.5 ) 04/30/2024 9:05 AM EST Body Mass Index 20.03 04/30/2024 9:05 AM EST Plan of Treatment Health Maintenance Due Date Last Done Comments CT Colonography 1978 FIT-DNA 1978 FIT 1978 FOBT 1978 Sigmoidoscopy 1978 Pap Smear 11/23/1999 HPV/Cotest 2008 Mammogram 01/29/2025 01/30/2024, 01/27/2024 Colonoscopy 01/09/2034 01/10/2024, 01/10/2024 Colorectal Cancer Screening 01/09/2034 Influenza Vaccine Discontinued 06/01/2013, 06/01/2013 Cervical Cancer Screening Discontinued Procedures Procedure Name Priority Date/Time Associated Diagnosis Comments SURGICAL PATHOLOGY EXAM Routine 09/14/2024 10:09 AM EDT BI MAMMOGRAM SCREENING TOMOSYNTHESIS BILATERAL Routine 01/30/2024 11:32 AM EDT from Last 3 Months or Most Recently Relevant to Health Maintenance Results * SURGICAL PATHOLOGY EXAM (09/14/2024 10:09 AM EDT) Pathologist [facility] Pathology report.total SURG SEE COMMENT [place] [id number] Surgical Pathology Case: [id number] SURG Authorizing Provider: Yasir Pena MD Collected: 09/14/2024 1009 SURG Ordering Location: [facility] Received: 09/14/2024 1107 [place] [id number] Pathologist: Ciaran Nieves MD PhD [place] [id number] Specimens: A) - DUODENUM SECOND PART BIOPSY, COLD BIOPSY SURG B) - STOMACH ANTRUM BIOPSY, COLD BIOPSY [address] SURG Path report.final diagnosis SURG SEE COMMENT SURG A. Duodenum, Second Part, Biopsy: SURG -- Duodenal mucosa with focal gastric mucin-cell metaplasia. No intraepithelial lymphocytosis. Normal villous architecture. [facility] B. Stomach, Antrum, Biopsy: SURG -- Normal antral and oxyntic mucosa. No Helicobacter organisms are identified. [place] [id number] at 1020 EDT [facility] Laboratory comment [place] [id number] By the signature on this report, the individual or group listed as making the Final Interpretation/Diag nosis certifies that they have reviewed this case. [facility] Path report.relevant Hx SURG SEE COMMENT SURG R10.13 - Abdominal pain, acute, epigastric [ICD-10-CM] [facility] A) rule out celiac SURG1 B) rule out H.pylori [address] SURG Path report.gross observation SURG SEE COMMENT SURG A: Received in formalin, labeled with the patient's name and hospital number and specimen 1 cold biopsy , are multiple fragments of castelan, soft tissue aggregating to 0.9 x 0.3 x 0.3 cm. The specimen is submitted in toto in one cassette. SURG1 [facility] SURG1 B: Received in formalin, labeled with the patient's name and hospital number and specimen 2 cold biopsy , are multiple fragments of castelan, soft tissue aggregating to 0.9 x 0.6 x 0.3 cm. The specimen is submitted in toto in one cassette. SURG1 [facility] Tissue 09/14/2024 10:0 9 AM EDT 09/21/2024 8:54 AM EDT Narrative [facility] - 09/24/2024 10:20 AM EDT Original Ordering Provider: YASIR PENA Generic External Data Provider [facility] inal Result [facility] * Bilateral screening mammogram with tomosynthesis (01/30/2024 11:32 AM EDT) Anatomical Region Laterality Modality Breast Bilateral Mammography Cyndi Epperson NP IMG BI PROCEDURES Final Result from Last 3 Months or Most Recently Relevant to Health Maintenance Insurance [employer] Care Teams Pie Maker Relationship Specialty Start Date End Date Rogelio Brown MD [address] [place] [id number] PCP - General Family Medicine 12/12/23 Cyndi Epperson NP [address] [place] [address] Nurse Practitioner Family Medicine 12/12/23
--- OUTSIDE RECORDS SUMMARY | 2024-11-28 15:34 | XMS_ITS | Encounter Summary ---
Author Organization [facility] Address [address] [facility] [place] [address] Care Team Providers Care Field Artillery Operations Man Name Role Phone Rogelio Brown MD Primary Care Provider Cyndi Epperson NP Unavailable [phone] Encounter Details Date Type Department Care Team ([facility] st Contact Info) Description 02/23/2024 Orders Only [facility] [address] [place] [address] Cyndi Epperson NP [address] [place] [address] Social History Tobacco Use Types Packs/Day Years [...] Date/Time Associated Diagnosis Comments SC[facility]ED [facility]S Routine 02/23/2024 7:58 AM EDT documented in this encounter Results * [facility] (02/23/2024 7:58 AM EDT) us Cyndi Aichholz [employer] DES[employer] [facility] CHG PERFORMABLES Final Resu lt documented in this encounter Visit Diagnoses Not on filedocumented in this encounter Care Teams Field Artillery Operations Man Relationship Specialty Start Date End Date Rogelio Brown MD [address] [place] [address] PCP - General Family Medicine 12/12/23 Cyndi Epperson NP [address] [place] [id number] Nurse Practitioner Family Medicine 12/12/23 documented as of this encounter
--- OUTSIDE RECORDS SUMMARY | 2024-11-28 15:34 | XMS_ITS | Clinical Summary ---
Author Organization [facility] Address [address] [place] [id number] Care Team Providers Care Industrial Paramedic Name Role Phone Cyndi Epperson CNP Primary Care Provider Social History Tobacco Use Types Packs/Day Years Used Date Smoking Tobacco: Never Assessed Comments Unknown Sex and Gender Information Value Date Recorded Sex Assigned at Not on file Legal Sex Female 6:43 AM EDT Gender Identity Not on file Sexual Orientation Not on file Plan of Treatment Health Maintenance Due Date Last Done Comments Anxiety Screening 1996 Depression Screening 1996 HIV Screening 1996 Hepatitis C Screening 1996 Hepatitis B Vaccine (1 of 3 - 19+ 3-dose series) 1997 Cervical Cancer Screening 11/23/1999 DTaP,Tdap,Td Vaccine (2 - Td or Tdap) 09/14/202201/2013 CT Colonography 11/23/2023 Cologuard (FIT-DNA) 11/23/2023 Colonoscopy 11/23/2023 Colorectal Cancer Screening 11/23/2023 Diabetes Screening 11/23/2023 Fecal Occult Blood 11/23/2023 Lipid Screening 11/23/2023 Sigmoidoscopy 11/23/2023 Covid-19 Vaccine ( season) 2024, 03/04/2021 Influenza Vaccine (#1) 2025 06/01/2013 Mammogram Screening 01/29/2025 01/30/2024 Care Teams Industrial Paramedic Relationship Specialty Start Date End Date Cyndi Epperson CNP [address] [place] [address] PCP - General Family Medicine 03/02/24
[2024-11-28 16:06] LABS: Hematocrit 35.2 % (36.0-48.0); Hemoglobin 12.2 g/dL (12.0-16.0); Immature Granulocytes Abs Auto 0.02 10^3/uL (0.00-0.03); Immature Granulocytes Pct Auto 0.3 % (0.0-0.5); Lymphocytes Absolute Auto 1.8 10^3/uL (1.2-3.8); Mean Corpuscular HGB Conc 34.7 g/dL (29.9-35.2); Mean Corpuscular Hemoglobin 31.8 pg (26.7-34.0); Mean Corpuscular Volume 91.7 fL (81.0-99.0); Platelet Count 156 10^3/uL (150-450); Red Blood Count 3.84 10^6/uL (4.20-5.40); White Blood Count 7.1 10^3/uL (4.0-11.0)
[2024-11-28 16:16] LABS: INR 1.06; Prothrombin Time 11.2 sec (9.0-11.6)
[2024-11-28 16:17] LABS: Alanine Aminotransferase 19 U/L (14-59); Albumin Globulin Ratio 1.5; Albumin Level 3.7 g/dL (3.4-5.0); Alkaline Phosphatase 33 U/L (46-116); Anion Gap 12.4; Aspartate Amino Transferase 13 U/L (15-37); Blood Urea Nitrogen 24.0 mg/dL (7.0-18.0); Calcium 8.9 mg/dL (8.5-10.1); Carbon Dioxide 27.9 mmol/L (21.0-32.0); Chloride 107 mmol/L (98-107); Estimated GFR (African America >60 (>=60 mL/min/1.73m^2); Estimated GFR (Non-African Ame >60 (>=60 mL/min/1.73m^2); Globulin 2.5 g/dL; Glucose 102 mg/dL (74-106); Potassium 4.3 mmol/L (3.5-5.1); Sodium 143 mmol/L (136-145); Total Protein 6.2 g/dL (6.4-8.2)
[2024-11-28] MEDS: FAMOTIDINE/PF 20 MG/2 ML VIAL IV (16:42)
[2024-11-28] MEDS: KETOROLAC TROMETHAMINE 30 MG/ML VIAL 15 MG IVP (16:42)
[2024-11-28] MEDS: 0.9 % SODIUM CHLORIDE 1,000 ML 1000 ML IV (17:00)
--- NOTE | 2024-11-28 17:49 | ED.GENADUL1 ---
HPI HPI - General Adult General Chief complaint: Upper Respiratory Infection Stated complaint: UPPER RESPIRATORY Time Seen by Provider: 11/28/24 15:26 Source: patient Mode of arrival: walk-in Limitations: no limitations History of Present Illness HPI narrative: The patient is coming to the ER with 3 days history of chest pain mostly anterior bilateral, like she mentioned that she just came from the weekend when she was spending some time in the sun, there was no history of long-term, no history of blood clots or any cardiac issues and the patient does not have any history of smoking cigarettes Patient denies any fever or chills that she did mention having some cough but nonproductive The patient denies any other concerns she did try some Tylenol ibuprofen with no effect The pain is radiating to her back sometime whenever she take a deep breath or if she change position Related Data Home Medications �Medication �Instructions �Recorded �Confirmed omeprazole 20 mg capsule,delayed 20 mg PO DAILY 12/30/23 02/21/24 release ondansetron 4 mg disintegrating 4 mg PO Q8H PRN nausea and vomiting 12/30/23 02/21/24 tablet amitriptyline 25 mg tablet mg 02/21/24 dicyclomine 10 mg capsule 10 mg PO TID 03/06/24 03/06/24 ondansetron HCl 4 mg tablet 4 mg PO Q8H PRN nausea and vomiting 03/06/24 03/06/24 Previous Rx's �Medication �Instructions �Recorded sucralfate 1 gram tablet (Carafate) 1 g PO Q6H PRN abdominal pain #12 02/21/24 tabs meloxicam 15 mg tablet 15 mg PO DAILY PRN pain #7 tabs 11/28/24 orphenadrine citrate 100 mg 100 mg PO BID PRN muscle spasm #10 11/28/24 tablet,extended release tabs Allergies Allergy/AdvReac Type Severity Reaction Status Date / Time amoxicillin Allergy Intermediate Hives Verified 11/28/24 15:35 penicillin G Allergy Unknown Rash Verified 11/28/24 15:35 Opioids - Morphine Analogues AdvReac Intermediate Vomiting Verified 11/28/24 15:35 Opioid HPI Opioid Management Most Recent Opioid Data: Last Pain Scale 8 Today, 16:42 Last MAR Pain Assessment Today, 16:42 Ur Phencyclidine Scrn, (NEGATIVE) Negative 02/21/24, 17:05 Review of Systems ROS Status of ROS 10 or more systems reviewed and unremarkable except as noted in history and below [facility] Medical History (Updated 11/28/24 @ 18:08 by Tiffanie Wilson MD) Dysphagia �R13.10 - Dysphagia, unspecified (ICD-10) GERD (gastroesophageal reflux disease) �K21.9 - Gastro-esophageal reflux disease without esophagitis (ICD-10) Hepatomegaly �R16.0 - Hepatomegaly, not elsewhere classified (ICD-10) Abdominal pain �R10.9 - Unspecified abdominal pain (ICD-10) Surgical History History of salpingectomy �Z90.79 - Acquired absence of other genital organ(s) (ICD-10) History of tonsillectomy �Z90.89 - Acquired absence of other organs (ICD-10) H/O: hysterectomy �Z90.710 - Acquired absence of both cervix and uterus (ICD-10) Family History (Updated 12/30/23 @ 11:10 by Tanya Bryant) Mother Family history of cancer Brother Family history of diabetes mellitus FH: mental illness Social History Within the past year, how often did you have a drink containing alcohol: monthly or less Smoking status: Former smoker Non-prescribed substance use: denies use Previous occupational history: [employer] Highest level of school completed/degree received: Associate degree: occupational, technical, vocational program Little interest or pleasure in doing things: not at all Feeling down, depressed, or hopeless: not at all Exam Narrative Exam Narrative: Nurses notes and vital signs reviewed and patient is not hypoxic. General: Well-appearing and in no apparent distress. Skin: Warm, dry, no pallor noted. No rash. Head: Normocephalic, atraumatic. Neck: Supple, non-tender. Cardiovascular: Regular Rate and Rhythm without murmur, gallop or rub. Respiratory: No accessory muscle use or respiratory distress. Lungs are clear to auscultation, no wheezing, rales or rhonchi Chest Wall: no tenderness Back: No midline thoracic or lumbar vertebral tenderness. No CVA tenderness Musculoskeletal: normal ROM, no calf or popliteal tenderness, no lower extremity edema/swelling GI: Abdomen is soft, non-distended. Normal bowel sounds. No masses appreciated. No tenderness to palpation. No rebound, guarding, or rigidity noted. Neurological: A&O x4. No cranial nerve dysfunction observed. Constitutional Vital Signs, click to edit/add: Last Vital Signs Temp 98.5 F 11/28/24 15:35 Pulse 75 11/28/24 15:35 Resp 18 11/28/24 15:35 BP 130/86 11/28/24 15:35 Pulse Ox 98 11/28/24 15:35 O2 Del Method Room Air 11/28/24 15:35 Course Vital Signs Vital signs: Vital Signs Temperature 98.5 F 11/28/24 15:35 Pulse Rate 75 11/28/24 15:35 Respiratory Rate 18 11/28/24 15:35 Blood Pressure 130/86 11/28/24 15:35 Pulse Oximetry 98 11/28/24 15:35 Oxygen Delivery Method Room Air 11/28/24 15:35 Temperature 98.5 F 11/28/24 15:35 Pulse Rate 75 11/28/24 15:35 Respiratory Rate 18 11/28/24 15:35 Blood Pressure 130/86 11/28/24 15:35 Pulse Oximetry 98 11/28/24 15:35 Oxygen Delivery Method Room Air 11/28/24 15:35 Medical Decision Making MDM Narrative Medical decision making narrative: The patient EKG showing sinus rhythm with a heart rate of [address] elevation or depression Patient chest x-ray showed no acute pathology CBC and chemistry showed some elevated BUN and the patient was provided IV fluid D-dimer was negative as well as negative test Troponin is negative The patient presentation likely secondary to musculoskeletal or pleuritic chest pain she was provided with a Toradol in the ER after which she was having some improvement she was discharged home with Mobic and Norflex with instruction on hydration and rest The patient was instructed to come back to the ER in case of continuous pain The patient is to follow up with primary care physician in next 2-3 days or to return to the emergency department should any of the signs or symptoms worsen or new symptoms develop. The patient agrees with the following Diagnosis and Treatment plan and the patient will be discharged home. Lab Data Labs: Lab Results 11/28/24 Range/Units 15:57 WBC 7.1 (4.0-11.0) 10^3/uL RBC 3.84 L (4.20-5.40) 10^6/uL Hgb 12.2 (12.0-16.0) g/dL Hct 35.2 L (36.0-48.0) % MCV 91.7 (81.0-99.0) fL MCH 31.8 (26.7-34.0) pg MCHC 34.7 (29.9-35.2) g/dL RDW 12.8 (11.0-15.0) % Plt Count 156 (150-450) 10^3/uL MPV 10.7 (9.5-13.5) fL Neut % (Auto) 65.8 (43.0-75.0) % Lymph % (Auto) 25.1 (20.5-60.0) % [place] % (Auto) 6.8 (1.7-12.0) % Eos % (Auto) 1.4 (0.9-7.0) % Baso % (Auto) 0.6 (0.2-2.0) % Neut # (Auto) 4.7 (1.4-6.5) 10^3/uL Lymph # (Auto) 1.8 (1.2-3.8) 10^3/uL [place] # (Auto) 0.5 (0.3-0.8) 10^3/uL Eos # (Auto) 0.1 (0.0-0.7) 10^3/uL Baso # (Auto) 0.0 (0.0-0.1) 10^3/uL Abs Immat Gran (auto) 0.02 (0.00-0.03) 10^3/uL Imm/Tot Granulo (auto) 0.3 (0.0-0.5) % PT 11.2 (9.0-11.6) sec INR 1.06 D-Dimer 0.23 (<=0.59) mg/L FEU Sodium 143 (136-145) mmol/L Potassium 4.3 (3.5-5.1) mmol/L Chloride 107 (98-107) mmol/L Carbon Dioxide 27.9 (21.0-32.0) mmol/L Anion Gap 12.4 BUN 24.0 H (7.0-18.0) mg/dL Creatinine 0.77 (0.55-1.02) mg/dL Est GFR ( Amer) >60 (>=60 mL/min/1.73m^2) Est GFR (Non-Af Amer) >60 (>=60 mL/min/1.73m^2) BUN/Creatinine Ratio 31.2 Glucose 102 (74-106) mg/dL Calcium 8.9 (8.5-10.1) mg/dL Total Bilirubin 0.5 (0.2-1.0) mg/dL AST 13 L (15-37) U/L ALT 19 (14-59) U/L Alkaline Phosphatase 33 L (46-116) U/L Troponin I High Sens 4.6 (4.0-51.3) pg/mL Total Protein 6.2 L (6.4-8.2) g/dL Albumin 3.7 (3.4-5.0) g/dL Globulin 2.5 g/dL Albumin/Globulin Ratio 1.5 Serum HCG, Qual Negative (NEGATIVE) Discharge Plan Discharge Chief Complaint: Upper Respiratory Infection Clinical Impression: Atypical chest pain Patient Disposition: Home, Self-Care Time of Disposition Decision: 18:08 Condition: Good Prescriptions / Home Meds: New meloxicam 15 mg tablet 15 mg PO DAILY PRN (Reason: pain) Qty: 7 0RF orphenadrine citrate 100 mg tablet extended release 100 mg PO BID PRN (Reason: muscle spasm) Qty: 10 0RF No Action amitriptyline 25 mg tablet sucralfate [Carafate] 1 gram tablet 1 g PO Q6H PRN (Reason: abdominal pain) Qty: 12 0RF omeprazole 20 mg capsule,delayed release(DR/EC) 20 mg PO DAILY ondansetron 4 mg tablet,disintegrating 4 mg PO Q8H PRN (Reason: nausea and vomiting) dicyclomine 10 mg capsule 10 mg PO TID ondansetron HCl 4 mg tablet 4 mg PO Q8H PRN (Reason: nausea and vomiting) Print Language: Urdu Instructions: Chest Wall Pain (ED) Referrals: Cyndi Epperson SUBSTATION MECHANIC [Primary Care Provider, Family Practice] - 1 week
== END 2024-11-28 18:23 | disposition home or self-care (01) ==
PROVIDERS: Emergency Provider Emergency Medicine; PCP Nurse Practitioner
DX: R07.89 Other chest pain (principal); Z90.710 Acquired absence of both cervix and uterus; Z90.79 Acquired absence of other genital organ(s); Z87.891 Personal history of nicotine dependence
CPT/HCPCS: 36415; 71045; 80053; 84484; 84703; 85025; 85378; 85610; 93005; 96374; 96375; 99285; J1885; J3490

== ENCOUNTER 2025-04-19 07:57 | Outpatient (OUT) | payer OTHER, SELFPAY ==
--- OUTSIDE RECORDS SUMMARY | 2025-04-19 08:04 | XMS_ITS | CCD ---
Author Organization [facility] CliniSyct Care Team Providers Care Lathe Scalper Operator Name Role Phone AICHHOLZ, AUTOMATION ENGINEERING MANAGER CYNDI Consulting Unavailable AICHHOLZ, AUTOMATION ENGINEERING MANAGER CYNDI Primary Care Unavailable AICHHOLZ, AUTOMATION ENGINEERING MANAGER CYNDI Attending Unavailable AICHHOLZ, AUTOMATION ENGINEERING MANAGER CYNDI Admitting Unavailable ROVERTO, DR RAMYA Rogers Consulting Unavailable KARASIK ., DR HDZ Consulting Unavailabl e AICHHOLZ, AUTOMATION ENGINEERING MANAGER CYNDI Primary Care Unavailable KARASIK ., DR HDZ Attending Unavailabl e KARASIK ., DR HDZ Admitting Unavailabl e PIPPA LOVING Consulting Unavaila ble NUPUR PELAYO Consulting Unavailable KARASIK ., DR HDZ Consulting Unavailabl e AICHHOLZ, AUTOMATION ENGINEERING MANAGER CYNDI Primary Care Unavailable KARASIK ., DR HDZ Attending Unavailabl e KARASIK ., DR HDZ Admitting Unavailabl e CEDENO, RAMON Consulting Unavailable AICHHOLZ, AUTOMATION ENGINEERING MANAGER CYNDI Primary Care Unavailable KARASIK ., DR HDZ Attending Unavailabl e KARASIK ., DR HDZ Admitting Unavailabl e AICHHOLZ, AUTOMATION ENGINEERING MANAGER CYNDI Primary Care Unavailable KARASIK ., DR HDZ Attending Unavailabl e KARASIK ., DR HDZ Admitting Unavailabl e AICHHOLZ, AUTOMATION ENGINEERING MANAGER CYNDI Primary Care Unavailable KARASIK ., DR HDZ Attending Unavailabl e KARASIK ., DR HDZ Admitting Unavailabl e KARASIK ., DR HDZ Consulting Unavailabl e AICHHOLZ, AUTOMATION ENGINEERING MANAGER CYNDI Primary Care Unavailable KARASIK ., DR HDZ Attending Unavailabl e KARASIK ., DR HDZ Admitting Unavailabl e KARASIK ., DR HDZ Consulting Unavailabl e ESTEPHANIA COWAN Admitting Unavailable AICHHOLZ, AUTOMATION ENGINEERING MANAGER CYNDI Primary Care Unavailable KARASIK ., DR HDZ Attending Unavailabl e TED, DR MIKE Flores Consulting Unavailable AICHHOLZ, AUTOMATION ENGINEERING MANAGER CYNDI Primary Care Unavailable AICHHOLZ, AUTOMATION ENGINEERING MANAGER CYNDI Attending Unavailable AICHHOLZ, AUTOMATION ENGINEERING MANAGER CYNDI Admitting Unavailable AICHHOLZ, AUTOMATION ENGINEERING MANAGER CYNDI Consulting Unavailable AICHHOLZ, AUTOMATION ENGINEERING MANAGER CYNDI Consulting Unavailable AICHHOLZ, AUTOMATION ENGINEERING MANAGER CYNDI Primary Care Unavailable AICHHOLZ, AUTOMATION ENGINEERING MANAGER CYNDI Attending Unavailable AICHHOLZ, AUTOMATION ENGINEERING MANAGER CYNDI Admitting Unavailable AICHHOLZ, AUTOMATION ENGINEERING MANAGER CYNDI Consulting Unavailable AICHHOLZ, AUTOMATION ENGINEERING MANAGER CYNDI Primary Care Unavailable AICHHOLZ, AUTOMATION ENGINEERING MANAGER CYNDI Attending Unavailable AICHHOLZ, AUTOMATION ENGINEERING MANAGER CYNDI Admitting Unavailable AICHHOLZ, AUTOMATION ENGINEERING MANAGER CYNDI Consulting Unavailable AICHHOLZ, AUTOMATION ENGINEERING MANAGER CYNDI Primary Care Unavailable AICHHOLZ, AUTOMATION ENGINEERING MANAGER CYNDI Attending Unavailable AICHHOLZ, AUTOMATION ENGINEERING MANAGER CYNDI Admitting Unavailable KARASIK ., DR HDZ Consulting Unavailabl e AICHHOLZ, AUTOMATION ENGINEERING MANAGER CYNDI Primary Care Unavailable KARASIK ., DR HDZ Attending Unavailabl e KARASIK ., DR HDZ Admitting Unavailabl e KARASIK ., DR HDZ Consulting Unavailabl e AICHHOLZ, AUTOMATION ENGINEERING MANAGER CYNDI Primary Care Unavailable KARASIK ., DR HDZ Attending Unavailabl e KARASIK ., DR HDZ Admitting Unavailabl e ZAHRA HEATHER Consulting Unavailable KARASIK ., DR HDZ Procedure Practitioner Pina vailable ADINA YIP Consulting Unavailable AICHHOLZ, AUTOMATION ENGINEERING MANAGER CYNDI Primary Care Unavailable KARASIK ., DR HDZ Attending Unavailabl e KARASIK ., DR HDZ Admitting Unavailabl e AICHHOLZ, CYNDI J Primary Care Physician Reza Bedoya Attending Unavailable DO Samuel Mcdermott Attending Provider Reza Bedoya Attending Unavailable Booker Shelley Attending UnavailBooker Bae Attending UnavailRogelio Duvall MD Primary Care Provider Aicbeatriz BRAKE ENGINEER, Cyndi Unavailable SELF Referring Unavailable AICHHOLZ, CYNDI JEN Primary Care Unavailable JONATHAN RUBI Attending Unavailable Samuel Mcdermott DO Attending Provider Weston Isabel MD Attending Provider CYNDI EPPERSON Attending Unavailable SAMUEL MCDERMOTT Attending Unavailable AICHHOLZCYNDI Attending Unavailable AICHHOLZ, CYDNI Attending Unavailable AICHHOLZ, CYNDI Attending Unavailable AICHHOLZ, CYNDI Attending Unavailable Unavailable Primary Care Provider Unavailabl e Aichholz TUFTING MACHINE OPERATOR-AUTOMATION ENGINEERING MANAGER, Cyndi Jen Primary Care Provider Aichholz TUFTING MACHINE OPERATOR-AUTOMATION ENGINEERING MANAGER, Cyndi Li Primary Care Provider BRISSA RAIN Attending Unavailable BRISSA RAIN Referring Unavailable AICHHOLAngela, CYNDI LI Primary Care Unavailable ANGELESAIIKE, VEE Attending Unavailable PARK, WOOSUP M Referring Unavailable AICHHOLZ, CYNDI LI Primary Care Unavailable ADLOKESH HERNADEZ M Referring Unavailable AICHHOLAngela, CYNDI LI Primary Care Unavailable BISI PENA Attending Unavailable BISI PENA Referring Unavailable AICHHOLAngela, CYNDI JEN Primary Care Unavailable Hans Latham Attending Unavailable Booker Shelley Attending Unavaila ble Sarmini, Booker Talal Referring Unavaila ble Sarmini, Booker Talal Admitting Unavaila ble Sarmini, Booker Talal Attending Unavaila ble Sarmini, Booker Talal Referring Unavaila ble Sarmini, Booker Talal Admitting Unavaila ble Hans Latham Attending Unavailable Daphney, Booker Talal Attending Unavaila ble Sarmini, Booker Talal Attending Unavaila ble Sarmineryn, Booker Talal Attending Unavaila Cyndi Gregory Primary Care Provider Cyndi Epperson Attending Provider [phone] PARK, WOOSUP M Referring Unavailable PARK, WOOSUP M Referring Unavailable PARK, WOOSUP M Referring Unavailable PARK, WOOSUP M Referring Unavailable PARK, WOOSUP M Referring Unavailable PARK, WOOSUP M Admitting Unavailable PARK, WOOSUP M Attending Unavailable AICHCYNDI GRACE Primary Care Unavailable AICHHOLAngela, CYNDI LI Primary Care Unavailable NANCY, VEE Attending Unavailable AICBEATRIZ, CYNDI LI Primary Care Unavailable PARK, WOOSUP M Attending Unavailable AICHHOLAngela, CYNDI LI Primary Care Unavailable PARK, WOOSUP M Attending Unavailable AICHHOLAngela, CYNDI JEN Primary Care Unavailable BRISSA RAIN Attending Unavailable BRISSA RAIN Attending Unavailable CYNDI EPPERSON Primary Care Unavailable HOSSEIN POTTER Attending Unavailable CYNDI EPPERSON Primary Care Unavailable Rogelio Brown MD Primary Care Provider Cyndi Epperson NP Unavailable Zeenat BRAKE ENGINEER-CCyndi Primary Care Provider Zeenat BRAKE ENGINEER-CCyndi Attending Provider [phone] Cyndi Epperson Admitting Unavailable Cyndi Epperson Attending Unavailable Weston Isabel Admitting Unavailable Weston Isabel Attending Unavailable Weston Isabel Attending Unavailable Weston Isabel Admitting Unavailable Allergies Allergy ClassificationReported Allergen(s)Allergy TypeDate of OnsetReaction(s) Facility (8 sources)Penicillins; Translations: [PENICILLINS]Drug allergy (disorder) 75-91-2026Zbhpofaffzw, Hives, Rash, UnknownThe [facility] (1 source)Misc-Other; Translations: [Misc-Other]Propensity to adverse reactions (disorder)28-26-1881Tvu [facility] (20 sources)Amoxicillin; Translations: [amoxicillin]Drug Csokega55-26-6874XatplSelect [facility] (20 sources)Acetaminophen / oxyCODONE; Translations: [OXYCODONE-ACETAMINOPHEN] Drug Yiqyqeb68-04-8137VM [facility] (20 sources)Penicillin GDrug Jrzotmt53-86-0292XqjhCUHR Healthcare (18 sources)Morphinan opioid; Translations: [OPIOIDS - MORPHINE ANALOGUES]Drug Skzsrjnercd09-65-1958Vseoaj/vomitingK[facility] (2 sources)PenicillinsDrug Nrerweb42-85-3529Lhdyyeblcvi, Hives, Rash, Unknown [facility] Work Phone: (10 sources)PenicillinsDrug Lvblwpg57-73-7404Wxqwnalxbdf, Hives, Rash, Unknown [facility] Work Phone: (14 sources)Pilocarpine; Translations: [PILOCARPINE]Drug Qrbjmvs60-76-7346 Nausea/vomitingUnMag[facility] (1 source)Acetaminophen / oxyCODONE; Translations: [acetaminophen-oxycodone]Drug Qbzxjcc64-16-0932Bkorcpzetdpramcz symptoms (finding)[facility] HealthComment on above:Outside Source Comment: Nausea, vomiting, and dizziness (1 source)Acetaminophen / oxyCODONE; Translations: [acetaminophen-oxycodone]Drug Uwridej33-97-5320BenocfGe[facility]al [facility] (4 sources)Acetaminophen; Translations: [acetaminophen]Drug Xxnfopk56-46-0797 [facility]etW[facility] (4 sources)oxyCODONE; Translations: [oxycodone]Drug Nvwrhqo33-03-4131 [facility]psOhio[facility] (1 source)ALLERGIES NOT ON FILE; Translations: [ALLERGIES NOT ON FILE]Propensity to adverse reactions (disorder)[facility] Repository (1 source)AmoxicillinDrug Xwohasb86-34-8447FskpmbsaiWadsworth-Rittman Hospital Repository (1 source)PenicillinDrug Hjbkqmz30-11-3136CasxwotjvWadsworth-Rittman Hospital Repository Medications Current Medications MedicationDrug Class(es)DatesSig (Normalized)Sig (Original)acetaminophen 325 mg oral tablet (2 sources)Start: 53-46-2624rbyc 1 tablet by mouth every six mg, oral, Every 6 hours, First dose on Tue01/29/25 at 1645, Phase II/On Unit, If ordered PRN for pain, nurse is permitted to administer this medication for higher pain scores based on patient preference? YesStart: 01-29-2025 End: 47-08-3228mqds 1000 mg intravenously every eight hours1,000 mg, intravenous, at 400 mL/hr, Administer over 15 Minutes, Every 8 hours, First dose on Tue01/29/25 at 1630, Administer 6 hours after last dose.amitriptyline hydrochloride 50 mg oral tablet (20 sources)Tricyclic AntidepressantStart: 63-78-3527mxpj 1 tablet by mouth once dailyStart: 02-10-2024 End: 70-01-6902ucma 1 tablet by mouth at bedtimeamitriptyline (Elavil) 25 MG tablet Take 25 mg by mouth at bedtime 02/10/2024 03/28/2024 Discontinued (Therapy completed)cholecalciferol 0.025 mg oral tablet (20 sources)Vitamin DStart: 38-23-8552rwfm 25 ug by mouth once daily25 mcg, oral, Daily RT, First dose on Tue01/29/25 at 1645, Phase II/On UnitStart: 32-69-9662otic 1 capsule by mouth once dailytake 1 tablet by mouth once daily cholecalciferol (Vitamin D-3) 25 MCG (1000 UT) tablet Take 1 tablet (1,000 Units) by mouth once daily. Activedicyclomine hydrochloride 10 mg oral capsule (20 sources)AnticholinergicStart: 16-79-9256taaa 1 capsule by mouth every six hours as neededStart: 86-10-2870kptn 1 tablet by mouth twice dailyStart: 01-04-2024 End: 44-42-8646rplb 1 capsule by mouth every eight hoursdicyclomine (Bentyl) 10 MG capsule Indications: Pain of upper abdomen Take 1 capsule (10 mg) by mouth every 8 (eight) hours if needed (abd cramping) 90 capsule 03/18/2024 04/17/2024 ActiveStart: 12-22-2023 End: 77-49-4147zbzn 1 tablet by mouth every six hoursdicyclomine (Bentyl) 20 MG tablet Indications: Pain of upper abdomen Take 1 tablet (20 mg) by mouthevery 6 (six) hours if needed (abd pain/cramping) for up to 10 days 40 tablet 12/22/2023 01/04/2024iscontinued (Therapy completed)Start: 12-19-2023 End: 70-70-3419hgwu 1 capsule by mouth every six hours as needed for muscle spasmsBentyl 10 mg Cap 10 mg = 1 cap(s), Oral, q6hr, PRN Spasm, X 7 day(s), # 30 cap(s), Refills(s) 0, Pharmacy: [facility]/pharmacy #[id number], 170.2, cm, 12/19/23 16:15:00 EDT, Height/Length Dosing, 57.8, kg, 12/19/23 16:15:00 EDT, Weight Dosing Start Date: 12/19/23 Stop Date: 12/26/23 Status: Ordereddicyclomine (Bentyl) 20 MG tablet Take 20 mg by mouth every 12 (twelve) hours if needed (abd cramping) Activedocusate sodium 100 mg oral capsule (3 sources)Start: 25-96-0858ppaa 1 capsule by mouth twice dailydocusate sodium (Colace) 100 mg capsule Indications: Acute post-operative pain Take 1 capsule (100 mg) by mouth 2 times a day. To prevent constipation while taking narcotics 20 capsule 01/30/2025 11:09 AM EDT 01/30/2025 Activefamotidine 20 mg oral tablet (5 sources)Histamine-2 Receptor AntagonistStart: 51-25-0450yntb 20 mg by mouth once daily20 mg, oral, Daily, First dose on Tue01/29/25 at 1645, Phase II/On UnitStart: 36-28-3075lkcs 1 tablet by mouth twice dailyPepcid 20 mg Tab See Instructions, 1 tab(s) Oral BID, Refills(s) 0 Start Date: 12/26/24 Status: Order ed Repeat number: 11 ml heparin sodium, porcine 5000 unt/ml injection (1 source)Unfractionated Heparin, Anti-coagulantStart: 59-67-9875hbsyeh 5000 [IU] by subcutaneous injection every eight hours5,000 Units, subcutaneous, Every 8 hours, First dose on Tue01/29/25 at 1645, Phase II/On Unit12 hr hyoscyamine sulfate 0.375 mg extended release oral tablet (7 sources)Start: 03-06-2024 End: 96-36-4764vavn 1 tablet by mouth every twelve hours in the morning hyoscyamine ER (Levbid) 0.375 MG 12 hr tablet Take 375 mcg by mouth in the morning and 375 mcg before bedtime. 03/06/2024 04/30/2024 Discontinued (Therapy completed)lidocaine 0.05 mg/mg medicated patch (5 sources)Antiarrhythmic, Amide Local AnestheticStart: 02-26-2025 End: 04-01-0730rwgiv 1 dose transdermal route every twelve hours, then apply 1 dose transdermal route every twelvehourslidocaine (Lidoderm) 5 % patch Indications: Intercostal neuritis Place 1 patch over 12 hours on theskin once daily. Remove & discard patch within 12 hours or as directed by MD. 30 patch 1 02/26/2025 02/26/2026 ActiveStart: 93-08-4232fzuey 1 dose transdermal route once daily1 patch, transdermal, Administer over 12 Hours, Daily, First dose on Tue01/30/25 at 0900, Apply to abdomen. Patch will remain on for 12 hours, then removed for [address] patch directly over any surgical incisions or wounds.Start: 01-29-2025 End: patch, transdermal, Administer over 12 Hours, 4 times daily PRN, pain mild (1-3), first line, Starting on Tue01/29/25 at 1613, Apply to abdomen. Patch will remain on for 12 hours, then removed for [address] patch directly over any surgical incisions or wounds.Start: 07-12-2024 End: 97-83-5324Ek needed, Starting on Tue07/12/24 at 1443, Intraprocedure mecobalamin 1 mg sublingual tablet (3 sources)Start: 72-32-7372wtpkppjll 15 mg oral tablet (1 source)Nonsteroidal Anti-inflammatory DrugStart: 26-03-7389tmki 1 tablet by mouth once daily as needed for painmeloxicam 15 mg Tab 15 mg = 1 tab(s), Oral, Daily, PRN Pain, # 30 tab(s), Refills(s) 0, Pharmacy: [facility]/pharmacy #[id number], 170, cm, 12/26/24 8:52:00 EDT, Height/Length Dosing, 61.2, kg, 12/26/24 8:52:00 EDT, Weight Dosing Start Date: 12/26/24 Status: Ordered Quantity: 30.0 Unit: tab(s) Repeat number: 1methocarbamol 500 mg oral tablet (5 sources)Muscle RelaxantStart: 19-60-9515zbyc 1 tablet by mouth every six hours for muscle spasmsmethocarbamol (Robaxin) 500 mg tablet Indications: Acute post-operative pain Take 1 tablet (500 mg)by mouth every 6 hours if needed for muscle spasms. 20 tablet 1 01/30/2025 11:09 AM EDT 01/30/2025 ActiveStart: ,000 mg, intravenous, Administer over 5 Minutes, Once, On Tue01/29/25 at 1145, For 1 dose, Recovery (only)Naloxone (1 source)Opioid AntagonistStart: 64-06-1072immufvjpfq 20 mg delayed release oral capsule (20 sources)Proton Pump InhibitorStart: 55-16-3360kcgw 1 capsule by mouth twice dailyStart: 06-28-6579mjsg 1 capsule by mouth once dailyomeprazole 40 mg Cap-DR 40 mg = 1 cap(s), Oral, Daily, # 90 cap(s), Refills(s) 3, Pharmacy: [facility]/pharmacy #[id number], 170, cm, 03/09/24 8:14:00 EDT, Height/Length Dosing, 57, kg, 03/09/24 8:14:00 EDT, Weight Dosing Start Date: 07/18/24 Status: Ordered Quantity: 90.0 Unit: cap(s) Repeat number: 4Start: 12-22-2023 End: 87-51-3231syqv 1 capsule by mouth in the morningomeprazole (PriLOSEC) [address] capsule Indications: Pain of upper abdomen Take 1 capsule (20 mg) bymouth in the morning and 1 capsule (20 mg) in the evening. Take before meals. 60 capsule 1 06/15/2024 Activeondansetron 4 mg disintegrating oral tablet (20 sources)Serotonin-3 Receptor AntagonistStart: 85-62-8150bdvo 1 tablet by mouth every six hours4 mg, oral, Every 6 hours, First dose on Tue01/29/25 at 1645, Phase II/On UnitStart: 07-75-6811jlrk 1 tablet by mouth every eight hours Start: 11-62-7955fpfw 1 tablet by mouth every six hours as needed for nausea ondansetron 4 mg Dis Tab 4 mg = 1 tab(s), Oral, q6hr, PRN Nausea/Vomiting, # 12 tab(s), Refills(s) 0, Pharmacy: [facility]/pharmacy #[id number], 170, cm, 12/17/24 21:07:00 EDT, Height/Length Dosing, 61, kg, 12/17/24 21:07:00 EDT, Weight Dosing Start Date: 12/17/24 Status: Ordered Quantity: 12.0 Unit: tab(s) Repeat number: 1Start: 94-75-7109hqig 1 tablet by mouth every eight hours as needed for nausea and vomitingondansetron (Zofran) 4 MG tablet Take 4 mg by mouth every 8 (eight) hours if needed for nausea or vomiting 03/17/2024 ActiveStart: 12-20-2023 End: 19-26-3913vrkl 1 tablet by mouth every eight hours as neededondansetron ODT (Zofran-ODT) 4 mg disintegrating tablet Dissolve 1 tablet (4 mg) in the mouth every8 hours if needed. 12/20/2023 ActiveoxyCODONE hydrochloride 5 mg oral tablet (5 sources)Opioid AgonistStart: 87-26-0682mzag 1 tablet by mouth every six hours for painoxyCODONE (Roxicodone) 5 mg immediate release tablet Indications: Acute post-operative pain Take 1 tablet (5 mg) by mouth every 6 hours if needed for severe pain (7 - 10). 20 tablet 01/30/2025 11:09 AM EDT 01/30/2025 ActiveStart: 24-68-5723mxva 1 tablet by mouth every six hours as bikhju31 mg, oral, Every 6 hours PRN, pain severe (7-10), first line, Starting on Tue01/30/25 at 0720, If ordered PRN for pain, nurse is permitted to administer this medication for higher pain scores basedon patient preference? YesStart: 44-47-0805fbou 1 tablet by mouth every four hours as needed5 mg, oral, Every 4 hours PRN, pain moderate (4-6), first line, Starting on Tue01/30/25 at 0719, Ifordered PRN for pain, nurse is permitted to administer this medication for higher pain scores basedon patient preference? Yespantoprazole 40 mg delayed release oral tablet (1 source)Proton Pump InhibitorStart: 45-20-1968elgd 40 mg by mouth once daily before wmdhecgpq01 mg, oral, Daily before breakfast, First dose on Tue01/30/25 at 0700, Phase II/On Unit, Do not crush, chew, or split.polyethylene glycol 3350 54544 mg powder for oral solution (1 source)Osmotic LaxativeStart: 09-67-673025 g, oral, Daily, First dose on Tue01/29/25 at 1645, Phase II/On Unit, Bowel Regimen - for prevention of constipation.promethazine hydrochloride 25 mg oral tablet (1 source)PhenothiazineStart: 22-79-6556xdwe 1 tablet by mouth every four hours as needed for nauseapromethazine 25 mg Tab 25 mg = 1 tab(s), Oral, q4hr, PRN Nausea, # 12 tab(s), Refills(s) 0, Pharmacy: [facility]/pharmacy #[id number], 170, cm, 12/17/24 21:07:00 EDT, Height/Length Dosing, 61, kg, 12/17/24 21:07:00 EDT, Weight Dosing Start Date: 12/17/24 Status: Ordered Quantity: 12.0 Unit: tab(s) Repeat number:172 hr scopolamine 0.0139 mg/hr transdermal system (2 sources)AnticholinergicStart: 01-29-2025 End: patch, transdermal, Administer over 72 Hours, Every 72 hours, First dose on Tue01/29/25 at 1645, Phase II/On Unit, Wash hands before and after application to avoid drug contact with eyes. Apply to hairless area of skin behind the ear. Once patch has been affixed behind ear, do not touch while being worn.sucralfate 1000 mg oral tablet (9 sources)Aluminum ComplexStart: 02-21-2024 End: 80-92-4791rnmkjenyob (Carafate) 1 g tablet Take 1 g by mouth 02/21/2024 03/28/2024 Discontinued (Therapy completed)traMADol hydrochloride 50 mg oral tablet (19 sources)Opioid AgonistStart: 12-19-2023 End: 45-23-1861gypr 1 tablet by mouth every six hours as needed for paintraMADol (Ultram) 50 MG tablet Take 50 mg by mouth every 6 (six) hours if needed for severe pain Ptis taking half of 50mg (25mg) every 6hrs PRN 12/19/2023 04/30/2024 Discontinued (Therapy completed)vitamin b12 1 mg oral tablet (20 sources)Vitamin G78Uxqau: 65-12-7027wtdu 1000 ug by mouth once daily1,000 mcg, oral, Daily RT, First dose on Tue01/29/25 at 1645, Phase II/On UnitStart: 72-59-0100Zmkxjtt B12 Refills(s) 0 Start Date: 07/23/24 Status: Ordered Repeat number: 1Vitamin D (1 source)Start: 97-66-3086Crwgame D International_Unit, Oral, qWeek, Refills(s) 0 Start Date: 07/23/24 Status: Ordered Repeat number: 1Zofran ODT 4 mg Tab-Dis (5 sources)Start: 35-86-8072cqku 1 tablet by mouth three times dailyZofran ODT 4 mg Tab-Dis 4 mg = 1 tab(s), Oral, TID, # 15 tab(s), Refills(s) 0, Pharmacy: [facility]/pharmacy #[id number], 170.2, cm, 12/19/23 16:15:00 EDT, Height/Length Dosing, 57.8, kg, 12/19/23 16:15:00 EDT, Weight Dosing Start Date: 12/20/23 Status: Ordered Quantity: 15.0 Unit: tab(s) Repeat number: 1Start: 48-25-8051gfzh 1 tablet by mouth three times dailyZofran ODT 4 mg Tab-Dis 4 mg = 1 tab(s), Oral, TID, # 15 tab(s), Refills(s) 0, [id number] 170.2, cm, 12/19/23 16:15:00 EDT, Height/Length Dosing, 57.8, kg, 12/19/23 16:15:00 EDT, We ight Dosing Start Date: 12/20/23 Status: Ordered Completed/Discontinued Medications MedicationDrug Class(es)DatesSig (Normalized)Sig (Original)barium sulfate (E-Z-Paque) 96 % (w/w) suspension 100 mL (1 source)Start: 08-24-2024 End: 26-35-9065czod 100 mL by mouth adxl022 mL, oral, Once in imaging, Starting on Tue08/24/24 at 1225, For 1 dosebarium sulfate (EZ HD BARIUM) 98 % suspension 130 mL (1 source)Start: 08-24-2024 End: 59-59-4743bzxu 130 mL by mouth vyjw250 mL, oral, Once in imaging, Starting on Tue08/24/24 at 1226, For 1 dose30 ml bupivacaine hydrochloride 5 mg/ml injection (4 sources)Amide Local AnestheticStart: 07-12-2024 End: 43-04-9906Sz needed, Starting on Lexy 07/12/24 at 1443, IntraprocedureStart: 07-12-2024 End: 72-80-9050Tu needed, Starting on Lexy 07/12/24 at 1443, Intraprocedurecalcium chloride 0.0014 meq/ml / potassium chloride 0.004 meq/ml / sodium chloride 0.103 meq/ml / sodium lactate 0.028 meq/ml injectable solution (1 source)Start: 01-29-2025 End: 67-99-5921fwuf 75 mL intravenously every hour75 mL/hr, intravenous, Continuous, Starting on Tue01/29/25 at 1645, For 1 day, Phase II/On Unit1 ml dexamethasone phosphate 10 mg/ml injection (2 sources)CorticosteroidStart: 07-12-2024 End: 26-99-8838Bf needed, Starting on Lexy 07/12/24 at 1444, Intraprocedure1 ml fentaNYL 0.05 mg/ml injection (4 sources)Opioid AgonistStart: 07-12-2024 End: 68-96-7091Uw needed, Starting on Lexy 07/12/24 at 1443, Intraprocedure1 ml HYDROmorphone hydrochloride 1 mg/ml cartridge (2 sources)Opioid AgonistStart: 01-29-2025 End: 20-47-8941hidw 0.2 mg intravenously every four hours as needed0.2 mg, intravenous, Every 4 hours PRN, pain breakthrough, Starting on Tue01/29/25 at 1613Start: 01-29-2025 End: 50.5 mg, intravenous, Every 5 min PRN, pain severe (7-10), first line, Starting on Tue01/29/25 at 1025, Recovery (only), Max total of 4 mg regardless of dose.iohexol (OMNIPaque) 240 mg iodine/mL solution (2 sources)Start: 07-12-2024 End: 35-35-8287Cg needed, Starting on Lexy 07/12/24 at 1444, Intraprocedure1 ml ketorolac tromethamine 30 mg/ml injection (1 source)Nonsteroidal Anti-inflammatory Drug, Cyclooxygenase InhibitorStart: 01-29-2025 End: 91-71-7993hmpp 30 mg intravenously every eight hours30 mg, intravenous, Every 8 hours, First dose on Tue01/29/25 at 1645, For 24 hours, Phase II/On Unit 100 ml magnesium sulfate 10 mg/ml injection (1 source)Start: 01-29-2025 End: 96-26-2447lzch 1 g intravenously every eight hours1 g, intravenous, at 100 mL/hr, Administer over 1 Hours, Every 8 hours, First dose on Tue01/29/25 at 1630, For 3 doses, For 3 doses5 ml midazolam 1 mg/ml injection (2 sources)BenzodiazepineStart: 07-12-2024 End: 30-43-6384Yc needed, Starting on Tue07/12/24 at 1438, Intraprocedure pilocarpine hydrochloride 5 mg oral tablet (2 sources)Cholinergic Receptor AgonistStart: 05-22-2024 End: 18-71-0906cthn 1 tablet by mouth four times daily at bedtime as needed pilocarpine (Salagen) 5 mg tablet TAKE 1 TABLET BY MOUTH 4 TIMES A DAY NEEDED (15 MINUTES BEFOREMEALS AND AT BEDTIME) 05/22/2024 06/18/2024 Discontinued (Med List Cleanup)pregabalin 50 mg oral capsule (4 sources)Start: 08-13-2024 End: 16-05-8442xowclmcksc (Lyrica) 50 mg capsule Indications: Median arcuate ligament syndrome , Neuralgia Take 1 capsule nightly for 1 week then take 1 capsule twice a day thereafter 60 capsule 08/13/2024 09/14/2024 Discontinued (Therapy completed) Problems Active Problems Problem ClassificationProblemDateDocumented DateEpisodic/ChronicAbdominal pain (20 sources)Pelvic and perineal pain; Translations: [Abdominal pain]Onset: 52-70-7704JnvdolueVeeppcs on above:Outside Source Comment: Last Assessment & Plan: Cont omeprazole and anti spasmodic Has GI appt 01/19/24, Unclear etiology: I do not think all related to HH, ?IBS? ??anxiety Will fu in 6 weeksAnxiety disorders (20 sources)Panic attack; Translations: [Panic disorder [episodic paroxysmal anxiety]]Onset: 491625-47-0815WeokbsuLpclnwjahnsro (20 sources)Endometriosis, unspecified; Translations: [Endometriosis (clinical)] Onset: 856148-69-8402BhglnccOnmekfcxco disorders (20 sources)Gastroesophageal reflux disease; Translations: [Gastro-esophageal reflux disease without esophagitis]Onset: 594651-73-4842VdnardgKenkjndr (20 sources)Ocular hypertension; Translations: [Ocular hypertension, unspecified eye]Onset: 457560-42-3220OkneyioDwvmuvxct disorders (20 sources)Dysmenorrhea, unspecified; Translations: [Excessive and frequent menstruation with regular cycle]Onset: 77-00-1981ExvtpiiZuuqcligmbl chest pain (20 sources)Tight chest; Translations: [Other chest pain]Onset: 02-21-2024 98-18-0270NicrlxipLhtwtvgncnt deficiencies (20 sources)Iron deficiency; Translations: [Iron deficiency]Onset: 03-09-2022 EpisodicOther circulatory disease (20 sources)Celiac artery compression syndrome; Translations: [Celiac artery compression syndrome]Onset: 481814-25-7152MeacqzvZddhy circulatory disease (10 sources)Celiac artery compression syndrome; 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)]Onset: 55-64-8889DeiqetvLyzpm connective tissue disease (1 source)Neuralgia; Translations: [Neuralgia and neuritis, unspecified] 19-49-9810YguklpztGhbrj eye disorders (20 sources)Myogenic ptosis; 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]Onset: 224631-65-0383WawlauwcQlown female genital disorders (4 sources)Unspecified dyspareunia; Translations: [UNSPECIFIED DYSPAREUNIA] Onset: 16-05-2876ImfnwvcWyjss gastrointestinal disorders (20 sources)Dysphagia; Translations: [Dysphagia, unspecified]Onset: 01-10-2024 79-64-5464TsqndghcNxgeq liver diseases (20 sources)Large liver; Translations: [Hepatomegaly, not elsewhere classified] Onset: 55-02-6645GzsarpdcDdtsx nervous system disorders (1 source)Peripheral neuritis; Translations: [Other specified mononeuropathies] 55-29-2263WhzkuolWfkiy nervous system disorders (2 sources)Other specified mononeuropathies; Translations: [Other specified mononeuropathies]Onset: 77-74-6978GbninbpUuwps nervous system disorders (1 source)Acute postoperative pain; Translations: [Other acute postprocedural pain]29-34-5699GwratjpmCumnh screening for suspected conditions (not mental disorders or infectious disease) (20 sources)Encounter for screening for malignant neoplasm of cervix; Translations: [Other abnormal and inconclusive findings on diagnostic imaging of breast]Onset: 00-64-3205ShfamwqvFdqybajw codes; unclassified (3 sources)Family history of malignant neoplasm of digestive organ; Translations: [Family history of malignantneoplasm of digestive organs]Onset: 77-87-0765VgknswegXveniycw codes; unclassified (20 sources)Family history of malignant neoplasm of pancreas; Translations: [Family history of malignant neoplasm of digestive organs]Onset: 03-28-2024 12-10-7001IrupnmzmOuspwfppwhih (1 source)PERSONAL HISTORY OF COVID-19; Translations: [PERSONAL HISTORY OF COVID-19]Onset: 92-85-0303Jkbwpevkupuc (4 sources)CONTACT W/AND (SUSP) EXPOS COVID-19; Translations: [CONTACT W/AND (SUSP) EXPOS COVID-19]Onset: 01-06-2022 Past or Other Problems Problem ClassificationProblemDateDocumented DateEpisodic/ChronicAbdominal hernia (7 sources)Hiatal hernia; Translations: [Diaphragmatic hernia without obstruction or gangrene]Onset: 900877-63-0391JxkhelwwSoevkccqeocwr and procreative management (1 source)Tubal ligation status; Translations: [TUBAL LIGATION STATUS]Onset: 23-54-2961PqauhpfpQrnachqgtu and other anemia (1 source)Anemia, unspecified; Translations: [ANEMIA UNSPECIFIED]Onset: 95-18-0070CzxwsaepFdvjnqpzhsnwh and screening for infectious disease (20 sources)Encounter for screening for human papillomavirus (HPV); Translations: [Raised antinuclear antibody]Onset: 782315-14-0171Bdcrytcx Inflammatory diseases of female pelvic organs (1 source)Female pelvic peritoneal adhesions (postinfective); Translations: [FE PELV PERITON ADHES POSTINFECTIVE]Onset: 50-60-8580NahkaubxDhtdprl and fatigue (1 source)Other fatigue; Translations: [OTHER FATIGUE]Onset: 83-15-6295Bgoovnnl Nonmalignant breast conditions (4 sources)Unspecified lump in the left breast, lower outer quadrant; Translations: [Other benign mammary dysplasias of left breast]Onset: 09-22-2021 EpisodicOther connective tissue disease (2 sources)Neuralgia and neuritis, unspecified; Translations: [Neuralgia and neuritis, unspecified]Onset: 92-14-3388UionjzncBlbsgnpdv and history of mental health and substance abuse codes (1 source)Personal history of nicotine dependence; Translations: [PERSONAL HISTORY OF NICOTINE DEPEND]Onset: 94-34-4693SeainqucGabbahfbgdqe (1 source)CONTACT W/AND (SUSP) EXPOS COVID-19; Translations: [CONTACT W/AND (SUSP) EXPOS COVID-19]Onset: 91-82-1071Lactuskswvdk (13 sources)Onset: 05-29-2024 Resolved: Results Test NameValueInterpretationReference RangeFacilityBasic metabolic 2000 panelon 86-61-6116Gkjdm gap [Moles/Vol]9 mmol/LLow10 - 20 mmol/[facility] HospitalCalcium [Mass/Vol]8.4 mg/dLLow8.6 - 10.6 mg/dLUnMagruder Memorial HospitalChloride [Moles/Vol]107 mmol/L98 - 107 mmol/[facility] HospitalCO2 [Moles/Vol]28 mmol/L21 - 32 mmol/[facility] Creatinine [Mass/Vol]0.69 mg/dL0.50 - 1.05 mg/dLUnMagruder Memorial HospitaleGFR- PINFUniProtestant HospitalComment on above: Calculations of estimated GFR are performed using the 2020 CKD-EPI Study Refit equation without therace variable for the IDMS-Traceable creatinine methods. https://jasn.asnjournals.org/content//ASN.3758825883 Glucose [Mass/Vol]104 mg/fHBjjc79 - 99 mg/dLUnMagruder Memorial Hospital Interpretation and review of laboratory resultsAbnormalUniProtestant HospitalPotassium [Moles/Vol]4.0 mmol/L3.5 - 5.3 mmol/[facility] HospitalSodium [Moles/Vol]140 mmol/L136 - 145 mmol/[facility] HospitalUrea nitrogen [Mass/Vol]12 mg/dL6 - 23 mg/dLKettering Health Main CampusUnMagruder Memorial HospitalAnion gap [Moles/Vol]9 mmol/BQio52-25 [facility] HospitalComment on above:Performed By: #### 62358-1 ####SIDNEY Kelly ([id number])[facility] ([facility])[address] [place] [address]Yrgyuwx [Mass/Vol]8.4 mg/dLLow8.6-10.6UnGreene Memorial HospitalComment on above:Performed By: #### 91166-6 ####SIDNEY Kelly ([id number])[facility] ([facility])[address] [place], [place] [address]Vquimfkt [Moles/Vol]107 mmol/YDlzveo72-884MjilogbmfrGreene Memorial HospitalComment on above:Performed By: #### 05904-3 ####SIDNEY Kelly ([id number])[facility] ([facility])[address] [place], [place] [address]ZJ3 [Moles/Vol]28 mmol/UQvvsjr70-68AzshwdekfqGreene Memorial Hospital Comment on above:Performed By: #### 10827-5 ####SIDNEY Kelly ([id number])[facility] ([facility])[address] [place], [place] [address]Vwwtesdzqa [Mass/Vol]0.69 mg/dLNormal0.50-1.05[facility] Comment on above:Performed By: #### 09933-0 ####SIDNEY Kelly ([id number])[facility] ([facility])[address] [place], [place] [address]Idamjxzioz filtration rate>90Normal>60UnGreene Memorial HospitalComment on above:Result Comment: Calculations of estimated GFR are performed using the 2020 CKD-EPI Study Refit equation without the race variable for the IDMS- Traceable creatinine methods. https://jasn.asnjournals.org/content//ASN.1049351198Eazmnljpq By: #### 98430-4 ####SIDNEY Kelly ([id number])[facility] ([facility])[address] [place], [place] [address]Xprtjii [Mass/Vol]104 mg/oGEmay73-41WgmvxjewkqCleveland Clinic Mercy HospitalComment on above:Performed By: #### 91215-3 ####SIDNEY Kelly ([id number])[facility] ([facility])[address] [place], [place] [address]Sjpfvrnnv [Moles/Vol]4.0 mmol/LNormal3.5-5.3[facility] HospitalComment on above:Performed By: #### 75766-9 ####SIDNEY Kelly ([id number])[facility] ([facility])[address] [place], [place] [address]Rcxhxl [Moles/Vol]140 mmol/HUavbjb436-355GuniqtwwaiC[facility] Clinic [facility] Hospital Comment on above:Performed By: #### 76297-6 ####SIDNEY Kelly ([id number])[facility] ([facility])[address] [place], [place] [address]Aslo nitrogen [Mass/Vol]12 mg/dLNormal6-23[facility] HospitalComment on above:Performed By: #### 92186-4 ####SIDNEY Kelly ([id number])[facility] ([facility])[address] [place], [place] [address]XZT panel Auto (Bld)on 01-30-2025 Erythrocyte distribution width (RBC) [Ratio]13.0 %11.5 - 14.5 %[facility] CampusHematocrit (Bld) [Volume fraction]35.8 %Low36.0 - 46.0 % [facility] CampusHemoglobin (Bld) [Mass/Vol]11.9 g/dLLow12.0 - 16.0 g/dLKettering Health Main CampusInterpretation and review of laboratory resultsAbnormalUniProtestant HospitalMCH (RBC) [Entitic mass]31.7 pg26.0 - 34.0 pgKettering Health Main CampusMCHC (RBC) [Mass/Vol] 33.2 g/dL32.0 - 36.0 g/dLKettering Health Main CampusMCV (RBC) [Entitic vol]96 fL80 - 100 fLUniProtestant HospitalNucleated RBC/100 WBC (Bld) [Ratio]0.0 %[facility] CampusPlatelets (Bld) [#/Vol]139 10*3/uL Peoples HospitalRBC (Bld) [#/Vol]3.75 10*6/uLPeoples HospitalWBC (Bld) [#/Vol]15.8 10*3/uLRiver Park HospitalUnMagruder Memorial HospitalUnMagruder Memorial HospitalErythrocyte distribution width (RBC) [Ratio]13.0 %Sxlsys01.5-14.5[facility] HospitalComment on above:Performed By: #### 31718-1 ####SIDNEY Kelly ([id number])[facility] ([facility])[address] [place], [place] [address]Tsocmdricz (Bld) [Volume fraction] 35.8 %Low36.0-46.0[facility] HospitalComment on above: Performed By: #### 41439-0 ####SIDNEY Kelly ([id number])[facility] ([facility])[address] [place], [place] [address]Kszxisncpt (Bld) [Mass/Vol]11.9 g/dLLow12.0-16.0 [facility] HospitalComment on above:Performed By: #### 30789-2 ####SIDNEY Kelly ([id number])[facility] ([facility])[address] [place], [place] [address]YOZ (RBC) [Entitic mass]31.7 slOnqfad92.0-34.0 [facility] HospitalComment on above:Performed By: #### 02845-5 ####SIDNEY Kelly ([id number])[facility] ([facility])[address] [place], [place] [address]MIGV (RBC) [Mass/Vol]33.2 g/jIIiyjfw72.0-36.0UnGreene Memorial HospitalComment on above:Performed By: #### 05284-2 ####SIDNEY Kelly ([id number])[facility] ([facility])[address] [place], [place] [address]CBT (RBC) [Entitic vol]96 aQCoymxx45-181DrwubrfkobGreene Memorial HospitalComment on above:Performed By: #### 20703-2 ####SIDNEY Kelly ([id number])[facility] ([facility])[address] [place] [address] Nucleated RBC/100 WBC (Bld) [Ratio]0.0 /100 WBCsNormal0.0-0.0[facility] HospitalComment on above:Performed By: #### 26390-2 ####SIDNEY Kelly ([id number])[facility] ([facility])[address] [place], [place] [address]Nlpgtyxlh (Bld) [#/Vol]139 x10*3/bQSwi085-894MpmxebcqawGreene Memorial HospitalComment on above:Performed By: #### 28748-6 ####SIDNEY Kelly ([id number])[facility] ([facility])[address] [place], [place] [address]NJQ (Bld) [#/Vol]3.75 x10*6/uLLow4.00-5.20UnGreene Memorial HospitalComment on above:Performed By: #### 54274-2 ####SIDNEY Kelly ([id number])[facility] ([facility])[address] [place], [place] [address]IND (Bld) [#/Vol]15.8 x10*3/uLHigh4.4-11.3[facility] HospitalComment on above:Performed By: #### 25278-8 ####SIDNEY Kelly ([id number])[facility] ([facility])[address] [place] [address]Ejtraocfjcv 79-38-9161Pxwgtvdca [Mass/Vol]2.52 mg/dLHigh1.60 - 2.40 mg/dLKettering Health Main CampusMagnesium [Mass/Vol]2.52 mg/dLHigh1.60-2.40[facility] HospitalComment on above:Performed By: #### 41496-0 ####SIDNEY Kelly ([id number])[facility] ([facility])[address] [place] [address]Ruixrukih [Mass/Vol]on 28-70-6723Wukbwletltrlat and review of laboratory resultsAbnoLakeHealth Beachwood Medical CenterAbo/Rh Group Test - STAT (VERAB)on 57-13-7880PLJ group Nom (Bld)B [facility] Ag Ql (Bld)NegativeKettering Health Main CampusReview your Rh Negative female patient's potential need for Rh Immune Globulin (RhIg)administration.[facility] CenterBB ORDER ONLY - ANTIBODY IDENTIFICATIONon 03-71-4572Dvogi group antibody investigation (P/RBC) [Interp]ANTI-DNAdena Regional Medical CenterComment on above:Order Comment: WEAK UN-EXPLAINED REACTION IS PROBABLY DUE TO HLA ANTIBODY.Performed By: #### ABID ####SIDNEY Kelly ([id number])[facility] ([facility])[address] [place] [address] CASE #[id number] Elizabeth Boardman HospitalComment on above:Order Comment: WEAK UN-EXPLAINED REACTION IS PROBABLY DUE TO HLA ANTIBODY. Performed By: #### ABID ####SIDNEY Kelly ([id number])[facility] ([facility])[address] [place], [place] [address]Pwxyy type and Indirect antibody screen panel (Bld)on 18-31-5147WJY group Nom (Bld)[facility] HospitalBlcommunity memorial hospital group antibody screen QlPosSumma Health Wadsworth - Rittman Medical Center D Ag Ql (Bld)[facility] your Rh Negative female patient's potential need for Rh Immune Globulin (RhIg)administration. [facility] group Nom (Bld)BNAdena Regional Medical CenterComment on above:Order Comment: Review your Rh Negative female patient's potential need for Rh Immune Globulin (RhIg)administration.Performed By: #### 86459-2 #### SIDNEY Kelly ([id number]) [facility] ([facility]) [address] [place], [place] [address]Rvsfq group antibody screen QlPositiveSelect Medical [facility] Clinic Rehabilitation Hospital, AvonComment on above:Order Comment: Review your Rh Negative female patient's potential need for Rh Immune Globulin (RhIg) administration.Performed By: #### 93863-3 #### SIDNEY Kelly ([id number]) [facility] ([facility]) [address] [place], [place] [address]N Ag Ql (Bld)[facility] Memorial HospitalComment on above:Order Comment: Review your Rh Negative female patient's potential need for Rh Immune Globulin (RhIg)administration.Performed By: #### 77552-0 #### SIDNEY Kelly ([id number]) [facility] ([facility]) [address] [place], [place] [address]NAN group Nom (Bld)[facility] group antibody screen QlPosSumma Health Wadsworth - Rittman Medical CenterD Ag Ql (Bld) [facility] your Rh Negative female patient's potential need for Rh Immune Globulin (RhIg)administration.[facility] group Nom (Bld)B [facility], AvonComment on above:Order Comment: As needed preprocedure ONCE for scheduled for aortic, liver, cardiac, or thoracic surgery OR hgb<7.5mg/dl and no active type and screen. RN to release order. Review your Rh Negative female patient's potential need for Rh Immune Globulin (RhIg)administration.Performed By: #### 15187-4 #### SIDNEY Kelly ([id number]) [facility] ([facility]) [address] [place] [address]Fzwpg group antibody screen QlPositiveSelect Medical [facility] Hospital, AvonComment on above:Order Comment: As needed preprocedure ONCE for scheduled for aortic, liver, cardiac, or thoracic surgery OR hgb<7.5mg/dl and no active type and screen. RN to release order. Review your Rh Negative female patient's potential need for Rh Immune Globulin (RhIg)administration.Performed By: #### 97978-1 #### SIDNEY Kelly ([id number]) [facility] ([facility]) [address] [place] [address]H Ag Ql (Bld)NegativeSelect Medical Cleveland Clinic Rehabilitation Hospital, AvonComment on above:Order Comment: As needed preprocedure ONCE for scheduled for aortic, liver, cardiac, or thoracic surgery OR hgb<7.5mg/dl and no active type and screen. RN to release order. Review your Rh Negative female patient's potential need for Rh Immune Globulin (RhIg)administration.Performed By: #### 63061-2 #### SIDNEY Kelly ([id number]) [facility] ([facility]) [address] [place] [address]DPEN REVIEW-IMMUNOHEMATOLOGYon 10-76-0092WTEU [id number] COMMENTSelect Medical [facility] Rehabilitation Hospital, AvonComment on above:Result Comment: Antibody detection screen is positive. Antibody identification panel was performed. The autocontrol is negative. Anti-D is identified. 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 All other common clinically significant alloantibodies have been ruled out. Full crossmatched D-antigen negative donor RBC units should be selected for transfusion for this patient. . By the signature on this report, the individual or group listed as making the Final Interpretation/Diagnosis certifies that they have reviewed this case. Performed By: #### PR30 ####SIDNEY Kelly ([id number])[facility] ([facility])[address] [place], [place] [address]Dcmvytau pathology studyon 01-29-2025 Surgical pathology studyPathology report.total SEE COMMENT Surgical Pathology Case: [id number] Authorizing Provider: Hossein Potter MD Collected: 01/29/2025 0905 Ordering Location: [facility] Received: 01/29/2025 1050 [facility] Pathologist: Salvador Frederick MD Specimen: LIGAMENT, MEDIAN ARCUATE LIGAMENT Path report.final diagnosis SEE COMMENT Soft Tissue, Designated as Median Arcuate Ligament , Excision: Fibrous tissue with portions of peripheral nerve. at 0925 EDT Laboratory comment By the signature on this report, the individual or group listed as making the Final Interpretation/Diagnosis certifies that they have reviewed this case. Path report.comments CD34 highlights fibrous tissue and S100 and SOX10 highlight the portions of peripheral nerve. 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 The specimen is bisected and entirely submitted in one cassette. [facility] AP ASR DISCLAIMER One or more of the reagents used to perform assays on this specimen MAY have contained components considered to be analyte specific reagents (ASR's). ASR's have not been cleared or approved by the U.S. Food and Drug Administration. These assays were developed and their performance characteristics determined by the Department of Pathology at [facility]. The FDA does not require this test to go through premarket FDA review. This test is used for clinical purposes. It should not be regarded as investigational or for research. This laboratory is certified under the Clinical Laboratory Improvement Amendments (CLIA) as qualified to perform high complexity clinical laboratory testing. The assays were performed with appropriate positive and negative controls which stained appropriately.[facility], AvonComment on above:Order Comment: Pre-op diagnosis:Median arcuate ligament syndrome [I77.4]VERAB/VERIFY ABORHon 99-73-8981UNA group Nom (Bld)BNAdena Regional Medical CenterComment on above:Order Comment: This is for confirming/verifying history of ABORh on file for transfusion of bloodproducts. If this is not for transfusion, please order an ABO/RH [[id number]]. If you have any questions or unsure what to order, please call the blood bank. Review your Rh Negative female patient's potential need for Rh Immune Globulin (RhIg)administration.Performed By: #### VERAB #### SIDNEY Kelly ([id number]) [facility] ([facility]) [address] [place] [address]H Ag Ql (Bld)NegativeNormalUniOhioHealth Shelby HospitalComment on above:Order Comment: This is for confirming/verifying history of ABORh on file for transfusion of bloodproducts. If this is not for transfusion, please order an ABO/RH [[id number]]. If you have any questions or unsure what to order, please call the blood bank. Review your Rh Negative female patient's potential need for Rh Immune Globulin (RhIg)administration.Performed By: #### VERAB #### SIDNEY Kelly ([id number]) [facility] ([facility]) [address] [place], [place] [address]Hrlod metabolic 2000 panelon 80-10-7656Teqyd gap [Moles/Vol] 11 mmol/XMrdkts24-69FqlajdloydCleveland Clinic Mercy HospitalComment on above:Performed By: #### 20853-6 #### SIDNEY Kelly ([id number]) [facility] ([facility]) [address] [place], [place] [address]Dgruscq [Mass/Vol]9.4 mg/dLNormal8.6-10.6[facility] HospitalComment on above:Performed By: #### 07810-8 #### SIDNEY Kelly ([id number]) [facility] ([facility]) [address] [place], [place] [address]Cbjzpgjp [Moles/Vol]103 mmol/CDzssld75-655HhpghkvhigGreene Memorial HospitalComment on above:Performed By: #### 88702-0 #### SIDNEY STEINMOPAULOER L ([id number]) [facility] ([facility]) [address] [place], [place] [address]RZ2 [Moles/Vol]29 mmol/PPszppy07-29OxrlyuxvotGreene Memorial HospitalComment on above:Performed By: #### 96697-0 #### SIDNEY GOMEZ L ([id number]) [facility] ([facility]) [address] [place] [address]Xsepfokjjw [Mass/Vol]0.73 mg/dLNormal0.50-1.05[facility] HospitalComment on above:Performed By: #### 65476-9 #### SIDNEY Kelly ([id number]) [facility] ([facility]) [address] [place] [address]Jkbkbzrfja filtration rate>90Normal>60UnGreene Memorial HospitalComment on above:Result Comment: Calculations of estimated GFR are performed using the 2020 CKD-EPI Study Refit equation without the race variable for the IDMS-Traceable creatinine methods. https://jasn.asnjournals.org/content//ASN.8138341786Ncpebouow By: #### 99600-6 #### SIDNEY STEINMOJUDITH L ([id number]) [facility] ([facility]) [address] [place], [place] [address]Mncnegl [Mass/Vol]73 mg/qUZln72-42GaumjvmiwdGreene Memorial HospitalComment on above:Performed By: #### 65895-2 #### SIDNEY STEINMOTZER L (59509) [facility] ([facility]) [address] [place], [place] [address]Ganrlwfbh [Moles/Vol]4.2 mmol/LNormal3.5-5.3UnGreene Memorial HospitalComment on above:Performed By: #### 98938-3 #### SIDNEY eKlly ([id number]) [facility] ([facility]) [address] [place] [address]Jsmflw [Moles/Vol]139 mmol/CSzwosm994-771HtbidhwjquGreene Memorial HospitalComment on above:Performed By: #### 78967-6 #### SIDNEY Kelly ([id number]) [facility] ([facility]) [address] [place] [address]Cihk nitrogen [Mass/Vol]25 mg/dLHigh6-23UnGreene Memorial HospitalComment on above:Performed By: #### [id number] #### SIDNEY Kelly ([id number]) [facility] ([facility]) [address] [place] [address]YMV panel Auto (Bld)on 37-22-1383Rnfllvnfjji distribution width (RBC) [Ratio]13.1 %Towqtr12.5-14.5UnGreene Memorial HospitalComment on above:Performed By: #### [id number] #### SIDNEY Kelly ([id number]) [facility] ([facility]) [address] [place] [address]Sivnfztijn (Bld) [Volume fraction]38.8 %Tvmshn43.0-46.0 [facility] HospitalComment on above:Performed By: #### [id number] #### SIDNEY Kelly ([id number]) [facility] ([facility]) [address] [place] [address] 87677Jethcitqzd (Bld) [Mass/Vol]12.7 g/lOBiyttq38.0-16.0UnGreene Memorial HospitalComment on above:Performed By: #### [id number] #### SIDNEY Kelly ([id number]) [facility] ([facility]) [address] [place] [address] 06353JSC (RBC) [Entitic mass]31.2 jdMrrddy58.0-34.0UnGreene Memorial HospitalComment on above:Performed By: #### [id number] #### SIDNEY Kelly ([id number]) [facility] ([facility]) [address] [place], [place] [address]JTUG (RBC) [Mass/Vol]32.7 g/sNYyvkzb81.0-36.0[facility] HospitalComment on above:Performed By: #### [id number] #### SIDNEY Kelly ([id number]) [facility] ([facility]) [address] [place], [place] [address]BRF (RBC) [Entitic vol]95 wXDwnpky16-849QagqurtmnhGreene Memorial HospitalComment on above:Performed By: #### [id number] #### SIDNEY Kelly ([id number]) [facility] ([facility]) [address] [place], [place] [address]Jygapyyye RBC/100 WBC (Bld) [Ratio]0.0 /100 WBCsNormal0.0-0.0 [facility] HospitalComment on above:Performed By: #### [id number] #### SIDNEY Kelly ([id number]) [facility] ([facility]) [address] [place], [place] [address]Xaewcvzho (Bld) [#/Vol]188 x10*3/qXSspsxo414-213UhszbtzepyGreene Memorial HospitalComment on above:Performed By: #### [id number] #### SIDNEY Kelly ([id number]) [facility] ([facility]) [address] [place], [place] [address]MAL (Bld) [#/Vol]4.07 x10*6/uLNormal4.00-5.20UnGreene Memorial HospitalComment on above:Performed By: #### 75102-7 #### SIDNEY Kelly ([id number]) [facility] ([facility]) [address] [place], [place] [address]ONX (Bld) [#/Vol]9.4 x10*3/uLNormal4.4-11.3[facility] HospitalComment on above:Performed By: #### 51684-0 #### SIDNEY Kelly ([id number]) [facility] ([facility]) [address] [place] [id number] Office/Clinic Noteon 12-27-2024 Gastroenterology Office/Clinic NoteGastroenterology Office/Clinic Note Chief Complaint follow up to ER HPI Staff Established patient is a(n) 44 year old female who presents today for a f/u from [facility] 12/17/24 for left sided abdominal pain, chronic but acutely worsening. 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 Recommended f/u with GI. Was D/C with Bentyl, naproxen, Zofran and Phenergan. -was at [place] ER week before [facility]. Any blood thinners? no Any GLP-1 agonists? no [place] Upper GI w/KUB 08/24/24 @ : IMPRESSION: 1. Unremarkable exam. CT abd/pelvis w/contrast 12/17/24: IMPRESSION: HYSTERECTOMY. RIGHT ADNEXAL CYST, MOST LIKELY OVARIAN IN ETIOLOGY. CT OF THE ABDOMEN AND PELVIS WITH INTRAVENOUS CONTRAST MEDIUM. HISTORY: ABDOMINAL PAIN, ACUTE, NONLOCALIZED. Laboratory Results CBC CMP Basophil Absolute: 0 E9/L (12/17/24) A/G Ratio: 2.1 (12/17/24) Basophil Auto: 0.4 % (12/17/24) AGAP: 11 mEq/L (12/17/24) Eos Absolute: 0.1 E9/L (12/17/24) Albumin Lvl: 4.7 gm/dL (12/17/24) Eos Auto: 0.9 % (12/17/24) Alk Phos: 31 Int._Unit/L (12/17/24) Hct: 40.4 % (12/17/24) ALT: 11 Int._Unit/L (12/17/24) HGB: 14 gm/dL (12/17/24) AST: 14 Int._Unit/L (12/17/24) Lymph Absolute: 2.1 E9/L (12/17/24) Bili Total: 0.5 mg/dL (12/17/24) Lymph Auto: 18.6 % (12/17/24) BUN: 20 mg/dL (12/17/24) MCH: 31 pg (12/17/24) BUN/Creat Ratio: 25 High (12/17/24) MCHC: 34.7 gm/dL (12/17/24) Calcium Lvl: 9.5 mg/dL (12/17/24) MCV: 89.3 fL (12/17/24) Chloride: 105 mmol/L (12/17/24) [place]in Absolute: 0.6 E9/L (12/17/24) CO2: 26 mmol/L (12/17/24) [place]in Auto: 5.2 % (12/17/24) Creatinine: 0.8 mg/dL (12/17/24) MPV: 9 fL (12/17/24) Globulin: 2.2 gm/dL (12/17/24) Neutro Absolute: 8.4 E9/L High (12/17/24) Glucose Lvl: 100 mg/dL (12/17/24) Neutro Auto: 74.9 % (12/17/24) Potassium Lvl: 4.3 mmol/L (12/17/24) Platelet: 158 E9/L (12/17/24) Sodium Lvl: 138 mmol/L (12/17/24) RBC: 4.5 E12/L (12/17/24) Total Protein: 6.9 gm/dL (12/17/24) RDW: 13 % (12/17/24) WBC: 11.2 E9/L High (12/17/24) History of Present Illness Reviewed HPI collected by staff Review of Systems PHQ Score Initial Depression Screen Score: 0 SCORE All systems reviewed, negative; Except for above Physical Exam Vitals & Measurements HR: 64(Peripheral) RR: 16 BP: 155/91 HT: 170 cm HT: 67 in WT: 134.923 lb WT: 61.2 kg BMI: 21.18 No acute distress Procedure EGD Endoflip 09/14/24 @ : Impression The esophagus appeared normal. The stomach appeared normal. Performed random biopsy to rule out H. pylori. The duodenum appeared normal. Performed random biopsy to rule out celiac disease. Endoflip impedance planimetry showed a normal EGJ opening with EGJ-DI at 6.1 mm2/mmHg and maximum EGJ diameter at 17.8 mm. Contractility pattern was normal contractile response (NCR). Pathology: SEE COMMENT A. Duodenum, Second Part, Biopsy: -- Duodenal mucosa with focal gastric mucin-cell metaplasia. No intraepithelial lymphocytosis. Normal villous architecture. B. Stomach, Antrum, Biopsy: -- Normal antral and oxyntic mucosa. No Helicobacter organisms are identified. Assessment/Plan 1. Abdominal pain (R10.9: Unspecified abdominal pain) Chronic history of abdominal pain associated with early satiety, recurrent vomiting, and weight loss Had recurrent CTs at [facility] in December 2023, showed borderline enlarged liver, otherwise unremarkable. Liver enzymes were within normal limits, pancreatic enzymes within normal limits Gastric emptying study within normal limits EGD was also done at [place], normal We tried amitriptyline 25 mg at bedtime, it helped decrease the pain a little bit, decrease the vomiting, but she still not eating well and losing weight I sent her to [facility] for abdomen ultrasound duplex suggestive of MALS Pt saw , had pain injection, no pain for 8 hours Today, she c/o LLQ pain. 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 She was seen at [facility] the week before that. Surgery for MALS scheduled for 01/29/25 Relief with Meloxicam, requesting more CT abd/pelvis w/contrast 12/17/24: HYSTERECTOMY. RIGHT ADNEXAL CYST, MOST LIKELY OVARIAN IN ETIOLOGY. [place] Upper GI w/KUB 08/24/24 @ : Unremarkable EGD Endoflip 09/14/24 @ : The esophagus, stomach, duodenum appeared normal. Endoflip impedance planimetry showed a normal EGJ opening with EGJ-DI at 6.1 mm2/mmHg and maximum EGJ diameter at 17.8 mm. Contractility pattern was normal contractile response (NCR). Pathology: Duodenal mucosa with focal gastric mucin- cell metaplasia. Negative H Pylori - Continue with Amitriptyline - Meloxicam refilled for a month, advised to stay on Omeprazole while taking it 2. Large liver (R16.0: Hepatomegaly, not elsewhere classified) FibroScan neg for fat or fibrosis 3. Family history of pancreatic cancer (Z80.0: Family history of malignant neoplasm of digestive organs) Mother at the age of 58, will discuss debra (more content not included)...Normal [facility] HospitalComment on above:Result Comment: Electronically Signed By: Davida Garibay MA\.br\Date and Time Signed: 12/26/24 09:28 EDT\.br\Electronically Co-Signed By: Booker Shelley MD\.br\Date and Time Co-Signed: 12/27/24 09:03 EDTAmbulatory Visit Summaryon 12-26-2024 Ambulatory Visit SummaryAmbulatory Visit Summary NIKKI MARTINS :1980 Visit Date:12/26/2024 Ambulatory Visit Instructions Your Diagnosis Abdominal pain Large liver Family history of pancreatic cancer Dysphagia Your Care Team Attending Physician - Booker Shelley MD Primary Care Physician - CYNDI EPPERSON CNP This Is Your Medications List meloxicam (meloxicam 15 mg Tab) Contact prescribing physician if questions or concerns amitriptyline (amitriptyline 50 mg Tab) cyanocobalamin (Vitamin B12) dicyclomine (dicyclomine 10 mg Cap) ergocalciferol (Vitamin D) famotidine (Pepcid 20 mg Tab) omeprazole (omeprazole 40 mg Cap-DR) ondansetron (Zofran ODT 4 mg Tab-Dis) ondansetron (ondansetron 4 mg Dis Tab) promethazine (promethazine 25 mg Tab) [Image Removed: STOP]Stop taking these medications naproxen (naproxen 500 mg Tab) Procedures Performed Colonoscopy (01/10/2024), EGD (esophagogastroduodenoscopic) electrohydraulic lithotripsy of bezoar in stomach (01/10/2024), History of tonsillectomy, Resection of Bilateral Fallopian Tubes, Via Natural or Artificial Opening, Resection of Uterus, Via Natural or Artificial Opening. Discharge Vitals Heart Rate (Peripheral) 64 Respiratory Rate 16 Blood Pressure 155/91 Height 170 cm Height 67 in Weight 61.2 kg Weight 134.923 lb BMI 21.18 Medications What How Much When Instructions New meloxicam (meloxicam 15 mg Tab) 1 Tablets By Mouth Every day as needed for Pain Pickup at [facility]/pharmacy #[id number] Unchanged amitriptyline (amitriptyline 50 mg Tab) 1 Tablets By Mouth Once a day (at bedtime) Contact prescribing physician if questions or concerns Unchanged cyanocobalamin (Vitamin B12) Contact prescribing physician if questions or concerns Unchanged dicyclomine (dicyclomine 10 mg Cap) Contact prescribing physician if questions or concerns Unchanged ergocalciferol (Vitamin D) By Mouth Every week Contact prescribing physician if questionsor concerns Unchanged famotidine (Pepcid 20 mg Tab) See instructions 1 tab(s) Oral BID Contact prescribing physician if questions or concerns Unchanged omeprazole (omeprazole 40 mg Cap-DR) 1 Capsules By Mouth Every day Contact prescribing physician if questions or concerns Unchanged ondansetron (ondansetron 4 mg Dis Tab) 1 Tablets By Mouth Every 6 hours as needed for Nausea/Vomiting Contact prescribing physician if questions or concerns Unchanged ondansetron (Zofran ODT 4 mg Tab-Dis) 1 Tablets By Mouth 3 times a day Contact prescribing physician if questions or concerns Unchanged promethazine (promethazine 25 mg Tab) 1 Tablets By Mouth Every 4 hours as needed for Nausea Contact prescribing physician if questions or concerns Pharmacy Information [facility]/pharmacy #[id number]: [address], [place] [id number] [phone] What How Much When Comments Stop Taking naproxen (naproxen 500 mg Tab) 1 Tablets By Mouth 2 times a day Duration: 10 Days Allergies acetaminophen-oxycodone (Gastrointestinal symptom) amoxicillin (Unkempt) Problems Ongoing - Any problem that you are currently receiving treatment for. Abdominal pain Dysmenorrhea Dysphagia Dysphagia Endometriosis (clinical) Family history of pancreatic [...] you for choosing us for your care. Patient Portal You may access all of your results and other medical record information on our secure patient portal. If you are not signed up for this yet, please contact Health Information Management at [phone] to get signed up today. Language Information Language assistance services are available as needed. [facility]CT [facility] w/ Contraston [id number] Abdomen/Pelvis w/ ContrastExam Date/Time: 12/17/2024 22:12 EDT Reason for Exam: ABDOMINAL PAIN, ACUTE, NONLOCALIZED;Other (please specify) Report IMPRESSION: HYSTERECTOMY. RIGHT ADNEXAL CYST, MOST LIKELY OVARIAN IN ETIOLOGY. CT OF THE ABDOMEN AND PELVIS WITH INTRAVENOUS CONTRAST MEDIUM. HISTORY: ABDOMINAL PAIN, ACUTE, NONLOCALIZED. TECHNICAL FACTORS: CT imaging of the abdomen and pelvis were obtained and formatted as 5 mm contiguous axial images from the domes of the diaphragm to the symphysis pubis. Sagittal and coronal reconstructions were also obtained. Comparison: 12/19/2023 Findings: Lower chest: Liver: Normal in size, shape, and attenuation. Bile Ducts: Normal in caliber. Gallbladder: No stones or wall thickening. Pancreas: Normal without masses, cysts, ductal dilatation or calcification. Spleen: Normal in size without masses or calcifications. No splenules. Kidneys: Normal in size and enhancement. No hydronephrosis, masses, or stones. Bilateral simple cortical renal cysts. Adrenals: Normal. Small bowel: Normal in caliber. Appendix: Normal. Colon: Normal in caliber. Peritoneum: No ascites, free air, or fluid collections. Vessels: Aorta normal in course and caliber. Portal vein, splenic vein, superior mesenteric vein are patent. Report Lymph nodes: Retroperitoneal: No enlarged retroperitoneal lymph nodes. Mesenteric: No enlarged mesenteric lymph nodes. Pelvic: No enlarged pelvic lymph nodes. Ureters: Normal in course and caliber. No calcifications. Bladder: No wall thickening. Reproductive organs: 2 cm right adnexal cyst uterus surgically absent. Abdominal Wall: No hernia identified. No diastasis of rectus musculature. No edema or masses. Bones: No bone lesions. No degenerative changes. No post operative changes. All CT scans at this facility use dose modulation, iterative reconstruction, and/or weight based dosing when appropriate to reduce radiation dose to as low as reasonably achievable. Technical Comments: GFR (mL/min/1/73m2) n/a Contrast: Isovue 300 Contrast amount in ml's: 100.00 Rectal Contrast Given? No Ordering Provider: Cruz Ramos FINAL REPORT Dictated: 12/18/2024 9:20 am Edwardo Bautista MD Signed (Electronic Signature): 12/18/2024 9:20 am Signed by: Edwardo Bautista MD Transcribed by: YAHIR Technologist: [facility] Medical CenterED Note-Physicianon [id number] Note-PhysicianED Note-Physician Basic Information Time Seen: Cruz Ramos PA-C 12/17/2024 21:08 Chief Complaint Pt. reports left sided abdominal pain radiates to her right flank area. Pt. stated she feels off balance . No neurological deficit. AOx4. History of Present Illness Patient is a 44-year-old female with PMH of endometriosis, GERD, MALS that presents today for evaluation of her left upper abdominal pain and the left flank pain. 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 She states that her pain is chronic but acutely worsening over the last day. She did feel a little off balance today as well. Denies any chest pain or shortness of breath. She has had some nausea and vomiting. Denies any dysuria, frequency, urgency. She has had some diarrhea which she deals with chronically. Review of Systems No other aggravating or relieving factors no other associated symptoms no other prior treatments orcomplaints. Family: Reviewed and noncontributory Social: lives at home Review of systems negative unless otherwise specified in the HPI. Physical Exam Vitals & Measurements T: 36.7 ???C(Oral) HR: 64(Monitored) RR: 18 BP: 149/97 SpO2: 100% HT: 170 cm WT: 61 kg BMI: 21.11 General: The patient appears well and in no apparent distress. Patient is resting comfortably on cart. Skin: Warm, dry, no pallor noted. Head: Normocephalic, atraumatic Neck: No JVD Eye: PERRLA, EOMI ENT: Moist mucus membranes Cardiovascular: Regular rate and rhythm. Normal peripheral perfusion Respiratory: CTA bilaterally. No respiratory distress no accessory muscle use no obvious audible wheezing Chest Wall: no deformity Musculoskeletal: normal ROM, no deformity, no swelling GI: Soft no obvious distention. No rebound or rigidity. No guarding. Diffuse upper abdominal tenderness extending into the left flank. Neurological: A&O moves all extremities equal strength and symmetry Psychiatric: Cooperative and appropriate Medical Decision Making Patient is a 44-year-old female with PMH of endometriosis, GERD, Mouser presents today for evaluation of her left upper abdominal pain and left flank pain. She is awaiting a procedure for her MALS mady couple of months with GI. Her chronic pain has acutely worsened over the last day today. Also felt a little off balance today. On exam patient is afebrile and nontoxic-appearing. She is not tachycardic or hypotensive. No tachypnea. SpO2 100% on room air. CTA bilateral lung norton. RRR. Diffuse upper abdominal tenderness extending into the left flank. Manger of the abdomen soft nontender with noInsa guarding or distention. Labs demonstrate mild leukocytosis of 11.2 with left shift. Remaining labs are WNL. UA negative for UTI. CT of the abdomen and pelvis interpreted by stat radiology demonstrates 1.4 cm right renal cyst. 0.4 cm hypodensity right hepatic lobe likely representing a cyst. 2 x 1.8 cm right ovarian cyst. Uterus surgically absent. Fullness of cervix. Normal kidneys. Wall thickening versus underdistention involving descending colon. Patient was given a dose of Toradol and Reglan with improvement. Symptoms likely secondary to colitis and MALS. She will be discharged home with close follow-up with her PCP and GI specialist. Will treat symptomatically with Bentyl, naproxen,Zofran and Phenergan. We discussed if she has new or worsening symptoms she should promptly return to the ED for reevaluation. Return to ED precautions were reviewed with the patient at length. Assessment/Plan Abdominal pain (R10.9: Unspecified abdominal pain) Colitis (K52.9: Noninfective gastroenteritis and colitis, unspecified) Diarrhea (R19.7: Diarrhea, unspecified) Orders: dicyclomine, 10 mg = 1 cap(s), Oral, QID, X 7 day(s), # 28 cap(s), Refills(s) 0, Pharmacy: [facility]/pharmacy #[id number], 170, cm, 12/17/24 21:07:00 EDT, Height/Length Dosing, 61, kg, 12/17/24 21:07:00 EDT, Weight Dosing ketorolac, 30 mg = 1 mL, Injection, IV Push, Once, Stop date 12/17/24 21:35:00 EDT, STAT, Start date 12/17/24 21:35:00 EDT, 12/17/24 21:35:00 EDT metoclopramide, 10 mg = 2 mL, Injection, IV Push, Once, Stop date 12/17/24 21:35:00 EDT, STAT, Start date 12/17/24 21:35:00 EDT, 12/17/24 21:35:00 EDT naproxen, 500 mg = 1 tab(s), Oral, BID, X 10 day(s), # 20 tab(s), Refills(s) 0, [id number] 170, cm, 12/17/24 21:07:00 EDT, Height/Length Dosing, 61, kg, 12/17/24 21:07:00 EDT, Weight Dosing ondansetron, 4 mg = 1 tab(s), Oral, q6hr, PRN Nausea/Vomiting, # 12 tab(s), Refills(s) 0, [id number], 170, cm, 12/17/24 21:07:00 EDT, Height/Length Dosing, 61, kg, 12/17/24 21:07:00EDT, Weight Dosing promethazine, 25 mg = 1 tab(s), Oral, q4hr, PRN Nausea, # 12 tab(s), Refills(s) 0, [id number], 170, cm, 12/17/24 21:07:00 EDT, Height/Length Dosing, 61, kg, 12/17/24 21:07:00 EDT, Weight Dosing Basic Metabolic Panel CBC w/ Auto Diff CT Abdomen/Pelvis w/ Contrast eGFR Extra Blue Tube Extra SST Tube (more content not included)...[facility] Comment on above:Result Comment: Electronically Signed By: Cruz Ramos PA-C\.br\Date and Time Signed: 12/18/2499:01 EDT\.br\Electronically Co-Signed By: Hans Latham DO\.br\Date and Time Co-Signed: 12/18/2500:58 EDTBMPon 65-10-8242Gvkoo gap [Moles/Vol]11 mmol/LNormal6-16[facility] Comment on above:Performed By: #### [id number] #### [facility] [address] [place], [place] [address]FMI/Creat Ratio25 No MfesyDdsc81-41OyagtqGeorgetown Behavioral Hospital Comment on above:Performed By: #### [id number] #### [facility] [address] [place], [place] [address]Qwxgcyp [Mass/Vol]9.5 mg/dLNormal8.9-11.1FMercy Health Willard HospitalComment on above:Performed By: #### [id number] #### [facility] [address], [place] [address]Avhqkntv [Moles/Vol]105 mmol/UFqcfod314-645NxgvigGeorgetown Behavioral HospitalComment on above:Performed By: #### [id number] #### [facility] [address] [place], [place] [address]ZZ1 [Moles/Vol]26 mmol/GYivyhn89-90UwyiscGeorgetown Behavioral Hospital Comment on above:Performed By: #### [id number] #### [facility] [address] [place], [place] [address]Zukvncoesk [Mass/Vol]0.8 mg/dLNormal0.5-1.3FMercy Health Willard HospitalComment on above:Performed By: #### [id number] #### [facility] [address], [place] [address]Ugjayoi [Mass/Vol]100 mg/dOVkiwfv23-898PoxdroGeorgetown Behavioral HospitalComment on above:Performed By: #### [id number] #### [facility] [address], [place] [address]Iebzgymvv [Moles/Vol]4.3 mmol/LNormal3.5-5.3FMercy Health Willard HospitalComment on above:Performed By: #### [id number] #### [facility] [address], [place] [address]Wpywqu [Moles/Vol]138 mmol/MIpjiwl868-679YqcyrfGeorgetown Behavioral HospitalComment on above:Performed By: #### [id number] #### [facility] [address], [place] [address]Tkvc nitrogen [Mass/Vol]20 mg/dLNormal5-21[facility] HospitalComment on above:Performed By: #### [id number] #### [facility] [address] [place] [address]WKO w/ Auto Diffon [id number] Absolute0.0 E9/LNormal 0.0-0.2FMercy Health Willard HospitalComment on above:Performed By: #### [id number] #### [facility] [address] [place] [address]Xnbspbvxt/100 WBC (Bld)0.4 %Normal0.0-2.0[facility] HospitalComment on above:Performed By: #### [id number] #### [facility] [address] [place] [address]Beg Absolute0.1 E9/LNormal0.0-0.5FMercy Health Willard Hospital Comment on above:Performed By: #### [id number] #### [facility] [address] [place] [address]Mfkfxmhzwac/100 WBC (Bld)0.9 %Normal0.0-8.0[facility] HospitalComment on above:Performed By: #### [id number] #### [facility] [address] [place] [address]Mzcamnvpxiq distribution width (RBC) [Ratio]13.0 %Normal 10.9-14.2FMercy Health Willard HospitalComment on above:Performed By: #### [id number] #### [facility] [address] [place] [address]Wznrhyhwwy (Bld) [Volume fraction]40.4 %Hfnzdc68.0-46.0[facility] HospitalComment on above:Performed By: #### [id number] #### [facility] [address] [place] [address]Jafvvzanej (Bld) [Mass/Vol]14.0 g/lKZgrkpt67.0-16.0[facility] HospitalComment on above:Performed By: #### [id number] #### [facility] [address] [place] [address]Fuqut Absolute2.1 E9/LNormal1.0-4.0[facility] Comment on above:Performed By: #### [id number] #### [facility] [address] [place] [address]Wyoqcjjynrf/100 WBC (Bld)18.6 %Crbehj72.0-50.0[facility] HospitalComment on above:Performed By: #### [id number] #### [facility] [address] [place] [address]IMM (RBC) [Entitic mass]31.0 liZuzntf11.0-34.0[facility] HospitalComment on above:Performed By: #### [id number] #### [facility] [address] [place] [address]NNGE (RBC) [Mass/Vol]34.7 g/dJYmrtju15.4-36.0[facility] HospitalComment on above:Performed By: #### [id number] #### [facility] [address] [place] [address]HFQ (RBC) [Entitic vol]89.3 vBLtcbyi70.0-100.0[facility] HospitalComment on above:Performed By: #### [id number] #### [facility] [address] [place] [address]Unry Absolute0.6 E9/LNormal0.2-1.0[facility] Comment on above:Performed By: #### [id number] #### [facility] [address] [place] [address]Ytkyjxfjo/100 WBC (Bld)5.2 %Normal4.0-14.0[facility] HospitalComment on above:Performed By: #### [id number] #### [facility] Laboratory [address] [place] [address]Ovydwg Absolute8.4 E9/LHigh2.0-7.5FMercy Health Willard Hospital Comment on above:Performed By: #### [id number] #### [facility] [address], [place] [address]Woundk Auto74.9 %Onpqms02.0-75.0[facility] Comment on above:Performed By: #### [id number] #### [facility] [address] [place] [address]Ofazxqos243.0 E9/DQeiloj272.0-500.0[facility] Comment on above:Performed By: #### [id number] #### [facility] Laboratory [address] [place] [address] 39231Diatrfgh mean volume (Bld) [Entitic vol]9.0 fLNormal6.4-10.8 [facility] HospitalComment on above:Performed By: #### [id number] #### [facility] Laboratory [address] [place] [address] 89477RJI7.5 E12/LNormal4.3-5.9[facility] HospitalComment on above:Performed By: #### [id number] #### [facility] Laboratory [address] [place] [address] 73493OCY81.2 E9/LHigh4.0-11.0[facility] HospitalComment on above:Performed By: #### [id number] #### [facility] Laboratory [address] [place] [address]1888YV Clinical Summaryon [id number] Clinical SummaryED Clinical Summary [address] [address] ED Clinical Summary Person Information Name: NIKKI MARTINS [place] Age: 44 Years : 1980 Sex: Female Language: Swiss PCP: CYNDI EPPERSON CNP Marital Status: Visit Id: Visit Reason: Medical problem - major; Flank pain; Abdominal pain; LEFT FLANK PAIN, FEELS OFF BALANCE Speciality: Acuity: 3 Enc Type: Emergency Med Service: Emergency Arrival: 12/17/2024 20:52:54 Discharge: 12/17/2024 23:53:54 LOS: 000 03:01 Checkin: 12/17/2024 20:52:54 Checkout: 12/17/2024 23:53:54 Dispo Type: Home (Routine DC) EVENTS: Event Name Event Status Request Date/Time Start Date/Time Complete Date/Time Arrive Complete 12/17/2024 20:52:54 12/17/2024 20:52:54 12/17/2024 20:52:54 Document Home Meds Request 12/17/2024 20:52:54 Triage Complete 12/17/2024 20:52:54 12/17/2024 21:07:29 12/17/2024 21:07:29 Registration Complete 12/17/2024 20:55:34 12/17/2024 20:55:34 12/17/2024 20:55:34 Reg Complete Request 12/17/2024 20:55:34 Reg Bed Request Complete 12/17/2024 20:55:34 12/17/2024 20:55:34 12/17/2024 20:55:34 Bed Assign Complete 12/17/2024 20:55:55 12/17/2024 20:55:55 12/17/2024 20:55:55 Dr Exam Complete 12/17/2024 20:55:55 12/17/2024 21:08:42 12/17/2024 21:08:42 RN Exam Complete 12/17/2024 20:55:55 12/17/2024 21:38:05 12/17/2024 21:38:05 Registration Request 12/17/2024 21:08:42 Dr Exam Complete 12/17/2024 21:10:50 12/17/2024 21:10:50 12/17/2024 21:10:50 CT Complete 12/17/2024 21:26:24 12/17/2024 21:35:36 12/17/2024 22:12:58 Pending Labs Complete 12/17/2024 21:26:24 12/17/2024 23:11:43 Lab Complete 12/17/2024 21:26:24 12/17/2024 22:00:33 Meds Admin Cancel 12/17/2024 21:26:24 12/17/2024 21:34:35 Pending Labs Cancel 12/17/2024 21:29:44 12/17/2024 21:38:43 Lab Cancel 12/17/2024 21:29:44 12/17/2024 21:38:43 Urine Collect Cancel 12/17/2024 21:29:44 12/17/2024 21:38:43 Meds Admin Complete 12/17/2024 21:35:18 12/17/2024 21:45:51 Pending Labs Complete 12/17/2024 21:37:13 12/17/2024 21:37:13 12/17/2024 22:00:33 Lab Complete 12/17/2024 21:37:13 12/17/2024 21:37:13 12/17/2024 22:00:33 Pending Labs Complete 12/17/2024 22:21:30 12/17/2024 22:21:30 12/17/2024 22:21:31 Discharge Complete 12/17/2024 23:34:45 12/17/2024 23:53:59 12/17/2024 23:53:59 Transfer Complete 12/17/2024 23:53:59 12/17/2024 23:53:59 12/17/2024 23:53:59 ADDRESS: [address] [place] [phone] PHYS DOC NOTES: MEDICAL INFORMATION: Prescriptions Given: New Medications [facility]/pharmacy #[id number], [address], [place] [id number], [phone] naproxen (naproxen 500 mg Tab) 1 Tablets By Mouth 2 times a day for 10 Days. Refills: 0. promethazine (promethazine 25 mg Tab) 1 Tablets By Mouth every 4 hours as needed Nausea. Refills: 0. Medications to Continue Taking That Have Changed [facility]/pharmacy #[id number], [address], [place] [id number], [phone] START: dicyclomine (Bentyl 10 mg Cap) 1 Capsules By Mouth 4 times a day for 7 Days. Refills: 0. START: ondansetron (ondansetron 4 mg Dis Tab) 1 Tablets By Mouth every 6 hours as needed Nausea/Vomiting. Refills: 0. Other Medications START: dicyclomine (dicyclomine 10 mg Cap) START: ondansetron (Zofran 4 mg Tab) 1 Tablets By Mouth every 8 hours as needed Nausea/Vomiting. Refills: 3. START: ondansetron (Zofran ODT 4 mg Tab-Dis) 1 Tablets By Mouth 3 times a day. Refills: 0. Medications to Continue with No Changes Other Medications amitriptyline (amitriptyline 50 mg Tab) 1 Tablets By Mouth once a day (at bedtime). Refills: 3. cyanocobalamin (Vitamin B12) ergocalciferol (Vitamin D) By Mouth every week. omeprazole (omeprazole 20 mg Cap-DR) 2 times a day. omeprazole (omeprazole 40 mg Cap-DR) 1 Capsules By Mouth every day. Refills: 3. polyethylene glycol 3350 (Miralax 3350 17 gram packet) 17 Gram By Mouth every day. Refills: 6. psyllium (Metamucil 3.4 g/5.2 g oral powder) 3.4 Gram By Mouth 3 times a day as needed for constipation. Refills: 6. PATIENT EDUCATION INFORMATION: Instructions: Colitis; Abdominal Pain, Adult Follow up: With: Address: When: Shu Mcmahon [address] [place] [address] [address] [place] [phone] [employer] (1) In 3 days 12/20/2024 Comments: Please call gastroenterology office for close outpatient follow-up. Take medication as prescribed. Continue to hydrate. Return to ED if symptoms worsen or new symptoms arise. With: Address: When: CYNDI EPPERSON [address], [place] [phone] [employer] (1) In 3 days 12/20/2024 DIAGNOSIS: Abdominal pain; Colitis; DiarrheaNormalFisher [facility] Patient Summaryon [id number] Patient SummaryED Patient Summary [address] [address] Patient Discharge Instructions Person Information Name: NIKKI MARTINS Age: 44 Years Arrival Date: 12/17/2024 20:52:54 Discharge Diagnosis: Abdominal pain; Colitis; Diarrhea Primary Care Physician: CYNDI EPPERSON CNP Provider Information Primary Provider: Hans Latham DO Advanced Temporary Administrative Assistant:Cruz Ramos PA-C The exam and treatment you received in the Emergency Department were for an urgent problem and are not intended as complete care. It is important that you follow up with a doctor, nurse practitioner,or physician???s clinical trial assistant for ongoing care. If your symptoms become worse or you do not improve asexpected and you are unable to reach your usual health care provider, you should return to the Emergency Department. We are available 24 hours a day. NIKKI MARTINS has been given the following list of patient education materials, prescriptions and follow-up instructions: Follow-up Instructions: With: Address: When: Shu Mcmahon [address] [place] [address], [facility] [address] [place] [phone] [employer] (1) In 3 days 12/20/2024 Comments: Please call gastroenterology office for close outpatient follow-up. Take medication as prescribed. Continue to hydrate. Return to ED if symptoms worsen or new symptoms arise. With: Address: When: CYNDI EPPERSON [address], [place] [phone] [employer] (1) In 3 days 12/20/2024 In the event that this physician does not participate in your insurance network, please consult with your insurance company to find a nearby participating provider. Patient Education Materials: Colitis; Abdominal Pain, Adult A MESSAGE TO ALL PATIENTS REGARDING OPIOIDS PRESCRIPTION OPIOIDS: WHAT YOU NEED TO KNOW Prescription opioids can be used to help relieve fzqzhhqa-rw-zaawbd pain and are often prescribed following a [...] as well, even when taken as directed: ??? Tolerance???meaning you might need to take more of the medication for the same pain relief ??? Physical dependence???meaning you have symptoms of withdrawal when a medication is stopped ??? Increased sensitivity to pain ??? Constipation ??? Nausea, vomiting, and dry mouth ??? Sleepiness and dizziness ??? Confusion ??? Depression ??? Low levels of testosterone that can result in lower sex drive, energy, and strength ??? Itching and sweating RISKS ARE GREATER WITH: ??? History of drug misuse, substance use disorder, or overdose ??? Mental health conditions (such as depression or anxiety) ??? Sleep apnea ??? Older age (65 years and older) ??? Avoid alcohol while taking prescription opioids. Also, unless specifically advised by your health care provider, medications to avoid include: ??? Benzodiazepines (such as Xanax or Valium) ??? Muscle relaxants (such as Soma or Flexeril) ??? Hypnotics (such as Ambien or Lunesta) ??? Other prescription opioids KNOW YOUR OPTIONS Talk to your health care provider about ways to manage your pain that don???t involve prescription opioids. Some of these options may actually work better and have fewer risks and side effects. Options may include: ??? Pain relievers such as acetaminophen, ibuprofen, and naproxen ??? Some medication that are also used for depression or seizures ??? Physical therapy and exercise ??? Cognitive behavioral therapy, a psychological, goal-directed approach, in which patients learn how to modify physical, behavioral, and emotional triggers of pain and stress. IF YOU ARE PRESCRIBED OPIOIDS FOR PAIN: ??? Never take opioids in greater amounts or more often than prescribed. ??? Follow up with your primary health care provider. o Work together to create a plan on how to manage your pain. o Talk about ways to help manage your pain that don???t involve prescription opioids. o Talk about any and all concerns and side effects. ??? Help prevent misuse and abuse o Never sell or share prescription opioids. o Never use another person???s prescription opioids. ??? Store prescription opioids in a secure place and out of reach of others (this may include visitors, children, friends, and family). ??? Safely dispose of unused prescription opioids: Find your community drug t (more content not included)...NormalGeorgetown Behavioral HospitalExtra Blueon 86-61-7565Kkmh Collected PlasmaYesInvalid Interpretation CodeGeorgetown Behavioral HospitalComment on above:Performed By: #### [id number] #### [facility] Laboratory [address], [place] [address]Nyx Func Panelon 01-85-3885Vfeitxc [Mass/Vol]4.7 g/dLNormal 3.3-5.0[facility] HospitalComment on above:Performed By: #### [id number] #### [facility] Laboratory [address], [place] [address]Mqtrhvq/Globulin [Mass ratio]2.1 {ratio}Normal1.1-2.2FMercy Health Willard HospitalComment on above:Performed By: #### [id number] #### [facility] [address], [place] [address]Iko Phos31 Int._Unit/AItjoqh15-12HmniayGeorgetown Behavioral Hospital Comment on above:Performed By: #### [id number] #### [facility] [address], [place] [address]LCX71 Int._Unit/LNormal6-46[facility] HospitalComment on above:Performed By: #### [id number] #### [facility] [address], [place] [address]JKP85 Int._Unit/LNormal5-43[facility] HospitalComment on above:Performed By: #### [id number] #### [facility] [address], [place] [address]Kvhj Direct0.1 mg/dLNormal0.0-0.4FMercy Health Willard Hospital Comment on above:Performed By: #### [id number] #### [facility] [address], [place] [address]Vlrl Indirect0.4 mg/dLNormal0.1-0.9[facility] Comment on above:Performed By: #### [id number] #### [facility] Laboratory [address], [place] [address]Xzis Total0.5 mg/dLNormal0.0-1.1FMercy Health Willard Hospital Comment on above:Performed By: #### [id number] #### [facility] [address], [place] [address]Myepqyfb (S) [Mass/Vol]2.2 g/dLNormal1.4-4.0[facility] HospitalComment on above:Performed By: #### [id number] #### [facility] Laboratory [address], [place] [address]Uqrvrit [Mass/Vol]6.9 g/dLNormal6.0-7.8[facility] HospitalComment on above:Performed By: #### [id number] #### [facility] [address], [place] [address]Ieiuvv Levelon 50-34-4901Yydyfq Lvl30 unit/NZwdjop52-72CboguaGeorgetown Behavioral HospitalComment on above:Performed By: #### [id number] #### [facility] [address], [place] [address]HZ with Cult Rflxon 44-39-9541Tkspc (U)ColorlessAbnormalYellow [facility] HospitalComment on above:Result Comment: Microscopic readings are only performed on those samples that meet specific criteria set forth by [facility].Performed By: #### [id number] #### [facility] [address], [place] [address]Pjtnzwx (U) [Mass/Vol]NegativeNormalNegativeGeorgetown Behavioral HospitalComment on above:Performed By: #### [id number] #### [facility] [address], [place] [address]Xyozmbx Ql (U)NegativeNormalNegativeGeorgetown Behavioral Hospital Comment on above:Performed By: #### [id number] #### [facility] [address], [place] [address]GP BloodNegativeNormalNegativeGeorgetown Behavioral Hospital Comment on above:Performed By: #### [id number] #### [facility] [address], [place] [address]RX ClarityClearNormalClearGeorgetown Behavioral HospitalComment on above:Performed By: #### [id number] #### [facility] [address], [place] [address]WX Leuk EstNegativeNormalNegativeGeorgetown Behavioral Hospital Comment on above:Performed By: #### [id number] #### [facility] [address], [place] [address]CE MucousNegativeNormalNegSt. Francis Hospital Comment on above:Performed By: #### [id number] #### [facility] [address], [place] [address]ZG NitriteNegativeNormalNegSt. Francis Hospital Comment on above:Performed By: #### [id number] #### [facility] [address], [place] [address]CU pH5.5Invalid Interpretation Code5.0-9.0[facility] HospitalComment on above:Performed By: #### [id number] #### [facility] [address], [place] [address]SZ ProteinNegativeNormalNegSt. Francis Hospital Comment on above:Performed By: #### [id number] #### [facility] [address], [place] [address]OV HYW8-8Biuhpl9-9Wadmsc [facility] Medical CenterComment on above: Performed By: #### [id number] #### [facility] [address], [place] [address]IR Spec Grav1.035Invalid Interpretation Code1.005-1.030[facility] HospitalComment on above:Performed By: #### [id number] #### [facility] [address], [place] [address]PK Squam Epithelial3-4Invalid Interpretation CodeGeorgetown Behavioral HospitalComment on above:Performed By: #### [id number] #### [facility] Laboratory [address], [place] [address]AN UrobilinogenNegativeNormalNegativeGeorgetown Behavioral HospitalComment on above:Performed By: #### [id number] #### [facility] Laboratory [address], [place] [address]TS WVB9-2Ghfnjs7-9Tvaqik [facility] CenterComment on above: Performed By: #### [id number] #### [facility] Laboratory [address], [place] [address]Tjqbguhxbapg (U) [Mass/Vol]NegativeNormalNegativeGeorgetown Behavioral HospitalComment on above:Performed By: #### [id number] #### [facility] [address], [place] [address]XE Spec DescClean CatchNormalGeorgetown Behavioral HospitalComment on above:Performed By: #### [id number] #### [facility] Laboratory [address], [place] [address]dNWYjo 43-23-1020lGKF34 mL/min/1.73 o8Wxqygy>=59[facility] HospitalComment on above:Performed By: #### [id number] #### [facility] [address], [place] [address]Gs Panel Informationon 93-17-4937FSGL7CRSL IhujpiztcjHNNI8HDN COMMENTSALT LAKE REGIONAL [facility]ENTER PokmzqxchvCRZK4RNCAMGY HealthcareSURGICAL PATHOLOGY EXAMon 89-25-6166JOQI0Vhtcyiptr report.totalSALT LAKE REGIONAL [facility]ICAL CENTER DigpmsavpdMFWU3Tdgaviae Pathology Case: [id number] YvnxfwrjdaDNUZ8Rhanwuoeulz Provider: Bisi Pena MD Collected: 09/14/2024 100[address]NONY KkwxaysswgZTDW0Lofoukrk Location: [facility] Received: 09/14/2024 110[address] ZevnjuhmetBPKY8Oxtpylrabmm: Ciaran Nieves MD PhDSSM Health CareNqwgwxcrrdAZVU6Qlmvsgtea: A) - DUODENUM SECOND PART BIOPSY, COLD BIOPSYCox NorthGawfeqxpduXCAQ7L) - STOMACH ANTRUM BIOPSY, COLD BIOPSYSSM Health CareTdezrqzxelKXSV4Xdqx report.final diagnosisSSM Health CareRG1A. Duodenum, Second Part, Biopsy:SSM Health CareR-- Duodenal mucosa with focal gastric mucin-cell metaplasia. No intraepithelial lymphocytosis. Normal villous architecture.Cox NorthDfuxijagguFYTS8T. Stomach, Antrum, Biopsy:[place] [address] -- Normal antral and oxyntic mucosa. No Helicobacter organisms are identified. [place] [address]GffkivxlhtMDKK2Sqdxyzdfwyvhgb signed by Ciaran Nieves MD PhD on 09/24/2024 at [address] [place] [address]OpivnrqxzlQXUJ2Gdxjdilmpi commentSteven [place]ille [address]By the signature on this report, the individual or group listed as making the Final Interpretation/Diagnosis certifies that they have reviewed this case.SSM Health CareIwjyazcmtaCLGO2Ctid report.relevant HxSSM Health CareZzakptrpkgWZTT6Q05.13 - Abdominal pain, acute, epigastric [ICD-10-CM]SSM Health CareRG1A) rule out celiacSSM Health CareRG1B) rule out H.pyloriSSM Health CareTazrudotloRXCD8Abdv report.gross observationResearch Belton HospitalG1A: Received in formalin, labeled with the patient's name and hospital number and specimen 1 cold biopsy , are multiple fragments of castelan, soft tissue aggregating to 0.9 x 0.3 x 0.3 cm. The specimen is submitted in toto in one cassette.[place] [address]B: Received in formalin, labeled with the patient's name and hospital number and specimen 2 cold bi opsy , are multiple fragments of castelan, soft tissue aggregating to 0.9 x 0.6 x 0.3 cm. The specimen is submitted in toto in one cassette.Cox NorthOriginal Ordering Provider: BISI FRANCES Healthcarergical pathology study Ordered By: Ciaran Nieves on 22-61-0777Yqculcrrhv comment [employer] (Report) w3ndpNHjYJMay5ivLMLuaQZkHiByNaQxEdOcEjhfaSBrWMeyddNjMMjlu2ScH8RxVwNnJPtlnaXmKKDe YfxwpktnWMZjIAW3npLs JSYiCTivCSDlYRtmDn9blFCfnFqmNoYaXPEyt5kwmoJIWIfoEUXGIHd6b4tnEHYyEjS3wBRnJDuqK9us axDvsTFmN4Iev9IwXQb1 yT07JTNgkZ6emTJmNXgtkyZsQqR9CTzkCMOzHaO9AGNniTUaKUHmK9ohMLXoOWwtTMIgNCmgdFTzAVL0 iWger9U1cLAfoSRlkQww CfBfApGtWhSYk2AzMVl5xYaoV0MgEDLzFyF2mRNvQSGfRKalLBGaKIRgozN9uJ31KFypamI0vSSpg3Il q05ce331uE8ccXHuZII6 UFKqFKAgvNPgTFMsYCC7ZNAynDUjT8rbCrZmeIGlZ9MrZzDnyWMmX2RkKdQdlINfL7SyJmFiyGDeVYZv dKW6SYseu759SCD3PoSg LA2hO7Rry1F6aQ7ovMXgNWSroAKnIuGhXDLyfl8nvVBxVAoms1DtTKH4kzO9cQJgpSZaCWCdJE92Zsyx m5CzEuouJRY4DZIstcNw a9Cyb9jmWoDkkvAqG5rbS5SrQBLtCRExBDMzLfAabgJld6Qte9YwlREqwLt6f0knZOJiRTGmdWcnt8fd GUC3BTMxI5K8tZGru0tu GLezVYTgkYK5mgD4DHkwUUOrskQ5nkX8GVbgJARmnFE7waQ4RJvrIRAnLhI0tnX4PDznETHoODC1PoVj HDMon5AefzeqZuUha3Sn zZSjZJakQ98lm811IIRfbjIgV4lmlLVohfyhdQItikjdNJrbduC4HAWzZBGwIWtgAHGnBYUxGxZpwCAu ZzEwMzNcaGljaFxmMVxk AeYoVLApJQioK6lvPrIcAcEkEDRBnYR1jJIqi8skvyS5bIJfJT3pBOGoqMNlzxYgb7O9LJP2cXZsxY4q gGLuBOWozHLybgQqah32 vQYpuBV4KGIdLXXdqNItoY4qWJUfUEVOnI2ydTUBiuAzdqNeGMIgnZmdwf4YkNUjrp1jnYZqY7VbaQfh oAGkJVHnSVLgwYdtnPPcOEGnAHRhzccys8BdMKJgbFKvJ7SwFP0fTDItyy14Vtljremdna [facility] Work Phone: Pathology report Cancer NarrativeSurgical Pathology Case: [id number] Authorizing Provider: Bisi Pena MD Collected: 09/14/2024 1009 Ordering Location: [facility] Received: 09/14/2024 1107 Pathologist: Ciaran Nievse MD PhD Specimens: A) - DUODENUM SECOND PART BIOPSY, COLD BIOPSY B) - STOMACH ANTRUM BIOPSY, COLD BIOPSY [facility] Work Phone: Pathology report final diagnosis Narrative u2lqiMHxUVFeqLHpKFJeTHpotvBzJIAzuYKkV8KwgqefLLvaRE4fIG2qdVfazKEzrCBnHJXfQeKyw4nd u402xYIjh4smKAIVjpxx rZe7bSmoE01en0V4JqnlW3xzXTBiUDfjKQIlMFimuTCyESm7WEFovQKxkzPgHzTdAPJibMOtbNK8DITs IV9mqmgjUUhoYKopLOZj leK2BMNtmFXmE8WxITKnJT9uwbwkBYU6IEtyGCZsVRT3JmYuSTSgs2Sfjon4PzEfqGu8x6ffGNUaLNMp pPksf4gpCAC6RFKsmGOw O1ivpO1kPPEbWL0rzgevn4nsOHwfXZuwGTNgzWM7buE2JKBgkQGyO2PffY5xMSNzECTfceIfdGnujE0z UxflzzGhZBWyAIF6z0Jj auBvNNQLWVDnczVzYNHbxXuzGreajXU7McfbMLJpFABpqeWaLFNXoI1uUQ2rcHDubRMnn4Cvp4c8aVAg c2NuxTFdRHA0wdogBX52 R8pvRZNmzTejhEM3UXWlRIUeZC2qVe2rxK94srUvaFw8nCWmjGBqZHa4aCFmc6S1bS2ydOAhPP5lbr6g xXD5gHctr2MdKEFoU2ne gQRceJBhWM6yzPAxWPLwwopyUJJbRZU0z57wS7srQSRllRR2fKhaAirwcYI5KtlrTEVbTCYxqgxwGETe KTKrFHMsFYGaH1CiBW5i fu8mvVBrduOeSTndIX1zMV77lT49pWVjhFJjy8UrRqDMvgONYVloK54zSSW2JKZix2LzFW6al72zFPSi TBOuCPQazSbciTNfOlpxDSJ6Dkjyxeizau [facility] Work Phone: Pathology report gross observation Narrative j2rgxFYvLYMuoYHrBGKtGAlwwyRpRMBbbLNqB8PyqeniEIoxMU7dDX2woLodzKRrrMGsCHYyVuUop4mw q287uNHse2tuDCHFfuej eFj1mJyhS55oc9T9XowfN11ydJOaJHC0GQVzVINguJWoAFGuAOF7ZEQugSBpF7fbFTUcDK5dfvtyLUwa UAjdIMMcuOI7RCJdrAOr I1BvVSGpLEpyXEVgqzc6MnPgAt6rcXPjkOrzDUihGclsdUpaf7DplUQsRZceHAFeKKCqCJapedorDWt7 NKMtIZllmBQcLQ6rzDfe YeqtiYjpp7NzuDWsPXmfIIYrGSLtPDmxLYOsR7OQDMReFnr5IhdrAGPoCIo6JHl9NL0QZaKrCAQpOUW8 MIceXoXvUCf5MSqbHP3L SIO3ElH8MhM7YHYxRLXcVUniFRrexORoKSAnGaWtFFGzRQVbABqmkAIpJH5cNWglUwA3KSAlvtNrn8Or MFxlcGljWHNiMzBccGxh yT0qKsJnJTVDZeMOYROmvYPwLESshhSbw0AcZZgyfuwnzUVtLCjqJRX5iWYcSDSsNLHsQKUmIQ33M3Kt daYpINPuylZerJ3cwIs5 QOqbbxTpEtYrNULaHJFss8KdI2pdDX8eTCQwe9kbPIKrf4DliBKfGZQxDWXonUh6mBUnRVPfyaVaeEKj oEPyr8VdlLLrWDWnr4K3 HLJou5P2SFQfM2xkPBkltVybOiE1ofNhZopanFTzHkYugEZqEiOfM11wJVLoIOYrgPQmwL8xmxQgaqLd vPUpdAJ6QADafH4ufY54 bpLwrxOrdvGsR2Xwz7D4lPPxHNPafnsbDWTbOZCdSyWcTXRvK4bcIYDsFWcDR7ofXSBaI2WlU0NeobC1 ILUsloumVcanfSdyo3Ha wGVaJGshJJKbZUIgNJsyDQEqH9AMEHJpXjy8XdltOLCzAOv8ZLx8DP6ZCpMnSWSqAUB6DCupYLTaBTa9 DEamYX4YVEG7KcO2KbIe NZUdBVDkZPecGQsjwFGxETOqAaLhZVMrYLXjZRuupTUaUD8fRUlhSqR7AHJrqgLpt3ZmYvQlLUPmX8wi YjEzNVxwbGFpblxmczIw PWR8PYQbO1GgaxPiEItgPCYmel7lkJshNKKoSXEynNYlADwypVhavOxgUZBqnWsvggAxttIfIV4iQOHn AUZcj4SdgNFbuLGkrC7u UJDiBO6iFZTgeLTzyG0vubSbLFJqrCLdYcllqTY5EoojQKRuWM73aCYpoXinITOpKHdvWX18qeJaEeA9 WI5kDXKwLyPsgKkjx7Ln DDGxV0JxG0N8sY3yUICrNHZpJUI1ORNxOfT0ZQYuEkWnoF6qQPwgBWDqJLYhwLUcZTxnYQB9Ww9joFVo LGAycdA5y0CiMLqdWX5z XAWzDXPuKLM5AE0gdYDmFXEqpyHvx0XiRNpmiRanNVYtAqQyQmeDc7lxuAwyn5AbaLMiDP61BLDtbASv NUI5XO7oeEyiLBM7GwpaexkpceK[facility]tering Health [facility] Campus Work Phone: Pathology report relevant history Narrative u8tehWBgZHYxbBZzQPNxBYipxaQiMUNctFJnD2CgraxgAMvtIV8pSC4ptFfslZDqmYPeMUXnFuZts5kh d894cDRua2wlCHMZznja bSh2kGfcO84cm1I3CzowE82dgJVmUEF9JCPaZMUvyGEaGBYmYYO5TMNexIVfW2tpPQPeXZ6vqlinIZkx EGeaTABorCD0JXRomPHg D0NrMTHuYSyhQVSvyka7BqOuUo4goHWnkPfkFQisERJoKHRbAGvtHSOgTeZzUcYuLuWmQN1qHKTay06b kkJwRXTmdC7iWIHqoPWe OADenNpzYMI9jgajVNrCR9FgVJJwC82xBBMfolypGVFjRWllzxPmPZKnrJJpR6BhvVFlYVGarjQYSCBu gCibYC56nSQSAwB7qM0akIomANJ8Etigigsxlc [facility] Work Phone: [facility] Work Phone: [facility] [phone]oyTpfxl formatting from the original result was not included. Impression The esophagus appeared normal. The stomach appeared normal. Performed random biopsy to rule out H. pylori. The duodenum appeared normal. Performed random biopsy to rule out celiac disease. Endoflip impedance planimetry showed a normal EGJ opening with EGJ-DI at 6.1 mm2/mmHg and maximum EGJ diameter at 17.8 mm. Contractility pattern was normal contractile response (NCR). Findings The Endoflip impedance planimetry system was utilized to assess distensibility and secondary peristalsis. Results Below: Placement time:1015 Removal time: Lower esophageal sphincter measurement (cm):40 Balloon Volume (mL):50 Diameter (mm): 16.1 Distensibility (mm2/mmHg): 7.1 Pressure (mm/Hg): 28.28 Balloon Volume (mL):60 Diameter (mm): 17.8 Distensibility (mm2/mmHg): 6.1 Pressure (mm/Hg): 41.0 Balloon Volume (mL):70 Diameter (mm): 16.3 Distensibility (mm2/mmHg): 4.4 Pressure (mm/Hg): 47.7 Balloon Volume (mL): 70 Diameter (mm): Distensibility (mm2/mmHg): Pressure (mm/Hg): The esophagus appeared normal. The stomach appeared normal. Performed random biopsy using biopsy forceps to rule out H. pylori. The duodenum appeared normal. Performed random biopsy using biopsy forceps to rule out celiac disease. Recommendation Await pathology results Follow-up with Dr Cruz and Dr Loza regarding MALS Indication Abdominal pain, acute, epigastric Post-Op Diagnosis None Staff Staff Role Bisi Pena MD Proceduralist Medications See Anesthesia Record. Preprocedure A history and physical has been performed, and patient medication allergies have been reviewed. Thepatient's tolerance of previous anesthesia has been reviewed. The risks and benefits of the procedure and the sedation options and risks were discussed with the patient. All questions were answered and informed consent obtained. Details of the Procedure The patient underwent monitored anesthesia care, which was administered by an anesthesia professional. The patient's blood pressure, ECG, ETCO2, heart rate, level of consciousness, oxygen and respirations were monitored throughout the procedure. The scope was introduced through the mouth and advanced to the second part of the duodenum. Retroflexion was performed in the cardia. The patient experienced no blood loss. The procedure was not difficult. The patient tolerated the procedure well. Therewere no apparent adverse events. Events Procedure Events Event Event Time ENDO SCOPE IN TIME 09/14/2024 10:03 AM Specimens ID Type Source Tests Collected by Time 1 : COLD BIOPSY Tissue DUODENUM SECOND PART BIOPSY SURGICAL PATHOLOGY EXAM Bisi Pena MD 009 2 : COLD BIOPSY Tissue STOMACH ANTRUM BIOPSY SURGICAL PATHOLOGY EXAM Bisi Pena MD 09/14/2024 1010 Procedure Location [facility] [address] [id number] Referring Provider Bisi Pena MD Procedure Provider Bisi Pena MDOhioHealth Dublin Methodist HospitalEG Study observation Narrativeon [id number] formatting from the original result was not included. Impression The esophagus appeared normal. The stomach appeared normal. Performed random biopsy to rule out H. pylori. The duodenum appeared normal. Performed random biopsy to rule out celiac disease. Endoflip impedance planimetry showed a normal EGJ opening with EGJ-DI at 6.1 mm2/mmHg and maximum EGJ diameter at 17.8 mm. Contractility pattern was normal contractile response (NCR). Findings The Endoflip impedance planimetry system was utilized to assess distensibility and secondary peristalsis. Results Below: Placement time:101 Removal time: Lower esophageal sphincter measurement (cm):40 Balloon Volume (mL):50 Diameter (mm): 16.1 Distensibility (mm2/mmHg): 7.1 Pressure (mm/Hg): 28.28 Balloon Volume (mL):60 Diameter (mm): 17.8 Distensibility (mm2/mmHg): 6.1 Pressure (mm/Hg): 41.0 Balloon Volume (mL):70 Diameter (mm): 16.3 Distensibility (mm2/mmHg): 4.4 Pressure (mm/Hg): 47.7 Balloon Volume (mL): 70 Diameter (mm): Distensibility (mm2/mmHg): Pressure (mm/Hg): The esophagus appeared normal. The stomach appeared normal. Performed random biopsy using biopsy forceps to rule out H. pylori. The duodenum appeared normal. Performed random biopsy using biopsy forceps to rule out celiac disease. Recommendation Await pathology results Follow-up with Dr Cruz and Dr Loza regarding MALS Indication Abdominal pain, acute, epigastric Post-Op Diagnosis None Staff Staff Role Bisi Pena MD Proceduralist Medications See Anesthesia Record. Preprocedure A history and physical has been performed, and patient medication allergies have been reviewed. The patient's tolerance of previous anesthesia has been reviewed. The risks and benefits of the procedure and the sedation options and risks were discussed with the patient. All questions were answered and informed consent obtained. Details of the Procedure The patient underwent monitored anesthesia care, which was administered by an anesthesia professional. The patient's blood pressure, ECG, ETCO2, heart rate, level of consciousness, oxygen and respirations were monitored throughout the procedure. The scope was introduced through the mouth and advanced to the second part of the duodenum. Retroflexion was performed in the cardia. The patient experienced no blood loss. The procedure was not difficult. The patient tolerated the procedure well. There were no apparent adverse events. Events Procedure Events Event Event Time ENDO SCOPE IN TIME 09/14/2024 10:03 AM Specimens ID Type Source Tests Collected by Time 1 : COLD BIOPSY Tissue DUODENUM SECOND PART BIOPSY SURGICAL PATHOLOGY EXAM Bisi Pena MD 09/14/2024 1009 2 : COLD BIOPSY Tissue STOMACH ANTRUM BIOPSY SURGICAL PATHOLOGY EXAM Bisi Pena MD 09/14/2024 1010 Procedure Location [facility] [address] [id number] Referring Provider Bisi Pena MD Procedure Provider Bisi Pena MD [facility] Work Phone: [facility] Work Phone: Radiology Study observation (narrative)[facility] Work Phone: Surgical pathology studyon [id number] pathology studyPathology report.total SEE COMMENT Surgical Pathology Case: [id number] Authorizing Provider: Bisi Pena MD Collected: 09/14/2024 1009 Ordering Location: [facility] Received: 09/14/2024 1102 Pathologist: Ciaran Nieves MD PhD Specimens: A) - DUODENUM SECOND PART BIOPSY, COLD BIOPSY B) - STOMACH ANTRUM BIOPSY, COLD BIOPSY Path report.final diagnosis SEE COMMENT A. Duodenum, Second Part, Biopsy: -- Duodenal mucosa with focal gastric mucin-cell metaplasia. No intraepithelial lymphocytosis. Normal villous architecture. B. Stomach, Antrum, Biopsy: -- Normal antral and oxyntic mucosa. No Helicobacter organisms are identified. at 1020 EDT Laboratory comment By the signature on this report, the individual or group listed as making the Final Interpretation/Diagnosis certifies that they have reviewed this case. Path report.relevant Hx SEE COMMENT R10.13 - Abdominal pain, acute, epigastric [ICD-10-CM] A) rule out celiac B) rule out H.pylori Path report.gross observation SEE COMMENT A: Received in formalin, labeled with the patient's name and hospital number and specimen 1 cold biopsy , are multiple fragments of castelan, soft tissue aggregating to 0.9 x 0.3 x 0.3 cm. The specimen is submitted in toto in one cassette. JJC B: Received in formalin, labeled with the patient's name and hospital number and specimen 2 cold biopsy , are multiple fragments of castelan, soft tissue aggregating to 0.9 x 0.6 x 0.3 cm. The specimen is submitted in toto in one cassette. [facility]ITALNormalUniSelect Medical Specialty Hospital - [facility]-FairhillFL UPPER GI W KUBon 08-24-2024 Source Facility: [facility] Interpreted By: Antonio Jones, STUDY: FL UPPER GI W KUB; 08/24/2024 12:24 pm INDICATION: Signs/Symptoms:MD orders to evaluate anatomy - Pt prefers [place] Location. COMPARISON: None. ACCESSION NUMBER(S): [id number] ORDERING CLINICIAN: LOKESH DAMICO TECHNIQUE: Librarian Special Library images were obtained. Multiple fluoroscopic spot esophagram images then were obtained with the patient in an upright LPO and lateral projections after administration of an effervescent agent, and thick barium. This was followed by upper GI spot images. Additional esophagram images were obtained with the patient in a prone VERNON projection with thin barium. The patient tolerated the procedure well. FINDINGS: Librarian Special Library images: Unremarkable bowel gas pattern. Esophagus: Swallowing mechanism: Unremarkable, with free flow through the esophagus. Esophageal lumen: Unremarkable without significant dilatation. The esophageal mucosa: Unremarkable without obvious ulceration. GE junction: Unremarkable without hernia. There is minimal but not considered significant gastroesophageal reflux with the water siphon challenge. UGI: Stomach: Unremarkable without mass or constricting lesions, or mucosal irregularity. Duodenum: Unremarkable. Visualized proximal small bowel: Unremarkable. IMPRESSION: 1. Unremarkable exam. Signed by: Antonio Jones 08/24/2024 3:08 PM Dictation workstation: [id number], Radiologist, - 08/24/2024 Source Facility: [facility] Interpreted By: Antonio Jones, STUDY: [place] UPPER GI W KUB; 08/24/2024 12:24 pm INDICATION: Signs/Symptoms:MD orders to evaluate anatomy - Pt prefers [place] Location. COMPARISON: None. ACCESSION NUMBER(S): [id number] ORDERING CLINICIAN: LOKESH DAMICO TECHNIQUE: Librarian Special Library images were obtained. Multiple fluoroscopic spot esophagram images then were obtained with the patient in an upright LPO and lateral projections after administration of an effervescent agent, and thick barium. This was followed by upper GI spot images. Additional esophagram images were obtained with the patient in a prone VERNON projection with thin barium. The patient tolerated the procedure well. FINDINGS: Librarian Special Library images: Unremarkable bowel gas pattern. Esophagus: Swallowing mechanism: Unremarkable, with free flow through the esophagus. Esophageal lumen: Unremarkable without significant dilatation. The esophageal mucosa: Unremarkable without obvious ulceration. GE junction: Unremarkable without hernia. There is minimal but not considered significant gastroesophageal reflux with the water siphon challenge. UGI: Stomach: Unremarkable without mass or constricting lesions, or mucosal irregularity. Duodenum: Unremarkable. Visualized proximal small bowel: Unremarkable. IMPRESSION: 1. Unremarkable exam. Signed by: Antonio Jones 08/24/2024 3:08 PM Dictation workstation: [id number] [facility] UPPER GI W KUBInterpreted By: Antonio Jones, STUDY: [place] UPPER GI W KUB; 08/24/2024 12:24 pm INDICATION: Signs/Symptoms:MD orders to evaluate anatomy - Pt prefers [place] Location. COMPARISON: None. ACCESSION NUMBER(S): [id number] ORDERING CLINICIAN: LOKESH DAMICO TECHNIQUE: Librarian Special Library images were obtained. Multiple fluoroscopic spot esophagram images then were obtained with the patient in an upright LPO and lateral projections after administration of an effervescent agent, and thick barium. This was followed by upper GI spot images. Additional esophagram images were obtained with the patient in a prone VERNON projection with thin barium. The patient tolerated the procedure well. FINDINGS: Librarian Special Library images: Unremarkable bowel gas pattern. Esophagus: Swallowing mechanism: Unremarkable, with free flow through the esophagus. Esophageal lumen: Unremarkable without significant dilatation. The esophageal mucosa: Unremarkable without obvious ulceration. GE junction: Unremarkable without hernia. There is minimal but not considered significant gastroesophageal reflux with the water siphon challenge. UGI: Stomach: Unremarkable without mass or constricting lesions, or mucosal irregularity. Duodenum: Unremarkable. Visualized proximal small bowel: Unremarkable. IMPRESSION: 1. Unremarkable exam. Signed by: Antonio Jones 08/24/2024 3:08 PM Dictation workstation: [id number] Dublin Methodist HospitalRadiology Study observation (narrative)[facility] UPPER GI W KUB Ordered By: Radiologist Radiology on [id number] North Work Phone: xr Abdomen and RF Gastrointestinal tract upper W contrast [place] . Unremarkable exam. Signed by: Antonio Jones 08/24/2024 3:08 PM Dictation workstation: [id number] By: Antonio Jones, STUDY: [place] UPPER GI W KUB; 08/24/2024 12:24 pm INDICATION: Signs/Symptoms:MD orders to evaluate anatomy - Pt prefers [place] Location. COMPARISON: None. ACCESSION NUMBER(S): [id number] ORDERING CLINICIAN: LOKESH DAMICO TECHNIQUE: Librarian Special Library images were obtained. Multiple fluoroscopic spot esophagram images then were obtained with the patient in an upright LPO and lateral projections after administration of an effervescent agent, and thick barium. This was followed by upper GI spot images. Additional esophagram images were obtained with the patient in a prone VERNON projection with thin barium. The patient tolerated the procedure well. FINDINGS: Librarian Special Library images: Unremarkable bowel gas pattern. Esophagus: Swallowing mechanism: Unremarkable, with free flow through the esophagus. Esophageal lumen: Unremarkable without significant dilatation. The esophageal mucosa: Unremarkable without obvious ulceration. GE junction: Unremarkable without hernia. There is minimal but not considered significant gastroesophageal reflux with the water siphon challenge. UGI: Stomach: Unremarkable without mass or constricting lesions, or mucosal irregularity. Duodenum: Unremarkable. Visualized proximal small bowel: Unremarkable. [facility] MMODALAntonio Jones MD - 08/24/2024 Interpreted By: Antonio Jones, STUDY: [place] UPPER GI W KUB; 08/24/2024 12:24 pm INDICATION: Signs/Symptoms: orders to evaluate anatomy - Pt prefers [place] Location. COMPARISON: None. ACCESSION NUMBER(S): [id number] ORDERING CLINICIAN: LOKESH DAMICO TECHNIQUE: Librarian Special Library images were obtained. Multiple fluoroscopic spot esophagram images then were obtained with the patient in an upright LPO and lateral projections after administration of an effervescent agent, and thick barium. This was followed by upper GI spot images. Additional esophagram images were obtained with the patient in a prone VERNON projection with thin barium. The patient tolerated the procedure well. FINDINGS: Librarian Special Library images: Unremarkable bowel gas pattern. Esophagus: Swallowing mechanism: Unremarkable, with free flow through the esophagus. Esophageal lumen: Unremarkable without significant dilatation. The esophageal mucosa: Unremarkable without obvious ulceration. GE junction: Unremarkable without hernia. There is minimal but not considered significant gastroesophageal reflux with the water siphon challenge. UGI: Stomach: Unremarkable without mass or constricting lesions, or mucosal irregularity. Duodenum: Unremarkable. Visualized proximal small bowel: Unremarkable. IMPRESSION: 1. Unremarkable exam. Signed by: Antonio Jones 08/24/2024 3:08 PM Dictation workstation: [id number] [facility] Work Phone: Radiology Study observation (narrative)[facility] Work Phone: XR Abdomen and RF Gastrointestinal tract upper W contrast POOrdered By: Antonio Jones on 06-11-3429KxrjmtqlnjKettering Health [facility] Campus Work Phone: Ambulatory Visit Summaryon [id number] Visit SummaryAmbulatory Visit Summary NIKKI MARTINS :1980 Visit Date:07/23/2024 Ambulatory Visit Instructions Your Diagnosis Abdominal pain Large liver Family history of pancreatic cancer Your Care Team Attending Physician - Daphney MCKINLEY, Booker Jenkins Primary Care Physician - CYNDI EPPERSON CNP This Is Your Medications List polyethylene glycol 3350 (Miralax 3350 17 gram packet) psyllium (Metamucil 3.4 g/5.2 g oral powder) Contact prescribing physician if questions or concerns amitriptyline (amitriptyline 50 mg Tab) cyanocobalamin (Vitamin B12) dicyclomine (Bentyl 10 mg Cap) dicyclomine (dicyclomine 10 mg Cap) ergocalciferol (Vitamin D) omeprazole (omeprazole 20 mg Cap-DR) omeprazole (omeprazole 40 mg Cap-DR) ondansetron (Zofran 4 mg Tab) ondansetron (Zofran ODT 4 mg Tab-Dis) Procedures Performed Colonoscopy (01/10/2024), EGD (esophagogastroduodenoscopic) electrohydraulic lithotripsy of bezoar in stomach (01/10/2024), History of tonsillectomy, Resection of Bilateral Fallopian Tubes, Via Natural or Artificial Opening, Resection of Uterus, Via Natural or Artificial Opening. Discharge Vitals Heart Rate (Peripheral) 78 Blood Pressure 132/84 Height 67 in Height 170 cm Weight 140.214 lb Weight 63.6 kg BMI 22.01 Medications What How Much When Instructions New polyethylene glycol 3350 (Miralax 3350 17 gram packet) 17 Gram By Mouth Every day Refills: 6 Pickup at [facility]/pharmacy #[id number] New psyllium (Metamucil 3.4 g/ 5.2 g oral powder) 3.4 Gram By Mouth 3 times a day as needed for forconstipation Refills: 6 Pickup at [facility]/pharmacy #[id number] Unchanged amitriptyline (amitriptyline 50 mg Tab) 1 Tablets By Mouth Once a day (at bedtime) Contact prescribing physician if questions or concerns Unchanged cyanocobalamin (Vitamin B12) Contact prescribing physician if questions or concerns Unchanged dicyclomine (Bentyl 10 mg Cap) 1 Capsules By Mouth 4 times a day Duration: 30 Days Contact prescribing physician if questions or concerns Unchanged dicyclomine (dicyclomine 10 mg Cap) Contact prescribing physician if questions or concerns Unchanged ergocalciferol (Vitamin D) By Mouth Every week Contact prescribing physician if questionsor concerns Unchanged omeprazole (omeprazole 20 mg Cap-DR) 2 times a day Contact prescribing physician if questions or concerns Unchanged omeprazole (omeprazole 40 mg Cap-DR) 1 Capsules By Mouth Every day Contact prescribing physician if questions or concerns Unchanged ondansetron (Zofran 4 mg Tab) 1 Tablets By Mouth Every 8 hours as needed for Nausea/Vomiting Contact prescribing physician if questions or concerns Unchanged ondansetron (Zofran ODT 4 mg Tab-Dis) 1 Tablets By Mouth 3 times a day Contact prescribing physician if questions or concerns Pharmacy Information [facility]/pharmacy #[id number]: [address], [place] [phone] Allergies acetaminophen-oxycodone (Gastrointestinal symptom) amoxicillin (Unkempt) Problems Ongoing - Any problem [...] you for choosing us for your care. [facility] HospitalGastro[facility]ology Office/Clinic Noteon [phone] Office/Clinic NoteGastroenterology Office/Clinic Note Chief Complaint Abdominal pain and spasms HPI Staff Patient is a(n) 43 year old female who presents today for follow up, discuss FMLA paperwork. Still having abdominal pain? yes Dicyclomine effective? still having spasms Denies blood thinners. Denies GLP-1 agonists. Pain management consultation at 07/12/24- Dr Rain ASSESSMENT & PLAN Nikki Martins is a 43 y.o. female with PMH hiatal hernia who presents as new patient referred by Dr Potter with abdominal pain. Pt presents with SO. 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 This has been present since November 2023. Eating makes this much worse. She has had an extensive workup including EGD, colonoscopy, HIDA scan and gastric emptying study which have been normal exceptfor the finding of a small hiatal hernia. She has lost about 10 to 20 pounds since this started. A duplex which was transferred and available from the outside shows a peak velocity in the celiac axisof 280 cm/s in expiration and this normalizes [...] I will see her after these consultations. [facility] 03/16/24: CAP- 211, E- 3.9 S0, F0/F1 US mesenteric 03/02/24 @ [facility]: IMPRESSION AORTA Patent. MESENTERIC VESSELS Celiac: Evidence of dynamic elevated velocities due to median arcuate ligament compression. Hepatic: Not evaluated. Splenic: Not evaluated. Superior mesenteric artery: 0-69% stenosis. No evidence of hemodynamically significant stenosis. Inferior mesenteric artery: 0-69% stenosis. No evidence of hemodynamically significant stenosis. GES 02/07/24: IMPRESSION: ESSENTIALLY NORMAL GASTRIC EMPTYING. EGD/Colon 01/10/24 @ [place]: Normal colon Normal EGD - random biopsies for H pylori Pathology: -H. pylori immunostain with appropriate control is also negative for identified Helicobacter organism or infection CT 12/15/23 @ [place]: IMPRESSION: 1. Heterogeneous enlarged liver. Correlate with labs. 2. No acute bowel or inflammatory findings. Normal appendix. 3. Simple 1 cm right renal cyst. RUQ US 12/16/23: IMPRESSION: 1. No acute or specific findings to account for patient's symptoms. 2. No suspicious abnormality of the liver. CT 12/19/23: IMPRESSION: NO ACUTE INTRA-ABDOMINAL PROCESS IDENTIFIED. HIDA 01/04 @ [place]: IMPRESSION: 1. Normal nuclear medicine HIDA scan. Labs 02/22/24 @ [place]: CRP <0.50 Amylase 57 Lipase 52.0 Antistreptolysin O Ab 124.7 Antinuclear Antibodies, IFA positive Speckled Pattern 1:640 (abnormal) Nuclear Dot Pattern >1:1280 (abnormal) History of Present Illness Reviewed HPI collected by staff Review of Systems PHQ Score Initial Depression Screen Score: 0 SCORE All systems reviewed, negative; Except for above Physical Exam Vitals & Measurements HR: 78(Peripheral) BP: 132/84 HT: 67 in HT: 170 cm WT: 63.6 kg WT: 140.214 lb BMI: 22.01 No acute distress Assessment/Plan 1. Abdominal pain (R10.9: Unspecified abdominal pain) Mild right upper quadrant pain, persistent, associated with early satiety, recurrent vomiting, and about 20 pounds weight loss Had recurrent CTs at [facility] in December 2023, showed borderline enlarged liver, otherwise unremarkable. Liver enzymes within normal limits, pancreatic enzymes within normal limits Gastric emptying study within normal limits EGD was also done at [place], normal We tried amitriptyline 25 mg at bedtime, it helped decrease the pain a little bit, decrease the vomiting, but she still not eating well and losing weight I sent her to [facility] for abdomen ultrasound duplex suggestive of MALS Although the pain is not typical to be in the right upper quadrant for MALS, given the persistence of symptoms it was reasonable to refer to surgery for consultation Pt saw , had pain injection, no pain for 8 hours She has 2 more appointments with scheduled to assess candidacy for surgery for MALS Today she c/o abdominal cramping, u (more content not included)...[facility] HospitalComment on above:Result Comment: Electronically Signed By: Daphney MCKINLEY, Booker Jenkins\.br\Date and Time Signed: 07/23/24 08:45 EDT\.br\Electronically Co-Signed By: Davida Garibay MA\.br\Date and Time Co- Signed: 07/23/24 08:44 EDTFL PAIN MANAGEMENTon [id number] PAIN MANAGEMENTThese images are not reportable by radiology and will not be interpreted by Radiologists.[facility] HospitalNo Panel Informationon [id number] images are not reportable by radiology and will not be interpreted by Radiologists.IMAGINGUnMagruder Memorial Hospital Work Phone: Radiology Study observation (narrative)[facility] Work Phone: aLL MISCELLANEOUS TESTon [id number] TEST COMMENT.[facility] HealthcareComment on above:Test Ordered: [id number] Anti-Ku Ab (RDL) Anti-Ku Ab (RDL) Negative ESECF Reference Range: Negative This test was developed and its performance characteristics determined by [employer]. It has not been cleared or approved by the Food and Drug Administration. Performed at: [facility] [address] [place] [id number] Assembly Line Robot Operator: Robert Lee MD, Phone: [phone] Performed at: [address] [id number] Assembly Line Robot Operator: Igor Galarza PhD, Phone: [phone] Anti-Ku Ab (RDL) CLINISYMoccasin Bend Mental Health InstituteCT TRANSFER OF OUTSIDE FILMSon [id number] TRANSFER OF OUTSIDE FILMSOutside images for comparison or treatment purposes, not interpreted by Radiologists.[facility], AvonNM TRANSFER OF OUTSIDE FILMSon [id number] TRANSFER OF OUTSIDE FILMS Outside images for comparison or treatment purposes, not interpreted by Radiologists.[facility]ert[facility]y Interpretation of outside studyon [id number] images for comparison or treatment purposes, not interpreted by Radiologists.IMAGINGOutside images for comparison or treatment purposes, not interpreted by Radiologists.IMAGINGOutside images for comparison or treatment purposes, not interpreted by Radiologists.IMAGINGOutside images for comparison or treatment purposes, not interpreted by Radiologists.IMAGINGOutside images for comparison or treatment purposes, not interpreted by Radiologists.IMAGINGUS TRANSFER OF OUTSIDE FILMSon 42-98-4017KM TRANSFER OF OUTSIDE FILMSOutside images for comparison or treatment purposes, not interpreted by Radiologists.[facility] [place]onUS TRANSFER OF OUTSIDE FILMSOutside images for comparison or treatment purposes, not interpreted by Radiologists.[facility] [place]onXR TRANSFER OF OUTSIDE FILMSon 30-14-3122YP TRANSFER OF OUTSIDE FILMSOutside images for comparison or treatment purposes, not interpreted by Radiologists.[facility], AvonAppearance of UrineOrdered By: Weston Isabel on 40-44-2174Zlupxqhflx (U) Urine appearanceClearFGlenbeigh HospitalBacteria [Presence] in Urine by AutomatedOrdered By: Weston Isabel on 46-14-4990Dqmpahwd Auto Ql (U) Bacteria [Presence] in Urine by AutomatedNone SeenWadsworth-Rittman HospitalBasophils Auto (Bld) [#/Vol]Ordered By: Weston Isabel on 03-27-2024 Basophils (Bld) [#/Vol]Automated basophil count0.0-0.2FGlenbeigh HospitalBasophils/100 WBC Auto (Bld)Ordered By: Weston Isabel on 03-27-2024 Basophils/100 WBC (Bld)Automated basophil %.[facility] Bilirubin Test strip Ql (U)Ordered By: Weston Isabel on 95-67-5266Sdxxjjakw Ql (U)Bilirubin.total [Presence] in Urine by Test stripNegativeWadsworth-Rittman HospitalColor Auto (U)Ordered By: Weston Isabel on 47-00-4814Swssa (U) Color of Urine by AutoYelMercy Health – The Jewish HospitalComplement C3on 84-42-4291Fqjmirntxb C397 mg/zZQrlpge19-010Cym [facility] Physician GroupComment on above:Result Comment: Performed at: [facility] [address] [id number] Assembly Line Robot Operator: Igor Galarza PhD, Phone: [phone] By: #### CBC, CK, MISC2 LAB, CREAT, ADDONUAPLUS #### [address] #### C3, C4, RNA POLYMR, MITOM2, CH50 #### [facility] ,Complement C4on 43-59-6962Galzyswitm C422 mg/sJHadewq23-81Ddr [facility] Physician GroupComment on above:Result Comment: PERFORMED BY: [place] [address] PATHOLOGIST TUBE FITTER DANICA MORA M.D.Performed By: #### CBC, CK, MISC2 LAB, CREAT, ADDONUAPLUS #### [address] #### C3, C4, RNA POLYMR, MITOM2, CH50 #### [facility] ,Complement Total (CH50)on 50-24-9082Xhawcwjsmc Total (CH50)45Normal>41The [facility] Physician GroupComment on above:Result Comment: Age Male Female 1 - 30 [...] determine out of range values. Performed at: - [facility] [address] [place], [place] [id number] Assembly Line Robot Operator: Igor Galarza PhD, Phone: [phone] PERFORMED BY: [place] [address] PATHOLOGIST TUBE FITTER DANICA MORA M.D.Performed By: #### CBC, CK, MISC2 LAB, CREAT, ADDONUAPLUS #### [place] [address] [place] #### C3, C4, RNA POLYMR, MITOM2, CH50 #### [facility] ,Complete Blood Count Auto Diffon 19-01-7569Ssjvmnlmw (Bld) [#/Vol]0.0 10*3/uL Normal0.0-0.2The [facility] Physician GroupComment on above:Result Comment: PERFORMED BY: [place] [address] PATHOLOGIST TUBE FITTER DANICA MORA M.D.Performed By: #### CBC, CK, MISC2 LAB, CREAT, ADDONUAPLUS #### [address] #### C3, C4, RNA POLYMR, MITOM2, CH50 #### [facility] ,Basophils/100 WBC (Bld)0.6 %Normal.The [facility] Physician GroupComment on above:Performed By: #### CBC, CK, MISC2 LAB, CREAT, ADDONUAPLUS #### [address] #### C3, C4, RNA POLYMR, MITOM2, CH50 #### [facility] ,Eosinophils (Bld) [#/Vol]0.1 10*3/uLNormal0.0-0.45The [facility] Comment on above:Performed By: #### CBC, CK, MISC2 LAB, CREAT, ADDONUAPLUS #### [address] #### C3, C4, RNA POLYMR, MITOM2, CH50 #### [facility] ,Eosinophils/100 WBC (Bld)1.0 %Normal.The [facility] Physician GroupComment on above:Performed By: #### CBC, CK, MISC2 LAB, CREAT, ADDONUAPLUS #### [place] [address] [place] #### C3, C4, RNA POLYMR, MITOM2, CH50 #### [facility] ,Erythrocyte distribution width (RBC) [Ratio]12.4 %Cmgsaz03.9-15.3The [facility] Physician GroupComment on above:Performed By: #### CBC, CK, MISC2 LAB, CREAT, ADDONUAPLUS #### [place] [address] [place] #### C3, C4, RNA POLYMR, MITOM2, CH50 #### [facility] ,Hematocrit (Bld) [Volume fraction]41.0 %Gxmoze45.0-46.4The [facility] Physician GroupComment on above:Performed By: #### CBC, CK, MISC2 LAB, CREAT, ADDONUAPLUS #### [address] #### C3, C4, RNA POLYMR, MITOM2, CH50 #### [facility] ,Hemoglobin (Bld) [Mass/Vol]14.3 g/hUGslsja68.8-15.4The [facility] Physician GroupComment on above:Performed By: #### CBC, CK, MISC2 LAB, CREAT, ADDONUAPLUS #### [address] #### C3, C4, RNA POLYMR, MITOM2, CH50 #### [facility] ,Lymphocytes (Bld) [#/Vol]1.8 10*3/uLNormal1.00-4.8The [facility] Comment on above:Performed By: #### CBC, CK, MISC2 LAB, CREAT, ADDONUAPLUS #### [place] [address] [place] #### C3, C4, RNA POLYMR, MITOM2, CH50 #### [facility] ,Lymphocytes/100 WBC (Bld)27.7 %Normal.The [facility] Physician GroupComment on above:Performed By: #### CBC, CK, MISC2 LAB, CREAT, ADDONUAPLUS #### [address] #### C3, C4, RNA POLYMR, MITOM2, CH50 #### [facility] ,MCH (RBC) [Entitic mass]31.5 sdYklvof99.7-34.3The [facility] Comment on above:Performed By: #### CBC, CK, MISC2 LAB, CREAT, ADDONUAPLUS #### [address] #### C3, C4, RNA POLYMR, MITOM2, CH50 #### [facility] ,MCV (RBC) [Entitic vol]90.2 mDJrjktu31-433Qyl [facility] Physician GroupComment on above:Performed By: #### CBC, CK, MISC2 LAB, CREAT, ADDONUAPLUS #### [address] #### C3, C4, RNA POLYMR, MITOM2, CH50 #### [facility] ,Mean Corpuscular HGB Conc34.9 g/qYFbacwf28.0-35.0The [facility] Comment on above:Performed By: #### CBC, CK, MISC2 LAB, CREAT, ADDONUAPLUS #### [address] #### C3, C4, RNA POLYMR, MITOM2, CH50 #### [facility] ,Monocytes (Bld) [#/Vol]0.3 10*3/uLNormal0.0-0.8The [facility] Comment on above:Performed By: #### CBC, CK, MISC2 LAB, CREAT, ADDONUAPLUS #### [place] [address] [place] #### C3, C4, RNA POLYMR, MITOM2, CH50 #### [facility] ,Monocytes/100 WBC (Bld)5.1 %Normal.The [facility] Physician GroupComment on above:Performed By: #### CBC, CK, MISC2 LAB, CREAT, ADDONUAPLUS #### [address] #### C3, C4, RNA POLYMR, MITOM2, CH50 #### [facility] ,Neutrophils (Bld) [#/Vol]4.4 10*3/uLNormal1.8-7.7The [facility] Comment on above:Performed By: #### CBC, CK, MISC2 LAB, CREAT, ADDONUAPLUS #### [address] #### C3, C4, RNA POLYMR, MITOM2, CH50 #### [facility] ,Neutrophils/100 WBC (Bld)65.6 %Normal.The [facility] Physician GroupComment on above:Performed By: #### CBC, CK, MISC2 LAB, CREAT, ADDONUAPLUS #### [address] #### C3, C4, RNA POLYMR, MITOM2, CH50 #### [facility] ,NRBC%0.2 /100{WBC}Normal0-0.5The [facility] Physician GroupComment on above: Performed By: #### CBC, CK, MISC2 LAB, CREAT, ADDONUAPLUS #### [place] [address] [place] #### C3, C4, RNA POLYMR, MITOM2, CH50 #### [facility] ,Platelet mean volume (Bld) [Entitic vol]8.9 fLNormal6.3-10.7The [facility] Physician GroupComment on above:Performed By: #### CBC, CK, MISC2 LAB, CREAT, ADDONUAPLUS #### [place] [address] [place] #### C3, C4, RNA POLYMR, MITOM2, CH50 #### [facility] ,Platelets (Bld) [#/Vol]151 10*3/kXVndngh078-074Mpx [facility] Comment on above:Performed By: #### CBC, CK, MISC2 LAB, CREAT, ADDONUAPLUS #### [address] #### C3, C4, RNA POLYMR, MITOM2, CH50 #### [facility] ,RBC (Bld) [#/Vol]4.55 10*6/uLNormal3.60-5.00The [facility] Comment on above:Performed By: #### CBC, CK, MISC2 LAB, CREAT, ADDONUAPLUS #### [address] #### C3, C4, RNA POLYMR, MITOM2, CH50 #### [facility] ,WBC (Bld) [#/Vol]6.6 10*3/uLNormal3.8-11.6The [facility] Physician GroupComment on above:Performed By: #### CBC, CK, MISC2 LAB, CREAT, ADDONUAPLUS #### [address] #### C3, C4, RNA POLYMR, MITOM2, CH50 #### [facility] ,Creatine Kinaseon 19-69-6696VR [Catalytic activity/Vol]63 U/INhxwno33-163Txs [facility] Physician GroupComment on above:Result Comment: PERFORMED BY: [place] [address] PATHOLOGIST TUBE FITTER DANICA MORA M.D.Performed By: #### CBC, CK, MISC2 LAB, CREAT, ADDONUAPLUS #### [address] #### C3, C4, RNA POLYMR, MITOM2, CH50 #### [facility] ,Creatine kinase [Enzymatic activity/volume] in Serum or PlasmaOrdered By: Weston Isabel on 95-44-3636EG [Catalytic activity/Vol]Creatine kinase [Enzymatic activity/volume] in Serum or Wxifpz83-470DlizypxfdWadsworth-Rittman HospitalCreatinineon 40-56-2266Mgurexnnkh [Mass/Vol]0.93 mg/dLNormal0.60-1.20The [facility] Physician GroupComment on above:Performed By: #### CBC, CK, MISC2 LAB, CREAT, ADDONUAPLUS #### [facility] [address] [place] [address] [place] #### C3, C4, RNA POLYMR, MITOM2, CH50 #### [facility] ,GFR/1.73 sq M.predicted MDRD (S/P/Bld) [Vol rate/Area]mL/min/{1.73_m2}NormalThe [facility] Physician GroupComment on above:Result Comment: PERFORMED BY: [place] [address] PATHOLOGIST TUBE FITTER DANICA MORA M.D.Performed By: #### CBC, CK, MISC2 LAB, CREAT, ADDONUAPLUS #### [address] #### C3, C4, RNA POLYMR, MITOM2, CH50 #### [facility] ,Creatinine [Mass/volume] in Serum or PlasmaOrdered By: Weston Isabel on 03-25-9093Gafntucovg [Mass/Vol]Creatinine [Mass/volume] in Serum or Plasma 0.60-1.20Wadsworth-Rittman HospitalDipstick and Microscopicon 03-27-2024 Appearance (U)ClearNormalClearThe [facility] Physician GroupComment on above: Order Comment: Name Collection Type:: Clean-Voided MidstreamPerformed By: #### CBC, CK, MISC2 LAB, CREAT, ADDONUAPLUS #### [place] [address] [place] #### C3, C4, RNA POLYMR, MITOM2, CH50 #### [facility] ,Bacteria,UrineNone SeenNormalNone SeenThe [facility] Physician GroupComment on above:Order Comment: Name Collection Type:: Clean-Voided MidstreamPerformed By: #### CBC, CK, MISC2 LAB, CREAT, ADDONUAPLUS #### [address] #### C3, C4, RNA POLYMR, MITOM2, CH50 #### [facility] ,Bilirubin,UrineNegativeNormalNegativeThe [facility] Physician GroupComment on above:Order Comment: Name Collection Type:: Clean-Voided MidstreamPerformed By: #### CBC, CK, MISC2 LAB, CREAT, ADDONUAPLUS #### [address] #### C3, C4, RNA POLYMR, MITOM2, CH50 #### [facility] ,Color (U)Light-YellowNormalYellowUf Health North Physician GroupComment on above: Order Comment: Name Collection Type:: Clean-Voided MidstreamPerformed By: #### CBC, CK, MISC2 LAB, CREAT, ADDONUAPLUS #### [address] #### C3, C4, RNA POLYMR, MITOM2, CH50 #### [facility] ,Glucose Ql (U)NormalNormalNormalThe [facility] Physician GroupComment on above: Order Comment: Name Collection Type:: Clean-Voided MidstreamPerformed By: #### CBC, CK, MISC2 LAB, CREAT, ADDONUAPLUS #### [address] #### C3, C4, RNA POLYMR, MITOM2, CH50 #### [facility] ,Hyaline Casts,UrineNoneNormal0-8The [facility] Physician GroupComment on above: Order Comment: Name Collection Type:: Clean-Voided MidstreamResult Comment: PERFORMED BY: [place] [address] PATHOLOGIST TUBE FITTER DANICA MORA M.D.Performed By: #### CBC, CK, MISC2 LAB, CREAT, ADDONUAPLUS #### [address] #### C3, C4, RNA POLYMR, MITOM2, CH50 #### [facility] ,Ketones Ql (U)NegativeNormalNegativeThe [facility] Physician GroupComment on above:Order Comment: Name Collection Type:: Clean-Voided MidstreamPerformed By: #### CBC, CK, MISC2 LAB, CREAT, ADDONUAPLUS #### [address] #### C3, C4, RNA POLYMR, MITOM2, CH50 #### [facility] ,Leukocyte esterase Test strip Ql (U)NegativeNormalNegativeThe [facility] Physician GroupComment on above:Order Comment: Name Collection Type:: Clean- Voided MidstreamPerformed By: #### CBC, CK, MISC2 LAB, CREAT, ADDONUAPLUS #### [address] #### C3, C4, RNA POLYMR, MITOM2, CH50 #### [facility] ,Nitrite,UrineNegativeNormalNegativeThe [facility] Physician GroupComment on above:Order Comment: Name Collection Type:: Clean-Voided MidstreamPerformed By: #### CBC, CK, MISC2 LAB, CREAT, ADDONUAPLUS #### [address] #### C3, C4, RNA POLYMR, MITOM2, CH50 #### [facility] ,Occult Blood,UrineNegativeNormalNegativeThe [facility] Physician GroupComment on above:Order Comment: Name Collection Type:: Clean-Voided MidstreamPerformed By: #### CBC, CK, MISC2 LAB, CREAT, ADDONUAPLUS #### [place] [address] [place] #### C3, C4, RNA POLYMR, MITOM2, CH50 #### [facility] ,pH (U)5.5 [pH]Normal5.0-9.0The [facility] Physician GroupComment on above:Order Comment: Name Collection Type:: Clean-Voided MidstreamPerformed By: #### CBC, CK, MISC2 LAB, CREAT, ADDONUAPLUS #### [address] #### C3, C4, RNA POLYMR, MITOM2, CH50 #### [facility] ,Protein,UrineNegativeNormalNegativeThe [facility] Physician GroupComment on above:Order Comment: Name Collection Type:: Clean-Voided MidstreamPerformed By: #### CBC, CK, MISC2 LAB, CREAT, ADDONUAPLUS #### [address] #### C3, C4, RNA POLYMR, MITOM2, CH50 #### [facility] ,RBC,Urine1 [HPF]Normal0-4The [facility] Physician GroupComment on above:Order Comment: Name Collection Type:: Clean-Voided MidstreamPerformed By: #### CBC, CK, MISC2 LAB, CREAT, ADDONUAPLUS #### [address] #### C3, C4, RNA POLYMR, MITOM2, CH50 #### [facility] ,Specificy [place],Urine1.675Ejbnmk9.001-1.030The [facility] Comment on above:Order Comment: Name Collection Type:: Clean-Voided Midstream Performed By: #### CBC, CK, MISC2 LAB, CREAT, ADDONUAPLUS #### [address] #### C3, C4, RNA POLYMR, MITOM2, CH50 #### [facility] ,Squamous Epithelial Cell,Urine1 [HPF]Normal0-2The [facility] Comment on above:Order Comment: Name Collection Type:: Clean-Voided Midstream Performed By: #### CBC, CK, MISC2 LAB, CREAT, ADDONUAPLUS #### [facility] [address] [place] [address] [place] #### C3, C4, RNA POLYMR, MITOM2, CH50 #### [facility] ,Urobilinogen,UrineNormalNormalNormalThe [facility] Physician GroupComment on above:Order Comment: Name Collection Type:: Clean-Voided MidstreamPerformed By: #### CBC, CK, MISC2 LAB, CREAT, ADDONUAPLUS #### [facility] [address] [place] [address] #### C3, C4, RNA POLYMR, MITOM2, CH50 #### [facility] ,WBC,Urine1 [HPF]Normal0-4The [facility] Physician GroupComment on above:Order Comment: Name Collection Type:: Clean-Voided MidstreamPerformed By: #### CBC, CK, MISC2 LAB, CREAT, ADDONUAPLUS #### [facility] [address] [place] [address] #### C3, C4, RNA POLYMR, MITOM2, CH50 #### [facility] ,Eosinophils Auto (Bld) [#/Vol]Ordered By: Weston Isabel on 03-27-2024 Eosinophils (Bld) [#/Vol]Automated eosinophil count0.0-0.45Wadsworth-Rittman HospitalEosinophils/100 WBC Auto (Bld)Ordered By: Weston Isabel on 71-25-7701Qafhgazejfy/100 WBC (Bld)Automated eosinophil %.Wadsworth-Rittman HospitalEpithelial cells.squamous [#/area] in Urine sediment by Automated countOrdered By: Weston Isabel on 40-34-1498Povndexqbb cells.squamous Auto (Urine sed) [#/Area]Epithelial cells.squamous [#/area] in Urine sediment by Automated count0-2FGlenbeigh HospitalErythrocyte distribution width Auto (RBC) [Ratio]Ordered By: Weston Isabel on 05-34-5898Qezmcilrchr distribution width (RBC) [Ratio]Erythrocyte distribution width [Ratio] by Automated count11.9-15.3FGlenbeigh HospitalErythrocytes [#/area] in Urine sediment by Automated countOrdered By: Weston Isabel on 71-58-2747ZKD Auto (Urine sed) [#/Area]Erythrocytes [#/area] in Urine sediment by Automated count0-4FGlenbeigh HospitalGlucose [Mass/volume] in Urine by Test stripOrdered By: Weston Isabel on 78-36-6776Eetycna Test strip (U) [Mass/Vol] Glucose [Mass/volume] in Urine by Test stripNoAvita Health System Ontario HospitalHematocrit Auto (Bld) [Volume fraction]Ordered By: Weston Isabel on 74-48-3365Ltiufyeumv (Bld) [Volume fraction]Hematocrit [Volume Fraction] of Blood by Automated count34.0-46.4FGlenbeigh HospitalHemoglobin Test strip Ql (U)Ordered By: Weston Isabel on 08-34-5686Skmycoendb Ql (U) Hemoglobin [Presence] in Urine by Test stripNegOhioHealth Arthur G.H. Bing, MD, Cancer CenterHemoglobin [Mass/volume] in BloodOrdered By: Weston Isabel on 03-27-2024 Hemoglobin (Bld) [Mass/Vol]Hemoglobin [Mass/volume] in Blood11.8-15.4FGlenbeigh HospitalHyaline casts [#/area] in Urine sediment by Automated countOrdered By: Weston Isabel on 42-10-7388Jndrgdc casts Auto (Urine sed) [#/Area]Hyaline casts [#/area] in Urine sediment by Automated count0-8Wadsworth-Rittman HospitalKetones Test strip Ql (U)Ordered By: Weston Isabel on 08-70-5682Ytbdket Ql (U)Ketones [Presence] in Urine by Test stripNegative W[facility]sworth-Rittman HospitalLeukocyte esterase [Presence] in Urine by Test stripOrdered By: Weston Isabel on 61-51-1143Lzqwptepw esterase Test strip Ql (U)Leukocyte esterase [Presence] in Urine by Test stripNegOhioHealth Arthur G.H. Bing, MD, Cancer CenterLeukocytes [#/area] in Urine sediment by Automated count Ordered By: Weston Isabel on 22-58-0664XWW Auto (Urine sed) [#/Area]Leukocytes [#/area] in Urine sediment by Automated count0-4FGlenbeigh HospitalLeukocytes [#/volume] corrected for nucleated erythrocytes in Blood by Automated counOrdered By: Weston Isabel on 13-71-9346TTV corrected for nucl RBC Auto (Bld) [#/Vol]Leukocytes [#/volume] corrected for nucleated erythrocytes in Blood by Automated coun3.8-11.6FGlenbeigh HospitalLymphocytes Auto (Bld) [#/Vol]Ordered By: Weston Isabel on 01-99-1407Qcgqakzkyxd (Bld) [#/Vol]Lymphocytes [#/volume] in Blood by Automated count1.00-4.8Wadsworth-Rittman HospitalLymphocytes/100 WBC Auto (Bld)Ordered By: Weston Isabel on 57-78-7732Xzrlayycdak/100 WBC (Bld)Lymphocytes/100 leukocytes in Blood by Automated count.Wadsworth-Rittman HospitalMCH Auto (RBC) [Entitic mass] Ordered By: Weston Isabel on 74-93-0405QWX (RBC) [Entitic mass]MCH [Entitic mass] by Automated count24.7-34.3FGlenbeigh HospitalMCHC Auto (RBC) [Mass/Vol]Ordered By: Weston Isabel on 91-56-8787TXBX (RBC) [Mass/Vol] MCHC [Mass/volume] by Automated count32.0-35.0[facility] MCV Auto (RBC) [Entitic vol]Ordered By: Weston Isabel on 89-09-6669KRE (RBC) [Entitic vol]MCV [Entitic volume] by Automated -241MyfhwwycaWadsworth-Rittman HospitalMISC2 LABon 95-44-0215NOEY4 [facility] Comment on above:Order Comment: Misc 2 Test Name: TEST# [id number] NPX-2Result Comment: See report. Scanned copy available in EMR. PERFORMED BY: [facility] [place] [address] PATHOLOGIST TUBE FITTER DANICA MORA M.D.Performed By: #### CBC, CK, MISC2 LAB, CREAT, ADDONUAPLUS #### [facility] [address] [place] [address] [place] #### C3, C4, RNA POLYMR, MITOM2, CH50 #### [facility] ,Mitochondrial (M2) Antibodyon 73-03-2505Lnlgzbtlhqqcs (M2) Antibody<20.0Normal 0.0-20.0The [facility] Physician GroupComment on above:Result Comment: Negative 0.0 - 20.0 Equivocal 20.1 - 24.9 Positive >24.9 Mitochondrial (M2) Antibodies are found in 90-96% of patients with primary biliary cirrhosis. Performed at: [facility] [address] [id number] Assembly Line Robot Operator: Igor Galarza PhD, Phone: [phone] By: #### CBC, CK, MISC2 LAB, CREAT, ADDONUAPLUS #### [facility] [address] [place] [address] #### C3, C4, RNA POLYMR, MITOM2, CH50 #### [facility] ,Monocytes Auto (Bld) [#/Vol]Ordered By: Weston Isabel on 54-20-5046Tgjxlexqm (Bld) [#/Vol]Automated blood monocyte count0.0-0.8Wadsworth-Rittman HospitalMonocytes/100 WBC Auto (Bld)Ordered By: Weston Isabel on 03-27-2024 Monocytes/100 WBC (Bld)Automated monocyte %.[facility] Neutrophils Auto (Bld) [#/Vol]Ordered By: Weston Isabel on 03-27-2024 Neutrophils (Bld) [#/Vol]Neutrophils [#/volume] in Blood by Automated count 1.8-7.7FGlenbeigh HospitalNeutrophils/100 WBC Auto (Bld)Ordered By: Weston Isabel on 90-54-9656Hiqbfiiptjl/100 WBC (Bld)Automated neutrophil %. Wadsworth-Rittman HospitalNitrite Test strip Ql (U)Ordered By: Weston Isabel on 42-97-9771Vbjhsua Ql (U)Nitrite [Presence] in Urine by Test strip NegativeWadsworth-Rittman HospitalNo Panel InformationOrdered By: Weston Isabel on 61-00-4625Wgjjrldsm GFR (CKD-EPI)> 60.0 mL/MinWadsworth-Rittman HospitalPharmacy Creatinine Clearance (ChemN/White HospitalNucleated erythrocytes [Presence] in Blood by Automated countOrdered By: Weston Isabel on 93-67-8304Whipxwfgu RBC Auto Ql (Bld)Nucleated erythrocytes [Presence] in Blood by Automated count0-0.5FGlenbeigh Hospital Platelet mean volume Auto (Bld) [Entitic vol]Ordered By: Weston Isabel on 63-82-9635Rjufjkwd mean volume (Bld) [Entitic vol]Platelet mean volume [Entitic volume] in Blood by Automated count6.3-10.7FGlenbeigh Hospital Platelets Auto (Bld) [#/Vol]Ordered By: Weston Isabel on 64-20-0664Jokgknzxf (Bld) [#/Vol]Platelets [#/volume] in Blood by Automated -387MhctosvsvWadsworth-Rittman HospitalProtein Test strip (U) [Mass/Vol]Ordered By: Weston Isabel on 70-40-7290Tdhhoes (U) [Mass/Vol]Protein [Mass/volume] in Urine by Test stripNegativeWadsworth-Rittman HospitalRBC Auto (Bld) [#/Vol]Ordered By: Weston Isabel on 81-42-3807TUW (Bld) [#/Vol]Erythrocytes [#/volume] in Blood by Automated count3.60-5.00Wadsworth-Rittman HospitalRNA Polymerase IIion 07-70-2091IZB Polymerase IIi<20Normal<20The [facility] Comment on above:Result Comment: Negative: <20 Weak Positive: 20 - 39 Moderate Positive: 40 - 80 Strong Positive: >80 Performed at: [facility] [address] [place] [id number] Assembly Line Robot Operator: Robert Lee MD, Phone: [phone] PERFORMED BY: [address] [place] [address] PATHOLOGIST TUBE FITTER DANICA MORA M.D.Performed By: #### CBC, CK, MISC2 LAB, CREAT, ADDONUAPLUS #### [facility] [address] #### C3, C4, RNA POLYMR, MITOM2, CH50 #### [facility] ,Specific gravity Test strip (U) [Rel density]Ordered By: Weston Isabel on 04-20-4652Fyojygvk gravity (U) [Rel density]Specific gravity of Urine by Test strip1.001-1.030Wadsworth-Rittman HospitalUrobilinogen Test strip (U) [Mass/Vol]Ordered By: Weston Isabel on 03-22-7009Lrywfioyyilc (U) [Mass/Vol] Urobilinogen [Mass/volume] in Urine by Test stripNormKettering Health Main CampusWBC Auto (Bld) [#/Vol]Ordered By: Weston Isabel on 37-07-4866TUH (Bld) [#/Vol]Leukocytes [#/volume] in Blood by Automated count3.8-11.6FGlenbeigh HospitalpH Test strip (U)Ordered By: Weston Isabel on 03-27-2024 pH (U)pH of Urine by Test strip5.0-9.0Wadsworth-Rittman HospitalTSH W/REFLEX T4on 68-05-7086USL Qn0.618 m[IU]/LNOMS HealthcareCLINISYNCNOMS HealthcareProvider Letteron [id number] LetterProvider Letter March 13, 20[address] [place] [phone] : 1980 Dear Nikki, We received a call from stating they have tried to reach you regarding your referral to Dr. Hossein Potter (Michael), doctor of vascular surgery for your new diagnosis of MALS. You can call to schedule with Dr. Potter's clinical trial assistant, Yvonne, at office #: [phone]. Dr. Potter's address: [address] [place] [address] Please call the office with any questions or concerns. Thank you, [place] [phone] Behavioral HospitalAmbulatory Visit Summaryon [id number] Visit SummaryAmbulatory Visit Summary NIKKI MARTINS :1980 Visit Date:03/09/2024 [...] mg Tab-Dis) Procedures Performed Colonoscopy (01/10/2024), EGD (esophagogastroduodenoscopic) electrohydraulic lithotripsy of bezoar in stomach (01/10/2024), [...] day (at bedtime) Refills: 3 Pickup at [facility] [facility]acy [id number] Unchanged dicyclomine (dicyclomine 10 mg Cap) [...] physician if questions or concerns Pharmacy Information [facility]/pharmacy #[id number]: [address], [place] [phone] Allergies amoxicillin (Unkempt) Problems Ongoing - Any [...] you for choosing us for your care. [facility] Office/Clinic Noteon 98-73-3695Uowmctnjfqbnasaf Office/Clinic NoteGastroenterology Office/Clinic Note Chief Complaint epigastric to belly button, and right sided pain. 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 Taking Amitriptyline - helping nausea but not pain. US completed at [facility] - see below. Seen @ [place] ED 03/06/24 for abdominal pain. ED stopped [...] in the future US mesenteric 03/02/24 @ [facility]: IMPRESSION AORTA Patent. MESENTERIC VESSELS Celiac: Evidence of dynamic elevated velocities due to median arcuate ligament compression. Hepatic: Not evaluated. Splenic: Not evaluated. Superior mesenteric artery: 0-69% stenosis. No evidence of hemodynamically significant stenosis. Inferior mesenteric artery: 0-69% stenosis. No evidence of hemodynamically significant stenosis. GES 02/07/24: IMPRESSION: ESSENTIALLY NORMAL GASTRIC EMPTYING. EGD/Colon 01/10/24 @ [place]: Normal colon Normal EGD - random biopsies for H pylori Pathology: -H. pylori immunostain with appropriate control is also negative for identified Helicobacter organism or infection CT 12/15/23 @ [place]: IMPRESSION: 1. Heterogeneous enlarged liver. Correlate with labs. 2. No acute bowel or inflammatory findings. Normal appendix. 3. Simple 1 cm right renal cyst. RUQ US 12/16/23: IMPRESSION: 1. No acute or specific findings to account for patient's symptoms. 2. No suspicious abnormality of the liver. CT 12/19/23: IMPRESSION: NO ACUTE INTRA-ABDOMINAL PROCESS IDENTIFIED. HIDA 01/04 @ [place]: IMPRESSION: 1. Normal nuclear medicine HIDA scan. Labs 02/22/24 @ [place]: CRP <0.50 Amylase 57 Lipase 52.0 Antistreptolysin [...] pounds weight loss Has recurrent CTs at [facility] in December 2023, showed borderline enlarged liver, otherwise unremarkable. Liver enzymes within normal limits, pancreatic enzymes within normal limits Gastric emptying study within normal limits EGD was also done at [place] We tried amitriptyline 25 mg at bedtime, [...] also with weight loss. Expect fatty liver todecrease in size, it is reasonable to obtain [...] qualifying data Procedure/Surgical History Colonoscopy (01/10/2024), EGD (esophagogastroduodenoscopic) electrohydraulic lithotripsy of (more content not included)...[facility] Comment on above:Result Comment: Electronically Signed By: Daphney MCKINLEY, Booker Jenkins\.br\Date and Time Signed: 03/09/24 08:39 HCF65eg 87-00-272464Ptisocl called stating that her labs were resulted yesterday at [facility]. I updated them in her chart in care everywhere. Patient & her partner would like you to review them & contact them to discuss results.[facility] HospitalUS MESENTERIC ARTERY CMPLT VAS LABon 69-28-7327CL MESENTERIC ARTERY CMPLT VAS LABNon-Invasive Vascular Laboratory Main [place] J35 Renal or Mesenteric Duplex Bilateral/Complete Date [...] evidence of hemodynamically significant stenosis. Technologist: Elisha oRse RVT Interpreting physician: CHATO Bright DO Final CC [facility] : [id number] See Link below for ImageNormalCNorwalk Memorial Hospitalice Visiton 85-88-5657Zjddms-up [id number] Nikki Martins 1980 F Date Provider Department Center 02/29/2024 [facility] No family history on file Level of Service:01547 UT OFFICE/OUTPATIENT NEW HIGH MDM 60 MINUTESNormal [facility]ALL AMYLASEon 73-07-3475Hhicerl [Catalytic activity/Vol]57 U/L25 - 115 U/LNOMS HealthcareALL C REACTIVE PROTEINon 04-69-3153NBP [Mass/Vol]mg/LNINF - 0.50 mg/dLNONY HealthcareALL SED RATEon 96-12-6195WNM SED GTQJ4PQLWQHHO HealthcareCLINISYNCNOMS HealthcareCCF LIPASEon 05-39-0757Bakada [Catalytic activity/Vol]52 U/L16.0 - 77.0 U/LNOMS HealthcareNo Panel Informationon 26-68-0702OCQLOZQDNWJLS HealthcareNM Gastric Emptying Study on 97-19-4333KB Gastric Emptying StudyExam Date/Time: 02/07/2024 11:36 EDT Reason for Exam: [...] 60%) 11.9 3.0 hr (Upper Limit 30%) 5.3[facility] HospitalMM TOMOSYNTHESIS SCREENING BIon 80-66-5818[place] [address] Mammography Report Signed Patient: NIKKI MARTINS MR#: [id number] : 1980 Acct:[id number] Age/Sex: 43 / F ADM Date: 01/27/24 Loc: MAMMO Attending Dr: Cyndi Epperson NP Ordering Physician: Cyndi Epperson NP Results: Date of Service: 01/27/24 Follow Up: Procedure(s): MM tomosynthesis screening BI Accession Number(s): [id number] cc: Cyndi Epperson NP Patient Name: NIKKI MARTINS MR#: [id number] : 1980 Exam Date: 01/27/2024 Ordering Doctor: [...] pancreatic cancer at age 55. LOCATION: [facility] BREAST COMPOSITION: The breasts are heterogeneously dense,which [...] LUMP SHOULD BE BIOPSIED. Dictated by: Mike Lamb MD on 01/27/2024 at 12:08 Approved by: Mike Lamb MD on 01/27/2024 at 12:09 Dictated By: Mike Lamb M.D. Signed By: 01/27/24 1210 DD/ 1209 TD/TT: Infection Control Preventionist:TBHRadiology, Radiologist, - 01/27/2024 [place] [address] Mammography Report Signed Patient: NIKKI MARTINS MR#: [id number] : 1980 Acct:[id number] Age/Sex: 43 / F ADM Date: 01/27/24 Loc: MAMMO Attending Dr: Cyndi Epperson NP Ordering Physician: Cyndi Epperson NP Results: Date of Service: 01/27/24 Follow Up: Procedure(s): MM tomosynthesis screening BI Accession Number(s): [id number] cc: Cyndi Epperson NP Patient Name: NIKKI MARTINS MR#: [id number] : 1980 Exam Date: 01/27/2024 Ordering Doctor: [...] pancreatic cancer at age 55. LOCATION: [facility] BREAST COMPOSITION: The breasts are heterogeneously dense,which [...] LUMP SHOULD BE BIOPSIED. Dictated by: Mike Lamb MD on 01/27/2024 at 12:08 Approved by: Mike Lamb MD on 01/27/2024 at 12:09 Dictated By: Mike Lamb M.D. Signed By: 01/27/24 1210 DD/ 1209 TD/TT: Infection Control Preventionist: [facility] Study observation (narrative)[facility] NorthMM TOMOSYNTHESIS SCREENING BIOrdered By: Radiologist Radiology on 41-97-9671LVVK [employer] Work Phone: Gastroenterology Office/Clinic Noteon 01-19-2024 Gastroenterology Office/Clinic NoteGastroenterology Office/Clinic Note Chief Complaint Abdominal pain HPI Staff Patient is a(n) 43 year old female who presents today for a f/u from [facility] 12/19/23 for acute abdominal pain and hepatomegaly. Fhx fatty liver disease. Denies previous EGD/Colonoscopy. Denies Fhx colon cancer. Denies blood thinners/GLP-1 agonists. Patient states that last Tuesday she had colonoscopy and EGD at [facility]. Abdominal pain: When did you first have this pain: 2-3 months Quality (sharp, dull):constant pressure type pain and when eating she will get left sided pain thatis sharp. Constant or comes or go: constant [...] 91.3 fL (12/19/23) Chloride: 103 mmol/L (12/19/23) [place] Absolute: 0.6 E9/L (12/19/23) CO2: 29 mmol/L (12/19/23) [place] Auto: 4.8 % (12/19/23) Creatinine: 0.9 mg/dL [...] PRN Nausea/Vomiting, # 60 tab(s), Refills(s) 3, Pharmacy:[facility]/pharmacy #[id number], 170, cm, 01/19/24 12:39:00 EDT, Height/Length Dosing, 58.2, kg, 01/19/24 12:39:00 EDT, Weight Dosing Follow-up No qualifying data available Problem List/Past Medical History Ongoing Abdominal pain Large liver Historical No qualifying data Procedure/Surgical History Colonoscopy (01/10/2024), EGD (esophagogastroduodenoscopic) electrohydraulic lithotripsy of bezoar in stomach (01/10/2024), Resection of Bilateral Fallopian Tubes, Via Natural or Artificial Opening, Resection of Uterus, Via Natural or Artificial Opening. Medications dicyclomine 10 mg Cap omeprazole 20 mg Cap-DR, BID Zofran ODT 4 mg Tab-Dis, 4 mg= 1 tab(s), Oral, (more content not included)... [facility] HospitalComment on above:Result Comment: Electronically Signed By: Daphney MCKINLEY, Booker Jenkins\.br\Date and Time Signed: 01/19/24 13:00 EDTNM HEPATOBILIARY SCAN W PHARMACOLOGICAL INTERVENTIONon 16-85-3401WciDaniel [place] [id number] Nuclear Medicine Report Signed Patient: NIKKI MARTINS MR#: [id number] : 1980 Acct:[id number] Age/Sex: 43 / F ADM Date: 01/05/24 Loc: NM Attending Dr: Cyndi Epperson NP Ordering Physician: Cyndi Epperson NP Date of Service: 01/05/24 Procedure(s): NM hepatobiliary w pharm Accession Number(s): [id number] cc: Cyndi Epperson NP [address] [address] Patient Name: NIKKI MARTINS MRN: [id number] date: 1980 Sex: F Assigned Patient Location: [place] Current Patient Location: [place] Accession/Order Number: [id number] Exam Date: 01/05/2024 06:15 Report Date: 01/10/2024 15:30 At the request of: CYNDI EPPERSON Procedure: NM hepatobiliary w pharm EXAMINATION: NM hepatobiliary w pharm HISTORY: RIGHT UPPER QUADRANT [...] minutes. (Normal EF > 38%). OTHER: Negative. NM/ME hepatobiliary w pharm IMPRESSION: 1. Normal nuclear medicine HIDA scan. Electronically authenticated by: RAMYA LAYNE Date: 01/10/2024 15:30 Dictated By: Ramya Layne M.D. Signed By: 01/10/24 1533 DD/ 1530 TD/TT: Infection Control Preventionist:SAUMYAHRadiology, Radiologist, MD - 01/10/2024 [facility] [place] [id number] Nuclear Medicine Report Signed Patient: NIKKI MARTINS MR#: [id number] : 1980 Acct:[id number] Age/Sex: 43 / F ADM Date: 01/05/24 Loc: OREN Attending Dr: Cyndi Epperson BRAKE ENGINEER Ordering Physician: Cyndi Epperson NP Date of Service: 01/05/24 Procedure(s): ME hepatobiliary w pharm Accession Number(s): [id number] cc: Cyndi Epperson NP [address] [address] Patient Name: NIKKI MARTINS MRN: [id number] date: 1980 Sex: F Assigned Patient Location: [place] Current Patient Location: [place] Accession/Order Number: [id number] Exam Date: 01/05/2024 06:15 Report Date: 01/10/2024 15:30 At the request of: CYNDI EPPERSON Procedure: NM hepatobiliary w pharm EXAMINATION: NM hepatobiliary w pharm HISTORY: RIGHT UPPER QUADRANT [...] minutes. (Normal EF > 38%). OTHER: Negative. NM/ME hepatobiliary w pharm IMPRESSION: 1. Normal nuclear medicine HIDA scan. Electronically authenticated by: RAMYA LAYNE Date: 01/10/2024 15:30 Dictated By: Ramya Layne M.D. Signed By: 01/10/24 1533 DD/ 1530 TD/TT: Infection Control Preventionist: [facility] Study observation (narrative)[facility] HEPATOBILIARY SCAN W PHARMACOLOGICAL INTERVENTIONOrdered By: Radiologist Radiology on 56-99-7707JOUJCox North Work Phone: ct Abdomen/Pelvis w/ Contraston 37-07-0275NN Abdomen/Pelvis w/ ContrastExam Date/Time: 12/19/2023 19:53 EDT Reason for Exam: [...] Contrast: Isovue 300 Contrast amount in ml's: 100NormalFisher Gates Medical CenterED Note-Physicianon 60-87-2625IW Note-PhysicianED Note-Physician Basic Information Time Seen: Emily Troy PA-C. 12/19/2023 17:17 Chief Complaint was at [place] for diaphram pain. had ct's done. still has pain and says hair is falling out and lack of appetite History of Present Illness This patient presents emergency department chief complaint of abdominal pain. She states she is unable to eat because of severe pain. The eating does not make the pain any better, it does not make itany worse. She just does not have an appetite. The patient states she was seen at [facility] Tuesday. She states they did a CT [...] The patient denies tobacco abuse, alcohol abuse, streetdrug use. She has had a partial hysterectomy. The patient's is accompanying her very worried because he thinks she is becoming malnourished. He states she has lost a lot of weight in the lastmonth. Review of Systems Constitutional: Denies weight loss, [...] production, wheezing, hemoptysis, shortness of breath, dyspnea onexertion Gastrointestinal: Denies difficulty swallowing, indigestion, bloating, vomiting, diarrhea, constipation, hematochezia, melena. + Abdominal pain, abdominal cramping, loss of appetite, unintentional weight loss, nausea Genitourinary: Denies any incontinence of urine, dysuria, hematuria, nocturia, polyuria, hesitancy,frequency, urgency, burning Musculoskeletal: Denies joint pain, morning [...] calcium 9.7, remainder of CMP is unremarkable. 0- hour troponin 2.70, [address] scan of the abdomen and pelvis tonight is remarkable for liver is enlarged to 21 cm in length (more content not included)...[facility] HospitalComment on above:Result Comment: Electronically Signed By: Woodrow JJ, Emily Castillo\.br\Date and Time Signed: 12/19/23 23:05 EDT\.br\Electronically Co-Signed By: Emily Troy PA-C\.br\Date and Time Co-Signed: 12/19/23 23:06 EDT\.br\Electronically Co-Signed By: Emily Troy PA-C\.br\Date and TimeCo-Signed: 12/19/23 23:22 EDT\.br\Electronically Co-Signed By: Reza Bedoya DO\.br\Date and Time Co- Signed: 12/20/23 07:02 EDTBMPon 41-57-1999Xuynd gap [Moles/Vol]10 mmol/LNormal 6-16[facility] HospitalComment on above:Performed By: #### [id number] #### [facility] [address], [place] [address]Xwjmjgg [Mass/Vol]9.7 mg/dLNormal8.9-11.1FMercy Health Willard HospitalComment on above:Performed By: #### [id number] #### [facility] [address], [place] [address]Eerjcgjx [Moles/Vol]103 mmol/TJcaujg499-474UtekooGeorgetown Behavioral HospitalComment on above:Performed By: #### [id number] #### [facility] [address], [place] [address]NT8 [Moles/Vol]29 mmol/RLvieci63-16XfsavkGeorgetown Behavioral Hospital Comment on above:Performed By: #### [id number] #### [facility] [address], [place] [address]Utfyzulxsa [Mass/Vol]0.9 mg/dLNormal0.5-1.3FMercy Health Willard HospitalComment on above:Performed By: #### [id number] #### [facility] [address], [place] [address]Raxlqah [Mass/Vol]92 mg/bIDhxtfy16-559BxexcgGeorgetown Behavioral HospitalComment on above:Performed By: #### [id number] #### [facility] [address], [place] [address]Hmynaogll [Moles/Vol]4.3 mmol/LNormal3.5-5.3FMercy Health Willard HospitalComment on above:Performed By: #### [id number] #### [facility] [address] [place] [address]Uqxwqu [Moles/Vol]138 mmol/ASgqafs298-324DemohqGeorgetown Behavioral HospitalComment on above:Performed By: #### [id number] #### [facility] [address], [place] [address]Vxrw nitrogen [Mass/Vol]17 mg/dLNormal5-21[facility] HospitalComment on above:Performed By: #### [id number] #### [facility] [address] [place] [address]Seyn nitrogen/Creatinine [Mass ratio]19 No TebweGgibrr11-12 [facility] HospitalComment on above:Performed By: #### [id number] #### [facility] [address] [place] [address]WCU w/ Auto Diffon 31-18-3421Gdxfcziqk/100 WBC (Bld)0.5 %Normal 0.0-2.0[facility] HospitalComment on above:Performed By: #### [id number] #### [facility] [address] [place] [address]Prqobfslu/Leukocytes Auto (Bld) [Pure # fraction]0.1 E9/LNormal 0.0-0.2FMercy Health Willard HospitalComment on above:Performed By: #### [id number] #### [facility] [address] [place] [address]Wbrumcxuisw (Bld) [#/Vol]0.1 E9/LNormal0.0-0.5FMercy Health Willard HospitalComment on above:Performed By: #### [id number] #### [facility] [address] [place] [address]Lawqxyboaqc/100 WBC (Bld)0.6 %Normal0.0-8.0[facility] HospitalComment on above:Performed By: #### [id number] #### [facility] [address] [place] [address]Teyoebpvlim distribution width (RBC) [Ratio]13.1 %Normal 10.9-14.2FMercy Health Willard HospitalComment on above:Performed By: #### [id number] #### [facility] [address] [place] [address]Ofcfnwuckj (Bld) [Volume fraction]42.6 %Tfslka79.0-46.0[facility] HospitalComment on above:Performed By: #### [id number] #### [facility] [address] [place] [address]Rupcnguxzo (Bld) [Mass/Vol]14.7 g/yADurmxx08.0-16.0[facility] HospitalComment on above:Performed By: #### [id number] #### [facility] [address] [place] [address]Utzfhufxtpa (Bld) [#/Vol]2.2 E9/LNormal1.0-4.0[facility] HospitalComment on above:Performed By: #### [id number] #### [facility] [address] [place] [address]Wostveoqrek/100 WBC (Bld)18.7 %Cewqyy55.0-50.0[facility] HospitalComment on above:Performed By: #### [id number] #### [facility] [address] [place] [address]LRD (RBC) [Entitic mass]31.5 yqTbrmpv56.0-34.0[facility] HospitalComment on above:Performed By: #### [id number] #### [facility] [address] [place] [address]ZSMS (RBC) [Mass/Vol]34.5 g/yHNopskn76.4-36.0[facility] HospitalComment on above:Performed By: #### [id number] #### [facility] [address] [place] [address]CWK (RBC) [Entitic vol]91.3 bUVjsdai87.0-100.0[facility] HospitalComment on above:Performed By: #### [id number] #### [facility] [address] [place] [address]Sjpllwefn (Bld) [#/Vol]0.6 E9/LNormal0.2-1.0[facility] HospitalComment on above:Performed By: #### [id number] #### [facility] [address] [place] [address]Wvdoghtyixi (Bld) [#/Vol]8.7 E9/LHigh2.0-7.5FMercy Health Willard HospitalComment on above:Performed By: #### [id number] #### [facility] [address] [place] [address]Ygwblaltkrw/100 WBC (Bld)75.4 %High36.0-75.0[facility] HospitalComment on above:Performed By: #### [id number] #### [facility] [address] [place] [address]Rzfihrqu mean volume (Bld) [Entitic vol]8.9 fLNormal6.4-10.8 [facility] HospitalComment on above:Performed By: #### [id number] #### [facility] [address] [place] [address]Vtjtulabp (Bld) [#/Vol]173.0 E9/UIenayl132.0-500.0[facility] HospitalComment on above:Performed By: #### [id number] #### [facility] [address] [place] [address]HLN (Bld) [#/Vol]4.7 E12/LNormal4.3-5.9[facility] HospitalComment on above:Performed By: #### [id number] #### [facility] [address] [place] [address]MAC corrected for nucl RBC Auto (Bld) [#/Vol]11.5 E9/LHigh 4.0-11.0[facility] Medical CenterComment on above:Performed By: #### [id number] #### [facility] [address] [place], [place] [address]AKACZFALJYyxxrph By: SYSTEM SYSTEM on 82-09-5871Juttbog [Mass/Vol]4.3 g/dLNormal3.3 - 5.0 gm/dLRemisol ChemAlbumin/Globulin [Mass ratio] 2.0 {ratio}Normal1.1 - 2.2Remisol ChemALP [Catalytic activity/Vol]28 [iU]/d Sgenoc83 - 98 Int._Unit/LRemisol ChemALT No additional P-5'-P [Catalytic activity/Vol]14 [iU]/dNormal6 - 46 Int._Unit/LRemisol ChemAST [Catalytic activity/Vol]14 [iU]/dNormal5 - 43 Int._Unit/LRemisol ChemBilirubin [Mass/Vol] 1.0 mg/dLNormal0.0 - 1.1 mg/dLRemisol ChemBilirubin.direct [Mass/Vol]0.1 mg/dL Normal0.0 - 0.4 mg/dLRemisol ChemBilirubin.indirect [Mass or moles/Vol]0.9 mg/dL Normal0.1 - 0.9 mg/dLRemisol ChemGlobulin (S) [Mass/Vol]2.1 g/dLNormal1.4 - 4.0 gm/dLRemisol ChemLipase [Catalytic activity/Vol]18 U/RZoitxz37 - 58 unit/L Remisol ChemProtein [Mass/Vol]6.4 g/dLNormal6.0 - 7.8 gm/dLRemisol ChemTroponin HS2.40 pg/mLLow10.10 - 27.10 pg/mLRemisol ChemComment on above:Interpretive Data: The 95% CI (Confidence Interval) PPV (Positive Predictive Value) for myocardial infarction in females is 38 pg/mL, in males 51 pg/mL. The results should be used in conjunction withclinical conditions of myocardial infarction. (Access High Sensitivity Troponin I Instructions For Use, Carlos Bangs, December 2017)Anion gap [Moles/Vol]10 mmol/LNormal6 - 16 mEq/LRemisol ChemCalcium [Mass/Vol]9.7 mg/dLNormal8.9 - 11.1 mg/dLRemisol ChemChloride [Moles/Vol]103 mmol/UIbkuwh915 - 111 mmol/LRemisol ChemCO2 [Moles/Vol]29 mmol/IJtlsnc61 - 31 mmol/LRemisol ChemCreatinine [Mass/Vol]0.9 mg/dLNormal0.5 - 1.3 mg/dLRemisol GhkvnJGY75 mL/min/1.73 a6Ggkejv>=59mL/min/1.73 q2Gfobhbh ChemGlucose [Mass/Vol] 92 mg/wQSlvkgw79 - 199 mg/dLRemisol ChemPotassium [Moles/Vol]4.3 mmol/LNormal3.5 - 5.3 mmol/LRemisol ChemSodium [Moles/Vol]138 mmol/XFclase510 - 145 mmol/L Remisol ChemTroponin HS2.70 pg/mLLow10.10 - 27.10 pg/mLRemisol ChemComment on above:Interpretive Data: The 95% CI (Confidence Interval) PPV (Positive Predictive Value) for myocardial infarction in females is 38 pg/mL, in males 51 pg/mL. The results should be used in conjunction withclinical conditions of myocardial infarction. (Access High Sensitivity Troponin I Instructions For Use, Carlos [employer], December 2017)Urea nitrogen [Mass/Vol]17 mg/dLNormal5 - 21 mg/dLRemisol ChemUrea nitrogen/Creatinine [Mass ratio]19 mg/yzIfzxpo50 - 20Remisol ChemCOAGULATION Ordered By: Nicky Sanches on 61-27-7686eMZI Coag (PPP) [Time]29.0 zWcewzc10.1 - 36.5 second(s)[facility] Auto CoagComment on above:Interpretive Data: Parameter 15 days - 4 weeks 1 [...] the same coagulation reagent and instrumentation as [facility]. Currently there are no coagulation studies available worldwide for children to 14 days, andno normal ranges. Heparin therapeutic range (represented by Anti-Factor Xa activity of 0.2 - 0.4 U/mL) corresponds to PTT of 56.6 - 109.0 sec.INR Coag (PPP) [Relative time]1.05 {INR}Invalid Interpretation CodeCLAREMORE INDIAN HOSPITAL [facility] Auto CoagComment on above:Interpretive Data: INR results are specifically intended to assess patients stabilized on long-term Anticoagulation therapy suggested INR s Less Intensive Anticoagulation 2.0 3.0 Conventional Range 3.0 4.5PT Coag (PPP) [Time]11.8 sNormal9.4 - 12.5 second(s) [facility] Auto CoagComment on above:Interpretive Data: 15 days - 4 weeks 1 - [...] the same coagulation reagent and instrumentation as [facility]. Currently there are no coagulation studies available worldwide for children to 14 days, andno normal ranges.ED Clinical Summaryon 19-02-8678QW Clinical SummaryED Clinical Summary [address] [address] ED Clinical Summary Person Information Name: NIKKI MARTINS/[place] Age: 43 Years : 1980 Sex: Female Language: Swiss PCP: CYNDI EPPERSON CNP Marital Status: Single [...] 12/19/2023 23:16:39 12/19/2023 23:16:39 12/19/2023 23:16:39 ADDRESS: [address] [place] [phone] PHYS DOC NOTES: MEDICAL INFORMATION: Prescriptions Given: New Medications [id number], [address], [place] [id number], [phone] dicyclomine (Bentyl 10 mg Cap) 1 Capsules By Mouth every 6 hours as needed Spasm for 7 Days. Refills: 0. tramadol (traMADOL 50 mg Tab) 0.5-1 tab(s) By Mouth every 6 hours as needed as needed for pain. Refills: 0. PATIENT EDUCATION INFORMATION: Instructions: Hepatomegaly, Waxz-bi-Ferc; Abdominal Pain, Adult Follow up: With: Address: When: Booker Shelley [address] [facility], [address], [address] [phone] Business (1) In 3 days 12/22/2023 With: Address: When: CYNDI EPPERSON [address], [place] [id number] [phone] Business (1) In 3 days DIAGNOSIS: 1:Acute abdominal pain; 2:HepatomegalyNormalSt. Luke'S Hospitaler [facility] Hospital CenterED Patient Summaryon 67-41-5606DA Patient SummaryED Patient Summary [address] [address] Patient Discharge Instructions Person Information Name: NIKKI MARTINS Age: 43 Years Arrival Date: 12/19/2023 15:58:56 Discharge Diagnosis: 1:Acute abdominal pain; 2:Hepatomegaly Primary Care Physician: CYNDI EPPERSON CNP Provider Information Primary Provider: Reza Bedoya DO Advanced Temporary Administrative Assistant:None The exam and treatment you received in the Emergency Department were for an urgent problem and are not intended as complete care. It is important that you follow up with a doctor, nurse practitioner,or physician?s clinical trial assistant for ongoing care. If your symptoms [...] Instructions: With: Address: When: Booker Shelley [address], [address], [address] [phone] Business (1) In 3 days 12/22/2023 With: Address: When: CYNDI EPPERSON [address], [place] [phone] [employer] (1) In 3 days In the event that this physician does not participate in your insurance network, please consult with your insurance company to find a nearby participating provider. Patient Education Materials: Hepatomegaly, Zskx-tv-Aytt; Abdominal Pain, Adult A MESSAGE TO ALL PATIENTS REGARDING OPIOIDS PRESCRIPTION OPIOIDS: WHAT YOU NEED TO KNOW Prescription opioids can be used to help relieve weputkhi-jc-vqidla pain and are often prescribed following a [...] and have fewer risks and side effects. Optionsmay include: ? Pain relievers such as acetaminophen, [...] your community drug take- back program or yourKnewCoinrmOne to the World mail-back program, or flush them down the toilet, following guidance from the Food and Drug Administration (www.fda.gov/Drugs/ResourcesForYou). ? Visit www.cdc.gov/drugoverdose to learn about the risks of opioids abuse (more content not included)...[facility] HospitalHEMATOLOGYOrdered By: SYSTEM SYSTEM on 98-93-6667Uxdxbjgys/100 WBC (Bld)0.5 %Normal0.0 - 2.0 %Remisol HemeBasophils/Leukocytes Auto (Bld) [Pure # fraction]0.1 E9/LNormal0.0 - 0.2 E9/LRemisol HemeEosinophils (Bld) [#/Vol]0.1 E9/LNormal0.0 - 0.5 E9/LRemisol HemeEosinophils/100 WBC (Bld)0.6 %Normal0.0 - 8.0 %Remisol HemeErythrocyte distribution width (RBC) [Ratio]13.1 %Gymktz12.9 - 14.2 %Remisol HemeHematocrit (Bld) [Volume fraction]42.6 %Mxdjev31.0 - 46.0 %Remisol HemeHemoglobin (Bld) [Mass/Vol]14.7 g/hXWelivu56.0 - 16.0 gm/dLRemisol HemeLymphocytes (Bld) [#/Vol] 2.2 E9/LNormal1.0 - 4.0 E9/LRemisol HemeLymphocytes/100 WBC (Bld)18.7 %Normal 14.0 - 50.0 %Remisol HemeMCH (RBC) [Entitic mass]31.5 bpPsokwk55.0 - 34.0 pg Remisol HemeMCHC (RBC) [Mass/Vol]34.5 g/oVZnaede45.4 - 36.0 gm/dLRemisol HemeMCV (RBC) [Entitic vol]91.3 nHTmcncn82.0 - 100.0 fLRemisol HemeMonocytes (Bld) [#/Vol]0.6 E9/LNormal0.2 - 1.0 E9/LRemisol HemeMonocytes/100 WBC (Bld)4.8 % Normal4.0 - 14.0 %Remisol HemeNeutrophils (Bld) [#/Vol]8.7 E9/LHigh2.0 - 7.5 E9/LRemisol HemeNeutrophils/100 WBC (Bld)75.4 %High36.0 - 75.0 %Remisol Heme Platelet mean volume (Bld) [Entitic vol]8.9 fLNormal6.4 - 10.8 fLRemisol Heme Platelets (Bld) [#/Vol]173.0 E9/SAqfkvo638.0 - 500.0 E9/LRemisol HemeRBC (Bld) [#/Vol]4.7 E12/LNormal4.3 - 5.9 E12/LRemisol HemeWBC corrected for nucl RBC Auto (Bld) [#/Vol]11.5 E9/LHigh4.0 - 11.0 E9/LRemisol HemeHep Func Panelon 79-36-8690Uipnegs [Mass/Vol]4.3 g/dLNormal3.3-5.0[facility] Comment on above:Performed By: #### [id number] #### [facility] [address], [place] [address]Xhtqflc/Globulin (S) [Mass conc ratio]2.8Nvrryy7.1-2.2FMercy Health Willard HospitalComment on above:Performed By: #### [id number] #### [facility] [address], [place] [address]SGA [Catalytic activity/Vol]28 Int._Unit/OIegxeg00-00AbjmzmGeorgetown Behavioral HospitalComment on above:Performed By: #### [id number] #### [facility] [address], [place] [address]XAY No additional P-5'-P [Catalytic activity/Vol]14 Int._Unit/L Normal6-46[facility] HospitalComment on above:Performed By: #### [id number] #### [facility] [address] [place] [address]NBW [Catalytic activity/Vol]14 Int._Unit/LNormal5-43[facility] HospitalComment on above:Performed By: #### [id number] #### [facility] [address], [place] [address]Opjgaxceg [Mass/Vol]1.0 mg/dLNormal0.0-1.1FMercy Health Willard HospitalComment on above:Performed By: #### [id number] #### [facility] [address], [place] [address]Xfxkewbzy.direct [Mass/Vol]0.1 mg/dLNormal0.0-0.4FMercy Health Willard HospitalComment on above:Performed By: #### [id number] #### [facility] [address], [place] [address]Dsnxwajym.indirect [Mass or moles/Vol]0.9 mg/dLNormal0.1-0.9 [facility] HospitalComment on above:Performed By: #### [id number] #### [facility] [address], [place] [address]Nftewmnr (S) [Mass/Vol]2.1 g/dLNormal1.4-4.0[facility] HospitalComment on above:Performed By: #### [id number] #### [facility] [address], [place] [address]Sgwyhxa [Mass/Vol]6.4 g/dLNormal6.0-7.8[facility] HospitalComment on above:Performed By: #### [id number] #### [facility] [address], [place] [address]Fjggbw Levelon 07-85-8778Nozrkv [Catalytic activity/Vol]18 U/L Alczhi80-00YtcpubGeorgetown Behavioral HospitalComment on above:Performed By: #### [id number] #### [facility] [address], [place] [address]NS & PTTon 93-00-2084cTHE Coag (PPP) [Time]29.0 second(s)Normal 25.1-36.5FMercy Health Willard HospitalComment on above:Result Comment: Parameter 15 days - 4 weeks [...] the same coagulation reagent and instrumentation as [facility]. Currently there are no coagulation studies available worldwide for children to 14 days, andno normal ranges. Heparin therapeutic range (represented by Anti-Factor Xa activity of 0.2 - 0.4 U/mL) corresponds to PTT of 56.6 - 109.0 sec.Performed By: #### [id number] #### [facility] [address], [place] [address]ZPC Coag (PPP) [Relative time]1.05 {INR}Invalid Interpretation CodeFishUniversity of Maryland St. Joseph Medical CenterComment on above:Result Comment: INR results are specifically intended to assess patients stabilized on long-term Anticoagulation therapy suggested INR?s ?Less Intensive Anticoagulation? 2.0 ? 3.0 Conventional Range 3.0 ? 4.5Performed By: #### [id number] #### [facility] [address], [place] [address]CF Coag (PPP) [Time]11.8 second(s)Normal9.4-12.5FMercy Health Willard HospitalComment on above:Result Comment: 15 days - 4 weeks 1 [...] the same coagulation reagent and instrumentation as [facility]. Currently there are no coagulation studies available worldwide for children to 14 days, andno normal ranges.Performed By: #### [id number] #### [facility] [address], [place] [address]Qsifzjng 0 Hr.on 34-55-7281Jbzjzxvl HS2.70 pg/mLLow10.10-27.10 [facility] HospitalComment on above:Result Comment: The 95% CI (Confidence Interval) PPV (Positive Predictive Value) for myocardial infarction in females is 38 pg/mL, in males 51 pg/mL. The results should be used in conjunction with clinical conditions of myocardial infarction. (Access High Sensitivity Troponin I Instructions For Use, [employer], December 2017)Performed By: #### [id number] #### [facility] [address], [place] [address]Jzidsvyo 1 Hr.on 98-24-8517Pdgzehvw HS2.40 pg/mLLow10.10-27.10 [facility] HospitalComment on above:Order Comment: 1809Result Comment: The 95% CI (Confidence Interval) PPV (Positive Predictive Value) for myocardial infarction in females is 38 pg/mL, in males 51 pg/mL. The results should be used in conjunction with clinical conditions of myocardial infarction. (Access High Sensitivity Troponin I Instructions For Use, [employer], December 2017)Performed By: #### [id number] #### [facility] [address], [place] [address]UB RIGHT UPPER QUADRANTon 35-68-1314[place], [place] [address] Ultrasound Report Signed Patient: NIKKI MARTINS MR#: [id number] : 1980 Acct:[id number] Age/Sex: 43 / F ADM Date: 12/16/23 Loc: US Attending Dr: Mayuri Diaz M.D. Ordering Physician: Mayuri Diaz Date of Service: 12/16/23 Procedure(s): US right upper quadrant Accession Number(s): [id number] cc: Cyndi Epperson BRAKE ENGINEER; Mayuri Diaz [address] [address] Patient Name: NIKKI MARTINS MRN: [id number] date: 1980 Sex: F Assigned Patient Location: US Current Patient Location: US Accession/Order Number: [id number] Exam Date: 12/16/2023 14:05 Report Date: 12/16/2023 [...] abnormality of the liver. Electronically authenticated by: RAMYA LAYNE Date: 12/16/2023 15:43 Dictated By: Ramya Layne M.D. Signed By: 12/19/23 0851 DD/ 1543 TD/TT: Infection Control Preventionist:TBHRadiology, Radiologist, MD - 12/19/2023 [place] [address] Ultrasound Report Signed Patient: NIKKI MARTINS MR#: [id number] : 1980 Acct:[id number] Age/Sex: 43 / F ADM Date: 12/16/23 Loc: US Attending Dr: Mayuri Diaz M.D. Ordering Physician: Mayuri Diaz Date of Service: 12/16/23 Procedure(s): US right upper quadrant Accession Number(s): [id number] cc: Cyndi Epperson BRAKE ENGINEER; Mayuri Diaz [address] [place] [id number] Patient Name: NIKKI MARTINS MRN: [id number] date: 1980 Sex: F Assigned Patient Location: US Current Patient Location: US Accession/Order Number: [id number] Exam Date: 12/16/2023 14:05 Report Date: 12/16/2023 [...] abnormality of the liver. Electronically authenticated by: RAMYA LAYNE Date: 12/16/2023 15:43 Dictated By: Ramya Layne M.D. Signed By: 12/19/23 0851 DD/ 1543 TD/TT: Infection Control Preventionist: SHANNAN Delgado RIGHT UPPER QUADRANTOrdered By: Radiologist Radiology on 01-79-4992BEYZ [employer] Work Phone: eGFRon 83-00-1382vMFV11 mL/min/1.73 o3Jqldud>=59Fisher [facility] Medical CenterComment on above:Order Comment: Order added by Discern Expert.Performed By: #### [id number] #### [facility] [address], [place] [address]ZS RIGHT UPPER QUADRANTon 85-74-8463Rishutirz Study observation (narrative)SHANNAN CortesMG [facility]NO[facility] 3D VALENT[place] CADon 93-27-2471BO [facility] DIAGNOSTIC 3D [place] CADPatient: NIKKI MARTINS Exam Date: 04/08/2022 : 1980 Gender:F Ordering : KP EPPERSON AUTOMATION ENGINEERING MANAGER Admission #: [id number] Family : Order #: [id number] CLICK HERE TO VIEW EXAM RADIOLOGY REPORT [...] pancreatic cancer at age 55. LOCATION: [facility] BREAST COMPOSITION: Heterogeneously dense,which may obscure small [...] LUMP SHOULD BE BIOPSIED. Dictated by: Mike Lamb MD on 04/08/2022 at 15:20 Approved by: Mike Lamb MD on 04/08/2022 at 15:21Ohio[facility]field HospitalUS BREAST VALENT[place] LIMITEDon 72-33-9160AA BREAST VALENT[place] LIMITEDPatient: NIKKI MARTINS Exam Date: 04/08/2022 : 1980 Gender:F Ordering : KP EPPERSON [facility] Admission #: [id number] Family : Order #: [id number] CLICK HERE TO VIEW EXAM RADIOLOGY REPORT [...] pancreatic cancer at age 55. LOCATION: [facility] BREAST COMPOSITION: Heterogeneously dense,which may obscure small [...] LUMP SHOULD BE BIOPSIED. Dictated by: Mike Lamb MD on 04/08/2022 at 15:20 Approved by: Mike Lamb MD on 04/08/2022 at 15:21NormalThMercy Health – The Jewish HospitalBUN on 17-28-3333Uyxg nitrogen [Mass/Vol]18.0 mg/dLNormal7.0-18.0The [facility] DaytonComment on above:Performed By: #### BUN CREA #### [facility] [address] [place] [address] Dr. Jackie Leonard AUTO DIFFon 31-46-9477QSOR #0.0 103/ulNormal0.0-0.1The [facility] DaytonComment on above:Performed By: #### PTT, PT #### [facility] [address] [place] [address] Dr. Jackie Mcguiresophils/100 WBC (Bld)0.2 %Normal0.2-2.0The [facility] Comment on above:Performed By: #### PTT, PT #### [facility] [address] [place] [address] Dr. Jackie Austin #0.1 103/ulNormal0.0-0.7The [facility] DaytonComment on above: Performed By: #### PTT, PT #### [facility] [address] [place], [place] [id number] Dr. Jackie Reynoldsosinophils/100 WBC (Bld)0.4 %Critically low0.9-7.0The [facility] DaytonComment on above:Performed By: #### PTT, PT #### [facility] [address] [place] [address] Dr. Jackie Reynoldsrythrocyte distribution width (RBC) [Ratio]12.8 %Hpxmth25.0-15.0 The [facility] DaytonComment on above:Performed By: #### PTT, PT #### [facility] [address] [place] [address] Dr. Jackie BhardwajHematocrit (Bld) [Volume fraction]30.7 %Critically low36.0-48.0 [facility] on above:Performed By: #### PTT, PT #### [facility] [address] [place] [address] Dr. Jackie BhardwajHemoglobin (Bld) [Mass/Vol]10.3 g/dLCritically low12.0-16.0The [facility] Southment on above:Performed By: #### PTT, PT #### [facility] [address] [place] [address] Dr. Jackie Jung #0.04 10e3/ulCritically high0.00-0.03The [facility] Comment on above:Performed By: #### PTT, PT #### [facility] [address] [place] [address] Dr. Jackie Jung %0.3 %Normal0.0-0.5The [facility] Southment on above: Performed By: #### PTT, PT #### [facility] [address] [place] [address] Dr. Jackie Fink #2.7 103/ulNormal1.2-3.8The [facility] Southment on above:Performed By: #### PTT, PT #### [facility] [address] [place] [address] Dr. Jackie Menesesmphocytes/100 WBC (Bld)21.0 %Aprmwl14.5-60.0The [facility]ville HospitalComment on above:Performed By: #### PTT, PT #### [facility] [address] [place] [address] Dr. Jackie Ortiz DIFF REQNONormalThe [facility] DaytonComment on above: Performed By: #### PTT, PT #### [facility] [address] [place] [address] Dr. Jackie Iglesias (RBC) [Entitic mass]30.7 zqFqsmfd32.7-34.0The [facility] DaytonComment on above:Performed By: #### PTT, PT #### [facility] [address] [place] [address] Dr. Jackie Iglesias (RBC) [Mass/Vol]33.6 g/wKFtrmoq39.9-35.2The [facility] DaytonComment on above:Performed By: #### PTT, PT #### [facility] [address] [place] [address] Dr. Jackie Fairchild (RBC) [Entitic vol]91.6 uAMqhxin64.0-99.0The [facility] DaytonComment on above:Performed By: #### PTT, PT #### [facility] [address] [place] [address] Dr. Jackie Schmid #0.8 103/ulNormal0.3-0.8The [facility] DaytonComment on above:Performed By: #### PTT, PT #### [facility] [address] [place] [address] Dr. Jackie Mejiaocytes/100 WBC (Bld)6.2 %Normal1.7-12.0[facility] Comment on above:Performed By: #### PTT, PT #### [facility] [address] [place] [address] Dr. Jackie Messina #9.2 103/ulCritically high1.4-6.5The [facility] Comment on above:Performed By: #### PTT, PT #### [facility] [address] [place] [address] Dr. Yilan ChangNeutrophils/100 WBC (Bld)71.9 %Ngrsfi47.0-75.0The [facility] Southment on above:Performed By: #### PTT, PT #### [facility] [address] [place] [address] Dr. Jackie Santos mean volume (Bld) [Entitic vol]11.2 fLNormal9.5-13.5The [facility] DaytonCommunson healthcare [facility] on above:Performed By: #### PTT, PT #### [facility] [address] [place] [address] Dr. Jackie BhardwajPLT135 103/ulCritically oer901-207Our [facility] on above:Performed By: #### PTT, PT #### [facility] [address] [place] [address] Dr. Jackie BhardwajRBC3.35 106/ulCritically low4.20-5.40The [facility] on above:Performed By: #### PTT, PT #### [facility] [address] [place] [address] Dr. Jackie BhardwajWBC12.8 103/ulCritically high4.0-11.0The [facility] on above:Performed By: #### PTT, PT #### [facility] [address] [place] [address] Dr. Jackie Whitten 56-53-8511Cbstmakewn [Mass/Vol]0.72 mg/dLNormal 0.55-1.02The [facility] on above:Performed By: #### BUN, CREA #### [facility] [address] [place] [address] Dr. Mejia ChangEGFR-AF COSTA RICAN>60Normal>=60The [facility] on above:Performed By: #### BUN, CREA #### [facility] [address] [place] [address] Dr. Jackie ReynoldsGFR-NON AF COSTA RICAN>60Normal>=60The [facility] on above:Performed By: #### BUN, CREA #### [facility] [address] [place] [address] Dr. Jackie BhardwajANTIBODY ID PANELon [id number] ID PANELAntibody ID Anti-D Blood Bank Notes testing performed at [facility]Commun[facility] on above:Performed By: #### PTT, PT #### [facility] [address] [place] [address] Dr. Jackie BhardwajPREGNANCY URon 85-80-6724BAESOGJFU, QUALNegativeNormalNEGATIVEThe [facility] DaytonCommunson healthcare [facility] on above:Performed By: #### PTT, PT #### [facility] [address] [place] [address] Dr. Jackie BhardwajCovid-19 PCR (CVDTB)on 61-59-1745HHEN-CoV-2 (COVID-19) RNA JOHN+probe Ql (Unsp spec)Not detectedNormalNOT DETECTEDThe [facility] Comment on above:Result Comment: This test is not yet approved or cleared by the [place] FDA. When there are no FDA-approved or cleared tests available, and other criteria are met, FDA can make tests available under an emergency access mechanism called an Emergency Use Authorization (EUA). The EUA for this test is supported by the [place] of Health and Human Service's (HHS's) declaration that circumstances exist to justify the emergency use of in vitro diagnostics for the detection and/or diagnosis of the virus that causes COVID- 19. This EUA will remain in effect (meaning [...] of clinical signs and symptoms consistent with SARS-CoV-2.Performed By: #### CVDTBH #### [facility] [address] [place] [address] Dr. Jackie BhardwajTYPE AND SCREENon 24-66-4671BRKO AND SCREENNegativeOhioHealth Mansfield HospitalCommunson healthcare grayling hospital on above:Performed By: #### PTT, PT #### [facility] [address] [address] [address] Jackie Lee PROFILEon 79-15-4975Lnwcqfv [Mass/Vol]4.1 g/dLNormal3.4-5.0 The [facility] Southment on above:Performed By: #### LIVER, BMP #### [facility] [address] [address] [address] Jackie BhardwajAlbumin/Globulin [Mass ratio]1.6 {ratio}NormalThe [facility] DaytonComment on above:Performed By: #### LIVER, BMP #### [facility] [address] [address] [address] Jackie Oconnor [Catalytic activity/Vol]41 U/LCritically aot12-118Cee [facility] DaytonComment on above:Performed By: #### LIVER, BMP #### [facility] [address] [place] [address] Dr. Jackie Nicholson [Catalytic activity/Vol]16 U/JRmkxee41-31Dld [facility] DaytonComment on above:Performed By: #### LIVER, BMP #### [facility] [address] [place] [address] Dr. Jackie BhardwajAST [Catalytic activity/Vol]14 U/LCritically tco71-92Mfn [facility] DaytonComment on above:Performed By: #### LIVER, BMP #### [facility] [address] [place] [address] Dr. Jackie Charlton, CONJUGATED0.1 mg/dLNormal0.0-0.2The [facility] Comment on above:Performed By: #### LIVER, BMP #### [facility] [address] [place] [address] Dr. Jackie Monteiroirubin [Mass/Vol]0.3 mg/dLNormal0.2-1.0The [facility] Comment on above:Performed By: #### LIVER, BMP #### [facility] [address] [place] [address] Dr. Jackie BhardwajGlobulin (S) [Mass/Vol]2.5 g/dLNormalThe [facility] DaytonComment on above:Performed By: #### LIVER, BMP #### [facility] [address] [place] [address] Dr. Jackie BhardwajProtein [Mass/Vol]6.6 g/dLNormal6.4-8.2[facility] Comment on above:Performed By: #### LIVER, BMP #### [facility] [address] [place] [address] Dr. Jackie BhardwajPROF CHEM 8 (BAS METB)on 49-88-4219Ausig gap [Moles/Vol]11.6 mmol/LNormalThe [facility] DaytonComment on above:Performed By: #### LIVER, BMP #### [facility] [address] [place] [address] Dr. Jackie BhardwajCalcium [Mass/Vol]8.8 mg/dLNormal8.5-10.1[facility] Comment on above:Performed By: #### LIVER, BMP #### [facility] [address] [place] [address] Dr. Jackie BhardwajChloride [Moles/Vol]102 mmol/DZichgd64-797IknMercy Health Anderson Hospital Comment on above:Performed By: #### LIVER, BMP #### [facility] [address] [place] [address] Dr. Jackie BhardwajCO2 [Moles/Vol]28.9 mmol/YJcnohf47.0-32.0[facility] Comment on above:Performed By: #### LIVER, BMP #### [facility] [address] [place] [address] Dr. Jackie BhardwajCreatinine [Mass/Vol]0.78 mg/dLNormal0.55-1.02The [facility] DaytonComment on above:Performed By: #### LIVER, BMP #### [facility] [address] [place] [address] Dr. Jackie ReynoldsGFR-AF COSTA RICAN>60Normal>=60The [facility] DaytonComment on above:Performed By: #### LIVER, BMP #### [facility] [address] [place] [address] Dr. aJckie ReynoldsGFR-NON AF COSTA RICAN>60Normal>=60The [facility] DaytonComment on above:Performed By: #### LIVER, BMP #### [facility] [address] [place] [address] Dr. Jackie BhardwajGlucose [Mass/Vol]81 mg/bSOagbkn19-662LvgMercy Health Anderson Hospital Comment on above:Performed By: #### LIVER, BMP #### [facility] [address] [place] [address] Dr. Jackie BhardwajPotassium [Moles/Vol]3.5 mmol/LNormal3.5-5.1[facility] Comment on above:Performed By: #### LIVER, BMP #### [facility] [address] [place] [address] Dr. Jackie BhardwajSodium [Moles/Vol]139 mmol/QSqzvzx240-404Pwu [facility] Comment on above:Performed By: #### LIVER, BMP #### [facility] [address] [place] [address] Dr. Jackie BhardwajUrea nitrogen [Mass/Vol]21.0 mg/dLCritically high7.0-18.0[facility] HospitalComment on above:Performed By: #### LIVER, BMP #### [facility] [address] [place] [address] Dr. Jackie Vance nitrogen/Creatinine [Mass ratio]26.9 mg/mgNoWadsworth-Rittman HospitalComment on above:Performed By: #### LIVER, BMP #### [facility] [address] [place] [address] Dr. Jackie BhardwajPROTIMEon 46-46-2484BPO Coag (PPP) [Relative time]0.98 {INR} NormalMercy Health Anderson HospitalComment on above:Performed By: #### PTT, PT #### [facility] [address] [place] [address] Dr. Jackie Goodman GUIDELINESSEE BELOWOhioHealth Mansfield HospitalComment on above:Result Comment: DESIRED INR: 2.0 - 3.0 CONDITIONS NOT LISTED BELOW 2.5 - 3.5 FOR PROSTHETIC HEART VALVE REPLACEMENT 2.5 - 3.5 RECURRENT THROMBOSIS Performed By: #### PTT, PT #### [facility] [address] [place] [address] Dr. Jackie Rodarte Coag (PPP) [Time]10.6 sNormal9.0-11.6The [facility] Comment on above:Performed By: #### PTT, PT #### [facility] [address] [place] [address] Dr. Jackie Cardenas 56-73-8177yCDV Coag (Bld) [Time]26.3 iJhxffp85.3-36.2The [facility] DaytonComment on above:Performed By: #### PTT, PT #### [facility] [address] [place] [address] Dr. Jackie Leonard AUTO DIFFon [id number] #0.1 103/ulNormal0.0-0.1The [facility] Hospital DaytonComment on above:Performed By: #### PTT, PT #### [facility] [address] [place] [address] Dr. Jackie Mcguiresophils/100 WBC (Bld)0.6 %Normal0.2-2.0[facility] Comment on above:Performed By: #### PTT, PT #### [facility] [address] [place] [address] Dr. Jackie Austin #0.2 103/ulNormal0.0-0.7The [facility] DaytonComment on above: Performed By: #### PTT, PT #### [facility] [address] [place] [address] Dr. Jackie Reynoldsosinophils/100 WBC (Bld)1.8 %Normal0.9-7.0[facility] Comment on above:Performed By: #### PTT, PT #### [facility] [address] [place] [address] Dr. Jackie Reynoldsrythrocyte distribution width (RBC) [Ratio]12.7 %Zhawlp40.0-15.0 The [facility] DaytonComment on above:Performed By: #### PTT, PT #### [facility] [address] [place] [address] Dr. Jackie BhardwajHematocrit (Bld) [Volume fraction]39.1 %Snwyva90.0-48.0The [facility] DaytonComment on above:Performed By: #### PTT, PT #### [facility] [address] [place] [address] Dr. Jackie BhardwajHemoglobin (Bld) [Mass/Vol]12.8 g/zOJlgtpw98.0-16.0The [facility] DaytonComment on above:Performed By: #### PTT, PT #### [facility] [address] [place] [address] Dr. Jackie Jung #0.03 10e3/ulNormal0.00-0.03The [facility] DaytonComment on above:Performed By: #### PTT, PT #### [facility] [address] [place] [address] Dr. Jackie Jung %0.3 %Normal0.0-0.5The [facility] DaytonComment on above: Performed By: #### PTT, PT #### [facility] [address] [place] [address] Dr. Jackie Fink #3.5 103/ulNormal1.2-3.8The [facility] DaytonCommun[facility] on above:Performed By: #### PTT, PT #### [facility] [address] [place] [address] Dr. Jackie Chavarriahocytes/100 WBC (Bld)32.7 %Gtfauw04.5-60.0The [facility] DaytonComment on above:Performed By: #### PTT, PT #### [facility] [address] [place] [address] Dr. Jackie CalabreseUAL DIFF REQNONormalThe [facility]red Hospital DaytonComment on above: Performed By: #### PTT, PT #### [facility] [address] [place] [address] Dr. Jackie Michaels (RBC) [Entitic mass]30.7 ezNecuzi30.7-34.0The [facility] DaytonComment on above:Performed By: #### PTT, PT #### [facility] [address] [place] [address] Dr. Jackie Iglesias (RBC) [Mass/Vol]32.7 g/fSEktqsd22.9-35.2The [facility] DaytonComment on above:Performed By: #### PTT, PT #### [facility] [address] [place] [address] Dr. Jackie Iglesias (RBC) [Entitic vol]93.8 aOIrglbr36.0-99.0The [facility] DaytonComment on above:Performed By: #### PTT, PT #### [facility] [address] [place] [address] Dr. Jackie Schmid #0.7 103/ulNormal0.3-0.8The [facility] DaytonComment on above:Performed By: #### PTT, PT #### [facility] [address] [place] [address] Dr. Jackie Mejiaocytes/100 WBC (Bld)6.3 %Normal1.7-12.0[facility] Comment on above:Performed By: #### PTT, PT #### [facility] [address] [place] [address] Dr. Jackie Messina #6.2 103/ulNormal1.4-6.5The [facility] DaytonComment on above:Performed By: #### PTT, PT #### [facility] [address] [place] [address] Dr. Jackie Carrilloophils/100 WBC (Bld)58.3 %Rhtvol73.0-75.0The [facility] DaytonComment on above:Performed By: #### PTT, PT #### [facility] [address] [place] [address] Dr. Jackie Wulet mean volume (Bld) [Entitic vol]11.5 fLNormal9.5-13.5The [facility] DaytonComment on above:Performed By: #### PTT, PT #### [facility] [address] [place] [address] Dr. Jackie BhardwajPLT167 103/mjCmquit487-756Hzo [facility] DaytonComment on above: Performed By: #### PTT, PT #### [facility] [address] [place] [address] Dr. Jackie BhardwajRBC4.17 106/ulCritically low4.20-5.40The [facility] DaytonComment on above:Performed By: #### PTT, PT #### [facility] [address] [place] [address] Dr. Jackie BhardwajWBC10.6 103/ulNormal4.0-11.0The [facility] DaytonComment on above:Performed By: #### PTT, PT #### [facility] [address] [place] [address] Dr. Jackie Quiñones [id number] [Mass/Vol]73.0 ug/kQHvmufn94.0-170.0The [facility] DaytonComment on above:Performed By: #### PTT, PT #### [facility] [address] [place] [address] Dr. Jackie Mills HCG QUALon [id number], QUALNegativeNormalNEGATIVE The [facility] DaytonComment on above:Performed By: #### PREG #### [facility] [address] [place] [address] Dr. Jackie BhardwajPREGNANCY, QUALNegativeNormalNEGATIVEThe [facility] Hospital DaytonComment on above:Result Comment: Previously reported as: [id number] On 02/01/2022 06:45 By [id number] By: #### PTT, PT #### [facility] [address] [place] [address] Dr. Jackie Moore-19 PCR (CVDTB)on 07-04-8619ZKHL-CoV-2 (COVID-19) RNA JOHN+probe Ql (Unsp spec)Not detectedNormalNOT DETECTEDThe [facility] Comment on above:Result Comment: This test is not yet approved or cleared by the [place] FDA. When there are no FDA-approved or cleared tests available, and other criteria are met, FDA can make tests available under an emergency access mechanism called an Emergency Use Authorization (EUA). The EUA for this test is supported by the [place] of Health and Human Service's (HHS's) declaration that circumstances exist to justify the emergency use of in vitro diagnostics for the detection and/or diagnosis of the virus that causes COVID- 19. This EUA will remain in effect (meaning [...] of clinical signs and symptoms consistent with SARS-CoV-2.Performed By: #### CVDTBH #### [facility] [address] [place] [address] Dr. Jackie Moore-19 PCR ([facility])on 33-28-6977WXTM-CoV-2 (COVID-19) RNA JOHN+probe Ql (Unsp spec)Not detectedNormalNOT DETECTEDThe [facility] Comment on above:Result Comment: This test is not yet approved or cleared by the [place] FDA. When there are no FDA-approved or cleared tests available, and other criteria are met, FDA can make tests available under an emergency access mechanism called an Emergency Use Authorization (EUA). The EUA for this test is supported by the [place] of Health and Human Service's (HHS's) declaration that circumstances exist to justify the emergency use of in vitro diagnostics for the detection and/or diagnosis of the virus that causes COVID- 19. This EUA will remain in effect (meaning [...] of clinical signs and symptoms consistent with SARS-CoV-2.Performed By: #### PTT, PT #### [facility] [address] [place] [address] Dr. Jackie Leonard AUTO DIFFon [id number] #0.1 103/ulNormal0.0-0.1The [facility] DaytonComment on above:Performed By: #### CBC #### [facility] [address] [address] [address] Jackie BhardwajBasophils/100 WBC (Bld)0.4 %Normal0.2-2.0[facility] Comment on above:Performed By: #### CBC #### [facility] [address] [address] [address] Jackie Austin #0.2 103/ulNormal0.0-0.7The [facility] DaytonComment on above: Performed By: #### CBC #### [facility] [address] [place] [address] Dr. Jackie Reynoldsosinophils/100 WBC (Bld)1.6 %Normal0.9-7.0[facility] Comment on above:Performed By: #### CBC #### [facility] [address] [place] [address] Dr. Jackie Reynoldsrythrocyte distribution width (RBC) [Ratio]12.9 %Qewdwt72.0-15.0 The [facility] DaytonComment on above:Performed By: #### CBC #### [facility] [address] [place] [address] Dr. Jackie BhardwajHematocrit (Bld) [Volume fraction]38.5 %Cgdcyp15.0-48.0The [facility] DaytonComment on above:Performed By: #### CBC #### [facility] [address] [address] [address] Jackie BhardwajHemoglobin (Bld) [Mass/Vol]12.8 g/bLLbmnae38.0-16.0The [facility] DaytonComment on above:Performed By: #### CBC #### [facility] [address] [place] [address] Dr. Jackie Jung #0.03 10e3/ulNormal0.00-0.03The [facility] DaytonComment on above:Performed By: #### CBC #### [facility] [address] [address] [address] Jackie Jung %0.3 %Normal0.0-0.5The [facility] DaytonComment on above: Performed By: #### CBC #### [facility] [address] [address] [address] Jackie Fink #3.9 103/ulCritically high1.2-3.8[facility] Comment on above:Performed By: #### CBC #### [facility] [address] [address] [address] Jackie Chavarriahocytes/100 WBC (Bld)33.9 %Wzoaij35.5-60.0The [facility] DaytonComment on above:Performed By: #### CBC #### [facility] [address] [place] [address] Dr. Jackie CalabreseUAL DIFF REQNONormalThe [facility] DaytonComment on above: Performed By: #### CBC #### [facility] [address] [address] [address] aJckie Iglesias (RBC) [Entitic mass]31.4 zjBthyfs85.7-34.0The [facility] DaytonComment on above:Performed By: #### CBC #### [facility] [address] [place] [address] Dr. Jackie Iglesias (RBC) [Mass/Vol]33.2 g/rUWxmrje92.9-35.2The [facility] DaytonComment on above:Performed By: #### CBC #### [facility] [address] [place] [address] Dr. Jackie Iglesias (RBC) [Entitic vol]94.4 xLQgoyej55.0-99.0The [facility] DaytonComment on above:Performed By: #### CBC #### [facility] [address] [place] [address] Dr. Jackie Schmid #0.7 103/ulNormal0.3-0.8The [facility] DaytonComment on above:Performed By: #### CBC #### [facility] [address] [address] [address] Jackie Mejiaocytes/100 WBC (Bld)5.8 %Normal1.7-12.0[facility] Comment on above:Performed By: #### CBC #### [facility] [address] [place] [address] Dr. Jackie KimUT #6.6 103/ulCritically high1.4-6.5[facility] Comment on above:Performed By: #### CBC #### [facility] [address] [place] [address] Dr. Jackie Kimutrophils/100 WBC (Bld)58.0 %Yhpmsw15.0-75.0The [facility] DaytonComment on above:Performed By: #### CBC #### [facility] [address] [place] [address] Dr. Jackie Wulet mean volume (Bld) [Entitic vol]11.4 fLNormal9.5-13.5The [facility] DaytonComment on above:Performed By: #### CBC #### [facility] [address] [place] [address] Dr. Jackie BhardwajPLT168 103/dtLwxnpv463-489Zpb [facility] DaytonComment on above: Performed By: #### CBC #### [facility] [address] [place] [address] Dr. Jackie BhardwajRBC4.08 106/ulCritically low4.20-5.40The [facility] DaytonComment on above:Performed By: #### CBC #### [facility] [address] [place] [address] Dr. Jackie BhardwajWBC11.4 103/ulCritically high4.0-11.0The [facility] DaytonComment on above:Performed By: #### CBC #### [facility] [address] [place] [address] Dr. Jackie Quiñones [id number] [Mass/Vol]41.0 ug/dLCritically low 50.0-170.0The [facility] DaytonComment on above:Performed By: #### PTT, PT #### [facility] [address] [place], [place] [address] Dr. Jackie Gorman VAC ASST BX BRST LT W CLIPon [id number] VAC ASST BX BRST LT W CLIP Begin Addendum #1 COLLECTED DATE/TIME: 09/22/2021 09:43 EDT Final Diagnosis Report for [facility], [place] ULTRASOUND GUIDED CORE BIOPSY, LEFT BREAST [...] will be provided after pathology results are available.NormalThe [facility] Hospital DaytonMAMMO POST BIOPSY LEFTon [id number] POST BIOPSY LEFTPatient: NIKKI MARTINS Exam Date: 09/22/2021 : 1980 Gender:F Ordering : KP EPPERSON CNP Admission #: [id number] Family : Order #: [id number] CLICK HERE TO VIEW EXAM RADIOLOGY REPORT PROCEDURE: MAMMOGRAM POST BIOPSY IMAGES COMPARISON: MG MAMM [facility] DIAG FU, 09/17/2021. INDICATIONS: Mammography abnormal BREAST COMPOSITION: FINDINGS: BIOPSY MARKER: A metallic marker has been placed in the targeted location within the lower-outer quadrant of the left breast. BREAST FINDINGS: Expected post biopsy findings. RECOMMENDATIONS: Dictated by: Ramya Layne M.D. on 09/22/2021 at 10:13 Approved by: Ramya Layne M.D. on 09/22/2021 at 10:14[facility] Vital Signs Date TimeVital SignValuePerforming PduhfvixzFlgfsleb89-72-0521 10:01-0500Body .18 cmLisa Aichholz BRAKE ENGINEER-C Work Phone: [phone]11-10-2025 10:01-0500 Body mass index (BMI) [Ratio]21.6 kg/m2Lisa Aichholz BRAKE ENGINEER-C Work Phone: [phone]11-10-2025 10:01-0500 Body rzaddhyvidu56.5 [degF]Cyndi Aichholz BRAKE ENGINEER-C Work Phone: [phone]11-10-2025 10:01-0500 Body wqqvyl28.65 kgLisa Aichholz BRAKE ENGINEER-C Work Phone: [phone])[address]11-10-2025 10:01-0500 Diastolic blood ijkdbrmu87 mm[Hg]Cyndi Aichholz BRAKE ENGINEER-C Work Phone: [phone])[address]11-10-2025 10:01-0500 Heart rate88 /minLisa Aichholz BRAKE ENGINEER-C Work Phone: [phone])[address]11-10-2025 10:01-0500 Respiratory rate18 /minLisa Aichholz BRAKE ENGINEER-C Work Phone: [phone])[address]11-10-2025 10:01-0500 SaO2% (BldA) [Mass fraction]98 %Cyndi Aichholz BRAKE ENGINEER-C Work Phone: [phone]11-10-2025 10:01-0500 Systolic blood zjpepfkr192 mm[Hg]Cyndi Aichholz BRAKE ENGINEER-C Work Phone: [phone]10-21-2025 15:56-0400 Body hkcryc900.2 cmHossein Potter MD Work Phone: [phone])9-[address] [place], [place] 5903310-21-2025 15:56-0400 Body mass index (BMI) [Ratio]21.77 kg/u9MkwrxqHossein Potter MD Work Phone: 1(691)[address] [place], [place] 1504910-21-2025 15:56-0400 Body cyjxxp21.05 kgHossein Potter MD Work Phone: [phone])[address] [place], [place] 1504910-21-2025 15:56-0400 Diastolic blood mmdueago92 mm[Hg]Hossein Potter MD Work Phone: [phone])[address] [place], [place] 1504910-21-2025 15:56-0400 Heart rate76 /Priya Potter MD Work Phone: [phone] [place], [place] 1504910-21-2025 15:56-0400 Systolic blood dpxkzeuw184 mm[Hg]Hossein Potter MD Work Phone: 1([phone])[address] [place], [place] 1504910-08-2025 12:22-0400 Body mass index (BMI) [Ratio]21.77 kg/p9KwpscVee Cruz MD MPH Work Phone: [phone])[address] [place], [place] 4757910-08-2025 12:22-0400 Body xsopex72.05 kgVee Cruz MD MPH Work Phone: [phone])[address] [place], [place] 4757910-08-2025 12:22-0400 Diastolic blood oajzinsr82 mm[Hg]Vee Cruz MD MPH Work Phone: [phone])[address] [place], [place] 4757910-08-2025 12:22-0400 Heart rate91 /Nicole Cruz MD MPH Work Phone: [phone])[address] [place], [place] 4757910-08-2025 12:22-0400 Systolic blood udywnlkn015 mm[Hg]Vee Cruz MD MPH Work Phone: [phone] [place], [place] 4757909-24-2025 11:17-0400 Body daveqgzgrwl50.3 [degF]Vee Cruz MD MPH Work Phone: [phone])[address] [place], [place] 4757909-24-2025 11:17-0400 Diastolic blood ipvlulfb69 mm[Hg]Vee Cruz MD MPH Work Phone: 1(859)[address] [place], [place] 4757909-24-2025 11:17-0400 Heart rate59 /Nicole Cruz MD MPH Work Phone: [phone])[address] [place], [place] 4757909-24-2025 11:17-0400 Respiratory rate16 /Nicole Cruz MD MPH Work Phone: [phone])[address] [place], [place] 4757909-24-2025 11:17-0400 SaO2% (BldA) [Mass fraction]99 %Vee Cruz MD MPH Work Phone: [phone])[address] [place], [place] 4757909-24-2025 11:17-0400 Systolic blood uuculysh455 mm[Hg]Vee Cruz MD MPH Work Phone: [phone])[address] [place], [place] 4757909-24-2025 05:23-0400 Body mass index (BMI) [Ratio]22.2 kg/j3HamoaVee Cruz MD MPH Work Phone: [phone])[address] [place], [place] 4757909-24-2025 05:23-0400 Body vaokvz53.3 kgVee Cruz MD MPH Work Phone: [phone])[address] [place], [place] 4757909-23-2025 06:01-0400 Body ufpdbd799.2 Emmy Cruz MD MPH Work Phone: [phone] [place], [place] 4757909-10-2025 13:48-0400 Body aryipg508.18 Chao Epperson Work Phone: [facility]09-10-2025 13:48-0400 Body mass index (BMI) [Ratio]21.2 kg/m2Cyndi Epperson Work Phone: [facility]09-10-2025 13:48-0400 Body iddwlkenvjo32.8 [degF]Cyndi Aichholz Work Phone: [facility]09-10-2025 13:48-0400 Body prdsaw14.46 kgLisa Aichholz Work Phone: [phone]09-10-2025 13:48-0400 Diastolic blood ufixazyi04 mm[Hg]Cyndi Aichholz Work Phone: [phone] [employer], [place] 9453509-10-2025 13:48-0400 Heart rate69 /minLisa Aichholz Work Phone: [phone]09-10-2025 13:48-0400 Respiratory rate18 /minLisa Aichholz Work Phone: [phone]09-10-2025 13:48-0400 SaO2% (BldA) [Mass fraction]98 %Cyndi Daveyhholz Work Phone: [phone] [employer], [place] 9453509-10-2025 13:48-0400 Systolic blood bxhpsaqr630 mm[Hg]Cyndi Tameraholz Work Phone: [phone] [employer], [place] 9453506-17-2025 10:18-0400 Body jrjsyi367.2 cmWclair Potter MD Work Phone: [facility]06-17-2025 10:18-0400 Body mass index (BMI) [Ratio]21.61 kg/n6NifvpgHossein Potter MD Work Phone: [facility]06-17-2025 10:18-0400 Body cpbqet05.6 kgHossein Potter MD Work Phone: [facility]06-17-2025 10:18-0400 Diastolic blood llbqcrix01 mm[Hg]Hossein Potter MD Work Phone: [facility]06-17-2025 10:18-0400 Heart rate76 /minHossein Potter MD Work Phone: [facility]06-17-2025 10:18-0400 Systolic blood emmjfcoo961 mm[Hg]Hossein Potter MD Work Phone: [facility]05-09-2025 11:00-0400 Diastolic blood ladrkebv84 mm[Hg]Bisi Pena MD Work Phone: [phone]05-09-2025 11:00-0400 Heart rate68 /Charlene Pena MD Work Phone: [phone]05-09-2025 11:00-0400 Respiratory rate16 /Charlene Pena MD Work Phone: 1(349)[address] [place], [place] 9555305-09-2025 11:00-0400 SaO2% (BldA) [Mass fraction]100 %Bisi Pena MD Work Phone: [phone]05-09-2025 11:00-0400 Systolic blood qwxhifhw100 mm[Hg]Bisi Pena MD Work Phone: [facility]05-09-2025 10:25-0400 Body .8 [degF]Bisi Pena MD Work Phone: [phone]05-09-2025 08:13-0400 Body ykaipq261.2 cmBisi Pena MD Work Phone: [facility]05-09-2025 08:13-0400 Body mass index (BMI) [Ratio]21.44 kg/m2Bisi Pena MD Work Phone: [facility]05-09-2025 08:13-0400 Body uhcppr35.1 kgBisi Pena MD Work Phone: [phone]-[facility]04-07-2025 13:11-0400 Body sfifun944.2 cmBrissa Rain MD Work Phone: [facility]04-07-2025 13:11-0400 Body mass index (BMI) [Ratio]21.46 kg/v7RpdopvBrissa Rain MD Work Phone: [facility]04-07-2025 13:11-0400 Body ikmcyh90.14 Elizabeth Rain MD Work Phone: [facility]04-07-2025 13:11-0400 Diastolic blood itclgttk07 mm[Hg]Brissa Rain MD Work Phone: [facility]04-07-2025 13:11-0400 Heart rate84 /minBrissa Rain MD Work Phone: [facility]04-07-2025 13:11-0400 SaO2% (BldA) [Mass fraction]98 %Brissa Rain MD Work Phone: [facility]04-07-2025 13:11-0400 Systolic blood edvbmcrs008 mm[Hg]Brissa Rain MD Work Phone: [facility]03-31-2025 13:26-0400 Body czdaqg791.5 Emmy Cruz MD MPH Work Phone: [facility]03-31-2025 13:26-0400 Body mass index (BMI) [Ratio]21.14 kg/u9GmyjnVee Cruz MD MPH Work Phone: [facility]03-31-2025 13:26-0400 Body yfpyhg08.14 Mikie Cruz MD MPH Work Phone: [facility]03-31-2025 13:26-0400 Diastolic blood ofglzcjb52 mm[Hg]Vee Cruz MD MPH Work Phone: [facility]03-31-2025 13:26-0400 Heart rate72 /Nicole Cruz MD MPH Work Phone: [facility]03-31-2025 13:26-0400 Systolic blood shjzicqn060 mm[Hg]Vee Cruz MD MPH Work Phone: [facility]03-06-2025 15:16-0500 Diastolic blood nojlngwj41 mm[Hg]Brissa Rain MD Work Phone: [facility] on above: kjljezyj87-25-9095 15:16-0500Heart rate71 /Curtis Rain MD Work Phone: [facility]03-06-2025 15:16-0500 Systolic blood mm[Hg]Brissa Rain MD Work Phone: [facility] on above: fwzrnseo63-65-1166 15:11-0500Respiratory rate16 /Curtis Rain MD Work Phone: [facility]03-06-2025 15:11-0500 SaO2% (BldA) [Mass fraction]99 %Brissa Rain MD Work Phone: [facility]03-06-2025 13:45-0500 Body isasuy278.2 cmBrissa Rain MD Work Phone: [facility]03-06-2025 13:45-0500 Body mass index (BMI) [Ratio]19.73 kg/p0OkrjghBrissa Rain MD Work Phone: [facility]03-06-2025 13:45-0500 Body cdsongmmxfc81.8 [degF]Brissa Rain MD Work Phone: [facility]03-06-2025 13:45-0500 Body sovttk24.15 kgBrissa Rain MD Work Phone: [facility]02-10-2025 08:58-0500 Body qhdtmy253.2 cmBrissa Rain MD Work Phone: [facility]02-10-2025 08:58-0500 Body mass index (BMI) [Ratio]19.73 kg/o5ZpikgzBrissa Rain MD Work Phone: [facility]02-10-2025 08:58-0500 Body dwuvpd66.15 kgBrissa Rain MD Work Phone: [facility]02-10-2025 08:58-0500 Diastolic blood mhzuxtte62 mm[Hg]Brissa Rain MD Work Phone: [facility]02-10-2025 08:58-0500 Respiratory rate16 /minBrissa Rain MD Work Phone: [facility]02-10-2025 08:58-0500 Systolic blood vidxrzqs690 mm[Hg]Brissa Rain MD Work Phone: [facility]01-21-2025 10:28-0500 Body yxdcco24.15 kgHossein Potter MD Work Phone: [facility]01-21-2025 10:28-0500 Diastolic blood zzaecflc08 mm[Hg]Hossein Potter MD Work Phone: [phone]01-21-2025 10:28-0500 Heart rate78 /minHossein Potter MD Work Phone: [phone])[facility]00[facility]01-21-2025 10:28-0500 SaO2% (BldA) [Mass fraction]100 %Hossein Potter MD Work Phone: [phone]01-21-2025 10:28-0500 Systolic blood regivvef721 mm[Hg]Hossein Potter MD Work Phone: [phone]12-23-2024 09:05-0500 Body .5 Chao Epperson NP Work Phone: [facility]iv[facility]fur20-66-7801 09:05-0500Body mass index (BMI) [Ratio]20.03 kg/m2Cyndi Epperson NP Work Phone: [facility] NorthIzwacnygqm67-65-7853 09:05-0500Body temperature 98.49 [degF]Cyndi Philiplori BRAKE ENGINEER Work Phone: [facility] NorthKnidmvlpel15-41-1929 09:05-0500Body lctovg18.88 kgLisa Philiplori BRAKE ENGINEER Work Phone: [facility] NorthIdifqshieu89-02-0005 09:05-0500Diastolic blood tltrzofn38 mm[Hg]Cyndi Tameralori BRAKE ENGINEER Work Phone: [place] [address]Tdwdnhnxux67-51-6579 09:05-0500Heart rate85 /min Cyndi Daveybeatriz BRAKE ENGINEER Work Phone: [place] [address]Ezqqsabhhv21-62-9141 09:05-0500Respiratory rate18 /minLisa Philiplori BRAKE ENGINEER Work Phone: [facility] NorthDjmbnwgxzv20-80-5238 09:05-0018HlT9% (BldA) [Mass fraction]100 %Cyndi Philiplori BRAKE ENGINEER Work Phone: [facility] NorthJvcujczazr11-01-8296 09:05-0500Systolic blood mesmzgue311 mm[Hg]Cyndi Philiplori BRAKE ENGINEER Work Phone: [place] [address]Brawdidghn30-88-1230 08:45-0500Body iwzflb615.5 Chao Zeenat BRAKE ENGINEER Work Phone: [place] [address]Craozzfpie23-56-4021 08:45-0500Body mass index (BMI) [Ratio]19.04 kg/m2Lisa Zeenat BRAKE ENGINEER Work Phone: [place] [phone] 08:45-0500Body temperature 98.49 [degF]Cyndi Mariscalbeatriz BRAKE ENGINEER Work Phone: [place] [address]Sifonflwgn94-90-5510 08:45-0500Body xiuxsk26.97 kgCyndi Zeenat BRAKE ENGINEER Work Phone: [place] [address]Aoudvmwghh87-65-8007 08:45-0500Diastolic blood txqhqrun22 mm[Hg]Cyndi Zeenat BRAKE ENGINEER Work Phone: [facility] NorthNerttwwazn19-41-8804 08:45-0500Heart rate85 /min Cyndi Philiplori BRAKE ENGINEER Work Phone: [facility] NorthDtdraybngp21-47-9542 08:45-0500Respiratory rate19 /minCyndi Daveyvishnulori BRAKE ENGINEER Work Phone: [facility] NorthTlbrakdzwv55-31-5543 08:45-4245CtT1% (BldA) [Mass fraction]99 %Cyndi Philiplori BRAKE ENGINEER Work Phone: [facility] NorthKsgannsusp69-34-4227 08:45-0500Systolic blood qlkbqgka395 mm[Hg]Cyndi Philiplori BRAKE ENGINEER Work Phone: [facility] NorthPeaebsrokm25-03-1319 08:11-0400Blood Pressure LocationMuhammad Sarmini [phone]-RpqurSheltering Arms Hospital11-01-2024 08:11-0400Diastolic blood mm[Hg]Celeste Sarmini [phone]-FrdzfSheltering Arms Hospital11-01-2024 08:11-0400Heart rate82 /minMuhammad Sarmini [phone]-QhhqjSheltering Arms Hospital11-01-2024 08:11-0400Respiratory rate16 /minMuhammad Sarmini [phone]-Usmeq[address] [place], [place] [address]2011-01-2024 08:11-0400Systolic blood ekpgxyay828 mm[Hg]Celeste Sarmini [phone]-XqdccSheltering Arms Hospital10-16-2024 15:04-0400Body .5 Chao Zeenat BRAKE ENGINEER Work Phone: [facility] NorthQhzywkrzvu61-07-9522 15:04-0400Body mass index (BMI) [Ratio]19.91 kg/m2Ciarra Zeenat BRAKE ENGINEER Work Phone: [facility] NorthEsqmscjhgk51-61-2283 15:04-0400Body temperature 99.39 [degF]Cyndi Epperson BRAKE ENGINEER Work Phone: [facility] NorthOffslzxlud57-12-8095 15:04-0400Body emvizf36.51 kgCyndi Epperson BRAKE ENGINEER Work Phone: [facility] NorthGzkauplcib64-82-6787 15:04-0400Diastolic blood ainxzwcr65 mm[Hg]Cyndi Epperson BRAKE ENGINEER Work Phone: [facility] NorthVyukoigaai11-03-5873 15:04-0400Heart rate73 /min Cyndi Epperson BRAKE ENGINEER Work Phone: [facility] NorthWjfuzlxxht10-10-7054 15:04-0400Respiratory rate18 /minLisa Epperson BRAKE ENGINEER Work Phone: [facility] NorthQirqclktce67-74-4746 15:04-6758QfG9% (BldA) [Mass fraction]100 %Cyndi Epperson BRAKE ENGINEER Work Phone: [facility] NorthLeffegqywt02-39-2392 15:04-0400Systolic blood mm[Hg]Cyndi Epperson BRAKE ENGINEER Work Phone: [facility] NorthKpzqsoudtq37-10-6025 12:42-0400Diastolic blood edhqpfui27 mm[Hg]Celeste Sarmini [phone]-PxfjpSheltering Arms Hospital09-12-2024 12:42-0400Mean blood waaxsohm205 mm[Hg]Celeste Sarmini [phone]-WilznSheltering Arms Hospital09-12-2024 12:42-0400Systolic blood ijxjvswk806 mm[Hg]Celeste Sarmini [phone]-JdousSheltering Arms Hospital09-12-2024 12:31-0400Blood Pressure LocationMuhammad Sarmini [phone]-PhiwlDawn [place] [address]-12-2024 12:31-0400Diastolic blood bvuiavga45 mm[Hg]Celeste Nicolemini [phone]-CrjetSheltering Arms Hospital09-12-2024 12:31-0400Heart rate78 /minMuhammad Sarmini [phone]-HinoxSheltering Arms Hospital09-12-2024 12:31-0400Systolic blood wuzbyexq080 mm[Hg]Celeste Nicolemini [phone]-XcukwSheltering Arms Hospital09-04-2024 16:09-0400Body maftjf013.5 cmLisa Zeenat BRAKE ENGINEER Work Phone: [facility] NorthVuyfyulqew65-51-7030 16:09-0400Body mass index (BMI) [Ratio]19.84 kg/m2Ciarrasa Zeenat BRAKE ENGINEER Work Phone: [facility] NorthFxzruvgikw35-37-0476 16:09-0400Body temperature 98.01 [degF]Cyndi Zeenat BRAKE ENGINEER Work Phone: [facility] NorthKgpqfinzws92-70-9783 16:09-0400Body .33 kgLisa Zeenat BRAKE ENGINEER Work Phone: [facility] NorthAyisboaqjn74-62-0647 16:09-0400Diastolic blood mm[Hg]Cyndi Ramiroz BRAKE ENGINEER Work Phone: [facility] NorthEimktwksmu50-56-5216 16:09-0400Heart rate71 /min Cyndi Ramiroz BRAKE ENGINEER Work Phone: [place] [address]Fujeolcvbb70-30-9535 16:09-0400Respiratory rate20 /minLisa Ramiroz BRAKE ENGINEER Work Phone: [place] [address]Ueskgmatkl15-52-1964 16:09-9588ZgB9% (BldA) [Mass fraction]100 %Cyndi Ramiroz BRAKE ENGINEER Work Phone: noSaint [facility] WestWrysiulhch27-50-9195 16:09-0400Systolic blood qqkkebkt774 mm[Hg]Cyndi Epperson NP Work Phone: [facility] NorthHavuvvgzzo16-23-7643 23:00-0400Diastolic blood okjjiwsl25 mm[Hg]Reza Bedoya [address] [place], [place] 2670508-12-2024 23:00-0400Heart rate63 /minJohn Aureliano [address] [place], [place] 2670508-12-2024 23:00-0400 Hourly RoundingReza Bedoya [address] [place], [place] 2670508-12-2024 23:00-0400Mean blood vtgeanqw766 mm[Hg]Reza Bedoya [address] [place], [place] 2670508-12-2024 23:00-0400 Promise to ReturnReza Bedoya [address] [place], [place] 2670508-12-2024 23:00-5554SmC0% (BldA) [Mass fraction]100 %Reza Bedoya [address] [place], [place] 2670508-12-2024 23:00-0400 Systolic blood wogaisfx597 mm[Hg]Reza Bedoya [address] [place], [place] 2670508-12-2024 22:00-0400 Diastolic blood mwdougjc30 mm[Hg]Reza Bedoya [facility]08-12-2024 22:00-0400Heart rate64 /minJoavelina Bedoya [address] [place], [place] 2670508-12-2024 22:00-0400 Hourly RoundingReza Bedoya [address] [place], [place] 2670508-12-2024 22:00-0400Mean blood djqouyoq999 mm[Hg]Reza Bedoya [facility]08-12-2024 22:00-0400 Promise to ReturnJoavelina Aureliano [address] [place], [place] 2670508-12-2024 22:00-0400 Systolic blood ykupftax359 mm[Hg]Reza Bedoya [address] [place], [place] 2670508-12-2024 21:00-0400 Diastolic blood rykekahe09 mm[Hg]Reza Bedoya [address] [place], [place] 2670508-12-2024 21:00-0400Heart rate58 /minReza Bedoya [address] [place], [place] 2670508-12-2024 21:00-0400 Hourly RoundingReza Bedoya [address] [place], [place] 2670508-12-2024 21:00-0400Mean blood dnxpwixm313 mm[Hg]Reza Bedoya [address] [place], [place] 2670508-12-2024 21:00-0400 Promise to ReturnReza Bedoya [address] [place], [place] 2670508-12-2024 21:00-2677BoQ4% (BldA) [Mass fraction]99 %Reza Bedoya [address] [place], [place] 2670508-12-2024 16:05-0400Body bpynjccsgnd81.24 [degF]Reza Bedoya [address] [place], [place] 2670508-12-2024 16:05-0400Heart rate84 /minReza Bedoya [address] [place], [place] 2670508-12-2024 16:05-0400 Respiratory rate18 /minReza Bedoya [address] [place] [address] Encounters Encounter DateEncounter TypeCare ProviderFacilityStart: 03-18-2025 End: 13-32-8487Ctgazufu ReferredCyndi Epperson BRAKE ENGINEER-C-Lab [facility] [place] Work Phone: Start: 96-73-5046Nhkmadvny for gynecological examination (general) (routine) without abnormal findingsCyndi EppersonUf Health North Physician GroupStart: 03-18-2025 End: 39-36-2832rqdcxajydvVkgn J Aichholz BRAKE ENGINEER-C Work Phone: -[facility] ClydeStart: 03-18-2025 End: 12-50-6288Pmdfwoy encounter procedureCyndi Epperson BRAKE ENGINEER-C-[facility] [place] Work Phone: Start: 42-69-5481Pgbockz encounter procedureCyndi Epperson BRAKE ENGINEER-C Work Phone: [facility] 02-26-2025 End: 48-04-1594Tiaxxz follow up visit related to original Candice Potter MD Work Phone: uh [facility] Physician PavilionComment on above:Median arcuate ligament syndrome (Primary Dx); Intercostal neuritisStart: 02-26-2025 End: 12-98-6817lbvmplkcbqXRRDWBProMedica Memorial Hospitaltart: 02-13-2025 End: 10-85-4140Lwyeki follow up visit related to original Everette Cruz MD MPH Work Phone: uh [facility] ClinicsComment on above: Median arcuate ligament syndrome (Primary Dx)Start: 02-13-2025 End: 28-34-8417zwfrsgbencRCHRH [facility]tart: 01-29-2025 End: 68-42-0229Rhugpjmjpc and management of inpatientVee Cruz MD MPH Work Phone: uh [facility] 9Comment on above:Median arcuate ligament syndrome (Primary Dx); Acute post-operative painStart: 38-84-9371Avhqxdgyvq and management of inpatient WO[facility]UP [facility] Cent[facility]art: 01-16-2025 End: 82-03-0605skhvjofsmvDita J Aichholz Work Phone: [facility] Work Phone: Start: 01-16-2025 End: 94-53-2405Hkihrng encounter procedureCyndi Epperson BRAKE ENGINEER-C-[facility] [place] Work Phone: Start: 01-16-2025 End: 78-66-5350Sgngvug encounter statusCyndi Epperson BRAKE ENGINEER-CFiKettering Health Miamisburgtart: 01-16-2025 End: 45-72-2392yiczthsjruQYZS [facility]ertart: 12-26-2024 End: 37-38-2100nctygyvdtrZfjnqvom Talal SarminiFacility:[facility] Hospitaltart: 12-26-2024 End: 97-70-5698Yhvpzfs encounter procedureMuhammad Talal Sarmini [phone]-XrofqOhio [facility] Start: 12-17-2024 End: 39-40-5172Bhrjmapdw department patient visitHans LathamFacility:[facility] Start: 10-23-2024 End: 05-51-3965Revyqy outpatient visit 40 minutesWclair Potter MD Work Phone: uh [facility] Physician PavilionComment on above:Median arcuate ligament syndrome (Primary Dx)Start: 10-23-2024 End: 60-39-2841pmybrdugktTSMVJH M [facility] Hospitaltart: 09-14-2024 End: 10-58-8136Lysbiffbz Result EncounterGeneric External Data ProviderNOMS External Department UnsolicitedStart: 09-14-2024 End: 51-87-8805Vmmzescda Result EncounterGeneric External Data ProviderNOMS External Department UnsolicitedStart: 09-14-2024 End: 15-90-4473Wpsfcjsgrf hospital visit by physicianBisi Pena MD Work Phone: uh [facility] CenterComment on above:Abdominal pain, acute, epigastricStart: 09-14-2024 End: 62-19-6260nebzoufmujYDVY A [facility] Start: 08-24-2024 End: 46-73-1946Pxurirtue Result EncounterGeneric External Data ProviderNOMS External Department UnsolicitedStart: 08-24-2024 End: 54-70-7881Pnohbcreh Result EncounterGeneric External Data ProviderNOMS External Department UnsolicitedStart: 08-24-2024 End: 83-42-2314Umxmbayvet hospital visit by physicianPar X-Ray 2Daniel [facility] HospitalComment on above:Abdominal pain, unspecified abdominal locationStart: 08-24-2024 End: 57-10-9657bqsvnbkyomCXWNE [facility] Start: 08-13-2024 End: 89-23-3630Cfnkgk outpatient visit 25 minutesBrissa Rain MD Work Phone: uh [facility] Comment on above:Median arcuate ligament syndrome (CMS-HCC) (Primary Dx); NeuralgiaStart: 08-13-2024 End: 87-09-2228mogcspybhiSROWBNFirelands Regional Medical Centertart: 08-06-2024 End: 69-62-5411Vmfijx outpatient new 60 Nicole Cruz MD MPH Work Phone: uh [facility] HospitalComment on above:Epigastric pain (Primary Dx); Median arcuate ligament syndrome (CMS-HCC); Hiatal herniaStart: 08-06-2024 End: 45-46-2155rnejevpsegJYSAYNewYork-Presbyterian [facility] AmbulatoryStart: 07-23-2024 End: 59-72-7440sytamsspcdNjgmqqts Talal SarminiFacility:[place] DHStart: 07-12-2024 End: 41-13-6193Cipigcmfwn hospital visit by Jay Rain MD Work Phone: uh [place] CenterComment on above:Epigastric pain; Median arcuate ligament syndrome (CMS-HCC)Epigastric pain; Median arcuate ligament syndromeStart: 07-12-2024 End: 14-46-7137xfgfaotyusMHVUUUSamaritan Hospitaltart: 06-18-2024 End: 59-98-2714Lojezd outpatient new 45 minutesBrissa Rain MD Work Phone: uh [facility] Comment on above:Epigastric pain (Primary Dx); Median arcuate ligament syndrome (CMS-HCC)Start: 06-18-2024 End: 73-61-6928ejzmktcvsxIBDB [facility] Hospitaltart: 06-15-2024 End: 75-72-3249WvuxjjXymx Aichholz BRAKE ENGINEER Work Phone: NOMS CWM FMComment on above:Pain of upper abdomen Start: 05-31-2024 End: 06-23-6292Wcrkklokj Result EncounterGeneric External Data ProviderNOMS External Department UnsolicitedStart: 05-31-2024 End: 13-31-4513Yhiqcpuzh Result EncounterGeneric External Data ProviderNOMS External Department UnsolicitedStart: 05-29-2024 End: 26-76-2923Zdujoo outpatient new 60 minutesHossein Potter MD Work Phone: uh [facility] Physician PavilionComment on above:Median arcuate ligament syndrome (CMS-HCC) (Primary Dx); Hiatal herniaStart: 05-29-2024 End: 62-71-6654zosbtkcersHKGSQAProMedica Memorial Hospitaltart: 05-17-2024 End: 49-29-6949Dydihlxkji hospital visit by physicianRad External FilmEF RAD EXTERNAL FILM VIRTUALComment on above:ArrivedStart: 05-17-2024 End: 43-40-2455xuvkdhimrqNXBEYMWooster Community Hospitaltart: 05-14-2024 End: 31-05-6234OlkqkuXuoi Aichholz BRAKE ENGINEER Work Phone: NOM[facility] CWM FMComment on above:Pain of upper abdomen Start: 05-11-2024 End: 14-50-1852SsvtphKiev Aichholz BRAKE ENGINEER Work Phone: NOM[facility] CWM FMComment on above:Pain of upper abdomen Start: 04-30-2024 End: 43-64-7011Sdciep flowsheetLisa Tameraholz BRAKE ENGINEER Work Phone: NOEM CWM FMStart: 04-30-2024 End: 63-64-6029Wqdzoq flowsheetLisa Tameraholz BRAKE ENGINEER Work Phone: NOMS CWM FMStart: 04-30-2024 End: 50-06-1353Hsgoab outpatient visit 25 minutesLisa Tameraholz BRAKE ENGINEER Work Phone: NOMS CWM FMComment on above:Pain of upper abdomen (Primary Dx); Elevated antinuclear antibody (SERA) levelStart: 04-30-2024 End: 90-52-1990dcjzfucsypUGSX AICHHOLZNot AvailableStart: 94-56-2503tstlpezrpn Booker Jenkins SarminiFacility:[place] DHStart: 04-16-2024 End: 44-75-1743LbnljfOkrw Tameraholz BRAKE ENGINEER Work Phone: NOMS CWM FMComment on above:Pain of upper abdomen Start: 03-28-2024 End: 10-27-5674Vkqhdt flowsheetLisa Tameraholz BRAKE ENGINEER Work Phone: noms CWM FMStart: 03-28-2024 End: 85-50-6230Ogvtlc flowsheetLisa Tameraholz BRAKE ENGINEER Work Phone: NOMS CWM FMStart: 03-28-2024 End: 48-01-5270glqkpafmciYHOS AICHHOLZNot AvailableStart: 03-28-2024 End: 52-97-0970Umirhd outpatient visit 15 minutesLisa Tameraholz BRAKE ENGINEER Work Phone: noMS CWM FMComment on above:Pain of upper abdomen (Primary Dx); Elevated antinuclear antibody (SERA) levelStart: 03-27-2024 End: 16-53-9367Faxsguf encounter Tari Mcdermott DO Work Phone: [facility]-Lab [address] Work Phone: Start: 03-27-2024 End: 42-46-2198innczvocygIyjyha [facility] Work Phone: Start: 26-42-6839nvemxhydllRgltyu Ilyaaday Facility:[facility]tart: 03-17-2024 End: 73-38-4473QlvttnGtxf Aichholz BRAKE ENGINEER Work Phone: noms CWM FMComment on above:Pain of upper abdomen Start: 03-16-2024 End: 92-53-3729Xgwmueovw Result EncounterGeneric External Data ProviderNOMS External Department UnsolicitedStart: 03-16-2024 End: 13-56-4553Pppvktatq Result EncounterGeneric External Data ProviderNOMS External Department UnsolicitedStart: 03-16-2024 End: 59-37-4901krzicyghhhAgwdmoew Talal SarminiFacility:FTMCStart: 03-16-2024 End: 15-50-4158Ahhiwkx encounter procedureMuhammad Talal Sarmini [facility] Start: 03-09-2024 End: 50-39-7882nonfdfmhomVgafhlcy Talal SarminiFacility:[facility] DHStart: 03-09-2024 End: 02-29-4960Tpmcxns encounter procedureMuhammad Talal Sarmini [phone]-SbcziOhio State East Hospital [facility] Start: 03-08-2024 End: 93-62-5658JehjduAfid Aichholz BRAKE ENGINEER Work Phone: noms CWM FMStart: 03-02-2024 End: 38-76-9780lvcoibychxIKRDIehqyzns:[facility]tart: 03-01-2024 End: 58-83-3303Hpkfoh OnlyCyndi Epperson BRAKE ENGINEER Work Phone: noms CWM FMComment on above:Elevated antinuclear antibody (SERA) level (Primary Dx)Start: 02-29-2024 End: 64-24-8347izxkazzunuXYZENGZ [facility] Campustart: 02-22-2024 End: 61-03-0112Kulsor outpatient visit 25 minutesCyndi Epperson BRAKE ENGINEER Work Phone: noms CWM FMComment on above:Pain of upper abdomen (Primary Dx); Enlarged liver; Panic attack (CMS/HCC); Chest tightnessStart: 02-22-2024 End: 66-11-2596wyirrbfkdpSWMO AICHHOLZNot AvailableStart: 02-22-2024 End: 27-28-7651Jiplpagxs Result EncounterLisa Tameraholz BRAKE ENGINEER Work Phone: noms External Department UnsolicitedStart: 02-22-2024 End: 45-77-9774Sgwvgfbxa Result EncounterLisa Ramiroz BRAKE ENGINEER Work Phone: noms External Department UnsolicitedStart: 02-09-2024 Non-patient / Non-visitKyle Deepthi DO Work Phone: [facility] [place] [facility] Work Phone: Start: 02-07-2024 End: 20-26-5823tvhcevseysLphvradr Talal SarminiFacility:FTMCStart: 02-07-2024 End: 12-61-1581Cmexpee encounter procedureMuhammad Talal Sarmini [facility] Start: 02-06-2024 End: 71-29-2935PmlyamGmdx Aichholz BRAKE ENGINEER Work Phone: noms CWM FMComment on above:Pain of upper abdomen Start: 01-27-2024 End: 34-09-7241Mqosfgjnc Result EncounterLisa Tameraholz BRAKE ENGINEER Work Phone: noms External Department UnsolicitedStart: 01-27-2024 End: 24-38-6294Toyrxzifv Result EncounterLisa Tameraholz BRAKE ENGINEER Work Phone: noms External Department UnsolicitedStart: 01-19-2024 End: 42-49-0495jczmnciylkKkypdhuv Talal SarminiFacility:[facility] DHStart: 01-19-2024 End: 26-67-2819Nyaebih encounter procedureMujack hughston memorial hospitald Gregory Chungi [phone]-ZnqrmOhio State East Hospital [facility] Start: 01-11-2024 End: 08-51-1402Blksnx outpatient visit 15 minutesLisa Daveyvishnuaniyaz BRAKE ENGINEER Work Phone: noms CWM FMComment on above:Encounter for screening mammogram for malignant neoplasm of breast (Primary Dx); Pain of upper abdomenStart: 01-11-2024 End: 15-10-8565jbilvhhzguHSXJ SATHYAot AvailableStart: 01-10-2024 End: 49-28-1275Rophvdekx Result EncounterLisa Aichholz BRAKE ENGINEER Work Phone: noms External Department UnsolicitedStart: 01-10-2024 End: 93-20-5148Jtmxvijmr Result EncounterLisa Daveyhholz BRAKE ENGINEER Work Phone: noms External Department UnsolicitedStart: 01-10-2024 End: 60-47-7032llrafciwhpQK Samuel Mcdermott Work Phone: [facility] Work Phone: Start: 01-10-2024 End: 67-55-4244Focrxssb ReferredDO Samuel Mcdermott Work Phone: [facility]-LAB Path Spec Ana HospStart: 01-04-2024 End: 46-33-5595IrjjwkSagc Daveyvishnuholz BRAKE ENGINEER Work Phone: noms CWM FMComment on above:Pain of upper abdomen (Primary Dx)Start: 12-26-2023 End: 32-52-1414orsvhwvrusLCDA JOSEETTNot AvailableStart: 12-22-2023 End: 34-43-2700qbhjnjhumsLPIU RAMIROZNot AvailableStart: 90-23-9410fzuyirbeiz Reza ParenteFacility:[facility]Ed[facility] DHStart: 12-19-2023 End: 52-94-2924Srfpaycbi department patient visitJoMimbres [facility] Hospital [facility] Start: 13-61-8339ofwjcqabmsWuim ParenteFacility:[facility] CenterueStart: 12-16-2023 End: 12-08-4053Vkoenrwbm Result EncounterGeneric External Data ProviderNOMS External Department UnsolicitedStart: 12-16-2023 End: 70-66-1227Kosiqaqsa Result EncounterGeneric External Data ProviderNOMS External Department UnsolicitedStart: 09-17-2022 End: 93-60-5552wembdkyrhnWU WILDER OWENS .Facility:Y5Bekeh: 04-08-2022 End: 42-71-1701qqpdaishzmAU MIKE LAMBFacility:I9Dprvv: 24-40-2757Gtkhoncxu for preprocedural laboratory examinationDR WILDER OWENS .[facility]: 03-22-2022 End: 76-02-5015Yizfspliee and management of inpatientDR WILDER OWENS . Facility:T8Otyfw: 03-18-2022 End: 94-95-4908fyuuwexqrqKH WILDER OWENS .Facility:Y0Uutvq: 03-18-2022 End: 20-89-7966Tcvyebbfy for preprocedural laboratory examinationDR WILDER OWENS .Facility:N2Fmpke: 03-10-2022 End: 75-01-7028vfmaninutlTQ WILDER OWENS .Facility:V7Fjpru: 03-09-2022 End: 74-77-6986lczlufgbavTQM CYNDI Olivarezcility:K5Karuk: 02-01-2022 End: 27-19-9031ydkshxvpeaCR WILDER OWENS .Facility:P7Rmdxd: 01-28-2022 ambulatoryCNP CYNDI AICHHOLZFacility:K4Osebx: 01-27-2022 End: 94-10-4050kqbrbngmmlOF WILDER OWENS .Facility:E7Ndvvx: 01-05-2022 End: 89-12-7777rrjstwcnowKSY CYNDI AICHHOLZFacility:X9Pyntr: 12-29-2021 End: 61-79-6516blsusvwthfYWK CYNDI AICHHOLZFacility:C9Efoai: 74-32-8468fwphfyddma AUTOMATION ENGINEERING MANAGER CYNDI AICHHOLZFacility:U7Kenez: 86-35-9243evylskrwemOLE CYNDI AICHHOLZ Facility:L9Cfmhy: 09-22-2021 End: 73-19-4212vnpykktyzePFZ CYNDI AICHHOLZFacility:H1 Procedures DateProcedureProcedure DetailPerforming ClinicianStart: 01-30-2025 End: 31-53-5774Ilbxd metabolic panel calcium totalKimberrobbin Pederson MD Work Phone: Start: 45-79-1476Omkvj typing serologic rh (d)Vee Cruz MD MPH Work Phone: Start: 01-29-2025 End: 36-01-5474Bhhoiyln laparoscopic px abd pertoneum & omentumWoosup Bonny Potter MD Work Phone: Start: 16-92-3346MMYGY/VERIFY ABORTobias Lackey MD Work Phone: Start: 51-81-4614Uaeio typing serologic rh (d)Ingrid Lackey MD Work Phone: Start: 99-68-3412GMPYK OXIMETRY, Jeison Lackey MD Work Phone: Start: 83-33-5210Cvutcgq balo distension dx std w/provocationDavelasquez Pena MD Work Phone: Start: 50-11-0933Etwbo iv surg pathology gross&microscopic examDavelasquez Pena MD Work Phone: Start: 21-33-2122VZBSEKDS PATHOLOGY EXAMGeneric External Data ProviderStart: 56-35-4877PAYET OXIMETRY, Doni Pena MD Work Phone: Start: 85-98-6915Yjbflkvplp exam upr gi trc single contrast studyLokesh Damico MD Work Phone: Start: 00-29-0828PZ UPPER GI W KUBGeneric External Data ProviderStart: 18-58-1799JH PAIN MANAGEMENTBrissa Rain MD Work Phone: Start: 62-62-2000Bqs sed same phys/qhp initial 15 mins 5/> yrsHarichard Rain MD Work Phone: Start: 69-93-2804RCU MISCELLANEOUS TESTGeneric External Data ProviderStart: 05-17-2024 End: 63-21-0587Xmyoe Interpretation of outside studyWclair Potter MD Work Phone: Start: 05-17-2024 End: 14-02-2059Cdomi Interpretation of outside studyWclair Potter MD Work Phone: Start: 34-68-6950WET W/REFLEX K5Chaqpjm External Data ProviderStart: 41-52-4219JHN AMYLASELisa Aichholz BRAKE ENGINEER Work Phone: Start: 59-46-7167XFX C REACTIVE PROTEINLisa Aichholz BRAKE ENGINEER Work Phone: Start: 59-49-0393BHZ SED RATELisa Aichholz BRAKE ENGINEER Work Phone: Start: 29-75-5715XVZ LIPASELisa Aichholz BRAKE ENGINEER Work Phone: Start: 11-74-5956CnptherahinYfvn Aichholz BRAKE ENGINEER Work Phone: Start: 00-01-4592TJ TOMOSYNTHESIS SCREENING BILisa Aichholz BRAKE ENGINEER Work Phone: Start: 14-58-2796AV HEPATOBILIARY SCAN W PHARMACOLOGICAL INTERVENTIONLisa Aichholz BRAKE ENGINEER Work Phone: Start: 41-51-3264VykrgbqvuyfGzzq Daveyvishnuaniyaz BRAKE ENGINEER Work Phone: Start: 18-30-8526JzgjtfjysriAaiuxloj Sarmini Start: 69-38-8108Vbofyicoblgiaytvcotrzhcyezm electrohydraulic lithotripsy of bezoar in stomachChoate Memorial Hospitald Nicolemini Comment on above:BellevueStart: 70-05-0452FF RIGHT UPPER QUADRANTGeneric External Data ProviderStart: 51-10-5408Edjffznki of Bilateral Fallopian Tubes, Via Natural or Artificial OpeningCNP CYNDI AICHHOLZ Start: 93-96-5246Wrvzyixad of Uterus, Via Natural or Artificial OpeningCNP CYNDI AICHHOLZHistory of tonsillectomyMujack hughston memorial hospitald Sarmini Resection of Bilateral Fallopian Tubes, Via Natural or Artificial OpeningMuhammad Sarmini Resection of Uterus, Via Natural or Artificial Opening Celeste Nicolemini Plan of Treatment DateCare ActivityDetailAuthorStart: 41-35-3759Khqwxrfae for malignant neoplasm of colonNOMS HealthcareStart: 87-41-3167Uizvsm Vaccines (1 of 2)Zoster Vaccines (1 of 2)[facility]Start: 04-23[facility]2025 End: 53-61-6582Zgzapdtx US mesenteric artery duplex completeVascular US mesenteric artery duplex complete Vascular Ultrasound Routine Median arcuate ligament syndrome Expected: 04/23/2025 (Approximate), Expires: 02/26/2027[facility] Service Area Work Phone: Comment on above:Expected: 04/23/2025 (Approximate), Expires: 02/26/2027Start: 04-23-2025 End: 60-63-9454Vvamtvq encounter kydqeqtjm81/16/2025 11:30 AM EST Office Visit [facility] [address] [place] [phone] [place] [address] [place] [address] [facility] Start: 04-23-2025 End: 07-19-1990Mqcnyrrmugpl / ancillary services cmbdujueas38/16/2025 10:00 AM EST Ancillary Procedure [facility] [address] [place] [id number]Start[facility] 03-18-2025 [facility]25 End: 15-94-5481Rjpiplv encounter edjtkfdqh01/08/2025 12:30 PM EDT Office Visit [facility] [address] [place] [phone] V[place] Cruz [place] MPH [address] [address] [facility] [place], [place] [id number] [facility]: 75-09-6006Zddahsapw for malignant neoplasm of breastMammogramNOSaint Joseph Hospital WestStart: 31-94-6813CDYXR-19 Vaccine ( season)COVID-19 Vaccine ( season)[facility]: 07-32-4463SVOYD-19 Vaccine ( season)COVID-19 Vaccine ( season)[facility]: 02-17-4522Rxyzmetbz vaccinationUnTrinity Health System: 32-84-0441Mqzlqslco vaccinationInfluenza Vaccine (#1) [facility]: 11-12-2024 End: 88-48-2134Mxukurd encounter afpldvpms64/07/2025 1:45 PM EDT Office Visit [facility] [address] 1[address] Floor [place], [place] Vee Cruz MD MPH [address] [place] [address] [facility]: 10-23-2024 End: 93-77-5202Yhjgcmp encounter acbvgbsze69/17/2025 10:15 AM EDT Office Visit [facility] [address] [place] [address] [place] [address] [place] [address] [facility] Start: 10-15-2024 End: 68-14-1892Ixshwfi encounter oxpncgnbf08/09/2025 11:15 AM EDT Office Visit [facility] [address] 1[address] [place] [address] Vee Cruz MD MPH [address] [place] [address] [facility]: 09-24-2024 End: 96-18-3388Tmhcdct encounter dwykvgwim06/19/2025 1:30 PM EDT Office Visit [facility] [address] [place] [address] Brissa Rain MD [address] [place] [address] [facility] 09-14-2024 End: 02-87-6795Aehpcjj encounter nobvktdpf59/09/2025 10:30 AM EDT Appointment [facility] [address] [place] [address] Bisi Pena MD [address] [facility] [address] [place] [address] [facility] 09-11-2024 End: 58-35-4126Uxlbmez encounter nuvoyhkop16/06/2025 9:45 AM EDT Office Visit [facility] [address] [place] [address] [place] [address] [place] [address] [facility]: 08-24-2024 End: 89-28-2338Bycakey encounter dlehbqtmg98/18/2025 11:30 AM EDT Appointment [facility] [address] [place] [address] [facility] 08-13-2024 End: 06-82-4097Kqpbnjw encounter gozduxits01/07/2025 1:15 PM EDT Office Visit [facility] [address] [place] [address] Brissa Rain MD [address] [place] [address] [facility] 08-06-2024 End: 07-59-1886Sjiieto encounter tuozmonuk65/31/2025 1:45 PM EDT Office Visit [facility] [address] 1st Floor [place], [place] Vee Cruz [place] MPH [address] [facility] [place] [address] [facility]: 07-02-2024 End: 78-59-2902Yfzllha encounter hewvptwsx18/24/2025 9:00 AM EST Office Visit [facility] [address] [place] [address] Cyndi Epperson NP [address] [place] [address] [facility] FMStart: 06-18-2024 End: 87-58-3027GZ pain managementFL pain management Imaging Routine Epigastric pain Median arcuate ligament syndrome (CMS-HCC) Expected: 06/18/2024, Expires: 06/18/2025[facility] Work Phone: Comment on above:Expected: 06/18/2024, Expires: 06/18/2025Start: 06-18-2024 End: 60-50-7437Mbpdlkglcyb BlockSympathetic Block Pain Management Routine Epigastric pain Median arcuate ligament syndrome (CMS-HCC) Expected: 06/18/2024, Expires: 06/18/2025[facility] Service Area Work Phone: Comment on above:Expected: 06/18/2024, Expires: 06/18/2025Start: 05-29-2024 End: 56-32-0448Micsoqi encounter rgnchgmea45/21/2025 10:30 AM EST Office Visit [facility] [address] [place], [place] [address] [place] [address] [place], [place] [address] [facility] Start: 04-30-2024 End: 27-14-8333Qqvgkqs encounter procedureNOMS CWM FMComment on above:Pain of upper abdomen (Primary Dx); Elevated antinuclear antibody (SERA) levelStart: 03-28-2024 End: 67-63-6192Waezwoo encounter yyzoycwte01/20/2024 8:40 AM EST Office Visit [facility] [address] [place] [address] Cyndi Epperson NP [address] [place] [address] [facility] FMStart: 29-29-1643Wiznulufy complement CH50 level [facility]: 68-88-5605MnijkjycmLakehealth [facility] CenterStart: 02-22-2024 End: 42-03-1768Joobeim encounter ecmjvypax92/16/2024 3:00 PM EDT Office Visit [facility] [address] [place] [address] Ramiroangela Cyndi, BRAKE ENGINEER [address] [place] [address] [facility] CW FMStart: 02-22-2024 End: 87-96-7525Pzjafdi [Enzymatic activity/volume] in Serum or PlasmaAmylase Lab Routine Pain of upper abdomen Expected: 02/22/2024 (Approximate), Expires: 02/21/2025 HealthcareComment on above:Expected: 02/22/2024 (Approximate), Expires: 02/21/2025Start: 02-22-2024 End: 34-35-8865Ohejlqckagyjkdkr O titerAntistreptolysin O titer Lab Routine Pain of upper abdomen Enlarged liver Expected: 02/22/2024 (Approximate), Expires: 02/21/2025[place] HealthcareComment on above:Expected: 02/22/2024 (Approximate), Expires: 02/21/2025Start: 02-22-2024 End: 02-21-2025 reactive protein [Mass/volume] in Serum or PlasmaC-reactive protein Lab Routine Pain of upper abdomen Enlarged liver Expected: 02/22/2024 (Approximate), Expires: 02/21/2025NONY HealthcareComment on above:Expected: 02/22/2024 (Approximate), Expires: 02/21/2025Start: 02-22-2024 End: 60-99-4113Azmpiuxiqqy sedimentation rateSedimentation rate, automated Lab Routine Pain of upper abdomen Enlarged liver Expected: 02/22/2024(Approximate), Expires: 02/21/2025[facility] Work Phone: Comment on above:Expected: 02/22/2024 (Approximate), Expires: 02/21/2025Start: 02-22-2024 End: 77-90-1568Qwytgy [Enzymatic activity/volume] in Serum or PlasmaLipase Lab Routine Pain of upper abdomen Expected: 02/22/2024 (Approximate), Expires: 02/21/2025[facility] HealthcareComment on above:Expected: 02/22/2024 (Approximate), Expires: 02/21/2025Start: 02-22-2024 End: 20-64-1960Uvdcpbk Ab [Titer] in Serum by ImmunofluorescenceANA Lab Routine Pain of upper abdomen Enlarged liver Expected: 02/22/2024 (Approximate), Expires: 02/21/2025[facility] HealthcareComment on above:Expected: 02/22/2024 (Approximate), Expires: 02/21/2025Start: 01-11-2024 End: 44-47-0242CM Breast - bilateral ScreeningBilateral screening mammogram Imaging Routine Encounter for screening mammogram for malignant neoplasm of breast Expected: 01/11/2024 (Approximate), Expires: 03/12/2025[facility] Healthcare Work Phone: Comment on above:Expected: 01/11/2024 (Approximate), Expires: 03/12/2025Start: 01-10-2024 End: 86-94-6134Fgapeyu encounter /03/2024 1:20 PM EDT Office Visit [facility] [address] [place] [address] Cyndi Epperson NP [address] [place] [address] [facility] FMStart: 01-10-2024 End: 08-24-0372Gicmwfq encounter /03/2024 8:45 AM EDT Procedure Visit [facility] Samuel Mcdermott DO [address] [place] [address] [facility] EXT DEPStart: 02-73-6279ECXPV-19 Vaccine ()COVID-19 Vaccine ( season)[facility]: 04-64-5930Guwutynnz vaccinationInfluenza Vaccine (#1)[facility]: 18-47-5060WXpB/Tdap/Td Vaccines (2 - Td or Tdap)DTaP/Tdap/Td Vaccines (2 - Td or Tdap)[facility]: 99-75-6611Grkgymwhk for malignant neoplasm of breastMammogram [facility] HealthcareStart: 27-21-3156Kxlqkvakh for malignant neoplasm of cervix HPV/CotestNOMS HealthcareStart: 46-20-3092Htrjremuv for malignant neoplasm of cervixNOMS HealthcareStart: 56-88-5838Kfcgsdrzp A Vaccines (1 of 2 - Risk 2-dose series)Hepatitis A Vaccines (1 of 2 - Risk 2-dose series)[facility]: 06-79-3850Sapnipvvi B Vaccines (1 of 3 - 19+ 3-dose series) Hepatitis B Vaccines (1 of 3 - 19+ 3-dose series)[facility]: 11-72-1699Xuffxgtag C screeningHepatitis C ScreeningUnTrinity Health System: 63-27-1220YYD Vaccines (1 of 1 - Standard series) MMR Vaccines (1 of 1 - Standard series)[facility]: 48-29-0417FLE screeningHIV ScreeningTrumbull Regional Medical Center: 27-79-2203Kczcg panelLipid PanelUnTrinity Health System: 94-66-3336Gylrgtqbh for malignant neoplasm of colonNOMS HealthcareStart: 83-76-5234Kzzjkn Adult PhysicalYearly Adult PhysicalUnMagruder Memorial Hospital End: 43-19-9021HP ORDER ONLY - Antibody IdentificationUnMagruder Memorial Hospital Work Phone: Comment on above:Once (Lab) for 1 Occurrences starting 01/29/2025 until 01/29/2025BC panel - Blood by Automated countCBC Lab Routine Morning draw (Lab) until discontinued starting 01/31/2025UnMagruder Memorial Hospital Work Phone: Comment on above:Morning draw (Lab) until discontinued starting 01/31/2025omplement C3 [Mass/volume] in Serum or PlasmaWadsworth-Rittman HospitalComplement C4 [Mass/volume] in Serum or PlasmaWadsworth-Rittman HospitalComprehensive metabolic 2000 panel - Serum or Plasma [facility] End: 32-89-2274Mbxrlhtoib Pulse oximetry, In Phase 1Continuous Pulse oximetry, In Phase 1 Respiratory Care Routine Continuous until discontinued starting 01/29/2025[facility] Service Area Work Phone: Comment on above:Continuous until discontinued starting 01/29/2025Electrocardiogram, 12-lead PRN ACS symptomsElectrocardiogram, 12-lead PRN ACS symptoms ECG Routine As needed until discontinued starting 01/29/2025[facility] Work Phone: Comment on above:As needed until discontinued starting 01/29/2025 End: 99-90-0317Qttyfclsr spirometry InstructIncentive spirometry Instruct Respiratory Care Routine Once for 1 Occurrences starting 01/29/2025 until 01/29/2025[facility] Area Work Phone: comment on above:Once for 1 Occurrences starting 01/29/2025 until 01/29/2025Magnesium [Mass/volume] in Serum or PlasmaMagnesium Lab Routine Morning draw (Lab) until discontinued starting 01/30/2025, 1 [facility] Work Phone: Comment on above:Morning draw (Lab) until discontinued starting 01/30/2025, 1 completedMG Breast - bilateral DiagnosticWadsworth-Rittman HospitalMitochondria M2 IgG Ab [Units/volume] in SerumWadsworth-Rittman Hospital End: 34-51-0981Ngaaeqwi SedationModerate Sedation Procedures Routine Once for 1 Occurrences starting 09/14/2024 until 09/14/2024[facility] Work Phone: Comment on above:Once for 1 Occurrences starting 09/14/2024 until 09/14/2024 End: 34-73-5688Hrhy Review-ImmunohematologyK[facility] Health [facility] Work Phone: Comment on above:Once (Lab) for 1 Occurrences starting 01/29/2025 until 01/29/2025 End: 81-46-6485Osozqtj RBC: 2 UnitsPrepare RBC: 2 Units Blood Bank Routine Once for 1 Occurrences starting 01/29/2025 until 01/29/2025[facility] Service Area Work Phone: Comment on above:Once for 1 Occurrences starting 01/29/2025 until 01/29/2025 End: 81-53-3568Uvbop oximetry, continuousPulse oximetry, continuous Respiratory Care Routine Continuous until discontinued starting 09/14/2024[facility] Work Phone: Comment on above:Continuous until discontinued starting 09/14/2024Renal function 2000 panel - Serum or PlasmaRenal function panel Lab Routine Morning draw (Lab) until discontinued starting 01/31/2025 [facility] Work Phone: Comment on above:Morning draw (Lab) until discontinued starting 01/31/2025RNA polymerase III IgG Ab [Units/volume] in Serum or Plasma by ImmunoassayBellevue Hospitalurgical pathology study [facility] Work Phone: Comment on above:Release Upon Ordering for 1 Occurrences starting 09/14/2024, 1 completedSurgical pathology studyE.J. [facility] Area Work Phone: Comment on above:Release Upon Ordering for 1 Occurrences starting 01/29/2025, 1 completedUnlisted laparoscopic px abd pertoneum & omentumRELEASE, LIGAMENT, MEDIAN ARCUATE, LAPAROSCOPIC Median arcuate ligament syndromeVirtual [facility] Immunizations Immunization DateImmunizationNotesCare QdviubfqLgztfomu70-97-3898Qsotmc Purple Cap SARS-CoV-2 VaccinationLisa Aicisrealz BRAKE ENGINEER Work Phone: [phone]-ClcvdOhio State [facility] Hospital [facility] Wfdnhw87-91-1204 Pfizer Purple Cap SARS-CoV-2 VaccinationLisa Aichholz BRAKE ENGINEER Work Phone: [phone]-OevhaOhio State East Hospital [facility] Dtqbzz04-68-1116 influenza virus vaccine, unspecified formulationMuhamrodriguez Riveramini 969-0243Lrwmfe-QrwkcOhio State [facility] Hospital [facility] Knidox15-30-3838 influenza, seasonal, injectableLisa Epperson BRAKE ENGINEER Work Phone: Cox NorthTyopwuokby95-13-9679zmufhxp toxoid, reduced diphtheria toxoid, and acellular pertussis vaccine, adsorbedLisa Zeenat BRAKE ENGINEER Work Phone: [phone]-YtgvlOhio State East Hospital [facility] Health Payers DatePayer CategoryPayerPolicy [id number]-vrn [id number] Health Insurance [id number] HEALTHSCOPE BENEFITS [id number] 2023-Present [phone] [address] [address] [place] [address].2.840.368896.1.13.693.2.7.3.664374.24421-61-0494 Managed Care (Private)1.2.840.311757.1.13.647.2.7.9.661882.744359.81804-57-8131 [id number] 2..840.1.430884.3.579.2.97667-18-5584Pbgejaw1768513 2.840.1.003528.3.579.2.43900-67-9349Gmjvtxq6565322 2.16840.1.236115.3.579.2.98454-46-2194Reyaizp3468303 2.16.840.1.755834.3.579.2.03042-05-9182Ytmqtfs8380572 2.16.840.1.525770.3.579.2.45593-33-6039Lohkiyn6114539 2.16.840.1.365351.3.579.2.22774-78-4500Wqkzrug3106380 2..840.1.532705.3.579.2.85601-23-3779Pjwncnm5617346 2.840.1.544579.3.579.2.09850-06-6715Nhumrgo5225549 2.16840.1.697813.3.579.2.01736-09-4587Ogyvuyi7367709 2.16840.1.444849.3.579.2.26991-81-4106Qreucgq8522421 2.840.1.949710.3.579.2.55300-76-9992Kfrcohv6872257 2.840.1.856616.3.579.2.35279-86-3509Nrktcgm9057098 2.840.1.426163.3.579.2.54986-17-5470Qhvuwby9989007 2.840.1.974707.3.579.2.55680-66-5741Gdcdpyj5123213 2.840.1.175737.3.579.2.16287-34-1221Utyrzie07926242 2.840.1.184386.3.579.2.14363-29-0676Ietvudp87263743 2.840.1.719026.3.579.2.20833-42-6649Bonyesj72204302 2.840.1.614944.3.579.2.78210-24-2870Fxazbwp97754617 2.840.1.865203.3.579.2.69833-29-6824Qcovicd98831057 2.840.1.541145.3.579.2.46892-32-4312Flofhjc24707692 2.840.1.902299.3.579.2.62349-50-3717Nlsrlag18623826 2.840.1.351271.3.579.2.92589-19-3907Rntkvfa4802633 2..840.1.194439.3.579.2.018139-85-6718Mrlmwxq8115324 2.840.1.527488.3.579.2.520581-96-6690Motnbcc2718407 2.840.1.116940.3.579.2.867325-95-6091Yzgosdr2160179 2.0.1.290980.3.579.2.233047-82-8584Ttdhuyq9664211 2.0.1.817486.3.579.2.870174-45-0566Gvtteio9669835 2.0.1.282305.3.579.2.110748-62-4390Phqccra371943946 2..1.482668.3.579.2.286346-86-0748Oixzlsa976337447 2.840.1.561302.3.579.2.275168-94-0481Tghnjpk15528119 2.0.1.873744.3.579.2.385173-39-7745Xqjmrus52209270 2.840.1.753167.3.579.2.125380-61-8247Mdxhbqj45691482 2.840.1.526473.3.579.2.31751-45-7935Vlpiikc16527400 2.840.1.586808.3.579.2.35767-67-2779Msatetq87435556 2.840.1.298249.3.579.2.81692-24-6031Egqlzjn08483195 2.840.1.074030.3.579.2.47112-74-7996Cqywgia63534167 2.840.1.754718.3.579.2.91320-31-6011Ncimskr41929258 2.840.1.586919.3.579.2.66635-68-9981Fdconhh10637799 2.0.1.117180.3.579.2.34400-34-3907Jynwihw092599105 2.0.1.568844.3.579.2.475942-34-4199Sifpvln958197896 2.0.1.255658.3.579.2.498548-63-9655Czybnth625834646 2..1.112669.3.579.2.770853-35-0312Mufzxjb298357618 2..1.033290.3.579.2.692327-74-2502Pqlckrr019049033 2..1.326642.3.579.2.645738-07-8759Alnpbrr738264800 2..1.451609.3.579.2.176433-38-9403Tqrqadq320596322 2..1.726483.3.579.2.994071-11-8873Rugwxof505155197 2..1.155125.3.579.2.009389-92-2319Bvsoxge758670163 2.0.1.492465.3.579.2.391247-75-6791Kjpyfkx589391965 2.840.1.142021.3.579.2.055031-75-0782Obqtmae856038092 2.840.1.842399.3.579.2.545128-39-4247Fuisymo792012196 2.0.1.607614.3.579.2.955231-33-8568Kooimaa801253195 2.16.840.1.205334.3.579.2.774772-69-5545Vcrdbsy8879227118-84-6795Qbknaut O82632071IhizbkkXAG241D08224 f7902hb6-xsv6-6k17-ag73-kg2m2eb47391Aszbkik88114569 2.0.1.840808.3.579.2.351Pghnnfo44401753 2.0.1.550393.3.579.2.531 Atcsjes12989192 2.0.1.020445.3.579.2.531 Social History DateTypeDetailFacilityTobacco smoking statusSouthwest General Health Center Start: 02-22-2024 End: 65-28-4951Grv [facility]: 13-31-9049Uum Assigned At Centervilletart: 01-19-2024 End: 79-27-4294Hecyjes smoking statusNever smoked tobacco (finding)[facility] HealthStart: 04-03-2022 End: 58-09-4263Whqdari smoking statusNeverOhio State East Hospital Digestive HealthStart: 12-22-2023 End: 14-77-8220Vuusvve smoking status NHISEx-smokerNOMS Healthcare End: 39-69-9084Ycgcyfx of tobacco useCurrent smokerN[facility]S Healthcare End: 34-47-6487Epoqtzl of tobacco useCigarette SmokerNOMS HealthcareStart: 12-22-2023 End: 23-91-0332Iumqbdl use and exposureSmokeless tobacco non-userNOMS Healthcare Start: 01-11-2024 End: 29-88-5600Gyelqqyyo beverage intakeEx-drinker (finding)[facility] Start: 02-22-2024 End: 73-52-1316Htvglkh of Social functionNOMS HealthcareStart: 81-27-1185Rppyien Commentcaffine: 1 cup of coffee dailyNOMS HealthcareStart: 44-69-4100Oycwki identityIdentifies as female gender (finding)[facility] HealthcareStart: 12-22-2023 Sexual orientationHeterosexual (finding)[facility] HealthcareTobacco smoking status NHISUnknown if ever smokedNOMS HealthcareStart: 52-99-7413IleGuypvaq sex unknown (finding)[facility] Hospitaltart: 63-83-0699Uny assigned at birthNot on fileUnMagruder Memorial Hospital Work Phone: Start: 05-29-2024 End: 05-57-4856Wfxeesljd beverage intakeLifetime non-drinker (finding)[facility] Work Phone: How often to you have a drink containing alcohol?Never [facility] Work Phone: Start: 06-08-2024 End: 03-13-2009Zbcqspcd to SARS-CoV-2 (event)Not sureUnMagruder Memorial HospitalStart: 08-20-2009 End: 47-46-1431XdhZmpfoq (finding)[facility] CenterNEGATED: Highlighted rowStart: NINFHistory of tobacco usePassive smokerUnMagruder Memorial Hospital Work Phone: Functional Status NzvaBlqrdaatnkZdlhvqYrwjgkti56-62-4129Jwswpnk Health Questionnaire 2 item (PHQ- 2) [Reported][facility] Work Phone: [phone] - suicide severity rating scale screener - recent [C-SSRS][facility] Work Phone: [phone] riajjk803/80 02/26/2025 3:56 PM JANEST Nicky Blackburn MA 140UnMagruder Memorial Hospital Work Phone: [phone] signs76 02/26/2025 3:56 PM EDT Nicky Blackburn, MTUnMagruder Memorial Hospital Work Phone: [phone] Health Questionnaire 2 item (PHQ-2) [Reported][facility] Work Phone: [phone] uquhex377/84 02/13/2025 12:22 PM EDT Barbi Koenig, [facility] 133/84UnMagruder Memorial Hospital10-08-2025Vital signs91 02/13/2025 12:22 PM EDT Barbi Koenig, [facility]ILLUnMagruder Memorial Hospital Work Phone: [phone] statusK[facility]tering Health [facility] Campus Work Phone: [phone] Memorial Hospital Work Phone: [phone] score [AUDIT-C]0 01/29/2025 4:40 PM EDT Nicky Cueto, UnMagruder Memorial Hospital Work Phone: [phone] Health Questionnaire 2 item (PHQ-2) [Reported][facility] Work Phone: [phone] Memorial Hospital09-23-2025 Functional status1 01/29/2025 9:46 AM EDT Radha Pederson MD 1UnMagruder Memorial Hospital Work Phone: [phone]llcurcqMagruder Memorial Hospital Work Phone: [phone] - suicide severity rating scale screener - recent [C-SSRS][facility] Work Phone: [phone] [facility] Work Phone: [phone] Memorial Hospital Work Phone: [phone] statusKettering Health [facility] Campus09-10-2025UnMagr[facility] Memorial Hospital Work Phone: [phone] Health Questionnaire 2 item (PHQ-2) [Reported][facility] Work Phone: [phone]ebxycsrm statusUnMagruder Memorial Hospital06-17-2025UnMagruder Memorial Hospital Work Phone: [phone] Memorial Hospital Work Phone: [phone]iil statusKettering Health [facility] Campus Work Phone: [phone] - suicide severity rating scale screener - recent [C-SSRS][facility] Work Phone: [phone] statusKettering Health [facility] Campus04-07-2025UnMagruder Memorial Hospital Work Phone: [phone] Health Questionnaire 2 item (PHQ-2) [Reported][facility] Work Phone: [phone] Memorial Hospital Work Phone: [phone] - suicide severity rating scale screener - recent [C-SSRS][facility] Work Phone: [phone] [facility]11-01-2024Functional StatusN/AFisher-[facility] Digestive Dczkeh65-92-1519Uqunaxuert StatusN/[facility] Health 76-05-6884Rcnrgieavz StatusN/AFisher - [facility] CenterUnMagruder Memorial HospitalUnMagruder Memorial HospitalUn[facility] Mental Status Qunj[id number] function findingPositive 01/29/2025 3:05 PM EDT Briseida Harry, DAVID [facility] Work Phone: [facility] Work Phone: Clinical Notes 12-19-2023 to 02-26-2025 Note Date & [id number] History of Present illness Narrative* Hossein Potter MD - 02/26/2025 3:15 PM EDT Patient returns for follow-up. She no longer has a respiratory related abdominal pain. This has resolved since her operation. She reports dumping symptoms, diarrhea after eating. This is typically self-limited after this kind of operation. It may take up to 2 to 3 months to fully resolve. She also reports a line of pain extending from her supraumbilical port incision going over to the ninth rib consistent with 9 rib intercostal neuritis. It is quite bothersome and wakes her up at night. All of her incisions have healed well there is no hernias. I am going to order Lidoderm patches for her. This should help her intercostal discomfort. I am going to set her up for a mesenteric duplex in 2 months. She may take pzja-trq-rlwbtsp Imodium as needed for the dumping but this should be self-limited. She is unable to withstand the discomfort for work currently and will past the paperwork needed to be off work. documented in this [facility] Work Phone: [phone]) 291-473310-08-2025 History of Present illness Narrative* Vee Cruz MD MPH - 02/13/2025 12:30 PM EDT Images from the original note were not included. GENERAL SURGERY CLINIC POST-OP FOLLOW UP NOTE Clinic Date: 02/13/25 Nikki Kelly Artemio, 44 y.o. Date of Surgery: 01/29/25 Surgical Procedure: MALS Extra Procedures: none COMPLICATIONS DURING ADMISSION: None Surgeon Attending: Dr. Vee Cruz Eating small amounts. Notes better than before. Still can't do tacos or spaghetti. These foods giveher nausea. Spasms and builds up in chest. By better, not vomiting with eating. Only 1 emesis with surgery due to meds.only using tylenol for pain and the muscle relaxes and gets spasms. No nausea and has not stopped the omeprazole. On elavil for nerve sensitivity by Dr. Shelley. Moving bowels fine. Not suing zofran. Last Impression Visit Note 08/06/24: Nikki Martins is a 43 y.o. female presenting for evaluation of MALS. She starting having epigastric pain in November 2023, worse after eating. Since then, she has had an extensive workup, including an EGD and colonoscopy, with findings of a small hiatal hernia. Shehad a RUQ US that did not demonstrate any gallstones or cholecystitis, and had a HIDA scan that wasnormal. She had a GES done also which was normal. Her mesenteric duplex showed peak celiac axis velocities up to 280 cm/s in expiration with normalization with inspiration. She saw Dr. Potter in May 2024, and more recently underwent a celiac plexus block on 07/12/24. She had a great response to that for 8 hours after, during which she was pain free and ate a meal and [employer]. The pain has returned since and is constant, worse when she eats. She has had laparoscopic evaluation for endometriosis in the past. She describes pain as cramping and spasms to both sides. She notes improvement of the pain with omeprazole. She has had 10-20 lb weight loss. With further questioning, her symptoms are as follows; Was camping in [place] and thought had flu for 3 days. Lots of vomiting but no diarrhea or fever. Then had bloating, really loose stools and then chest started burning. Trinity the prilosec helped but did not completely relive. Threw up all she ate. Lost 30 lbs over 4-5 months. Can eat chicken and rice. Always has pain but sometimes spasms so bad feels like ribs will squish her. Kept a journal looking for food triggers. Can eat 2 small meals and then does a coupld of snacks as can't eat much. Pain at bottom o sternum and never goes away. Can only get a couple of hours of sleep. Increased with actibviy. Uses tylenol and ibuprofen and nothing works. Notes she was mofing bowels but was a lot of filiberto. Then started metamucil and goes regularly. Notes does not eat much. Doing mostly nutrition drinks. She notes theinjection felt like night and day. Even felt more energetic. Started amytriptilline in March and that helped the dysphagia. She is on 50 at bedtime. She could never eat fast. Feels like food backs up. She notes multiple family members had gb removed. Dysphagia was so bad and could not take pills. It is interesting that omeprazole and amytriptilline helped and myabe there is more esophageal/ugi pathology. Will do an egd and esophagram/ugi, follow up after tests to determine next steps. She mayalso have some imbalance in microbiome. PLAN: Try a probiotic daily or a yogurt daily UGI/Esophagram with views of the stomach-Schedule this in fluorosopy in radiology at your convenience EGD -For this you will need a airport driver. And also with endoflip Follow up after the studies. Esophagram 08/24/24: Show images for FL upper GI w KUB FINDINGS: [employer] images: Unremarkable bowel gas pattern. Esophagus: Swallowing mechanism: Unremarkable, with free flow through the esophagus. Esophageal lumen: Unremarkable without significant dilatation. The esophageal mucosa: Unremarkable without obvious ulceration. GE junction: Unremarkable without hernia. There is minimal but not considered significant gastroesophageal reflux with the water siphon challenge. UGI: Stomach: Unremarkable without mass or constricting lesions, or mucosal irregularity. Duodenum: Unremarkable. Visualized proximal small bowel: Unremarkable. IMPRESSION: 1. Unremarkable exam. EGD 09/14/24: Impression The esophagus appeared normal. The stomach appeared normal. Performed random biopsy to rule out H. pylori. The duodenum appeared normal. Performed random biopsy to rule out celiac disease. Endoflip impedance planimetry showed a normal EGJ opening with EGJ-DI at 6.1 mm2/mmHg and maximum EGJ diameter at 17.8 mm. Contractility pattern was normal contractile response (NCR). Findings The Endoflip impedance planimetry system was utilized to assess distensibility and secondary peristalsis. Results Below: Placement time:1015 Removal time: Lower esophageal sphincter measurement (cm):40 Balloon Volume (mL):50 Diameter (mm): 16.1 Distensibility (mm2/mmHg): 7.1 Pressure (mm/Hg): 28.28 Balloon Volume (mL):60 Diameter (mm): 17.8 Distensibility (mm2/mmHg): 6.1 Pressure (mm/Hg): 41.0 Balloon Volume (mL):70 Diameter (mm): 16.3 Distensibility (mm2/mmHg): 4.4 Pressure (mm/Hg): 47.7 Balloon Volume (mL): 70 Diameter (mm): Distensibility (mm2/mmHg): Pressure (mm/Hg): The esophagus appeared normal. The stomach appeared normal. Performed random biopsy using biopsy forceps to rule out H. pylori. The duodenum appeared normal. Performed random biopsy using biopsy forceps to rule out celiac disease. Recommendation Await pathology results Follow-up with Dr Cruz and Dr Loza regarding MALS FINAL DIAGNOSIS A. Duodenum, Second Part, Biopsy: -- Duodenal mucosa with focal gastric mucin-cell metaplasia. No intraepithelial lymphocytosis. Normal villous architecture. B. Stomach, Antrum, Biopsy: -- Normal antral and oxyntic mucosa. No Helicobacter organisms are identified. Presenting Today For: Time Since Surgery: 2 FUV. eeks concerns: pain after eating. Self Reports: Abdominal Pain: Yes Constipation: No Decreased Urine Output: No Diarrhea: No Bloating / Hiccups: Yes- bloating Nausea/Vomiting: No Back Pain: No Calf/Thigh pain or swelling: No Cough / Wheezing: No Fever/Chills: No Increased Heart Rate: No Shortness of Breath: No GERD - Health Related Quality of Life Questionnaire (GERD- HRQL) On PPI How bad is the heartburn? 0 = No symptoms Heartburn when lying down? 0 = No symptoms Heartburn when standing up? 0 = No symptoms Heartburn after meals? 0 = No symptoms Does heartburn change your diet? 0 = No symptoms Does heartburn wake you from sleep? 0 = No symptoms Do you have difficulty swallowing? 0 = No symptoms Do you have pain with swallowing? 0 = No symptoms If you take medication, does this affect your daily life? 0 = No symptoms How bad is the regurgitation? 0 = No symptoms Regurgitation when lying down? 0 = No symptoms Regurgitation when standing up? 0 = No symptoms Regurgitation after meals? 0 = No symptoms Does regurgitation change your diet? 0 = No symptoms Does regurgitation wake you from sleep? 0 = No symptoms How satisfied are you with your present condition? Satisfied Total score (calculated by summing the individual scores of questions 1-15): 0 Greatest possible score 75 (worst symptoms). Lowest possible score 0 (no symptoms). Heartburn score (calculated by summing the individual scores of questions 1-6): 0 Worst heartburn symptoms: 30. No heartburn symptoms: 0. Score less than or equal to 12 with each individual question not exceeding 2 indicate heartburn elimination. Regurgitation score (calculated by summing the individual scores of questions 10-15): 0 Worst regurgitation symptoms: 30. No regurgitation symptoms: 0. Score less than or equal to 12 with each individual question not exceeding 2 indicate regurgitationelimination. Current Diet: mostly regular Current Medications: Current Medications[1] Visit Vitals Wt Readings from Last 1 Encounters: 02/13/25 63 kg (139 lb) Body mass index is 21.77 kg/m . REVIEW OF SYSTEMS: CONSTITUTIONAL: Patient denies fevers, chills, sweats and weight changes. EYES: Patient denies any visual symptoms. EARS, NOSE, AND THROAT: No difficulties with hearing. No symptoms of rhinitis or sore throat. CARDIOVASCULAR: Patient denies chest pains, palpitations, orthopnea and paroxysmal nocturnal dyspnea. RESPIRATORY: No dyspnea on exertion, no wheezing or cough. GI: No nausea, vomiting, diarrhea, constipation, abdominal pain, hematochezia or melena. : No urinary hesitancy or dribbling. No nocturia or urinary frequency. No abnormal urethral discharge. MUSCULOSKELETAL: No myalgias or arthralgias. NEUROLOGIC: No chronic headaches, no seizures. Patient denies numbness, tingling or weakness. PSYCHIATRIC: Patient denies problems with mood disturbance. No problems with anxiety. ENDOCRINE: No excessive urination or excessive thirst. DERMATOLOGIC: Patient denies any rashes or skin changes. PHYSICAL EXAM: PHYSICAL EXAMINATION: GENERAL: No apparent distress. Pt is alert and oriented x3. VITAL SIGNS: HR, BP, Temp; Normal HEENT: Head is normocephalic and atraumatic. Extraocular muscles are intact. Pupils are equal, round, and reactive to light and accommodation. Nares appeared normal. Mouth is well hydrated and without lesions. Mucous membranes are moist. Posterior pharynx clear of any exudate or lesions. NECK: Supple. No carotid bruits. No lymphadenopathy or thyromegaly. LUNGS: Clear to auscultation. HEART: Regular rate and rhythm without murmur. ABDOMEN: Soft, appropriately mildly tender to palpation, and nondistended. Positive bowel sounds. No hepatosplenomegaly was noted. Incisions CDI. EXTREMITIES: Without any cyanosis, clubbing, rash, lesions or edema. NEUROLOGIC: Cranial nerves II through XII are grossly intact. PSYCHIATRIC: Flat affect, but denies suicidal or homicidal ideations. SKIN: No ulceration or induration present. IMPRESSION: weeks pos laparoscopic mals release. Overall doing well. She and partner noted the nerve block was better than the surgery so far. She ways she is care home there so far with the surgery. Never feels hugry. But notes no emesis before surgery. She overall has improved but still awaiting time to see if fully recovers going back to normal. PLAN: Continue the omeprazole for now Try zofran to reduce nausea prior to tacos and spaghetti by taking zofran before meals See rheumatolgy and follow up. Reassess the need for elavil with the prescribing doc. Continue the tylenol as needed. Try reducing the robaxin to once/day at bedtime Follow up with Dr. Potter Eat more frequent smaller meals See me as needed. See me if nausea restricts. Keep your nutrition up 20 minutes spent with patient on [id number] interaction, history/documentation, education, and coordination of care. Dr. Vee Cruz M.D., MPH Director of Bariatric & Minimally Invasive Surgery [place] [address] T: [phone] F: [phone] Ingrid Pretty, DAVID Teaching Manager Nurse Vegetable Worker, [employer] Patient Nursing Contact T: [phone] F: [phone] Elisha Arreola LPN Clinic Nurse T: [phone] F: [phone] [1] Current Outpatient Medications Medication Sig Dispense Refill amitriptyline (Elavil) 50 mg tablet Take 1 tablet (50 mg) by mouth once daily at bedtime. cholecalciferol (Vitamin D-3) 25 MCG (1000 UT) tablet Take 1 tablet (1,000 Units) by mouth once daily. cyanocobalamin (Vitamin B-12) 1,000 mcg tablet Take 1 tablet (1,000 mcg) by mouth once daily. dicyclomine (Bentyl) 10 mg capsule Take 1 capsule (10 mg) by mouth every 6 hours if needed. docusate sodium (Colace) 100 mg capsule Take 1 capsule (100 mg) by mouth 2 times a day. To prevent constipation while taking narcotics 20 capsule 0 famotidine (Pepcid) 20 mg tablet Take 1 tablet (20 mg) by mouth once daily. methocarbamol (Robaxin) 500 mg tablet Take 1 tablet (500 mg) by mouth every 6 hours if needed for muscle spasms. 20 tablet 1 omeprazole (PriLOSEC) [address] capsule Take 1 capsule (40 mg) by mouth once daily. ondansetron ODT (Zofran-ODT) 4 mg disintegrating tablet Dissolve 1 tablet (4 mg) in the mouth every8 hours if needed. oxyCODONE (Roxicodone) 5 mg immediate release tablet Take 1 tablet (5 mg) by mouth every 6 hours ifneeded for severe pain (7 - 10). (Patient not taking: Reported on 02/13/2025) 20 tablet 0 No current facility-administered medications for this visit. documented in this [facility] Work Phone: [phone]) 819-756310-08-2025 Instructions* Patient Instructions* Vee Cruz MD MPH - 02/13/2025 12:30 PM EDT PLAN: Continue the omeprazole for now Try zofran to reduce nausea prior to tacos and spaghetti by taking zofran before meals See rheumatolgy and follow up. Reassess the need for elavil with the prescribing doc. Continue the tylenol as needed. Try reducing the robaxin to once/day at bedtime Follow up with Dr. Potter Eat more frequent smaller meals See me as needed. Keep your nutrition up Dr. Vee Cruz M.D., MPH Director of Bariatric & Minimally Invasive Surgery [place] [address] T: [phone] F: [phone] Ingrid Pretty, RN Teaching Manager Nurse Vegetable Worker, [employer] Patient Nursing Contact T: [phone] F: [phone] Elisha Arreola LPN Clinic Nurse T: [phone] F: [phone] [facility] Phone: 1(208) 209-388109-24-2025 Plan of care note* Care Plan - Mariaa Miles RN - 01/30/2025 12:51 PM EDT Problem: Pain - Adult Goal: Verbalizes/displays adequate comfort level or baseline comfort level Outcome: Progressing Problem: Safety - Adult Goal: Free from fall injury Outcome: Progressing Problem: Discharge Planning Goal: Discharge to home or other facility with appropriate resources Outcome: Progressing Problem: Chronic Conditions and Co-morbidities Goal: Patient's chronic conditions and co-morbidity symptoms are monitored and maintained or improved Outcome: Progressing Problem: Nutrition Goal: Nutrient intake appropriate for maintaining nutritional needs Outcome: Progressing [facility] Work Phone: 1(288) 925-204009-24-2025 Miscellaneous Notes* Care Plan - Mariaa Miles RN - 01/30/2025 12:51 PM EDT Problem: Pain - Adult Goal: Verbalizes/displays adequate comfort level or baseline comfort level Outcome: Progressing Problem: Safety - Adult Goal: Free from fall injury Outcome: Progressing Problem: Discharge Planning Goal: Discharge to home or other facility with appropriate resources Outcome: Progressing Problem: Chronic Conditions and Co-morbidities Goal: Patient's chronic conditions and co-morbidity symptoms are monitored and maintained or improved Outcome: Progressing Problem: Nutrition Goal: Nutrient intake appropriate for maintaining nutritional needs Outcome: Progressing * Hospital Course - Janae Donnelly APRN-KP - 01/30/2025 8:54 AM EDT 44 year old female presented for elective laparoscopic MALS release on 01/[address] Potter and Nancy. Procedure was tolerated well. She was admitted post- operatively and progressed appropriately. Upon discharge, pain was moderately controlled on PRN regimen, tolerating regular diet, ambulating, and voiding without difficulty. She was discharged home with instructions regarding outpatient surgical follow up. * Significant Event - Samson Steele MD - 01/29/2025 3:05 PM EDT S: Patient seen at bedside s/p laparoscopic median arcuate ligament release for post-operative evaluation. Denies f/c, n/v, SOB, CP. Pain is appropriately controlled on current pain regimen O: BP 142/79 Pulse 59 Temp 36 C (96.8 F) Resp 14 Ht 1.702 m (5' 7 ) Wt 63.2 kg (139 lb 5.3 oz) SpO2 96% BMI 21.82 kg/m - General: laying in bed comfortably, NAD - CV: regular rate and rhythm - Pulm: normal respiratory effort on RA - Abd: tender to palpation on right abdomen, mildly distended, incisional tenderness present; incisions well approximated with dermabond - : No rene in place Drains: None Drips: None A/P: Patient is doing well post-operatively. No changes in management at this time. 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] Procedures RELEASE, LIGAMENT, MEDIAN ARCUATE, LAPAROSCOPIC 06840 - UT UNLISTED LAPAROSCOPY PX ABD PERTONEUM & OMENTUM RELEASE, LIGAMENT, MEDIAN ARCUATE, LAPAROSCOPIC 67866 - UT UNLISTED LAPAROSCOPY PX ABD PERTONEUM & OMENTUM Surgeons Panel 1: * Hossein Potter - Primary Panel 2: * Vee Cruz - Primary Resident/Fellow/Other Teaching Manager: Surgeons and Role: Panel 2: * Radha Pederson MD - Resident - Assisting * Sunitha Thomas MD - Resident - Assisting * Ingrid Lackey MD - Fellow Staff: Basting Cleaner: Katy Cano Person: [facility] Anesthesia Staff: Anesthesiologist: Nasima Valladares MD C-AA: ELISA Lambert Procedure Summary Anesthesia: Anesthesia type not filed in the log. ASA: ASA status not filed in the log. Estimated Blood Loss: 5mL Intra-op Medications: Administrations occurring from 0700 to 1100 on 01/29/25: Medication Name Total Dose sodium chloride 0.9 % irrigation solution 1,000 mL BUPivacaine HCl (Marcaine) 0.25 % (2.5 mg/mL) injection 50 mL bupivacaine PF 0.25 % (Marcaine) 0.25 % (2.5 mg/mL) 20 mL, lidocaine-epinephrine (Xylocaine W/EPI) 2 %-1:100,000 20 mL, triamcinolone acetonide (Kenalog-40) 40 mg/mL 1 mL syringe 6 mL acetaminophen (Ofirmev) injection 1,000 mg ceFAZolin (Ancef) 1 g 2 g dexAMETHasone (Decadron) 10 mg/mL 8 mg dexmedeTOMIDine (Precedex) bolus from bag 30 mcg esmolol (Brevibloc) injection 100 mg fentaNYL (Sublimaze) injection 50 mcg/mL 100 mcg ketamine injection 50 mg/ 5 mL (10 mg/mL) 30 mg LR bolus Cannot be calculated LR bolus Cannot be calculated lidocaine (cardiac) injection 2% prefilled syringe 50 mg midazolam PF (Versed) injection 1 mg/mL 2 mg nitroglycerin 1 mg in 10 mL D5W IV bolus 100 mcg propofol (Diprivan) injection 10 mg/mL 200 mg rocuronium 10 mg/mL 100 mg NaCl 0.9 % bolus Cannot be calculated Anesthesia Record Intraprocedure I/O Totals Intake Dexmedetomidine 0.00 mL The total shown is the total volume documented since Anesthesia Start was filed. Total Intake 0 mL Output Urine 75 mL Total Output 75 mL Net Net Volume -75 mL Specimen: ID Type Source Tests Collected by Time 1 : MEDIAN ARCUATE LIGAMENT Tissue LIGAMENT SURGICAL PATHOLOGY EXAM Hossein Potter MD 01/29/2025 0905 Drains and/or Catheters: Urethral Catheter Non-latex 16 Fr. (Active) Tourniquet Times: Implants: Findings: Median arcuate ligament overlying celiac axis divided, releasing the celiac axis, specimen of ligament Indications: Nikki Martins is an 44 y.o. female who is having surgery for Median arcuate ligamentsyndrome [I77.4]. The patient was seen in the preoperative area. The risks, benefits, complications, treatment options, non-operative alternatives, expected recovery and outcomes were discussed with the patient. The possibilities of reaction to medication, pulmonary aspiration, injury to surrounding structures, bleeding, recurrent infection, the need for additional procedures, failure to diagnose a condition, and creating a complication requiring transfusion or operation were discussed with the patient. The patient concurred with the proposed plan, giving informed consent. The site of surgery was properly noted/marked if necessary per policy. The patient has been actively warmed in preoperative area. Preopera tive antibiotics have been ordered and given within 1 hours of incision. Venous thrombosis prophylaxis are not indicated. Procedure Details: Supine position, abdomen prepped and draped. 4 ports placed by general surgery team. Please refer to their note. Once the ports were placed and tap block placed, I entered the pars flaccida and took down the right fredi of the diaphragm exposing the supraceliac abdominal aorta. Once this was confirmed the dissection was taken distally dividing the fibers of the median arcuate ligament and diaphragm. The transversely oriented muscle fibers and ligament fibers were divided with hook cautery and LigaSure energy. Care was taken to avoid injury to the celiac axis. Gentle downward retraction as wellas lateral traction from the left mid axillary port allowed visualization of the celiac axis. Several large nerve trunks were divided. A specimen of the ligament was sent for pathology. Hemostasis was obtained once the celiac axis was freed and a celiac plexus block was then placed consisting of a mixture of Kenalog, bupivacaine, and lidocaine with epinephrine. A total of 10 cc of this material was injected into the tissues surrounding the aorta and the diaphragm. Please refer to the general surgery note regarding the conduct of the closure of the laparoscopic access ports. Evidence of Infection: No Complications: None; patient tolerated the procedure well. Disposition: PACU - hemodynamically stable. Condition: stable Additional Details: Attending Attestation: I was present and scrubbed for the entire procedure. Hossein Potter documented in this [facility] Work Phone: [phone]) 805-870909-24-2025 Hospital course Narrative* Janae Donnelly, TUFTING MACHINE OPERATOR-AUTOMATION ENGINEERING MANAGER - 01/30/2025 10:46 AM EDT Discharge Diagnosis Median arcuate ligament syndrome Issues Requiring Follow-Up - Post-operative follow up Test Results Pending At Discharge Pending Labs Order Current Status BB ORDER ONLY - Antibody Identification In process Path Review-Immunohematology In process Surgical Pathology Exam In process Hospital Course 44 year old female presented for elective laparoscopic MALS release on 01/[address] Potter and Nancy. Procedure was tolerated well. She was admitted post- operatively and progressed appropriately. Upon discharge, pain was moderately controlled on PRN regimen, tolerating regular diet, ambulating, and voiding without difficulty. She was discharged home with instructions regarding outpatient surgical follow up. Visit Vitals BP 147/81 (BP Location: Right arm, Patient Position: Standing) Pulse 74 Temp 36.4 C (97.5 F) (Temporal) Resp 18 Vitals: 01/30/25 0523 Weight: 64.3 kg (141 lb 12.1 oz) Immunization History Administered Date(s) Administered COVID-19, mRNA, LNP-S, PF, 30 mcg/0.3 mL dose 03/04/2021, 03/25/2021 Influenza, seasonal, injectable 06/01/2013 Tdap vaccine, age 7 year and older (BOOSTRIX, ADACEL) 09/14/2012 Pertinent Physical Exam At Time of Discharge Physical Exam Vitals reviewed. Constitutional: General: She is not in acute distress. Cardiovascular: Rate and Rhythm: Normal rate and regular rhythm. Pulmonary: Effort: Pulmonary effort is normal. No respiratory distress. Comments: RA Abdominal: General: There is no distension. Palpations: Abdomen is soft. Comments: Appropriately tender to palpation, laparoscopic sites well approximated. Skin: General: Skin is warm and dry. Neurological: Mental Status: She is alert and oriented to person, place, and time. Psychiatric: Behavior: Behavior normal. Home Medications Medication List START taking these medications docusate sodium 100 mg capsule; Commonly known as: Colace; Take 1 capsule (100 mg) by mouth 2 times a day. To prevent constipation while taking narcotics methocarbamol 500 mg tablet; Commonly known as: Robaxin; Take 1 tablet (500 mg) by mouth every 6 hours if needed for muscle spasms. oxyCODONE 5 mg immediate release tablet; Commonly known as: Roxicodone; Take 1 tablet (5 mg) by mouth every 6 hours if needed for severe pain (7 - 10). CONTINUE taking these medications amitriptyline 50 mg tablet; Commonly known as: Elavil cholecalciferol 25 mcg (1,000 units) tablet; Commonly known as: Vitamin D-3 cyanocobalamin 1,000 mcg tablet; Commonly known as: Vitamin B-12 dicyclomine 10 mg capsule; Commonly known as: Bentyl famotidine 20 mg tablet; Commonly known as: Pepcid omeprazole [address] capsule; Commonly known as: PriLOSEC ondansetron ODT 4 mg disintegrating tablet; Commonly known as: Zofran-ODT Outpatient Follow-Up Message sent to office for scheduling follow up with Dr Cruz. TRACEE Rodriguez documented in this [facility] Work Phone: [phone]) [phone] History of Present illness Narrative* Vanessa Evans MD - 01/30/2025 10:24 AM EDT Postop Pain HPI - Palliative: relieved with IV analgesics and regional local anesthetics Provocative: movement Quality: burning and aching Radiation: none Severity: 10/16 Timing: constant 24-HOUR OPIOID CONSUMPTION: Dilaudid 1.7mg Scheduled medications Scheduled Medications[1] Continuous medications Continuous Medications[2] PRN medications PRN Medications[3] Physical Exam: Constitutional: no distress, alert and cooperative Eyes: clear sclera Head/Neck: No apparent injury, trachea midline Respiratory/Thorax: Patent airways, thorax symmetric, breathing comfortably Cardiovascular: no pitting edema Gastrointestinal: Nondistended Musculoskeletal: ROM intact Extremities: no clubbing Neurological: alert, toscano x4 Psychological: Appropriate affect Results for orders placed or performed during the hospital encounter of 01/29/25 (from the past 24 hours) Type and Screen Result Value Ref Range ABO TYPE B Rh TYPE NEG ANTIBODY SCREEN POS CBC Result Value Ref Range WBC 15.8 (H) 4.4 - 11.3 x10*3/uL nRBC 0.0 0.0 - 0.0 /100 WBCs RBC 3.75 (L) 4.00 - 5.20 x10*6/uL Hemoglobin 11.9 (L) 12.0 - 16.0 g/dL Hematocrit 35.8 (L) 36.0 - 46.0 % MCV 96 80 - 100 fL MCH 31.7 26.0 - 34.0 pg MCHC 33.2 32.0 - 36.0 g/dL RDW 13.0 11.5 - 14.5 % Platelets 139 (L) 150 - 450 x10*3/uL Basic metabolic panel Result Value Ref Range Glucose 104 (H) 74 - 99 mg/dL Sodium 140 136 - 145 mmol/L Potassium 4.0 3.5 - 5.3 mmol/L Chloride 107 98 - 107 mmol/L Bicarbonate 28 21 - 32 mmol/L Anion Gap 9 (L) 10 - 20 mmol/L Urea Nitrogen 12 6 - 23 mg/dL Creatinine 0.69 0.50 - 1.05 mg/dL eGFR >90 >60 mL/min/1.73m*2 Calcium 8.4 (L) 8.6 - 10.6 mg/dL Magnesium Result Value Ref Range Magnesium 2.52 (H) 1.60 - 2.40 mg/dL Plan: Continue recommendations - IV Mg 1g Q8H x 3 doses - IV Toradol 30mg Q6H for 6 doses per surgical service - IV Tylenol 1000mg Q8H - IV Robaxin 1000mg QID - Lidocaine patches around affected site as needed - Dilaudid 0.2mg Q4H for breakthrough pain. If dilaudid pushes fail to provide adequate pain relief, consider hydromorphone ASSET PROTECTION GREETER (opioid naive order set). Avoid basal rates 2/2 elevated risk of respiratory depression. - Continuous pulse ox - Acute pain team will sign off Vanessa Evans CA-2, [place]est[place] [phone] ph [phone] [1] acetaminophen, 650 mg, oral, q6h amitriptyline, 50 mg, oral, Nightly cholecalciferol, 25 mcg, oral, Daily cyanocobalamin, 1,000 mcg, oral, Daily famotidine, 20 mg, oral, Daily heparin (porcine), 5,000 Units, subcutaneous, q8h lidocaine, 1 patch, transdermal, Daily methocarbamol, 500 mg, oral, q6h EMIL ondansetron ODT, 4 mg, oral, q6h pantoprazole, 40 mg, oral, Daily before breakfast polyethylene glycol, 17 g, oral, Daily scopolamine, 1 patch, transdermal, q72h [2] [3] PRN medications: dicyclomine, naloxone, oxyCODONE, oxyCODONE Cosigned by Dashawn Samuels MD at 01/30/2025 10:41 AM EDT Associated attestation - Dashawn Samuels MD - 01/30/2025 10:41 AM EDT I personally saw the patient, evaluate and reviewed labs. I agreed with resident's plan. * Tanya Antunez - 01/30/2025 9:13 AM EDT 01/30/25 0913 Rapid Rounds Attendance Provider;Nurse;Care Transitions Expected Discharge Disposition Home Today we still await: (Pt dc'ing today) Review at Escalation Rounds No escalation needed Plan per Medical/Surgical team: Home. No home going needs anticipated for this pt at this time. Discharge disposition: Home. No home going needs anticipated for this pt at this time. ADOD: 01/30 This TCC will continue to follow for home going needs and safe DC plan. Tanya Antunez * Naomi Ledezma - 01/28/2025 11:46 AM EDT Pharmacy Medication History Review Nkiki Martins is a 44 y.o. female who is planned to be admitted for Median arcuate ligament syndrome. Pharmacy called the patient prior to their scheduled procedure and reviewed the patient's [id number] medications for accuracy. Medications ADDED: Famotidine 20mg Medications CHANGED: Dicyclomine 10mg directions from #[id number] to #[id number] Omeprazole 20mg #2BID to omeprazole 40mg #1QD Medications REMOVED: none Please review updated prior to admission medication list and comments regarding how patient may be taking medications differently by going to Admission tab --> Admission Orders --> Admit Orders/ Review prior to admission medications. Preferred pharmacy, last doses of medications, and allergies to be confirmed with patient by nursing the day of procedure. Sources used to complete the med history include: [facility] Pharmacy dispense history Patient Interview Moderate historian Chart Review Care Everywhere Below are additional concerns with the patient's DIRECTOR OF CARDIAC CATH LAB list. Patient states they are taking #1 tablet of famotidine 20mg once daily. Takes 12 hours after omeprazole 40mg. OTC Patient states they are taking #1 capsule of dicyclomine 10mg every 6 hours if needed. L.F. 12/18/24 #120/30d Patient states they are taking #1 capsule of omeprazole 40mg once daily. L.F. 10/29/24 #90/90d Naomi Ledezma [facility] Please reach out via Secure Chat for questions documented in this [facility] Work Phone: [phone]) [phone] Hospital Note* Hospital Course - Janae Donnelly APRN-KP - 01/30/2025 8:54 AM EDT 44 year old female presented for elective laparoscopic MALS release on 01/[address] Potter and Nancy. Procedure was tolerated well. She was admitted post- operatively and progressed appropriately. Upon discharge, pain was moderately controlled on PRN regimen, tolerating regular diet, ambulating, and voiding without difficulty. She was discharged home with instructions regarding outpatient surgical follow up. [facility] Work Phone: [phone]) [phone] Hospital Discharge instructions* Discharge Instructions* TRACEE Rodriguez - 01/30/2025 8:52 AM EDT For pain control: Take 650mg Tylenol every 4-6 hours. You may rotate with ibuprofen as needed. For severe pain, you may take oxycodone as needed as prescribed. Try to limit your use of narcotic pain medication. If taking oxycodone, please take with stool softener, such as colace, to prevent constipa tion. You may use the muscle relaxant, robaxin, to help with pain control. - Follow up with Dr Cruz/Abbey for post-op visit. Message was sent to office for scheduling. [facility] Work Phone: [phone]) [phone] dental manager Note* Significant Event - Samson Steele MD - 01/29/2025 3:05 PM EDT S: Patient seen at bedside s/p laparoscopic median arcuate ligament release for post-operative evaluation. Denies f/c, n/v, SOB, CP. Pain is appropriately controlled on current pain regimen O: BP 142/79 Pulse 59 Temp 36 C (96.8 F) Resp 14 Ht 1.702 m (5' 7 ) Wt 63.2 kg (139 lb 5.3 oz) SpO2 96% BMI 21.82 kg/m - General: laying in bed comfortably, NAD - CV: regular rate and rhythm - Pulm: normal respiratory effort on RA - Abd: tender to palpation on right abdomen, mildly distended, incisional tenderness present; incisions well approximated with dermabond - : No rene in place Drains: None Drips: None A/P: Patient is doing well post-operatively. No changes in management at this time. - okay for regular diet - pain management per acute pain management team Samson Steele MD PGY-1 General Surgery [facility] Work Phone: [phone] Consult note* Zach Ibanez MD - 01/29/2025 12:41 PM EDTAssociated Order(s): INPATIENT CONSULT TO ANESTHESIA ACUTE PAIN Nikki Martins is a 44 y.o. year old female patient who presents for Procedure(s): RELEASE, LIGAMENT, MEDIAN ARCUATE, LAPAROSCOPIC RELEASE, LIGAMENT, MEDIAN ARCUATE, LAPAROSCOPIC with Vee Cruz MD MPH on 01/29/2025. Acute Painconsulted for assistance with medical pain control in the post-operative setting. Patient has a past medical history significant for epigastric pain with onset November 2023, made worse after eating. Workup ultimately demonstrated peak celiac axis velocities up to 280 cm/s in expiration with normalization with inspiration; patient received a diagnostic celiac plexus block which provided relief for 8 hours, during which she was able to eat a meal without discomfort. She describes the pain as cramping with bilateral spasms, localized to the inferior aspect of her sternum, made worse with activity, and improves with omeprazole. She underwent a median arcuate ligament release on 01/29 in the AM. Anticipated Postop Pain Issues - Palliative: typically relieved with IV analgesics and regional local anesthetics Provocative: typically with movement Quality: typically burning and aching Radiation: typically none Severity: typically severe 8-10/10 Timing: typically constant Medical History[1] Surgical History[2] Family History[3] Social History Socioeconomic History Marital status: Single Spouse name: Not on file Number of children: Not on file Years of education: Not on file Highest education level: Not on file Occupational History Not on file Tobacco Use Smoking status: Former Types: Cigarettes Passive exposure: Never Smokeless tobacco: Never Vaping Use Vaping status: Not on file Substance and Sexual Activity Alcohol use: Not Currently Drug use: Never Sexual activity: Not on file Other Topics Concern Not on file Social History Narrative Not on file Social Drivers of Health Financial Resource Strain: Not on file Food Insecurity: Not on file Transportation Needs: Not on file Physical Activity: Not on file Stress: Patient Declined (04/30/2024) Received from [facility] Rector of Occupational Health - Occupational Stress Questionnaire Feeling of Stress : Patient declined Social Connections: Not on file Intimate Partner Violence: Not on file Housing Stability: Not on file RX Allergies[4] Results for orders placed or performed during the hospital encounter of 01/29/25 (from the past 24 hours) Type And Screen Result Value Ref Range ABO TYPE B Rh TYPE NEG ANTIBODY SCREEN POS Abo/Rh Group Test - STAT (VERAB) Result Value Ref Range ABO TYPE B Rh TYPE NEG Nikki Martins is a 44 y.o. year old female patient who presents for Procedure(s): RELEASE, LIGAMENT, MEDIAN ARCUATE, LAPAROSCOPIC RELEASE, LIGAMENT, MEDIAN ARCUATE, LAPAROSCOPIC with Vee Cruz MD MPH on 01/29/2025. Acute Painconsulted for assistance with pain control. Based on patient's symptoms and apparent relief with celiac plexus block, most likely etiology related to median arcuate ligament syndrome. Because the procedure was performed under laparoscopy, regional peripheral nerve blockade is unlikely to offer meaningful relief and the acute pain service does not offer celiac plexus blocks on an inpatient basis. Maximize medical management of pain at this time. Plan: Recommendations: - IV Mg 1g Q8H x 3 doses - IV Toradol 30mg Q6H for 6 doses per surgical service - IV Tylenol 1000mg Q8H - IV Robaxin 1000mg QID - Lidocaine patches around affected site as needed - Dilaudid 0.2mg Q4H for breakthrough pain. If dilaudid pushes fail to provide adequate pain relief, consider hydromorphone ASSET PROTECTION GREETER (opioid naive order set). Avoid basal rates 2/2 elevated risk of respiratory depression. - Continuous pulse ox Zach Ibanez MD Anesthesiology, PGY-3/CA-2 [place] [id number] ph [phone] [1] Past Medical History: Diagnosis Date Anemia Autoimmune disorder (Multi) 2023 Found markers but no diagnosis. Rhumatologist left peactice COVID-19 2021 GERD (gastroesophageal reflux disease) Hernia, internal [2] Past Surgical History: Procedure Laterality Date ESOPHAGOGASTRODUODENOSCOPY HYSTERECTOMY [3] Family History Problem Relation Name Age of Onset Heart attack Father Sky Heart attack Mother oLrraine Irritable bowel syndrome Sister Sanam [4] Allergies Allergen Reactions Penicillins Anaphylaxis, Hives, Rash and Unknown Opioids - Morphine Analogues Nausea/vomiting Oxycodone-Acetaminophen GI intolerance Nausea, vomiting, and dizziness Pilocarpine Nausea/vomiting Cosigned by Dashawn Samuels MD at 01/29/2025 1:07 PM EDT Associated attestation - Dashawn Samuels MD - 01/29/2025 1:07 PM EDT I personally saw the patient, discussed risks and benefits, answered all questions, reviewed the chart and agree with the resident's plan. [facility] Work Phone: [phone]) [phone] Consult note* Zach Ibanez MD - 01/29/2025 12:41 PM EDTAssociated Order(s): INPATIENT CONSULT TO ANESTHESIA ACUTE PAIN Nikki Martins is a 44 y.o. year old female patient who presents for Procedure(s): RELEASE, LIGAMENT, MEDIAN ARCUATE, LAPAROSCOPIC RELEASE, LIGAMENT, MEDIAN ARCUATE, LAPAROSCOPIC with Vee Cruz MD MPH on 01/29/2025. Acute Painconsulted for assistance with medical pain control in the post-operative setting. Patient has a past medical history significant for epigastric pain with onset November 2023, made worse after eating. Workup ultimately demonstrated peak celiac axis velocities up to 280 cm/s in expiration with normalization with inspiration; patient received a diagnostic celiac plexus block which provided relief for 8 hours, during which she was able to eat a meal without discomfort. She describes the pain as cramping with bilateral spasms, localized to the inferior aspect of her sternum, made worse with activity, and improves with omeprazole. She underwent a median arcuate ligament release on 01/29 in the AM. Anticipated Postop Pain Issues - Palliative: typically relieved with IV analgesics and regional local anesthetics Provocative: typically with movement Quality: typically burning and aching Radiation: typically none Severity: typically severe 8-10/10 Timing: typically constant Medical History[1] Surgical History[2] Family History[3] Social History Socioeconomic History Marital status: Single Spouse name: Not on file Number of children: Not on file Years of education: Not on file Highest education level: Not on file Occupational History Not on file Tobacco Use Smoking status: Former Types: Cigarettes Passive exposure: Never Smokeless tobacco: Never Vaping Use Vaping status: Not on file Substance and Sexual Activity Alcohol use: Not Currently Drug use: Never Sexual activity: Not on file Other Topics Concern Not on file Social History Narrative Not on file Social Drivers of Health Financial Resource Strain: Not on file Food Insecurity: Not on file Transportation Needs: Not on file Physical Activity: Not on file Stress: Patient Declined (04/30/2024) Received from [facility] R[facility] of Occupational Health - Occupational Stress Questionnaire Feeling of Stress : Patient declined Social Connections: Not on file Intimate Partner Violence: Not on file Housing Stability: Not on file RX Allergies[4] Results for orders placed or performed during the hospital encounter of 01/29/25 (from the past 24 hours) Type And Screen Result Value Ref Range ABO TYPE B Rh TYPE NEG ANTIBODY SCREEN POS Abo/Rh Group Test - STAT (VERAB) Result Value Ref Range ABO TYPE B Rh TYPE NEG Nikki Martins is a 44 y.o. year old female patient who presents for Procedure(s): RELEASE, LIGAMENT, MEDIAN ARCUATE, LAPAROSCOPIC RELEASE, LIGAMENT, MEDIAN ARCUATE, LAPAROSCOPIC with Vee Cruz MD MPH on 01/29/2025. Acute Painconsulted for assistance with pain control. Based on patient's symptoms and apparent relief with celiac plexus block, most likely etiology related to median arcuate ligament syndrome. Because the procedure was performed under laparoscopy, regional peripheral nerve blockade is unlikely to offer meaningful relief and the acute pain service does not offer celiac plexus blocks on an inpatient basis. Maximize medical management of pain at this time. Plan: Recommendations: - IV Mg 1g Q8H x 3 doses - IV Toradol 30mg Q6H for 6 doses per surgical service - IV Tylenol 1000mg Q8H - IV Robaxin 1000mg QID - Lidocaine patches around affected site as needed - Dilaudid 0.2mg Q4H for breakthrough pain. If dilaudid pushes fail to provide adequate pain relief, consider hydromorphone ASSET PROTECTION GREETER (opioid naive order set). Avoid basal rates 2/2 elevated risk of respiratory depression. - Continuous pulse ox Zach Ibanez MD Anesthesiology, PGY-3/CA-2 [place] [phone] ph [phone] [1] Past Medical History: Diagnosis Date Anemia Autoimmune disorder (Multi) 2023 Found markers but no diagnosis. Rhumatologist left peactice COVID-2021 GERD (gastroesophageal reflux disease) Hernia, internal [2] Past Surgical History: Procedure Laterality Date ESOPHAGOGASTRODUODENOSCOPY HYSTERECTOMY [3] Family History Problem Relation Name Age of Onset Heart attack Father Sky Heart attack Mother Lorraine Irritable bowel syndrome Sister Sanam [4] Allergies Allergen Reactions Penicillins Anaphylaxis, Hives, Rash and Unknown Opioids - Morphine Analogues Nausea/vomiting Oxycodone-Acetaminophen GI intolerance Nausea, vomiting, and dizziness Pilocarpine Nausea/vomiting Cosigned by Dashawn Samuels MD at 01/29/2025 1:07 PM EDT Associated attestation - Dashawn Samuels MD - 01/29/2025 1:07 PM EDT I personally saw the patient, discussed risks and benefits, answered all questions, reviewed the chart and agree with the resident's plan. [facility] Work Phone: [phone]) [phone] Surgery Surgical operation note* Op Note - Hossein Potter MD - 01/29/2025 8:10 AM EDT RELEASE, LIGAMENT, MEDIAN ARCUATE, LAPAROSCOPIC Operative Note Date: 01/29/2025 OR Location: [facility] OR Name: Nikki Martins, : 1980, Age: 44 y.o., , Sex: female Diagnosis Pre-op Diagnosis * Median arcuate ligament syndrome [I77.4] Post-op Diagnosis * Median arcuate ligament syndrome [I77.4] Procedures RELEASE, LIGAMENT, MEDIAN ARCUATE, LAPAROSCOPIC [id number] - UT UNLISTED LAPAROSCOPY PX ABD PERTONEUM & OMENTUM RELEASE, LIGAMENT, MEDIAN ARCUATE, LAPAROSCOPIC [id number] - UT UNLISTED LAPAROSCOPY PX ABD PERTONEUM & OMENTUM Surgeons Panel 1: * Hossein Potter - Primary Panel 2: * Vee Cruz - Primary Resident/Fellow/Other Teaching Manager: Surgeons and Role: Panel 2: * Radha Pederson MD - Resident - Assisting * Sunitha Thomas MD - Resident - Assisting * Ingrid Lackey MD - Fellow Staff: Basting Cleaner: Katy Cano Person: [facility] Anesthesia Staff: Anesthesiologist: Nasima Valladares MD C-AA: ELISA Lambert Procedure Summary Anesthesia: Anesthesia type not filed in the log. ASA: ASA status not filed in the log. Estimated Blood Loss: 5mL Intra-op Medications: Administrations occurring from 0700 to 1100 on 01/29/25: Medication Name Total Dose sodium chloride 0.9 % irrigation solution 1,000 mL BUPivacaine HCl (Marcaine) 0.25 % (2.5 mg/mL) injection 50 mL bupivacaine PF 0.25 % (Marcaine) 0.25 % (2.5 mg/mL) 20 mL, lidocaine-epinephrine (Xylocaine W/EPI) 2 %-1:100,000 20 mL, triamcinolone acetonide (Kenalog-40) 40 mg/mL 1 mL syringe 6 mL acetaminophen (Ofirmev) injection 1,000 mg ceFAZolin (Ancef) 1 g 2 g dexAMETHasone (Decadron) 10 mg/mL 8 mg dexmedeTOMIDine (Precedex) bolus from bag 30 mcg esmolol (Brevibloc) injection 100 mg fentaNYL (Sublimaze) injection 50 mcg/mL 100 mcg ketamine injection 50 mg/ 5 mL (10 mg/mL) 30 mg LR bolus Cannot be calculated LR bolus Cannot be calculated lidocaine (cardiac) injection 2% prefilled syringe 50 mg midazolam PF (Versed) injection 1 mg/mL 2 mg nitroglycerin 1 mg in 10 mL D5W IV bolus 100 mcg propofol (Diprivan) injection 10 mg/mL 200 mg rocuronium 10 mg/mL 100 mg NaCl 0.9 % bolus Cannot be calculated Anesthesia Record Intraprocedure I/O Totals Intake Dexmedetomidine 0.00 mL The total shown is the total volume documented since Anesthesia Start was filed. Total Intake 0 mL Output Urine 75 mL Total Output 75 mL Net Net Volume -75 mL Specimen: ID Type Source Tests Collected by Time 1 : MEDIAN ARCUATE LIGAMENT Tissue LIGAMENT SURGICAL PATHOLOGY EXAM Hossein Potter MD 01/29/2025 0905 Drains and/or Catheters: Urethral Catheter Non-latex 16 Fr. (Active) Tourniquet Times: Implants: Findings: Median arcuate ligament overlying celiac axis divided, releasing the celiac axis, specimen of ligament Indications: Nikki Martins is an 44 y.o. female who is having surgery for Median arcuate ligamentsyndrome [I77.4]. The patient was seen in the preoperative area. The risks, benefits, complications, treatment options, non-operative alternatives, expected recovery and outcomes were discussed with the patient. The possibilities of reaction to medication, pulmonary aspiration, injury to surrounding structures, bleeding, recurrent infection, the need for additional procedures, failure to diagnose a condition, and creating a complication requiring transfusion or operation were discussed with the patient. The patient concurred with the proposed plan, giving informed consent. The site of surgery was properly noted/marked if necessary per policy. The patient has been actively warmed in preoperative area. Preopera tive antibiotics have been ordered and given within 1 hours of incision. Venous thrombosis prophylaxis are not indicated. Procedure Details: Supine position, abdomen prepped and draped. 4 ports placed by general surgery team. Please refer to their note. Once the ports were placed and tap block placed, I entered the pars flaccida and took down the right fredi of the diaphragm exposing the supraceliac abdominal aorta. Once this was confirmed the dissection was taken distally dividing the fibers of the median arcuate ligament and diaphragm. The transversely oriented muscle fibers and ligament fibers were divided with hook cautery and LigaSure energy. Care was taken to avoid injury to the celiac axis. Gentle downward retraction as wellas lateral traction from the left mid axillary port allowed visualization of the celiac axis. Several large nerve trunks were divided. A specimen of the ligament was sent for pathology. Hemostasis was obtained once the celiac axis was freed and a celiac plexus block was then placed consisting of a mixture of Kenalog, bupivacaine, and lidocaine with epinephrine. A total of 10 cc of this material was injected into the tissues surrounding the aorta and the diaphragm. Please refer to the general surgery note regarding the conduct of the closure of the laparoscopic access ports. Evidence of Infection: No Complications: None; patient tolerated the procedure well. Disposition: PACU - hemodynamically stable. Condition: stable Additional Details: Attending Attestation: I was present and scrubbed for the entire procedure. Hossein Potter [facility] Work Phone: [phone]) [phone] History and physical note* Ingrid Lackey MD - 01/29/2025 6:52 AM EDT History Of Present Illness Nikki Martins is a 44 y.o. female presenting with evaluation of MALS. She starting having epigastric pain in November 2023, worse after eating. Since then, she has had an extensive workup, including anEGD and colonoscopy, with findings of a small hiatal hernia. She had a RUQ US that did not demonstrate any gallstones or cholecystitis, and had a HIDA scan that was normal. She had a GES done also which was normal. Her mesenteric duplex showed peak celiac axis velocities up to 280 cm/s in expiration with normalization with inspiration. She saw Dr. Potter in May 2024, and more recently underwenta celiac plexus block on 07/12/24. She had a great response to that for 8 hours after, during which she was pain free and ate a meal and [employer]. The pain has returned since and is constant,worse when she eats. She has had laparoscopic evaluation for endometriosis in the past. She describes pain as cramping and spasms to both sides. She notes improvement of the pain with omeprazole. She has had 10-20 lb weight loss. With further questioning, her symptoms are as follows; Was camping in [place] and thought had flu for 3 days. Lots of vomiting but no diarrhea or fever. Then had bloating, really loose stools and then chest started burning. Trinity the prilosec helped but did not completely relive. Threw up all she ate. Lost 30 lbs over 4-5 months. Can eat chicken and rice. Always has pain but sometimes spasms so bad feels like ribs will squish her. Kept a journal looking for food triggers. Can eat 2 small meals and then does a coupld of snacks as can't eat much. Pain at bottom o sternum and never goes away. Can only get a couple of hours of sleep. Increased with actibviy. Uses tylenol and ibuprofen and nothing works. Notes she was mofing bowels but was a lot of filiberto. Then started metamucil and goes regularly. Notes does not eat much. Doing mostly nutrition drinks. She notes theinjection felt like night and day. Even felt more energetic. Started amytriptilline in March and that helped the dysphagia. She is on 50 at bedtime. She could never eat fast. Feels like food backs up. She notes multiple family members had gb removed. Dysphagia was so bad and could not take pills. She has completed pre operative workup and elects to proceed with surgery. She denies any changes in medical history since she was last seen. Past Medical History Medical History[1] Surgical History Surgical History[2] Social History She reports that she has never smoked. She has never been exposed to tobacco smoke. She has never used smokeless tobacco. She reports that she does not drink alcohol and does not use drugs. Family History Family History[3] Allergies Penicillins, Opioids - morphine analogues, Oxycodone-acetaminophen, and Pilocarpine Review of Systems Constitutional: Negative for chills and fever. HENT: Negative for facial swelling, nosebleeds, rhinorrhea and sinus pain. Respiratory: Negative for apnea, choking and chest tightness. Cardiovascular: Negative for chest pain, palpitations and leg swelling. Gastrointestinal: Negative for nausea and vomiting. Endocrine: Negative for polydipsia, polyphagia and polyuria. Genitourinary: Negative for difficulty urinating, flank pain and urgency. Skin: Negative for color change, pallor and rash. Neurological: Negative for tremors, light-headedness and numbness. Psychiatric/Behavioral: Negative for agitation, behavioral problems, confusion, hallucinations and self-injury. Physical Exam Physical Exam: Constitutional: Well developed, awake/alert/oriented x3, no distress, alert and cooperative Eyes: PERRL, EOMI, clear sclera Head/Neck: Neck supple, no apparent injury, No JVD, trachea midline Respiratory/Thorax: good chest expansion, thorax symmetric Cardiovascular: Regular, rate and rhythm, 2+ equal pulses of the extremities Gastrointestinal: Nondistended, soft, minimally tender, no rebound tenderness or guarding, no masses palpable Musculoskeletal: ROM intact, no joint swelling, normal strength Extremities: normal extremities, no cyanosis edema, contusions or wounds, no clubbing Neurological: alert and oriented x3, intact senses, Psychological: Appropriate mood and behavior Skin: Warm and dry, no lesions, no rashes Last Recorded Vitals There were no vitals taken for this visit. Relevant Results Assessment & Plan Median arcuate ligament syndrome Nikki Martins is a 44yo with MALS who presents today for surgical intervention. Plan for laparoscopic median arcuate ligament release. The following risks of MALS release were discussed with patient and patient's questions answered: , failure to resolve symptoms, DVT/PE, hemorrhage, bowel obstructions, damage to organs, infection, need for reoperation Patient expressed understanding Consent obtained Proceed as planned I spent 40 minutes in the professional and overall care of this patient. Ingrid Lackey MD [1] Past Medical History: Diagnosis Date Anemia Autoimmune disorder (Multi) 2023 Found markers but no diagnosis. [facility] GERD (gastroesophageal reflux disease) Hernia, internal [2] Past Surgical History: Procedure Laterality Date ESOPHAGOGASTRODUODENOSCOPY HYSTERECTOMY [3] Family History Problem Relation Name Age of Onset Heart attack Father Sky Heart attack Mother Lorraine Irritable bowel syndrome Sister Sanam [facility] Work Phone: [phone] 301-505209-23-2025 History and physical note* Ingrid Lackey MD - 01/29/2025 6:52 AM EDT History Of Present Illness Nikki Martins is a 44 y.o. female presenting with evaluation of MALS. She starting having epigastric pain in November 2023, worse after eating. Since then, she has had an extensive workup, including anEGD and colonoscopy, with findings of a small hiatal hernia. She had a RUQ US that did not demonstrate any gallstones or cholecystitis, and had a HIDA scan that was normal. She had a GES done also which was normal. Her mesenteric duplex showed peak celiac axis velocities up to 280 cm/s in expiration with normalization with inspiration. She saw Dr. Potter in May 2024, and more recently underwenta celiac plexus block on 07/12/24. She had a great response to that for 8 hours after, during which she was pain free and ate a meal and [employer]. The pain has returned since and is constant,worse when she eats. She has had laparoscopic evaluation for endometriosis in the past. She describes pain as cramping and spasms to both sides. She notes improvement of the pain with omeprazole. She has had 10-20 lb weight loss. With further questioning, her symptoms are as follows; Was camping in [place] and thought had flu for 3 days. Lots of vomiting but no diarrhea or fever. Then had bloating, really loose stools and then chest started burning. Trinity the prilosec helped but did not completely relive. Threw up all she ate. Lost 30 lbs over 4-5 months. Can eat chicken and rice. Always has pain but sometimes spasms so bad feels like ribs will squish her. Kept a journal looking for food triggers. Can eat 2 small meals and then does a coupld of snacks as can't eat much. Pain at bottom o sternum and never goes away. Can only get a couple of hours of sleep. Increased with actibviy. Uses tylenol and ibuprofen and nothing works. Notes she was mofing bowels but was a lot of filiberto. Then started metamucil and goes regularly. Notes does not eat much. Doing mostly nutrition drinks. She notes theinjection felt like night and day. Even felt more energetic. Started amytriptilline in March and that helped the dysphagia. She is on 50 at bedtime. She could never eat fast. Feels like food backs up. She notes multiple family members had gb removed. Dysphagia was so bad and could not take pills. She has completed pre operative workup and elects to proceed with surgery. She denies any changes in medical history since she was last seen. Past Medical History Medical History[1] Surgical History Surgical History[2] Social History She reports that she has never smoked. She has never been exposed to tobacco smoke. She has never used smokeless tobacco. She reports that she does not drink alcohol and does not use drugs. Family History Family History[3] Allergies Penicillins, Opioids - morphine analogues, Oxycodone-acetaminophen, and Pilocarpine Review of Systems Constitutional: Negative for chills and fever. HENT: Negative for facial swelling, nosebleeds, rhinorrhea and sinus pain. Respiratory: Negative for apnea, choking and chest tightness. Cardiovascular: Negative for chest pain, palpitations and leg swelling. Gastrointestinal: Negative for nausea and vomiting. Endocrine: Negative for polydipsia, polyphagia and polyuria. Genitourinary: Negative for difficulty urinating, flank pain and urgency. Skin: Negative for color change, pallor and rash. Neurological: Negative for tremors, light-headedness and numbness. Psychiatric/Behavioral: Negative for agitation, behavioral problems, confusion, hallucinations and self-injury. Physical Exam Physical Exam: Constitutional: Well developed, awake/alert/oriented x3, no distress, alert and cooperative Eyes: PERRL, EOMI, clear sclera Head/Neck: Neck supple, no apparent injury, No JVD, trachea midline Respiratory/Thorax: good chest expansion, thorax symmetric Cardiovascular: Regular, rate and rhythm, 2+ equal pulses of the extremities Gastrointestinal: Nondistended, soft, minimally tender, no rebound tenderness or guarding, no masses palpable Musculoskeletal: ROM intact, no joint swelling, normal strength Extremities: normal extremities, no cyanosis edema, contusions or wounds, no clubbing Neurological: alert and oriented x3, intact senses, Psychological: Appropriate mood and behavior Skin: Warm and dry, no lesions, no rashes Last Recorded Vitals There were no vitals taken for this visit. Relevant Results Assessment & Plan Median arcuate ligament syndrome Nikki Martins is a 44yo with MALS who presents today for surgical intervention. Plan for laparoscopic median arcuate ligament release. The following risks of MALS release were discussed with patient and patient's questions answered: , failure to resolve symptoms, DVT/PE, hemorrhage, bowel obstructions, damage to organs, infection, need for reoperation Patient expressed understanding Consent obtained Proceed as planned I spent 40 minutes in the professional and overall care of this patient. Ingrid Lackey MD [1] Past Medical History: Diagnosis Date Anemia Autoimmune disorder (Multi) 2023 Found markers but no diagnosis. Rhumatologist left peactice COVID-19 2021 GERD (gastroesophageal reflux disease) Hernia, internal [2] Past Surgical History: Procedure Laterality Date ESOPHAGOGASTRODUODENOSCOPY HYSTERECTOMY [3] Family History Problem Relation Name Age of Onset Heart attack Father Sky Heart attack Mother Lorraine Irritable bowel syndrome Sister Sanam * Sunitha Thomas MD - 01/29/2025 6:02 AM EDT H&P reviewed. The patient was examined and there are no changes to the H&P. Cosigned by Hossein Potter MD at 01/29/2025 11:17 AM EDT Source Note - Dominga Mak APRN-AUTOMATION ENGINEERING MANAGER - 01/16/2025 10:00 AM EDT Images from the original note were not included. CPM/PAT Evaluation Name: Nikki Martins (Nikki Martins) /Age: 711/22/1980/44 y.o. Visit Type: In-Person Chief Complaint: perioperative evaluation Referring physician: Dr. Hossein WEEKS The patient is a 44 year old female with ymptoms of median arcuate ligament syndrome including postprandial abdominal pain and discomfort with certain postures and worsening with activity. She is s/p celiac plexus block with minimal relief. She is referred today for perioperative evaluation in anticipation of laparoscopic median arcuate ligament release scheduled for 01/29/[address] Potter. Medical History[1] Surgical History[2] Patient has no history on file for sexual activity. Family History[3] Allergies[4] Prior to Admission medications Medication Sig Start Date End Date Taking? Authorizing Provider amitriptyline (Elavil) 50 mg tablet Take 1 tablet (50 mg) by mouth once daily at bedtime. Historical Provider, cholecalciferol (Vitamin D-3) 25 MCG (1000 UT) tablet Take 1 tablet (1,000 Units) by mouth once daily. Historical Provider, cyanocobalamin (Vitamin B-12) 1,000 mcg tablet Take 1 tablet (1,000 mcg) by mouth once daily. Historical Provider, dicyclomine (Bentyl) 10 mg capsule TAKE 1 CAPSULE (10 MG) BY MOUTH EVERY 8 (EIGHT) HOURS IF NEEDED (ABDOMINAL CRAMPING) Historical Provider, omeprazole (PriLOSEC) [address] capsule 2 capsules (40 mg) 2 times a day before meals. Historical Provider, ondansetron ODT (Zofran-ODT) 4 mg disintegrating tablet Dissolve 1 tablet (4 mg) in the mouth. 12/20/23 Historical Provider, MD DARDEN ROS: Constitutional: neg Neuro/Psych: neg Eyes: neg use of corrective lenses Ears: neg Nose: neg Mouth: neg Throat: neg Neck: neg Cardio: neg Respiratory: neg Endocrine: neg GI: abdominal pain nausea (intermittent) vomiting (intermittent) : neg Musculoskeletal: neg Hematologic: neg Skin: neg Physical Exam Vitals reviewed. Constitutional: Appearance: Normal appearance. HENT: Head: Normocephalic and atraumatic. Nose: Nose normal. Mouth/Throat: Mouth: Mucous membranes are moist. Pharynx: Oropharynx is clear. Eyes: Extraocular Movements: Extraocular movements intact. Conjunctiva/sclera: Conjunctivae normal. Pupils: Pupils are equal, round, and reactive to light. Cardiovascular: Rate and Rhythm: Normal rate and regular rhythm. Pulses: Normal pulses. Heart sounds: Normal heart sounds. Pulmonary: Effort: Pulmonary effort is normal. Breath sounds: Normal breath sounds. Musculoskeletal: General: Normal range of motion. Cervical back: Normal range of motion. Skin: General: Skin is warm and dry. Neurological: General: No focal deficit present. Mental Status: She is alert and oriented to person, place, and time. Psychiatric: Mood and Affect: Mood normal. Behavior: Behavior normal. PAT AIRWAY: Airway: Mallampati:: III TM distance:: >3 FB Neck ROM:: Full normal Visit Vitals BP 122/76 Pulse 70 Temp 36.2 C (97.2 F) Ht 1.702 m (5' 7 ) Wt 63 kg (139 lb) SpO2 99% BMI 21.77 kg/m OB Status Hysterectomy Smoking Status Never BSA 1.73 m DASI Risk Score Flowsheet Row Pre-Admission Testing from 01/16/2025 in [facility] Questionnaire Series Submission from 11/07/2024 in [facility] [place] with Generic Provider Xiomy Can you take care of yourself (eat, dress, bathe, or use toilet)? 2.75 filed at 01/16/2025 1022 2.75 filed at 11/07/2024 1642 Can you walk indoors, such as around your house? 1.75 filed at 01/16/2025 1022 1.75 filed at 11/07/2024 1642 Can you walk a block or two on level ground? 2.75 filed at 01/16/2025 1022 2.75 filed at 642 Can you climb a flight of stairs or walk up a hill? 5.5 filed at 01/16/2025 1022 5.5 filed at 11/07/2024 164 Can you run a short distance? 0 filed at 01/16/2025 1022 0 filed at 11/07/2024 1642 Can you do light work around the house like dusting or washing dishes? 2.7 filed at 01/16/2025 45881.7 filed at 11/07/20241641 Can you do moderate work around the house like vacuuming, sweeping floors or carrying groceries? 3.5 filed at 01/16/2025 1022 3.5 filed at 11/07/20241641 Can you do heavy work around the house like scrubbing floors or lifting and moving heavy furniture?0 filed at 01/16/2025 1022 0 filed at 11/07/20241641 Can you do yard work like raking leaves, weeding or pushing a mower? 4.5 filed at 01/16/2025 1022 0filed at 11/07/2024 164 Can you have sexual relations? 5.25 filed at 01/16/2025 1022 5.25 filed at 11/07/2024 164 Can you participate in moderate recreational activities like golf, bowling, dancing, doubles tennisor throwing a baseball or football? 0 filed at 01/16/2025 1022 0 filed at 11/07/2024 1642 Can you participate in strenous sports like swimming, singles tennis, football, basketball, or skiing? 0 filed at 01/16/2025 1022 0 filed at 11/07/2024 1642 DASI SCORE 28.7 filed at 01/16/2025 1022 24.2 filed at 11/07/2024 1642 METS Score (Will be calculated only when all the questions are answered) 6.3 filed at 01/16/2025 1022 5.7 filed at 11/07/2024 1642 Caprini DVT Assessment Flowsheet Row Pre-Admission Testing from 01/16/2025 in [facility] Surgical Factors Major surgery planned, including arthroscopic and laproscopic (1-2 hours) filed at01/16/2025 1041 Modified Frailty Index No data to display [id number] Stroke Risk Points N/A 0 to 9 Points: Last Change: N/A The [id number] risk score (Lip DAVID, et al. 2009. 2010 [employer]) quantifies the risk of stroke for a patient with atrial fibrillation. For patients without atrial fibrillation or under the age of 18 this score appears as N/A. Higher score values generally indicate higherrisk of stroke. This score is not applicable to this patient. Components are not calculated. Revised Cardiac Risk Index Flowsheet Row Pre-Admission Testing from 01/16/2025 in [facility] High-Risk Surgery (Intraperitoneal, Intrathoracic,Suprainguinal vascular) 1 filed at 01/16/2025 1041 History of ischemic heart disease (History of IA, History of positive exercuse test, Current chest paint considered due to myocardial ischemia, Use of nitrate therapy, ECG with pathological Q Waves) 0 filed at 01/16/2025 1041 History of congestive heart failure (pulmonary edemia, bilateral rales or S3 gallop, Paroxysmal nocturnal dyspnea, CXR showing pulmonary vascular redistribution) 0 filed at 01/16/2025 1041 History of cerebrovascular disease (Prior TIA or stroke) 0 filed at 01/16/2025 1041 Pre-operative insulin treatment 0 filed at 01/16/2025 1041 Pre-operative creatinine>2 mg/dl 0 filed at 01/16/2025 1041 Revised Cardiac Risk Calculator 1 filed at 01/16/2025 1041 Apfel Simplified Score Flowsheet Row Pre-Admission Testing from 01/16/2025 in [facility] Smoking status 1 filed at 01/16/2025 1041 History of motion sickness or PONV 0 filed at 01/16/2025 1041 Use of postoperative opioids 1 filed at 01/16/2025 1041 Gender - Female 1=Yes filed at 01/16/2025 1041 Apfel Simplified Score Calculator 3 filed at 01/16/2025 1041 Risk Analysis Index Results This Encounter No data found in the last 10 encounters. Stop Bang Score Flowsheet Row Pre-Admission Testing from 01/16/2025 in [facility] Questionnaire Series Submission from 11/07/2024 in [facility] [place] OR with Generic Provider [place] Do you snore loudly? 0 filed at 01/16/2025 1024 0 filed at 11/07/2024 1642 Do you often feel tired or fatigued after your sleep? 1 filed at 01/16/2025 1024 0 filed at 11/07/2024 1642 Has anyone ever observed you stop breathing in your sleep? 0 filed at 01/16/2025 1024 0 filed at 11/07/2024 1642 Do you have or are you being treated for high blood pressure? 0 filed at 01/16/2025 1024 0 filed at11/07/2024 1642 Recent BMI (Calculated) 21.8 filed at 01/16/2025 1024 21.6 filed at 11/07/2024 1642 Is BMI greater than 35 kg/m2? 0=No filed at 01/16/2025 1024 0=No filed at 11/07/2024 1642 Age older than 50 years old? 0=No filed at 01/16/2025 1024 0=No filed at 11/07/2024 1642 Is your neck circumference greater than 17 inches (Male) or 16 inches (Female)? 0 filed at 01/16/2025 1024 -- Gender - Male 0=No filed at 01/16/2025 1024 0=No filed at 11/07/2024 1642 STOP-BANG Total Score 1 filed at 01/16/2025 1024 -- Prodigy: High Risk Total Score: 0 ARISCAT Score for Postoperative Pulmonary Complications Flowsheet Row Pre-Admission Testing from 01/16/2025 in [facility] Age Calculated Score 0 filed at 01/16/2025 1041 Preoperative SpO2 0 filed at 01/16/2025 1041 Respiratory infection in the last month Either upper or lower (i.e., URI, bronchitis, pneumonia), with fever and antibiotic treatment 0 filed at 01/16/2025 1041 Preoperative anemia (Hgb less than 10 g/dl) 0 filed at 01/16/2025 1041 Surgical incision 15 filed at 01/16/2025 1041 Duration of surgery 0 filed at 01/16/2025 1041 Emergency Procedure 0 filed at 01/16/2025 1041 ARISCAT Total Score 15 filed at 01/16/2025 1041 Shanae Perioperative Risk for Myocardial Infarction or Cardiac Arrest (JOSEPH) Flowsheet Row Pre-Admission Testing from 01/16/2025 in [facility] Calculated Age Score 0.92 filed at 01/16/2025 1037 Functional Status 0 filed at 01/16/2025 1037 ASA Class -5.17 filed at 01/16/2025 1037 Creatinine 0 filed at 01/16/2025 1037 Type of Procedure 1.13 filed at 01/16/2025 1037 JOSEPH Total Score -8.37 filed at 01/16/2025 1037 JOSEPH % 0.02 filed at 01/16/2025 1037 Patient Providers Laboratory Results Recent Results (from the past 4 weeks) CBC Collection Time: 01/16/25 10:50 AM Result Value Ref Range WBC 9.4 4.4 - 11.3 x10*3/uL nRBC 0.0 0.0 - 0.0 /100 WBCs RBC 4.07 4.00 - 5.20 x10*6/uL Hemoglobin 12.7 12.0 - 16.0 g/dL Hematocrit 38.8 36.0 - 46.0 % MCV 95 80 - 100 fL MCH 31.2 26.0 - 34.0 pg MCHC 32.7 32.0 - 36.0 g/dL RDW 13.1 11.5 - 14.5 % Platelets 188 150 - 450 x10*3/uL Basic Metabolic Panel Collection Time: 01/16/25 10:50 AM Result Value Ref Range Glucose 73 (L) 74 - 99 mg/dL Sodium 139 136 - 145 mmol/L Potassium 4.2 3.5 - 5.3 mmol/L Chloride 103 98 - 107 mmol/L Bicarbonate 29 21 - 32 mmol/L Anion Gap 11 10 - 20 mmol/L Urea Nitrogen 25 (H) 6 - 23 mg/dL Creatinine 0.73 0.50 - 1.05 mg/dL eGFR >90 >60 mL/min/1.73m*2 Calcium 9.4 8.6 - 10.6 mg/dL Testing/Diagnostics Nurse Plan of Action Assessment and Plan Anesthesia/Airway The patient denies problems with anesthesia in the past such as PONV, prolonged sedation, awareness, dental damage, aspiration, cardiac arrest, difficult intubation, or unexpected hospital admissions. No documented or reported history of airway difficulty. Neuro The patient has no neurological diagnoses or significant findings on chart review, clinical presentation, and evaluation. No grossly apparent neurological perioperative risk. The patient is at increased risk for perioperative stroke secondary to female gender, general anesthesia. Handouts for preoperative brain exercises given to patient. HEENT No HEENT diagnosis or significant findings on chart review or clinical presentation and evaluation. Cardiovascular No diagnoses or significant findings on chart review or clinical presentation and evaluation. METS: greater than 4 METS. RCRI: The patient meets 1 RCRI criteria and therefore has a 6% risk of major adverse cardiac complications. JOSEPH: 0.02% risk for 30-day postoperative MACE EKG: ECHO: Stress ECHO: Stress Test: Calcium Score: Heart Cath: Carotid Duplex: Pulmonary No significant findings on chart review or clinical presentation and evaluation. Stop Bang score is 1 placing patient at Low risk for SANGITA ARISCAT: <26 points, 1.6% risk of in-hospital postoperative pulmonary complication PRODIGY: Low risk for opioid-induced respiratory depression Endocrine No diagnoses or significant findings on chart review or clinical presentation and evaluation. Gastrointestinal The patient has GERD managed on medication (continue) no acute GI complaints. Eat-10 score 0 Apfel 3 Genitourinary No diagnoses or significant findings on chart review or clinical presentation and evaluation. Renal No significant findings on chart review or clinical presentation and evaluation. The patient has specific risk factors associated with increased risk of perioperative renal complications related to peritoneal surgery Preventative measures include preoperative hydration. Hematology/Oncology No diagnoses or significant findings on chart review or clinical presentation and evaluation. Caprini Score 2, patient at Low risk for perioperative DVT. Patient provided VTE education/handout. T&S not obtained. Low likelihood for perioperative transfusion of blood or blood products. Musculoskeletal No diagnoses or significant findings on chart review or clinical presentation and evaluation. Infectious Disease No diagnoses or significant findings on chart review or clinical presentation and evaluation. MRSA screening obtained. Prescriptions and instructions given for Hibiclens and Peridex. Labs ordered and/or reviewed CBC and BMP No further work up indicated -Preoperative medication instructions were provided and reviewed with the patient. Any additional testing or evaluation was explained to the patient. NPO Instructions were discussed, and the patient's questions were answered prior to conclusion of this encounter. Patient verbalized understanding ofpreoperative instructions. After Visit Summary given. All labs/imaging included in this documentation were reviewed/considered in medical decision makingfor perioperative planning, including labs ordered day of CPM appointment. [1] Past Medical History: Diagnosis Date Anemia Autoimmune disorder (Multi) 2023 Found markers but no diagnosis. Rhumatologist left peactice COVID-19 2021 GERD (gastroesophageal reflux disease) Hernia, internal [2] Past Surgical History: Procedure Laterality Date ESOPHAGOGASTRODUODENOSCOPY HYSTERECTOMY [3] Family History Problem Relation Name Age of Onset Heart attack Father Sky Heart attack Mother Lorraine Irritable bowel syndrome Sister Sanam [4] Allergies Allergen Reactions Penicillins Anaphylaxis, Hives, Rash and Unknown Opioids - Morphine Analogues Nausea/vomiting Oxycodone-Acetaminophen GI intolerance Nausea, vomiting, and dizziness Pilocarpine Nausea[facility] Phone: 1(808) 224-757609-23-2025 Attending History and physical note* Sunitha Thomas MD - 01/29/2025 6:02 AM EDT H&P reviewed. The patient was examined and there are no changes to the H&P. Cosigned by Hossein Potter MD at 01/29/2025 11:17 AM EDT Source Note - Dominga Mak APRN-AUTOMATION ENGINEERING MANAGER - 01/16/2025 10:00 AM EDT Images from the original note were not included. CPM/PAT Evaluation Name: Nikki Martins (Nikki Martins) /Age: 711/22/1980/44 y.o. Visit Type: In-Person Chief Complaint: perioperative evaluation Referring physician: Dr. Hossein WEEKS The patient is a 44 year old female with ymptoms of median arcuate ligament syndrome including postprandial abdominal pain and discomfort with certain postures and worsening with activity. She is s/p celiac plexus block with minimal relief. She is referred today for perioperative evaluation in anticipation of laparoscopic median arcuate ligament release scheduled for 01/29/[address] Potter. Medical History[1] Surgical History[2] Patient has no history on file for sexual activity. Family History[3] Allergies[4] Prior to Admission medications Medication Sig Start Date End Date Taking? Authorizing Provider amitriptyline (Elavil) 50 mg tablet Take 1 tablet (50 mg) by mouth once daily at bedtime. Historical Provider, cholecalciferol (Vitamin D-3) 25 MCG (1000 UT) tablet Take 1 tablet (1,000 Units) by mouth once daily. Historical Provider, cyanocobalamin (Vitamin B-12) 1,000 mcg tablet Take 1 tablet (1,000 mcg) by mouth once daily. Historical Provider, dicyclomine (Bentyl) 10 mg capsule TAKE 1 CAPSULE (10 MG) BY MOUTH EVERY 8 (EIGHT) HOURS IF NEEDED (ABDOMINAL CRAMPING) Historical Provider, omeprazole (PriLOSEC) [address] capsule 2 capsules (40 mg) 2 times a day before meals. Historical Provider, ondansetron ODT (Zofran-ODT) 4 mg disintegrating tablet Dissolve 1 tablet (4 mg) in the mouth. 12/20/23 Historical Provider, MD DARDEN ROS: Constitutional: neg Neuro/Psych: neg Eyes: neg use of corrective lenses Ears: neg Nose: neg Mouth: neg Throat: neg Neck: neg Cardio: neg Respiratory: neg Endocrine: neg GI: abdominal pain nausea (intermittent) vomiting (intermittent) : neg Musculoskeletal: neg Hematologic: neg Skin: neg Physical Exam Vitals reviewed. Constitutional: Appearance: Normal appearance. HENT: Head: Normocephalic and atraumatic. Nose: Nose normal. Mouth/Throat: Mouth: Mucous membranes are moist. Pharynx: Oropharynx is clear. Eyes: Extraocular Movements: Extraocular movements intact. Conjunctiva/sclera: Conjunctivae normal. Pupils: Pupils are equal, round, and reactive to light. Cardiovascular: Rate and Rhythm: Normal rate and regular rhythm. Pulses: Normal pulses. Heart sounds: Normal heart sounds. Pulmonary: Effort: Pulmonary effort is normal. Breath sounds: Normal breath sounds. Musculoskeletal: General: Normal range of motion. Cervical back: Normal range of motion. Skin: General: Skin is warm and dry. Neurological: General: No focal deficit present. Mental Status: She is alert and oriented to person, place, and time. Psychiatric: Mood and Affect: Mood normal. Behavior: Behavior normal. PAT AIRWAY: Airway: Mallampati:: III TM distance:: >3 FB Neck ROM:: Full normal Visit Vitals BP 122/76 Pulse 70 Temp 36.2 C (97.2 F) Ht 1.702 m (5' 7 ) Wt 63 kg (139 lb) SpO2 99% BMI 21.77 kg/m OB Status Hysterectomy Smoking Status Never BSA 1.73 m DASI Risk Score Flowsheet Row Pre-Admission Testing from 01/16/2025 in [facility] Questionnaire Series Submission from 11/07/2024 in [facility] with Generic Provider Xiomy Can you take care of yourself (eat, dress, bathe, or use toilet)? 2.75 filed at 01/16/2025 1022 2.75 filed at 11/07/2024 1642 Can you walk indoors, such as around your house? 1.75 filed at 01/16/2025 1022 1.75 filed at 11/07/2024 1642 Can you walk a block or two on level ground? 2.75 filed at 01/16/2025 1022 2.75 filed at 642 Can you climb a flight of stairs or walk up a hill? 5.5 filed at 01/16/2025 1022 5.5 filed at 11/07/2024 1642 Can you run a short distance? 0 filed at 01/16/2025 1022 0 filed at 11/07/2024 1642 Can you do light work around the house like dusting or washing dishes? 2.7 filed at 01/16/2025 46518.7 filed at 11/07/2024 1642 Can you do moderate work around the house like vacuuming, sweeping floors or carrying groceries? 3.5 filed at 01/16/2025 1022 3.5 filed at 11/07/2024 1642 Can you do heavy work around the house like scrubbing floors or lifting and moving heavy furniture?0 filed at 01/16/2025 1022 0 filed at 11/07/2024 1642 Can you do yard work like raking leaves, weeding or pushing a mower? 4.5 filed at 01/16/2025 1022 0filed at 11/07/2024 1642 Can you have sexual relations? 5.25 filed at 01/16/2025 1022 5.25 filed at 11/07/2024 1642 Can you participate in moderate recreational activities like golf, bowling, dancing, doubles tennisor throwing a baseball or football? 0 filed at 01/16/2025 1022 0 filed at 11/07/2024 1642 Can you participate in strenous sports like swimming, singles tennis, football, basketball, or skiing? 0 filed at 01/16/2025 1022 0 filed at 11/07/2024 1642 DASI SCORE 28.7 filed at 01/16/2025 1022 24.2 filed at 11/07/2024 1642 METS Score (Will be calculated only when all the questions are answered) 6.3 filed at 01/16/2025 1022 5.7 filed at 11/07/2024 1642 Capfermini DVT Assessment Flowsheet Row Pre-Admission Testing from 01/16/2025 in [facility] Surgical Factors Major surgery planned, including arthroscopic and laproscopic (1-2 hours) filed at01/16/2025 1041 Modified Frailty Index No data to display [id number] Stroke Risk Points N/A 0 to 9 Points: Last Change: N/A The [id number] risk score (Stanley HERNANDEZ et al. 2009. 2010 [employer]) quantifies the risk of stroke for a patient with atrial fibrillation. For patients without atrial fibrillation or under the age of 18 this score appears as N/A. Higher score values generally indicate higherrisk of stroke. This score is not applicable to this patient. Components are not calculated. Revised Cardiac Risk Index Flowsheet Row Pre-Admission Testing from 01/16/2025 in [facility] High-Risk Surgery (Intraperitoneal, Intrathoracic,Suprainguinal vascular) 1 filed at 01/16/2025 1041 History of ischemic heart disease (History of IA, History of positive exercuse test, Current chest paint considered due to myocardial ischemia, Use of nitrate therapy, ECG with pathological Q Waves) 0 filed at 01/16/2025 1041 History of congestive heart failure (pulmonary edemia, bilateral rales or S3 gallop, Paroxysmal nocturnal dyspnea, CXR showing pulmonary vascular redistribution) 0 filed at 01/16/2025 1041 History of cerebrovascular disease (Prior TIA or stroke) 0 filed at 01/16/2025 1041 Pre-operative insulin treatment 0 filed at 01/16/2025 1041 Pre-operative creatinine>2 mg/dl 0 filed at 01/16/2025 1041 Revised Cardiac Risk Calculator 1 filed at 01/16/2025 1041 Apfel Simplified Score Flowsheet Row Pre-Admission Testing from 01/16/2025 in [facility] Smoking status 1 filed at 01/16/2025 1041 History of motion sickness or PONV 0 filed at 01/16/2025 1041 Use of postoperative opioids 1 filed at 01/16/2025 1041 Gender - Female 1=Yes filed at 01/16/2025 1041 Apfel Simplified Score Calculator 3 filed at 01/16/2025 1041 Risk Analysis Index Results This Encounter No data found in the last 10 encounters. Stop Bang Score Flowsheet Row Pre-Admission Testing from 01/16/2025 in [facility] Questionnaire Series Submission from 11/07/2024 in [facility] [place] with Generic Provider Xiomy Do you snore loudly? 0 filed at 01/16/2025 1024 0 filed at 11/07/2024 1642 Do you often feel tired or fatigued after your sleep? 1 filed at 01/16/2025 1024 0 filed at 11/07/2024 1642 Has anyone ever observed you stop breathing in your sleep? 0 filed at 01/16/2025 1024 0 filed at 11/07/2024 1642 Do you have or are you being treated for high blood pressure? 0 filed at 01/16/2025 1024 0 filed at11/07/2024 1642 Recent BMI (Calculated) 21.8 filed at 01/16/2025 1024 21.6 filed at 11/07/2024 1642 Is BMI greater than 35 kg/m2? 0=No filed at 01/16/2025 1024 0=No filed at 11/07/2024 1642 Age older than 50 years old? 0=No filed at 01/16/2025 1024 0=No filed at 11/07/2024 1642 Is your neck circumference greater than 17 inches (Male) or 16 inches (Female)? 0 filed at 01/16/2025 1024 -- Gender - Male 0=No filed at 01/16/2025 1024 0=No filed at 11/07/2024 1642 STOP-BANG Total Score 1 filed at 01/16/2025 1024 -- Prodigy: High Risk Total Score: 0 ARISCAT Score for Postoperative Pulmonary Complications Flowsheet Row Pre-Admission Testing from 01/16/2025 in [facility] Age Calculated Score 0 filed at 01/16/2025 1041 Preoperative SpO2 0 filed at 01/16/2025 1041 Respiratory infection in the last month Either upper or lower (i.e., URI, bronchitis, pneumonia), with fever and antibiotic treatment 0 filed at 01/16/2025 1041 Preoperative anemia (Hgb less than 10 g/dl) 0 filed at 01/16/2025 1041 Surgical incision 15 filed at 01/16/2025 1041 Duration of surgery 0 filed at 01/16/2025 1041 Emergency Procedure 0 filed at 01/16/2025 1041 ARISCAT Total Score 15 filed at 01/16/2025 1041 Shanae Perioperative Risk for Myocardial Infarction or Cardiac Arrest (JOSEPH) Flowsheet Row Pre-Admission Testing from 01/16/2025 in [facility] Calculated Age Score 0.92 filed at 01/16/2025 1037 Functional Status 0 filed at 01/16/2025 1037 ASA Class -5.17 filed at 01/16/2025 1037 Creatinine 0 filed at 01/16/2025 1037 Type of Procedure 1.13 filed at 01/16/2025 1037 JOSEPH Total Score -8.37 filed at 01/16/2025 1037 JOSEPH % 0.02 filed at 01/16/2025 1037 Patient Providers Laboratory Results Recent Results (from the past 4 weeks) CBC Collection Time: 01/16/25 10:50 AM Result Value Ref Range WBC 9.4 4.4 - 11.3 x10*3/uL nRBC 0.0 0.0 - 0.0 /100 WBCs RBC 4.07 4.00 - 5.20 x10*6/uL Hemoglobin 12.7 12.0 - 16.0 g/dL Hematocrit 38.8 36.0 - 46.0 % MCV 95 80 - 100 fL MCH 31.2 26.0 - 34.0 pg MCHC 32.7 32.0 - 36.0 g/dL RDW 13.1 11.5 - 14.5 % Platelets 188 150 - 450 x10*3/uL Basic Metabolic Panel Collection Time: 01/16/25 10:50 AM Result Value Ref Range Glucose 73 (L) 74 - 99 mg/dL Sodium 139 136 - 145 mmol/L Potassium 4.2 3.5 - 5.3 mmol/L Chloride 103 98 - 107 mmol/L Bicarbonate 29 21 - 32 mmol/L Anion Gap 11 10 - 20 mmol/L Urea Nitrogen 25 (H) 6 - 23 mg/dL Creatinine 0.73 0.50 - 1.05 mg/dL eGFR >90 >60 mL/min/1.73m*2 Calcium 9.4 8.6 - 10.6 mg/dL Testing/Diagnostics Nurse Plan of Action Assessment and Plan Anesthesia/Airway The patient denies problems with anesthesia in the past such as PONV, prolonged sedation, awareness, dental damage, aspiration, cardiac arrest, difficult intubation, or unexpected hospital admissions. No documented or reported history of airway difficulty. Neuro The patient has no neurological diagnoses or significant findings on chart review, clinical presentation, and evaluation. No grossly apparent neurological perioperative risk. The patient is at increased risk for perioperative stroke secondary to female gender, general anesthesia. Handouts for preoperative brain exercises given to patient. HEENT No HEENT diagnosis or significant findings on chart review or clinical presentation and evaluation. Cardiovascular No diagnoses or significant findings on chart review or clinical presentation and evaluation. METS: greater than 4 METS. RCRI: The patient meets 1 RCRI criteria and therefore has a 6% risk of major adverse cardiac complications. JOSEPH: 0.02% risk for 30-day postoperative MACE EKG: ECHO: Stress ECHO: Stress Test: Calcium Score: Heart Cath: Carotid Duplex: Pulmonary No significant findings on chart review or clinical presentation and evaluation. Stop Bang score is 1 placing patient at Low risk for SANGITA ARISCAT: <26 points, 1.6% risk of in-hospital postoperative pulmonary complication PRODIGY: Low risk for opioid-induced respiratory depression Endocrine No diagnoses or significant findings on chart review or clinical presentation and evaluation. Gastrointestinal The patient has GERD managed on medication (continue) no acute GI complaints. Eat-10 score 0 Apfel 3 Genitourinary No diagnoses or significant findings on chart review or clinical presentation and evaluation. Renal No significant findings on chart review or clinical presentation and evaluation. The patient has specific risk factors associated with increased risk of perioperative renal complications related to peritoneal surgery Preventative measures include preoperative hydration. Hematology/Oncology No diagnoses or significant findings on chart review or clinical presentation and evaluation. Caprini Score 2, patient at Low risk for perioperative DVT. Patient provided VTE education/handout. T&S not obtained. Low likelihood for perioperative transfusion of blood or blood products. Musculoskeletal No diagnoses or significant findings on chart review or clinical presentation and evaluation. Infectious Disease No diagnoses or significant findings on chart review or clinical presentation and evaluation. MRSA screening obtained. Prescriptions and instructions given for Hibiclens and Peridex. Labs ordered and/or reviewed CBC and BMP No further work up indicated -Preoperative medication instructions were provided and reviewed with the patient. Any additional testing or evaluation was explained to the patient. NPO Instructions were discussed, and the patient's questions were answered prior to conclusion of this encounter. Patient verbalized understanding ofpreoperative instructions. After Visit Summary given. All labs/imaging included in this documentation were reviewed/considered in medical decision makingfor perioperative planning, including labs ordered day of CPM appointment. [1] Past Medical History: Diagnosis Date Anemia Autoimmune disorder (Multi) 2023 Found markers but no diagnosis. Rhumatologist left peactice COVID-2021 GERD (gastroesophageal reflux disease) Hernia, internal [2] Past Surgical History: Procedure Laterality Date ESOPHAGOGASTRODUODENOSCOPY HYSTERECTOMY [3] Family History Problem Relation Name Age of Onset Heart attack Father Sky Heart attack Mother Lorraine Irritable bowel syndrome Sister Sanam [4] Allergies Allergen Reactions Penicillins Anaphylaxis, Hives, Rash and Unknown Opioids - Morphine Analogues Nausea/vomiting Oxycodone-Acetaminophen GI intolerance Nausea, vomiting, and dizziness Pilocarpine Nausea/vomiting [facility] Work Phone: 1(996) 655-420909-10-2025 Evaluation note* Diagnosis Onset Date Resolution Status Admit Date Encounter for screening mammogram for ma lignant neoplasm of breast acuteSept2024 1:36pmWellness examinationacuteSept2024 1:36pmEncounter for screening mammogram for malignant neoplasm of breastacute March 18, 2025 9:50amWell woman exam with routine gynecological examacute March 18, 2025 9:50am [facility] Work Phone: 1(519) 611-819008-11-2025 NoteED Patient Education Note Gastroenterology Colitis Colitis is a condition in which the colon is inflamed. It can cause diarrhea, blood in the stool, and abdominal pain. Colitis can last a short time (be acute), or it may last a long time (become chronic). What are the causes? This condition may be caused by: ??? Infections from viruses or bacteria. ??? A reaction to medicine. ??? Certain autoimmune diseases, such as Crohn's disease or ulcerative colitis. ??? Radiation treatment. ??? Decreased blood flow to the bowel (ischemia). What are the signs or symptoms? Symptoms of this condition include: ??? Diarrhea, blood in the stool, or black, tarry stool. ??? Pain in the joints or abdominal pain. ??? Fever or fatigue. ??? Vomiting. ??? Weight loss. ??? Bloating. ??? Having fewer bowel movements than usual. ??? A strong and sudden urge to have a bowel movement. ??? Feeling like the bowel is not empty after a bowel movement. How is this diagnosed? This condition may be diagnosed based on a stool test and a blood test. You may also have other tests, such as: ??? X-rays. ??? CT scan. ??? Colonoscopy. ??? Endoscopy. ??? Biopsy. How is this treated? Treatment for this condition depends on the cause. This condition may be treated with: ??? Steps to rest the bowel, such as not eating or drinking for a period of time. ??? Fluids that are given through an IV. ??? Medicine for pain and diarrhea. ??? Antibiotic medicines. ??? Cortisone medicines. ??? Surgery. Follow these instructions at home: Eating and drinking ??? Follow instructions from your health care provider about eating or drinking restrictions. ??? Drink enough fluid to keep your urine pale yellow. ??? Work with a dietitian to determine whether certain foods cause your condition to flare up. ??? Avoid foods or drinks that cause flare-ups. ??? Eat a well-balanced diet. General instructions ??? If you were prescribed an antibiotic medicine, take it as told by your health care provider. Donot stop taking the antibiotic even if you start to feel better. ??? Take yjon-fad-zsonpig and prescription medicines only as told by your health care provider. ??? Keep all follow-up visits. This is important. Contact a health care provider if: ??? Your symptoms do not go away. ??? You develop new symptoms. Get help right away if: ??? You have a fever that does not go away with treatment. ??? You develop chills. ??? You have extreme weakness, fainting, or dehydration. ??? You vomit repeatedly. ??? You develop severe pain in your abdomen. ??? You pass bloody or tarry stool. Summary ??? Colitis is a condition in which the colon is inflamed. Colitis can last a short time (be acute), or it may last a long time (become chronic). ??? Treatment for this condition depends on the cause and may include resting the bowel, taking medicines, or having surgery. ??? If you were prescribed an antibiotic medicine, take it as told by your health care provider. Donot stop taking the antibiotic even if you start to feel better. ??? Get help right away if you develop severe pain in your abdomen. ??? Keep all follow-up visits. This is important. This information is not intended to replace advice given to you by your health care provider. Make sure you discuss any questions you have with your health care provider. Document Revised: 12/30/2020 Document Reviewed: 12/30/2020 [employer] Patient Education ? 2023 [employer] Abdominal Pain, Adult Pain in the abdomen (abdominal pain) can be caused by many things. In most cases, it gets better with no treatment or by being treated at home. But in some cases, it can be serious. Your health care provider will ask questions about your medical history and do a physical exam to try to figure out what is causing your pain. Follow these instructions at home: Medicines ??? Take ktam-lcl-teqdjxg and prescription medicines only as told by your provider. ??? Do not take medicines that help you poop (laxatives) unless told by your provider. General instructions ??? Watch your condition for any changes. ??? Drink enough fluid to keep your pee (urine) pale yellow. Contact a health care provider if: ??? Your pain changes, gets worse, or lasts longer than expected. ??? You have severe cramping or bloating in your abdomen, or you vomit. ??? Your pain gets worse with meals, after eating, or with certain foods. ??? You are constipated or have diarrhea for more than 2?3 days. ??? You are not hungry, or you lose weight without trying. ??? You have signs of dehydration. These may include: ? Dark pee, very little pee, or no pee. ? Cracked lips or dry mouth. ? Sleepiness or weakness. ??? You have pain when you pee (urinate) or poop. ??? Your abdominal pain wakes you up at night. ??? You have blood (more content not included)...[facility] 10-23-2024 History of Present illness Narrative* Hossein Potter MD - 10/23/2024 10:15 AM EDT Primary Care Physician: Cyndi Epperson, TUFTING MACHINE OPERATOR-AUTOMATION ENGINEERING MANAGER Primary Medical Parasitologist: Date of Visit: 10/23/2024 10:15 AM EDT Location of visit: [facility] Type of Visit: Follow up Chief Complaint Patient presents with Follow-up HPI / Summary: Nikki Martins is a 43 y.o. female with who returns for routine follow up Patient comes for follow-up after her celiac plexus block and general surgery consultation. She hasall the symptoms of median arcuate ligament syndrome including postprandial abdominal pain and discomfort with certain postures and worsening with activity. She has experienced weight loss. She did respond to her block was able to eat a normal restaurant meal afterwards and wishes to attain this. I went over the risk and rationale for laparoscopic median arcuate ligament release. The success rate is about 70 to 80%. No pain operation has 100% success rate. The other more severe risks are unlikely but again possible and these were discussed as well. She wishes to proceed with laparoscopic median arcuate ligament release. I will contact Dr. Cruz coordinate scheduling this at [facility]. From H&P 05/29/2024 Nikki Martins is a 43 y.o. year [...] I will see her after these consultations. 12 system review is negative except as noted above Medical History: Medical History[1] Social History: Tobacco Use: Low Risk (10/23/2024) Patient History Smoking Tobacco Use: Never Smokeless Tobacco Use: Never Passive Exposure: Never MEDICATIONS: Current Outpatient Medications Medication Instructions amitriptyline (ELAVIL) 50 mg, Nightly cholecalciferol (VITAMIN D-3) 1,000 Units, Daily RT cyanocobalamin (VITAMIN B-12) 1,000 mcg, Daily RT dicyclomine (Bentyl) 10 mg capsule TAKE 1 CAPSULE (10 MG) BY MOUTH EVERY 8 (EIGHT) HOURS IF NEEDED (ABDOMINAL CRAMPING) omeprazole (PRILOSEC) 20 mg, 2 times daily before meals ondansetron ODT (ZOFRAN-ODT) 4 mg IMAGING REVIEWED: Echocardiogram: No results found for this or any previous visit from the past 1824. Stress Testing: No results found for this or any previous visit from the past 1824 days. Cardiac Catheterization: No results found for this or any previous visit from the past 1824. Cardiac Scoring: No results found for this or any previous visit from the past 1824 days. AAA : No results found for this or any previous visit from the past 1824 days. OTHER: No results found for this or any previous visit from the past 1824. LABS: CBC with Differential: No results found [...] TROPHS BNP: No results found for: BNP Lipid Panel: No results found for: HDL , CHHDL , VLDL , TRIG , NHDL Lab work and imaging results independently reviewed by me Vascular Physical Exam Constitutional: General: She is awake. Appearance: She is well-developed. HENT: Head: Normocephalic. Eyes: Pupils: Pupils are equal, round, and reactive to light. Cardiovascular: Rate and Rhythm: Normal rate. Pulmonary: Effort: Pulmonary effort is normal. Abdominal: Tenderness: There is abdominal tenderness. Musculoskeletal: General: Normal range of motion. Neck: Normal range of motion. Skin: General: Skin is warm and dry. Neurological: General: No focal deficit present. Mental Status: She is alert. Psychiatric: Mood and Affect: Mood normal. Diagnoses and all orders for this visit: Median arcuate ligament syndrome - Case Request Operating Room: RELEASE, LIGAMENT, MEDIAN ARCUATE, LAPAROSCOPIC Hossein Potter MD Orders: No orders of the defined types were placed in this encounter. Followup Appts: Future Appointments Date Time Provider Department Center 11/12/2024 1:45 PM Vee Cruz MD MPH [id number] [1] No past medical history on file. [facility] Phone: 1(853) 516-402405-09-2025 History and physical note* Bisi Pena MD - 09/14/2024 9:20 AM EDT Procedure H&P Patient Profile-Procedures Name Nikki Martins Date of 1980 Address [id number] [place] [address] Primary Secondary Phone Number [facility] Cyndi Epperson Procedure(s): Procedures: EGD Primary contact name and number Extended Emergency Contact Information Primary Emergency Contact: AD AVILA Mobile Relation: Sister Preferred language: Swiss Bill Poster Installer needed? No General Health Weight Vitals: 09/14/24 0813 Weight: 62.1 kg (136 lb 14.5 oz) BMI Body mass index is 21.44 kg/m . Allergies RX Allergies[1] Past Medical History Medical History[2] Provider assessment Diagnosis: GERD Medication Reviewed - yes Prior to Admission medications Medication Sig Start Date End Date Taking? Authorizing Provider amitriptyline (Elavil) 50 mg tablet Take 1 tablet (50 mg) by mouth once daily at bedtime. Yes Historical Provider, cholecalciferol (Vitamin D-3) 25 MCG (1000 UT) tablet Take 1 tablet (1,000 Units) by mouth once daily. Yes Historical Provider, cyanocobalamin (Vitamin B-12) 1,000 mcg tablet Take 1 tablet (1,000 mcg) by mouth once daily. Yes Historical Provider, dicyclomine (Bentyl) 10 mg capsule TAKE 1 CAPSULE (10 MG) BY MOUTH EVERY 8 (EIGHT) HOURS IF NEEDED (ABDOMINAL CRAMPING) Yes Historical Provider, omeprazole (PriLOSEC) [address] capsule 1 capsule (20 mg) 2 times a day before meals. Patient taking differently: 2 capsules (40 mg) once daily. Yes Historical Provider, ondansetron ODT (Zofran-ODT) 4 mg disintegrating tablet Dissolve 1 tablet (4 mg) in the mouth. 12/20/23 Yes Historical Provider, pregabalin (Lyrica) 50 mg capsule Take 1 capsule nightly for 1 week then take 1 capsule twice a daythereafter Patient not taking: No sig reported 08/13/24 09/14/24 Brissa Rain MD Physical Exam Vitals: 09/14/24 0813 BP: 159/83 Pulse: 75 Resp: 16 Temp: 36.3 C (97.3 F) SpO2: 98% General: A&Ox3, NAD. HEENT: AT/NC. CV: RRR. No murmur. Resp: CTA bilaterally. No wheezing, rhonchi or rales. GI: Soft, NT/ND. BSx4. Extrem: No edema. Pulses intact. Neuro: No focal deficits. Psych: Normal mood and affect. Procedure Plan - pre-procedural (re)assesment completed by physician: discharge/transfer patient when discharge criteria met Bisi Pena MD 09/14/2024 9:59 AM [1] Allergies Allergen Reactions Penicillins Anaphylaxis, Hives, Rash and Unknown Opioids - Morphine Analogues Nausea/vomiting Oxycodone-Acetaminophen GI intolerance Nausea, vomiting, and dizziness Pilocarpine Nausea/vomiting [2] History reviewed. No pertinent past medical history. [facility] Work Phone: 1(710) 990-204405-09-2025 History and physical note* Bisi Pena MD - 09/14/2024 9:20 AM EDT Procedure H&P Patient Profile-Procedures Name Nikki Martins Date of 1980 Address [address] [facility] [id number] [place] [id number] Primary Secondary Phone Number [facility] Cyndi Epperson Procedure(s): Procedures: EGD Primary contact name and number Extended Emergency Contact Information Primary Emergency Contact: AD AVILA Mobile Relation: Sister Preferred language: Swiss Bill Poster Installer needed? No General Health Weight Vitals: 09/14/24 0813 Weight: 62.1 kg (136 lb 14.5 oz) BMI Body mass index is 21.44 kg/m . Allergies RX Allergies[1] Past Medical History Medical History[2] Provider assessment Diagnosis: GERD Medication Reviewed - yes Prior to Admission medications Medication Sig Start Date End Date Taking? Authorizing Provider amitriptyline (Elavil) 50 mg tablet Take 1 tablet (50 mg) by mouth once daily at bedtime. Yes Historical Provider, cholecalciferol (Vitamin D-3) 25 MCG (1000 UT) tablet Take 1 tablet (1,000 Units) by mouth once daily. Yes Historical Provider, cyanocobalamin (Vitamin B-12) 1,000 mcg tablet Take 1 tablet (1,000 mcg) by mouth once daily. Yes Historical Provider, dicyclomine (Bentyl) 10 mg capsule TAKE 1 CAPSULE (10 MG) BY MOUTH EVERY 8 (EIGHT) HOURS IF NEEDED (ABDOMINAL CRAMPING) Yes Historical Provider, omeprazole (PriLOSEC) [address] capsule 1 capsule (20 mg) 2 times a day before meals. Patient taking differently: 2 capsules (40 mg) once daily. Yes Historical Provider, ondansetron ODT (Zofran-ODT) 4 mg disintegrating tablet Dissolve 1 tablet (4 mg) in the mouth. 12/20/23 Yes Historical Provider, pregabalin (Lyrica) 50 mg capsule Take 1 capsule nightly for 1 week then take 1 capsule twice a daythereafter Patient not taking: No sig reported 08/13/24 09/14/24 Brissa Rain MD Physical Exam Vitals: 09/14/24 0813 BP: 159/83 Pulse: 75 Resp: 16 Temp: 36.3 C (97.3 F) SpO2: 98% General: A&Ox3, NAD. HEENT: AT/NC. CV: RRR. No murmur. Resp: CTA bilaterally. No wheezing, rhonchi or rales. GI: Soft, NT/ND. BSx4. Extrem: No edema. Pulses intact. Neuro: No focal deficits. Psych: Normal mood and affect. Procedure Plan - pre-procedural (re)assesment completed by physician: discharge/transfer patient when discharge criteria met Bisi Pena MD 09/14/2024 9:59 AM [1] Allergies Allergen Reactions Penicillins Anaphylaxis, Hives, Rash and Unknown Opioids - Morphine Analogues Nausea/vomiting Oxycodone-Acetaminophen GI intolerance Nausea, vomiting, and dizziness Pilocarpine Nausea/vomiting [2] History reviewed. No pertinent past medical history. [facility] Phone: 1(586) 349-156205-09-2025 History and physical note* Bisi Pena MD - 09/14/2024 9:20 AM EDT Procedure H&P Patient Profile-Procedures Name Nikki Martins Date of 1980 Address [address] [facility] [id number] [place] [address] Primary Secondary Phone Number Cyndi Fuchs Procedure(s): Procedures: EGD Primary contact name and number Extended Emergency Contact Information Primary Emergency Contact: AD AVILA Mobile Relation: Sister Preferred language: [place] Bill Poster Installer needed? No General Health Weight Vitals: 09/14/24 0813 Weight: 62.1 kg (136 lb 14.5 oz) BMI Body mass index is 21.44 kg/m . Allergies RX Allergies[1] Past Medical History Medical History[2] Provider assessment Diagnosis: GERD Medication Reviewed - yes Prior to Admission medications Medication Sig Start Date End Date Taking? Authorizing Provider amitriptyline (Elavil) 50 mg tablet Take 1 tablet (50 mg) by mouth once daily at bedtime. Yes Historical Provider, cholecalciferol (Vitamin D-3) 25 MCG (1000 UT) tablet Take 1 tablet (1,000 Units) by mouth once daily. Yes Historical Provider, cyanocobalamin (Vitamin B-12) 1,000 mcg tablet Take 1 tablet (1,000 mcg) by mouth once daily. Yes Historical Provider, dicyclomine (Bentyl) 10 mg capsule TAKE 1 CAPSULE (10 MG) BY MOUTH EVERY 8 (EIGHT) HOURS IF NEEDED (ABDOMINAL CRAMPING) Yes Historical Provider, omeprazole (PriLOSEC) [address] capsule 1 capsule (20 mg) 2 times a day before meals. Patient taking differently: 2 capsules (40 mg) once daily. Yes Historical Provider, ondansetron ODT (Zofran-ODT) 4 mg disintegrating tablet Dissolve 1 tablet (4 mg) in the mouth. 12/20/23 Yes Historical Provider, pregabalin (Lyrica) 50 mg capsule Take 1 capsule nightly for 1 week then take 1 capsule twice a daythereafter Patient not taking: No sig reported 08/13/24 09/14/24 Brissa Rain MD Physical Exam Vitals: 09/14/24 0813 BP: 159/83 Pulse: 75 Resp: 16 Temp: 36.3 C (97.3 F) SpO2: 98% General: A&Ox3, NAD. HEENT: AT/NC. CV: RRR. No murmur. Resp: CTA bilaterally. No wheezing, rhonchi or rales. GI: Soft, NT/ND. BSx4. Extrem: No edema. Pulses intact. Neuro: No focal deficits. Psych: Normal mood and affect. Procedure Plan - pre-procedural (re)assesment completed by physician: discharge/transfer patient when discharge criteria met Bisi Pena MD 09/14/2024 9:59 AM [1] Allergies Allergen Reactions Penicillins Anaphylaxis, Hives, Rash and Unknown Opioids - Morphine Analogues Nausea/vomiting Oxycodone-Acetaminophen GI intolerance Nausea, vomiting, and dizziness Pilocarpine Nausea/vomiting [2] History reviewed. No pertinent past medical history. documented in this [facility] Work Phone: [phone]) 507-663704-07-2025 History of Present illness Narrative* Brissa Rain MD - 08/13/2024 1:15 PM EDT PAIN MANAGEMENT FOLLOW-UP OFFICE NOTE Date of Service: 08/13/2024 SUBJECTIVE CHIEF COMPLAINT: Abdominal pain HISTORY OF PRESENT ILLNESS Nikki Martins is a 43 y.o. female with PMH hiatal hernia who presents for follow-up On 07/12, pt underwent CPB with 90% relief for 8 hours and was able to enjoy a steak lunch w/o nauseaor worsening sx. Undergoing MALS vs GI work-up and s/f F/U with Dr Potter on 09/11. Asks what can be done in meantime. Pt denies new-onset numbness, weakness, bowel/bladder incontinence. Pt denies recent infection, allergy to Latex/iodine/contrast. Patient is currently taking the following blood thinner(s): N/A Procedure log: CPB 07/12/24: 90% relief 8 h REVIEW OF SYSTEMS Review of Systems Constitutional: Negative. HENT: Negative. Eyes: Negative. Respiratory: Negative. Cardiovascular: Negative. Gastrointestinal: Positive for abdominal pain, nausea and vomiting. Negative for constipation and diarrhea. Endocrine: Negative. Musculoskeletal: Negative. Skin: Negative. Neurological: Negative. Hematological: Negative. Psychiatric/Behavioral: Negative. PAST MEDICAL HISTORY History reviewed. No pertinent past medical history. History reviewed. No pertinent surgical history. No family history on file. CURRENT MEDICATIONS Current Outpatient Medications Medication Sig Dispense Refill amitriptyline (Elavil) 50 mg tablet Take 1 tablet (50 mg) by mouth once daily at bedtime. cholecalciferol (Vitamin D-3) 25 MCG (1000 UT) tablet Take 1 tablet (1,000 Units) by mouth once daily. cyanocobalamin (Vitamin B-12) 1,000 mcg tablet Take 1 tablet (1,000 mcg) by mouth once daily. dicyclomine (Bentyl) 10 mg capsule TAKE 1 CAPSULE (10 MG) BY MOUTH EVERY 8 (EIGHT) HOURS IF NEEDED (ABDOMINAL CRAMPING) omeprazole (PriLOSEC) [address] capsule 1 capsule (20 mg) 2 times a day before meals. ondansetron ODT (Zofran-ODT) 4 mg disintegrating tablet Dissolve 1 tablet (4 mg) in the mouth. No current facility-administered medications for this visit. ALLERGIES AND DRUG REACTIONS Allergies Allergen Reactions Penicillins Anaphylaxis, Hives, Rash and Unknown Opioids - Morphine Analogues Nausea/vomiting Oxycodone-Acetaminophen GI intolerance Nausea, vomiting, and dizziness Pilocarpine Nausea/vomiting OBJECTIVE Visit Vitals BP 164/83 Pulse 84 Ht 1.702 m (5' 7 ) Wt 62.1 kg (137 lb) SpO2 98% BMI 21.46 kg/m OB Status Hysterectomy Smoking Status Never BSA 1.71 m Last Recorded Pain Score (if available): Pain Score: 8 Physical Exam Vitals and nursing note reviewed. General: Sitting in chair, NAD Head: NCAT Eyes: Sclera/conjunctiva clear, EOMI, PERRL Nose/mouth: MMM CV: Good distal pulses Lungs: Good/equal chest excursion Abdomen: Soft, ND, epigastric TTP w/o guarding/rebound Ext: No cyanosis/edema MSK: able to move ext Neuro: AAOx3, CN grossly nl Psych: affect nl Skin: no rash/lesions REVIEW OF LABORATORY DATA I have reviewed the following lab results: No results found for: WBC , RBC , HGB , HCT , MCV , MCH , MCHC , RDW , PLT , MPV No results found for: NA , K , CO2 , BUN , CALCIUM No results found for: PROTIME , PTT , INR , FIBRINOGEN REVIEW OF RADIOLOGY I have reviewed the following: Radiology Studies N/A ASSESSMENT & PLAN Nikki Martins is a 43 y.o. 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 In the context of the complexity of this patient's chronic pain diagnosis, long-term expectations and care planning discussed. Imaging studies ordered are placed do elucidate the patient's diagnosis, butalso to evaluate the patient's candidacy for procedural and surgical interventions. The risks and benefits of these potential interventions are detailed as above. Brissa Rain MD Anesthesiologist & Interventional Pain Physician [facility] [place] O: [phone] F: [phone] 1:42 PM 08/13/24 [facility] Work Phone: 1(576) [phone] History of Present illness Narrative* Vee Cruz MD MPH - 08/06/2024 1:45 PM EDT Images from the original note were not included. GENERAL SURGERY REFLUX SURGERY NEW PATIENT CONSULTATION HISTORY AND PHYSICAL CLINIC DATE: 08/06/2024 NAME: Nikki Martins 43 y.o. WEIGHT: 137 LBS/ BMI TODAY: 21.14 Wt Readings from Last 1 Encounters: 08/06/24 62.1 kg (137 lb) BMI Readings from Last 1 Encounters: 08/06/24 21.14 kg/m SURGEON: Dr. Vee Cruz PRESENTING TODAY for General Surgery initial consult visit. This [employer]ER spoke with a 43 y.o. female on08/02/24. Dr. Potter note attached below. 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 Was camping in [place] and thought had flu for 3 days. Lots of vomiting but no diarrhea or fever. Then had bloating, really loose stools and then chest started burning. Trinity the prilosec helped but did not completely relive. Threw up all she ate. Lost 30 lbs over 4-5 months. Can eat chicken and rice. Always has pain but sometimes spasms so bad feels like ribs will squish her. Kept a journal looking for food triggers. Can eat 2 small meals and then does a coupld of snacks as can't eat much. Pain at bottom o sternum and never goes away. Can only get a couple of hours of sleep. Increased with actibyty. Uses tylenol and ibuprofen and nothing works. Notes she was mofing bowels but was a lot of p ebbles. Then started metamucil and goes regularly. Notes does not eat much. Doing mostly nutrition drinks. She notes theinjection felt like night and day. Even felt more energetic. Started amytriptilline in March and that helped the dysphagia. She is on 50 at bedtime. She could never eat fast. Feels like food backs up. She notes multiple family members had gb removed. Dysphagia was so bad and could not take pills. CURRENT SYMPTOMS: Abdominal Pain: Yes Abdominal Bloating: Yes Burping: No Chest Pain: Yes Chronic Cough: No Constipation: No taking Fiber per another provider Diarrhea: No Dysphagia: Yes Hunger: No I have no feeling of being hungry or full Food Intolerances: Yes a lot of rice, chicken eating more Jell-o Pudding type foods Food Sticking: No Gassy: No Hiccups: Yes Hoarseness: Yes Hx Gastric Ulcers: No Nausea: Yes but I take Zofran before I eat because I throw up everything for like last 3 months Symptoms Affect Ability to Excercise: Yes Throat Clearing: No Vomiting: Yes Symptom Onset: since November or December of last year EATING HABITS HISTORY: Carbonated Beverages: No Caffeinated Beverages: Yes I still have my half caf this am Fluid intake: feels hydrated : No GERD - Health Related Quality of Life Questionnaire (GERD- HRQL) On PPI Omeprazole 40 mg Daily(was 20 mg BID) +Zofran & Diclocamine then told can take for severe acid reflux a Pepcid to does maybe twice a week currently. How bad is the heartburn? 4 = Symptoms affect daily activity Heartburn when lying down? 4 = Symptoms affect daily activity Heartburn when standing up? 4 = Symptoms affect daily activity Heartburn after meals? 4 = Symptoms affect daily activity usually hours later Does heartburn change your diet? 4 = Symptoms affect daily activity avoids spicy foods, sometimes I can eat something fine then 3 days later it triggers Does heartburn wake you from sleep? 2 = Symptoms noticeable and bothersome but not every day Do you have difficulty swallowing? 2 = Symptoms noticeable and bothersome but not every day Do you have pain with swallowing? 0 = No symptoms If you take medication, does this affect your daily life? 4 = Symptoms affect daily activity How bad is the regurgitation? 0 = No symptoms not no more Regurgitation when lying down? 0 = No symptoms Regurgitation when standing up? 0 = No symptoms Regurgitation after meals? 0 = No symptoms Does regurgitation change your diet? 0 = No symptoms Does regurgitation wake you from sleep? 0 = No symptoms How satisfied are you with your present condition? Satisfied Total score (calculated by summing the individual scores of questions 1-15): 28 Greatest possible score 75 (worst symptoms). Lowest possible score 0 (no symptoms). Heartburn score (calculated by summing the individual scores of questions 1-6): 22 Worst heartburn symptoms: 30. No heartburn symptoms: 0. Score less than or equal to 12 with each individual question not exceeding 2 indicate heartburn elimination. Regurgitation score (calculated by summing the individual scores of questions 10-15): 0 Worst regurgitation symptoms: 30. No regurgitation symptoms: 0. Score less than or equal to 12 with each individual question not exceeding 2 indicate regurgitationelimination. OTHER PROVIDER TEST RESULTS: CT transfer of outside films Status: Final result PACS Images Show images for CT transfer of outside films Exam Information Status Exam Begun Exam Ended Final 05/17/2024 13:42 US transfer of outside films Status: Final result PACS Images Show images for US transfer of outside films Exam Information Status Exam Begun Exam Ended Final 05/17/2024 13:40 NM transfer of outside films Status: Final result PACS Images Show images for NM transfer of outside films Exam Information Status Exam Begun Exam Ended Final 05/17/2024 13:39 XR transfer of outside films Status: Final result PACS Images Show images for XR transfer of outside films Exam Information Status Exam Begun Exam Ended Final 05/17/2024 13:37 US transfer of outside films Status: Final result PACS Images Show images for US transfer of outside films Exam Information Status Exam Begun Exam Ended Final 05/17/2024 13:36 NM HEPATOBILIARY SCAN W PHARMACOLOGICAL INTERVENTION FINDINGS: LIVER: Normal, prompt and uniform radiotracer uptake and clearing. BILIARY DUCTS: Normal radioisotopic biliary excretion. GALLBLADDER: Normal with no evidence of cystic duct obstruction. INTESTINE: Normal with no evidence of common biliary ductal obstruction. EJECTION FRACTION: 89 % within 60 minutes. (Normal EF > 38%). OTHER: Negative. NM/NM hepatobiliary w pharm IMPRESSION: 1. Normal nuclear medicine HIDA scan. Electronically authenticated by: RAMYA LAYNE Date: 01/10/2024 15:30 US RIGHT UPPER QUADRANT FINDINGS: LIVER: Slightly prominent, but normal echotexture. [...] abnormality of the liver. Electronically authenticated by: RAMYA LAYNE Date: 12/16/2023 15:43 OTHER PROVIDER IMPRESSION NOTES: Vascular Surgery Progress Notes Encounter Date: 05/29/2024 Signed Expand All Collapse All Vascular Surgery Consultation, History, Physical Nikki Martins [...] I will see her after these consultations. Assessment/Plan Diagnoses and all orders for this visit: Median arcuate ligament syndrome (CMS-HCC) - Referral to Pain Medicine; Future - Referral to General Surgery; Future Hiatal hernia - Referral to General Surgery; Future MANAGEMENT NEW PATIENT OFFICE NOTE Date of Service: 06/18/2024 SUBJECTIVE CHIEF COMPLAINT: Abdominal pain HISTORY OF PRESENT ILLNESS Nikki Martins is a 43 y.o. female with PMH hiatal hernia who presents as new patient referred by Dr Potter with abdominal pain.Pt presents with SO. Pt describes abdominal pain since November without any inciting trauma/incident, illness. Pain focal toepigastrium and radiates BL across upper abdomen/lower chest when worsened. Pain is worse with fatty, oily, fried foods. [place], carbonated, and acidic drinks also worsen pain. Pain assoc with N/V. Pain has been refractive to Tylenol, diet/lifestyle change, ibuprofen, amitriptyline, omeprazole, dicyclomine, ondansetron, >6 w HEP without sustained relief. Pain usually 5/10 and worsens to 9/10 with eating. She has lost 30 lb since November Interestingly, pt's partner has similar sx. Denies family hx. Claims underwent extensive work-up with ID, which was reportedly neg. Saw Dr Potter who referred her for CPB to assess candidacy for MALS. Appointment with Dr Cruz in October. Pt denies new-onset numbness, weakness, bowel/bladder incontinence. Pt denies recent infection, allergy to Latex/iodine/contrast. Patient is currently taking the following blood thinner(s): N/A ASSESSMENT & PLAN Nikki Martins is a 43 y.o. female with PMH hiatal hernia who presents as new patient referred by Dr Potter with abdominal pain. Pt presents with SO. 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 Pt meets medical necessity for proceduredue to failure of conservative measures. Reviewed procedural risks including bleeding, infection, nerve damage, paralysis. Also reviewed mitigating factors such as screening for infection/blood thinner use, sterile precautions, and image-guidance when applicable. All questions answered. Pt/guardianexpressed understanding and choose to proceed Today's visit involved establishment of care and a complete examination with review of records. In the context of the complexity of this patient's chronic pain diagnosis, long-term expectations and care planning discussed. Imaging studies ordered are placed do elucidate the patient's diagnosis, butalso to evaluate the patient's candidacy for procedural and surgical interventions. The risks and benefits of these potential interventions are detailed as above. ENT MEDICATIONS: Current Outpatient Medications Medication Sig Dispense Refill amitriptyline (Elavil) 50 mg tablet Take 1 tablet (50 mg) by mouth once daily at bedtime. cholecalciferol (Vitamin D-3) 25 MCG (1000 UT) tablet Take 1 tablet (1,000 Units) by mouth once daily. cyanocobalamin (Vitamin B-12) 1,000 mcg tablet Take 1 tablet (1,000 mcg) by mouth once daily. dicyclomine (Bentyl) 10 mg capsule TAKE 1 CAPSULE (10 MG) BY MOUTH EVERY 8 (EIGHT) HOURS IF NEEDED (ABDOMINAL CRAMPING) omeprazole (PriLOSEC) [address] capsule 1 capsule (20 mg) 2 times a day before meals. ondansetron ODT (Zofran-ODT) 4 mg disintegrating tablet Dissolve 1 tablet (4 mg) in the mouth. No current facility-administered medications for this visit. PAST MEDICAL HISTORY: Patient Active Problem List Diagnosis Abnormal mammogram Atypical chest pain Chest tightness Dysmenorrhea Dysphagia Elevated antinuclear antibody (SERA) level Endometriosis Enlarged liver Gastroesophageal reflux disease Iron deficiency Myogenic ptosis Ocular hypertension Pain of upper abdomen Abdominal pain Panic attack PAST SURGICAL HISTORY: No past surgical history on file. Dx lap for endometriosis Lap tubal ligation FAMILY HISTORY: No family history on file. SOCIAL HISTORY: Social History Socioeconomic History Marital status: Unknown Spouse name: Not on file Number of children: Not on file Years of education: Not on file Highest education level: Not on file Occupational History Not on file Tobacco Use Smoking status: Never Passive exposure: Never Smokeless tobacco: Never Vaping Use Vaping status: Not on file Substance and Sexual Activity Alcohol use: Never Drug use: Never Sexual activity: Not on file Other Topics Concern Not on file Social History Narrative Not on file Social Drivers of Health Financial Resource Strain: Not on file Food Insecurity: Not on file Transportation Needs: Not on file Physical Activity: Not on file Stress: Patient Declined (04/30/2024) Received from [facility] of Occupational Health - Occupational Stress Questionnaire Feeling of Stress : Patient declined Social Connections: Not on file Intimate Partner Violence: Not on file Housing Stability: Not on file ALLERGIES: Allergies Allergen Reactions Penicillins Anaphylaxis, Hives, Rash and Unknown Opioids - Morphine Analogues Nausea/vomiting Oxycodone-Acetaminophen GI intolerance Nausea, vomiting, and dizziness Pilocarpine Nausea/vomiting REVIEW OF SYSTEMS: GENERAL: Negative for malaise, significant weight loss and fever NECK: Negative for lumps, goiter, pain and significant neck swelling RESPIRATORY: Negative for cough, wheezing or shortness of breath. CARDIOVASCULAR: Negative for chest pain, leg swelling or palpitations. GI: Negative for abdominal discomfort, blood in stools or black stools or change in bowel habits : No history of dysuria, frequency or incontinence MUSCULOSKELETAL: Negative for joint pain or swelling, back pain or muscle pain. SKIN: Negative for lesions, rash, and itching. PSYCH: Negative for sleep disturbance, mood disorder and recent psychosocial stressors. ENDOCRINE: Negative for cold or heat intolerance, polyuria, polydipsia and goiter. PHYSICAL EXAM: Visit Vitals BP (!) 152/97 Pulse 72 General appearance: Skin: warm, no erythema or rashes Lungs: clear to percussion and auscultation Heart: regular rhythm and S1, S2 normal Abdomen: soft, tender in ruq and BRUAK, no rebound or guarding, no masses, no organomegaly Extremities: Normal exam of the extremities. No swelling or pain. Neck: supple with no nodes IMPRESSION: Nikki Martins is a 43 y.o. female presenting for evaluation of MALS. She starting having epigastric pain in November 2023, worse after eating. Since then, she has had an extensive workup, including an EGD and colonoscopy, with findings of a small hiatal hernia. She had a RUQ US that did not demonstrate any gallstones or cholecystitis, and had a HIDA scan that was normal. She had a GES done also which was normal. Her mesenteric duplex showed peak celiac axis velocities up to 280 cm/s in expirationwith normalization with inspiration. She saw Dr. Potter in May 2024, and more recently underwent a celiac plexus block on 07/12/24. She had a great response to that for 8 hours after, during which she was pain free and ate a meal and [employer]. The pain has returned since and is constant, worse when she eats. She has had laparoscopic evaluation for endometriosis in the past. She describes pain as cramping and spasms to both sides. She notes improvement of the pain with omeprazole. She has had 10-20 lb weight loss. With further questioning, her symptoms are as follows; Was camping in [place] and thought had flu for 3 days. Lots of vomiting but no diarrhea or fever. Then had bloating, really loose stools and then chest started burning. [place] the prilosec helped but did not completely relive. Threw up all she ate. Lost 30 lbs over 4-5 months. Can eat chicken and rice. Always has pain but sometimes spasms so bad feels like ribs will squish her. Kept a journal looking for food triggers. Can eat 2 small meals and then does a coupld of snacks as can't eat much. Pain at bottom o sternum and never goes away. Can only get a couple of hours of sleep. Increased with actibviy. Uses tylenol and ibuprofen and nothing works. Notes she was mofing bowels but was a lot of filiberto. Then started metamucil and goes regularly. Notes does not eat much. Doing mostly nutrition drinks. She notes theinjection felt like night and day. Even felt more energetic. Started amytriptilline in March and that helped the dysphagia. She is on 50 at bedtime. She could never eat fast. Feels like food backs up. She notes multiple family members had gb removed. Dysphagia was so bad and could not take pills. It is interesting that omeprazole and amytriptilline helped and myabe there is more esophageal/ugi pathology. Will do an egd and esophagram/ugi, follow up after tests to determine next steps. She mayalso have some imbalance in microbiome. PLAN: Try a probiotic daily or a yogurt daily UGI/Esophagram with views of the stomach-Schedule this in fluorosopy in radiology at your convenience EGD -For this you will need a airport driver. And also with endoflip Follow up after the studies. Dr. Vee Cruz M.D., MPH Director of Bariatric & Minimally Invasive Surgery [place] [address] T: [phone] F: [phone] Jessica Gracia, RN Teaching Manager Nurse Vegetable Worker, [employer] - Bariatric/General Surgery [facility] Patient Nursing Contact T: [phone] F: [phone] documented in this [facility] Work Phone: 1(327) 908-166003-31-2025 Instructions* Patient Instructions* Vee Cruz MD MPH - 08/06/2024 1:45 PM EDT PLAN: Try a probiotic daily or a yogurt daily UGI/Esophagram with views of the stomach-Schedule this in fluorosopy in radiology at your convenience EGD -For this you will need a airport driver. And also with endoflip Follow up after the studies. Dr. Vee Cruz M.D., MPH Director of Bariatric & Minimally Invasive Surgery [place] [address] T: [phone] F: [phone] Jessica Gracia RN Teaching Manager Nurse Vegetable Worker, Cow Rider - Bariatric/General Surgery [facility] Patient Nursing Contact T: [phone] F: [phone] [facility] Work Phone: 1(770) 656-810603-06-2025 Nurse Note* Tigist Oconnor RN - 07/12/2024 2:59 PM EST Pt arrived in stable condition, denies any neuro deficits, bandaid dry and intact. Discharge instructions reviewed. [facility]03-06-2025 Nurse Note* Tigist Oconnor RN - 07/12/2024 2:59 PM EST Pt arrived in stable condition, denies any neuro deficits, bandaid dry and intact. Discharge instructions reviewed. [facility] this [facility] Work Phone: 1(612) 422-808803-06-2025 Nurse Note* Tigist Oconnor RN - 07/12/2024 2:59 PM EST Pt arrived in stable condition, denies any neuro deficits, bandaid dry and intact. Discharge instructions reviewed. [facility] this [facility] Work Phone: 1(679) 367-139303-06-2025 NoteCeliac plexus block (CPB), left [facility] Procedure Note Celiac plexus block Time Out Performed: Yes Proceduralist: Brissa Rain MD Anesthesia: conscious sedation Consent Obtained and Documented: Confirmed Correct patient:Confirmed Correct procedure: Confirmed Correct side/site: Confirmed Correct patient position: Confirmed Correct side/site marking visible: Confirmed Correct X-Rays available: Confirmed Equipment available: Confirmed Patient Position: Prone Sterile prep with: Chloroprep and draped in the standard fashion Approach: Posterolateral approach at superior aspect of L1 vertebral body laterally on left side IV placed in pre-op. With the patient lying prone, the low back area to be injected was widely prepped and draped in the usual sterile fashion using ChloraPrep. The anatomical target site was determined using fluoroscopy by squaring off the superior endplate of L1, and then ipsilaterally obliquing the C-arm intensifier to the left side until the tip of the L1 transverse process was buried under the anterolateral border of the L1 vertebral body. Local anesthetic was given by raising a skin wheal and going down to the hub of the 25-gauge 1.25-inch needle. A 22-gauge 7 -inch Quincke needle was advanced just cephalad to the transverse process of L1 to a point at the anterolateral margin of L1 vertebral body utilizing intermittent fluoroscopy. With a lateral fluoroscopic view, the needle was advanced just anterior to the L1 vertebral body. After negative aspiration, 2.5 ml Omnipaque injected under live fluoro w/ DSA to visualize adequate spread anterior to vertebral bodies without vascular uptake. Then, under AP view and with utilization of DSA, 2.5 mL of Omnipaque contrast was injected to show adequate spread along the anterior surface of the vertebral body, and no vascular uptake. Medication was then injected slowly in 3 mL increments after another aspiration of the needle to confirm the needle had not entered vascular structure. Total injectate: 10 mg dexamethasone + 18 ml 0.375% bupivacaine Additional Drugs/Substances Administered: 1% lidocaine 3 cc for skin infiltration Anesthesia for procedure: intravenous as per nursing records; Pulse oximetry, NIBP monitoring for entire procedure; see nursing flowsheets for detail Sedation: Patient received minimal intravenous sedation/anxiolysis for the procedure today. They exhibited responsiveness to verbal stimulation throughout procedure. Pt provided with supplemental O2 via NC and was monitored with continuous pulse ox/telemetry and continual NIBP. Patient maintained uninhibited airway, ventilation, and cardiovascular function without issue. See nursing note/flowsheet for more detail The procedure was completed without complications and was tolerated well. Hemostasis achieved. Band-Aids placed. images saved to hard drive/PACS Dispo: The patient was monitored after the procedure until recovered from sedation. IV removed. Discharged home in stable condition Brissa Rain MD Anesthesiologist & Interventional Pain Physician [facility] [place] O: [phone] F: [phone] 2:08 PM 07/12/[id number] NoteCeliac plexus block (CPB), left [facility] Procedure Note Celiac plexus block Time Out Performed: Yes Proceduralist: Brissa Rain MD Anesthesia: conscious sedation Consent Obtained and Documented: Confirmed Correct patient:Confirmed Correct procedure: Confirmed Correct side/site: Confirmed Correct patient position: Confirmed Correct side/site marking visible: Confirmed Correct X-Rays available: Confirmed Equipment available: Confirmed Patient Position: Prone Sterile prep with: Chloroprep and draped in the standard fashion Approach: Posterolateral approach at superior aspect of L1 vertebral body laterally on left side IV placed in pre-op. With the patient lying prone, the low back area to be injected was widely prepped and draped in the usual sterile fashion using ChloraPrep. The anatomical target site was determined using fluoroscopy by squaring off the superior endplate of L1, and then ipsilaterally obliquing the C-arm intensifier to the left side until the tip of the L1 transverse process was buried under the anterolateral border of the L1 vertebral body. Local anesthetic was given by raising a skin wheal and going down to the hub of the 25-gauge 1.25-inch needle. A 22-gauge 7 -inch Quincke needle was advanced just cephalad to the transverse process of L1 to a point at the anterolateral margin of L1 vertebral body utilizing intermittent fluoroscopy. With a lateral fluoroscopic view, the needle was advanced just anterior to the L1 vertebral body. After negative aspiration, 2.5 ml Omnipaque injected under live fluoro w/ DSA to visualize adequate spread anterior to vertebral bodies without vascular uptake. Then, under AP view and with utilization of DSA, 2.5 mL of Omnipaque contrast was injected to show adequate spread along the anterior surface of the vertebral body, and no vascular uptake. Medication was then injected slowly in 3 mL increments after another aspiration of the needle to confirm the needle had not entered vascular structure. Total injectate: 10 mg dexamethasone + 18 ml 0.375% bupivacaine Additional Drugs/Substances Administered: 1% lidocaine 3 cc for skin infiltration Anesthesia for procedure: intravenous as per nursing records; Pulse oximetry, NIBP monitoring for entire procedure; see nursing flowsheets for detail Sedation: Patient received minimal intravenous sedation/anxiolysis for the procedure today. They exhibited responsiveness to verbal stimulation throughout procedure. Pt provided with supplemental O2 via NC and was monitored with continuous pulse ox/telemetry and continual NIBP. Patient maintained uninhibited airway, ventilation, and cardiovascular function without issue. See nursing note/flowsheet for more detail The procedure was completed without complications and was tolerated well. Hemostasis achieved. Band-Aids placed. images saved to hard drive/PACS Dispo: The patient was monitored after the procedure until recovered from sedation. IV removed. Discharged home in stable condition Brissa Rain MD Anesthesiologist & Interventional Pain Physician [facility] [place] O: [phone] F: [phone] 2:08 PM 07/12/[id number] Hospital Discharge instructions* Discharge Instructions* Brissa Rain MD - 07/12/2024 2:53 PM EST DISCHARGE INSTRUCTIONS FOR INJECTIONS You underwent a celiac plexus block today Aftermost injections, it is recommended that you relax and limit your activity for the remainder ofthe day unless you have been told otherwise by your pain physician. You should not drive a car, operate machinery, or make important legal decisions unless otherwise directed by your pain physician. You may resume your normal activity, including exercise, tomorrow. Keep a written pain diary of how much pain relief you experienced following the injection procedureand the length of time of pain relief you experienced pain relief. Following diagnostic injections like medial branch nerve blocks, sacroiliac joint blocks, stellate ganglion injections and other blocks, it is very important you record the specific amount of pain relief you experienced immediately after the injectionand how long it lasted. Your doctor will ask you for this information at your follow up visit. For all injections, please keep the injection site dry and inspect the site for a couple of days. You may remove the Band-Aid the day of the injection at any time. Some discomfort, bruising or slight swelling may occur at the injection site. This is not abnormal if it occurs. If needed you may: -Take over the counter medication such as Tylenol or Motrin. -Apply an ice pack for 30 minutes, 2 to 3 times a day for the first 24 hours. You may shower today; no soaking baths, hot tubs, whirlpools or swimming pools for two days. If you are given steroids in your injection, it may take 3-5 days for the steroid medication to take effect. You may notice a worsening of your symptoms for 1-2 days after the injection. This is not abnormal. You may use acetaminophen, ibuprofen, or prescription medication that your doctor may have prescribed for you if you need to do so. A few common side effects of steroids include facial flushing, sweating, restlessness, irritability,difficulty sleeping, increase in blood sugar, and increased blood pressure. If you have diabetes, please monitor your blood sugar at least once a day for at least 5 days. If you have poorly controlled high blood pressure, monitoryour blood pressure for at least 2 days and contact your primary care physician if these numbers are unusually high for you. If you take aspirin or non-steroidal anti-inflammatory drugs (examples are Motrin, Advil, ibuprofen, Naprosyn, Voltaren, Relafen, etc.) you may restart these this evening, but stop taking it 3 days before your next appointment, unless instructed otherwiseby your physician. You do not need to discontinue jwn-ienvgji-jiaqxqrfew pain medications prior to an injection (examples: Celebrex, tramadol, hydrocodone and acetaminophen). If you take a blood thinning medication (Coumadin, Lovenox, Fragmin,Ticlid, Plavix, Pradaxa, etc.),please discuss this with your primary care physician/tax intern and your pain physician. These medications MUST be discontinued before you can have an injection safely, without the risk of uncontrolled bleeding. If these medications are not discontinued for an appropriate period of time, you willnot be able to receivean injection. If you are taking Coumadin, please have your INR checked the morning of your procedure and bringtheresult to your appointment unless otherwise instructed. If your INR is over 1.2, your injection mayneed to be rescheduled to avoid uncontrolled bleeding from the needle placement. Call [facility] at [phone] between 8am-4pm Tuesday - Tuesday if you are experiencing the following: If you received an epidural or spinal injection: -Headache that doesnot go away with medicine, is worse when sitting or standing up, and is greatly relieved upon lying down. -Severe pain worse than or different than your baseline pain. -Chills or fever (101 F or greater). -Drainage or signs of infection at the injection site Go directly to the Emergency Department if you are experiencing the following and received an epidural or spinal injection: -Abrupt weakness or progressive weakness in your legs that starts after you leave the clinic. -Abrupt severe or worsening numbness in your legs. -Inability to urinate after the injection or loss of bowel or bladder control without the urge to defecate or urinate. If you have a clinical question that cannot wait until your next appointment, please call [phone] between 8am-4pm Tuesday - Tuesday or send a Courtanet message. We do our best to return all non-emergency messages within 24 hours, Tuesday - Tuesday. A nurse or physician will return your message. If you need to cancel an appointment, please call the scheduling staff at [phone] during normal business hours or leave a message at least 24 hours in advance. If you are going to be sedated for your next procedure, you MUST have responsible adult who can legally drive accompany you home. You cannot eat or drink for eight hours prior to the planned procedure if you are going to receive sedation. You may take your non-blood thinning medications with a small sip of water. documented in this [facility] Work Phone: 1(473) 551-864803-06-2025 Hospital Discharge instructions* Discharge Instructions* Brissa Rain MD - 07/12/2024 2:53 PM EST DISCHARGE INSTRUCTIONS FOR INJECTIONS You underwent a celiac plexus block today Aftermost injections, it is recommended that you relax and limit your activity for the remainder ofthe day unless you have been told otherwise by your pain physician. You should not drive a car, operate machinery, or make important legal decisions unless otherwise directed by your pain physician. You may resume your normal activity, including exercise, tomorrow. Keep a written pain diary of how much pain relief you experienced following the injection procedureand the length of time of pain relief you experienced pain relief. Following diagnostic injections like medial branch nerve blocks, sacroiliac joint blocks, stellate ganglion injections and other blocks, it is very important you record the specific amount of pain relief you experienced immediately after the injectionand how long it lasted. Your doctor will ask you for this information at your follow up visit. For all injections, please keep the injection site dry and inspect the site for a couple of days. You may remove the Band-Aid the day of the injection at any time. Some discomfort, bruising or slight swelling may occur at the injection site. This is not abnormal if it occurs. If needed you may: -Take over the counter medication such as Tylenol or Motrin. -Apply an ice pack for 30 minutes, 2 to 3 times a day for the first 24 hours. You may shower today; no soaking baths, hot tubs, whirlpools or swimming pools for two days. If you are given steroids in your injection, it may take 3-5 days for the steroid medication to take effect. You may notice a worsening of your symptoms for 1-2 days after the injection. This is not abnormal. You may use acetaminophen, ibuprofen, or prescription medication that your doctor may have prescribed for you if you need to do so. A few common side effects of steroids include facial flushing, sweating, restlessness, irritability,difficulty sleeping, increase in blood sugar, and increased blood pressure. If you have diabetes, please monitor your blood sugar at least once a day for at least 5 days. If you have poorly controlled high blood pressure, monitoryour blood pressure for at least 2 days and contact your primary care physician if these numbers are unusually high for you. If you take aspirin or non-steroidal anti-inflammatory drugs (examples are Motrin, Advil, ibuprofen, Naprosyn, Voltaren, Relafen, etc.) you may restart these this evening, but stop taking it 3 days before your next appointment, unless instructed otherwiseby your physician. You do not need to discontinue kbm-pxyoppa-wwfegrcjdm pain medications prior to an injection (examples: Celebrex, tramadol, hydrocodone and acetaminophen). If you take a blood thinning medication (Coumadin, Lovenox, Fragmin,Ticlid, Plavix, Pradaxa, etc.),please discuss this with your primary care physician/tax intern and your pain physician. These medications MUST be discontinued before you can have an injection safely, without the risk of uncontrolled bleeding. If these medications are not discontinued for an appropriate period of time, you willnot be able to receivean injection. If you are taking Coumadin, please have your INR checked the morning of your procedure and bringtheresult to your appointment unless otherwise instructed. If your INR is over 1.2, your injection mayneed to be rescheduled to avoid uncontrolled bleeding from the needle placement. Call [facility] at [phone] between 8am-4pm Tuesday - Tuesday if you are experiencing the following: If you received an epidural or spinal injection: -Headache that doesnot go away with medicine, is worse when sitting or standing up, and is greatly relieved upon lying down. -Severe pain worse than or different than your baseline pain. -Chills or fever (101 F or greater). -Drainage or signs of infection at the injection site Go directly to the Emergency Department if you are experiencing the following and received an epidural or spinal injection: -Abrupt weakness or progressive weakness in your legs that starts after you leave the clinic. -Abrupt severe or worsening numbness in your legs. -Inability to urinate after the injection or loss of bowel or bladder control without the urge to defecate or urinate. If you have a clinical question that cannot wait until your next appointment, please call [phone] between 8am-4pm Tuesday - Tuesday or send a Courtanet message. We do our best to return all non-emergency messages within 24 hours, Tuesday - Tuesday. A nurse or physician will return your message. If you need to cancel an appointment, please call the scheduling staff at [phone] during normal business hours or leave a message at least 24 hours in advance. If you are going to be sedated for your next procedure, you MUST have responsible adult who can legally drive accompany you home. You cannot eat or drink for eight hours prior to the planned procedure if you are going to receive sedation. You may take your non-blood thinning medications with a small sip of water. [facility] Work Phone: 1(356) 378-445603-06-2025 Attending History and physical note* Brissa Rain MD - 07/12/2024 2:45 PM EST H&P reviewed. The patient was examined and there are no changes to the H&P. Nikki Martinsis a 43 y.o. female with PMH hiatal hernia who presents for diagnostic/therapeutic CPB w/ IV sed toassess candidacy for surgery. Patient's pain stable and persistent from last visit. Appropriately NPO. ASA 2. No personal/family hx issues with anesthesia. Denies allergies to Latex, steroids, local anesthetics, or iodine/contrast. Denies being on blood thinners. Not diabetic. Denies fever, chills,NS, CP, SOB, cough, N/V. Discussed procedure risks/benefits in detail with patient. Pt meets medical necessity for proceduredue to failure of conservative measures. Reviewed procedural risks including bleeding, infection, nerve damage, paralysis. Also reviewed mitigating factors such as screening for infection/blood thinner use, sterile precautions, and image-guidance when applicable. All questions answered. Pt/guardianexpressed understanding and choose to proceed Brissa Rain MD Anesthesiologist & Interventional Pain Physician [facility] [place] O: [phone] F: [phone] 2:08 PM 07/12/24 Source Note - Brissa Rain MD - 06/18/2024 9:00 AM EST PAIN MANAGEMENT NEW PATIENT OFFICE NOTE Date of Service: 06/18/2024 SUBJECTIVE CHIEF COMPLAINT: Abdominal pain HISTORY OF PRESENT ILLNESS Nikki Martins is a 43 y.o. female with PMH hiatal hernia who presents as new patient referred by Dr Potter with abdominal pain.Pt presents with SO. Pt describes abdominal pain since November without any inciting trauma/incident, illness. Pain focal toepigastrium and radiates BL across upper abdomen/lower chest when worsened. Pain is worse with fatty, oily, fried foods. [place], carbonated, and acidic drinks also worsen pain. Pain assoc with N/V. Pain has been refractive to Tylenol, diet/lifestyle change, ibuprofen, amitriptyline, omeprazole, dicyclomine, ondansetron, >6 w HEP without sustained relief. Pain usually 5/10 and worsens to 9/10 with eating. She has lost 30 lb since November Interestingly, pt's partner has similar sx. Denies family hx. Claims underwent extensive work-up with ID, which was reportedly neg. Saw Dr Potter who referred her for CPB to assess candidacy for MALS. Appointment with Dr Cruz in October. Pt denies new-onset numbness, weakness, bowel/bladder incontinence. Pt denies recent infection, allergy to Latex/iodine/contrast. Patient is currently taking the following blood thinner(s): N/A REVIEW OF SYSTEMS Review of Systems Constitutional: Negative. HENT: Negative. Eyes: Negative. Respiratory: Negative. Cardiovascular: Negative. Gastrointestinal: Positive for abdominal pain, nausea and vomiting. Negative for constipation and diarrhea. Endocrine: Negative. Musculoskeletal: Negative. Skin: Negative. Neurological: Negative. Hematological: Negative. Psychiatric/Behavioral: Negative. PAST MEDICAL HISTORY History reviewed. No pertinent past medical history. History reviewed. No pertinent surgical history. No family history on file. CURRENT MEDICATIONS Current Outpatient Medications Medication Sig Dispense Refill amitriptyline (Elavil) 50 mg tablet Take 1 tablet (50 mg) by mouth once daily at bedtime. cholecalciferol (Vitamin D-3) 25 MCG (1000 UT) tablet Take 1 tablet (1,000 Units) by mouth once daily. cyanocobalamin (Vitamin B-12) 1,000 mcg tablet Take 1 tablet (1,000 mcg) by mouth once daily. dicyclomine (Bentyl) 10 mg capsule TAKE 1 CAPSULE (10 MG) BY MOUTH EVERY 8 (EIGHT) HOURS IF NEEDED (ABDOMINAL CRAMPING) omeprazole (PriLOSEC) [address] capsule 1 capsule (20 mg) 2 times a day before meals. ondansetron ODT (Zofran-ODT) 4 mg disintegrating tablet Dissolve 1 tablet (4 mg) in the mouth. pilocarpine (Salagen) 5 mg tablet TAKE 1 TABLET BY MOUTH 4 TIMES A DAY NEEDED (15 MINUTES BEFOREMEALS AND AT BEDTIME) (Patient not taking: Reported on 06/18/2024) No current facility-administered medications for this visit. ALLERGIES AND DRUG REACTIONS Allergies Allergen Reactions Penicillins Anaphylaxis, Hives, Rash and Unknown Opioids - Morphine Analogues Nausea/vomiting Oxycodone-Acetaminophen GI intolerance Nausea, vomiting, and dizziness OBJECTIVE Visit Vitals BP 140/80 Resp 16 Ht 1.702 m (5' 7 ) Wt 57.2 kg (126 lb) BMI 19.73 kg/m OB Status Hysterectomy Smoking Status Never BSA 1.64 m Last Recorded Pain Score (if available): Pain Score: 7 Physical Exam Vitals and nursing note reviewed. General: Sitting in chair, NAD Head: NCAT Eyes: Sclera/conjunctiva clear, EOMI, PERRL Nose/mouth: MMM CV: Good distal pulses Lungs: Good/equal chest excursion Abdomen: Soft, ND, epigastric TTP w/o guarding/rebound Ext: No cyanosis/edema MSK: able to move ext Neuro: AAOx3, CN grossly nl Psych: affect nl Skin: no rash/lesions REVIEW OF LABORATORY DATA I have reviewed the following lab results: No results found for: WBC , RBC , HGB , HCT , MCV , MCH , MCHC , RDW , PLT , MPV No results found for: NA , K , CO2 , BUN , CALCIUM No results found for: PROTIME , PTT , INR , FIBRINOGEN REVIEW OF RADIOLOGY I have reviewed the following: Radiology Studies N/A ASSESSMENT & PLAN Nikki Martins is a 43 y.o. female with PMH hiatal hernia who presents as new patient referred by Dr Potter with abdominal pain. Pt presents with SO. 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 Pt meets medical necessity for proceduredue to failure of conservative measures. Reviewed procedural risks including bleeding, infection, nerve damage, paralysis. Also reviewed mitigating factors such as screening for infection/blood thinner use, sterile precautions, and image-guidance when applicable. All questions answered. Pt/guardianexpressed understanding and choose to proceed Today's visit involved establishment of care and a complete examination with review of records. In the context of the complexity of this patient's chronic pain diagnosis, long-term expectations and care planning discussed. Imaging studies ordered are placed do elucidate the patient's diagnosis, butalso to evaluate the patient's candidacy for procedural and surgical interventions. The risks and benefits of these potential interventions are detailed as above. Brissa Rain MD Anesthesiologist & Interventional Pain Physician [facility] [place] O: [phone] F: [phone] 9:14 AM 06/18/24 [facility] Work Phone: [phone] 501-678203-06-2025 History and physical note* Brissa Rain MD - 07/12/2024 2:45 PM EST H&P reviewed. The patient was examined and there are no changes to the H&P. Nikki Ohara a 43 y.o. female with PMH hiatal hernia who presents for diagnostic/therapeutic CPB w/ IV sed toassess candidacy for surgery. Patient's pain stable and persistent from last visit. Appropriately NPO. ASA 2. No personal/family hx issues with anesthesia. Denies allergies to Latex, steroids, local anesthetics, or iodine/contrast. Denies being on blood thinners. Not diabetic. Denies fever, chills,NS, CP, SOB, cough, N/V. Discussed procedure risks/benefits in detail with patient. Pt meets medical necessity for proceduredue to failure of conservative measures. Reviewed procedural risks including bleeding, infection, nerve damage, paralysis. Also reviewed mitigating factors such as screening for infection/blood thinner use, sterile precautions, and image-guidance when applicable. All questions answered. Pt/guardianexpressed understanding and choose to proceed Brissa Rain MD Anesthesiologist & Interventional Pain Physician [facility] [place] O: [phone] F: [phone] 2:08 PM 07/12/24 Source Note - Brissa Rain MD - 06/18/2024 9:00 AM EST PAIN MANAGEMENT NEW PATIENT OFFICE NOTE Date of Service: 06/18/2024 SUBJECTIVE CHIEF COMPLAINT: Abdominal pain HISTORY OF PRESENT ILLNESS Nikki Martins is a 43 y.o. female with PMH hiatal hernia who presents as new patient referred by Dr Potter with abdominal pain.Pt presents with SO. Pt describes abdominal pain since November without any inciting trauma/incident, illness. Pain focal toepigastrium and radiates BL across upper abdomen/lower chest when worsened. Pain is worse with fatty, oily, fried foods. [place], carbonated, and acidic drinks also worsen pain. Pain assoc with N/V. Pain has been refractive to Tylenol, diet/lifestyle change, ibuprofen, amitriptyline, omeprazole, dicyclomine, ondansetron, >6 w HEP without sustained relief. Pain usually 5/10 and worsens to 9/10 with eating. She has lost 30 lb since November Interestingly, pt's partner has similar sx. Denies family hx. Claims underwent extensive work-up with ID, which was reportedly neg. Saw Dr Potter who referred her for CPB to assess candidacy for MALS. Appointment with Dr Cruz in October. Pt denies new-onset numbness, weakness, bowel/bladder incontinence. Pt denies recent infection, allergy to Latex/iodine/contrast. Patient is currently taking the following blood thinner(s): N/A REVIEW OF SYSTEMS Review of Systems Constitutional: Negative. HENT: Negative. Eyes: Negative. Respiratory: Negative. Cardiovascular: Negative. Gastrointestinal: Positive for abdominal pain, nausea and vomiting. Negative for constipation and diarrhea. Endocrine: Negative. Musculoskeletal: Negative. Skin: Negative. Neurological: Negative. Hematological: Negative. Psychiatric/Behavioral: Negative. PAST MEDICAL HISTORY History reviewed. No pertinent past medical history. History reviewed. No pertinent surgical history. No family history on file. CURRENT MEDICATIONS Current Outpatient Medications Medication Sig Dispense Refill amitriptyline (Elavil) 50 mg tablet Take 1 tablet (50 mg) by mouth once daily at bedtime. cholecalciferol (Vitamin D-3) 25 MCG (1000 UT) tablet Take 1 tablet (1,000 Units) by mouth once daily. cyanocobalamin (Vitamin B-12) 1,000 mcg tablet Take 1 tablet (1,000 mcg) by mouth once daily. dicyclomine (Bentyl) 10 mg capsule TAKE 1 CAPSULE (10 MG) BY MOUTH EVERY 8 (EIGHT) HOURS IF NEEDED (ABDOMINAL CRAMPING) omeprazole (PriLOSEC) [address] capsule 1 capsule (20 mg) 2 times a day before meals. ondansetron ODT (Zofran-ODT) 4 mg disintegrating tablet Dissolve 1 tablet (4 mg) in the mouth. pilocarpine (Salagen) 5 mg tablet TAKE 1 TABLET BY MOUTH 4 TIMES A DAY NEEDED (15 MINUTES BEFOREMEALS AND AT BEDTIME) (Patient not taking: Reported on 06/18/2024) No current facility-administered medications for this visit. ALLERGIES AND DRUG REACTIONS Allergies Allergen Reactions Penicillins Anaphylaxis, Hives, Rash and Unknown Opioids - Morphine Analogues Nausea/vomiting Oxycodone-Acetaminophen GI intolerance Nausea, vomiting, and dizziness OBJECTIVE Visit Vitals BP 140/80 Resp 16 Ht 1.702 m (5' 7 ) Wt 57.2 kg (126 lb) BMI 19.73 kg/m OB Status Hysterectomy Smoking Status Never BSA 1.64 m Last Recorded Pain Score (if available): Pain Score: 7 Physical Exam Vitals and nursing note reviewed. General: Sitting in chair, NAD Head: NCAT Eyes: Sclera/conjunctiva clear, EOMI, PERRL Nose/mouth: MMM CV: Good distal pulses Lungs: Good/equal chest excursion Abdomen: Soft, ND, epigastric TTP w/o guarding/rebound Ext: No cyanosis/edema MSK: able to move ext Neuro: AAOx3, CN grossly nl Psych: affect nl Skin: no rash/lesions REVIEW OF LABORATORY DATA I have reviewed the following lab results: No results found for: WBC , RBC , HGB , HCT , MCV , MCH , MCHC , RDW , PLT , MPV No results found for: NA , K , CO2 , BUN , CALCIUM No results found for: PROTIME , PTT , INR , FIBRINOGEN REVIEW OF RADIOLOGY I have reviewed the following: Radiology Studies N/A ASSESSMENT & PLAN Nikki Martins is a 43 y.o. female with PMH hiatal hernia who presents as new patient referred by Dr Potter with abdominal pain. Pt presents with SO. 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 Pt meets medical necessity for proceduredue to failure of conservative measures. Reviewed procedural risks including bleeding, infection, nerve damage, paralysis. Also reviewed mitigating factors such as screening for infection/blood thinner use, sterile precautions, and image-guidance when applicable. All questions answered. Pt/guardianexpressed understanding and choose to proceed Today's visit involved establishment of care and a complete examination with review of records. In the context of the complexity of this patient's chronic pain diagnosis, long-term expectations and care planning discussed. Imaging studies ordered are placed do elucidate the patient's diagnosis, butalso to evaluate the patient's candidacy for procedural and surgical interventions. The risks and benefits of these potential interventions are detailed as above. Brissa Rain MD Anesthesiologist & Interventional Pain Physician [facility] [place] O: [phone] F: [phone] 9:14 AM 06/18/24 documented in this [facility] Work Phone: [phone]) [phone] History and physical note* Brissa Rain MD - 07/12/2024 2:45 PM EST H&P reviewed. The patient was examined and there are no changes to the H&P. Nikki Ohara a 43 y.o. female with PMH hiatal hernia who presents for diagnostic/therapeutic CPB w/ IV sed toassess candidacy for surgery. Patient's pain stable and persistent from last visit. Appropriately NPO. ASA 2. No personal/family hx issues with anesthesia. Denies allergies to Latex, steroids, local anesthetics, or iodine/contrast. Denies being on blood thinners. Not diabetic. Denies fever, chills,NS, CP, SOB, cough, N/V. Discussed procedure risks/benefits in detail with patient. Pt meets medical necessity for proceduredue to failure of conservative measures. Reviewed procedural risks including bleeding, infection, nerve damage, paralysis. Also reviewed mitigating factors such as screening for infection/blood thinner use, sterile precautions, and image-guidance when applicable. All questions answered. Pt/guardianexpressed understanding and choose to proceed Brissa Rain MD Anesthesiologist & Interventional Pain Physician [facility] [place] O: [phone] F: [phone] 2:08 PM 07/12/24 Source Note - Brissa Rain MD - 06/18/2024 9:00 AM EST PAIN MANAGEMENT NEW PATIENT OFFICE NOTE Date of Service: 06/18/2024 SUBJECTIVE CHIEF COMPLAINT: Abdominal pain HISTORY OF PRESENT ILLNESS Nikki Martins is a 43 y.o. female with PMH hiatal hernia who presents as new patient referred by Dr Potter with abdominal pain.Pt presents with SO. Pt describes abdominal pain since November without any inciting trauma/incident, illness. Pain focal toepigastrium and radiates BL across upper abdomen/lower chest when worsened. Pain is worse with fatty, oily, fried foods. [place], carbonated, and acidic drinks also worsen pain. Pain assoc with N/V. Pain has been refractive to Tylenol, diet/lifestyle change, ibuprofen, amitriptyline, omeprazole, dicyclomine, ondansetron, >6 w HEP without sustained relief. Pain usually 5/10 and worsens to 9/10 with eating. She has lost 30 lb since November Interestingly, pt's partner has similar sx. Denies family hx. Claims underwent extensive work-up with ID, which was reportedly neg. Saw Dr Potter who referred her for CPB to assess candidacy for MALS. Appointment with Dr Cruz in October. Pt denies new-onset numbness, weakness, bowel/bladder incontinence. Pt denies recent infection, allergy to Latex/iodine/contrast. Patient is currently taking the following blood thinner(s): N/A REVIEW OF SYSTEMS Review of Systems Constitutional: Negative. HENT: Negative. Eyes: Negative. Respiratory: Negative. Cardiovascular: Negative. Gastrointestinal: Positive for abdominal pain, nausea and vomiting. Negative for constipation and diarrhea. Endocrine: Negative. Musculoskeletal: Negative. Skin: Negative. Neurological: Negative. Hematological: Negative. Psychiatric/Behavioral: Negative. PAST MEDICAL HISTORY History reviewed. No pertinent past medical history. History reviewed. No pertinent surgical history. No family history on file. CURRENT MEDICATIONS Current Outpatient Medications Medication Sig Dispense Refill amitriptyline (Elavil) 50 mg tablet Take 1 tablet (50 mg) by mouth once daily at bedtime. cholecalciferol (Vitamin D-3) 25 MCG (1000 UT) tablet Take 1 tablet (1,000 Units) by mouth once daily. cyanocobalamin (Vitamin B-12) 1,000 mcg tablet Take 1 tablet (1,000 mcg) by mouth once daily. dicyclomine (Bentyl) 10 mg capsule TAKE 1 CAPSULE (10 MG) BY MOUTH EVERY 8 (EIGHT) HOURS IF NEEDED (ABDOMINAL CRAMPING) omeprazole (PriLOSEC) [address] capsule 1 capsule (20 mg) 2 times a day before meals. ondansetron ODT (Zofran-ODT) 4 mg disintegrating tablet Dissolve 1 tablet (4 mg) in the mouth. pilocarpine (Salagen) 5 mg tablet TAKE 1 TABLET BY MOUTH 4 TIMES A DAY NEEDED (15 MINUTES BEFOREMEALS AND AT BEDTIME) (Patient not taking: Reported on 06/18/2024) No current facility-administered medications for this visit. ALLERGIES AND DRUG REACTIONS Allergies Allergen Reactions Penicillins Anaphylaxis, Hives, Rash and Unknown Opioids - Morphine Analogues Nausea/vomiting Oxycodone-Acetaminophen GI intolerance Nausea, vomiting, and dizziness OBJECTIVE Visit Vitals BP 140/80 Resp 16 Ht 1.702 m (5' 7 ) Wt 57.2 kg (126 lb) BMI 19.73 kg/m OB Status Hysterectomy Smoking Status Never BSA 1.64 m Last Recorded Pain Score (if available): Pain Score: 7 Physical Exam Vitals and nursing note reviewed. General: Sitting in chair, NAD Head: NCAT Eyes: Sclera/conjunctiva clear, EOMI, PERRL Nose/mouth: MMM CV: Good distal pulses Lungs: Good/equal chest excursion Abdomen: Soft, ND, epigastric TTP w/o guarding/rebound Ext: No cyanosis/edema MSK: able to move ext Neuro: AAOx3, CN grossly nl Psych: affect nl Skin: no rash/lesions REVIEW OF LABORATORY DATA I have reviewed the following lab results: No results found for: WBC , RBC , HGB , HCT , MCV , MCH , MCHC , RDW , PLT , MPV No results found for: NA , K , CO2 , BUN , CALCIUM No results found for: PROTIME , PTT , INR , FIBRINOGEN REVIEW OF RADIOLOGY I have reviewed the following: Radiology Studies N/A ASSESSMENT & PLAN Nikki Martins is a 43 y.o. female with PMH hiatal hernia who presents as new patient referred by Dr Potter with abdominal pain. Pt presents with SO. 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 Pt meets medical necessity for proceduredue to failure of conservative measures. Reviewed procedural risks including bleeding, infection, nerve damage, paralysis. Also reviewed mitigating factors such as screening for infection/blood thinner use, sterile precautions, and image-guidance when applicable. All questions answered. Pt/guardianexpressed understanding and choose to proceed Today's visit involved establishment of care and a complete examination with review of records. In the context of the complexity of this patient's chronic pain diagnosis, long-term expectations and care planning discussed. Imaging studies ordered are placed do elucidate the patient's diagnosis, butalso to evaluate the patient's candidacy for procedural and surgical interventions. The risks and benefits of these potential interventions are detailed as above. Brissa Rain MD Anesthesiologist & Interventional Pain Physician [facility] [place] O: [phone] F: [phone] 9:14 AM 06/18/24 documented in this [facility] Work Phone: [phone]) [phone] History of Present illness Narrative* Brissa Rain MD - 06/18/2024 9:00 AM EST PAIN MANAGEMENT NEW PATIENT OFFICE NOTE Date of Service: 06/18/2024 SUBJECTIVE CHIEF COMPLAINT: Abdominal pain HISTORY OF PRESENT ILLNESS Nikki Martins is a 43 y.o. female with PMH hiatal hernia who presents as new patient referred by Dr Potter with abdominal pain.Pt presents with SO. Pt describes abdominal pain since November without any inciting trauma/incident, illness. Pain focal toepigastrium and radiates BL across upper abdomen/lower chest when worsened. Pain is worse with fatty, oily, fried foods. [place], carbonated, and acidic drinks also worsen pain. Pain assoc with N/V. Pain has been refractive to Tylenol, diet/lifestyle change, ibuprofen, amitriptyline, omeprazole, dicyclomine, ondansetron, >6 w HEP without sustained relief. Pain usually 5/10 and worsens to 9/10 with eating. She has lost 30 lb since November Interestingly, pt's partner has similar sx. Denies family hx. Claims underwent extensive work-up with ID, which was reportedly neg. Saw Dr Potter who referred her for CPB to assess candidacy for MALS. Appointment with Dr Cruz in October. Pt denies new-onset numbness, weakness, bowel/bladder incontinence. Pt denies recent infection, allergy to Latex/iodine/contrast. Patient is currently taking the following blood thinner(s): N/A REVIEW OF SYSTEMS Review of Systems Constitutional: Negative. HENT: Negative. Eyes: Negative. Respiratory: Negative. Cardiovascular: Negative. Gastrointestinal: Positive for abdominal pain, nausea and vomiting. Negative for constipation and diarrhea. Endocrine: Negative. Musculoskeletal: Negative. Skin: Negative. Neurological: Negative. Hematological: Negative. Psychiatric/Behavioral: Negative. PAST MEDICAL HISTORY History reviewed. No pertinent past medical history. History reviewed. No pertinent surgical history. No family history on file. CURRENT MEDICATIONS Current Outpatient Medications Medication Sig Dispense Refill amitriptyline (Elavil) 50 mg tablet Take 1 tablet (50 mg) by mouth once daily at bedtime. cholecalciferol (Vitamin D-3) 25 MCG (1000 UT) tablet Take 1 tablet (1,000 Units) by mouth once daily. cyanocobalamin (Vitamin B-12) 1,000 mcg tablet Take 1 tablet (1,000 mcg) by mouth once daily. dicyclomine (Bentyl) 10 mg capsule TAKE 1 CAPSULE (10 MG) BY MOUTH EVERY 8 (EIGHT) HOURS IF NEEDED (ABDOMINAL CRAMPING) omeprazole (PriLOSEC) [address] capsule 1 capsule (20 mg) 2 times a day before meals. ondansetron ODT (Zofran-ODT) 4 mg disintegrating tablet Dissolve 1 tablet (4 mg) in the mouth. pilocarpine (Salagen) 5 mg tablet TAKE 1 TABLET BY MOUTH 4 TIMES A DAY NEEDED (15 MINUTES BEFOREMEALS AND AT BEDTIME) (Patient not taking: Reported on 06/18/2024) No current facility-administered medications for this visit. ALLERGIES AND DRUG REACTIONS Allergies Allergen Reactions Penicillins Anaphylaxis, Hives, Rash and Unknown Opioids - Morphine Analogues Nausea/vomiting Oxycodone-Acetaminophen GI intolerance Nausea, vomiting, and dizziness OBJECTIVE Visit Vitals BP 140/80 Resp 16 Ht 1.702 m (5' 7 ) Wt 57.2 kg (126 lb) BMI 19.73 kg/m OB Status Hysterectomy Smoking Status Never BSA 1.64 m Last Recorded Pain Score (if available): Pain Score: 7 Physical Exam Vitals and nursing note reviewed. General: Sitting in chair, NAD Head: NCAT Eyes: Sclera/conjunctiva clear, EOMI, PERRL Nose/mouth: MMM CV: Good distal pulses Lungs: Good/equal chest excursion Abdomen: Soft, ND, epigastric TTP w/o guarding/rebound Ext: No cyanosis/edema MSK: able to move ext Neuro: AAOx3, CN grossly nl Psych: affect nl Skin: no rash/lesions REVIEW OF LABORATORY DATA I have reviewed the following lab results: No results found for: WBC , RBC , HGB , HCT , MCV , MCH , MCHC , RDW , PLT , MPV No results found for: NA , K , CO2 , BUN , CALCIUM No results found for: PROTIME , PTT , INR , FIBRINOGEN REVIEW OF RADIOLOGY I have reviewed the following: Radiology Studies N/A ASSESSMENT & PLAN Nikki Martins is a 43 y.o. female with PMH hiatal hernia who presents as new patient referred by Dr Potter with abdominal pain. Pt presents with SO. 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 Pt meets medical necessity for proceduredue to failure of conservative measures. Reviewed procedural risks including bleeding, infection, nerve damage, paralysis. Also reviewed mitigating factors such as screening for infection/blood thinner use, sterile precautions, and image-guidance when applicable. All questions answered. Pt/guardianexpressed understanding and choose to proceed Today's visit involved establishment of care and a complete examination with review of records. In the context of the complexity of this patient's chronic pain diagnosis, long-term expectations and care planning discussed. Imaging studies ordered are placed do elucidate the patient's diagnosis, butalso to evaluate the patient's candidacy for procedural and surgical interventions. The risks and benefits of these potential interventions are detailed as above. Brissa Rain MD Anesthesiologist & Interventional Pain Physician [facility] [place] O: [phone] F: [phone] 9:14 AM 06/18/24 documented in this [facility] Work Phone: [phone]) 745-568501-21-2025 History of Present illness Narrative* Hossein Potter MD - 05/29/2024 10:30 AM EST Vascular Surgery Consultation, History, Physical Nikki Martins [...] to General Surgery; Future documented in this [facility] Work Phone: [phone] 463-698312-23-2024 History of Present illness Narrative* CHELA ROJAS - 04/30/2024 9:00 AM EST Pt states her feet and hands have been swelling often Pt states she has to watch how much and what she eats- she has had two emesis in the last month Pt takes dicyclomine twice a day D3 and B12 * Cyndi Epperson NP - 04/30/2024 9:00 AM EST Images from the original note were not [...] Pertinent negatives include no belching, constipation, diarrhea, dysuria,fever, flatus, frequency, headaches, hematochezia, hematuria, melena, myalgias [...] my chart but did not go through * Cyndi Epperson NP - 04/30/2024 6:18 AM ESTAssociated Problem(s): Elevated antinuclear antibody (SERA) level Continue [...] my chart but did not go through * Cyndi Epperson NP - 04/30/2024 6:16 AM ESTAssociated Problem(s): Pain of upper abdomen Cont with [...] out to her specialists documented in this [facility]12-23-2024 Instructions* Patient Instructions* Cyndi Epperson NP - 04/30/2024 9:00 AM [...] rashes etc as well documented in this [facility]11-20-2024 History of Present illness Narrative* Cyndi Epperson NP - 03/28/2024 12:48 PM ESTAssociated Problem(s): Pain of upper abdomen Cont with [...] needs to reach out to her specialists * Cyndi Epperson NP - 03/28/2024 12:48 PM ESTAssociated Problem(s): Elevated antinuclear antibody (SERA) level Continue with Rheumatology * CHELA ROJAS - 03/28/2024 8:40 AM EST Pt was suppose to have a appt [...] of 20 hrs in the last 24hr * Cyndi Epperson NP - 03/28/2024 8:40 AM EST Images from the original note were not included. Nikki Martins is a 43 y.o. female presents with chief complaint of Abdominal Pain and GI Problem HPI: Here for a recheck. Still with same complaints of abd pain, saw her GI in [place], was supposed to be sent on to a specialist in [place] Dr [place] Since last visit autoimmune testing was back and she was referred to Rheumatology as well Presents here today , frustrated, miserable, and wanting some form of treatment for her condition. 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 03/22/[address] Isabel: had not received her labs, she had labs redrawn yesterday fu to [facility] 05/22/24 Off 03/27/24-03/29/24gg Abdominal Pain This is [...] level Continue with Rheumatology documented in this encounterCox [id number] NoteSubjective Patient ID: Nikki Martins is a 43 [...] November shortly after a camping trip to [place] with her boyfriend who apparently has similar symptoms. She was in [place] for 2 days continuing and swimming. She denies any fresh water consumption. She says since that time she has had epigastric discomfort and bloating and decreased appetite. She says she has lost approximately 15 pounds. She says that she is mostly eating boost and Ensure. She is planning on going to [facility] 02 March for continued evaluation. Currently, she denies fever, chills, night sweats, chest pain, shortness of breath, myalgia, arthralgia, joint swelling, rash. She denies hematochezia. She denies hematuria. She says she has had hair loss. Dqhetbzee-wxrefjeqoa-kvqpe Past medical history/past surgical history-endometriosis, G3, P4, tonsils, tota hysterectomy 2021 Social history-lives in [place], works at [employer], rare alcohol, quit smoking 3 years ago, [...] and parasite DNA. I will check her [facility]10-16-2024 History of Present illness Narrative* Cyndi Epperson NP - 02/22/2024 4:27 PM EDTAssociated Problem(s): Chest tightness Reviewed CT chest and labs ?GI source, anxiety?? * Cyndi Epperson NP - 02/22/2024 4:26 PM EDTAssociated Problem(s): Panic attack (CMS/HCC) Cause of chest pain?? * Cyndi Epperson NP - 02/22/2024 4:25 PM EDTAssociated Problem(s): Pain of upper abdomen Cont with GI Check amylase and lipase Fu in 4 weeks * Cyndi Epperson NP - 02/22/2024 3:00 PM EDT Images from the original note were not [...] appt with [facility] on 03/02/24 to look atblood supply of stomac\[ SUBJECTIVE: MEDICATIONS: Current Outpatient [...] labs ?GI source, anxiety?? documented in this encounterCox [id number] Evaluation + Plan note Future Scheduled Tests Laboratory* H. pylori Breath Test 01/19/24 [facility] [id number] History of Present illness Narrative* Cyndi Epperson NP - 01/11/2024 4:46 PM EDTAssociated Problem(s): Pain of upper abdomen Cont omeprazole and anti spasmodic Has GI appt 01/19/24, Unclear etiology: I do not think all related to HH, ?IBS? ??anxiety Will fu in 6 weeks * CHELA ROJAS - 01/11/2024 4:00 PM EDT Pt states that pain has not changed, the medication does help where it is tolerable but overall no changes. Pt states she has had frequent diarrhea since her colonoscopy and her bp at the hospital was 168/117 Pt was told that she has a Hiatal hernia and biopsied a few dark spots-waiting for results. * Cyndi Epperson NP - 01/11/2024 4:00 PM EDT Images from the original note were not [...] Orders Bilateral screening mammogram documented in this encounterCox [id number] NoteProgress Note-Nurse Patient called requesting Zofran after yesterdays visit. Sent to pharmacy per Mary Bhakta [facility]08-13-2024 Hospital Discharge instructions Patient Education 12/19/2023 23:16:40 Hepatomegaly, Jzjy-vr-Hvla Hepatomegaly Hepatomegaly is when the liver is [...] asked to do the following: Medicines Take truz-xkp-mbyxrwj and prescription medicines only as told by your doctor. Do not take any new medicine unless your doctor says it is okay. ?This includes vitamins, herbs, supplements, and aihr-kev-qhtzovo medicines. Some of these can hurtyour liver. General instructions Stay at a healthy [...] provider. Document Revised: 03/24/2022 Document Reviewed: 03/24/2022 [employer] Patient Education 2022 [employer]. 12/19/2023 23:16:40 Abdominal Pain, Adult Abdominal Pain, [...] Follow these instructions at home: Medicines Take amyb-xml-icwrsld and prescription medicines only as told by [...] Watch your condition for any changes. Take zjqx-lwq-tveuinu and prescription medicines only as told by [...] provider. Document Revised: 06/13/2020 Document Reviewed: 09/03/2019 [employer] Patient Education 2022 [employer]. Follow Up Care 12/19/2023 16:03:37 With:Booker Shelley Address: [address], [address] [address] [phone] Business (1) When:12/22/2023 With:CYNDI EPPERSON Address: [address] [place] [address] [phone] Business (1) When:Within 3 Day(s) [facility] 08-12-2024 NoteED Patient Education Note Gastroenterology Hepatomegaly Hepatomegaly is [...] to do the following: Medicines ? Take hdvo-xot-xehcrfb and prescription medicines only as told by your doctor. ? Do not take any new medicine unless your doctor says it is okay. ? This includes vitamins, herbs, supplements, and aion-ekt-wcuudpk medicines. Some of these can hurt your liver. General instructions ? Stay at a healthy weight. ? Follow a healthy diet. Eat a lot of these foods: ? Fruits. ? Vegetables. ? Whole grains. ? Do not drink alcohol. ? Do not smoke or use any products that contain nicotine or tobacco. If you need help quitting, askyour doctor. ? Keep all follow-up visits. Contact [...] provider. Document Revised: 03/24/2022 Document Reviewed: 03/24/2022 [employer] Patient Education ? 2022 [employer] Abdominal Pain, Adult Pain in the [...] these instructions at home: Medicines ? Take hyfh-zcl-jrwgyof and prescription medicines only as told by [...] like tar. ? You (more content not included)...[facility] No data available for this section [facility] Evaluation + Plan note Future Appointments Appointment Date:04/19/2024 02:45:00 PM Scheduled Provider:Daphney MCKINLEY, Booker Jenkins Location[place] Appointment Type:[facility] Follow Up Future Scheduled Tests Laboratory* H. pylori Breath Test 01/19/24 [facility] Evaluation + Plan note Future Appointments Appointment Date:03/16/2024 09:00:00 AM Scheduled Provider: Location:[facility] Surgical Services Appointment Type:Surgery Future Scheduled Tests Laboratory* H. pylori Breath Test 01/19/24 [facility] evaluation + Plan note Future Appointments Appointment Date:04/19/2024 02:45:00 PM Scheduled Provider:Booker Shelley MD [place] Appointment Type:[facility] Follow Up Future Scheduled Tests Laboratory* H. pylori Breath Test 01/19/24 Radiology* NM Gastric Emptying Study 01/19/24 [facility] evaluation noteNo assessment information available [facility] Work Phone: evaluation note* Diagnosis Pain of upper abdomen- Primary [...] of upper abdomen documented in this encounter [facility] HealthcareEvaluation note* Diagnosis Pain of upper abdomen- [...] nonspecific immunological findings documented in this encounter [facility] HealthcareEvaluation note* Diagnosis Pain of upper abdomen- [...] of upper abdomen documented in this encounter [facility] HealthcareEvaluation note* Diagnosis Pain of upper abdomen- [...] of upper abdomen documented in this encounter [facility] HealthcareEvaluation note* Diagnosis 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 Hiatal hernia Diaphragmatic hernia without mention of obstruction or gangrene documented in this encounter [facility] Work Phone: Evaluation note* Diagnosis Epigastric pain- Primary Abdominal pain, epigastric Median arcuate ligament syndrome (CMS-HCC) Celiac artery compression syndrome documented in this encounter [facility] Work Phone: Evaluation note* Diagnosis Epigastric pain Abdominal pain, epigastric Median arcuate ligament syndrome (CMS-HCC) Celiac artery compression syndrome documented in this encounter [facility] Work Phone: [phone] note* Diagnosis Epigastric pain- Primary Abdominal pain, epigastric Median arcuate ligament syndrome (CMS-HCC) Celiac artery compression syndrome Hiatal hernia Diaphragmatic hernia without mention of obstruction or gangrene documented in this encounter [facility] Work Phone: [phone] note* Diagnosis 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 Neuralgia Unspecified neuralgia, neuritis, and radiculitis documented in this encounter [facility] Work Phone: [phone] note* Diagnosis Abdominal pain, unspecified abdominal location documented in this encounter [facility] Work Phone: [phone] note* Diagnosis Abdominal pain, acute, epigastric documented in this encounter [facility] Work Phone: [phone] note* Diagnosis Median arcuate ligament syndrome- Primary Celiac artery compression syndrome documented in this encounter [facility] Work Phone: [phone] note* Diagnosis Onset Date Resolution Status Admit Date Encounter for screening mammogram for ma lignant neoplasm of breast acuteSeptember 2024 1:36pmWellness examinationacuteSeptember 2024 1:36pm [facility] Work Phone: Evaluation note* Diagnosis Median arcuate ligament syndrome- Primary Celiac artery compression syndrome Median arcuate ligament syndrome Celiac artery compression syndrome Acute post-operative pain documented in this encounter [facility] Work Phone: Evaluation note* Diagnosis Epigastric pain Abdominal pain, epigastric Median arcuate ligament syndrome Celiac artery compression syndrome documented in this encounter [facility] Work Phone: [phone] note* Diagnosis Abdominal pain, acute, epigastric documented in this encounter [facility] Work Phone: Evaluation note* Diagnosis Median arcuate ligament syndrome- Primary Celiac artery compression syndrome documented in this encounter [facility] Work Phone: Evaluation note* Diagnosis Median arcuate ligament syndrome- Primary Celiac artery compression syndrome Intercostal neuritis documented in this encounter [facility] Work Phone: Hospital Discharge instructions No data available for this section [facility] Progress note No data available for this section [facility] Reason for referral (narrative) Referred by: Booker Shelley MD [facility] Reason for referral (narrative)No reason for referral information availableHolzer Hospital Work Phone: Reason for visit Narrative* Imaging (Routine) - AuthorizedSpecialtyDiagnoses / ProceduresReferred By ContactReferred To ContactRadiology Diagnoses Epigastric pain Median arcuate ligament syndrome (CMS-HCC) Procedures [place] pain management Brissa Rain MD [address] [facility] [address] [place] [address] Phone: tel: fax: Referral IDStatusReasonStart DateExpiration DateVisits RequestedVisits [id number] Perform Procedure [facility] Work Phone: Reason for visit Narrative* Consultation (Routine) - AuthorizedSpecialtyDiagnoses / ProceduresReferred By ContactReferred To ContactGeneral Surgery Diagnoses Median arcuate ligament syndrome (CMS-HCC) [place] [address] [facility] [address] [place] [address] Phone: tel: fax: Vee Cruz MD MPH [address] [facility] [place], [facility] [address] [place] [address] Phone: tel: fax: Referral IDStatusReasonStart DateExpiration DateVisits RequestedVisits [id number] Specialty Services Required [facility] Work Phone: reason for visit Narrative* Imaging (Routine) - AuthorizedSpecialtyDiagnoses / ProceduresReferred By ContactReferred To ContactRadiology Diagnoses Abdominal pain, unspecified abdominal location Procedures [place] [address] [facility] [place] [address] Phone: tel: fax: Referral IDStatusReasonStart DateExpiration DateVisits RequestedVisits [id number] Perform Procedure [facility] Work Phone: reason for visit Narrative* Endoscopy (Routine) - AuthorizedSpecialtyDiagnoses / ProceduresReferred By ContactReferred To ContactGastroenterology Diagnoses Abdominal pain, acute, epigastric Procedures Esophagogastroduodenoscopy (EGD) w EndoFlip UT ESOPHAGOGASTRODUODENOSCOPY TRANSORAL DIAGNOSTIC UT EGD TRANSORAL BIOPSY SINGLE/MULTIPLE Bisi Pena MD [address] [facility] [address] [place] [address] Phone: tel: fax: Referral IDStatusReasonStart DateExpiration DateVisits RequestedVisits [id number] [facility] Work Phone: reason for visit Narrative* Auth/CertSpecialty Diagnoses / ProceduresReferred By ContactReferred To Contact Diagnoses Median arcuate ligament syndrome Median arcuate ligament syndrome [I77.4] Procedures UT UNLISTED LAPAROSCOPY PX ABD PERTONEUM & OMENTUM UT UNLISTED LAPAROSCOPY PX ABD PERTONEUM & OMENTUM RELEASE, LIGAMENT, MEDIAN ARCUATE, LAPAROSCOPIC RELEASE, LIGAMENT, MEDIAN ARCUATE, [place] [address] [facility] [address] [place] [address] Phone: tel: fax: [facility] Marga ROBERTS [address] [place] [address] fax: Referral IDStatusReasonStart DateExpiration DateVisits RequestedVisits [id number] [facility] Work Phone: Reason for visit Narrative* Imaging (Routine) - AuthorizedSpecialtyDiagnoses / ProceduresReferred By ContactReferred To ContactRadiology Diagnoses Epigastric pain Median arcuate ligament syndrome Procedures [place] pain management Brissa Rain MD Phone: tel: fax: Referral IDStatusReasonStart DateExpiration DateVisits RequestedVisits [id number] Perform Procedure / [facility] Work Phone: Summary Purpose Family History No Family History [...] FoundNo Family History Records Found Advance Directives Advance Directive Response Recorded Date/ Time Advance Directives No March 03, 2021 9:55am Advance Directive Response Recorded Date/ Time Advance Directives No March 03, 2021 8:55am Date ActivatedDate InactivatedComments01/29/2025 5:50 AMQuestionAnswerComments Plan of Care:* Code Status Discussion Completed Decision Maker:* Patient Date ActivatedDate InactivatedComments01/29/2025 5:50 AMQuestionAnswerComments Plan of Care:* Code Status Discussion Completed Decision Maker:* Patient Chief Complaint and Reason for Visit Chief Complaint Admit Date ESTABLISHED PATIENT January 16, 2025 1:36pm well woman March 18, 2025 9:50am Reason for Visit Admit Date Encounter for screening mamm ogram for malignant neoplasm of breast January 16, 2025 1:36pm Wellness examination January 16 1:36pm Encounter for screening mamm ogram for malignant neoplasm of breast March 18, 2025 9:50am Well woman exam with routine gynecologic al exam March 18, 2025 9:50am Chief Complaint Admit Date ESTABLISHED PATIENT January 16, 2025 1:36pm Reason for Visit Admit Date Encounter for screening mamm ogram for malignant neoplasm of breast January 16, 2025 1:36pm Wellness examination January 16 1:36pm Additional Source Comments INFORMATION SOURCE (unrecogn ized section and content) DATE CREATED AUTHOR 09/20/2022 [facility] DATE CREATED AUTHOR AUTHOR'S ORGANIZ ATION 12/20/2023 [facility] DATE CREATED AUTHOR AUTHOR'S ORGANIZ ATION 12/21/2023 [facility] DATE CREATED AUTHOR AUTHOR'S ORGANIZ ATION 01/21/2024 [facility] DATE CREATED AUTHOR AUTHOR'S ORGANIZ ATION 03/03/2024 [facility] DATE CREATED AUTHOR AUTHOR'S ORGANIZ ATION 03/04/2024 [facility] DATE CREATED AUTHOR AUTHOR'S ORGANIZ ATION 05/02/2024 [facility] DATE CREATED AUTHOR AUTHOR'S ORGANIZ ATION 07/16/2024 [facility] DATE CREATED AUTHOR AUTHOR'S ORGANIZ ATION 09/24/2024 [facility] DATE CREATED AUTHOR AUTHOR'S ORGANIZ ATION 09/24/2024 [facility] DATE CREATED AUTHOR AUTHOR'S ORGANIZ ATION 12/19/2024 [facility] DATE CREATED AUTHOR AUTHOR'S ORGANIZ ATION 12/22/2024 [facility] DATE CREATED AUTHOR AUTHOR'S ORGANIZ ATION 12/28/2024 [facility] DATE CREATED AUTHOR AUTHOR'S ORGANIZ ATION 02/18/2025 [facility] DATE CREATED AUTHOR AUTHOR'S ORGANIZ ATION 02/28/2025 [facility] DATE CREATED AUTHOR AUTHOR'S ORGANIZ ATION 03/20/2025 [facility] Patient Care team informatio n (unrecognized section and content) Team Status: Inactive Member Role Status Dates Samuel Mcdermott DO Attending Provider Active Star t: January 10, 2024 End: January 10, 2024Team MemberRelationshipSpecialtyStart DateEnd Date Rogelio Brown MD [address] [place] [address] PCP - GeneralFamily Medicine12/12/23 Cyndi Epperson NP [address] [place] [address] Nurse PractitionerFamily Medicine12/12/23Team MemberRelationshipSpecialtyStart DateEnd Date Rogelio Brown MD [address] [place] [address] PCP - GeneralFamily Medicine12/12/23 Cyndi Epperson NP [address] [place] [address] Nurse PractitionerFamily Medicine12/12/23Team MemberRelationshipSpecialtyStart DateEnd Date Rogelio Brown MD [address] [place] [address] PCP - GeneralFamily Medicine12/12/23 Cyndi Epperson NP [address] [place] [address] [facility]12/12/23Team MemberRelationshipSpecialtyStart DateEnd Date Rogelio Brown MD [address] [place] [address] PCP - [facility]12/12/23 Cyndi Epperson NP [address] [place] [address] Nurse Pract[facility]erSouth [facility]12/12/23Team MemberRelationshipSpecialtyStart DateEnd Date Rogelio Brown MD [address] [place] [address] PCP - [facility]12/12/23 Cyndi Epperson NP [address] [place] [address] Nurse PractitionerSouth [facility]12/12/23 Team Status: Active Member Role Status Dates Edwardo Mann DO Attending Provider Active Sta rt: February 09, 2024 Team Status: Inactive Member Role Status Dates Weston Isabel MD Attending Provider Active St art: March 27, 2024 End: March 27, 2024Team MemberRelationshipSpecialtyStart DateEnd Date Rogelio Brown MD [address] [place] [address] PCP - [facility]12/12/23 Cyndi Epperson NP [address] [place] [address] [facility]12/12/23Team MemberRelationshipSpecialtyStart DateEnd Date Rogelio Brown MD [address] [place] [address] PCP - [facility]12/12/23 Cyndi Epperson NP [address] [place] [address] Nurse Pract[facility]er[facility]12/12/23Team MemberRelationshipSpecialtyStart DateEnd Date Rogelio Brown MD [address] [place] [address] PCP - [facility]12/12/23 Cyndi Epperson NP [address] [place] [address] Nurse Pract[facility]er[facility]12/12/23Team MemberRelationshipSpecialtyStart DateEnd Date Rogelio Brown MD [address] [place] [address] PCP - [facility]12/12/23 Cyndi Epperson NP [address] [place] [address] Nurse Pract[facility]er[facility]12/12/23Team MemberRelationshipSpecialtyStart DateEnd Date Rogelio Brown MD [address] [place] [address] PCP - Generalmily Medicine12/12/23 Cyndi Epperson NP [address] [place] [address] [facility]12/12/23Team MemberRelationshipSpecialtyStart DateEnd Date Rogelio Brown MD [address] [place] [address] PCP - [facility] Medicine12/12/23 Cyndi Epperson NP [address] [place] [address] Nurse Pract[facility]erSouth [facility]12/12/23Team MemberRelationshipSpecialtyStart DateEnd Date Rogelio Brown MD [address] [place] [address] PCP - [facility]12/12/23 Cyndi Epperson NP [address] [place] [address] Nurse Pract[facility]er[facility]12/12/23Team MemberRelationshipSpecialtyStart DateEnd Date Rogelio Brown MD [address] [place] [address] PCP - [facility]12/12/23 Cyndi Epperson NP [address] [place] [address] Nurse Practitionermily Medicine12/12/23Team MemberRelationshipSpecialtyStart DateEnd Date Rogelio Brown MD [address] [place] [address] PCP - [facility]Kn[facility]12/12/23 Cyndi Epperson NP [address] [place] [address] [facility] Medicine12/12/23Team MemberRelationshipSpecialtyStart DateEnd Date Cyndi Epperson TUFTING MACHINE OPERATOR-AUTOMATION ENGINEERING MANAGER [address] [facility] [place] [address] PCP - General06/18/24Team MemberRelationshipSpecialtyStart DateEnd Date Cyndi Epperson TUFTING MACHINE OPERATOR-AUTOMATION ENGINEERING MANAGER [address] [facility] [place] [address] PCP - General06/18/24Team MemberRelationshipSpecialtyStart DateEnd Date Cyndi Epperson TUFTING MACHINE OPERATOR-AUTOMATION ENGINEERING MANAGER [address] [facility] [place] [address] [phone] PCP - General06/18/24Team MemberRelationshipSpecialtyStart DateEnd Date Cyndi Epperson TUFTING MACHINE OPERATOR-AUTOMATION ENGINEERING MANAGER [address] [facility] [place] [address] PCP - General06/18/24Team MemberRelationshipSpecialtyStart DateEnd Date Cyndi Epperson TUFTING MACHINE OPERATOR-AUTOMATION ENGINEERING MANAGER [address] [place] [address] PCP - General06/18/24Team MemberRelationshipSpecialtyStart DateEnd Date Rogelio Brown MD [address] [place] [id number] [facility] - [facility]23 Cyndi Epperson NP [address] [place] [address] Nurse PractitionerSouth [facility]12/12/23Team MemberRelationshipSpecialtyStart DateEnd Date Cyndi Epperson APRN-CNP [address] [place] [address] PCP - General06/18/24 Team Status: Active Member Role Status Dates Cyndi Epperson Primary Care Provider Active Team Status: Inactive Member Role Status Dates Cyndi Epperson Primary Care Provider Active Sta rt: January 16, 2025 End: January 16, 2025Cyndi Olivoending ProviderActiveStart: January 16, 2025 End: January 16, 2025Team MemberRelationshipSpecialtyStart DateEnd Date Cyndi Epperson APRN-CNP [address] [place] [address] PCP - General06/18/24Team MemberRelationshipSpecialtyStart DateEnd Date Cyndi Epperson APRN-CNP [address] [place] [address] PCP - General06/18/24Team MemberRelationshipSpecialtyStart DateEnd Date Cyndi Epperson APRN-CNP [address] [facility] [place] [address] PCP - General06/18/24Team MemberRelationshipSpecialtyStart DateEnd Date Cyndi Epperson TUFTING MACHINE OPERATOR-AUTOMATION ENGINEERING MANAGER [address] [facility] [place] [address] PCP - General06/18/24Team MemberRelationshipSpecialtyStart DateEnd Date Cyndi Epperson TUFTING MACHINE OPERATOR-AUTOMATION ENGINEERING MANAGER [address] [facility] [place] [address] PCP - General06/18/24Team MemberRelationshipSpecialtyStart DateEnd Date Rogelio Brown MD PCP - GeneralFascly Medicine12/12/23 Cyndi Epperson NP [facility]/12/23 Team Status: Active Member Role/Relationship Status Dates Cyndi Eppersno NP-C Primary Care Provider Active Team Status: Inactive Member Role/Relationship Status Dates Cyndi Epperson NP-C Primary Care Provider Active Start: January 16, 2025 End: January 16, 2025Cyndi Epperson NP-CAtdebbie ProviderActiveStart: January 16, 2025 End: January 16, 2025 Team Status: Inactive Member Role/Relationship Status Dates Cyndi Epperson NP-C Primary Care Provider Active Start: March 18, 2025 End: March 18, 2025Cyndi Epperson NP-CAttending ProviderActiveStart: March 18, 2025 End: March 18, 2025 Team Status: Inactive Member Role/Relationship Status Dates Cyndi Epperson NP-C Primary Care Provider Active Start: January 16, 2025 End: January 16, 2025Roberto Spann ProviderActiveStart: January 16, 2025 End: January 16, 2025 Team Status: Inactive Member Role/Relationship Status Dates PEEWEE Spann Primary Care Provider Active Start: March 18, 2025 End: March 18, 2025Roberto Spann ProviderActiveStart: March 18, 2025 End: March 18, 2025 Team Status: Inactive Member Role/Relationship Status Dates PEEWEE Spann Attending Provider Active Start: March 18, 2025 End: March 18, 2025 Goals (unrecognized section and content) Goals may be documented in a n alternate section Reason for Visit (unrecogniz ed section and content) ReasonCommentsMed RefillReasonCommentsAbdominal PainGI ProblemReasonComments Abdominal PainReasonOnset DateCommentsMed Nqobrd7205/11/2024ReasonCommentsNew Patient VisitNew patient visitReasonCommentsdiaphragm area painReasonComments Follow-upPost Plexus blockReasonCommentsFollow-up Scheduled Active and Recently Administ ered Medications (unrecognized section and content) Medication Order50 acetaminophen (Ofirmev) injection 1,000 mg (CANCELED) 1,000 mg, intravenous, at 400 mL/hr, Administer over 15 Minutes, Every 8 hours, First dose on Tue01/29/25 at 1630, Administer 6 hours after last dose. * 1724 (Not Given - Provider: Mariaa Miles RN - Reason: Other - Comment: received oral tylenol dose) * 2359 (New Bag - Provider: Felecia Norris, DAVID) * 0022 (Stopped - Provider: Felecia Norris RN) acetaminophen (Tylenol) tablet 650 mg 650 mg, oral, Every 6 hours, First dose on Tue01/29/25 at 1645, Phase II/On Unit, If ordered PRN for pain, nurse is permitted to administer this medication for higher pain scores based on patient preference? Yes * 1719 (Given - Provider: Mariaa Miles RN) * 2304 (Not Given - Provider: Felecia Norris RN - Reason: Other) * 0554 (Given - Provider: Felecia Norris RN) * 1045 (Given - Provider: Mariaa Miles RN) * 164 (Due) * 224 (Due) amitriptyline (Elavil) tablet 50 mg 50 mg, oral, Nightly, First dose on Tue01/29/25 at 2100, Phase II/On Unit * 2021 (Given - Provider: Felecia Norris RN) * 2100 (Due) cholecalciferol (Vitamin D-3) tablet 25 mcg 25 mcg, oral, Daily RT, First dose on Tue01/29/25 at 1645, Phase II/On Unit * 1719 (Given - Provider: Mariaa Miles RN) * 0604 (Given - Provider: Felecia Norris RN) cyanocobalamin (Vitamin B-12) tablet 1,000 mcg 1,000 mcg, oral, Daily RT, First dose on Tue01/29/25 at 1645, Phase II/On Unit * 1719 (Given - Provider: Mariaa Miles RN) * 0604 (Given - Provider: Felecia Norris RN) famotidine (Pepcid) tablet 20 mg 20 mg, oral, Daily, First dose on Tue01/29/25 at 1645, Phase II/On Unit * 1719 (Given - Provider: Mariaa Miles RN) * 0845 (Given - Provider: Mariaa Miles RN) heparin (porcine) injection 5,000 Units 5,000 Units, subcutaneous, Every 8 hours, First dose on Tue01/29/25 at 1645, Phase II/On Unit * 1720 (Given - Provider: Mariaa Miles RN) * 2359 (Given - Provider: Felecia Norris RN) * 0845 (Given - Provider: Mariaa Miles RN) * 1645 (Due) ketorolac (Toradol) injection 30 mg (CANCELED) 30 mg, intravenous, Every 8 hours, First dose on Tue01/29/25 at 1645, For 24 hours, Phase II/On Unit * 1720 (Given - Provider: Mariaa Miles RN) * 2359 (Given - Provider: Felecia Norris RN) lidocaine 4 % patch 1 patch 1 patch, transdermal, Administer over 12 Hours, Daily, First dose on Tue01/30/25 at 0900, Apply to abdomen. Patch will remain on for 12 hours, then removed for [address] patch directly over any surgical incisions or wounds. * 0845 (Medication Applied - Provider: Mariaa Miles RN) * 2044 (Due: Medication Removed - Provider: Mariaa Miles RN) magnesium sulfate 1 g in dextrose 5% IV 100 mL (CANCELED) 1 g, intravenous, at 100 mL/hr, Administer over 1 Hours, Every 8 hours, First dose on Tue01/29/25 at 1630, For 3 doses, For 3 doses * 194 (New Bag - Provider: Mariaa Miles RN) * 2051 (Stopped - Provider: Felecia Norris RN) * 235 (New Bag - Provider: Felecia Norris RN) * 0058 (Stopped - Provider: Felecia Norris RN) * 0845 (Not Given - Provider: Mariaa Miles RN - Reason: Other - Comment: order discontinued) methocarbamol (Robaxin) injection 1,000 mg (COMPLETED) 1,000 mg, intravenous, Administer over 5 Minutes, Once, On Tue01/29/25 at 1145, For 1 dose, Recovery (only) * 1119 (Given - Provider: Briseida Harry RN) methocarbamol (Robaxin) tablet 500 mg 500 mg, oral, Every 6 hours scheduled, First dose on Tue01/30/25 at 0745 * 0845 (Given - Provider: Mariaa Miles RN) * 1200 (Due) * 1800 (Due) ondansetron ODT (Zofran-ODT) disintegrating tablet 4 mg 4 mg, oral, Every 6 hours, First dose on Tue01/29/25 at 1645, Phase II/On Unit * 1719 (Given - Provider: Mariaa Miles RN) * 2304 (Given - Provider: Felecia Norris RN) * 0554 (Given - Provider: Felecia Norris RN) * 1045 (Given - Provider: Mariaa Miles RN) * 1645 (Due) * 2245 (Due) pantoprazole (ProtoNix) EC tablet 40 mg 40 mg, oral, Daily before breakfast, First dose on Tue01/30/25 at 0700, Phase II/On Unit, Do not crush, chew, or split. * 0604 (Given - Provider: Felecia Norris RN) polyethylene glycol (Glycolax, Miralax) packet 17 g 17 g, oral, Daily, First dose on Tue01/29/25 at 1645, Phase II/On Unit, Bowel Regimen - for prevention of constipation. * 1719 (Given - Provider: Mariaa Miles RN) * 0845 (Given - Provider: Mariaa Miles RN) scopolamine (Transderm-Scop) patch 1 patch (CANCELED) 1 patch, transdermal, Administer over 72 Hours, Once, On Tue01/29/25 at 0615, For 1 dose, Preprocedure, Wash hands before and after application to avoid drug contact with eyes. Apply to hairless areaof skin behind the ear. Once patch has been affixed behind ear, do not touch while being worn. * 0631 (Medication Applied - Provider: Veronica Edward RN) * 1721 (Medication Removed - Provider: Mariaa Milse RN - Comment: Time automatically adjusted fromorder being discontinued) scopolamine (Transderm-Scop) patch 1 patch 1 patch, transdermal, Administer over 72 Hours, Every 72 hours, First dose on Tue01/29/25 at 1645, Phase II/On Unit, Wash hands before and after application to avoid drug contact with eyes. Apply to hairless area of skin behind the ear. Once patch has been affixed behind ear, do not touch while being worn. * 1732 (Medication Applied - Provider: Mariaa Miles RN) Medication Order// lactated Ringer's infusion (CANCELED) 75 mL/hr, intravenous, Continuous, Starting on Tue01/29/25 at 1645, For 1 day, Phase II/On Unit * 1725 (New Bag - Provider: Mariaa Miles RN) * 0633 (Stopped - Provider: Felecia Norris RN - Comment: [Order ends at this time. Document the following action when infusion is complete: Stopped]) Medication Order09/22/ BUPivacaine HCl (Marcaine) 0.25 % (2.5 mg/mL) injection (CANCELED) As needed, Starting on Tue01/29/25 at 0851, Intraprocedure * 0851 (Given - Provider: Vee Cruz MD MPH) bupivacaine PF 0.25 % (Marcaine) 0.25 % (2.5 mg/mL) 20 mL, lidocaine-epinephrine (Xylocaine W/EPI) 2 %-1:100,000 20 mL, triamcinolone acetonide (Kenalog-40) 40 mg/mL 1 mL syringe (CANCELED) As needed, Starting on Tue01/29/25 at 0912, Intraprocedure * 0912 (Given - Provider: Hossein Potter MD) dicyclomine (Bentyl) capsule 10 mg 10 mg, oral, Every 6 hours PRN, abdominal discomfort, Starting on Tue01/29/25 at 1627, Phase II/On Unit HYDROmorphone (Dilaudid) injection 0.2 mg (CANCELED) 0.2 mg, intravenous, Every 4 hours PRN, pain breakthrough, Starting on Tue01/29/25 at 1613 * 2021 (Given - Provider: Felecia Norris RN) HYDROmorphone (Dilaudid) injection 0.5 mg (CANCELED) 0.5 mg, intravenous, Every 5 min PRN, pain severe (7-10), first line, Starting on Tue01/29/25 at 1025, Recovery (only), Max total of 4 mg regardless of dose. * 1027 (Given - Provider: Briseida Harry RN) * 1046 (Given - Provider: Briseida Harry RN) * 1504 (Given - Provider: Briseida Harry RN) lidocaine 4 % patch 1 patch (CANCELED) 1 patch, transdermal, Administer over 12 Hours, 4 times daily PRN, pain mild (1- 3), first line, Starting on Tue01/29/25 at 1613, Apply to abdomen. Patch will remain on for 12 hours, then removed for [address] patch directly over any surgical incisions or wounds. * 1720 (Medication Applied - Provider: Mariaa Miles RN) * 0424 (Medication Removed - Provider: Felecia Norris RN) naloxone (Narcan) injection 0.2 mg 0.2 mg, intravenous, Every 5 min PRN, respiratory depression, Starting on Tue01/29/25 at 1627, Phase II/On Unit, If respiratory rate is less than 8 breaths/minute or patient is difficult to arouse stop any narcotics and contact physician. Administer slow IV push. Repeat as ordered until patient's re spiratory rate is greater than 12 breaths/minute. oxyCODONE (Roxicodone) immediate release tablet 10 mg 10 mg, oral, Every 6 hours PRN, pain severe (7-10), first line, Starting on Tue01/30/25 at 0720, Ifordered PRN for pain, nurse is permitted to administer this medication for higher pain scores basedon patient preference? Yes oxyCODONE (Roxicodone) immediate release tablet 5 mg 5 mg, oral, Every 4 hours PRN, pain moderate (4-6), first line, Starting on Tue01/30/25 at 0719, Ifordered PRN for pain, nurse is permitted to administer this medication for higher pain scores basedon patient preference? Yes sodium chloride 0.9 % irrigation solution (CANCELED) As needed, Starting on Tue01/29/25 at 0851, Intraprocedure * 0851 (Given - Provider: Hossein Potter MD - Comment: IRRIGATION) FOR RECORDS PERTAINING TO PATIENTS WHO ARE [...] BE BASED ON THE PRIMARY CLINICAL RECORDS. [employer] provides no warranty or guarantee of the accuracy or completeness of information in this document.
--- OUTSIDE RECORDS SUMMARY | 2025-04-19 08:06 | XMS_ITS | Clinical Summary ---
Author Organization [facility] Address [address] [place] [address] Care Team Providers Care Production Control Technologist Name Role Phone Rogelio Brown MD Primary Care Provider [phone] Cyndi Epperson NP Unavailable [phone] Allergies Active AllergyReactionsCriticalityNoted JmpmEcvcyejaHbbuskyjsckMcfaf74/15/2024 Penicillin JYzgdLnd31/15/2024Oxycodone-AcetaminophenGI mdconlqtaze45/15/2024 Nausea, vomiting, and dizziness Medications MedicationSigDispense QuantityRefillsLast FilledStart DateEnd DateStatus ondansetron (Zofran) 4 MG tablet Take 4 mg by mouth every 8 (eight) hours if needed for nausea or vomiting 03/17/2024ctive amitriptyline (Elavil) 50 MG tablet Take 50 mg by mouth at pisvwzd5403/09/2024ctive dicyclomine (Bentyl) 20 MG tablet Take 20 mg by mouth every 12 (twelve) hours if needed (abd cramping)Active cyanocobalamin (Vitamin B-12) 1000 MCG tablet Take 1,000 mcg by mouth DailyActive cholecalciferol (Vitamin D-3) 25 MCG (1000 UT) tablet Indications:Vitamin D DeficiencyTake 1,000 Units by mouth DailyActive omeprazole (PriLOSEC) [address] capsule Indications:Pain of upper abdomenTake 1 capsule (20 mg) by mouth in the morning and 1 capsule (20 mg) in the evening. Take before meals. 60 capsule 5Active Active Problems ProblemNoted DateDiagnosed DateFamily history of pancreatic tkpjsm7203/28/2024 Gastroesophageal reflux uoribuq5003/28/20246222Mkfzbsgbt59/20/2024Elevated antinuclear antibody (SERA) level03/01/2024 Assessment & Plan (04/30/2024 9:39 AM EST): [...] 12:48 PM EST): Continue with Rheumatology Chest /16/2024 Assessment & Plan (02/22/2024 4:27 PM EDT): Reviewed CT chest and labs ?GI source, anxiety?? Encounter for screening mammogram for malignant neoplasm of iimghh6001/11/2024ain of upper kefunjt1412/22/2023 Assessment & Plan (04/30/2024 9:40 AM EST): [...] 01/02/[address] rouse Abnormal jfgmhsylx99/15/2030Dtpvthlqjxeb57/15/2784Xldhchmohhtwo05/15/2024Iron hhzkjpoezg94/15/2024Myogenic zcbrvq0012/22/2023Ocular yrwomvywaeyx41/15/2024anic deruhf6012/22/2023 Assessment & Plan (02/22/2024 4:26 PM EDT): Cause of chest pain?? Enlarged liver12/22/2023 Assessment & Plan (12/22/2023 4:56 PM EDT): No acute findings, and doubtful that this is causing her abd pain Keep GI appt for 01/02/24 Immunizations ImmunizationAdministration DatesNext DueInfluenza, Juwvbkkmlwv38/24/2014 Influenza, seasonal, gwouorcpkc59/24/2014Pfizer Purple Cap SARS-CoV-2 Sgjilrszirc94/17/2021,03/04/2021Tdap09/14/2012 Family History Medical HistoryRelationNameCommentsDiabetesBrotherEberMental illnessBrotherEber CancerMotherLindaRelationNameStatusCommentsBrotherEberMotherLinda Social History Tobacco UseTypesPacks/DayYears UsedDateSmoking Tobacco: FormerCigarettesQuit: mokeless Tobacco: Never Tobacco Cessation:Counseling Given: Not Answered Alcohol UseStandard Drinks/WeekCommentsNot Currently0 (1 standard drink = 0.6 oz pure alcohol)caffine: 1 cup of coffee dailyFinmountain view hospital [facility] - Occupational Stress QuestionnaireAnswerDate RecordedDo you feel stress - tense, restless, nervous, or anxious, or unable to sleep at night because your mind is troubled all the time - these days?Patient qxooxiov65/23/2024 CommentsUnknownSex and Gender InformationValueDate RecordedSex Assigned at Mknbiz3612/22/2023 8:58 AM EDTLegal DjdRihelc15/15/2023 11:21 PM EDTGender RgokrnwgLhtxkm30/15/2024 8:58 AM EDTSexual TafmovgxhnxIdajmavo13/15/2024 8:58 AM EDT Last Filed Vital Signs Vital SignReadingTime TakenCommentsBlood Kmzrscxw724/8204/30/2024 9:05 AM EST Qjbra027804/30/2024 9:05 AM MUOJbgamazstuk36.9 ??C (98.5 ??F)04/30/2024 9:05 AM ESTRespiratory Guzl955307/01/2023 9:05 AM ESTOxygen Ditwtdmydn234%04/30/2024 9:05 AM ESTInhaled Oxygen Concentration--Loamka25.9 kg (129 lb 12.8 oz)04/30/2024 9:05 AM MTCZrfuis538.5 cm (5' 7.5 )04/30/2024 9:05 AM ESTBody Mass Index20.03 04/30/2024 9:05 AM EST Plan of Treatment Not on file Insurance Care Teams Team MemberRelationshipSpecialtyStart DateEnd Date Rogelio Brown MD PCP - GeneralFamily Medicine12/12/23 Cyndi Epperson NP Nurse PractitionerFamily Medicine12/12/23
--- OUTSIDE RECORDS SUMMARY | 2025-04-19 08:06 | XMS_ITS | Clinical Summary ---
Author Organization [facility] Address [address] [place] [address] Care Team Providers Care Study Lead Name Role Phone Unavailable Primary Care Provider Unavailabl e Allergies Active AllergyReactionsCriticalityNoted DateCommentsAmoxicillinAnaphylaxisHigh 02/29/20248892NwszrgzvtdeNwvnzddqehmPfqb34/23/2024 Medications MedicationSigDispense QuantityRefillsLast FilledStart DateEnd DateStatus omeprazole OTC (PriLOSEC OTC) 20 mg EC tablet Take 20 mg by mouth before breakfast. Do not crush, chew, or split.Active dicyclomine (Bentyl) 10 mg capsule Take 10 mg by mouth three times daily.Active ondansetron (Zofran) 4 mg tablet Take 4 mg by mouth every 8 (eight) hours if needed for nausea or vomiting.Active amitriptyline (Elavil) 25 mg tablet Take 25 mg by mouth at bedtime.Active Social History Tobacco UseTypesPacks/DayYears UsedDateSmoking Tobacco: Never AssessedSmokeless Tobacco: Never Tobacco Cessation:Counseling Given: Not Answered PHQ-2AnswerDate RecordedPatient Health Questionnaire-2 Dhroj682/23/2024 CommentsUnknownSex and Gender InformationValueDate RecordedSex Assigned at Not on fileLegal EyjIetulr53/23/2024 10:18 AM EDTGender IdentityNot on file Sexual OrientationNot on file Last Filed Vital Signs Vital SignReadingTime TakenCommentsBlood Pressure--Pulse--Temperature-- Respiratory Rate--Oxygen Saturation--Inhaled Oxygen Concentration--Hxsgvb38.1 kg (128 lb)02/29/2024 10:30 AM EDTHeight--Body Mass Index-- Plan of Treatment Health MaintenanceDue DateLast DoneCommentsCT Cavrqtxuqtqv63/17/1979FIT-DNA 1978FIT1978FOBT1978 6605Xmlksxrizrwol84/17/1979Depression Screening 1990Hepatitis B Vaccines (1 of 3 - 19+ 3-dose series)1997Pap Smear 11/23/1999Cervical Cancer Vxmfwgocb03/17/2009HPV/Lviewu2611/22/2008dult Tetanus /01/2013COVID-19 Vaccine ( season), 03/04/2021Influenza Vaccine (#1)/7014Ecgjwgjmt33/23/2026 01/30/2024Zoster Vaccines (1 of 2)11/22/20285307Uddmywemncb53/03/203409/07/2023 Colorectal Cancer Qkgoffajy51/03/2034HIB VaccinesAged OutNo longer eligible based on patient's age to complete this topicHPV VaccinesAged OutNo longer eligible based on patient's age to complete this topicIPV VaccinesAged OutNo longer eligible based on patient's age to complete this topicMeningococcal B VaccineAged OutNo longer eligible based on patient's age to complete this topic Meningococcal VaccineAged OutNo longer eligible based on patient's age to complete this topicPneumococcal Vaccine: Pediatrics (0 to 5 Years) and At-Risk Patients (6 to 64 Years)Aged OutNo longer eligible based on patient's age to complete this topicRotavirus VaccinesAged OutNo longer eligible based on patient's age to complete this topic Insurance [place] [id number]
--- OUTSIDE RECORDS SUMMARY | 2025-04-19 08:06 | XMS_ITS | Clinical Summary ---
Author Organization [facility] Address [id number] [place] [address] Care Team Providers Care Diamond Grader Name Role Phone Unavailable Primary Care Provider Unavailabl e Social History Tobacco UseTypesPacks/DayYears UsedDateSmoking Tobacco: Never AssessedChildcare AnswerDate BbdzeosnXshaaoesnYmcofjl58/12/2019EmploymentAnswerDate Recorded RctqqsmmiuQdhotye41/12/2019CommentsUnknownSex and Gender Information ValueDate RecordedSex Assigned at BirthNot on fileLegal CnxZzludx49/06/2015 12:12 PM EDTGender IdentityNot on fileSexual OrientationNot on file Plan of Treatment Health MaintenanceDue DateLast DoneCommentsDepression Xjnzoytjn76/17/1991Tobacco Itxiynhdr24/17/1991Adult BMI Psjwcyzov44/17/1997DTaP,Tdap and Td Vaccines (1 - Tdap)1997Pap SmearInfluenza Hdjcdsc0701/07/2025 Medical Devices Not on file Procedures Procedure NamePriorityDate/TimeAssociated DiagnosisCommentsHIGH RISK HPV W/INEZ Qcajbwm0608/19/2014 12:00 PM EDT from Last 3 Months or Most Recently Relevant to Health Maintenance Results * High risk HPV w/inez (08/19/2014 12:00 PM EDT)ComponentValueRef RangeTest MethodAnalysis TimePerformed AtPathologist SignatureHpv specimen typeThinPrep 08/20/2014 2:32 PM EDTSUNQUESTHpv 51EdknwjcjEtaiwzsu44/15/2015 2:55 PM EDT SUNQUESTHpv 54TuhybvluCrwaaujl81/15/2015 2:55 PM EDTSUNQUESTOther high risk mpcNauvuymfIvaitwqq90/15/2015 2:55 PM EDTSUNQUESTComment: HPV types 31,33,35,39,45,52,56,58,59,66 and 68 DNA were undetectable. Specimen (Source)Anatomical Location / LateralityCollection Method / Volume Collection TimeReceived Time08/19/2014 12:00 PM EDT08/20/2014 2:27 PM EDT Narrative Authorizing ProviderResult TypeResult StatusConversion Provider BOOM BLOOD ORDERABLESFinal ResultPerforming OrganizationAddressCity/State/ZIP CodePhone Number SUNQUEST from Last 3 Months or Most Recently Relevant to Health Maintenance
--- OUTSIDE RECORDS SUMMARY | 2025-04-19 08:06 | XMS_ITS | Clinical Summary ---
Author Organization [facility] Address [address] [place] [address] Phone Care Team Providers Care Manager [employer] Name Role Phone Cyndi Epperson APRN-PROJECT MANAGER SENIOR Primary Care Provider Allergies Active AllergyReactionsCriticalityNoted DateCommentsOpioids - Morphine Analogues Nausea/nokvfplhYynqxt43/07/2024Oxycodone-AcetaminophenGI bpfzoeeruql12/15/2024 Nausea, vomiting, and dizziness PenicillinsAnaphylaxis,Hives,Rash,JjtvrxnNyfa51/29/2015Pilocarpine Nausea/ndzfvpla88/31/2025 Medications MedicationSigDispense QuantityRefillsLast FilledStart DateEnd DateStatus amitriptyline (Elavil) 50 mg tablet Take 1 tablet (50 mg) by mouth once daily at bedtime.Active ondansetron ODT (Zofran-ODT) 4 mg disintegrating tablet Dissolve 1 tablet (4 mg) in the mouth every 8 hours if needed.12/20/2023ctive omeprazole (PriLOSEC) [address] capsule Take 1 capsule (40 mg) by mouth once daily.Active dicyclomine (Bentyl) 10 mg capsule Take 1 capsule (10 mg) by mouth every 6 hours if needed.Active cyanocobalamin (Vitamin B-12) 1,000 mcg tablet Take 1 tablet (1,000 mcg) by mouth once daily.Active cholecalciferol (Vitamin D-3) 25 MCG (1000 UT) tablet Take 1 tablet (1,000 Units) by mouth once daily.Active famotidine (Pepcid) 20 mg tablet Take 1 tablet (20 mg) by mouth once daily.Active methocarbamol (Robaxin) 500 mg tablet Indications:Acute post-operative painTake 1 tablet (500 mg) by mouth every 6 hours if needed for muscle spasms. 20 tablet 11:09 AM EDT5Active oxyCODONE (Roxicodone) 5 mg immediate release tablet Indications:Acute post-operative painTake 1 tablet (5 mg) by mouth every 6 hours if needed for severe pain (7 - 10). 20 tablet 01/30/2025 11:09 AM EDT5Active Additional Information Patient not taking.Reported on 02/13/2025 docusate sodium (Colace) 100 mg capsule Indications:Acute post-operative painTake 1 capsule (100 mg) by mouth 2 times a day. To prevent constipation while taking narcotics 20 capsule 01/30/2025 11:09 AM EDT5Active lidocaine (Lidoderm) 5 % patch Indications:Intercostal neuritisPlace 1 patch over 12 hours on the skin once daily. Remove & discard patch within 12 hours or as directed by MD. 30 patch 6Active Active Problems ProblemNoted DateDiagnosed DateMedian arcuate ligament bmoradyb14/17/2025 Gastroesophageal reflux xlsrntw3806/15/2024Elevated antinuclear antibody (SERA) level4Chest ryjtobjjx53/16/2024typical chest pain02/21/2024ysphagia 4Abnormal xsgxyqpla91/15/2024Enlarged liver12/22/2023Myogenic ptosis 12/22/2023Ocular lqsqlswejptd63/15/2024ain of upper kmlmycf6812/22/2023 Overview (06/15/2024): Outside Source Comment: Last Assessment & Plan: Cont omeprazole and anti spasmodic Has GI appt 01/19/24, Unclear etiology: I do not think all related to HH, ?IBS? ??anxiety Will fu in 6 weeks Panic xtytie4912/22/20232864Yidebhbxmneet79/22/2022bdominal pain03/30/2022 Overview (06/15/2024): Comment on above: Outside Source Comment: Last Assessment & Plan: Cont omeprazole and anti spasmodic Has GI appt 01/19/24, Unclear etiology: I do not think all related to HH, ?IBS? ??anxiety Will fu in 6 weeks Iron vpocbooaix95/01/1791Uioclinaudas05/26/2022 Encounters DateTypeDepartmentCare RpbzTclrjlpqkok30/21/2025 3:15 PM EDTOffice Visit [facility] [address] [place] [address] Hossein Potter MD Median arcuate ligament syndrome (Primary Dx); Intercostal neuritis Discharge Disposition: Home02/26/20250904Hmalev29/08/2025 12:30 PM EDTOffice Visit [facility] [address] [place] [address] Vee Cruz MD MPH Median arcuate ligament syndrome (Primary Dx) Discharge Disposition: Home02/13/20255040Mtcfeo32/01/2025Telephone [facility] [address] [facility] 6th [place] [address] Vee Cruz MD MPH Grsjcuivarw11/23/2025 7:31 AM EDTAnesthesia Event [facility] [place] [address] [place] [address] Nasima Valladares MD Carlson, Daniel 01/29/2025 7:00 AM EDT - 01/29/2025 11:00 AM EDTSurgery [facility] [place] [place] [address] [place] [address] Hossein Potter MD RELEASE, LIGAMENT, MEDIAN ARCUATE, LAPAROSCOPIC [[id number] (CPT??)]01/29/2025 5:36 AM EDT - 01/30/2025 1:02 PM EDTHospital Encounter [facility] [address] [place] [address] Vee Cruz MD MPH Median arcuate ligament syndrome (Primary Dx); Acute post-operative pain Discharge Disposition: Home01/29/2025Travelfrom Last 3 Months Immunizations ImmunizationAdministration DatesNext DueInfluenza, seasonal, injectable 06/01/2013Tdap vaccine, age 7 year and older (BOOSTRIX, ADACEL)09/14/2012 Family History Medical HistoryRelationNameCommentsHeart attackFatherEberHeart attackMotherLinda Irritable bowel syndromeSisterVickyRelationNameStatusCommentsFatherEberAlive MotherLindaAliveSisterVickyAlive Social History Tobacco UseTypesPacks/DayYears UsedDateSmoking Tobacco: FormerCigarettesPassive Smoke Exposure: NeverSmokeless Tobacco: Never Tobacco Cessation:Counseling Given: Not Answered Alcohol UseStandard Drinks/WeekCommentsNot Currently0 (1 standard drink = 0.6 oz pure alcohol)PHQ-2AnswerDate RecordedPatient Health Questionnaire-2 Score0 02/26/2025Humiliation, Afraid, Rape, and Kick questionnaireAnswerDate Recorded Within the last year, have you been afraid of your partner or ex-partner?Patient utucyzbz23/23/2025Within the last year, have you been humiliated or emotionally abused in other ways by your partner or ex-partner?Patient bbuvpivx85/23/2025 Within the last year, have you been kicked, hit, slapped, or otherwise physically hurt by your partner or ex-partner?Patient bpvyzmqc52/23/2025Within the last year, have you been raped or forced to have any kind of sexual activity by your partner or ex-partner?Patient gfnauglz99/23/2025UDIT-CAnswerDate RecordedQ1: How often do you have a drink containing alcohol?Never01/29/2025Q2: How many drinks containing alcohol do you have on a typical day when you are drinking?Patient does not drink01/29/2025Q3: How often do you have six or more drinks on one occasion?Never01/29/2025Overall Financial Resource Strain (CARDIA) AnswerDate RecordedHow hard is it for you to pay for the very basics like food, housing, medical care, and heating?Patient tyqqgsbz20/23/2025Hunger Vital Sign AnswerDate RecordedWithin the past 12 months, you worried that your food would run out before you got the money to buymore.Patient dmfjaizj67/23/2025Within the past 12 months, the food you bought just didn't last and you didn't have money to get more.Patient xioxzvpq82/23/2025PRAPARE - TransportationAnswerDate RecordedIn the past 12 months, has lack of transportation kept you from medical appointments or from getting medications?Patient dxcnilsf50/23/2025In the past 12 months, has lack of transportation kept you from meetings, work, or from getting things needed for daily living?Patient fxukmuzm39/23/2025Housing Stability Vital SignAnswerDate RecordedIn the last 12 months, was there a time when you were not able to pay the mortgage or rent on time?Patient declined 01/29/2025In the past 12 months, how many times have you moved where you were living?t any time in the past 12 months, were you homeless or living in a residential (including now)?Patient cmrbrgeg48/23/2025HC UtilitiesAnswerDate RecordedIn the past 12 months has the [employer], gas, oil, or water [employer] threatened to shut off services in your home?Patient yjzfnzcl83/23/2025 CommentsNoSex and Gender InformationValueDate RecordedSex Assigned at Bgmpwp3901/29/2025 5:58 AM EDTLegal KjcFxdtcw10/26/2022 1:31 AM ESTGender Identity Nzpmpm8501/29/2025 5:58 AM EDTSexual ArdnkinhdkdJvuakpwd56/23/2025 5:58 AM EDT Last Filed Vital Signs Vital SignReadingTime TakenCommentsBlood Siuixito304/8010 3:56 PM EDT Pljwe1384 3:56 PM VKGWybfaarwxkk43.3 ??C (97.3 ??F)01/30/2025 11:17 AM EDTRespiratory Pwtk819401/30/2025 11:17 AM EDTOxygen Qfwycncfvb46%01/30/2025 11:17 AM EDTInhaled Oxygen Concentration--Lmiedb06 kg (139 lb)02/26/2025 3:56 PM EDT Cehmkk058.2 cm (5' 7 )02/26/2025 3:56 PM EDTBody Mass Index21.7702/26/2025 3:56 PM EDT Plan of Treatment DateTypeDepartmentCare Team (Latest Contact Info)Tciscnevntz67/16/2025 10:00 AM ESTAncillary Procedure [facility] [address] [place] [address] 04/23/2025 11:30 AM ESTOffice Visit [facility] [address] [place] [address] [place] [address] [place], [place] [id number] Health MaintenanceDue DateLast DoneCommentsCT Oswgjpurtbkt56/17/1979FIT-DNA (Cologuard)1978FIT1978HIV Cwaycever16/17/1979Lipid Panel1978 Eongyixkjbwfk31/17/1979Yearly Adult Truahaom08/17/1979MMR Vaccines (1 of 1 - Standard series)11/23/1979Hepatitis C Ymqcinfby24/17/1997Hepatitis A Vaccines (1 of 2 - Risk 2-dose series)1997Hepatitis B Vaccines (1 of 3 - 19+ 3-dose series)1997DTaP/Tdap/Td Vaccines (2 - Td or Tdap)/01/2013 Influenza Vaccine (#1)/COVID-19 Vaccine ( - season) 01/07/20254892Pbmdcgfgr87Zoster Vaccines (1 of 2)2028 Clsbcmkiwuv00/03/203409/4Colorectal Cancer Pzwjreban47/03/2034HIB Vaccines Aged OutNo longer eligible based on patient's age to complete this topicHPV VaccinesAged OutNo longer eligible based on patient's age to complete this topic IPV VaccinesAged OutNo longer eligible based on patient's age to complete this topicMeningococcal VaccineAged OutNo longer eligible based on patient's age to complete this topicPneumococcal Vaccine: Pediatrics and At-Risk Adult Patients Aged OutNo longer eligible based on patient's age to complete this topic Rotavirus VaccinesAged OutNo longer eligible based on patient's age to complete this topic Procedures Procedure NamePriorityDate/TimeAssociated DiagnosisCommentsMAGNESIUMRoutine 01/30/2025 5:10 AM EDT BASIC METABOLIC SWHIYRcsrvcz91/24/2025 5:10 AM EDT TOHKuajgzw26/24/2025 5:09 AM EDT PATH REVIEW-JADIPAQFPQYTSJJESpoijnj04/23/2025 1:39 PM EDT BB ORDER ONLY - ANTIBODY WVTASLLAGBAJMZZylsgcz91/23/2025 1:39 PM EDT TYPE AND BKMFGMGxenjmx89/23/2025 1:39 PM EDT SURGICAL PATHOLOGY PADZLshvleq62/23/2025 9:05 AM EDT Median arcuate ligament syndrome ANESTHESIA ARTERIAL LINE IOYWPUJOWZwmuqxb93/23/2025 7:52 AM EDT ANESTHESIA PERIPHERAL IV MQJWWKLPNUklcgdz80/23/2025 7:50 AM EDT ANESTHESIA PERIPHERAL IV SGFBLSLSAMdeijqa96/23/2025 7:41 AM EDT NE AN ELECTIVE ENDOTRACHEAL QMHERFPdlclfm62/23/2025 7:40 AM EDT NE UNLISTED LAPAROSCOPY PX ABD PERTONEUM & ZPDTDNO0601/29/2025 7:15 AM EDT Median arcuate ligament syndrome NE UNLISTED LAPAROSCOPY PX ABD PERTONEUM & JDGOETP0501/29/2025 7:15 AM EDT Median arcuate ligament syndrome VERAB/VERIFY RVDMLLsxljhy51/ 6:10 AM EDT TYPE AND FFNBEOJjgfr85/23/2025 6:06 AM EDT PULSE OXIMETRY, WHQESzdipfl11/23/2025 5:50 AM EDTfrom Last 3 Months Results * (ABNORMAL) Magnesium (01/30/2025 5:10 AM EDT)ComponentValueRef RangeTest MethodAnalysis TimePerformed AtPathologist SignatureMagnesium2.52(H)1.60 - 2.40 mg/dL LAB CHEMISTRY METHOD 01/30/2025 6:37 AM [facility] LABSpecimen (Source)Anatomical Location / Laterality Collection Method / VolumeCollection TimeReceived TimeBloodVenous blood specimen / UnknownVenipuncture / Dlayhky3401/30/2025 5:10 AM EDT01/30/2025 5:52 AM EDT Narrative Authorizing ProviderResult TypeResult StatusVee Cruz MD [facility] BLOOD ORDERABLESFinal ResultPerforming OrganizationAddressCity/State/ZIP CodePhone Number [facility] [address] [place] [address] * (ABNORMAL) Basic metabolic panel (01/30/2025 5:10 AM EDT)ComponentValueRef RangeTest MethodAnalysis TimePerformed AtPathologist TjegmkgunMjomdwb191(H)74 - 99 mg/dL LAB CHEMISTRY METHOD 01/30/2025 6:37 [facility] TVBNakpuh284900 - 145 mmol/L LAB CHEMISTRY METHOD 01/30/2025 6:37 AM [facility] LABPotassium4.03.5 - 5.3 mmol/L LAB CHEMISTRY METHOD 01/30/2025 6:37 [facility] TEUJnoobtgp99639 - 107 mmol/L LAB CHEMISTRY METHOD 01/30/2025 6:37 [facility] XNFXpckevqmqyw6390 - 32 mmol/L LAB CHEMISTRY METHOD 01/30/2025 6:37 AM [facility] LABAnion Gap9(L)10 - 20 mmol/L LAB CHEMISTRY METHOD 01/30/2025 6:37 AM [facility] LABUrea Uirdygvz824 - 23 mg/dL LAB CHEMISTRY METHOD 01/30/2025 6:37 AM [facility] LABCreatinine0.690.50 - 1.05 mg/dL LAB CHEMISTRY METHOD 01/30/2025 6:37 AM [facility] LABeGFR>90>60 mL/min/1.73m*2 LAB CHEMISTRY METHOD 01/30/2025 6:37 AM [facility] LABComment: Calculations of estimated GFR are performed using the 2020 CKD-EPI Study Refit equation without therace variable for the IDMS-Traceable creatinine methods. https://jasn.asnjournals.org/content/early//ASN.2339698872 Calcium8.4(L)8.6 - 10.6 mg/dL LAB CHEMISTRY METHOD 01/30/2025 6:37 AM [facility] LABSpecimen (Source)Anatomical Location / Laterality Collection Method / VolumeCollection TimeReceived TimeBloodVenous blood specimen / UnknownVenipuncture / Hdbwrml0201/30/2025 5:10 AM EDT01/30/2025 5:52 AM EDT Narrative Authorizing ProviderResult TypeResult StatusVee Cruz MD MPHLAB BLOOD ORDERABLESFinal ResultPerforming OrganizationAddressCity/State/ZIP CodePhone Number [facility] [address] [place], [place] [phone] * (ABNORMAL) CBC (01/30/2025 5:09 AM EDT)ComponentValueRef RangeTest Method Analysis TimePerformed AtPathologist SahymhcjvQLB83.8(H)4.4 - 11.3 x10*3/uL LAB HEMATOLOGY METHOD 01/30/2025 6:11 AM [facility] LABnRBC0.00.0 - 0.0 /100 WBCs LAB HEMATOLOGY METHOD 01/30/2025 6:11 AM [facility] LABRBC3.75(L)4.00 - 5.20 x10*6/uL LAB HEMATOLOGY METHOD 01/30/2025 6:11 AM [facility] TMXRnqbluzhpu21.9(L)12.0 - 16.0 g/dL LAB HEMATOLOGY METHOD 01/30/2025 6:11 AM [facility] GQMBduucyvanl01.8(L)36.0 - 46.0 % LAB HEMATOLOGY METHOD 01/30/2025 6:11 AM [facility] SZRDPB4625 - 100 fL LAB HEMATOLOGY METHOD 01/30/2025 6:11 AM [facility] MGVKDC75.726.0 - 34.0 pg LAB HEMATOLOGY METHOD 01/30/2025 6:11 AM [facility] UJUKZFH84.232.0 - 36.0 g/dL LAB HEMATOLOGY METHOD 01/30/2025 6:11 AM [facility] ERBRCW89.011.5 - 14.5 % LAB HEMATOLOGY METHOD 01/30/2025 6:11 AM [facility] PFFSecropqho211(L)150 - 450 x10*3/uL LAB HEMATOLOGY METHOD 01/30/2025 6:11 AM [facility] LABSpecimen (Source)Anatomical Location / Laterality Collection Method / VolumeCollection TimeReceived TimeBloodVenous blood specimen / UnknownVenipuncture / Sbcetec7001/30/2025 5:09 AM EDT01/30/2025 5:53 AM EDT Narrative Authorizing ProviderResult TypeResult StatusVee Cruz MD [facility] BLOOD ORDERABLESFinal ResultPerforming OrganizationAddressCity/State/ZIP CodePhone Number [place] [phone] * Path Review-Immunohematology (01/29/2025 1:39 PM EDT)ComponentValueRef Range Test MethodAnalysis TimePerformed AtPathologist SignaturePATH REV-IMMUNOHEMATOLOGYAntibody detection screen is positive. Antibody identification panel was performed. The autocontrol is negative. Anti-D is identified. 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 All other common clinically significant alloantibodies have been ruled out. Full crossmatched D-antigen negative donor RBC units should be selected for transfusion for this patient.02/01/2025 10:24 PM [facility] BLOOD BANKComment: . By the signature on this report, the individual or group listed as making the Final Interpretation/Diagnosis certifies that they have reviewed this case. Specimen (Source)Anatomical Location / LateralityCollection Method / Volume Collection TimeReceived TimeBloodVenous blood specimen / UnknownArterial Line / Fracxhx6701/29/2025 1:39 PM EDT01/29/2025 2:20 PM EDT Narrative Authorizing ProviderResult TypeResult StatusVee Cruz MD [facility] BLOOD BANK TEST ORDERABLESFinal ResultPerforming OrganizationAddressCity/State/ZIP Code Phone Number [facility] BLOOD [facility] [address] [place] [address] * BB ORDER ONLY - Antibody Identification (01/29/2025 1:39 PM EDT)ComponentValue Ref RangeTest MethodAnalysis TimePerformed AtPathologist SignatureAntibody ID ANTI-D001/31/2025 11:04 AM [facility] BLOOD BANKCASE #BB - [id number]/31/2025 11:04 AM [facility] BLOOD BANKSpecimen (Source)Anatomical Location / Laterality Collection Method / VolumeCollection TimeReceived TimeBloodVenous blood specimen / UnknownArterial Line / Yjvgyuo1001/29/2025 1:39 PM EDT01/29/2025 2:20 PM EDT Narrative [facility] B[facility]OD B[facility] - 01/31/2025 11:04 AM EDT WEAK UN-EXPLAINED REACTION IS PROBABLY DUE TO HLA ANTIBODY. Authorizing ProviderResult TypeResult StatusVee Cruz MD [facility] BLOOD [facility] TEST ORDERABLESFinal ResultPerforming OrganizationAddressCity/State/ZIP Code Phone Number [facility] BLOOD [facility] [address] [place] [address] * Type and Screen (01/29/2025 1:39 PM EDT) Only the most recent of2 resultswithin the time period is included. ComponentValueRef RangeTest MethodAnalysis TimePerformed AtPathologist Signature ABO TYPEB01/29/2025 3:56 PM EDTGE[facility] BLOOD BANKRh JZHXNWL4501/29/2025 3:56 PM EDT [facility] BLOOD BANKANTIBODY CBYCNGBPP01/23/2025 3:56 PM EDTGE[facility] BLOOD BANKSpecimen (Source)Anatomical Location / LateralityCollection Method / VolumeCollection TimeReceived TimeBloodVenous blood specimen / UnknownArterial Line / Unknown 01/29/2025 1:39 PM EDT01/29/2025 2:20 PM EDT Narrative [facility] BLOOD [facility]ANK - 01/29/2025 3:56 PM EDT Review your Rh Negative female patient's potential need for Rh Immune Globulin (RhIg)administration. Authorizing ProviderResult TypeResult StatusVee Cruz MD [facility] BLOOD BANK TEST ORDERABLESFinal ResultPerforming OrganizationAddressCity/State/ZIP Code Phone Number [facility] BLOOD BANK [address] [place] [address] * Surgical Pathology Exam (01/29/2025 9:05 AM EDT)ComponentValueRef RangeTest MethodAnalysis TimePerformed AtPathologist SignatureCase ReportSurgical Pathology ?Case: [id number] ? Authorizing Provider: ??Hossein Potter MD ?Collected: ? 01/29/2025 09 ? Ordering Location: ? [facility] ? Received: ?01/29/2025 1050 ? [facility] OR ? Pathologist: ? Salvador Frederick MD ? Specimen: ?LIGAMENT, MEDIAN ARCUATE LIGAMENT ? 02/13/2025 9:25 AM [facility] LABFINAL DIAGNOSISSoft Tissue, Designated as Median Arcuate Ligament , Excision: Fibrous tissue with portions of peripheral nerve.02/13/2025 9:25 AM [facility] at 0925 EDTBy the signature on this report, the individual or group listed as making the Final Interpretation/Diagnosis certifies that they have reviewed this case.02/13/2025 9:25 AM [facility] XSIDordcamXQ27 highlights fibrous tissue and S100 and SOX10 highlight the portions of peripheral nerve.02/13/2025 9:25 AM [facility] Clinical HistoryPre-op diagnosis: Median arcuate ligament syndrome [I77.4]02/13/2025 9:25 AM [facility] LABGross DescriptionReceived in formalin, labeled with the patient's name and hospital number and median arcuate ligament , is a segment of soft, fibrous tissue measuring 0.9 x 0.5 x 0.2 cm. The specimen is bisected and entirely submitted in one cassette. JSD 02/13/2025 9:25 AM [facility] LABDisclaimerOne or more of the reagents used to perform assays on this specimen MAY have contained components considered to be analyte specific reagents (ASR's). ASR's have not been cleared or approved by the U.S. Food and Drug Administration. These assays were developed and their performance characteristics determined by the Department of Pathology at [facility]. The FDA does not require this test to go through premarket FDA review. This test is used for clinical purposes . It should not be regarded as investigational or for research. This laboratory is certified under the Clinical Laboratory Improvement Amendments (CLIA) as qualified to perform high complexity clinical laboratory testing. The assays were performed with appropriate positive and negative controls which stained appropriately.02/13/2025 9:25 AM [facility] LABSpecimen (Source)Anatomical Location / LateralityCollection Method / VolumeCollection TimeReceived Time Tissue (LIGAMENT)01/29/2025 9:05 AM EDT01/29/2025 10:50 AM EDTComment:MEDIAN ARCUATE LIGAMENT Narrative Authorizing ProviderResult TypeResult StatusWclair NUR PATHOLOGY ORDERABLESFinal ResultPerforming OrganizationAddressCity/State/ZIP CodePhone Number [facility] [phone] [place] [address] * ANESTHESIA ARTERIAL LINE PLACEMENT (01/29/2025 7:52 AM EDT) Narrative Ad Silva CAA - 01/29/2025 7:52 AM EDT ELISA Lambert 01/29/2025 8:16 AM Arterial Line: Date/Time: 01/29/2025 7:52 AM Staffing Performed: CAA and FROILAN Authorized by: Nasima Valladares MD ?? Performed by: ELISA Lambert An arterial line was placed. in the OR for the following indication(s): continuous blood pressure monitoring and blood sampling needed. A 20 gauge (size), 1 and 3/4 inch (length), Angiocath (type) catheter was placed into the Left radial artery, secured by TegadermEvents: patient tolerated procedure well with no complications. Authorizing ProviderResult TypeResult Airam HENDRIXTHESIA ORDERABLESFinal Result * ANESTHESIA PERIPHERAL IV PLACEMENT (01/29/2025 7:50 AM EDT) Narrative Ad Silva CAA - 01/29/2025 7:50 AM EDT ELISA Lambert 01/29/2025 8:16 AM Peripheral IV Date/Time: 01/29/2025 7:50 AM Inserted by: ELISA Lambert Placement Needle size: 16 G Laterality: right Location: forearm Local anesthetic: none Site prep: chlorhexidine Authorizing ProviderResult TypeResult Airam Valladares MDANESTHESIA ORDERABLESFinal Result * ANESTHESIA PERIPHERAL IV PLACEMENT (01/29/2025 7:41 AM EDT) Ad Lennon CAA - 01/29/2025 7:41 AM EDT ELISA Lambert 01/29/2025 8:15 AM Peripheral IV Date/Time: 01/29/2025 7:41 AM Inserted by: ELISA Lambert Placement Needle size: 14 G Laterality: left Location: hand Local anesthetic: none Site prep: chlorhexidine Attempts: 1 Authorizing ProviderResult TypeResult Airam HENDRIXSUMMA HEALTH WADSWORTH - RITTMAN MEDICAL CENTERSIA ORDERABLESFinal Result * NE AN ELECTIVE ENDOTRACHEAL AIRWAY (01/29/2025 7:40 AM EDT) Ad Lennon CAA - 01/29/2025 7:40 AM EDT ELISA Lambert 01/29/2025 8:15 AM Airway Date/Time: 01/29/2025 7:40 AM Reason: elective Airway not difficult Staffing Performed: ELISA and FROIALN Authorized by: Nasima Valladares MD ?? Performed by: ELISA Lambert Patient location during procedure: OR Patient Condition Indications for airway management: anesthesia Patient position: sniffing Sedation level: deep Final Airway Details Preoxygenated: yes Final airway type: endotracheal airway Successful airway: ETT Cuffed: yes Successful intubation technique: video laryngoscopy (Mccoy) Adjuncts used in placement: cricoid pressure and intubating stylet Endotracheal tube insertion site: oral Blade: Jarvis Blade size: #3 ETT size (mm): 7.0 Cormack-Lehane Classification: grade I - full view of glottis Placement verified by: chest auscultation, capnometry and palpation of cuff Measured from: lips ETT to lips (cm): 22 Number of attempts at approach: 1 Authorizing ProviderResult TypeResult Airam HENDRIXTHESIA ORDERABLESFinal Result * Abo/Rh Group Test - STAT (VERAB) (01/29/2025 6:10 AM EDT)ComponentValueRef RangeTest MethodAnalysis TimePerformed AtPathologist SignatureABO TYPEB 01/29/2025 8:35 AM [facility] BLOOD BANKRh LYTLEAD0901/29/2025 8:35 AM [facility] BLOOD BANKSpecimen (Source)Anatomical Location / LateralityCollection Method / VolumeCollection TimeReceived TimeBloodVenous blood specimen / Unknown Venipuncture / Lxzqfyl0001/29/2025 6:10 AM EDT01/29/2025 6:21 AM EDT Narrative [facility] - 01/29/2025 8:35 AM EDT Review your Rh Negative female patient's potential need for Rh Immune Globulin (RhIg)administration. Authorizing ProviderResult TypeResult StatusSara Ziyad NUR BLOOD BANK TEST ORDERABLESFinal ResultPerforming OrganizationAddressCity/State/ZIP CodePhone Number [facility] [address] [place] [address] from Last 3 Months Insurance [place] [id number] Advance Directives For more information, please contact: [phone] (Available ) * Full Code (Latest Code Status on File) Date ActivatedDate InactivatedSaint [facility] Hospitalments01/29/2025 5:50 AMQuestionAnswerComments Plan of Care:* Code Status Discussion Completed Decision Maker:* Patient Care Teams Team MemberRelationshipSpecialtyStart DateEnd Date Cyndi Epperson, ASSOCIATE MEDIA DIRECTOR-PROJECT MANAGER SENIOR [address] [place] [id number] PCP - General06/18/24
--- OUTSIDE RECORDS SUMMARY | 2025-04-19 08:06 | XMS_ITS | Clinical Summary ---
Author Organization [facility] Address [address] [place] [address] Care Team Providers [place] Records Management Officer Name Role Phone Cyndi Epperson CNP Primary Care Provider Social History Tobacco UseTypesPacks/DayYears UsedDateSmoking Tobacco: Never Assessed CommentsUnknownSex and Gender InformationValueDate RecordedSex Assigned at Not on fileLegal KmvEetszi75/20/2013 6:43 AM EDTGender IdentityNot on fileSexual OrientationNot on file Plan of Treatment Health MaintenanceDue DateLast DoneCommentsAnxiety Jdpwfeblp09/17/1997Depression Wgsjcyqqf32/17/1997HIV Ndraydlrh85/17/1997Hepatitis C Oybggcymz85/17/1997 Hepatitis B Vaccine (1 of 3 - 19+ 3-dose series)1997Cervical Cancer Vsjqmbskv26/17/2000DTaP,Tdap,Td Vaccine (2 - Td or Tdap)/01/2013CT Ueenrzrhujsa69/17/2024ologuard (FIT-DNA)11/23/20230487Vxhwtkhgtvm66/17/2024 Colorectal Cancer Cgsucobkp08/17/2024iabetes Vevncbqpv33/17/2024Fecal Occult Blood11/23/2023Lipid Pikjpyiuf01/17/6909Porqkczmvyoqh04/17/2024ovid-19 Vaccine ( - season)/, 03/04/2021Influenza Vaccine (#1) 09/01/Mammogram Nylbrnehl21 Care Teams Team MemberRelationshipSpecialtyStart DateEnd Date Cyndi Epperson, COUNSELLING PSYCHOLOGIST [address] [place] [address] PCP - GeneralFamily Armgwbek57/25/24
[2025-04-19 08:29] LABS: Hematocrit 37.3 % (36.0-48.0); Hemoglobin 13.0 g/dL (12.0-16.0); Immature Granulocytes Abs Auto 0.02 10^3/uL (0.00-0.03); Immature Granulocytes Pct Auto 0.2 % (0.0-0.5); Lymphocytes Absolute Auto 2.6 10^3/uL (1.2-3.8); Mean Corpuscular HGB Conc 34.9 g/dL (29.9-35.2); Mean Corpuscular Hemoglobin 31.6 pg (26.7-34.0); Mean Corpuscular Volume 90.8 fL (81.0-99.0); Platelet Count 155 10^3/uL (150-450); Red Blood Count 4.11 10^6/uL (4.20-5.40); White Blood Count 8.6 10^3/uL (4.0-11.0)
[2025-04-19 08:42] LABS: Glucose Urine UA NEGATIVE (NEGATIVE)
--- NOTE | 2025-04-19 08:45 | MM_ITS ---
Patient Name: LORA MARTINS MR#: [id number] : 1980 Exam Date: 04/19/2025 Ordering Doctor: KP GARCIA CNP RADIOLOGY REPORT PROCEDURE: MM TOMOSYNTHESIS SCREENING BI COMPARISON: MM TOMOSYNTHESIS SCREENING BI, 01/27/2024. MG MAMM DIAGNOSTIC 3D [place] CAD, 04/08/2022. MG MAMM SCREEN 3D [place] CAD, 09/03/2021. INDICATIONS: Screening Calculator Name NCI Breast Cancer Risk Assessment Tool 5 Year Breast Cancer Risk 1.30% Lifetime Breast Cancer Risk 9.80% Personal Breast Cancer No Personal Ovarian Cancer No Treatments None Family Cancers Grandmother-paternal with breast cancer at age ~55; Father with unknown cancer at age 59; Mother with pancreatic cancer at age 57. LOCATION: [facility] BREAST COMPOSITION: The breasts are heterogeneously dense, which may obscure small masses. FINDINGS: RIGHT BREAST: No significant suspicious finding. Similar focal asymmetries are noted. Benign-appearing calcifications are present. LEFT BREAST: No significant suspicious finding. There is a similar focal asymmetry. Benign-appearing calcification is noted. There is a similar biopsy clip on the left. DIAGNOSTIC CATEGORY 2--BENIGN FINDING. NO CHANGE FROM COMPARISON. RECOMMENDATIONS: ROUTINE MAMMOGRAM AND CLINICAL EVALUATION IN 12 MONTHS. Dictated by: Bubba Avalos MD on 04/19/2025 at 13:21 Approved by: Bubba Avalos MD on 04/19/2025 at 13:29
[2025-04-19 08:48] LABS: Alanine Aminotransferase 15 U/L (14-59); Albumin Globulin Ratio 1.5; Albumin Level 4.2 g/dL (3.4-5.0); Alkaline Phosphatase 40 U/L (46-116); Anion Gap 12.3; Aspartate Amino Transferase 13 U/L (15-37); Blood Urea Nitrogen 17.0 mg/dL (7.0-18.0); Calcium 8.8 mg/dL (8.5-10.1); Carbon Dioxide 29.3 mmol/L (21.0-32.0); Chloride 104 mmol/L (98-107); Cholesterol 178 mg/dL (<=200); Estimated GFR (African America >60 (>=60 mL/min/1.73m^2); Estimated GFR (Non-African Ame >60 (>=60 mL/min/1.73m^2); Globulin 2.8 g/dL; Glucose 97 mg/dL (74-106); HDL Cholesterol 83 mg/dL (40-60); Potassium 3.6 mmol/L (3.5-5.1); Sodium 142 mmol/L (136-145); Total Protein 7.0 g/dL (6.4-8.2); Triglycerides 47 mg/dL (<=150); VLDL CHOLESTEROL 9.4 mg/dL
[2025-04-19 09:00] LABS: Cast Seen? NONE SEEN #/LPF (NONE SEEN); Crystals Seen? None Seen #/HPF (None Seen)
== END 2025-04-19 07:58 | disposition home or self-care (01) ==
PROVIDERS: PCP Nurse Practitioner; Visit Provider Nurse Practitioner
DX: Z00.00 Encounter for general adult medical examination without abnormal findings (principal); Z80.3 Family history of malignant neoplasm of breast; Z80.8 Family history of malignant neoplasm of other organs or systems
CPT/HCPCS: 36415; 77063; 77067; 80053; 80061; 81001; 85025